=== PATIENT | female | born 1945 | race Caucasian/White ===

== ENCOUNTER 2017-01-28 09:08 | Emergency (ER) | payer BC ==
[2017-01-28 09:29] VITALS: BP 157/60
--- NOTE | 2017-01-28 10:27 | UC ---
Skin Complaint HPI - HPI Summary HPI Summary: The patient comes in today for: 1. Diabetic foot ulcers: Onset: Just a week or so beyond two months. Palliative/provocative: Air can make the sores/ulcer pain worse. Quality: Burning Region: Right foot. Severity: 6/10 Time: Constant. Associated symptoms: Fevers: None. Drainage: Clear. Previous treatment: She has been to the wound clinic locally, "last year--I' m not sure when." She was given clindamycin last time and it helped. * - History of Current Complaint Chief Complaint: UCLowerExtremity Time Seen by Provider: 01/28/17 10:20 Stated Complaint: sores on feet Hx Obtained From: Patient - Allergy/Home Medications Allergies/Adverse Reactions: Allergies Allergy/AdvReac Type Severity Reaction Status Date / Time Latex Allergy Rash Verified 01/23/16 07:43 Home Medications: Home Medications Ibuprofen TAB* [Advil TAB*] 1,000 mg PO Q4HR PRN 01/28/17 [History Confirmed 02/11] Sitagliptin (NF) [Januvia (NF)] 1 tab PO DAILY 01/28/17 [History Confirmed 01/28] Review of Systems Constitutional: Negative Skin: Rash - Left foot. Eyes: Negative ENT: Negative Respiratory: Negative Cardiovascular: Negative Gastrointestinal: Negative Genitourinary: Negative All Other Systems Reviewed And Are Negative: Yes PMH/Surg Hx/FS Hx/Imm Hx Previously Healthy: No - Skin: left foot ulcer. Endocrine History Of: Reports: Diabetes - Type 2 Denies: Thyroid Disease, Hyperthyroidism, Hypothyroidism, Dyslipidemia Cardiovascular History Of: Reports: Hypertension Denies: Cardiac Disorders, Pacemaker/ICD, Myocardial Infarction, Congestive Heart Failure, Atrial Fibrillation, Deep Vein Thrombosis, Bleeding Disorders Respiratory History Of: Denies: COPD, Asthma, Bronchitis, Pneumonia, Pulmonary Embolism GI/ History Of: Denies: Gastroesophageal Reflux, Ulcer, Gastrointestinal Bleed, Gall Bladder Disease, Kidney Stones, Diverticulitis, Renal Disease, Urosepsis Neurological History Of: Denies: TIA, CVA, Dementia, Seizures, Migraine Psychological History Of: Denies: Anxiety, Depression, Bipolar Disorder, Schizophrenia, Post Traumatic Stress Disorder Cancer History Of: Reports: Breast Cancer - LEFT 3X 04/08 & 2015 LEFT Denies: Lung Cancer, Colorectal Cancer, Prostate Cancer, Cervical Cancer Other History Of: Anticoagulant Therapy - Aspirin. Negative For: HIV, Hepatitis B, Hepatitis C - Surgical History Surgical History: Yes Surgery Procedure, Year, and Place: Left breast lumpectomy x3, MOST RECENT ;. C section X1 NATURAL X2;. L TKR 2009 [facility] [place] ;. LEFT BREAST BIOPSY WITH CLIPS ; - Family History Known Family History: Positive: Cardiac Disease, Hypertension, Diabetes - Social History Occupation: Employed Full-time Alcohol Use: None Substance Use Type: None Smoking Status (MU): Never Smoked Tobacco Have You Smoked in the Last Year: No - Immunization History Most Recent Influenza Vaccination: none Most Recent Tetanus Shot: unknown Most Recent Pneumonia Vaccination: 2014 Physical Exam Triage Information Reviewed: Yes Appearance: Well-Appearing, No Pain Distress, Well-Nourished Vital Signs: Initial Vital Signs Temp 97.5 F 01/28/17 09:23 Pulse 82 01/28/17 09:23 Resp 18 01/28/17 09:23 BP 157/60 01/28/17 09:23 Pulse Ox 97 01/28/17 09:23 Vital Signs Reviewed: Yes Eyes: Positive: Conjunctiva Clear. Negative: Discharge ENT: Positive: Hearing grossly normal. Negative: Pharyngeal erythema, Nasal congestion, Nasal drainage, TM bulging, TM dull, TM red, Tonsillar swelling, Tonsillar exudate Dental: Negative: Gross Decay/Caries @, Dental Fracture @ Neck: Positive: Supple, Nontender, No Lymphadenopathy. Negative: Nuchal Rigidity Respiratory: Positive: Lungs clear, No respiratory distress, No accessory muscle use. Negative: Crackles, Wheezing Cardiovascular: Positive: RRR, No Murmur Abdomen Description: Positive: Nontender, No Organomegaly, Soft. Negative: Distended, Guarding Musculoskeletal: Positive: Strength Intact, ROM Intact Neurological: Positive: Alert, Muscle Tone Normal Psychological: Positive: Age Appropriate Behavior, Consolable Skin: Positive: Other - She has chronic edema, and varicose veins of the left foot. There are shallow ulcers from 1 x 1.5 cm at the largest of the left lateral foot, to one more on the lateral side and 1 on the medial side of the left foot both under 1 x 1 cm. Course/Dx - Course Course Of Treatment: Patient was told of her treatment options. At this time, she only wants to be started on clindamycine like she had before and to see her primary care provider this coming week. - Diagnoses Provider Diagnoses: Diabetic left foot ulcers. Discharge - Discharge Plan Condition: Stable Disposition: HOME Patient Education Materials: Foot Care for People with Diabetes (ED), Diabetic Foot Ulcers (ED) Referrals: Odalys Adames MD [Primary Care Provider] - (Please see your primary care provider in a week to see how well you are doing. If you get worse, please be seen sooner in the ER or through us.)
== END 2017-01-28 10:50 | disposition home or self-care (01) ==
LOC: UCEAST 09:08
DX: E11.621 Type 2 diabetes mellitus with foot ulcer (principal); Z79.82 Long term (current) use of aspirin
CPT/HCPCS: 99212; G0463

== ENCOUNTER 2018-01-23 07:56 | Day surgery (SDC) | payer BC, OTHER ==
[2018-01-23] MEDS ORDERED: Naloxone* 0.4 MG/ML 1 ML VIAL IV PRN (09:15)
[2018-01-23] MEDS ORDERED: Bupivacaine 0.25% SDV* 30 ML ONE (09:26)
[2018-01-23] MEDS ORDERED: fentaNYL* 50 MCG/ML 2 ML VIAL (100 MCG VIAL) ONE (09:31)
[2018-01-23] MEDS ORDERED: Midazolam* 1 MG/ML 2 ML VIAL (2 MG) ONE (09:31)
[2018-01-23] MEDS ORDERED: ceFAZolin 1 GM in Dextrose (*) 2 GM/100 ML BAG IVPB ONE (09:40)
[2018-01-23] MEDS ORDERED: Propofol* 10 MG/ML 20 ML BTL IV PUSH ONE (09:45)
[2018-01-23 10:54] VITALS: BP 128/76
--- NOTE | 2018-01-28 04:46 | OP ---
DATE OF OPERATION: 01/23/18 - [facility] DATE OF : 49 SURGEON: Paul Nathan MD SHIPPING AND RECEIVING CLERK: JOVANNI Resendiz ANESTHESIOLOGIST: Dr. Mccall. ANESTHESIA: Local MAC. PRE-OP DIAGNOSIS: Right carpal tunnel syndrome. POST-OP DIAGNOSIS: Right carpal tunnel syndrome. OPERATIVE PROCEDURE: Right open carpal tunnel release. INDICATIONS: Liz has had progressive right carpal tunnel syndrome. We talked about risks and benefits. She wanted to proceed with the surgery. ESTIMATED BLOOD LOSS: 2 mL. COMPLICATIONS: None. FINDINGS: As expected. DESCRIPTION OF PROCEDURE: After we come back to the operating room, the area had been infiltrated with 0.25% Marcaine. The arm was prepped and draped in usual fashion. The arm was exsanguinated with the Esmarch and the tourniquet was inflated to 250 mmHg. A 2 to 3 cm incision was then made in the standard location for an open carpal tunnel release. Dissection was carried down through the skin and subcutaneous tissue. Transverse carpal ligament was released just off the radial aspect of the hook of the hamate. The release was completed distally and proximally. The fascia and subcutaneous tissue were released and retracted volarly and ulnarly with Iraida retractor. The remainder of the distal antebrachial fascia and transverse carpal ligament was released with the tenotomy scissors under direct visualization. The release was completed at that point and so I irrigated out the wound. The skin was closed with 4-0 nylon suture. The wound was dressed with Xeroform, 4 x 4s, sterile Webril, and an Cornelio wrap. She was woken up and taken to the recovery room in stable condition. [id number]/[facility] #: [id number] MTDD
== END 2018-01-23 11:02 | disposition home or self-care (01) ==
LOC: OR 07:56
PROVIDERS: ATTEND Orthopaedic Surgery Hand Surgery
DX: G56.01 Carpal tunnel syndrome, right upper limb (principal); E11.9 Type 2 diabetes mellitus without complications; Z79.84 Long term (current) use of oral hypoglycemic drugs; I10 Essential (primary) hypertension; Z85.3 Personal history of malignant neoplasm of breast; M19.90 Unspecified osteoarthritis, unspecified site; L03.116 Cellulitis of left lower limb
CPT/HCPCS: J0690; J2250; J2704; J3010

== ENCOUNTER 2018-02-13 05:52 | Day surgery (SDC) | payer BC, OTHER ==
[2018-02-13] MEDS ORDERED: Buffered Lidocaine 0.9% SYRIN* 5 ML/SYR SYRINGE ONE (05:55)
[2018-02-13] MEDS ORDERED: Buffered Lidocaine 0.9% SYRIN* 5 ML/SYR SYRINGE INTRADERM ONE (06:00)
[2018-02-13] MEDS ORDERED: Bupivacaine 0.25% SDV* 30 ML ONE (06:58)
[2018-02-13] MEDS ORDERED: fentaNYL* 50 MCG/ML 2 ML VIAL (100 MCG VIAL) ONE (07:32)
[2018-02-13] MEDS ORDERED: Midazolam* 1 MG/ML 2 ML VIAL (2 MG) ONE (07:32)
[2018-02-13] MEDS ORDERED: Propofol* 10 MG/ML 20 ML BTL IV PUSH ONE (07:34)
[2018-02-13] MEDS ORDERED: Lidocaine 2% PF * 5 ML VIAL ONE (07:34)
[2018-02-13] MEDS ORDERED: Naloxone* 0.4 MG/ML 1 ML VIAL IV PRN (08:09)
[2018-02-13 08:46] VITALS: BP 137/67
--- NOTE | 2018-02-13 23:06 | OP ---
DATE OF OPERATION: 02/13/18 - [facility] DATE OF : 49 SURGEON: Paul Nathan MD TRACTOR OPERATOR HELPER: JOVANNI Resendiz ANESTHESIOLOGIST: Shaquille Mccall DO ANESTHESIA: Local MAC. PRE-OP DIAGNOSIS: Left carpal tunnel syndrome. POST-OP DIAGNOSIS: Left carpal tunnel syndrome. OPERATIVE PROCEDURE: Left open carpal tunnel release. INDICATIONS: Liz has done well with a right carpal tunnel release. We talked about risks and benefits. She wanted to proceed with left carpal tunnel release. ESTIMATED BLOOD LOSS: 2 mL. COMPLICATIONS: None. FINDINGS: As expected. DESCRIPTION OF PROCEDURE: Liz was seen in the preoperative holding area. The correct side, site, and the procedure were identified. We came back to the operating room. The arm was prepped and draped in the usual fashion. A time- out was performed. I began by exsanguinating the arm with Esmarch and the tourniquet was inflated to 250 mmHg. A 2- to 3-cm longitudinal incision was made in a standard location for an open carpal tunnel release. Dissection was carried down through the skin and subcutaneous tissue. The transverse carpal ligament was released off the radial aspect of the hook of the hamate. The release was completely distally and I then proximally released the fascia and subcutaneous tissue and under direct visualization, I released the remainder of the transverse carpal ligament and the distal antebrachial fascia with the tenotomy scissors. I then checked the release, everything was completely released distally and proximally. There was absolutely no compression on the nerve. The wound was irrigated out. The skin was closed with 4-0 nylon suture. Wound was dressed with Xeroform, 4x4s, sterile Webril, and an Cornelio bandage. She was taken to the recovery room in stable condition. [id number]/[facility] #: [id number] MTDD
== END 2018-02-13 09:07 | disposition home or self-care (01) ==
LOC: OR 05:52
PROVIDERS: ATTEND Orthopaedic Surgery Hand Surgery
DX: G56.02 Carpal tunnel syndrome, left upper limb (principal); I10 Essential (primary) hypertension; E11.9 Type 2 diabetes mellitus without complications; Z85.3 Personal history of malignant neoplasm of breast; M19.90 Unspecified osteoarthritis, unspecified site; L03.116 Cellulitis of left lower limb; Z79.82 Long term (current) use of aspirin; Z79.899 Other long term (current) drug therapy
CPT/HCPCS: J2250; J2704; J3010

== ENCOUNTER 2018-06-23 08:09 | Emergency (ER) | payer BC ==
[2018-06-23 08:18] VITALS: BP 176/80
--- NOTE | 2018-06-23 08:54 | UC ---
Knee Pain HPI - HPI Summary HPI Summary: RIGHT KNEE PAIN WORSENING OVER THE PAST 3 WEEKS. NO DISCRETE INJURY OR TRAUMA. PATIENT REPORTS SHE HAD A TOTAL LEFT KNEE REPLACEMENT ABOUT 9 YEARS AGO AND STATES HER RIGHT KNEE FEELS LIKE IT'S GOING DOWN THE SAME ROAD. HAS AN APPOINTMENT WITH DR. LYLES ON 07/07/18. BUT WAS SENT FROM WORK TODAY BECAUSE SHE CAN BARELY WALK. - History of Current Complaint Chief Complaint: UCLowerExtremity Stated Complaint: LEG PAIN Time Seen by Provider: 06/23/18 08:23 Hx Obtained From: Patient Onset/Duration: Gradual Onset, Lasting Weeks, Still Present Severity Initially: Moderate Severity Currently: Moderate Pain Intensity: 8 Pain Scale Used: 0-10 Numeric Character: Sharp, Aching Aggravating Factor(s): Movement, Weight Bearing Alleviating Factor(s): Rest Able to Bear Weight: Yes - WITH PAIN - Allergies/Home Medications Allergies/Adverse Reactions: Allergies Allergy/AdvReac Type Severity Reaction Status Date / Time latex Allergy Rash Verified 06/23/18 08:18 Home Medications: Home Medications Calcium Carb/Mag/Vitamin D3 [Coral Calcium 1,500 mg Cap] 1 cap PO DAILY [History Confirmed 06/23/18] Cholecalciferol (Vitamin D3) [Vitamin D3] 5,000 unit PO DAILY 06/23/18 [History Confirmed 06/23/18] Sitagliptin Phosphate [Januvia] 30 mg PO DAILY 06/23/18 [History Confirmed 06/23] PMH/Surg Hx/FS Hx/Imm Hx Endocrine History: Diabetes Cardiovascular History: Hypertension Cancer History: Breast Cancer Other History Of: Anticoagulant Therapy - Aspirin. Negative For: HIV, Hepatitis B, Hepatitis C - Surgical History Surgical History: Yes Surgery Procedure, Year, and Place: 2005, 2009, [address] [facility] [place]. [address] [facility] [place]. [address] [facility] [place] ;. 12/27/2017 LEFT BREAST BIOSPSY, CLIPS, NEG. [facility] [place] - Family History Known Family History: Positive: Cardiac Disease, Hypertension, Diabetes - Social History Alcohol Use: None Substance Use Type: None Smoking Status (MU): Never Smoked Tobacco Have You Smoked in the Last Year: No - Immunization History Most Recent Influenza Vaccination: none Most Recent Tetanus Shot: unknown Most Recent Pneumonia Vaccination: 2014 Review of Systems Constitutional: Negative Skin: Negative Respiratory: Negative Cardiovascular: Negative Gastrointestinal: Negative Musculoskeletal: Arthralgia All Other Systems Reviewed And Are Negative: Yes Physical Exam Triage Information Reviewed: Yes Appearance: Well-Appearing, No Pain Distress, Well-Nourished Vital Signs: Initial Vital Signs Temp 98 F 06/23/18 08:14 Pulse 81 06/23/18 08:14 Resp 16 06/23/18 08:14 BP 176/80 06/23/18 08:14 Pulse Ox 100 06/23/18 08:14 Vital Signs Reviewed: Yes Eyes: Positive: Conjunctiva Clear ENT: Positive: Hearing grossly normal Neck: Positive: Supple Respiratory: Positive: No respiratory distress, No accessory muscle use Cardiovascular: Positive: Pulses Normal Abdomen Description: Positive: Soft Musculoskeletal: Positive: ROM Intact, No Edema, Other: - RIGHT KNEE: NO TENDERNESS OVER ANY BONY PROMINENCES. MCL AND LCL INTACT TO STRESS TESTING. NEG LACHMANS. NEG DRAWERS SIGNS. TENDER OVER MEDIAL AND LATERAL JOINT LINES AND POSITIVE MCMURRAYS. POS PATELLAR APPREHENSION TEST. NO TENDERNESS OVER PATELLAR LIGAMENT OR QUADRICEPS TENDON. FULL ROM. POSITIVE CREPITUS Neurological: Positive: Alert Psychological: Positive: Age Appropriate Behavior Skin: Negative: rashes Diagnostics - Radiology RIGHT KNEE XRAY Xray Interpretation: Positive (See Comments) - moderate to advanced tricompartmental osteoarthritis Radiology Interpretation Completed By: Radiologist Knee Pain Course/Dx - Differential Dx/Diagnosis Provider Diagnoses: MOD/ADVANCED OSTEOARTHRITIS RIGHT KNEE Discharge - Sign-Out/Discharge Documenting (check all that apply): Patient Departure - Discharge Plan Condition: Stable Disposition: HOME Prescriptions: HYDROcodone/ACETAMIN 5-325 MG* [[place] 5-325 TAB*] 1 tab PO Q6H PRN #15 tab MDD 4 PRN Reason: Pain Ibuprofen TAB* [Motrin TAB* 800 MG] 800 mg PO Q8H PRN #30 tab PRN Reason: Pain Patient Education Materials: Osteoarthritis (ED), Knee Pain (ED) Forms: *Work Release Referrals: Odalys Adames MD [Primary Care Provider] - If Needed Additional Instructions: MODERATE TO SEVERE OSTEOARTHRITIS SEEN ON X-RAY TODAY. REST, COMPRESS, ELEVATE. USE YOUR CRUTCHES NEEDED TO HELP WITH MOBILITY. KEEP YOUR ORTHOPEDIC FOLLOW-UP WITH DR. LYLES ON 07/07/18. NOTE FOR WORK PROVIDED TODAY. IBUPROFEN FOR DISCOMFORT. HYDROCODONE FOR BREAKTHROUGH. WHILE YOU'RE USING HYDROCODONE DO NOT USE TRAMADOL. - Billing Disposition and Condition Condition: STABLE Disposition: Home
--- NOTE | 2018-06-23 09:14 | RAD ---
HISTORY: worsening pain COMPARISONS: None VIEWS: 4, Frontal, lateral, axial, and oblique views of the right knee FINDINGS: BONE DENSITY: There is diffuse osteopenia. BONES: There is no displaced fracture. JOINTS: There is moderate to advanced tricompartmental osteoarthritis. There is no suprapatellar joint effusion or lipohemarthrosis. ALIGNMENT: There is no dislocation. SOFT TISSUES: Unremarkable. OTHER FINDINGS: None. IMPRESSION: OSTEOARTHRITIS. NO ACUTE OSSEOUS INJURY. IF SYMPTOMS PERSIST, RECOMMEND REPEAT IMAGING.
== END 2018-06-23 10:01 | disposition home or self-care (01) ==
LOC: UCEAST 08:09
DX: M17.11 Unilateral primary osteoarthritis, right knee (principal); I10 Essential (primary) hypertension; E11.9 Type 2 diabetes mellitus without complications; Z85.3 Personal history of malignant neoplasm of breast; Z79.82 Long term (current) use of aspirin
CPT/HCPCS: 99212; G0463

== ENCOUNTER 2018-08-17 10:40 | Inpatient (IN) | payer BC ==
--- NOTE | 2018-08-08 20:37 | HP ---
HISTORY AND PHYSICAL: DATE OF ADMISSION/SURGERY: 08/17/18 DATE OF OFFICE VISIT: 08/07/18 SURGEON: Alejandra Castanon MD * (DICTATED BY JOVANNI VILLALPANDO) PROCEDURE: Right total hip arthroplasty. CHIEF COMPLAINT: Right hip pain. HISTORY OF PRESENT ILLNESS: Ms. Leon is a 73-year-old female with complaints of right hip pain. She has failed conservative treatment and elected to proceed with a right total hip arthroplasty. PAST MEDICAL HISTORY: Breast cancer, diabetes, and hypertension. PAST SURGICAL HISTORY: Lumpectomy x3, left total knee arthroplasty, bilateral carpal tunnel release, and . CURRENT MEDICATIONS: 1. Lisinopril 30 mg daily. 2. Januvia 30 mg daily. 3. Metformin 500 mg twice a day. 4. Furosemide 20 mg every day. 5. Aspirin 81 mg daily. 6. Calcium. 7. Vitamin D3. 8. Vitamin C. 9. Potassium. 10. Hydrochlorothiazide 12.5 mg daily. 11. Tramadol 50 mg every 6 hours as needed. ALLERGIES: To LATEX and TAPES. FAMILY HISTORY: Diabetes, kidney disease, stroke, and heart disease. SOCIAL HISTORY: She is a 73-year-old female. She lives with her sister. She does not smoke, use drugs or alcohol. REVIEW OF SYSTEMS: A complete 14-point review of systems was reviewed with the patient. It was positive for diabetes. She denies a history of DVT, PE, hepatitis, HIV, or anesthesia problems. PHYSICAL EXAMINATION GENERAL: She is well developed, well nourished, in no acute distress. VITAL SIGNS: She stands 5 feet 8 inches tall, weighs 225 pounds. Her blood pressure is 144/82, and heart rate is 72. HEENT: Normocephalic, atraumatic. NECK: Supple. No palpable lymph nodes. PULMONARY: Lungs are clear to auscultation bilaterally. CARDIO: Regular rate and rhythm. Strong S1, S2. ABDOMEN: Soft, nontender, nondistended. MUSCULOSKELETAL: Right lower extremity: The skin is intact. There are no open wounds or abrasions. She walks with an antalgic-type gait favoring her right hip. She has decreased internal and external rotation of the right hip. She has a 2+ dorsalis pedis pulse, intact sensation. Her lower extremity muscle group strengths are intact at 5/5. NEUROLOGICAL: She is alert and oriented x3. ASSESSMENT AND PLAN: Ms. Leon is a 73-year-old female with end-stage osteoarthritis of the right hip. She has failed conservative treatment and elected to proceed with a right total hip arthroplasty, which is scheduled for 08/17/[address] Castanon discussed the risks and benefits of the surgery at today's visit and all of her questions were answered. She will follow up with Dr. Castanon 2 weeks after the surgery. JOVANNI VILLALPANDO [id number]/[facility] #: [id number] GUMARO
[~2018-08-17 10:40] MED LIST: Buffered Lidocaine 0.9% SYRIN* 5 ML/SYR SYRINGE INTRADERM ONE; Famotidine IV* 10 MG/ML 2 ML (20 mg) IV ONE
[2018-08-17] MEDS ORDERED: Dexamethasone IV* 4 MG/ML 1 ML (4 MG) ONE (10:58)
[2018-08-17] MEDS ORDERED: ROPIVACAINE 5 MG/ML 30 ML BTL (0.5%) ONE (10:58)
[2018-08-17] MEDS ORDERED: Lidocaine 2% PF * 5 ML VIAL ONE (10:58)
[2018-08-17] MEDS ORDERED: fentaNYL* 50 MCG/ML 2 ML VIAL (100 MCG VIAL) ONE ×4 (10:58→15:48)
[2018-08-17] MEDS ORDERED: Ondansetron INJ* 2 MG/ML VIAL ONE (10:58)
[2018-08-17] MEDS ORDERED: Ketorolac INJ* 30 MG/ML 1 ML VIAL ONE (10:58)
[2018-08-17] MEDS ORDERED: Propofol* 10 MG/ML 20 ML BTL IV PUSH ONE (10:58)
[2018-08-17] MEDS ORDERED: Midazolam* 1 MG/ML 5 ML VIAL (5 MG) ONE (10:59)
[2018-08-17] MEDS ORDERED: KETAMINE HCL* 50 MG/ML 10 ML VIAL ONE (10:59)
[2018-08-17] MEDS ORDERED: HYDROmorphone INJ1* 1 MG/ML SYRINGE ONE ×2 (11:09→16:59)
[2018-08-17] MEDS ORDERED: ceFAZolin 2 GM in NS PREMIX(*) 2 GM/100 ML BAG IVPB ONE (11:36)
[2018-08-17] MEDS ORDERED: Famotidine IV* 10 MG/ML 2 ML (20 mg) ONE (12:03)
[2018-08-17] MEDS ORDERED: Cisatracurium* 2 MG/ML MDV 5 ML ONE (12:08)
--- NOTE | 2018-08-17 15:00 | RAD ---
INDICATION: Right hip replacement surgery. COMPARISON: Comparison is made with a prior study from July 07, 2018. TECHNIQUE: A single portable AP view of the right hip was obtained in the operating room. FINDINGS: The patient is undergoing a total right hip replacement surgery. The acetabular prostheses is in place. There is a femoral prostheses template in place. IMPRESSION: INTRAOPERATIVE CONTROL FILMS.
--- NOTE | 2018-08-17 17:30 | RAD ---
HISTORY: s/p RIGHT BETINA COMPARISONS: July 07, 2018 VIEWS: 3 , Frontal view of the pelvis with frontal and crosstable lateral views of the right hip FINDINGS: BONE DENSITY: Normal. BONES: The patient is status post right hip arthroplasty. There is no hardware failure or osteolysis. JOINTS: The patient is status post right hip arthroplasty. ALIGNMENT: There is no dislocation. SOFT TISSUES: There are calcified uterine fibroids. OTHER FINDINGS: Degenerative changes noted of the lumbar spine. IMPRESSION: STATUS POST RIGHT HIP ARTHROPLASTY.
--- OUTSIDE RECORDS SUMMARY | 2018-08-17 17:47 | XMS REPORT ---
:1945 External Reference #:[id number] Author Organization [employer] Address [address] [facility] [place] [address] Phone [phone] Care Team Providers Name Role Phone Odalys Adames MD Primary Care Physician Unavailable Payers Type Date Identification Numbers Payment Provider Subscriber Health Maintenance Policy Number: [facility] Ashia Pradhantler [facility] ([facility]) [id number] Group Number: [id number] [address] [address] PayID: [id number] BRAULIO Garcia [id number] Workers Compensation Effective: 10/05/2017 Policy Number: Travelers Ashia Herrera [id number] Onset: 10/05/2017 Group Name: Sheron [phone] [address] PayID: [id number] [place] [address] Problems Date Description Provider Status Onset: 07/07/2018 Arthroplasty of knee Alejandra Castanon M.D. Active Onset: 07/07/2018 Localized, primary osteoarthritis of the Alejandra Castanon M.D. Active pelvic region and thigh Onset: 07/07/2018 Localized, primary osteoarthritis Alejandra Castanon M.D. 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 ETOH Use Denies alcohol use Smoking Patient has never smoked Exercise Type/Frequency Exercises sporadically Allergies, Adverse Reactions, Alerts Date Description Reaction Status Severity Comments 10/26/2017 Latex active 10/26/2017 Tape active Medications Medication Date Status Form Strength Qnty SIG Indications Ordering Provider Lisinopril 10/26/ Active Tablets 30mg 30tab 1 by Paul Mart s mouth Nathan, every MD day Januvia 10/26/ Active Tablets 30mg 90tab 1 by Paul Nathan, every MD day Metformin HCL 0000/ Active Tablets 500mg 1 by Unknown 0000 mouth twice a day Furosemide 00/00/ Active Tablets 20mg 1 by Unknown 0000 mouth every day Hydrochlorothiazide 00/ Active Capsules 12.5mg 1 by Unknown 0000 mouth every day Tramadol HCL / Active Tablets 50mg 1-2 Unknown 0000 tablets every 6 hours as needed Aspirin 81 Low Dose / Hx 1 by Unknown 0000 - mouth 2017 day Coral Calcium / Hx Capsules 1500mg 2 tabs Unknown 0000 - daily 2017 Vitamin D3 / Hx Capsules 5000Unit 1 by Unknown 0000 - mouth 2017 day Vitamin C / Hx 1 tab by Unknown 0000 - mouth 08/06/ a 2017 day Potassium /00/ Hx Tablets 99mg once a Unknown 0000 - day 2017 Ibuprofen // Hx Tablets 200mg as Unknown 0000 - needed 2017 Vital Signs Date Vital Result Comment 08/07/2018 Height 68 inches 5'8" Weight 224.00 lb Heart Rate 72 /min BP Systolic 144 mmHg BP Diastolic 82 mmHg BMI (Body Mass Index) 34.1 kg/m2 07/07/2018 Height 68.5 inches 5'8.50" Weight 223.00 lb Heart Rate 76 /min BP Systolic Sitting 144 mmHg BP Diastolic Sitting 70 mmHg Respiratory Rate 16 /min Pain Level 7 BMI (Body Mass Index) 33.4 kg/m2 03/21/2018 Height 68.5 inches 5'8.50" Heart Rate 81 /min BP Systolic 136 mmHg BP Diastolic 88 mmHg Respiratory Rate 16 /min Body Temperature 98.6 F Pain Level 2 02/21/2018 Height 68.5 inches 5'8.50" Weight 240.00 lb Heart Rate 85 /min Respiratory Rate 15 /min Body Temperature 97.9 F Pain Level 2 BMI (Body Mass Index) 36.0 kg/m2 01/31/2018 Height 68.5 inches 5'8.50" Weight 240.00 lb Heart Rate 77 /min BP Systolic 142 mmHg BP Diastolic 84 mmHg Respiratory Rate 15 /min Body Temperature 98.6 F Pain Level 1 BMI (Body Mass Index) 36.0 kg/m2 01/03/2018 Height 68.5 inches 5'8.50" Heart Rate 97 /min BP Systolic 148 mmHg BP Diastolic 84 mmHg Respiratory Rate 16 /min Body Temperature 98.7 F Pain Level 2 12/02/2017 Height 68.5 inches 5'8.50" Heart Rate 62 /min Respiratory Rate 20 /min Body Temperature 97.8 F Pain Level 0 10/26/2017 Height 68.5 inches 5'8.50" Weight 240.00 lb BP Systolic 150 mmHg BP Diastolic 82 mmHg Body Temperature 97.7 F Pain Level 5 BMI (Body Mass Index) 36.0 kg/m2 Results Test Date Test Result H/L Range Note Laboratory test 02/13/2018 Point of Care 134 mg/dL High 70-100 1 finding Glucose Laboratory test 01/23/2018 Point of Care 133 mg/dL High 70-100 2 finding Glucose Laboratory test 10/24/2017 Surgical Pathology SEE RESULT BELOW 3 finding Wound Culture/Sensi 04/11/2017 Wound/Misc SEE RESULT BELOW 4 Culture-Gram Stain Wound Culture/Sensi 03/03/2017 Wound/Misc SEE RESULT BELOW 5, 6 Culture-Gram Stain 1 Nuclear Physics Professor: [id number] Nuclear Physics Professor: [id number] 3 SEE RESULT BELOW Name: ASHIA HERRERA : [address]: Amina Solomon MD Acct: [id number] Unit: [id number] AGE: 72 Location: WOUND Re10/24/17 SEX: F Status: REG REF SPEC: [id number] LUKE: 10/24/17 [facility] DR: Amina Solomon MD REQ: [id number] RECD: 10/24/17 STATUS: JUAN ESTRADA DR: Ashlee Adames MD _ ORDERED: LEVEL 4 FINAL DIAGNOSIS Skin, left foot, biopsy: -- Ulcer and ulcer bed with chronic stasis change. -- No evidence of neoplasia. CLINICAL HISTORY Type 2 diabetes, hypertension, osteoarthritis PRE-OPERATIVE DIAGNOSIS Chronic non-healing ulceration left foot GROSS DESCRIPTION The specimen is received in formalin labeled, Left Foot Ulcer, and consists of a 0.4 cm scaly deluna-red circular skin punch excised to a depth of 0.2 cm which is bisected and submitted entirely in one cassette. Signed (signature on file) Macie Diamond MD [id number] END OF REPORT * ML=Testing performed at Main Lab DEPARTMENT OF PATHOLOGY, [address] [place] [address] Richard Browning M.D. Director [facility] # [id number] 4 SEE RESULT BELOW Name: ASHIA HERRERA : [address]: Ashlee Arvizu MD Acct: [id number] Unit: [id number] AGE: 71 Location: WOUND Re04/11/17 SEX: F Status: REG REF SPEC: [id number] LUKE: 04/11/[address]: Ashlee Arvizu MD REQ: [id number] RECD: 04/11/17 STATUS: TYLOR ESTRADA DR: Blanca Castro PREDATOR CONTROL TRAPPER Odalys Adames MD _ SOURCE: FOOT,LEFT SPDESC: ORDERED: Culture Stain Procedure Result Reported Site Wound/Misc Gram Stain Final 04/11/17- 1029 ML 3+ Epithelial Cells 1+ Neutrophils 3+ Gram Positive Cocci 1+ Gram Positive Bacilli Wound/Misc Culture Final 04/13/17- 0802 ML Organism 1 NORMAL NNEKA Quantity 3+ MIXED NNEKA - Significance questioned; possible contamination. Suggest carefully collected specimen for recollect. * ML - MAIN LAB ([facility]1) . END OF REPORT * ML=Testing performed at Main Lab DEPARTMENT OF PATHOLOGY, [address] [place] [address] Richard Browning M.D. Director [facility] # [id number] 5 LEFT MEDIAL FOOT ULCER 6 SEE RESULT BELOW Name: ASHIA HERRERA : [address]: Ashlee Arvizu MD Acct: [id number] Unit: [id number] AGE: 71 Location: WOUND Re03/03/17 SEX: F Status: REG REF SPEC: [id number] LUKE: 03/03/[address]: Blanca Castro NP REQ: [id number] RECD: 03/03/17 STATUS: TYLOR ESTRADA DR: Ashlee Adames MD _ SOURCE: FOOT,LEFT SPDESC: ORDERED: Culture Stain COMMENTS: LEFT MEDIAL FOOT ULCER QUERIES: Specimen Description RED SWAB Procedure Result Reported Site Wound/Misc Gram Stain Final 03/03/17- 1059 ML 1+ Epithelial Cells 3+ Neutrophils 1+ Gram Positive Bacilli Wound/Misc Culture Final 03/05/17- 08 ML Organism 1 NORMAL NNEKA Quantity 1+ * ML - MAIN LAB ([facility]) . END OF REPORT * ML=Testing performed at Main Lab DEPARTMENT OF PATHOLOGY, [address] [place] [address] Richard Browning M.D. Director [facility] # [id number] Procedures Date CPT Code Description Status 02/13/2018 Carpal Tunnel Release Completed 02/13/2018 Carpal Tunnel Release Completed 02/13/2018 Carpal Tunnel Release Completed 01/23/2018 Carpal Tunnel Release Completed 01/23/2018 Carpal Tunnel Release Completed 01/23/2018 Carpal Tunnel Release Completed 10/26/2017 Aspiration &/Or Inj Of Ganglion Cyst(S) Any Location Completed 10/26/2017 Aspiration &/Or Inj Of Ganglion Cyst(S) Any Location Completed 10/26/2017 21214 Aspiration &/Or Inj Of Ganglion Cyst(S) Any Location Completed 10/24/2017 90930 Removal Devitalization Tissue Wound Less Than Equal 20 Completed Square CM 03/28/2017 72296 Removal Devitalization Tissue Wound Less Than Equal 20 Completed Square CM 03/07/2017 10251 Removal Devitalized Tissue Wound Greater Than 20 Square Completed CM 03/07/2017 38534 Removal Devitalization Tissue Wound Less Than Equal 20 Completed Square CM 03/03/2017 02395 Removal Devitalization Tissue Wound Less Than Equal 20 [address] Square CM 10/06/2015 Mammogram Completed 09/25/2015 Mammogram Completed 11/17/2012 Mammogram Completed 11/14/2012 Mammogram Completed 03/08/2012 Mammogram Completed Encounters Type Date Location Provider CPT E/M Dx Office Visit 07/07/2018 [facility] Alejandra Castanon M.D. 69862 M25.561 9:00a [facility] M25.461 M17.11 M25.551 M16.11 Z96.652 M21.061 M25.562 M21.162 Office Visit 12/02/2017 9:45a [facility] [place] [address] G56.03 [facility] Office Visit 10/26/2017 8:00a [facility] [place] [address] M67.441 [facility] Office Visit 05/04/2017 3:30p [facility] AT Amina Solomon, [address] E11.621 [facility] L97.522 L97.822 I87.313 I10 Office Visit 04/27/2017 1:00p [place] [address] E11.621 [facility] L97.522 L97.822 I87.313 I10 Office Visit 03/07/2017 12:10p [facility] Blanca Castro DNP, [address] E11.621 [facility] RN, EXAMINING CHAIR ASSEMBLER-BC L97.522 L97.822 R60.0 M79.662 I87.2 Office Visit 03/03/2017 10:55a [facility] Blanca Castro DNP, [address] E11.621 AT [facility] RN, EXAMINING CHAIR ASSEMBLER-LJ L97.522 L97.822 R60.0 M79.662 Office Visit 06/30/2016 9:28a [facility] Keanu Astudillo 67446 L03.116 Infectious Diseases Keith Uribe Z96.652 Office Visit 06/30/2016 2:18p [facility] Alysha Boo, 01796 L03.116 [facility] Keith E11.621 R65.20 Office Visit 06/29/2016 9:16a [facility] Keanu Astudillo 10061 L03.116 Infectious Diseases Keith Uribe Z96.652 I87.2 E11.40 Office Visit 06/28/2016 2:16p [facility] Sveta Scott, 13338 L03.116 [facility] PREDATOR CONTROL TRAPPER I83.12 I83.11 A41.9 Plan of Care Future Appointment(s):08/14/2018 9:15 am - Alejandra Castanon M.D. at [facility]08/17/2018 2:30 pm - Denis Bermudez PA-C at [facility]08/17/2018 2:30 pm - JOVANNI Camarillo at [facility]08/17/2018 2:30 pm - Alejandra Castanon M.D. at [facility]08/07/2018 - Alejandra Castanon M.D.M25.551 Pain in right hipFollow up:Follow up: 6.11 Unilateral primary osteoarthritis, right hip
--- OUTSIDE RECORDS SUMMARY | 2018-08-17 17:47 | XMS REPORT ---
:1945 External Reference #:[id number] Author Organization [employer] Address [address] [place] [address] Phone [phone] Care Team Providers Name Role Phone Odalys Adames MD Primary Care Physician Unavailable Payers Type Date Identification Numbers Payment Provider Subscriber Health Maintenance Policy Number: [facility] Ashia Pradhantler [facility] ([facility]) [id number] Group Number: [id number] [address] [address] PayID: [id number] [place] [address] Workers Compensation Effective: 10/05/2017 Policy Number: [employer] Ashia Herrera [id number] Onset: 10/05/2017 Group Name: Sheron [phone] [address] PayID: [id number] [place] [address] Problems Date Description Provider Status Onset: 07/07/2018 [...] 30mg 30tab 1 by Paul Mart s marissa Nathan, every MD day Januvia 10/26/ Active Tablets 30mg 90tab 1 by Paul Nathan, every MD day Metformin HCL 00/ Active Tablets 500mg 1 by Unknown 0000 mouth twice a day Furosemide /00/ Active Tablets 20mg 1 by Unknown 0000 mouth every day Hydrochlorothiazide / Active Capsules 12.5mg 1 by Unknown 0000 [...] tab by Unknown 0000 - mouth 08/06/ once a 2017 day Potassium / Hx Tablets 99mg once a Unknown 0000 - day 2017 Ibuprofen / Hx Tablets 200mg as Unknown 0000 - needed 2017 Vital Signs Date Vital Result Comment 08/14/2018 Height 68 inches 5'8" Heart Rate 72 /min BP Systolic 122 mmHg left arm large cuff BP Diastolic 70 mmHg left arm large cuff Respiratory Rate 16 /min Body Temperature 97.6 F Pain Level 4 08/07/2018 Height 68 inches 5'8" Weight 224.00 [...] Test Date Test Result H/L Range Note Urinalysis Profile 08/07/2018 Urine Color Straw Urine Appearance Clear Urine Specific [place] 1.005 Low 1.010-1.030 Urine pH 7.0 5-9 Urine Urobilinogen Negative Negative Urine Ketones Negative Negative Urine Protein Negative Negative Urine Leukocytes 1+ Negative Urine Blood Negative Negative Urine Nitrite Negative Negative Urine Bilirubin Negative Negative Urine Glucose Negative Negative Urine White Blood Cell Trace(0-5/hpf) Absent Urine Red Blood Cell Trace(0-2/hpf) Absent Urine Bacteria Absent Absent Urine Squamous Epithelial Cell Present Absent Inr/Protime 08/07/2018 Inr 0.87 0.77-1.02 Laboratory test finding 08/07/2018 Partial Thrombo Time 30.1 seconds 26.0 -36.3 PTT Type & Screen 08/07/2018 Patient Blood Type A Positive Antibody Screen NEGATIVE Urine Culture And 08/07/2018 Urine Culture SEE RESULT 1 Sensitivities BELOW Laboratory test finding 02/13/2018 Point of Care 134 mg/dL High 70-100 2 Glucose Laboratory test finding 01/23/2018 Point of Care 133 mg/dL High 70-100 3 Glucose Laboratory test finding 10/24/2017 Surgical Pathology SEE RESULT 4 BELOW Wound Culture/Sensi 04/11/2017 Wound/Misc SEE RESULT 5 Culture-Gram Stain BELOW Wound Culture/Sensi 03/03/2017 Wound/Misc SEE RESULT 6, 7 Culture-Gram Stain BELOW 1 SEE RESULT BELOW Name: ASHIA HERRERA : [address]: Alejandra Castanon MD Acct: [id number] Unit: [id number] AGE: 73 Location: PAT Re08/07/18 SEX: F Status: REG REF SPEC: [id number] LUKE: 08/07/[address]: Alejandra Castanon MD REQ: [id number] RECD: 08/07/18 STATUS: COMP _ SOURCE: URINE SPDESC: ORDERED: Urine Culture QUERIES: Urine Source: Clean Catch Procedure Result Reported Site Urine Culture Final 08/08/18- 1246 ML No growth of clinically significant organisms * ML - Main Lab . END OF REPORT DEPARTMENT OF PATHOLOGY, [address] [place] [address] Richard Browning M.D. Director [facility] # [id number] 2 [employer] Supervisor: [id number] [employer] Supervisor: [id number] 4 SEE RESULT BELOW Name: ASHIA HERRERA : [address]: Amina Solomon MD Acct: [id number] Unit: [id number] AGE: 72 Location: WOUND Re10/24/17 SEX: F Status: REG REF SPEC: [id number] LUKE: 10/24/17 [facility] DR: Amina Solomon MD REQ: [id number] RECD: 10/24/171 STATUS: JUAN ESTRADA DR: Ashlee Adames MD [...] performed at Main Lab DEPARTMENT OF PATHOLOGY, [address] [place] [address] Richard Browning M.D. Director [facility] # [id number] 5 SEE RESULT BELOW Name: ASHIA HERRERA : [address]: Ashlee Arvizu MD Acct: [id number] Unit: [id number] AGE: 71 Location: WOUND Re04/11/17 SEX: F Status: REG REF SPEC: [id number] LUKE: 04/11/17 [facility] DR: Ashlee Arvizu MD REQ: [id number] RECD: 04/11/17 STATUS: TYLOR ESTRADA DR: Blanca Castro MOLASSES PREPARER Odalys Adames MD _ SOURCE: FOOT,LEFT SPDESC: [...] for recollect. * ML - MAIN LAB ([facility]) . END OF REPORT * ML=Testing performed at Main Lab DEPARTMENT OF PATHOLOGY, [address] [place] [address] Richard Browning M.D. Director [facility] # [id number] 6 LEFT MEDIAL FOOT ULCER 7 SEE RESULT BELOW Name: ASHIA HERRERA : [address]: Ashlee Arvizu MD Acct: [id number] Unit: [id number] AGE: 71 Location: WOUND Re03/03/17 SEX: F Status: REG REF SPEC: [id number] LUKE: 03/03/17-9[address] [facility] DR: Blanca Castro MOLASSES PREPARER REQ: [id number] RECD: 03/03/17 STATUS: TYLOR ESTRADA DR: Ashlee Adames MD _ SOURCE: FOOT,LEFT SPDESC: ORDERED: Culture Stain COMMENTS: LEFT MEDIAL FOOT ULCER QUERIES: Specimen Description RED SWAB Procedure Result Reported Site Wound/Misc Gram Stain Final 03/03/17- 1059 ML 1+ Epithelial Cells 3+ Neutrophils 1+ Gram Positive Bacilli Wound/Misc Culture Final 03/05/17- 0829 ML Organism 1 NORMAL NNEKA Quantity 1+ * ML - MAIN LAB ([facility]1) . END OF REPORT * ML=Testing performed at Main Lab DEPARTMENT OF PATHOLOGY, [address] [place] [address] Richard Browning M.D. Director [facility] # [id number] Procedures Date CPT Code Description Status 02/13/201889769 Carpal Tunnel Release Completed 02/13/201823437 Carpal Tunnel Release Completed 02/13/201868940 Carpal Tunnel Release Completed 01/23/201801374 Carpal Tunnel Release Completed 01/23/201860503 Carpal Tunnel Release Completed 01/23/201833255 Carpal Tunnel Release Completed 10/26/2017 Aspiration &/Or Inj Of Ganglion Cyst(S) Any Location Completed 10/26/2017 Aspiration &/Or Inj Of Ganglion Cyst(S) Any Location Completed 10/26/2017 Aspiration &/Or Inj Of Ganglion Cyst(S) Any Location Completed 10/24/2017 50718 Removal Devitalization Tissue Wound Less Than Equal 20 Completed [facility] 03/28/2017 51047 Removal Devitalization Tissue Wound Less Than Equal 20 Completed Square CM 03/07/2017 61490 Removal Devitalized Tissue Wound Greater Than 20 Square Completed CM 03/07/2017 02511 Removal Devitalization Tissue Wound Less Than Equal 20 Completed Square CM 03/03/2017 05314 Removal Devitalization Tissue Wound Less Than Equal 20 Completed Square CM 10/06/2015 Mammogram Completed 09/25/2015 Mammogram Completed 11/17/2012 Mammogram Completed 11/14/2012 Mammogram Completed 03/08/2012 Mammogram Completed Encounters Type Date Location Provider CPT E/M Dx Office Visit 07/07/2018 [facility] Alejandra Castanon M.D. 54869 M25.561 9:00a Of [facility]. M25.461 M17.11 M25.551 M16.11 Z96.652 M21.061 M25.562 M21.162 Office Visit 12/02/2017 9:45a [facility] [place] [address] G56.03 C.[facility] Office Visit 10/26/2017 8:00a [facility] [place] [address] M67.441 C.M[facility]A. Office Visit 05/04/2017 3:30p W[facility] Care Center AT Amina Solomon, [address] E11.621 [facility] L97.522 L97.822 I87.313 I10 Office Visit 04/27/2017 1:00p [place] [address] E11.621 [facility] L97.522 L97.822 I87.313 I10 Office Visit 03/07/2017 12:10p [facility] Blanca Castro DNP, [address] E11.621 AT [facility] RN, ENVIRONMENTAL HEALTH NURSE-BC L97.522 L97.822 R60.0 M79.662 I87.2 Office Visit 03/03/2017 10:55a [facility] Blanca Castro DNP, [address] E11.621 AT [facility] RN, ENVIRONMENTAL HEALTH NURSE-BC L97.522 L97.822 R60.0 M79.662 Office Visit 06/30/2016 9:28a [facility] Keanu Astudillo 01649 L03.116 Infectious Diseases Keith Uribe Z96.652 Office Visit 06/30/2016 2:18p [facility] Alysha Boo, 66755 L03.116 [facility] Hospitalists Keith E11.621 R65.20 Office Visit 06/29/2016 9:16a [facility] Devin Astudillo 23763 L03.116 Infectious Diseases Keith Uribe Z96.652 I87.2 E11.40 Office Visit 06/28/2016 2:16p [facility] Sveta Scott, 52177 L03.116 [facility] Hospitalists MOLASSES PREPARER I83.12 I83.11 A41.9 Plan of Care Future Appointment(s):08/28/2018 10:15 am - Alejandra Castanon M.D. at [facility].08/17/2018 2:30 pm - Denis Bermudez PA-C at [facility]08/17/2018 2:30 pm - JOVANNI Camarillo at [facility]08/17/2018 2:30 pm - Alejandra Castanon M.D. at [facility]08/14/2018 - Alejandra Castanon M.D.M25.561 Pain in right kneeFollow up:Follow up: 10-14 days tzcakmL93.11 Unilateral primary osteoarthritis, right kneeM25.461 Effusion, right knee
--- OUTSIDE RECORDS SUMMARY | 2018-08-17 17:48 | XMS REPORT ---
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 Active Onset: 07/07/2009 Essential hypertension Romulo Arellano M.D. Active Onset: 05/26/2012 Adult health examination Valerie Og M.D. Active Onset: 05/26/2012 Hyperlipidemia Valerie Og M.D. Active Onset: 05/26/2012 Edema Valerie Og M.D. Active Onset: 05/26/2012 Obesity Valerie Og M.D. Active Onset: 05/26/2012 Gynecologic examination Valerie Og M.D. Active Onset: 05/26/2012 Varicose veins of lower extremity Valerie Og M.D. 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 Active ulcer Onset: 11/27/2015 Vitamin D deficiency Odalys Adames M.D. Active Onset: 11/27/2015 Carcinoma in situ of breast Odalys Adames M.D. Active Onset: 01/25/2013 Gastroesophageal reflux disease Odalys Adames M.D. Active Family History Date Family Member(s) Problem(s) Comments General Diabetes Mellitus, II mgm, cousins, sisters. Father Kidney Disease Father due to [place] () - age 72. Mother due to [place] () - age 72 First Son Diabetes Mellitus, II [place] Second Son Good Health Third Son Good Health Number of Siblings Siblings:6 sisters, and 1 brother. DM brother- mini strokes. 1 sister - breast bx. 1 sister - gastric bypass - resolved diabetes. First Sister Twin sister. DM, HTN. 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 Employment Currently working Cigarette Use Never Smoked Cigarettes ETOH Use Has consumed alcohol in the now none. past Smoking Patient has never smoked Daily Caffeine no soda Exercise Type/Frequency Does not exercise Current Allergies, Adverse Reactions, Alerts Date Description Reaction Status Severity Comments 08/20/2010 Latex active rash Medications Medication Date Status Form Strength Qnty SIG Indications Ordering Provider Cephalexin 07/28 Active Capsules 500mg 42cap 1 by L03.313 Odalys Susanne s mouth Zacarias, three M.D. times daily . Ketoconazole 02/16 Active Cream 2% 45gm apply B35.3 Odalys Parry thin Zacarias, layer M.D. twice a day to affected area. Triamcinolone 06/07 Active Cream 0.1% 15gm apply a L40.8 Odalys Parry Acetonide thin Zacarias, layer to M.D. affected area two times a day Tramadol HCL 03/29 Active Tablets 50mg 90tab take 1 E11.621 Odalys Parry s to 2 Zacarias, tablets M.D. by mouth every 4 to 6 hours as needed for left foot pain. Coated Baby 09/21 Active 81 1 by Odalys Parry Aspirin mouth Zacarias, daily. M.D. Handicap 09/21 Active severe M25.562 Odalys Parry Sticker. left Zacarias, Permanent. knee M.D. 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 Glucometer 08/25 Active 100un Test E11.9 Odalys Parry Strips its daily Zacarias, Contour Next M.D. Lancets 08/25 Active 100un test qd E11.9 Odalys Parry its Alan Adames. Lasix 05/06 Active Tablets 20mg 90tab Take 1 Janine Ann s tablet Baker, LAP MACHINE TENDER by mouth every day Vitamin C 05/26 Active Tablets 500mg 1 po qd [facility] Glucophage 06/20 Active Tablets 500mg 180ta Take 1 Janine Baptiste bs tablet Baker, LAP MACHINE TENDER by mouth twice a day Calcium/Vit Active Unknown D/Magnesium /0000 Potassium Active Tablets 99mg 1 po qd Unknown /0000 Silvadene 02/16 Hx Cream 1% 50uni apply to L02.612 Odalys Parry ts affected Zacarias, - area two M.D. 07/28 times day as needed Januvia 03/16 Hx Tablets 25mg 90tab 1 by E11.9 Odalys Parry /2015 s mouth Zacarias, - every M.D. Duoderm 03/16 Hx Gel 1Shee apply E11.621 Odalys Parry Hydroactive /2015 t weekly Zacarias, - to foot M.D. 04/06 ulcers. Lisinopril-[place] 11/27 Hx Tablets 20-12.5mg 90tab 1 by I10 Odalys Parry chlorothiazide /2014 s mouth Zacarias, - every M.D. Amoxicillin/Clav 03/06 Hx Tablets 875-125mg 20tab 1 po bid 682.6 Shawna ulanate /2013 s with Tiffany Potassium - food Afnp-C 03/16 Glucophage 01/25 Hx Tablets 500mg 270ta 1 po tid 250.00 Odalys Parry /2012 bs Zacarias, - M.D. 03/06 Out Of Work 05/06 Hx pt is to be vincenzo Lees, - excused M.D. 05/29 from work 05/06/11 until. 05/10/11 due to acute medical conditio n Betamethasone 03/05 Hx Cream 0.05% 30gm apply Macie Dipropionate bid as vincenzo Lees, - directed M.D. 08/25 Zinc Oxide 12/03 Hx Ointment 20% 60gm apply to open vincenzo Lees, - wound M.D. 05/26 after cleaning twice daily Nishant Stockings 08/27 Hx Light 1Pair dx: Macie Over The Knee Compression venous vincenzo Lees, - stasis M.D. 03/05 edema lifetime need Zinc Oxide 08/12 Hx Ointment 40% 60gm apply to macerate vincenzo Lees, - d areas M.D. 12/03 bid Keflex 08/12 Hx Capsules 500mg 20cap 1 po bid s vincenzo Lees, - M.D. 12/03 Out Of Work 08/12 Hx pt to be out of vincenzo Lees, - work M.D. 08/20 until 11 pm on 08/15 due to acute medical problem Trigosamine 05/26 Hx 1 po bid [facility] Augmentin 05/26 Hx Tablets 875-125mg 28tab 1 po bid Nikhil Warren M.D. 08/12 take with yogurt Compression 05/26 Hx 14mm HG 1Pair wear Macie Stockings during vincenzo Lees - the day M.DSusanne 03/05 dx: venous stasis edema Precision Xtra 10/14 Hx Strips 1Mont Use To h Test F/S vincenzo Lees - bid M.DSusanne 08/25 DX: NIDDM Arthrotec 75 09/11 Hx Tablets 60tab 1 po bid Nikhil Warren M.D. 05/26 Handicapped 08/02 Hx PT has [facility] Parking Permit severe Nihkil Rivas arthriti M.DSusanne 05/26 s in knee and requires [facility] parking permit Diclofenac 07/07 Hx Tablets 75mg 60tab 1 bid Romulo T. Sodium /2008 DR lynne yee/ Adan, - food for M.D. 08/29 pain Amlodipine 02/27 Hx Tablets 5mg 90tab 1 po qd Odalys Parry Besylate /2008 Nikhil Sanchez M.D. 08/25 Silvadene 02/27 Hx Cream 1% 50gm apply to Romulo T. /2008 affected Adan, - area qd M.DSusanne 05/26 Norvasc 11/26 Hx Tablets 10mg 30tab 1 po qd Macie /2008 Nikhil Warren M.D. 02/27 Lisinopril & 07/21 Hx Tablets 20mg;12.5 mg 90tab 1 po qd Odalys Parry HCTZ /2006 Nikhil Sanchez M.D. 01/05 Lisinopril/[place] 07/21 Hx Tablets 20-12.5mg 90tab take 1 Odalys L. chlorothiazide /2006 s tablet Zacarias - by mouth MJennifer 11/27 day Physical Therapy 03/24 Hx treatmen Macie t and vincenzo Lees - evaluvirginie Parker 05/30 on For Shoulder Pain Actos 11/16 Hx 30mg 30uni 1 qd Tiffany, - Afnp-C 10/24 Precision Extra 09/23 Hx 300un use as Macie Test its directed Nikhil Rivas M.D. 12/24 Zestril 11/14 Hx Tablets 5mg 30tab 1qd Richard Farah Nikhil Pena M.D. 06/20 Dyazide 07/23 Hx 37.5 30uni 1 PO qd marcella Allen, - Afnp-C 07/21 Vitamin D-3 Hx Tablets 5000Unit 1 by Unknown /0000 mouth - every Clindamycin HCL Hx Capsules 300mg 1 by Unknown /0000 mouth - three 02/03 times day Medications Administered in Office Medication Date Status Form Strength Qnty SIG Indications Ordering Provider Brief Administered Injection Odalys Parry Emotional/Beha 017 nikhil Adames M.D. W/ Scoring Doc Per Standard Inst Immunizations CPT Code Status Date Vaccine Lot # [id number] Given 07/28/2018 Tdap Tetanus, W Pertussis [id number] Given 09/21/2016 Pneumococcal Immunization [id number] Given 08/25/2015 Pneumococcal Conjugate Vacc-13 [id number] Vital Signs Date Vital Result Comment 07/28/2018 BP Systolic 130 mmHg BP Diastolic 82 mmHg Heart Rate 84 /min Body Temperature 98.8 F Respiratory Rate 16 /min Height 69 inches 5'9" Weight 220.00 lb BMI (Body Mass Index) 32.5 kg/m2 02/16/2018 BP Systolic 138 mmHg BP Diastolic 80 mmHg Heart Rate 68 /min Body Temperature 98.3 F Respiratory Rate 18 /min Height 69 inches 5'9" Weight 222.00 lb BMI (Body Mass Index) 32.8 kg/m2 10/14/2017 BP Systolic 142 mmHg BP Diastolic 80 mmHg Heart Rate 80 /min Body Temperature 98.1 F Respiratory Rate 18 /min Height 69 inches 5'9" Weight 239.00 lb BMI (Body Mass Index) 35.3 kg/m2 06/07/2017 BP Systolic 132 mmHg BP Diastolic 78 mmHg Heart Rate 72 /min Body Temperature 97.5 F Respiratory Rate 18 /min Height 69 inches 5'9" Weight 242.00 lb BMI (Body Mass Index) 35.7 kg/m2 03/29/2017 BP Systolic 128 mmHg BP Diastolic 80 mmHg Heart Rate 76 /min Body Temperature 98.6 F Respiratory Rate 18 /min Weight 242.00 lb 03/08/2017 BP Systolic 150 mmHg BP Diastolic 80 mmHg Heart Rate 76 /min Body Temperature 98.0 F Weight 244.00 lb 02/03/2017 BP Systolic 124 mmHg BP Diastolic 70 mmHg Heart Rate 76 /min Body Temperature 98.0 F Respiratory Rate 18 /min Weight 244.00 lb 09/21/2016 BP Systolic 120 mmHg BP Diastolic 80 mmHg Heart Rate 60 /min Body Temperature 98.0 F Respiratory Rate 18 /min Weight 238.00 lb 07/15/2016 BP Systolic 126 mmHg BP Diastolic 80 mmHg Heart Rate 76 /min Body Temperature 99.2 F Respiratory Rate 20 /min Height 69.5 inches 5'9.50" Weight 232.00 lb BMI (Body Mass Index) 33.8 kg/m2 05/18/2016 BP Systolic 142 mmHg BP Diastolic 70 mmHg Heart Rate 72 /min Body Temperature 98.1 F Height 69.5 inches 5'9.50" Weight 237.00 lb BMI (Body Mass Index) 34.5 kg/m2 04/06/2016 BP Systolic 150 mmHg BP Diastolic 80 mmHg Heart Rate 76 /min Body Temperature 98.7 F Respiratory Rate 16 /min Height 69.5 inches 5'9.50" Weight 242.00 lb BMI (Body Mass Index) 35.2 kg/m2 03/16/2016 BP Systolic 110 mmHg BP Diastolic 70 mmHg Heart Rate 72 /min Body Temperature 98.0 F Respiratory Rate 18 /min Height 69.5 inches 5'9.50" Weight 243.00 lb BMI (Body Mass Index) 35.4 kg/m2 11/27/2015 BP Systolic 162 mmHg BP Diastolic 72 mmHg BP Systolic Recheck 155 mmHg BP Diastolic Recheck 80 mmHg Heart Rate 80 /min Body Temperature 97.9 F Height 69.5 inches 5'9.50" Weight 238.38 lb BMI (Body Mass Index) 34.7 kg/m2 08/25/2015 BP Systolic 164 mmHg BP Diastolic 74 mmHg Heart Rate 72 /min Body Temperature 98.0 F Respiratory Rate 16 /min Weight 240.50 lb 03/08/2014 BP Systolic 150 mmHg BP Diastolic 72 mmHg Heart Rate 88 /min Body Temperature 98.5 F Respiratory Rate 18 /min Height 69.5 inches 5'9.50" Weight 251.00 lb BMI (Body Mass Index) 36.5 kg/m2 03/06/2014 BP Systolic 160 mmHg BP Diastolic 40 mmHg Heart Rate 88 /min Body Temperature 99.3 F Respiratory Rate 16 /min Height 69.5 inches 5'9.50" Weight 251.00 lb BMI (Body Mass Index) 36.5 kg/m2 01/25/2013 BP Systolic 130 mmHg BP Diastolic 70 mmHg Heart Rate 68 /min Body Temperature 98.4 F Respiratory Rate 16 /min Height 69.5 inches 5'9.50" Weight 232.00 lb BMI (Body Mass Index) 33.8 kg/m2 10/26/2012 BP Systolic 120 mmHg BP Diastolic 70 mmHg Heart Rate 72 /min Body Temperature 98.3 F Height 69.5 inches 5'9.50" Weight 236.00 lb BMI (Body Mass Index) 34.3 kg/m2 08/18/2012 BP Systolic 150 mmHg BP Diastolic 52 mmHg Heart Rate 102 /min Body Temperature 97.4 F Height 69.5 inches 5'9.50" Weight 246.00 lb BMI (Body Mass Index) 35.8 kg/m2 05/26/2012 BP Systolic 142 mmHg BP Diastolic 80 mmHg Heart Rate 72 /min Body Temperature 98.3 F Height 69.5 inches 5'9.50" Weight 256.00 lb BMI (Body Mass Index) 37.3 kg/m2 05/29/2011 BP Systolic 144 mmHg BP Diastolic 80 mmHg Heart Rate 76 /min Body Temperature 98.5 F Respiratory Rate 16 /min Height 69.5 inches 5'9.50" Weight 234.00 lb BMI (Body Mass Index) 34.1 kg/m2 05/10/2011 BP Systolic 160 mmHg BP Diastolic 70 mmHg Heart Rate 80 /min Body Temperature 99.2 F Respiratory Rate 16 /min Height 69.5 inches 5'9.50" Weight 238.00 lb BMI (Body Mass Index) 34.6 kg/m2 05/06/2011 BP Systolic 120 mmHg BP Diastolic 70 mmHg Heart Rate 80 /min Body Temperature 99.0 F Height 69.5 inches 5'9.50" Weight 239.00 lb BMI (Body Mass Index) 34.8 kg/m2 03/05/2011 BP Systolic 128 mmHg BP Diastolic 70 mmHg Heart Rate 76 /min Height 69.5 inches 5'9.50" Weight 249.00 lb BMI (Body Mass Index) 36.2 kg/m2 12/03/2010 BP Systolic 156 mmHg BP Diastolic 60 mmHg Heart Rate 80 /min Body Temperature 98.2 F Height 69.5 inches 5'9.50" Weight 245.00 lb BMI (Body Mass Index) 35.7 kg/m2 08/27/2010 BP Systolic 136 mmHg BP Diastolic 86 mmHg Heart Rate 78 /min Body Temperature 98.6 F Height 69.5 inches 5'9.50" Weight 249.00 lb BMI (Body Mass Index) 36.2 kg/m2 08/20/2010 BP Systolic 160 mmHg BP Diastolic 84 mmHg Heart Rate 78 /min Body Temperature 97.1 F Height 69.5 inches 5'9.50" Weight 249.00 lb BMI (Body Mass Index) 36.2 kg/m2 08/12/2010 BP Systolic 150 mmHg BP Diastolic 80 mmHg Heart Rate 88 /min Body Temperature 98.4 F Height 69.5 inches 5'9.50" Weight 246.00 lb BMI (Body Mass Index) 35.8 kg/m2 05/26/2010 BP Systolic 138 mmHg BP Diastolic 78 mmHg Heart Rate 88 /min Body Temperature 99.5 F Height 69.5 inches 5'9.50" Weight 244.00 lb BMI (Body Mass Index) 35.5 kg/m2 09/30/2009 BP Systolic 140 mmHg BP Diastolic 76 mmHg Heart Rate 88 /min Height 69.5 inches 5'9.50" Weight 241.00 lb BMI (Body Mass Index) 35.1 kg/m2 08/29/2009 BP Systolic 160 mmHg BP Diastolic 78 mmHg Heart Rate 72 /min Body Temperature 98.1 F Height 69.5 inches 5'9.50" Weight 249.00 lb BMI (Body Mass Index) 36.2 kg/m2 07/07/2009 BP Systolic 152 mmHg BP Diastolic 70 mmHg Heart Rate 88 /min Body Temperature 100.2 F Height 69.5 inches 5'9.50" Weight 264.00 lb BMI (Body Mass Index) 38.4 kg/m2 03/21/2009 BP Systolic 130 mmHg BP Diastolic 80 mmHg Heart Rate 80 /min Body Temperature 98.2 F Height 69.5 inches 5'9.50" Weight 263.00 lb BMI (Body Mass Index) 38.3 kg/m2 03/07/2009 BP Systolic 160 mmHg BP Diastolic 70 mmHg Heart Rate 72 /min Height 69.5 inches 5'9.50" Weight 262.00 lb BMI (Body Mass Index) 38.1 kg/m2 02/27/2009 BP Systolic 148 mmHg BP Diastolic 78 mmHg Heart Rate 72 /min Weight 260.00 lb 11/26/2008 BP Systolic 166 mmHg BP Diastolic 80 mmHg Heart Rate 80 /min Body Temperature 98.6 F Height 69.5 inches 5'9.50" Weight 257.00 lb BMI (Body Mass Index) 37.4 kg/m2 08/27/2008 BP Systolic 154 mmHg BP Diastolic 70 mmHg Heart Rate 78 /min Height 69.5 inches 5'9.50" Weight 261.00 lb BMI (Body Mass Index) 38.0 kg/m2 10/24/2007 BP Systolic 144 mmHg BP Diastolic 94 mmHg Heart Rate 72 /min Height 69.5 inches 5'9.50" Weight 274.00 lb BMI (Body Mass Index) 39.9 kg/m2 07/21/2007 BP Systolic 142 mmHg BP Diastolic 70 mmHg Heart Rate 72 /min Height 69.5 inches 5'9.50" Weight 272.00 lb BMI (Body Mass Index) 39.6 kg/m2 05/30/2007 BP Systolic 132 mmHg BP Diastolic 80 mmHg Heart Rate 74 /min Height 69.5 inches 5'9.50" Weight 274.00 lb BMI (Body Mass Index) 39.9 kg/m2 03/24/2006 BP Systolic 130 mmHg BP Diastolic 80 mmHg Heart Rate 66 /min Height 69.5 inches 5'9.50" Weight 252.00 lb BMI (Body Mass Index) 36.7 kg/m2 12/24/2005 BP Systolic 132 mmHg BP Diastolic 74 mmHg Heart Rate 72 /min Height 69.5 inches 5'9.50" Weight 262.00 lb BMI (Body Mass Index) 38.1 kg/m2 09/21/2005 BP Systolic 122 mmHg BP Diastolic 72 mmHg Heart Rate 72 /min Body Temperature 98.7 F Height 69.5 inches 5'9.50" Weight 260.00 lb BMI (Body Mass Index) 37.8 kg/m2 06/10/2005 BP Systolic 134 mmHg BP Diastolic 70 mmHg Heart Rate 76 /min Height 69.5 inches 5'9.50" Weight 259.00 lb BMI (Body Mass Index) 37.7 kg/m2 02/22/2005 BP Systolic 132 mmHg BP Diastolic 86 mmHg Heart Rate 76 /min Height 69.5 inches 5'9.50" Weight 256.00 lb BMI (Body Mass Index) 37.3 kg/m2 11/16/2004 BP Systolic 132 mmHg BP Diastolic 70 mmHg Heart Rate 80 /min Height 69.5 inches 5'9.50" Weight 250.00 lb BMI (Body Mass Index) 36.4 kg/m2 10/30/2004 BP Systolic 130 mmHg BP Diastolic 80 mmHg Heart Rate 76 /min Height 69.5 inches 5'9.50" Weight 250.00 lb BMI (Body Mass Index) 36.4 kg/m2 10/30/2004 Height 69.5 inches 5'9.50" 09/22/2004 BP Systolic 148 mmHg BP Diastolic 98 mmHg Body Temperature 98.4 F Height 69.5 inches 5'9.50" Weight 259.00 lb BMI (Body Mass Index) 37.7 kg/m2 08/25/2004 BP Systolic 132 mmHg BP Diastolic 80 mmHg Heart Rate 68 /min Height 69.5 inches 5'9.50" Weight 259.00 lb BMI (Body Mass Index) 37.7 kg/m2 08/18/2004 BP Systolic 140 mmHg BP Diastolic 86 mmHg Heart Rate 76 /min Body Temperature 97.9 F Height 69.5 inches 5'9.50" Weight 256.00 lb BMI (Body Mass Index) 37.3 kg/m2 07/24/2003 BP Systolic 112 mmHg BP Diastolic 66 mmHg Heart Rate 76 /min Height 69.5 inches 5'9.50" Weight 250.00 lb BMI (Body Mass Index) 36.4 kg/m2 03/20/2003 BP Systolic 140 mmHg BP Diastolic 72 mmHg Heart Rate 64 /min Height 69.5 inches 5'9.50" Weight 244.00 lb BMI (Body Mass Index) 36.0 kg/m2 08/22/2002 BP Systolic 130 mmHg LG Cuff BP Diastolic 84 mmHg LG Cuff Heart Rate 84 /min Height 69.5 inches 5'9.50" Weight 250.00 lb BMI (Body Mass Index) 36.9 kg/m2 06/20/2002 BP Systolic 150 mmHg LG Cuff BP Diastolic 84 mmHg LG Cuff Heart Rate 72 /min Height 69.5 inches 5'9.50" Weight 267.00 lb BMI (Body Mass Index) 39.4 kg/m2 12/02/2000 BP Systolic 140 mmHg BP Diastolic 82 mmHg Heart Rate 80 /min Height 69.5 inches 5'9.50" Weight 253.00 lb BMI (Body Mass Index) 37.4 kg/m2 11/14/2000 BP Systolic 160 mmHg BP Diastolic 82 mmHg Heart Rate 80 /min Height 69.5 inches 5'9.50" Weight 259.00 lb BMI (Body Mass Index) 38.2 kg/m2 12/18/1999 BP Systolic 130 mmHg LA LG Cuff BP Diastolic 84 mmHg LA LG Cuff Height 69.5 inches 5'9.50" Weight 254.00 lb BMI (Body Mass Index) 37.5 kg/m2 08/13/1999 BP Systolic 140 mmHg BP Diastolic 84 mmHg Height 69.5 inches 5'9.50" Weight 255.00 lb 07/23/1999 BP Systolic 140 mmHg LG Cuff BP Diastolic 90 mmHg LG Cuff Height 69.5 inches 5'9.50" Weight 254.50 lb 06/16/1999 BP Systolic 160 mmHg BP Diastolic 84 mmHg Weight 251.00 lb Results Test Date Test Result H/L Range Note Comprehensive Metabolic Prof 07/28/2018 Sodium 140 mEq/L 134-149 Potassium 4.0 mEq/L 3.6-5.5 Chloride 102 mEq/L 94-112 Carbon Dioxide 25 mEq/L 21-32 Glucose 154 mg/dL High 70-105 BUN 22 mg/dL 6-26 Creatinine 0.9 mg/dL 0.6-1.4 BUN/Creat Ratio 24.4 CALC 8.0-36.0 Calcium 9.1 mg/dL 8.6-10.2 Total Protein 6.8 g/dL 6.4-8.3 Albumin 4.3 g/dL 3.8-5.5 Globulin 2.5 g/dL 2.0-4.8 A/G Ratio 1.7 CALC 0.6-2.3 Alk. Phosphatase 59 U/L 30-110 Alt (SGPT) 9 U/L 7-35 Ast (Sgot) 14 U/L 5-34 Total Bilirubin 0.3 mg/dL 0.2-1.3 GFR Non- >60 ml/min/1.73m^ >=60 GFR >60 ml/min/1.73m^ >=60 CBC Electronic a 07/28/2018 WBC 8.6 x10^3/UL 4.0-10.0 RBC 4.76 x10^6/UL 3.93-6.00 HGB 12.2 g/dL 12.0-17.0 HCT 38 % 35-50 MCV 79.8 fL Low 80.0-95.0 MCH 25.6 pg 25.6-32.2 MCHC 32.1 g/dL Low 32.2-36.0 RDW-CV 15.8 % High 11.6-14.4 PLT 199 x10^3/UL 163-400 MPV 10.1 fL 9.4-12.4 Oh# 6.39 x10^3/UL High 1.56-6.13 Lymph# 1.00 x10^3/UL Low 1.18-3.74 Roseau# 0.74 x10^3/UL 0.24-0.82 Eos # 0.4 x10^3/UL 0.0-0.5 Baso # 0.08 x10^3/UL 0.01-0.08 Ho% 74.0 % High 34.0-70.0 Lymph % 11.6 % Low 20.0-52.0 [place]% 8.6 % 5.0-12.0 Eos% 4.8 % 0.7-7.0 Baso% 0.9 % 0.1-1.2 Laboratory test finding 07/28/2018 Hemoglobin A1c (Fma) 7.0 % % High 4.1- 5.7 Inr (Fma) 0.9 0.9-1.1 Ua - Micro (Fma) 07/28/2018 Appearance clear Color yellow Glucose, Urine (Fma/CMC/CTX) - Bilirubin - Ketones - SP Grav 1.015 Blood - PH 5.5 Protein - Urobil 0.2 Nitrite - Leukocytes (Fma/CMC/Centrex) small Hyaline 4-6 /Lpf Granular - /Lpf WBC (Fma,Centrex) 3-6 RBC 0-1 Mucus (Fma/CBC/Centrex) - /Lpf Epith - /Lpf Bacteria few /Hpf Amorphous (Fma/CMC/Centrex) trace /Lpf Crystals, Fluid (Fma/CMC/CTX) - Z#Comments - Urine Culture And 07/28/2018 Urine Culture SEE RESULT 1 Sensitivities BELOW Laboratory test 02/16/2018 Hemoglobin A1c 6.8 % High 4.1-5.7 finding (Fma) Laboratory test 02/13/2018 Point of Care 134 mg/dL High 70-100 2 finding Glucose Laboratory test 01/23/2018 Point of Care 133 mg/dL High 70-100 3 finding Glucose Laboratory test 11/22/2017 Wound Culture/Sensi SEE RESULT 4 finding BELOW Laboratory test 10/24/2017 Surgical Pathology SEE RESULT 5 finding BELOW Laboratory test 10/14/2017 Hemoglobin A1c 7.0 % High 4.1-5.7 finding (Fma) Laboratory test 09/25/2017 Apligraf SEE RESULTS 6, 7 finding BELO <SEE NOTE> Laboratory test 08/29/2017 Wound Culture/Sensi SEE RESULT 8 finding BELOW Laboratory test 08/14/2017 Apligraf SEE RESULTS 6, 9 finding BELO <SEE NOTE> Laboratory test 07/24/2017 Apligraf SEE RESULTS 6, 10 finding BELO <SEE NOTE> Laboratory test 06/26/2017 Apligraf SEE RESULTS 6, 11 finding BELO <SEE NOTE> Laboratory test 06/13/2017 Wound Culture/Sensi SEE RESULT 12, 13 finding BELOW Laboratory test 06/07/2017 Hemoglobin A1c 7.1 % High 4.1-5.7 finding (Fma) Laboratory test 06/05/2017 Apligraf SEE RESULTS 14, 15 finding BELO <SEE NOTE> Lipid Profile 05/30/2017 Cholesterol 177 mg/dL 120-200 Triglycerides 98 mg/dL 30-200 HDL Cholesterol 55 mg/dL 30-85 LDL (Calculated) 102 CALC 0-129 VLDL Cholesterol 20 mg/dL 0-50 HDL Risk Factor 3.2 CALC 0.0-4.4 Laboratory test finding 05/30/2017 TSH 1.14 mIU/L 0.50-6.00 Vitamin D25 44 30-100 Complete Blood Count 05/30/2017 WBC 6.3 x10^3/UL 3.6-9.6 RBC 4.41 x10^6/UL 3.90-5.70 HGB 11.9 g/dL Low 12.1-17.2 16 HCT 35 % Low 36-50 17 MCV 80.0 fL Low 82.2-97.4 MCH 27.1 pg Low 27.6-33.3 MCHC 33.8 g/dL 33.0-35.5 RDW 16.0 % High 11.6-13.7 PLT 203 x10^3/UL 150-400 MPV 7.3 fL Low 7.4-10.4 Gran # 4.6 x10^3/UL 1.5-7.2 Lymph# 1.1 x10^3/UL 0.7-4.9 [place]# 0.6 x10^3/UL 0.1-0.9 Gran % 71.2 % 42.2-75.2 Lymph % 18.1 % Low 20.5-51.1 [place]% 10.7 % High 1.7-9.3 Comprehensive Metabolic Prof 05/30/2017 Sodium 139 mEq/L 134-149 Potassium 4.4 mEq/L 3.6-5.5 Chloride 97 mEq/L 94-112 Carbon Dioxide 25 mEq/L 21-32 Glucose 127 mg/dL High 70-105 18 BUN 14 mg/dL 6-26 Creatinine 0.8 mg/dL 0.6-1.4 BUN/Creat Ratio 17.5 CALC 8.0-36.0 Calcium 8.8 mg/dL 8.6-10.2 Total Protein 6.1 g/dL Low 6.4-8.3 19 Albumin 4.0 g/dL 3.8-5.5 Globulin 2.1 g/dL 2.0-4.8 A/G Ratio 1.9 CALC 0.6-2.3 Alk. Phosphatase 56 U/L 30-110 Alt (SGPT) 11 U/L 7-35 Ast (Sgot) 13 U/L 5-34 Total Bilirubin 0.3 mg/dL 0.2-1.3 GFR Non- >60 ml/min/1.73m^ >=60 GFR >60 ml/min/1.73m^ >=60 Laboratory test 05/15/2017 Apligraf SEE RESULTS BELO 14, 20 finding <SEE NOTE> Laboratory test 04/11/2017 Wound Culture/Sensi SEE RESULT BELOW 21 finding Laboratory test 03/03/2017 Wound Culture/Sensi SEE RESULT BELOW 22, 23 finding Laboratory test 03/03/2017 Wound Culture/Sensi SEE RESULT BELOW 22, 24 finding Laboratory test 02/14/2017 Erythrocyte Sed Rate 32 mm/Hr 0-40 finding Prealbumin 23 mg/dL 18-38 C Reactive Protein 4.01 mg/L < 5.00 25 Vitamin B12 599 pg/mL 180-914 26 Vitamin D Total 25(Oh) 35.5 ng/mL 30-50 Laboratory test finding 02/03/2017 Hemoglobin A1c (Fma) 6.8 % High 4.1- 5.7 Laboratory test finding 09/21/2016 Hemoglobin A1c (Fma) 7.2 % High 4.1- 5.7 Comprehensive Metabolic Prof 03/16/2016 Sodium 137 mEq/L 134-149 Potassium 4.0 mEq/L 3.6-5.5 Chloride 99 mEq/L 94-112 Carbon Dioxide 26 mEq/L 21-32 Glucose 141 mg/dL High 70-105 27 BUN 20 mg/dL 6-26 Creatinine 0.8 mg/dL 0.6-1.4 BUN/Creat Ratio 25.0 CALC 8.0-36.0 Calcium 9.3 mg/dL 8.6-10.2 Total Protein 6.6 g/dL 6.4-8.3 Albumin 4.2 g/dL 3.8-5.5 Globulin 2.4 g/dL 2.0-4.8 A/G Ratio 1.8 CALC 0.6-2.3 Alk. Phosphatase 56 U/L 30-110 Alt (SGPT) 14 U/L 7-35 Ast (Sgot) 19 U/L 5-34 Total Bilirubin 0.4 mg/dL 0.2-1.3 GFR Non- >60 ml/min/1.73m^ >=60 GFR >60 ml/min/1.73m^ >=60 Laboratory test finding 03/16/2016 Hemoglobin A1c (Fma) 7.1 % % High 4.1- 5.7 Laboratory test finding 01/23/2016 Point of Care 192 mg/dL High 74-106 28 Glucose Laboratory test finding 11/27/2015 Hemoglobin A1c 7.2 % High 4.1-5.7 (Fma/CMC,CX) Laboratory test finding 10/06/2015 Surgical Pathology SEE RESULT 29 BELOW Laboratory test finding 09/04/2015 Microalb, Random 5.4 mg/L 0.5-37 (Fma/CMC/CTX) Comprehensive Metabolic 09/04/2015 Sodium 137 mEq/L 134-149 Prof Potassium 3.8 mEq/L 3.6-5.5 Chloride 98 mEq/L 94-112 Carbon Dioxide 27 mEq/L 21-32 Glucose 145 mg/dL High 70-105 30 BUN 23 mg/dL 6-26 Creatinine 0.9 mg/dL 0.6-1.4 BUN/Creat Ratio 25.6 CALC 8.0-36.0 Calcium 8.9 mg/dL 8.6-10.2 Total Protein 6.5 g/dL 6.4-8.3 Albumin 4.0 g/dL 3.8-5.5 Globulin 2.5 g/dL 2.0-4.8 A/G Ratio 1.6 CALC 0.6-2.3 Alk. Phosphatase 50 U/L 30-110 Alt (SGPT) 12 U/L 7-35 Ast (Sgot) 14 U/L 5-34 Total Bilirubin 0.5 mg/dL 0.2-1.3 GFR Non- >60 ml/min/1.73m^ >=60 GFR >60 ml/min/1.73m^ >=60 Lipid Profile 09/04/2015 Cholesterol 164 mg/dL 120-200 Triglycerides 61 mg/dL 30-200 HDL Cholesterol 62 mg/dL 30-85 LDL (Calculated) 90 CALC 0-129 VLDL Cholesterol 12 mg/dL 0-50 HDL Risk Factor 2.6 CALC 0.0-4.4 Laboratory test finding 09/04/2015 Vitamin D25 35 30-100 31 Complete Blood Count 09/04/2015 WBC 7.7 x10^3/UL 3.6-9.6 RBC 4.06 x10^6/UL 3.90-5.70 HGB 11.8 g/dL Low 12.1-17.2 32 HCT 36 % 36-50 MCV 88.0 fL 82.2-97.4 MCH 29.1 pg 27.6-33.3 MCHC 33.1 g/dL 33.0-35.5 RDW 15.5 % High 11.6-13.7 33 PLT 187 x10^3/UL 150-400 MPV 6.9 fL Low 7.4-10.4 34 Gran # 5.9 x10^3/UL 1.5-7.2 Lymph# 1.3 x10^3/UL 0.7-4.9 [place]# 0.5 x10^3/UL 0.1-0.9 Gran % 74.7 % 42.2-75.2 Lymph % 18.0 % Low 20.5-51.1 35 [place]% 7.3 % 1.7-9.3 Laboratory test finding 09/04/2015 TSH 0.84 mIU/L 0.50-6.00 Free T4 1.50 ng/dL 0.75-1.54 Wound Culture/Sensi 03/18/2014 Wound/Misc Culture-Gram (SEE NOTE) 36 Stain Wound Culture 03/06/2014 .Gram Stain Additional FEW GRAM NEG JESSICA 37 <SEE NOTE> Wound Culture Enterobacter marc <SEE NOTE> 38 Laboratory test finding 01/25/2013 Hemoglobin A1c (Fma/CMC,CX) 7.0% % High 4.1-5.7 Microalb, Random (Fma/CMC/CTX) <5.0mg/L mg/L 0.5-37 Laboratory test finding 01/25/2013 Free T4 0.88 ng/dL 0.75-1.54 TSH 0.17 mIU/L Low 0.50-6.00 39 Thyroglobulin AB Screen 01/25/2013 Thyroglobulin Antibody <20 IU/mL <22 40 Thyroglobulin Tumor Marker 140 ng/mL 41 Laboratory test finding 01/25/2013 Thyroid Peroxidase 0.8 IU/mL Less Than 9.0 42 Antibodies Basic Metabolic Profile 10/26/2012 BUN 23 mg/dL 6-26 Calcium 9.6 mg/dL 8.6-10.2 Chloride 99 mEq/L 94-112 Creatinine 1.0 mg/dL 0.6-1.4 Carbon Dioxide 25 mEq/L 21-32 Glucose 123 mg/dL High 70-105 Sodium 137 mEq/L 134-149 Potassium 4.3 mEq/L 3.6-5.5 BUN/Creat Ratio 23.5 Calc 8.0-36.0 Laboratory test finding 10/26/2012 Creatine Kinase 57 U/L 26-140 TSH < 0.01 mIU/L Low 0.50-6.00 Laboratory test 10/26/2012 Hemoglobin A1c 7.2 % High 4.1-5.7 finding (Fma/[facility],CX) Laboratory test 05/26/2012 Urine Culture No significant g 43 finding <SEE NOTE> Ua - Micro (a) 05/26/2012 Appearance CLEAR Color YELLOW Glucose NEG Bilirubin NEG Ketones NEG SP Grav 1.015 Blood TRACE-INTACT PH 5.5 Protein NEG Urobil 0.2 Nitrite NEG Leukocytes (Fma/CMC/[facility]) MOD WBC (a,[facility]rex) 10-12 RBC 0-1 Epith OCC /Lpf Bacteria TRACE /Hpf Laboratory test 05/26/2012 Thin Prep SEE NOTE 44 finding W/HPV(Lsil/MITZY/Asc) Comprehensive 02/21/2012 Albumin 4.6 g/dL 3.8-5.5 Metabolic Prof Alk. Phos. 61 U/L 30-110 Alt (SGPT) 14 U/L 7-35 Ast (Sgot) 15 U/L 5-34 BUN 23 mg/dL 6-26 Calcium 9.0 mg/dL 8.6-10.2 Chloride 94 mEq/L 94-112 Creatinine 0.9 mg/dL 0.6-1.4 Carbon Dioxide 28 mEq/L 21-32 Glucose 134 mg/dL High 70-105 45 Sodium 136 mEq/L 134-149 Total Bilirubin 0.7 mg/dL 0.2-1.3 Total Protein 6.6 g/dL 6.3-8.1 Potassium 3.8 mEq/L 3.6-5.5 Globulin 2.1 g/dL 2.0-4.8 A/G Ratio 2.2 Calc 0.6-2.2 BUN/Creat Ratio 27.0 Calc 8.0-36.0 Lipid Profile 02/21/2012 Cholesterol 165 mg/dL 120-200 HDL 58 mg/dL 30-85 Triglycerides 74 mg/dL 30-200 HDL Risk Factor 2.8 CALC 0.0-4.0 LDL (Calculated) 92 CALC 0-129 VLDL (Calculated) 15 mg/dL 0-50 Laboratory test finding 02/21/2012 Hemoglobin A1c 7.2 % High 4.1-5.7 (a/CMC,CX) Laboratory test finding 03/05/2011 Hemoglobin A1c 7.1 % High 4.1-5.7 (Fma/[facility],CX) Laboratory test finding 12/03/2010 Hemoglobin A1c 7.4 % High 4.1-5.7 ([facility],CX) Comprehensive Metabolic 08/27/2010 Albumin 4.5 g/dL 3.8-5.5 Prof Alk. Phos. 60 U/L 30-110 Alt (SGPT) 10 U/L 7-35 Ast (Sgot) 14 U/L 5-34 BUN 11 mg/dL 6-26 Calcium 9.0 mg/dL 8.6-10.2 Chloride 98 mEq/L 94-112 Creatinine 0.7 mg/dL 0.6-1.4 Carbon Dioxide 27 mEq/L 21-32 Glucose 137 mg/dL High 70-105 Sodium 136 mEq/L 134-149 Total Bilirubin 0.6 mg/dL 0.2-1.3 Total Protein 6.5 g/dL 6.3-8.1 Potassium 3.7 mEq/L 3.6-5.5 Globulin 2.0 g/dL 2.0-4.8 A/G Ratio 2.2 Calc 0.6-2.2 BUN/Creat Ratio 14.9 Calc 8.0-36.0 Lipid Profile 08/27/2010 Cholesterol 161 mg/dL 120-200 HDL 55 mg/dL 30-85 Triglycerides 63 mg/dL 30-200 HDL Risk Factor 2.9 CALC Low 4.2-7.0 LDL (Calculated) 93 CALC 0-129 VLDL (Calculated) 13 mg/dL 0-50 Laboratory test finding 08/27/2010 TSH 0.51 mIU/L 0.50-6.00 Laboratory test finding 08/27/2010 Hemoglobin A1c 7.1 % High 4.1-5.7 ([facility],CX) CBC ([facility]) 08/27/2010 WBC 7.2 3.6-9.6 RBC 4.30 3.90-5.70 Hemoglobin ([facility]/CMC/CTX) 12.1 g/dL 12.1 - 17.2 Hematocrit (a/CMC/CTX) 35.5 % Low 36.1 - 50.3 Mean Corpuscular Vol 83 82.2-97.4 Mean Corpuscular Hemaglobin 28.2 27.6-33.3 Mean Corpuscular Hemo Concen 34.1 33.0-36.0 Platelets 192 10^3/ul 150-400 Lymph% 11.9 Low 20.5-51.1 Mixed% 4.1 Neutrophils % 84.0 RDW 13.5 11.6-13.7 Mean Platelet Volume 6.8 Low 7.4-10.4 Laboratory test finding 05/26/2010 Hemoglobin A1c 7.4 % High 4.1-5.7 ([facility],CX) Laboratory test finding 08/29/2009 Hemoglobin A1c 7.5 % High 4.1-5.7 ([facility],CX) Laboratory test finding 02/27/2009 Hemoglobin A1c 7.2% % High 4.1-5.7 ([facility],CX) Laboratory test finding 11/26/2008 Hemoglobin A1c 7.4% % High 4.1-5.7 ([facility],CX) Laboratory test finding 08/27/2008 Hemoglobin A1c 7.0 % High 4.1-5.7 ([facility],CX) Laboratory test finding 10/24/2007 Hemoglobin A1c 6.9 % High 4.1-5.7 ([facility]/CTX) Hemogram 07/04/2007 White Blood Count 5.9 CUMM 4.8-10.8 46 Hematocrit 38 % 35-47 46 Hemoglobin 12.8 g/dL 12.0-16.0 46 Mean Corpuscular HGB Cone 34 g/dL 32-36 46 Mean Corpuscular Hemoglob 30 pg 27-31 46 Mean Corpuscular Volume 87 um3 79-97 46 Platelet Count 191 CUMM 150-450 46 Red Cell Count 4.36 CUMM 4.2-5.4 46 Stool For Blood 07/04/2007 Stool For Blood NEGATIVE Negative 46 Urinalysis W/Microscopic 07/04/2007 Ua Color STRAW 46 Appearance-Urine CLEAR 46 Bacteria-Urine TRACE 46 Bilirubin-Ur NEGATIVE Negative 46 Blood-Urine TRACE Negative 46 Epith Cells-Ur FEW 46 Esterase-Urine 1+ Negative 46 Glucose-Urine NEGATIVE Negative 46 Ketones-Urine NEGATIVE Negative 46 Nitrite NEGATIVE Negative 46 PH-Urine 6.0 5-9 46 Protein-Urine NEGATIVE Negative 46 RBC-Urine 0-2 0-2 46 Anuktqfhrjja-Ep-STF NEGATIVE Negative 46 Specific [place]-Ur 1.003 Low 1.010-1.030 46 WBC-Urine 3-5 0-5 46 Op Profile W/HDL & LDL 07/04/2007 Anion Gap 8.0 mmol/L 2-11 46, 47 Albumin/Globulin Ratio 1.5 1-3 46 Albumin 3.7 GM/DL 3.2-5.2 46 Alkaline Phosphatase 48 U/L 30-110 46 Alt (SGPT) 19 U/L 14-54 46 Ast (Sgot) 21 U/L 12-42 46 BUN 13 mg/dL 6-24 46 Cholesterol/HDL Ratio 3.23 AVERAGE 1-4.44 46 Calcium 8.6 mg/dL Low 8.7-10.2 46 Cholesterol 181 mg/dL Less Than 200 46, 48 Chloride 100 mmol/L Low 101-111 46 Co2 (Carbon Dioxide) 28.0 mmol/L 22-32 46 LDL Direct 95 mg/dL Less Than 100 46, 49 Iron Total 72 g/dL 28-170 46 Globulin 2.4 GM/DL 2-4 46 Glucose 123 mg/dL High 70-105 46 Potassium 3.6 mmol/L 3.5-5.0 46 LDH 191 U/L High 95-185 46 Sodium 136 mmol/L 135-145 46 Phosphorus 4.5 mg/dL 2.4-4.7 46 Bilirubin Total 0.9 mg/dL 0.4-1.5 46 Total Protein 6.1 GM/DL Low 6.2-8.1 46 Triglyceride 68 mg/dL 40-200 46 Uric Acid 5.6 mg/dL 2.6-7.2 46 BUN/Creatinine Ratio 14.4 8-20 46 High Density Lipoprotein 56 mg/dL 40-60 46 Creatinine 0.9 mg/dL 0.5-1.4 46 Laboratory test finding 07/04/2007 TSH 0.91 MIU/ML 0.34-5.60 46 Urine Culture Sensitivi SCANT NORMAL URE <SEE NOTE> 46, 50 Laboratory test finding 05/30/2007 Hemoglobin A1c (Fma/CMC/CTX) 6.6 % High 4.1-5.7 Glucose, Serum (Fma/CMC/CTX) 144 mg/dL High 70-105 Laboratory test 06/17/2006 [facility] Labs LYTES;GLU;BUN;CREA; See Image finding Report Laboratory test 03/24/2006 Hemoglobin A1c 6.6 % High 4.1-5.7 finding (Fma/CMC/CTX) Laboratory test 12/24/2005 Hemoglobin A1c 7.3 % High 4.1-5.7 finding (F/C/CTX) Lipid Profile 12/24/2005 Cholesterol 191 mg/dL 120-200 ([facility]) Female Triglyceride 73 mg/dL 30-200 HDL-Chol 53 mg/dL 30-85 LDL, Calculated ([facility]) 123 CALC 0-129 LDL Direct ([facility]) - mg/dL 0-130 VLDL 15 0-50 HDL Risk Factor ([facility]) 3.6 CALC Low 4.2-7.0 CBC Electronic ([facility]) 12/24/2005 WBC 7.3 3.6-9.6 Lymphocytes 19.4 % Low 20.5 - 51.1 Monocytes 5.0 % 1.7-9.3 Granulocytes 75.6 % High 42.2 - 75.2 Lymphocytes 1.4 10^3/uL 0.7 - 4.9 Monocytes 0.4 10^3/uL 0.1 - 0.9 Granulocytes 5.5 10^3/uL 1.5 - 7.2 RBC 4.75 3.90-5.70 Hemoglobin ([facility]/CTX) 13.6 g/dL 12.1 - 17.2 Hematocrit ([facility]/CTX) 39.7 % 36.1 - 50.3 Mean Corpuscular Vol 83.6 82.2-97.4 Mean Corpuscular Hemaglobin 28.5 27.6-33.3 Mean Corpuscular Hemo Concen 34.1 33.0-36.0 RDW 14.4 High 11.6-13.7 Platelets 235. 10^3/ul 150-400 Mean Platelet Volume 8.6 7.4-10.4 Comp Metabolic ([facility]) 12/24/2005 Glucose, Serum 141 mg/dL High 70-105 Female ([facility]/CTX) BUN ([facility]) 15 mg/dL 6-26 Creatinine, Serum 0.9 mg/dL 0.6-1.4 BUN/Creatinin Ratio 16.6 8.0-36 Sodium 138 134-149 Potassium 3.6 3.6-5.5 Chloride 99 mEq/L 94-112 Co2 28 21-32 Calcium ([facility]) 9.4 mg/dL 8.6-10.2 Total Protein 7.0 g/dL 6.3-8.1 Albumin ([facility]) 4.2 3.8-5.5 Globulin 2.8 2.0-4.8 A/G Ratio (A/G Ratio) 1.5 0.6-2.2 Alkaline Phosphatase (F/C/CTX) 68 U/L 30-110 Alt (SGPT) Female (a) 15 7-35 Ast Sgot 11 U/L 5-34 Bilirubin, Total 0.9 mg/dL 0.2-1.3 Laboratory test finding 09/21/2005 Hemoglobin A1c (F/C/CTX) 7.0 % High 4.1 -5.7 Lipid Profile ([facility]) 06/10/2005 Cholesterol 182 mg/dL 120-200 Female Triglyceride 207 mg/dL High 30-200 HDL-Chol 52 mg/dL 30-85 LDL, Calculated ([facility]) 89 CALC 0-129 LDL, Direct - mg/dL 0-130 VLDL 41 0-50 HDL Risk Factor ([facility]) 3.5 CALC Low 4.2-7.0 Laboratory test finding 06/10/2005 Hemoglobin A1c (F/C/CTX) 7.0 % High 4.1 -5.7 Comp Metabolic ([facility]) 06/10/2005 Glucose, Serum 143 mg/dL High 70-105 Female ([facility]/CTX) BUN ([facility]) 16 mg/dL 6-26 Creatinine, Serum 0.9 mg/dL 0.6-1.4 BUN/Creatinin Ratio 17.4 8.0-36 Sodium 141 134-149 Potassium 3.7 3.6-5.5 Chloride 97 mEq/L 94-112 Co2 28 21-32 Calcium ([facility]) 10.1 mg/dL 8.6-10.2 Total Protein 6.9 g/dL 6.3-8.1 Albumin ([facility]) 4.3 3.8-5.5 Globulin 2.6 2.0-4.8 A/G Ratio (A/G Ratio) 1.7 0.6-2.2 Alkaline Phosphatase (F/C/CTX) 62 U/L 22-95 Alt (SGPT) ([facility]) 13 7-35 Ast (Sgot) ([facility]) 14 U/mL 5-34 Bilirubin, Total 0.8 mg/dL 0.2-1.3 Laboratory test finding 02/22/2005 Hemoglobin A1c (F/C/CTX) 6.8 % High 4.1 -5.7 Ua - Micro ([facility]) 11/16/2004 Appearance CLEAR Color LT YELLOW Glucose NEG Bilirubin NEG Ketones NEG SP Grav 1.010 Blood TRACE-LYSED PH 7.0 Protein NEG Urobil 0.2 Nitrite NEG Leukocytes MODERATE Hyaline - /Lpf Granular - /Lpf WBC'S 30-40 RBC'S 0-1 Mucus SM AMT /Lpf Epith FEW Bacteria TR Amorphous - /Lpf Crystals - /Lpf Comments - Laboratory test finding 11/16/2004 Pap,TP W/HPV see image Laboratory test finding 10/30/2004 Hemoglobin A1c 7.0 % High 4.1-5.7 (Fma/CMC/CTX) CBC Electronic ([facility]) 10/30/2004 WBC 8.5 3.6-9.6 Lymphocytes 25.1 % 20.5 - 51.1 Monocytes 3.7 % 1.7-9.3 Granulocytes 71.2 % 42.2 - 75.2 Lymphocytes 2.1 10^3/uL 0.7 - 4.9 Monocytes 0.3 10^3/uL 0.1 - 0.9 Granulocytes 6.1 10^3/uL 1.5 - 7.2 RBC 5.15 3.90-5.70 Hemoglobin (Fma/CMC/CTX) 15.0 g/dL 12.1 - 17.2 Hematocrit (Fma/CMC/CTX) 44.3 % 36.1 - 50.3 Mean Corpuscular Vol 85.9 82.2-97.4 Mean Corpuscular Hemaglobin 29.1 27.6-33.3 Mean Corpuscular Hemo Concen 33.9 33.0-35.5 RDW 14.2 High 11.6-13.7 Platelets 200. 10^3/ul 150-400 Mean Platelet Volume 7.8 7.4-10.4 Comp Metabolic ([facility]) 10/30/2004 Glucose, Serum 126 mg/dL High 70-118 Female (Fma/CMC/CTX) BUN (a/CMC/[facility]) 14 mg/dL 6-26 Creatinine, Serum 1.0 mg/dL 0.6-1.4 BUN/Creatinin Ratio 14.8 8.0-36 Sodium 142 134-149 Potassium 3.7 3.6-5.5 Chloride 95 mEq/L 94-112 Co2 30 21-32 Calcium (Fma/CMC/[facility]) 9.1 mg/dL 8.6-10.2 Total Protein 7.2 g/dL 6.3-8.1 Albumin (Fma/CMC/[facility]) 4.5 3.8-5.5 Globulin 2.7 2.0-4.8 A/G Ratio ([facility]rex) 1.7 0.6-2.2 Alkaline Phosphatase (F/C/CTX) 64 U/L 30-110 Alt (SGPT) (Fma/CMC/[facility]) 13 7-35 Ast (Sgot) (a/CMC/[facility]rex) 15 U/mL 5-34 Bilirubin, Total 0.7 mg/dL 0.2-1.3 Lipid Profile ([facility]) 10/30/2004 Cholesterol (a/CMC/[facility]rex) 173 mg/dL 120-200 Female Triglyceride 92 mg/dL 30-200 HDL-Chol 48 mg/dL 30-85 LDL, Calculated ([facility]) 107 CALC 0-129 LDL, Direct (a/CMC) - mg/dL 0-130 VLDL 18 0-50 HDL Risk Factor ([facility]) 3.6 CALC Low 4.2-7.0 Laboratory test finding 08/18/2004 Hemoglobin A1c (F/C/CTX) 7.4 % High 4.1 -5.7 Laboratory test finding 08/07/2004 TSH (a/CMC/[facility]) 0.82 0.34-5.60 Hemogram ([facility]) 08/07/2004 WBC 8.2 CUMM 4.8-10.8 RBC 4.84 CUMM 4.2-5.4 Hemoglobin (a/CMC/CTX) 14.2 g/dL 12.0-16.0 Hematocrit (a/CMC/CTX) 42 % 35-47 Mean Corpuscular Vol 87 UM3 79-97 Mean Corpuscular Hemaglobin 29 pg 27-31 Mean Corpuscular Hemo Concen 34 g/dL 32-36 Platelets 176 CUMM 150-450 Ua - Micro ([facility]) 08/07/2004 Color YELLOW Appearance CLEAR SP Grav 1.010 1.010-1.030 Esterase 2+ High Negative Nitrite NEG Negative Urobil NEG Negative Protein NEG Negative PH 6.0 5-9 Blood 1+ High Negative Ketones NEG Negative Bilirubin, Micro NEG Negative Glucose NEG Negative WBC'S 2-6 0-5 RBC'S - 0-2 Epith FEW Bacteria - Laboratory test finding 08/07/2004 Amorphous 1+ Stool For Blood NEGATIVE Negative Laboratory test finding 08/07/2004 Misc C&S LLE ULCER-NO GROWTH Final Op Profile W/ HDL+LDL (CMC) 08/07/2004 Sodium 136 mmol/L 135-145 Potassium 4.0 mmol/L 3.5-5.0 Chloride 98 mmol/L Low 101-111 Co2 29.0 mmol/L 22-32 Anion Gap 9.0 mmol/L 2-11 Glucose, Serum (Fma/CMC/CTX) 137 mg/dL High 70-105 BUN (Fma/CMC/[facility]) 15 mg/dL 6-24 Creatinine, Serum 1.0 BUN/Creatinin Ratio 15.0 8-20 Uric Acid (Fma/CMC/[facility]) 6.8 mg/dL 2.4-7.0 Calcium (Fma/[facility]) 9.4 mg/dL 8.7-10.2 Phosphorus 4.1 mg/dL 2.4-4.7 Total Protein 6.3 GM/DL 6.2-8.1 Albumin (Fma/[facility]) 4.1 3.6-5.4 Globulin 2.2 2-4 A/G Ratio (Fma/CMC/[facility]) 1.9 1-3 Bilirubin, Total 1.0 mg/dL 0.4-1.5 Triglyceride 81 mg/dL 40-200 Cholesterol (Fma/[facility]) 166 mg/dL <200 HDL-Chol 50 40-60 Cholesterol / HDL Ratio 3.32 AVG 1-4.44 LDL, Direct (Fma/CMC) 97 mg/dL <100 Alkaline Phosphatase (F/C/CTX) 55 U/L 30-110 Alt (SGPT) (Fma/CMC/[facility]) 21 14-54 Ast (Sgot) (Fma/CMC/[facility]) 19 12-42 LDH 172 95-185 Iron, Total (Fma/CMC/[facility]) 67 g/dL 28-170 Laboratory test finding 07/24/2003 Hemoglobin A1c (F/C/CTX) 7.2 % High 4.1 -5.7 Laboratory test finding 03/20/2003 Hemoglobin A1c (F/C/CTX) 7.1 % High 4.1 -5.7 Basic Metabolic ([facility]) 03/20/2003 Glucose, Serum 140 mg/dL High 70-118 (Fma/CMC/CTX) BUN (Fma/CMC/[facility]rex) 18 mg/dL 7-26 Creatinine (Fma/CMC/CTX) 0.8 mg/dL 0.6-1.4 BUN/Creatinin Ratio 22.7 8.0-36 Sodium 139 134-149 Potassium 3.8 3.6-5.5 Chloride 97 mEq/L 94-112 Co2 26 21-32 Calcium (Fma/[facility]) 9.7 mg/dL 8.6-10.0 Laboratory test finding 03/20/2003 TSH 1.05 uIU/ml 0.5-6.0 Laboratory test finding 08/22/2002 Glucose 136 mg/dL High 70 - 118 Hemoglobin A1c 7.5 % High 4.1-5.7 Comp Metabolic ([facility]) 06/25/2002 Albumin 4.7 3.8-5.5 Alkaline Phosphatase 62 U/L 36-117 Bilirubin, Total 0.8 mg/dL 0.2-1.3 BUN 19 7-26 Calcium 9.1 mg/dL 8.6-10.0 Creatinine 0.9 mg/dL 0.6-1.4 Glucose 142 mg/dL High 70 - 118 Ast Sgot 24 U/L 5-40 Alt (SGPT) 25 10-40 Total Protein 7.2 g/dL 6.4-8.3 Sodium 141 134-149 Potassium 4.1 3.6-5.5 Chloride 102 mEq/L 94-112 Co2 28 21-32 Globulin 2.5 2.0-4.8 Albumin / Globulin Ratio 1.9 0.6-2.2 BUN/Creatinin Ratio 21.1 8.0-36 Lipid Profile ([facility]) 06/25/2002 Cholesterol 174 mg/dL 140-200 Triglyceride 100 mg/dL 30-150 VLDL 20 0-50 LDL-Calculated 101 0-160 HDL-Chol 53 35-85 CBC With Diff ([facility]) 06/25/2002 WBC 8.3 3.6-9.6 Lymphocytes 18.5 % Low 20.5 - 51.1 Monocytes 8.3 % 1.7-9.3 Granulocytes 73.2 % 42.2 - 75.2 Lymphocytes 1.5 10^3/uL 0.7 - 4.9 Monocytes 0.7 10^3/uL 0.1 - 0.9 Granulocytes 6.1 10^3/uL 1.5 - 7.2 RBC 4.80 3.90-5.70 Hemoglobin 14.3 g/dL 12.1 - 17.2 Hematocrit 41.1 % 36.1 - 50.3 Mean Corpuscular Vol 85.5 82.2-97.4 Mean Corpuscular Hemaglobin 29.8 27.6-33.3 Mean Corpuscular Hemo Concen 34.9 High 33.0-34.8 RDW 14.9 High 11.6-13.7 Platelets 207. 10^3/ul 150-400 Mean Platelet Volume 8.0 7.4-10.4 Laboratory test finding 06/20/2002 Glucose 129 mg/dL High 70 - 118 Hemoglobin A1c 7.6 % High 4.1-5.7 Laboratory test finding 12/02/2000 Glucose 130 mg/dL High 70 - 118 Hemoglobin A1c 7.3 % High 4.1-5.7 Laboratory test finding 11/14/2000 Glucose 164 mg/dL High 70 - 118 Op Profile W/ HDL+LDL 10/07/2000 Sodium 148 mmol/L High 135-145 Potassium 3.8 3.5-5.0 Chloride 102 mmol/L 95-108 Co2 25.5 21-33 Glucose 146 mg/dL High 70-105 BUN 12 6-22 Creatinine 0.8 mg/dL 0.5-1.4 BUN/Creatinin Ratio 15.0 8-20 Uric Acid 7.0 mg/dL 2.4-7.0 Calcium 9.4 mg/dL 8.7-10.2 Phosphorus 4.3 mg/dL 2.7-4.5 Total Protein 7.1 GM/DL 6.2-8.1 Albumin 4.2 3.6-5.4 Globulin 2.9 2-4 Albumin / Globulin Ratio 1.4 1-3 Bilirubin, Total 0.6 mg/dL 0.1-1.0 Triglyceride 84 mg/dL 40-200 Cholesterol 160 mg/dL 100-200 HDL-Chol 51 35-60 Cholesterol / HDL Ratio 3.14 AVG 1-4.44 LDL, Direct 97 mg/dL <130 Alkaline Phosphatase 68 U/L 30-110 Alt (SGPT) 28 1-40 Ast (Sgot) 26 1-34 LDH 195 118-242 Iron, Total 83 g/dL 30-160 Laboratory test finding 10/07/2000 TSH 0.6 0.3-4.5 Hemogram 10/07/2000 WBC 8.8 4.8-10.8 RBC 4.83 4.2-5.4 Hemoglobin 14.2 g/dL 12.0-16.0 Hematocrit 42 % 35-47 Mean Corpuscular Vol 88 79-97 Mean Corpuscular Hemaglobin 28 27-31 Mean Corpuscular Hemo Concen 34 32-36 Platelets 222 CUMM 150-450 Ua - Micro ([facility]) 10/07/2000 Color YELLOW Appearance HAZY SP Grav 1.010 1.010-1.030 Esterase 1+ High Negative Nitrite NEGATIVE Negative Urobil NEGATIVE Negative Protein NEGATIVE Negative PH 6.0 5-9 Blood TRACE High Negative Ketones NEGATIVE Negative Bilirubin, Micro NEGATIVE Negative Glucose NEGATIVE Negative WBC'S 5-10 RBC'S - Epith FEW Bacteria TRACE Laboratory test finding 10/07/2000 Amorphous SMALL Stool For Blood NEGATIVE Negative Ua - Non Micro ([facility]) 08/14/1999 Appearance CLEAR YELLOW SP Grav 1.010 Esterase NEGATIVE Nitrite NEGATIVE pH 7.0 Protein NEGATIVE Glucose NEGATIVE Ketones NEGATIVE Urobil NEGATIVE Bilirubin NEGATIVE Blood NEGATIVE 1 SEE RESULT BELOW Name: ASHIA HERRERA : [address]: Odalys Adames MD Acct: [id number] Unit: [id number] AGE: 73 Location: [facility] Re07/28/18 SEX: F Status: REG REF SPEC: [id number] [place]KE: 07/28/18-1439 [facility] DR: Odalys Adames MD REQ: [id number] RECD: 07/28/18 STATUS: COMP _ SOURCE: URINE SPDESC: ORDERED: Urine Culture COMMENTS: 1URINE VACUTAINER Urine Source: Random Procedure Result Reported Site Urine Culture Final 07/29/18- 1245 ML Mixed nneka; possible contamination. Suggest resubmission. * ML - Main Lab . END OF REPORT DEPARTMENT OF PATHOLOGY, [address] [place] [address] Richard Browning M.D. Director [facility] # [id number] 2 [place] Tender: [id number] 3 [place] Tender: [id number] 4 SEE RESULT BELOW Name: ASHIA HERRERA : [address]: Ashlee Arvizu MD Acct: [id number] Unit: [id number] AGE: 72 Location: WOUND Re11/22/17 SEX: F Status: REG REF SPEC: [id number] LUKE: 11/22/17-1155 [facility] DR: Ashlee Arvizu MD REQ: [id number] RECD: 11/22/17-1550 STATUS: RES OTHR DR: Odalys Adames MD _ SOURCE: FOOT,LEFT SPDESC: ORDERED: Culture Stain Procedure Result Reported Site Wound/Misc Gram Stain Final 11/23/17- 0814 ML 3+ Epithelial Cells 1+ Neutrophils 3+ Gram Positive Cocci in Clusters, resembling Staph Possible 1+ Gram Negative Bacilli Wound/Misc Culture Preliminary 11/25/17- 1238 ML Organism 1 ENTEROCOCCUS FAECALIS Quantity 3+ Organism 2 PSEUDOMONAS AERUGINOSA Quantity 1+ Organism 3 PROPIONBACTERIUM SPECIES Quantity 2+ 1. ENTEROCOCCUS FAECALIS M.I.C. RX --------- ------ Ampicillin <=2 S Penicillin 2 S Ciprofloxacin 1 S Erythromycin >=8 R Gentamicin High Level R Levofloxacin 0.5 S Linezolid 1 S Nitrofurantoin <=16 S * Quinupristin/Dalfopristin R * Streptomycin High Level R Tetracycline >=16 R CONTINUED ON NEXT PAGE * ML=Testing performed at Main Lab DEPARTMENT OF PATHOLOGY, [address] [place] [address] Richard Browning M.D. Director [facility] # [id number] Patient: ASHIA HERRERA [id number] (Continued) Specimen: [id number] Collected: 11/22/17-1155 Received: 11/22/17997 (Continued) Procedure Result Reported Site Wound/Misc Culture Preliminary (continued) 11/25/17- 1238 1. ENTEROCOCCUS FAECALIS (continued) M.I.C. RX --------- ------ Tigecycline <=0.12 S Vancomycin 1 S Imipenem-Deduced S * Ampicillin/Sulbactam-Deduced S 2. PSEUDOMONAS AERUGINOSA M.I.C. RX --------- ------ Ampicillin >=32 R Cefazolin >=64 R Cefepime 4 S Ceftriaxone R Ciprofloxacin 2 I Gentamicin <=1 S Levofloxacin 4 I Meropenem <=0.25 S Nitrofurantoin 256 R Tetracycline >=16 R Pipercillin/Tazobactam 8 S Trimethoprim/Sulfamethoxazole 160 R Amoxicillin/Clavulanic Acid >=32 R * These antibiotics are not available in the [facility] Formulary Contact the Microbiology Department for any additional antibiotic reporting. Contact the Microbiology Department for any additional antibiotic reporting. * ML - MAIN LAB ([facility]) . END OF REPORT * ML=Testing performed at Main Lab DEPARTMENT OF PATHOLOGY, [address] [place] [address] Richard Browning M.D. Director [facility] # [id number] 5 SEE RESULT BELOW Name: ASHIA HERRERA : [address]: Amina Solomon MD Acct: [id number] Unit: [id number] AGE: 72 Location: WOUND Re10/24/17 SEX: F Status: REG REF SPEC: [id number] LUKE: 10/24/17 [facility] DR: Amina Solomon MD REQ: [id number] RECD: 10/24/171221 STATUS: JUAN ESTRADA DR: Ashlee Adames MD [...] performed at Main Lab DEPARTMENT OF PATHOLOGY, [address] [place] [address] Richard Browning M.D. Director [facility] # [id number] 6 F/U 7 SEE RESULTS BELOW [id number] APLIGRAF TRANSFUSED 09/26/17 0823 8 SEE RESULT BELOW Name: ASHIA HERRERA : [address]: Ashlee Arvizu MD Acct: [id number] Unit: [id number] AGE: 72 Location: WOUND Re08/29/17 SEX: F Status: REG REF SPEC: [id number] LUKE: 08/29/17-1139 [facility] DR: Ashlee Arvizu MD REQ: [id number] RECD: 08/29/17 STATUS: TYLOR ESTRADA DR: Odalys Adames MD _ SOURCE: ANKLE LEFT SPDESC: ORDERED: Culture Stain Procedure Result Reported Site Wound/Misc Gram Stain Final 08/29/17- 1328 ML 4+ Epithelial Cells 4+ Neutrophils 4+ Gram Positive Cocci 4+ Gram Negative Bacilli Wound/Misc Culture Final 08/31/17- 0855 ML Organism 1 PSEUDOMONAS AERUGINOSA Quantity 2+ Organism 2 ENTEROCOCCUS FAECALIS Quantity 3+ Organism 3 NORMAL NNEKA Quantity 3+ 1. PSEUDOMONAS AERUGINOSA M.I.C. RX --------- ------ Ampicillin >=32 R Cefazolin >=64 R Cefepime 16 I Ceftriaxone >=64 R Ciprofloxacin 2 I Gentamicin 2 S Levofloxacin >=8 R Meropenem 2 S Nitrofurantoin >=512 R Tetracycline >=16 R Pipercillin/Tazobactam 16 S CONTINUED ON NEXT PAGE * ML=Testing performed at Main Lab DEPARTMENT OF PATHOLOGY, [address] [place] [address] Richard Browning M.D. Director [facility] # [id number] Patient: ASHIA HERRERA [id number] (Continued) Specimen: [id number] Collected: 08/29/17 Received: 08/29/17 (Continued) Procedure Result Reported Site Wound/Misc Culture Final (continued) 08/31/17854 1. PSEUDOMONAS AERUGINOSA (continued) M.I.C. RX --------- ------ Trimethoprim/Sulfamethoxazole >=320 R Amoxicillin/Clavulanic Acid >=32 R 2. ENTEROCOCCUS FAECALIS M.I.C. RX --------- ------ Ampicillin <=2 S Penicillin 2 S Ciprofloxacin 1 S Erythromycin >=8 R Gentamicin High Level R Levofloxacin 1 S Linezolid 2 S Nitrofurantoin <=16 S * Quinupristin/Dalfopristin 4 R * Streptomycin High Level R Tetracycline >=16 R Tigecycline <=0.12 S Vancomycin 1 S Imipenem-Deduced S * Ampicillin/Sulbactam-Deduced S * These antibiotics are not available in the [facility] Formulary Contact the Microbiology Department for any additional antibiotic reporting. Contact the Microbiology Department for any additional antibiotic reporting. * ML - MAIN LAB ([facility]) . END OF REPORT * ML=Testing performed at Main Lab DEPARTMENT OF PATHOLOGY, [address] [place] [address] Richard Browning M.D. Director [facility] # [id number] 9 SEE RESULTS BELOW [id number] APLIGRAF TRANSFUSED 08/15/17 0827 10 SEE RESULTS BELOW [id number] APLIGRAF TRANSFUSED 07/25/17 0839 11 SEE RESULTS BELOW [id number] APLIGRAF TRANSFUSED 06/27/17 0747 12 RED SWAB-LEFT MED ANKLE 13 SEE RESULT BELOW Name: ASHIA HERRERA : [address]: Ashlee Arvizu MD Acct: [id number] Unit: [id number] AGE: 72 Location: WOUND Re06/13/17 SEX: F Status: REG REF SPEC: [id number] LUKE: 06/13/17 [facility] DR: Ashlee Arvizu MD REQ: [id number] RECD: 06/13/17 STATUS: COMP [facility] DR: Odalys Adames MD _ SOURCE: ANKLE LEFT SPDESC: ORDERED: Culture Stain COMMENTS: RED SWAB-LEFT MED ANKLE QUERIES: Specimen Description LEFT MED ANKLE Procedure Result Reported Site Wound/Misc Gram Stain Final 06/13/17- 1342 ML 3+ Epithelial Cells No Neutrophils Observed 4+ Gram Negative Bacilli 3+ Gram Positive Cocci Wound/Misc Culture Final 06/15/17- 1126 ML Organism 1 ENTEROCOCCUS FAECALIS Quantity 3+ Organism 2 PSEUDOMONAS AERUGINOSA Quantity 2+ 1. ENTEROCOCCUS FAECALIS M.I.C. RX --------- ------ Ampicillin <=2 S Penicillin 2 S Ciprofloxacin 1 S Erythromycin >=8 R Gentamicin High Level R Levofloxacin 1 S Linezolid 2 S Nitrofurantoin <=16 S * Quinupristin/Dalfopristin 8 R * Streptomycin High Level R Tetracycline >=16 R CONTINUED ON NEXT PAGE * ML=Testing performed at Main Lab DEPARTMENT OF PATHOLOGY, [address] [place] [address] Richard Browning M.D. Director [facility] # [id number] Patient: ASHIA HERRERA [id number] (Continued) Specimen: [id number] Collected: 06/13/17 Received: 06/13/17 (Continued) Procedure Result Reported Site Wound/Misc Culture Final (continued) 06/15/17- 112 1. ENTEROCOCCUS FAECALIS (continued) Katie RX --------- ------ Tigecycline <=0.12 S Vancomycin 1 S Imipenem-Deduced S * Ampicillin/Sulbactam-Deduced S 2. PSEUDOMONAS AERUGINOSA M.I.C. RX --------- ------ Ampicillin >=32 R Cefazolin >=64 R Cefepime 2 S Ceftriaxone R Ciprofloxacin <=0.25 S Gentamicin 4 S Levofloxacin 0.5 S Meropenem <=0.25 S Nitrofurantoin >=512 R Tetracycline >=16 R Pipercillin/Tazobactam <=4 S Trimethoprim/Sulfamethoxazole 80 R Amoxicillin/Clavulanic Acid >=32 R * These antibiotics are not available in the [facility] Formulary Contact the Microbiology Department for any additional antibiotic reporting. Contact the Microbiology Department for any additional antibiotic reporting. * ML - MAIN LAB ([facility]) . END OF REPORT * ML=Testing performed at Main Lab DEPARTMENT OF PATHOLOGY, [address] [place] [address] Richard Browning M.D. Director [facility] # [id number] 14 FU 15 SEE RESULTS BELOW [id number] APLIGRAF [facility] 06/06/17819 16 RESULTS VERIFIED BY REPEAT ANALYSIS 17 RESULTS VERIFIED BY REPEAT ANALYSIS 18 consistent w/ previous results 19 RESULTS VERIFIED BY REPEAT ANALYSIS 20 SEE RESULTS BELOW [id number] APLIGRAF TRANSFUSED 05/16/17812 21 SEE RESULT BELOW Name: ASHIA HERRERA : [address]: Ashlee Arvizu MD Acct: [id number] Unit: [id number] AGE: 71 Location: WOUND Re04/11/17 SEX: F Status: REG REF SPEC: [id number] LUKE: 04/11/[address]: Ashlee Arvizu MD REQ: [id number] RECD: 04/11/17 STATUS: TYLOR YOUNGBLOOD DR: Blanca Adames MD _ SOURCE: FOOT,LEFT SPDESC: ORDERED: Culture Stain Procedure Result Reported Site Wound/Misc Gram Stain Final 04/11/17- 1029 ML 3+ Epithelial Cells 1+ Neutrophils 3+ Gram Positive Cocci 1+ Gram Positive Bacilli Wound/Misc Culture Final 04/13/17- 0802 ML Organism 1 NORMAL NNEKA Quantity 3+ MIXED NNEKA - Significance questioned; possible contamination. Suggest carefully collected specimen for recollect. * ML - MAIN LAB ([facility]) . END OF REPORT * ML=Testing performed at Main Lab DEPARTMENT OF PATHOLOGY, [address] [place] [address] Richard Browning M.D. Director [facility] # [id number] 22 LEFT MEDIAL FOOT ULCER 23 SEE RESULT BELOW Name: ASHIA HERRERA : [address]: Ashlee Arvizu MD Acct: [id number] Unit: [id number] AGE: 71 Location: WOUND Re03/03/17 SEX: F Status: REG REF SPEC: [id number] LUKE: 03/03/17 [facility] DR: Ashlee Arvizu MD REQ: [id number] RECD: 03/03/17 STATUS: RES OTHR DR: Odalys Adames MD _ SOURCE: FOOT,LEFT SPDESC: ORDERED: Culture Stain COMMENTS: LEFT MEDIAL FOOT ULCER QUERIES: Specimen Description RED SWAB Procedure Result Reported Site Wound/Misc Gram Stain Final 03/03/17- 1059 ML 1+ Epithelial Cells 3+ Neutrophils 1+ Gram Positive Bacilli Wound/Misc Culture PENDING * ML - MAIN LAB ([facility]) . END OF REPORT * ML=Testing performed at Main Lab DEPARTMENT OF PATHOLOGY, [address] [place] [address] Richard Browning M.D. Director [facility] # [id number] 24 SEE RESULT BELOW Name: ASHIA HERRERA DOB: [address]: Ashlee Arvizu MD Acct: [id number] Unit: [id number] AGE: 71 Location: WOUND Re03/03/17 SEX: F Status: REG REF SPEC: [id number] LUKE: 03/03/17 [facility] DR: Blanca Castro LAP MACHINE TENDER REQ: [id number] RECD: 03/03/17 STATUS: COMP RYLIEHR DR: Ashlee Adames MD _ SOURCE: FOOT,LEFT SPDESC: ORDERED: Culture Stain COMMENTS: LEFT MEDIAL FOOT ULCER QUERIES: Specimen Description RED SWAB Procedure Result Reported Site Wound/Misc Gram Stain Final 03/03/17- 1059 ML 1+ Epithelial Cells 3+ Neutrophils 1+ Gram Positive Bacilli Wound/Misc Culture Final 03/05/17- 0829 ML Organism 1 NORMAL NNEKA Quantity 1+ * ML - MAIN LAB ([facility]) . END OF REPORT * ML=Testing performed at Main Lab DEPARTMENT OF PATHOLOGY, [address] [place] [address] Richard Browning M.D. Director [facility] # [id number] 25 Acute inflammation: >10.00 26 Normal Range 180 to 914 Indeterminate Range 145 to 180 Deficient Range <145 27 consistent w/ previous results 28 [place] Tender: [id number] VIKASH GAUTAM 29 SEE RESULT BELOW Name: ASHIA HERRERA : [address]: Odalys Adames MD Acct: [id number] Unit: [id number] AGE: 70 Location: [facility] Re10/06/15 SEX: F Status: REG REF SPEC: [id number] LUKE: 10/06/15 [facility] DR: Scott Albrecht MD REQ: [id number] RECD: 10/06/15 STATUS: JUAN ESTRADA DR: Odalys Adames MD _ ORDERED: ESTRO REC ST, PTH HANDLING CH, LEVEL IV, BAD9SL-QVT, PRAS-ADD Her2/Ho has been performed at [facility] in [place], [place]. The testing reveals: / (Original [facility] report scanned into Pathology Reports). Addendum Signed (signature on file) Richard Browning MD 1544 Addendum: The following immunohistochemical stains were performed with appropriate controls on block A. ER negative OR negative HER-2 indeterminant, 2+. Gene amplification studies for HER-2 by FISH are pending and will be reported in an addendum. CONTINUED ON NEXT PAGE * ML=Testing performed at Main Lab DEPARTMENT OF PATHOLOGY, [address] [place] [address] Richard Browning M.D. Director [facility] # [id number] RUN DATE: 10/13/15 [facility] LAB LIVE PAGE 2 Patient: ASHIA HERRERA [id number] (Continued) ADDENDUM (Continued) Addendum Signed (signature on file) Richard Browning MD 1034 Addendum: I have reviewed this case and concur. Addendum Signed (signature on file) Richard Browning MD 1233 FINAL DIAGNOSIS Breast, left, stereotactic biopsy: -- Invasive ductal adenocarcinoma of breast, with: Size: Largest focus 2 mm. Tumor extent and distribution: Involves multiple cores in small patchy foci. Estimated Flor grade: Estimated tubule formation: 3. Estimated nuclear grade: 3. Estimated mitotic count: 1. Combined Flor histologic grade: 2. (7 points). Lymphovascular invasion: Not identified. Ductal Carcinoma in situ (DCIS): Present. Size: 3 mm. Extent and distribution: Involves multiple cores in small patchy foci. Architectural pattern: Solid and comedo types. Nuclear grade: High. Necrosis: Present. ER, OR, and Her2/Ho by immunohistochemistry with appropriate controls: ER: Pending; results will be reported in an addendum. OR: Pending; results will be reported in an addendum. Her2/Ho: Pending; results will be reported in an addendum. Microcalcifications: Present in association with invasive carcinoma, DCIS , and benign breast tissue. Other findings: Stromal sclerosis and fibroadenomatoid change. Predicted pTNM histopathologic stage: at least pT1a. COMMENT: Dr. Browning reviewed this case in intradepartmental CONTINUED ON NEXT PAGE * ML=Testing performed at Main Lab DEPARTMENT OF PATHOLOGY, [address] [place] [address] Richard Browning M.D. Director [facility] # [id number] RUN DATE: 10/13/15 [facility] LAB LIVE PAGE 3 Patient: ASHIA HERRERA [id number] (Continued) SPECIMEN COMMENTS (Continued) consultation and agrees with the diagnosis. CLINICAL HISTORY History of breast cancer x2, ? Recurrence versus dystrophic calcifications. PRE-OPERATIVE DIAGNOSIS Stereotactic breast biopsy GROSS DESCRIPTION The specimen is received in formalin labeled, Left Breast Stereotactic Biopsy , and consists of a 3.0 x 2.9 x 0.4 cm aggregate of yellow irregular fibrofatty soft tissue fragments and red-brown blood clot. Entirely submitted, two cassettes. Signed (signature on file) Macie Diamond MD 09/11 0953 END OF REPORT * ML=Testing performed at Main Lab DEPARTMENT OF PATHOLOGY, [facility] [address] [place], [place] [address] Richard Browning M.D. Director [facility] # [id number] 30 consistent w/ previous results 31 FASTING 32 RESULTS VERIFIED BY REPEAT ANALYSIS 33 RESULTS VERIFIED BY REPEAT ANALYSIS 34 RESULTS VERIFIED BY REPEAT ANALYSIS 35 RESULTS VERIFIED BY REPEAT ANALYSIS 36 RUN DATE: 03/22/14 [facility] LAB LIVE PAGE 1 RUN TIME: 2288 [facility] [employer] [place], [place] [address] Specimen Inquiry Name: ASHIA HERRERA : [address]: Adilene Chawla MD Acct: [id number] Unit: [id number] AGE: 68 Location: WOUND Re03/18/14 SEX: F Status: REG RCR SPEC: [id number] LUKE: 03/18/14-0909 [facility] DR: Adilene Chawla MD REQ: [id number] RECD: 03/18/146945 STATUS: TYLOR ESTRADA DR: Odalys Adames MD _ SOURCE: LEG, RIGHT SPDESC: ORDERED: Culture Stain QUERIES: Specimen Description RIGHT LEG ULCERS Procedure Result Verified Site Wound/Misc Gram Stain Final 03/18/14- 1524 ML 1+ Epithelial Cells 1+ Gram Negative Bacilli Wound/Misc Culture Final 03/22/14- 1543 ML Organism 1 ENTEROBACTER CLOACAE COMPLEX Quantity 3+ Organism 2 PROTEUS MIRABILIS/PENNERI Quantity 2+ 1. ENTEROBACTER CLOACAE COMPLEX M.I.C. RX --------- ------ Cefazolin >=64 R Cefepime <=1 S Ceftriaxone <=1 S Ciprofloxacin <=0.25 S Gentamicin <=1 S Levofloxacin <=0.12 S Meropenem <=0.25 S Nitrofurantoin 64 I Tetracycline 2 S Pipercillin/Tazobactam <=4 S Trimethoprim/Sulfamethoxazole <=20 S Amoxicillin/Clavulanic Acid >=32 R Aztreonam <=1 S CONTINUED ON NEXT PAGE * ML=Testing performed at Main Lab DEPARTMENT OF PATHOLOGY, [employer] [place], [place] [address] Richard Browning M.D. Director [facility] Permit #[id number] RUN DATE: 03/22/14 [facility] LAB LIVE PAGE 2 RUN TIME: [address] [employer] [place], [place] [address] Specimen Inquiry Patient: SHARONASHIA [id number] (Continued) Specimen: [id number] Collected: 03/18/14-908 Received: 03/18/14-1307 (Continued) Procedure Result Verified Site Wound/Misc Culture Final (continued) 03/22/14- 4371 2. PROTEUS MIRABILIS/PENNERI M.I.C. RX --------- ------ Ampicillin <=2 S Cefazolin <=4 S Cefepime <=1 S Ceftriaxone <=1 S Ciprofloxacin <=0.25 S Gentamicin <=1 S Levofloxacin <=0.12 S Meropenem 0.5 S Nitrofurantoin 256 R Tetracycline >=16 R Pipercillin/Tazobactam <=4 S Trimethoprim/Sulfamethoxazole <=20 S Amoxicillin/Clavulanic Acid 4 S Aztreonam <=1 S Contact the Microbiology Department for any additional antibiotic reporting. END OF REPORT * ML=Testing performed at Main Lab DEPARTMENT OF PATHOLOGY, [address] [place] [address] Richard Browning M.D. Director [facility] Permit #[id number] 37 FEW GRAM NEG RODS, FEW GRAM POS COCCI 38 Enterobacter cloacae complex Predominating WOUND CULTURE organism 1 Enterobacter cloacae complex Predominating Amikacin <=2 Susceptible Amoxicillin/CA >=32 Resistant Aztreonam <=1 Susceptible Cefazolin >=64 Resistant Cefepime <=1 Susceptible Cefoxitin >=64 Resistant Ceftriaxone <=1 Susceptible Ciprofloxacin <=0.25 Susceptible Ertapenem <=0.5 Susceptible Gentamicin <=1 Susceptible Imipenem 2 Susceptible Levofloxacin <=0.12 Susceptible Piperacillin/tazobactam <=4 Susceptible Tobramycin <=1 Susceptible Trimethoprim/Sulfa 160 Resistant 39 result erick'd 40 The thyroglobulin testing method is an immunoenzymatic assay manufactured by [employer] and performed on the [employer]ne[employer]s DXI 800. The thyroglobulin antibody testing method is an electrochemiluminescence assay manufactured by [employer] and performed on the Modular or Mercy System. Values obtained from different assay methods or kits may be different and cannot be used interchangeably. The results cannot be interpreted as absolute evidence for the presence or absence of malignant disease. Specimens with thyroglobulin concentrations greater than 250,000 ng/mL may give falsely lower results. 41 -- REFERENCE VALUE -- <=33 Athyrotic individuals normally have hTg values <=2. Test Performed by: [facility] [address] [place] [address] Enrollment Services Dean: Eulalio Adams III, M.D. 42 1sst 43 No significant growth. 44 [employer], Runner. DEPARTMENT OF PATHOLOGY or Extension 6897 EDUCATION DEPARTMENT REGISTRAR CYTOLOGY REPORT PATIENT: ASHIA HERRERA : 1945 AGE: 66 Y SEX: F ACCT: [id number] PROCEDURE DATE: 05/26/2012 DATE RECEIVED: 05/29/2012 REQUESTING PHYSICIAN: VALERIE OG MD LOCATION: [facility] Case No. [id number] PATIENT DATA: [id number] SPECIMEN SUBMITTED: * * (HPVII) THIN PREP W/HPV (LSIL/ASC/MITZY) * * CERVICAL/ENDOCERVICAL RELEVANT HISTORY: Menarche: Y Menopause: Y SPECIMEN ADEQUACY SATISFACTORY FOR EVALUATION, ENDOCERVICAL TRANSFORMATION ZONE COMPONENT PRESENT GENERAL CATEGORIZATION NEGATIVE FOR INTRAEPITHELIAL LESIONS OR MALIGNANCY COMMENTS Thin Prep Pap tests are examined with an FDA approved location-guidance system. ADDITIONAL COPIES SENT TO: Screened/Rescreened Electronically Signed Sign Out Date/Time: by: by: GINA ADAME, 05/30/2012 13:59 CT(ASCP) Note: The Pap smear is a screening test designed to aid in the detection of premalignant and malignant conditions of the uterine cervix. It is not a diagnostic procedure and should not be used as the sole means of detecting cervical cancer. Both false-positive and false-negative reports do occur. 00 UA Pap Smear performed at [facility] Dir: Blair Merchant MD, [address] [facility] [address] 01 insulation extruder operator [facility] [place] Dir: Paul Howe MD, [address] [facility] [address] 02 BN Lab [facility] [place] Dir: Scott Johnston MD, [address] [facility] [address] For inquiries regarding HPV test results, the physician may contact Lab [facility]: [phone] "" 45 RESULT ERICK'D 46 SONU PASCAL WELLNESS 47 Anion gap measurement may be of limited value in the presence of any alkalosis, especially in a combined acid base disorder. . 48 Classification: Desirable . 49 Classification: Optimal Level . 50 SCANT NORMAL URETHRAL OR PERINEAL NNEKA 10^1-10,000 ORGANISMS/ML (FEW)^CCU Procedures Date CPT Code Description Status Comment 07/28/2018 72047 Electrocardiogram Complete Completed 05/30/2018 Diabetic Retinal Eye Exam Completed no retinopathy 02/16/2018 07298 Finger Or Heel Stick Completed 12/15/2017 Mammogram Completed negative. biopsy also negative. 12/13/2017 Mammogram Completed 10/14/2017 96177 Finger Or Heel Stick Completed 06/20/2017 Mammogram Completed 06/07/2017 77910 Brief Emotional/Behav Completed Assessment W/ Scoring Doc Per Standard Inst 06/07/2017 82212 Finger Or Heel Stick Completed 02/03/2017 62172 Finger Or Heel Stick Completed 11/11/2016 Mammogram Completed 09/21/2016 46656 Finger Or Heel Stick Completed 2016 Mammogram Completed 01/23/2016 Mammogram Completed 11/27/2015 65990 Finger Or Heel Stick Completed 10/08/2015 Mammogram Completed 10/06/2015 Mammogram Completed 09/25/2015 Mammogram Completed 11/14/2012 Mammogram Completed 05/26/2012 76543 Finger Or Heel Stick Completed 03/08/2012 Mammogram Completed 05/06/2011 88916 Apply Unna Boot Completed 12/03/2010 37111 Finger Or Heel Stick Completed 09/30/2009 63763 Electrocardiogram Complete Completed 02/21/2008 Mammogram Completed 07/04/2007 Mammogram Completed 01/17/2007 Mammogram Completed 01/26/2005 Bone Mineral Density Test Completed Normal Encounters Type Date Location Provider CPT E/M Dx Office Visit 02/16/2018 8:30a [facility] Odalys Adames, 23012 E11.621 Keith I10 C50.011 G56.00 L02.612 B35.3 L85.3 Office Visit 10/14/2017 1:40p [facility] Odalys Adames M.D. 25153 E11.621 G56.00 Office Visit 06/07/2017 9:00a [facility] Odalys Adames M.D. 78563 Z00.01 C50.012 I10 E11.621 E55.9 L40.8 Z13.9 Office Visit 03/29/2017 2:20p [facility] Odalys Adames M.D. 91009 E11.621 Office Visit 03/08/2017 9:15a [facility] Office Odalys Adames M.D. 93851 I10 Office Visit 02/03/2017 9:40a [facility] Odalys Adames M.D. 53077 E11.621 C50.012 I10 L89.892 Office Visit 09/21/2016 9:40a [facility] Office Odalys Adames M.D. 51724 E11.621 C50.012 M25.512 M25.562 Z23 Office Visit 07/15/2016 3:00p [facility] Office Odalys Adames M.D. 88444 L03.032 C50.011 E11.621 Office Visit 05/18/2016 3:20p [facility] Office Odalys Adames M.D. 44295 I10 E11.621 L89.892 C50.012 Office Visit 04/06/2016 11:20a [facility] Odalys Adames M.D. 89472 L89.892 E11.621 I10 C50.012 Office Visit 03/16/2016 9:40a [facility] Odalys Adames M.D. 33486 E11.9 D05.82 I10 E11.621 Office Visit 11/27/2015 9:40a [facility] Odalys Adames M.D. 15076 D05.82 E11.9 I10 E55.9 Office Visit 08/25/2015 4:20p [facility] Office Odalys Adames M.D. 45622 250.00 V76.12 782.9 268.9 401.9 V03.82 Office Visit 03/08/2014 9:15a [facility] Chaparrita Hernandez [place] [address] 459.81 250.00 Office Visit 03/06/2014 6:15p Main Office Shawna Allen, [place] 04691 459.81 682.6 250.00 707.8 Office Visit 01/25/2013 9:00a [facility] Odalys Adames M.D. 46043 250.00 401.9 790.6 530.81 Office Visit 10/26/2012 9:40a [facility] Office Odalys Adames M.D. 43405 250.00 401.9 682.6 272.4 174.0 530.81 Office Visit 08/18/2012 9:00a [facility] Office Odalys Adames M.D. 91115 682.6 716.90 Office Visit 05/26/2012 8:00a [facility] Valerie Og M.D. 33709 V70.0 250.00 782.3 278.00 V72.31 454.8 754.69 599.72 Office Visit 05/29/2011 12:10p Main Office Macie Rivas M.D. 15351 782.3 692.9 Office Visit 05/10/2011 9:00a [facility] Office Macie Rivas M.D. 23628 454.0 782.3 692.9 Office Visit 05/06/2011 3:20p [facility] Macie Rivas 58488 454.0 M.D. 782.3 692.9 Office Visit 03/05/2011 9:00a [facility] Macie Rivas 82178 250.00 M.DSusanne 782.3 692.9 401.9 454.0 Office Visit 12/03/2010 9:20a [facility] Macie Rivas 83755 250.00 M.D. 272.4 782.3 682.6 Office Visit 08/27/2010 10:20a [facility] Macie Rivas 48414 782.3 M.D. 401.9 250.00 272.4 Office Visit 08/20/2010 9:40a [facility] Macie Rivas, 12529 782.3 M.D. 707.14 401.9 Office Visit 08/12/2010 2:30p [facility] Macie Rivas, 27045 782.3 M.D. 682.6 707.14 Office Visit 05/26/2010 4:20p [facility] Macie Rivas, 74593 250.00 M.D. 401.9 707.14 682.3 Office Visit 09/30/2009 10:30a [facility] Office Macie Rivas, 50754 250.00 M.D. 401.9 719.46 V72.83 V70.0 Office Visit 08/29/2009 9:40a [facility] Macie Rivas, 90341 250.00 M.D. 401.9 719.46 707.8 Office Visit 07/07/2009 4:00p Main Office Romulo Arellano M.D. 01081 716.90 719.46 250.00 401.9 Office Visit 03/21/2009 9:00a [facility] Macie Rivas, 54942 707.8 M.D. 250.00 807.00 Office Visit 03/07/2009 3:40p [facility] Macie Rivas, 35670 707.8 M.D. Office Visit 02/27/2009 9:20a [facility] Macie Rivas, 84957 250.00 M.D. 401.9 707.8 Office Visit 11/26/2008 9:20a [facility] Macie Rivas, 32206 250.00 M.D. 401.9 Office Visit 08/27/2008 4:00p [facility] Macie Rivas, 76591 250.00 M.D. 401.9 V10.3 Office Visit 10/24/2007 9:00a [facility] Macie Rivas, 05266 401.9 M.D. 250.00 V10.3 Office Visit 07/21/2007 11:00a [facility] Macie Rivas, 13905 401.9 M.D. 250.00 278.00 Office Visit 05/30/2007 9:00a [facility] Shawna Allen [place] 19316 401.9 729.81 250.00 Office Visit 03/24/2006 9:00a [facility] Macie Rivas, 76992 250.00 M.D. Office Visit 12/24/2005 9:00a [facility] Macie Rivas, 69350 250.00 M.D. 401.9 Office Visit 09/21/2005 9:10a [facility] Macie Rivas, 96255 250.00 M.D. 401.9 530.81 Office Visit 06/10/2005 9:00a [facility] Macie Rivas, 28887 250.00 M.D. 401.9 Office Visit 02/22/2005 9:00a [facility] Macie Rivas, 00231 250.00 M.D. 401.9 Office Visit 11/16/2004 9:40a [facility] Office Macie Rivas, 49208 791.0 M.D. 250.00 250.80 401.9 707.8 Office Visit 10/30/2004 9:00a [facility] Office Macie Rivas, 81329 250.00 M.D. 401.9 V17.3 V58.69 Office Visit 09/22/2004 1:30p [facility] Office Chaparrita HernandezLakeisha-Melo 70875 891.0 250.00 Office Visit 08/25/2004 9:00a [facility] Office Chaparrita HernandezLakeisha-Melo 69268 891.0 250.00 Office Visit 08/18/2004 11:30a [facility] Office Chaparrita HernandezEmmett 91691 891.0 250.00 Office Visit 07/24/2003 9:00a [facility] Office Phil Obrien M.D. 66710 250.00 401.9 Office Visit 03/20/2003 9:20a [facility] Office Phil Obrien M.D. 38146 250.00 401.1 240.9 Office Visit 08/22/2002 9:40a [facility] Office Phil Obrien M.D. 00018 Office Visit 06/20/2002 9:00a [facility] Office Phil Obrien M.D. 09878 Office Visit 12/02/2000 3:00p [facility] Office Richard Michelle M.D. 16075 Office Visit 11/14/2000 2:00p [facility] Office Richard Michelle M.D. 83856 Plan of Care Future Appointment(s):01/12/2019 11:20 am - Odalys Adames M.D. at [facility] Yarmpj0807/28/2018 - Odalys Adames M.D.Z01.818 Encounter for other preprocedural examinationComments:EKG is normal.Breast Cancer - left breast biopsy site is oozing. see below.All labs are normal, youare cleared for surgery. 10 day prior to surgery stop the aspirin, vitamin C and all other vitamins and supplement. Start a bowel regimine of stool softener AND MIRALAX with [facility].M25.551 Pain in right hipM16.11 Unilateral primary osteoarthritis, right hipE11.621 Type 2 diabetes mellitus with foot ulcerComments:well controlled Hemoglobion A1c=7.0I10 Essential (primary) hypertensionComments:well fcztxxfxncO63.011 Malignant neoplasm of nipple and areola, right female breastComments:under the care of radiation oncology. Left breast is oozing. see below had negative biopsy in February. Has declined recommended treatment for recurrent breast cancer of surgery, radiation and chemo. Cephalexin ordered for the oozing.Z23 Encounter for immunizationComments: tdap today.L03.313 Cellulitis of chest wallNew Medication:Cephalexin 500 mgComments:biopsy site of left breast is oozing. will treat with cephalexin for 14 days. This is a recurrent problem.AllComments:~B_~U_Medication Management~b_ ~u_ Patient Understands medications she's taking? Yes No Are there Barriers to Adherence? Yes No Has the patient been asked about herbal supplements and therapies, and OTC meds? Yes No
[2018-08-17] MEDS ORDERED: Dextrose 50% Syringe 50 ML* 25 GM/50 ML SYRINGE IV PUSH PRN (18:59)
[2018-08-17] MEDS ORDERED: OXYCODONE PO PRN (19:29)
[2018-08-17] MEDS ORDERED: ACETAMINOPHEN PO PRN (19:29)
[2018-08-17] MEDS ORDERED: Morphine INJ* 2 MG/ML 1 ML SYRINGE (TWO MG - NEW SYRINGE VERSION) IV PRN (19:31)
[2018-08-17] MEDS ORDERED: [UNRECOGNIZED DRUG - OTHER] PO (20:00)
[2018-08-17] MEDS ORDERED: BISACODYL 10 MG PR (20:00)
[2018-08-17] MEDS ORDERED: [UNRECOGNIZED DRUG - OTHER] IV (20:00)
[2018-08-17] MEDS ORDERED: LACTULOSE PO (20:00)
[2018-08-17] MEDS ORDERED: DIPHENHYDRAMINE IV (20:00)
[2018-08-17] MEDS ORDERED: MAGNESIUM HYDROXIDE PO ×2 (20:00)
[2018-08-17] MEDS ORDERED: ONDANSETRON IV (20:00)
[2018-08-17] MEDS ORDERED: ACETAMINOPHEN PO (20:00)
[2018-08-17] MEDS ORDERED: DIPHENHYDRAMINE 12.5 MG/5 ML PO PRN (20:00)
[2018-08-17] MEDS ORDERED: LACTATED RINGERS IV SCH (20:00)
[2018-08-17] MEDS ORDERED: Calcium Carbonate CHEW TAB* 500 MG (TUMS) PO ONE (22:29)
[2018-08-17] MEDS ORDERED: Calcium Carbonate CHEW TAB* 500 MG (TUMS) ONE (22:31)
[2018-08-17] MEDS: DOCUSATE 100 MG PO SCH (22:35)
[2018-08-17] MEDS: metFORMIN* 500 MG TAB PO SCH (22:35)
[2018-08-17] MEDS: Insulin LISPRO* 1 UNITS UNIT SUBCUT SCH (22:36)
[2018-08-17] MEDS: ceFAZolin 1 GM in Dextrose (*) 1 GM/50 ML BAG IVPB SCH (22:39)
--- NOTE | 2018-08-17 23:45 | CONS ---
CONSULTATION REPORT: DATE OF CONSULT: 08/17/18 CONSULTING PROVIDER: Frantz Rebollar MD SERVICE REQUESTING CONSULT: Dr. Alejandra Castanon of Orthopedics. CHIEF COMPLAINT: Right total hip arthroplasty. REASON FOR CONSULT: Comorbidity management including diabetes, hypertension, and volume status. HISTORY OF PRESENT ILLNESS: Liz Leon is a 73-year-old female with past medical history of breast cancer, jvk-sexriwn-fissepsfd diabetes mellitus, hypertension, and on diuretics for chronic leg edema who presented on the day of admission for elective right total hip arthroplasty for end-stage osteoarthritis. She denies history of Congestive Heart Failure. She reports good pain control with 2/10 without the need for any medications currently. She denies any other complaints including lower abdominal pain, nausea, or vomiting. She reports her last A1c level was approximately 7% on 07/28/18 with PCP, Dr. Odalys Adames. She denies any history of heart attacks, CHF. She is slow with going up approximately 11 stairs into her home, but denies shortness of breath or orthopnea. PAST MEDICAL HISTORY: Ujp-iobhqsa-ojicbhopb diabetes mellitus; breast cancer, status post lumpectomy x3 in 2005, 2012, and 2015; hypertension; left total knee arthroplasty; bilateral carpal tunnel release; and . MEDICATIONS: Home medications include: 1. Lisinopril 30 mg daily. 2. Januvia 30 mg daily. 3. Metformin 500 mg twice a day. 4. Furosemide 20 mg daily. 5. Aspirin 81 mg daily. 6. Hydrochlorothiazide 12.5 mg daily. 7. Tramadol 50 mg every 6 hours as needed. 8. Ibuprofen 800 mg p.o. q.8 hours p.r.n. 9. Cholecalciferol 5000 units p.o. q.a.m. 10. Calcium carbonate/vitamin D3 of 600 plus vitamin D 1 tab p.o. q.a.m. 11. Ascorbic acid 1 tab p.o. q.a.m. 12. Potassium 99 mg p.o. q.a.m. ALLERGIES: LATEX, TAPES. FAMILY HISTORY: Mother with coronary artery disease, father with end-stage renal disease, both . SOCIAL HISTORY: She lives with her sister. Never smoker. Does not drink, or do other drugs. She desires to be a full code. REVIEW OF SYSTEMS: Complete 14-point review of systems negative except as per HPI. PHYSICAL EXAM: General: The patient is in no acute distress. Vital Signs: Temperature 95.8, pulse 59, respiratory rate 16, sats 100% on 2 liters, and blood pressure 119/50. HEENT: Normocephalic and atraumatic. Pupils are equal , round, and reactive to light. Extraocular motions intact. No scleral icterus. Lungs are clear to auscultation anteriorly with no wheezes, rales, or rhonchi. Cardiovascular: Regular rate and rhythm. No murmurs, rubs, or gallops. Abdomen: Soft, nontender, obese. No rebound, no guarding. Extremities: Warm and well perfused, no peripheral edema. Right hip with no evidence of hematoma. Neuro: Cranial nerves II through XII intact, moving all extremities. DIAGNOSTIC STUDIES: Imaging with hip and pelvis x-ray demonstrating status post right hip arthroplasty. EKG with normal sinus rhythm with first-degree heart block [place] 208, left axis, and poor R-wave progression. ASSESSMENT AND PLAN: Liz Leon is a 73-year-old female with a past medical history of hll-jmtqxue-zjahmbxqi diabetes mellitus, breast cancer, and hypertension presenting for total right hip arthroplasty. She is recovering well. Consulted for diabetic and other comorbidity management. I am starting the patient's metformin and Januvia, putting her on sliding scale insulin and point of care glucose testing q.achs. I am changing her diet to carbohydrate consistent from ordered unrestricted. For her hypertension, I am continuing her lisinopril 30 mg daily and I will start her Lasix, not tomorrow but the next day. She has just finished getting 1 liter of LR. Continue her hydrochlorothiazide 12.5 mg in the a.m. I am going to hold her ibuprofen and defer to orthopedic service for the desired pain control. She is currently 2/ 10. I am going to get a BMP in the morning, nothing in our system since 2005 when her creatinine was 0.63 and GFR was 93.7. She is a full code. We will continue to follow along this interesting case. [id number]/[facility] #: [id number] MTDD
[2018-08-17] MEDS: ACETAMINOPHEN PO PRN (23:52)
[2018-08-17] MEDS: OXYCODONE PO PRN (23:52)
[2018-08-18] MEDS: OXYCODONE PO PRN ×4 (04:14→20:36)
[2018-08-18] MEDS: ACETAMINOPHEN PO PRN ×4 (04:14→20:36)
[2018-08-18] MEDS: ceFAZolin 1 GM in Dextrose (*) 1 GM/50 ML BAG IVPB SCH ×2 (04:16→08:02)
[2018-08-18 08:03] LABS: Hematocrit 25 % (35-47); Hemoglobin 8.4 g/dl (12.0-16.0)
[2018-08-18] MEDS: metFORMIN* 500 MG TAB PO SCH (08:03)
[2018-08-18] MEDS: Aspirin EC TAB* 81 MG TAB.EC PO SCH (08:03)
[2018-08-18] MEDS: DOCUSATE 100 MG PO SCH ×2 (08:03→20:21)
[2018-08-18] MEDS: Cholecalciferol TAB* 1000 UNITS PO SCH (08:03)
[2018-08-18] MEDS: Ascorbic Acid TAB* 500 MG PO SCH (08:03)
[2018-08-18] MEDS: Calcium/Vitamin D TAB 250/125* TAB PO SCH (08:03)
[2018-08-18] MEDS: Insulin LISPRO* 1 UNITS UNIT SUBCUT SCH ×5 (08:07→20:36)
[2018-08-18 08:08] LABS: INR 0.98 (0.77-1.02)
[2018-08-18 08:24] LABS: EGFR Non-African American 60.2 (>60)
--- NOTE | 2018-08-18 08:49 | PN ---
Subjective Date of Service: 08/18/18 Interval History: Pt NAD this afternoon. Reports pain well controlled on current medication regimen and not currently in pain. Had episode of nausea and vomiting overnight/ environmental analyst, but is no longer nauseated as of afternoon and is tolerating PO fluids and foods. Was able to walk to door and back with assist of PT. Denies SOB, CP, palpitations. Objective Active Medications: Scheduled Ascorbic Acid (Vitamin C Tab*) 500 mg PO QAM [facility] Aspirin (Aspirin Ec Tab*) 81 mg PO QAM [facility] Calcium/Vitamin D (Oscal D Tab 250/125*) 1 tab PO QAM [facility] Cholecalciferol (Vitamin D Tab*) 5,000 units PO QAM [facility] Docusate Sodium (Colace Cap*) 100 mg PO BID [facility] Enoxaparin Sodium (Lovenox(*)) 30 mg SUBCUT Q24H [facility] Furosemide (Lasix Tab*) 20 mg PO QAM [facility] Hydrochlorothiazide (Hydrodiuril Tab*) 12.5 mg PO QAM [facility] Lactated Ringer's (Lactated Ringers 1000 Ml Bag*) 1,000 mls @ 100 mls/hr IV PER RATE [facility] Cefazolin Sodium/Dextrose (Kefzol 1 Gm In Dextrose Duplex (*)) 1 gm in 50 mls @ 200 mls/hr IVPB Q6H [facility] Insulin Human Lispro (Humalog*) 0 units SUBCUT ACHS [facility]; Protocol Lisinopril (Prinivil Tab*) 30 mg PO QAM [facility] Metformin HCl (Glucophage*) 500 mg PO BID [facility] Pharmacy Profile Note (Coumadin Daily Reminder*) 1 note FOLLOW UP 1700 [facility] Sitagliptin Phosphate (Januvia (Nf)) 50 mg PO QAM [facility]; Protocol Last Admin: 08/18/18 08:03 Dose: 50 mg Warfarin Sodium (Coumadin Tab(*)) 6 mg PO ONCE@1700 ONE Stop: 08/18/18 20:01 PRN Acetaminophen (Tylenol Tab*) 650 mg PO Q4H PRN PRN Reason: MILD PAIN or TEMP >= 101 F Bisacodyl (Dulcolax Supp*) 10 mg ME DAILY PRN PRN Reason: CONSTIPATION Dextrose (D50w Syringe 50 Ml*) 12.5 gm IV PUSH .FOR FS < 60 - SS PRN PRN Reason: FS < 60 Diphenhydramine HCl (Benadryl Liq*) 12.5 mg PO Q4H PRN PRN Reason: ITCHING Diphenhydramine HCl (Benadryl Iv*) 12.5 mg IV Q4H PRN PRN Reason: ITCHING Lactulose (Lactulose*) 30 ml PO Q6H PRN PRN Reason: CONSTIPATION Magnesium Hydroxide (Milk Of Magnesia Liq*) 30 ml PO Q6H PRN PRN Reason: CONSTIPATION Morphine Sulfate (Morphine Inj ((Syringe))*) 2 mg IV Q2H PRN PRN Reason: PAIN - SEVERE Ondansetron HCl (Zofran Inj*) 4 mg IV Q6H PRN PRN Reason: NAUSEA/VOMITING Oxycodone HCl (Roxycodone Tab*) 10 mg PO Q4H PRN PRN Reason: MODERATE PAIN Oxycodone/Acetaminophen (Percocet 5/325 Tab*) 1 tab PO Q4H PRN PRN Reason: PAIN - MILD Oxycodone/Acetaminophen (Percocet 5/325 Tab*) 2 tab PO Q4H PRN PRN Reason: PAIN - MODERATE Last Admin: 08/18/18 04:14 Dose: 2 tab Vital Signs - 8 hr 08/18/18 08/18/18 08/18/18 03:55 04:14 07:38 Temperature 98.1 F Pulse Rate 79 Respiratory 20 16 16 Rate Blood Pressure 136/51 (mmHg) O2 Sat by Pulse 100 Oximetry Oxygen Devices in Use Now: None, Nasal Cannula Eyes: No Scleral Icterus, PERRLA Ears/Nose/Mouth/Throat: NL Teeth, Lips, Gums, Mucous Membranes Moist Neck: NL Appearance and Movements; NL JVP, Trachea Midline Respiratory: Symmetrical Chest Expansion and Respiratory Effort, Clear to Auscultation Cardiovascular: NL Sounds; No Murmurs; No JVD, RRR Abdominal: NL Sounds; No Tenderness; No Distention Extremities: No Edema, No Clubbing, Cyanosis, - - Chronic venous stasis changes on bilateral lower extremeties Skin: No Rash or Ulcers, - Neurological: Alert and Oriented x 3, NL Muscle Strength and Tone Result Diagrams: 08/18/18 07:46 08/18/18 14:27 Assess/Plan/Problems-Billing Assessment: VANE is a 73 year old female with a PMH HTN, DM (non insulin dependent, on Januvia and Metformin), HTN, Breast Cancer s/p lumpectomy, leg swelling on lasix and HCTZ admitted for elective R total hip arthroplasty for end stage arthritis on 08/17. - Patient Problems (1) History of total right hip arthroplasty Current Visit: Yes Status: Acute Code(s): Z96.641 - PRESENCE OF RIGHT ARTIFICIAL HIP JOINT SNOMED Code(s): 046054244322 Comment: - POD 1. Plan per ortho. - Pain well controlled with PRN percocet 5/325 2 tab (moderate pain) with PRN tylenol and oxycodone also available - Continue bowel regimen with scheduled colace and additional agents PRN - Continue PT with posterior hip precautions (2) HTN (hypertension) Current Visit: No Status: Acute Code(s): I10 - ESSENTIAL (PRIMARY) HYPERTENSION SNOMED Code(s): 73520160 Comment: - No hypertension this admission. BP was soft this afternoon, 107/38 (MAP 52) in the setting of resuming home medications Lisinopril 30mg and HCTZ 12.5mg daily. 500mL NaCl given in setting of low MAP, bump in Cr from 0.92 to 1.1, and decreased UOP. - All BP meds on hold until tomorrow (including Lasix 20mg which was not yet restarted this admission), at which time we will reassess. (3) Type II diabetes mellitus Current Visit: No Status: Acute Comment: - Home oral agents on hold - Continue lispro sliding scale. Glucose was trending down, but has now leveled out around 200. (4) Hyponatremia Current Visit: Yes Status: Acute Code(s): E87.1 - HYPO-OSMOLALITY AND HYPONATREMIA SNOMED Code(s): 56641327 Comment: - Na 127 this AM and 126 this afternoon. Urine sodium ordered. - Likely secondary to SIADH in the setting of recent surgery. Pt does not appear volume overloaded on exam. - Will monitor closely and receck this evening and tomorrow morning in the setting of fluid administration (5) SANJANA (acute kidney injury) Current Visit: Yes Status: Acute Code(s): N17.9 - ACUTE KIDNEY FAILURE, UNSPECIFIED SNOMED Code(s): 62785916 Comment: - Cr 1.1 from 0.92 this morning in the setting of soft BP this AM (107/38) and decreased urine output after deng was removed (300mL total today) - 500mL NaCl bolus ordered (6) DVT prophylaxis Current Visit: No Status: Acute Code(s): ZKK3611 - SNOMED Code(s): 464989228 Comment: - Lovenox 30mg Q24H with coumadin bridge. INR 0.98 today (7) Full code status Current Visit: No Status: Acute Code(s): Z78.9 - OTHER SPECIFIED HEALTH STATUS SNOMED Code(s): 482311450 Status and Disposition: Possible discharge tomorrow per ortho. Has requested referral to [facility] and PT.
[2018-08-18] MEDS ORDERED: CMCS:Sitagliptin (NF) 50 MG TAB PO SCH (09:00)
[2018-08-18] MEDS ORDERED: Lisinopril TAB* 10 MG PO SCH (09:00)
[2018-08-18] MEDS ORDERED: Hydrochlorothiazide TAB* 25 MG PO SCH (09:00)
--- NOTE | 2018-08-18 09:06 | PN ---
Progress Note - Progress Note Date of Service: 08/18/18 SOAP: Subjective: POD #1 Right BETINA, doing ok. C/o nausea, no vomiting. Pain controlled. Denies CP/ SOB, f/c. Objective: Vitals: Temp Pulse Resp BP Pulse Ox 98.8 F 88 16 116/43 100 08/18/18 08:04 08/18/18 08:04 08/18/18 08:04 08/18/18 08:04 08/18/18 08:04 Gen: A&Ox3, NAD at rest Right Hip: Dressing C/D/I, thigh soft, NT. +f/e at ankle and MTPs. N/V intact Labs: Laboratory Results - last 24 hr 08/17/18 08/17/18 08/17/18 11:50 16:04 22:21 Hgb Hct INR (Anticoag Therapy) Sodium Potassium Chloride Carbon Dioxide Anion Gap BUN Creatinine Est GFR ( Amer) Est GFR (Non-Af Amer) BUN/Creatinine Ratio Glucose POC Glucose (mg/dL) 144 H 211 H 351 H Calcium 08/18/18 08/18/18 08/18/18 07:41 07:46 07:46 Hgb 8.4 L Hct 25 L INR (Anticoag Therapy) 0.98 Sodium Potassium Chloride Carbon Dioxide Anion Gap BUN Creatinine Est GFR ( Amer) Est GFR (Non-Af Amer) BUN/Creatinine Ratio Glucose POC Glucose (mg/dL) 194 H Calcium 08/18/18 07:46 Hgb Hct INR (Anticoag Therapy) Sodium 127 L Potassium 4.4 Chloride 93 L Carbon Dioxide 25 Anion Gap 9 BUN 19 Creatinine 0.92 Est GFR ( Amer) 72.8 Est GFR (Non-Af Amer) 60.2 BUN/Creatinine Ratio 20.7 H Glucose 183 H POC Glucose (mg/dL) Calcium 8.0 L Assessment: POD #1 Right BETINA Plan: PT/OT with posterior hip precautions INR 0.98, Coumadin 6mg tonight Possible d/c tomorrow
[2018-08-18] MEDS: Enoxaparin(*) 30 MG/0.3 ML SYR SUBCUT SCH (12:20)
[2018-08-18] MEDS ORDERED: NS 0.9% 500 ML* 500 ML IV SCH (16:00)
[2018-08-18] MEDS ORDERED: Insulin LISPRO* 1 UNITS UNIT SUBCUT SCH (17:50)
[2018-08-18] MEDS: [UNRECOGNIZED DRUG - OTHER] PO (18:13)
[2018-08-18] MEDS: OXYCODONE 10 MG PO (18:13)
[2018-08-18] MEDS ORDERED: Warfarin TAB(*) 6 MG PO ONE (20:00)
[2018-08-18] MEDS ORDERED: Calcium Carbonate CHEW TAB* 500 MG (TUMS) PO ONE (20:22)
[2018-08-18 21:11] LABS: EGFR Non-African American 55.9 (>60)
--- NOTE | 2018-08-18 23:48 | OP ---
OPERATIVE NOTE: DATE OF OPERATION: 08/17/18 DATE OF : 49 ATTENDING SURGEON: Alejandra Castanon MD BAGGING SALVAGER: JOVANNI Matson Mr. Bermudez did help throughout the procedure with preparation of the leg, wound retraction, manipulat ion of the hip, and wound closure. ANESTHESIOLOGIST: Dr. Multani. ANESTHESIA: General. PRE-OP DIAGNOSES: Severe end-stage degenerative osteoarthritis of the right hip joint with morbid ob esity. POST-OP DIAGNOSES: Severe end-stage degenerative osteoarthritis of the right hip joint with morbid o besity. OPERATIVE PROCEDURE: Right total hip arthroplasty plus modifier for added operative time at least 1 hour because of morbid obesity. BRIEF HISTORY/INDICATIONS: Ms. Leon is a 73-year-old female with years of increasingly severe rig ht hip pain. Radiographs showed caxr-de-atjv arthritis. She failed conservative treatment with antii nflammatories, pain medication, intra- articular injection, and physical therapy. Due to continued p ain and decreased quality of life, she elected to undergo right total hip arthroplasty. Informed con sent was obtained from the patient. She understood the risks of surgery included, but were not limit ed to, bleeding, infection, damage to nearby structures, continued pain, need for further surgery, in traoperative fracture, nerve palsy, hardware failure or loosening, dislocation, leg length discrepanc y, stroke, heart attack, blood clot, and . She wished to proceed. INTRAOPERATIVE FINDINGS: Intraoperatively, the patient had at least 10 cm of subcutaneous fat. This did make every step of the procedure more lengthy and complicated. Retraction and presentation of t he acetabulum and femur was made more difficult. At least 1 hour was added to the operative time. T he patient's hip joint had complete loss of cartilage with osteophyte formation of subchondral sclero sis. ESTIMATED BLOOD LOSS: 300 cc. COMPLICATIONS: None. SPECIMENS: Femoral head and acetabular reaming sent to Pathology. HARDWARE USED: This is uncemented [place] total hip arthroplasty hardware. For the cup, a 52E Tride nt hemispherical shell, a single 60 mm screw. For the inserts, a polyethylene Trident X3 0 degree in sert, insert is 36E. For the femur, an Accolade TMZF size 5 with a 132-degree neck. For the head, a 36 -5 ceramic V40 Biolox delta ceramic femoral. DESCRIPTION OF PROCEDURE: Ms. Leon was identified in the preanesthesia unit. Her right lower extr emity was marked as the correct operative side. Informed consent was signed and placed in the chart. The patient was taken to the operating room and placed under general anesthesia. A Vogt catheter was placed. The patient was placed in the left lateral decubitus position on the pegboard. All bony prominences were well padded. Right lower extremity was prepped and draped in the usual sterile fas hion. Preop time-out was made to correctly identify the patient's side and site. Appropriate periop erative antibiotics were given within 1 hour of incision. A standard posterior hip incision was made with a 10-blade. Electrocautery was used to dissect down to the lateral fascial layer. Lateral fascial layer was incised in line with the skin incision. Sub cutaneous fat layer was at least 10 cm. A deep Charnley retractor was placed. The piriformis and con joint tendons were elevated off the posterolateral femur and tagged with #5 Ethibond. Next, electroc autery was used to make a standard posterior capsular flap, and this was also tagged with two #5 Ethi christian. The hip was carefully dislocated. The lesser troch to center of the femoral head was measured at 50 mm. Oscillating saw was used to make the appropriate femoral neck cut. Femoral head was mir bret. The femur was carefully retracted anteriorly. After appropriate placement of retractors, the a cetabulum was visualized. Long-handled knife was used to sharply remove any labrum from the acetabul ar rim. The acetabulum was sequentially reamed up to a size 51 reamer obtaining the bleeding subchon dral bone bed. A 51 trial had good fit with appropriate anteversion and abduction angle. Final impl ant chosen was a Trident 52E and this was impacted into the acetabulum without difficulty. The cup wa s stable and had appropriate anteversion and abduction angle. A single screw was placed in the super oposterior quadrant for extra stability. Liner chosen was a Trident X3 polyethylene insert 0 degree, 36E. This was impacted into the acetabulum without difficulty. The stability of the liner was chec ked and rechecked and noted to be stable. Attention was next turned to preparation of the femur. Presentation of the femur was made difficult by the morbid obese body habitus. Canal finder was used to enter the proximal femur. Femur was sequ entially broached up to a size 5. Size 5 broach head satisfactory fit, stability, and appropriate an teversion. A 132-neck trial was chosen as well as a 36 -5 head trial. Lesser troch to the center of the femoral head measured 52 mm. The hip was reduced and taken through range of motion. The hip wa s stable in all positions. There was appropriate soft tissue tension and leg lengths. The hip was c arefully dislocated. All trials were removed. Final implant chosen was an Accolade TMZF size 5 with a 132-degree neck. This was impacted into the femoral canal without difficulty. The stem was stable with appropriate anteversion. Biolox delta ceramic V40, femoral head 36 -5 was chosen as the femora l head. This was impacted onto the femoral neck. Final lesser troch to center of the femoral head m easured 52 mm. The hip was reduced and taken through range of motion. The hip was stable in all pos itions. The hip was copiously irrigated with sterile saline. Previously tagged capsule and tendon w ere reapproximated through 2 trochanteric drill holes. The hip was copiously irrigated with sterile saline once again. Lateral fascial layer was closed using interrupted #1 Vicryls. The rest of the i ncision was closed in a layered fashion using 0 and 2- 0 Vicryl. Closure did take at least extra 25 to 30 minutes because of the patient's body habitus. The rest of the incision was closed in a layere d fashion using 0 and 2-0 Vicryls. Skin was closed running 3-0 Monocryl and Dermabond. Sterile Adapt ic, 4x4s, and paper tape were used to cover the incision. The patient's anesthesia was reversed with out difficulty. She was taken to the PACU in stable condition. Intended weightbearing will be weigh tbearing as tolerated. Intended DVT prophylaxis will be Coumadin with a Lovenox bridge. [id number]/[facility] #: [id number]
[2018-08-19] MEDS: OXYCODONE 10 MG PO (00:27)
[2018-08-19] MEDS: [UNRECOGNIZED DRUG - OTHER] PO (00:27)
[2018-08-19 02:45] LABS: EGFR Non-African American 57.3 (>60)
[2018-08-19] MEDS: ACETAMINOPHEN PO PRN ×4 (05:30→21:25)
[2018-08-19] MEDS: OXYCODONE PO PRN ×4 (05:30→21:25)
[2018-08-19 05:56] LABS: Hematocrit 22 % (35-47); Hemoglobin 7.3 g/dl (12.0-16.0)
[2018-08-19 06:03] LABS: INR 1.02 (0.77-1.02)
[2018-08-19] MEDS: Calcium Carbonate CHEW TAB* 500 MG (TUMS) PO PRN (06:14)
[2018-08-19 06:15] LABS: EGFR Non-African American 61.7 (>60)
[2018-08-19] MEDS: Ascorbic Acid TAB* 500 MG PO SCH (08:18)
[2018-08-19] MEDS: Calcium/Vitamin D TAB 250/125* TAB PO SCH (08:18)
[2018-08-19] MEDS: Aspirin EC TAB* 81 MG TAB.EC PO SCH (08:18)
[2018-08-19] MEDS: DOCUSATE 100 MG PO SCH ×2 (08:18→21:26)
[2018-08-19] MEDS: Cholecalciferol TAB* 1000 UNITS PO SCH (08:18)
[2018-08-19] MEDS: Insulin LISPRO* 1 UNITS UNIT SUBCUT SCH ×4 (08:20→21:26)
--- NOTE | 2018-08-19 08:37 | PN ---
Progress Note - Progress Note Date of Service: 08/19/18 SOAP: Subjective: [Pt reports R hip pain is managed with po meds. Denies CP, SOB, calf pain. c/ o no appetite. Physical therapy going well.] Objective: [A and O x 3, NAD. Seated in chair receiving meds. ] R hip dressing changed - surgical wound benign. No drainage or erythema. Calves soft, NT, distal gross motor and NV function intact. Has been hyponatremic - on fluid restriction per hospitalist Vital Signs: Temp Pulse Resp BP Pulse Ox 98.8 F 82 18 120/53 96 08/19/18 04:36 08/19/18 04:36 08/19/18 08:22 08/19/18 04:36 08/19/18 04:36 Laboratory Results - last 24 hr 08/18/18 08/18/18 08/18/18 11:57 14:27 17:18 Hgb Hct INR (Anticoag Therapy) Sodium 126 L Potassium 3.7 Chloride 91 L Carbon Dioxide 23 Anion Gap 12 H BUN 22 Creatinine 1.10 H Est GFR ( Amer) 59.2 Est GFR (Non-Af Amer) 49.0 BUN/Creatinine Ratio 20.0 Glucose 207 H POC Glucose (mg/dL) 193 H 210 H Serum Osmolality Calcium 8.3 L TSH Cortisol Ur Random Sodium 08/18/18 08/18/18 08/18/18 18:00 20:24 20:47 Hgb Hct INR (Anticoag Therapy) Sodium 123 L Potassium 4.0 Chloride 90 L Carbon Dioxide 22 Anion Gap 11 BUN 20 Creatinine 0.98 H Est GFR ( Amer) 67.7 Est GFR (Non-Af Amer) 55.9 BUN/Creatinine Ratio 20.4 H Glucose 178 H POC Glucose (mg/dL) 195 H Serum Osmolality Calcium 8.0 L TSH Cortisol Ur Random Sodium < 18 08/19/18 08/19/18 08/19/18 02:20 05:30 05:30 Hgb 7.3 L Hct 22 L INR (Anticoag Therapy) 1.02 Sodium 121 L Potassium 4.2 Chloride 90 L Carbon Dioxide 28 Anion Gap 3 BUN 21 Creatinine 0.96 H Est GFR ( Amer) 69.3 Est GFR (Non-Af Amer) 57.3 BUN/Creatinine Ratio 21.9 H Glucose 177 H POC Glucose (mg/dL) Serum Osmolality Calcium 8.2 L TSH Cancelled Cortisol 12.72 Ur Random Sodium 08/19/18 08/19/18 08/19/18 05:30 05:30 05:30 Hgb Hct INR (Anticoag Therapy) Sodium 122 L Potassium 4.0 Chloride 90 L Carbon Dioxide 25 Anion Gap 7 BUN 21 Creatinine 0.90 Est GFR ( Amer) 74.7 Est GFR (Non-Af Amer) 61.7 BUN/Creatinine Ratio 23.3 H Glucose 180 H POC Glucose (mg/dL) Serum Osmolality 266 L Calcium 8.2 L TSH 0.33 L Cortisol Ur Random Sodium Assessment: [s/p R BETINA POD #2 Hyponatremia - likely dilutional] Plan: []PT/OT posterior hip precautions Monitor Sodium Medicin following INR 1.02, 6 mg Coumadin tonight
[2018-08-19] MEDS ORDERED: Furosemide TAB* 20 MG PO SCH (09:00)
[2018-08-19] MEDS: Enoxaparin(*) 30 MG/0.3 ML SYR SUBCUT SCH (13:09)
--- NOTE | 2018-08-19 15:49 | PN ---
Subjective Date of Service: 08/19/18 Interval History: Patient resting comfortably in chair. Reports pain with ambulation, but well controlled with current pain medication. Still with mild nausea/ "food unappealing." Patient denies chest pain, shortness of breath, dizziness. Objective Active Medications: Acetaminophen (Tylenol Tab*) 650 mg PO Q4H PRN PRN Reason: MILD PAIN or TEMP >= 101 F Ascorbic Acid (Vitamin C Tab*) 500 mg PO [facility] Last Admin: 08/19/18 08:18 Dose: 500 mg Aspirin (Aspirin Ec Tab*) 81 mg PO [facility] Last Admin: 08/19/18 08:18 Dose: 81 mg Bisacodyl (Dulcolax Supp*) 10 mg SC DAILY PRN PRN Reason: CONSTIPATION Calcium Carbonate (Tums*) 500 mg PO Q8H PRN PRN Reason: DYSPEPSIA Last Admin: 08/19/18 06:14 Dose: 500 mg Calcium/Vitamin D (Oscal D Tab 250/125*) 1 tab PO [facility] Last Admin: 08/19/18 08:18 Dose: 1 tab Cholecalciferol (Vitamin D Tab*) 5,000 units PO [facility] Last Admin: 08/19/18 08:18 Dose: 5,000 units Dextrose (D50w Syringe 50 Ml*) 12.5 gm IV PUSH .FOR FS < 60 - SS PRN PRN Reason: FS < 60 Diphenhydramine HCl (Benadryl Liq*) 12.5 mg PO Q4H PRN PRN Reason: ITCHING Diphenhydramine HCl (Benadryl Iv*) 12.5 mg IV Q4H PRN PRN Reason: ITCHING Docusate Sodium (Colace Cap*) 100 mg PO BID [facility] Last Admin: 08/19/18 08:18 Dose: 100 mg Enoxaparin Sodium (Lovenox(*)) 30 mg SUBCUT Q24H [facility] Last Admin: 08/19/18 13:09 Dose: 30 mg Insulin Human Lispro (Humalog*) 0 units SUBCUT [facility]; Protocol Last Admin: 08/19/18 13:09 Dose: 3 units Lactulose (Lactulose*) 30 ml PO Q6H PRN PRN Reason: CONSTIPATION Magnesium Hydroxide (Milk Of Magnesia Liq*) 30 ml PO Q6H PRN PRN Reason: CONSTIPATION Last Admin: 08/19/18 08:19 Dose: 30 ml Morphine Sulfate (Morphine Inj ((Syringe))*) 2 mg IV Q2H PRN PRN Reason: PAIN - SEVERE Ondansetron HCl (Zofran Inj*) 4 mg IV Q6H PRN PRN Reason: NAUSEA/VOMITING Last Admin: 08/18/18 09:06 Dose: 4 mg Oxycodone HCl (Roxycodone Tab*) 10 mg PO Q4H PRN PRN Reason: MODERATE PAIN Last Admin: 08/19/18 00:27 Dose: 10 mg Oxycodone/Acetaminophen (Percocet 5/325 Tab*) 1 tab PO Q4H PRN PRN Reason: PAIN - MILD Oxycodone/Acetaminophen (Percocet 5/325 Tab*) 2 tab PO Q4H PRN PRN Reason: PAIN - MODERATE Last Admin: 08/19/18 10:46 Dose: 2 tab Pharmacy Profile Note (Coumadin Daily Reminder*) 1 note FOLLOW UP 1700 [facility] Last Admin: 08/18/18 18:13 Dose: 1 note Warfarin Sodium (Coumadin Tab(*)) 6 mg PO ONCE@1700 [facility]; Protocol Stop: 08/19/18 17:01 Vital Signs - 8 hr 08/19/18 08/19/18 08/19/18 08:22 08:26 08:36 Temperature 97.9 F Pulse Rate 83 Respiratory 18 18 18 Rate Blood Pressure 112/43 (mmHg) O2 Sat by Pulse 97 Oximetry 08/19/18 08/19/18 10:46 12:01 Temperature 98.4 F Pulse Rate 87 Respiratory 16 16 Rate Blood Pressure 105/44 (mmHg) O2 Sat by Pulse 96 Oximetry Oxygen Devices in Use Now: None Eyes: No Scleral Icterus, PERRLA Ears/Nose/Mouth/Throat: NL Teeth, Lips, Gums, Clear Oropharnyx, Mucous Membranes Moist Neck: NL Appearance and Movements; NL JVP, Trachea Midline Respiratory: Symmetrical Chest Expansion and Respiratory Effort, Clear to Auscultation Cardiovascular: NL Sounds; No Murmurs; No JVD, No Edema Abdominal: NL Sounds; No Tenderness; No Distention Extremities: No Edema, - - Chronic venous stasis changes to bilateral lower extremeties Skin: No Rash or Ulcers Neurological: Alert and Oriented x 3, NL Muscle Strength and Tone Lines/Tubes/Other Access: Clean, Dry and Intact Peripheral IV Result Diagrams: 08/19/18 17:20 08/19/18 16:52 Assess/Plan/Problems-Billing Assessment: VANE is a 73 year old female with a PMH HTN, DM (non insulin dependent, on Januvia and Metformin), HTN, Breast Cancer s/p lumpectomy, leg swelling on lasix and HCTZ admitted for elective R total hip arthroplasty for end stage arthritis on 08/17. - Patient Problems (1) History of total right hip arthroplasty Current Visit: Yes Status: Acute Code(s): Z96.641 - PRESENCE OF RIGHT ARTIFICIAL HIP JOINT SNOMED Code(s): 790063456265 Comment: - POD 2. Plan per ortho. 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 Pt does not appear volume overloaded on exam. - Na dropped as low as 121. Serum osmolarity 266. Instituted fluid restriction to 1200mL. Rechecked 1500 and will f/u in AM. Pt without neuro symptoms. Denies headache, lethargy. (3) HTN (hypertension) Current Visit: No Status: Acute Code(s): I10 - ESSENTIAL (PRIMARY) HYPERTENSION SNOMED Code(s): 63174792 Comment: - No hypertension this admission. - Home BP medications on hold in setting of relative hypotension (Lisinopril 30mg, HCTZ 12.5mg daily, lasix 20mg). Has been maintianing MAPs > 60. Lastest BP 105/44. On fluid restriction in the setting of post-op hyponatremia. (4) Type II diabetes mellitus Current Visit: No Status: Acute Comment: - Home oral agents on hold - Continue lispro sliding scale for BMI > 30. Glucose better than yesterday with multiple readings in the low 200s. Today closer to 180 since changing dose to appropriate BMI. (5) SANJANA (acute kidney injury) Current Visit: Yes Status: Acute Code(s): N17.9 - ACUTE KIDNEY FAILURE, UNSPECIFIED SNOMED Code(s): 00652060 Comment: - Stable around 1. Will continue to monitor. In the setting of fluid restriction for hyponatermia - In the setting of soft BP yesterday (107/38) and decreased urine output ( 400mL today) (6) DVT prophylaxis Current Visit: No Status: Acute Code(s): MYE4227 - SNOMED Code(s): 172599817 Comment: - Lovenox 30mg Q24H with coumadin bridge. INR 0.98 today (7) Full code status Current Visit: No Status: Acute Code(s): Z78.9 - OTHER SPECIFIED HEALTH STATUS SNOMED Code(s): 966938913 Status and Disposition: Possible discharge tomorrow per ortho. Has requested referral to [facility] for [facility] and PT.
[2018-08-19] MEDS ORDERED: Warfarin TAB(*) 6 MG PO SCH (17:00)
[2018-08-19 17:17] LABS: EGFR Non-African American 50.6 (>60)
[2018-08-19 17:33] LABS: Hematocrit 23 % (35-47); Hemoglobin 7.8 g/dl (12.0-16.0)
[2018-08-20] MEDS: OXYCODONE 10 MG PO (00:06)
[2018-08-20] MEDS: [UNRECOGNIZED DRUG - OTHER] PO (00:06)
[2018-08-20] MEDS: Calcium Carbonate CHEW TAB* 500 MG (TUMS) PO PRN ×3 (00:09→21:41)
[2018-08-20] MEDS: OXYCODONE PO PRN ×5 (03:39→20:53)
[2018-08-20] MEDS: ACETAMINOPHEN PO PRN ×5 (03:39→20:53)
[2018-08-20 06:16] LABS: INR 1.56 (0.77-1.02)
[2018-08-20 06:17] LABS: Hematocrit 19 % (35-47); Hemoglobin 6.4 g/dl (12.0-16.0)
[2018-08-20 06:27] LABS: EGFR Non-African American 58.7 (>60)
[2018-08-20 06:45] LABS: Hematocrit 20 % (35-47); Hemoglobin 6.6 g/dl (12.0-16.0)
[2018-08-20] MEDS: Insulin LISPRO* 1 UNITS UNIT SUBCUT SCH ×4 (08:13→20:55)
[2018-08-20] MEDS: Cholecalciferol TAB* 1000 UNITS PO SCH (08:14)
[2018-08-20] MEDS: Aspirin EC TAB* 81 MG TAB.EC PO SCH (08:14)
[2018-08-20] MEDS: DOCUSATE 100 MG PO SCH ×2 (08:14→20:58)
[2018-08-20] MEDS: Calcium/Vitamin D TAB 250/125* TAB PO SCH (08:14)
[2018-08-20] MEDS: Ascorbic Acid TAB* 500 MG PO SCH (08:15)
--- NOTE | 2018-08-20 08:31 | PN ---
Subjective Date of Service: 08/20/18 Interval History: Ms. Leon reports feeling lightheaded this AM with ambulation. She also has heartburn which is a chronic issue for her that always occurs after she eats for which she takes tums. She denies chest pain, SOB, nausea, or abdominal pain. Objective Active Medications: Acetaminophen (Tylenol Tab*) 650 mg PO Q4H PRN Ascorbic Acid (Vitamin C Tab*) 500 mg PO QAM [facility] Aspirin (Aspirin Ec Tab*) 81 mg PO QAM [facility] Bisacodyl (Dulcolax Supp*) 10 mg [place] DAILY PRN Calcium Carbonate (Tums*) 500 mg PO Q8H PRN Calcium/Vitamin D (Oscal D Tab 250/125*) 1 tab PO QAM [facility] Cholecalciferol (Vitamin D Tab*) 5,000 units PO QAM [facility] Dextrose (D50w Syringe 50 Ml*) 12.5 gm IV PUSH .FOR FS < 60 - SS PRN Diphenhydramine HCl (Benadryl Liq*) 12.5 mg PO Q4H PRN Diphenhydramine HCl (Benadryl Iv*) 12.5 mg IV Q4H PRN Docusate Sodium (Colace Cap*) 100 mg PO BID [facility] Enoxaparin Sodium (Lovenox(*)) 30 mg SUBCUT Q24H [facility] Insulin Human Lispro (Humalog*) 0 units SUBCUT [facility]; Protocol Lactulose (Lactulose*) 30 ml PO Q6H PRN Magnesium Hydroxide (Milk Of Magnesia Liq*) 30 ml PO Q6H PRN Morphine Sulfate (Morphine Inj ((Syringe))*) 2 mg IV Q2H PRN Ondansetron HCl (Zofran Inj*) 4 mg IV Q6H PRN Oxycodone HCl (Roxycodone Tab*) 10 mg PO Q4H PRN Oxycodone/Acetaminophen (Percocet 5/325 Tab*) 1 tab PO Q4H PRN Oxycodone/Acetaminophen (Percocet 5/325 Tab*) 2 tab PO Q4H PRN Pharmacy Profile Note (Coumadin Daily Reminder*) 1 note FOLLOW UP 1700 [facility] Vital Signs: Temp Pulse Resp BP Pulse Ox 98.2 F 86 20 111/40 91 08/20/18 03:41 08/20/18 03:41 08/20/18 08:14 08/20/18 03:41 08/20/18 03:41 Oxygen Devices in Use Now: None Appearance: Female lying in bed in NAD Eyes: No Scleral Icterus Ears/Nose/Mouth/Throat: Mucous Membranes Moist Neck: Trachea Midline Respiratory: Symmetrical Chest Expansion and Respiratory Effort, Clear to Auscultation Cardiovascular: NL Sounds; No Murmurs; No JVD, No Edema Abdominal: NL Sounds; No Tenderness; No Distention Extremities: No Edema Skin: No Rash or Ulcers Neurological: Alert and Oriented x 3, NL Muscle Strength and Tone Nutrition: Taking PO's Result Diagrams: 08/20/18 06:31 08/20/18 05:34 Assess/Plan/Problems-Billing Assessment: Ms. Leon is a 73 year old female with a PMH HTN, DM (non insulin dependent, on Januvia and Metformin), HTN, Breast Cancer s/p lumpectomy, leg swelling on lasix and HCTZ admitted for elective R total hip arthroplasty for end stage arthritis on 08/17, who developed hyponatremia secondary to SIADH and postoperative anemia. - Patient Problems (1) History of total right hip arthroplasty Comment: - Surgery 08/17/18. - Hgb down to 6.6 this AM, suspect significantly related to intravascular fluid overload with SIADH. However, patient is lightheaded. Patient does have a history of DM and HTN, but no documented CAD. Plan for one unit PRBC now. - Pain well controlled, continue bowel regimen. - Continue PT and OT. (2) Hyponatremia Comment: - Na trending up, asymptomatic. Excellent urine output yesterday. - Likely secondary to SIADH in the setting of recent surgery. Pt does not appear volume overloaded on exam. - Continue fluid restriction, monitor (3) SANJANA (acute kidney injury) Comment: - Improved this AM - Continue fluid restriction for SIADH, avoid nephrotoxins. (4) HTN (hypertension) Comment: - SBP 100-110. - Hold lisinopril and hctz given SIADH and relatively low BPs. (5) Type II diabetes mellitus Comment: - BGs 160-200s. - Continue lispro SSI coverage for meals. Home oral agents on hold. (6) DVT prophylaxis Comment: - Lovenox 30mg Q24H with coumadin bridge. INR 0.98 today (7) Full code status Comment: Status and Disposition: Disposition per ortho.
--- NOTE | 2018-08-20 10:13 | PN ---
Progress Note - Progress Note Date of Service: 08/20/18 SOAP: Subjective: [Pain managed. c/o mild nausea associated with sausage she recently at. Denies dizziness, CP/SOB] Objective: [A and O x 3, NAD. Resting in bed R hip dressing C/D/I. thigh soft, calves soft, NT Distal gross motor, nv function intact Vital Signs: Temp Pulse Resp BP Pulse Ox 98.2 F 86 20 111/40 91 08/20/18 03:41 08/20/18 03:41 08/20/18 08:14 08/20/18 03:41 08/20/18 03:41 Laboratory Results - last 24 hr 08/19/18 08/19/18 08/19/18 11:51 16:50 16:52 Hgb Hct INR (Anticoag Therapy) Sodium 121 L Potassium 4.3 Chloride 89 L Carbon Dioxide 26 Anion Gap 6 BUN 26 H Creatinine 1.07 H Est GFR ( Amer) 61.2 Est GFR (Non-Af Amer) 50.6 BUN/Creatinine Ratio 24.3 H Glucose 217 H POC Glucose (mg/dL) 188 H 233 H Calcium 8.4 L Blood Type Antibody Screen Crossmatch 08/19/18 08/19/18 08/20/18 17:20 21:15 05:34 Hgb 7.8 L 6.4 L* Hct 23 L 19 L INR (Anticoag Therapy) Sodium Potassium Chloride Carbon Dioxide Anion Gap BUN Creatinine Est GFR ( Amer) Est GFR (Non-Af Amer) BUN/Creatinine Ratio Glucose POC Glucose (mg/dL) 200 H Calcium Blood Type Antibody Screen Crossmatch 08/20/18 08/20/18 08/20/18 05:34 05:34 06:31 Hgb 6.6 L Hct 20 L INR (Anticoag Therapy) 1.56 H Sodium 123 L Potassium 4.6 Chloride 92 L Carbon Dioxide 27 Anion Gap 4 BUN 26 H Creatinine 0.94 Est GFR ( Amer) 71.0 Est GFR (Non-Af Amer) 58.7 BUN/Creatinine Ratio 27.7 H Glucose 162 H POC Glucose (mg/dL) Calcium 8.7 Blood Type Antibody Screen Crossmatch 08/20/18 08/20/18 06:31 07:30 Hgb Hct INR (Anticoag Therapy) Sodium Potassium Chloride Carbon Dioxide Anion Gap BUN Creatinine Est GFR ( Amer) Est GFR (Non-Af Amer) BUN/Creatinine Ratio Glucose POC Glucose (mg/dL) 173 H Calcium Blood Type A Positive Antibody Screen Negative Crossmatch See Detail ] Assessment: [s/p R BETINA POD# 3 Hyponatremia - trending upward Low h/h] Plan: [PT/OT - posterior hip precautions I unit PRBC per medicine Monitor sodium - on fluid restriction INR 1.56 - 6 mg coumadin today. Possible D/C tomorrow]
[2018-08-20] MEDS: Enoxaparin(*) 30 MG/0.3 ML SYR SUBCUT SCH (12:04)
[2018-08-20] MEDS ORDERED: Warfarin TAB(*) 6 MG PO ONE (17:00)
[2018-08-21] MEDS: ACETAMINOPHEN PO PRN ×3 (02:17→14:23)
[2018-08-21] MEDS: OXYCODONE PO PRN ×3 (02:17→14:23)
[2018-08-21 05:42] LABS: Hematocrit 21 % (35-47); Hemoglobin 7.2 g/dl (12.0-16.0); Mean Platelet Volume 7.7 um3 (7.4-10.4); Platelet Count 125 10^3/ul (150-450)
[2018-08-21 05:45] LABS: INR 1.87 (0.77-1.02)
[2018-08-21 05:57] LABS: EGFR Non-African American 69.7 (>60)
[2018-08-21] MEDS: Aspirin EC TAB* 81 MG TAB.EC PO SCH (08:22)
[2018-08-21] MEDS: Calcium/Vitamin D TAB 250/125* TAB PO SCH (08:22)
[2018-08-21] MEDS: Ascorbic Acid TAB* 500 MG PO SCH (08:22)
[2018-08-21] MEDS: DOCUSATE 100 MG PO SCH (08:22)
[2018-08-21] MEDS: Cholecalciferol TAB* 1000 UNITS PO SCH (08:23)
[2018-08-21] MEDS: Insulin LISPRO* 1 UNITS UNIT SUBCUT SCH ×2 (08:24→12:21)
--- NOTE | 2018-08-21 08:43 | PN ---
Subjective Date of Service: 08/21/18 Interval History: Ms. Leon denies complaint this morning. She reports that she was up ambulating in her room without lightheadedness or dizziness. She denies chest pain, SOB, nausea, or abdominal pain. Objective Active Medications: Acetaminophen (Tylenol Tab*) 650 mg PO Q4H PRN Ascorbic Acid (Vitamin C Tab*) 500 mg PO QAM [facility] Aspirin (Aspirin Ec Tab*) 81 mg PO QAM [facility] Bisacodyl (Dulcolax Supp*) 10 mg IN DAILY PRN Calcium Carbonate (Tums*) 500 mg PO Q6H PRN Calcium/Vitamin D (Oscal D Tab 250/125*) 1 tab PO QAM [facility] Cholecalciferol (Vitamin D Tab*) 5,000 units PO QAM [facility] Dextrose (D50w Syringe 50 Ml*) 12.5 gm IV PUSH .FOR FS < 60 - SS PRN Diphenhydramine HCl (Benadryl Liq*) 12.5 mg PO Q4H PRN Diphenhydramine HCl (Benadryl Iv*) 12.5 mg IV Q4H PRN Docusate Sodium (Colace Cap*) 100 mg PO BID [facility] Enoxaparin Sodium (Lovenox(*)) 30 mg SUBCUT Q24H [facility] Insulin Human Lispro (Humalog*) 0 units SUBCUT [facility]CHS [facility]; Protocol Lactulose (Lactulose*) 30 ml PO Q6H PRN Magnesium Hydroxide (Milk Of Magnesia Liq*) 30 ml PO Q6H PRN Morphine Sulfate (Morphine Inj ((Syringe))*) 2 mg IV Q2H PRN Ondansetron HCl (Zofran Inj*) 4 mg IV Q6H PRN Oxycodone HCl (Roxycodone Tab*) 10 mg PO Q4H PRN Oxycodone/Acetaminophen (Percocet 5/325 Tab*) 1 tab PO Q4H PRN Oxycodone/Acetaminophen (Percocet 5/325 Tab*) 2 tab PO Q4H PRN Pharmacy Profile Note (Coumadin Daily Reminder*) 1 note FOLLOW UP 1700 [facility] Vital Signs: Temp Pulse Resp BP Pulse Ox 98.6 F 79 16 132/53 99 08/21/18 07:24 08/21/18 07:24 08/21/18 07:24 08/21/18 07:24 08/21/18 07:24 Oxygen Devices in Use Now: None Appearance: Female lying in bed in NAD Eyes: No Scleral Icterus Ears/Nose/Mouth/Throat: Mucous Membranes Moist Neck: Trachea Midline Respiratory: Symmetrical Chest Expansion and Respiratory Effort, Clear to Auscultation Cardiovascular: NL Sounds; No Murmurs; No JVD, No Edema Abdominal: NL Sounds; No Tenderness; No Distention Extremities: No Edema Skin: No Rash or Ulcers Neurological: Alert and Oriented x 3, NL Muscle Strength and Tone Nutrition: Taking PO's Result Diagrams: 08/21/18 05:15 08/21/18 05:15 Assess/Plan/Problems-Billing Assessment: Ms. Leon is a 73 year old female with a PMH HTN, DM (non insulin dependent, on Januvia and Metformin), HTN, Breast Cancer s/p lumpectomy, leg swelling on lasix and HCTZ admitted for elective R total hip arthroplasty for end stage arthritis on 08/17, who developed hyponatremia secondary to SIADH and postoperative anemia. - Patient Problems (1) History of total right hip arthroplasty Comment: - Surgery 08/17/18. - Hgb up to 7.2 after one unit PRBC, suspect significantly related to intravascular fluid overload with SIADH. Patient asymptomatic. - Pain well controlled, continue bowel regimen. - Continue PT and OT. (2) Hyponatremia Comment: - Resolving appropriately. - SIADH in the setting of recent surgery. - Continue fluid restriction, monitor (3) SANJANA (acute kidney injury) Comment: - Resolved - Continue fluid restriction for SIADH, avoid nephrotoxins. (4) HTN (hypertension) Comment: - SBP 110-130s. - Hold lisinopril and hctz given SIADH and relatively low BPs. - Could resume lisinopril tomorrow, resume hctz after follow up with PCP and recheck BMP. (5) Type II diabetes mellitus Comment: - BGs 100-140s. - Resume home meds at discharge (6) DVT prophylaxis Comment: - Lovenox 30mg Q24H with coumadin bridge. INR 0.98 today (7) Full code status Comment: Status and Disposition: Disposition per ortho. Anticipate discharge to home today.
[2018-08-21] MEDS: Calcium Carbonate CHEW TAB* 500 MG (TUMS) PO PRN ×2 (08:55→14:23)
[2018-08-21] MEDS: Enoxaparin(*) 30 MG/0.3 ML SYR SUBCUT SCH (12:21)
[2018-08-21 13:30] VITALS: BP 150/56
--- NOTE | 2018-08-21 14:29 | PN ---
Progress Note - Progress Note Date of Service: 08/21/18 SOAP: Subjective: []Patient seen and examined at bedside. She feels well and desires DC home today. Denies chest pain, shortness of breath, dizziness, nausea. Objective: []General: NAD RLE: dressing changed, incision CDI without surrounding erythema. DF/PF intact. Dp2+. Sensation intact distally Calves supple and nontender without erythema, edema or palpable cords Assessment: [] s/p R BETINA Hyponatremia - trending upward acute bloodloss anemia improved Plan: [PT/OT - posterior hip precautions Monitor sodium - continue fluid restriction continue lovenox, coumadin Possible D/C today Vital Signs Temp 98.6 F 08/21/18 11:48 Pulse 80 08/21/18 11:48 Resp 16 08/21/18 14:23 BP 150/56 08/21/18 11:48 Pulse Ox 96 08/21/18 11:48 Intake & Output 08/21/18 08/22/18 08/22/18 18:59 06:59 18:59 Intake Total 120 Output Total 500 Balance -380 Intake: Oral 120 Output: Urine 500 Laboratory Last Values Hgb 7.2 g/dl (12.0-16.0) L 08/21/18 05:15 Hct 21 % (35-47) L 08/21/18 05:15 Plt Count 125 10^3/ul (150-450) L 08/21/18 05:15 MPV 7.7 um3 (7.4-10.4) 08/21/18 05:15 INR (Anticoag Therapy) 1.87 (0.77-1.02) H 08/21/18 05:15 Sodium 128 mmol/L (135-145) L 08/21/18 05:15 Potassium 4.5 mmol/L (3.5-5.0) 08/21/18 05:15 Chloride 97 mmol/L (101-111) L 08/21/18 05:15 Carbon Dioxide 28 mmol/L (22-32) 08/21/18 05:15 Anion Gap 3 mmol/L (2-11) 08/21/18 05:15 BUN 19 mg/dL (6-24) 08/21/18 05:15 Creatinine 0.81 mg/dL (0.51-0.95) 08/21/18 05:15 Est GFR ( Amer) 84.3 (>60) 08/21/18 05:15 Est GFR (Non-Af Amer) 69.7 (>60) 08/21/18 05:15 BUN/Creatinine Ratio 23.5 (8-20) H 08/21/18 05:15 Glucose 141 mg/dL (70-100) H 08/21/18 05:15 POC Glucose (mg/dL) 181 mg/dL (70-100) H 08/21/18 11:58 Serum Osmolality 266 mOsm/kg (275-295) L 08/19/18 05:30 Calcium 8.7 mg/dL (8.6-10.3) 08/21/18 05:15 TSH 0.33 mcIU/mL (0.34-5.60) L 08/19/18 05:30 Cortisol 12.72 mcg/dL 08/19/18 02:20 Ur Random Creatinine 121.60 mg/dL 08/19/18 08:30 Ur Random Sodium < 18 mmol/L 08/19/18 08:30 Blood Type A Positive 08/20/18 06:31 Antibody Screen Negative 08/20/18 06:31 Crossmatch See Detail 08/20/18 06:31
--- NOTE | 2018-08-23 05:52 | DS ---
DISCHARGE SUMMARY: DATE OF ADMISSION: 08/17/18 DATE OF DISCHARGE: 08/21/18 ATTENDING PROVIDER: Alejandra Castanon MD * (DICTATED BY JOVANNI YOU) PRE-OP DIAGNOSIS: Severe end-stage degenerative osteoarthritis of the right hip joint with morbid obesity. OPERATIVE PROCEDURE: Right total hip arthroplasty plus modifier for added operative time at least 1 hour because of morbid obesity. HISTORY: Ms. Leon is a 73-year-old female with years of increasingly severe right hip pain. She failed conservative management and elected to undergo a right total hip arthroplasty. The patient was admitted to [facility] on 08/17/18. She underwent a right total hip arthroplasty without complication. She was also seen by our hospitalist service during her stay. She did have acute blood loss anemia during her stay for which she received 1 unit of packed red blood cells as well as hyponatremia for which she is on a fluid restriction. On 08/20/18, her hemoglobin was 6.4, hematocrit 19. By the day of discharge on 08/21/18, hemoglobin was 7.2 and hematocrit was 21. The patient was asymptomatic. On 08/19/18, sodium was 121; by day of discharge on 08/21/18, it is 128. On 08/21/18, the patient is well appearing, in no acute distress. Dressing was changed. Incision was clean, dry, and intact. Dorsiflexion and plantarflexion intact. Sensation intact distally. DP pulse 2+ . She was deemed to be medically and orthopedically stable for discharge to home. DISCHARGE MEDICATIONS: 1. Vitamin C 1 tab p.o. q.a.m. 2. Metformin 500 mg p.o. b.i.d. 3. Lisinopril 30 mg p.o. q.a.m. It was discontinued until restarted by her primary care. 4. Furosemide 20 mg q.a.m. 5. Aspirin 81 mg p.o. q.a.m. 6. Hydrochlorothiazide 12.5 mg p.o. q.a.m. 7. Potassium 99 mg p.o. q.a.m. 8. Discontinued tramadol. 9. Vitamin D3 5000 units p.o. q.a.m. 10. Sitagliptin 50 mg p.o. q.a.m. 11. Ibuprofen was discontinued at home. 12. Calcium with D3 600 of calcium daily. New meds: 1. Acetaminophen 650 mg p.o. q.4 hours p.r.n., max daily dose of 4000 mg from all sources. 2. Docusate 100 mg p.o. b.i.d. 3. Percocet 5/325 one to two tabs every 4 to 6 hours as needed for pain, max daily dose of 10. 4. Warfarin 2 mg tabs, 1 to 3 tabs daily, dose depends on INR. The patient is taking her lisinopril normally, it is 30 mg daily and then she will hold her hydrochlorothiazide until her follow up with Dr. Adames. DISCHARGE INSTRUCTIONS: Weightbearing as tolerated. Hip precautions. Dosing of Coumadin is going to be 4 mg daily between 08/21/18 and 08/23/18, recheck for further dosing instructions. Pain control, Percocet 5/325 one to two tabs every 4 to 6 hours as needed for pain, max of 10 tabs per day. Follow up with Dr. Castanon in 10 to 14 days. Hold your hydrochlorothiazide until your follow up with Dr. Adames. Resume lisinopril on 08/22/18. JOVANNI YOU [id number]/CPS #: [id number] MTDD
== END 2018-08-21 16:40 | disposition home health service (06) | DRG 301 ==
LOC: AA 10:40 → SSU 17:45
PROVIDERS: ADMIT Orthopaedic Surgery Adult Reconstructive Orthopaedic Surgery; ATTEND Orthopaedic Surgery Adult Reconstructive Orthopaedic Surgery
PROC: 30233N1 Transfusion of Nonautologous Red Blood Cells into Peripheral Vein, Percutaneous Approach (ICD-10-PCS; principal; 2018-08-20)
PROC: 0SR904A Replacement of Right Hip Joint with Ceramic on Polyethylene Synthetic Substitute, Uncemented, Open Approach (ICD-10-PCS; 2018-08-20)
DX: M16.11 Unilateral primary osteoarthritis, right hip (principal); N17.9 Acute kidney failure, unspecified; D62 Acute posthemorrhagic anemia; E22.2 Syndrome of inappropriate secretion of antidiuretic hormone; I10 Essential (primary) hypertension; K21.9 Gastro-esophageal reflux disease without esophagitis; E78.5 Hyperlipidemia, unspecified; I83.90 Asymptomatic varicose veins of unspecified lower extremity; E55.9 Vitamin D deficiency, unspecified; E11.36 Type 2 diabetes mellitus with diabetic cataract; Z96.652 Presence of left artificial knee joint; C50.011 Malignant neoplasm of nipple and areola, right female breast; I95.9 Hypotension, unspecified; R11.0 Nausea; R12 Heartburn; E11.40 Type 2 diabetes mellitus with diabetic neuropathy, unspecified; J44.9 Chronic obstructive pulmonary disease, unspecified; E66.01 Morbid (severe) obesity due to excess calories; M25.751 Osteophyte, right hip; Q66.6 Other congenital valgus deformities of feet; Z92.3 Personal history of irradiation; Z80.3 Family history of malignant neoplasm of breast; Z91.040 Latex allergy status; Z91.048 Other nonmedicinal substance allergy status; Z83.3 Family history of diabetes mellitus; Z82.3 Family history of stroke; Z82.49 Family history of ischemic heart disease and other diseases of the circulatory system; Z84.1 Family history of disorders of kidney and ureter; Z68.34 Body mass index [BMI] 34.0-34.9, adult
CPT/HCPCS: 36415; 80048; 82533; 82570; 83930; 84300; 84443; 85014; 85018; 85049; 85610; 86850; 86900; 86901; 86922; A9270-GY; C1713; C1776; G8978-GP-CJ; G8978-GP-CK; G8979-GP-CI; G8987-GO-CJ; G8988-GO-CI; J0690; J1100; J1170; J1650; J1885; J2250; J2405; J2704; J2795; J3010; P9040

== ENCOUNTER 2018-10-29 14:11 | Inpatient (IN) | payer BC ==
--- OUTSIDE RECORDS SUMMARY | 2018-10-29 15:55 | XMS REPORT | Continuity of Care Document ---
:1945 External Reference #:[id number] Author Name Darleen aGmbino Care Team Providers Name Role Phone Odalys Adames MD Primary Care Physician Unavailable Payers Type Date Identification Numbers Payment Provider Subscriber Policy Number: [id number] [facility] Ppo Ashia Herrera Group Number: [id number] [address] [address] PayID: [id number] BRAULIO Garcia [id number] Effective: 2017 Policy Number: [id number] [employer] Ashia Herrera Onset: 2017 Group Name: [id number] [address] PayID: [id number] [place] [address] Advance Directives Description No Information Available Problems Date Description Provider Status Onset: 09/25/2018 Prosthetic arthroplasty of the hip Alejandra Castanon M.D. Active Onset: 07/07/2018 Arthroplasty of knee Alejandra Castanon M.D. Active Onset: 07/07/2018 Localized, primary osteoarthritis of the Alejandra Castanon M.D. Active pelvic region and thigh Onset: 07/07/2018 Localized, primary osteoarthritis Alejandra Castanon M.D. 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 as needed pain Lisinopril 10/26 Active Tablets 30mg 30tab 1 by mouth s every day MD Jac Januvia 10/26 Active Tablets 30mg 90tab 1 by mouth s every day MD Jac Metformin HCL Active Tablets 500mg 1 by mouth Unknown /0000 twice a day Furosemide Active Tablets 20mg 1 by mouth Unknown /0000 every day Hydrochlorothiazid Active Capsules 12.5mg 1 by mouth Unknown e /0000 every day Ibuprofen Active Tablets 200mg 4 tabs by Unknown /0000 mouth as needed Oxycodone HCL Active Unknown /0000 Colace 08/21 Hx Capsules 100mg 90cap 1 tab every Alejandra s 12 hours as Lg, - needed for M.D. 09/24 constipatio n Warfarin Sodium 08/21 Hx Tablets 2mg 90tab 1-3 tabs ( s 2-6 mg) Lg, - daily, M.D. 09/24 determined by inr dose Oxycodone-Acetamin 08/21 Hx Tablets 5-325mg 70tab 1-2 by s mouth every Lg, - 4-6 hours M.D. 09/24 as needed for post-op pain. max 10 per day Aspirin 81 Low Hx 1 by mouth Unknown Dose /0000 every day - 08/06 Coral Calcium Hx Capsules 1500mg 2 tabs Unknown /0000 daily - 08/05 Vitamin D3 Hx Capsules 5000Unit 1 by mouth Unknown /0000 every day - 08/06 Vitamin C Hx 1 tab by Unknown /0000 mouth once - a day 08/06 Potassium 00 Hx Tablets 99mg once a day Unknown /0000 - 08/06 Tramadol HCL Hx Tablets 50mg 1-2 tablets Unknown /0000 every 6 - hours as 09/24 Ibuprofen Hx Tablets 200mg as needed Unknown /0000 - 08/06 Immunizations Description No Information Available Vital Signs Date Vital Result Comment 10/18/2018 10:05am Height 68 inches 5'8" Heart Rate 115 /min BP Systolic 142 mmHg BP Diastolic 74 mmHg Body Temperature 99.5 F Pain Level 0 09/25/2018 10:28am Height 68 inches 5'8" Weight 220.00 lb Heart Rate 76 /min BP Systolic Sitting 180 mmHg Rue lg cuff BP Diastolic Sitting 100 mmHg Rue lg cuff Pain Level 0 BMI (Body Mass Index) 33.4 kg/m2 08/28/2018 10:34am Height 68 inches 5'8" Weight 220.00 lb BP Systolic 146 mmHg BP Diastolic 76 mmHg Body Temperature 98.2 F Pain Level 4 BMI (Body Mass Index) 33.4 kg/m2 08/14/2018 8:59am Height 68 inches 5'8" Heart Rate 72 /min BP Systolic 122 mmHg left arm large cuff BP Diastolic 70 mmHg left arm large cuff Respiratory Rate 16 /min Body Temperature 97.6 F Pain Level 4 08/07/2018 9:07am Height 68 inches 5'8" Weight 224.00 lb Heart Rate 72 /min BP Systolic 144 mmHg BP Diastolic 82 mmHg BMI (Body Mass Index) 34.1 kg/m2 07/07/2018 9:13am Height 68.5 inches 5'8.50" Weight 223.00 lb Heart Rate 76 /min BP Systolic Sitting 144 mmHg BP Diastolic Sitting 70 mmHg Respiratory Rate 16 /min Pain Level 7 BMI (Body Mass Index) 33.4 kg/m2 03/21/2018 1:07pm Height 68.5 inches 5'8.50" Heart Rate 81 /min BP Systolic 136 mmHg BP Diastolic 88 mmHg Respiratory Rate 16 /min Body Temperature 98.6 F Pain Level 2 02/21/2018 1:28pm Height 68.5 inches 5'8.50" Weight 240.00 lb Heart Rate 85 /min Respiratory Rate 15 /min Body Temperature 97.9 F Pain Level 2 BMI (Body Mass Index) 36.0 kg/m2 01/31/2018 1:06pm Height 68.5 inches 5'8.50" Weight 240.00 lb Heart Rate 77 /min BP Systolic 142 mmHg BP Diastolic 84 mmHg Respiratory Rate 15 /min Body Temperature 98.6 F Pain Level 1 BMI (Body Mass Index) 36.0 kg/m2 01/03/2018 1:13pm Height 68.5 inches 5'8.50" Heart Rate 97 /min BP Systolic 148 mmHg BP Diastolic 84 mmHg Respiratory Rate 16 /min Body Temperature 98.7 F Pain Level 2 12/02/2017 10:02am Height 68.5 inches 5'8.50" Heart Rate 62 /min Respiratory Rate 20 /min Body Temperature 97.8 F Pain Level 0 10/26/2017 8:31am Height 68.5 inches 5'8.50" Weight 240.00 lb BP Systolic 150 mmHg BP Diastolic 82 mmHg Body Temperature 97.7 F Pain Level 5 BMI (Body Mass Index) 36.0 kg/m2 Results Test Date Facility Test Result H/L Range Note Urinalysis Profile 08/07/2018 [facility] Urine Color Straw [address] [place] [address] [phone] Urine Appearance Clear Urine Specific [place] 1.005 Low 1.010-1.030 Urine pH 7.0 N 5-9 Urine Urobilinogen Negative Negative Urine Ketones Negative Negative Urine Protein Negative Negative Urine Leukocytes 1+ Abnormal Negative Urine Blood Negative Negative Urine Nitrite Negative Negative Urine Bilirubin Negative Negative Urine Glucose Negative Negative Urine White Blood Cell Trace(0-5/hpf) Absent Urine Red Blood Cell Trace(0-2/hpf) Absent Urine Bacteria Absent Absent Urine Squamous Epithelial Cell Present Abnormal Absent Inr/Protime 08/07/2018 [facility] Inr 0.87 N 0.77-1.[address] [place], [place] [id number] [phone] Laboratory test 08/07/2018 [facility] Partial 30.1 seconds N 26.0-36.[address] [place] [address] PTT [phone] Type & Screen 08/07/2018 [facility] Patient A Positive [address] Blood Type [place], [place] [id number] [phone] Antibody Screen NEGATIVE Urine Culture And 08/07/2018 [facility] Urine Culture SEE RESULT [address] [place], [place] [id number] [phone] Laboratory test 02/13/2018 [facility] Point of Care 134 mg/dL High 70-1 [address] Glucose 00 [place] [address] [phone] Laboratory test 01/23/2018 [facility] Point of Care 133 mg/dL High 70-1 [address] Glucose 00 [place] [address] [phone] Laboratory test 10/24/2017 [facility] Surgical SEE RESULT [address] [place] [address] [phone] Wound 04/11/2017 [facility] Wound/Misc SEE RESULT 5 Culture/Sensi [address] Culture[place] [address] Stain [phone] Wound 03/03/2017 [facility] Wound/Misc SEE RESULT 6, 7 Culture/Sensi [address] [place] [address] Stain [phone] 1 SEE RESULT BELOW Name: ASHIA HERRERA : [address]: Alejandra Castanon MD Acct: [id number] Unit: [id number] AGE: 73 Location: [facility] Re08/07/18 SEX: F Status: REG REF SPEC: [id number] LUKE: 08/07/18-[address]: Alejandra Castanon MD REQ: [id number] RECD: 08/07/18 STATUS: COMP _ SOURCE: URINE SPDESC: ORDERED: Urine Culture QUERIES: Urine Source: Clean Catch Procedure Result Reported Site Urine Culture Final 08/08/18- 1246 ML No growth of clinically significant organisms * ML - Main Lab . END OF REPORT DEPARTMENT OF PATHOLOGY, [address] [place] [address] Richard Browning M.D. Director [facility] # [id number] 2 Boxing Inspector: [id number] Boxing Inspector: [id number] 4 SEE RESULT BELOW Name: ASHIA HERRERA : [address]: Amina Solomon MD Acct: [id number] Unit: [id number] AGE: 72 Location: WOUND Re10/24/17 SEX: F Status: REG REF SPEC: [id number] LUKE: 10/24/17 [facility] DR: Amina Solomon MD REQ: [id number] RECD: 10/24/17 STATUS: JUAN ESTRADA DR: Ashlee [...] performed at Main Lab DEPARTMENT OF PATHOLOGY, [address] [place] [address] Richard Browning M.D. Director [facility] # [id number] 5 SEE RESULT BELOW Name: ASHIA HERRERA : [address]: Ashlee Arvizu MD Acct: [id number] Unit: [id number] AGE: 71 Location: WOUND Re04/11/17 SEX: F Status: REG REF SPEC: [id number] LUKE: 04/11/[address]: Ashlee Arvizu MD REQ: [id number] RECD: 04/11/17 STATUS: TYLOR ESTRADA DR: Blanca Adames MD _ SOURCE: FOOT,LEFT [...] for recollect. * ML - MAIN LAB ([facility]) . END OF REPORT * ML=Testing performed at Main Lab DEPARTMENT OF PATHOLOGY, [address] [place] [address] Richard Browning M.D. Director [facility] # [id number] 6 LEFT MEDIAL FOOT ULCER 7 SEE RESULT BELOW Name: ASHIA HERRERA : [address]: Ashlee Arvizu MD Acct: [id number] Unit: [id number] AGE: 71 Location: WOUND Re03/03/17 SEX: F Status: REG REF SPEC: [id number] LUKE: 03/03/17 [facility] DR: Blanca Castro NP REQ: [id number] RECD: 03/03/17 STATUS: TYLOR ESTRADA DR: Ashlee Adames MD _ SOURCE: FOOT,LEFT SPDESC: ORDERED: Culture Stain COMMENTS: LEFT MEDIAL FOOT ULCER QUERIES: Specimen Description RED SWAB Procedure Result Reported Site Wound/Misc Gram Stain Final 03/03/17- 1059 ML 1+ Epithelial Cells 3+ Neutrophils 1+ Gram Positive Bacilli Wound/Misc Culture Final 03/05/17- 08 ML Organism 1 NORMAL NNEKA Quantity 1+ * ML - MAIN LAB ([facility]) . END OF REPORT * ML=Testing performed at Main Lab DEPARTMENT OF PATHOLOGY, [address] [place] [address] Richard Browning M.D. Director [facility] # [id number] Procedures Date Code Description Status 08/17/2018 91921 THR Total Hip Replacement Completed 08/17/2018 89047 THR Total Hip Replacement Completed 02/13/2018 07064 Carpal Tunnel Release Completed 02/13/2018 58583 Carpal Tunnel Release Completed 02/13/2018 31490 Carpal Tunnel Release Completed 01/23/2018 86458 Carpal Tunnel Release Completed 01/23/2018 73592 Carpal Tunnel Release Completed 01/23/201802567 Carpal Tunnel Release Completed 10/26/2017 Aspiration &/Or Inj Of Ganglion Cyst(S) Any Location Completed 10/26/2017 Aspiration &/Or Inj Of Ganglion Cyst(S) Any Location Completed 10/26/2017 Aspiration &/Or Inj Of Ganglion Cyst(S) Any Location Completed 10/24/2017 77247 Removal Devitalization Tissue Wound Less Than Equal 20 [address] Square CM 03/28/2017 69085 Removal Devitalization Tissue Wound Less Than Equal [address] CM 03/07/2017 47843 Removal Devitalized Tissue Wound Greater Than 20 Square Completed CM 03/07/2017 15386 Removal Devitalization Tissue Wound Less Than Equal [address] CM 03/03/2017 43829 Removal Devitalization Tissue Wound Less Than Equal [address] CM 10/06/2015 55978100 Mammogram Completed 09/25/2015 81328072 Mammogram Completed 11/17/2012 45496610 Mammogram Completed 11/14/2012 75816322 Mammogram Completed 03/08/2012 69162927 Mammogram Completed Encounters Type Date Location Provider Dx Diagnosis Office Visit 08/21/2018 Maxine Daly N.Deborah Z47.1 Aftercare 11:30a Assoc,pc following joint Hospitalists replacement surgery Z96.641 Presence of right artificial hip joint E87.1 Hypo-osmolality and hyponatremia N17.9 Acute kidney failure, unspecified I10 Essential (primary) hypertension E11.9 Type 2 diabetes mellitus without complications Office Visit 08/20/2018 11:30a Maxine Daly Z47.1 Aftercare Assoc,pc N.P. following joint Hospitalists replacement surgery Z96.641 Presence of right artificial hip joint E87.1 Hypo-osmolality and hyponatremia N17.9 Acute kidney failure, unspecified I10 Essential (primary) hypertension E11.9 Type 2 diabetes mellitus without complications Office Visit 08/19/2018 Maxine Rojas Z47.1 Aftercare 11:29a Assoc,davidson Mathis NP following joint Hospitalists replacement surgery Z96.641 Presence of right artificial hip joint E87.1 Hypo-osmolality and hyponatremia I10 Essential (primary) hypertension E11.9 Type 2 diabetes mellitus without complications N17.9 Acute kidney failure, unspecified Office Visit 08/18/2018 [facility] Crystal Z96.641 Presence of 11:23a Assoc,davidson Mathis NP right artificial Hospitalists hip joint Z47.1 Aftercare following joint replacement surgery I10 Essential (primary) hypertension E11.9 Type 2 diabetes mellitus without complications E87.1 Hypo-osmolality and hyponatremia N17.9 Acute kidney failure, unspecified Office Visit 08/17/2018 11:07a [facility] Frantz Rebollar, E11.9 Type 2 diabetes Assoc,davidson MD mellitus without Hospitalists complications Z85.3 Personal history of malignant neoplasm of breast I10 Essential (primary) hypertension Z96.641 Presence of right artificial hip joint Office Visit 08/14/2018 9:15a [facility] Alejandra Castanon, M25.561 Pain in right Of C.M.A. M.D. knee M17.11 Unilateral primary osteoarthritis, right knee M25.461 Effusion, right knee S21.002A Unspecified open wound of left breast, initial encounter Office Visit 07/07/2018 9:00a [facility] Alejandra Castanon, M25.561 Pain in right Of C.M.A. M.D. 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 bilateral upper limbs Office Visit 10/26/2017 8:00a [facility]opedic Paul M67.441 Ganglion, right Services Of MD Jac hand C.M.A. 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 L97.822 Non-prs chronic ulcer oth prt l low leg w fat layer exposed I87.313 Chronic venous hypertension w ulcer of bilateral low extrm I10 Essential (primary) hypertension Office Visit 03/07/2017 12:10p Wound Care Blanca Castro E11.621 Type 2 diabetes Center [place] [facility] [place]IDI RN, TAMPER OPERATOR-BC mellitus with foot ulcer L97.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 L97.822 Non-prs chronic ulcer oth prt l low leg w fat layer exposed R60.0 Localized edema M79.662 Pain in left lower leg I87.2 Venous insufficiency (chronic) (peripheral) Office Visit 03/03/2017 10:55a Wound Care Blanca Castro E11.621 Type 2 diabetes Center [place] [facility]IDI RN, TAMPER OPERATOR-BC mellitus with foot ulcer L97.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 left lower limb Diseases Z96.652 Presence of left artificial knee joint Office Visit 06/30/2016 [facility] Alysha Boo L03.116 Cellulitis of 2:18p davidson De Guzman M.D. 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 at [facility]10/18/2018 - Alejandra Catsanon M.D.M25.551 Pain in right hipFollow up:Follow up: 4 npbmfW12.641 Presence of right artificial hip zzyanF87.1 Aftercare following joint replacement surgery
--- NOTE | 2018-10-29 16:55 | ED ---
Back Pain - HPI Summary HPI Summary: Pt is a 73 year old F presenting to the ED with a chief complaint of back pain due to a new physical therapy machine she used. She was going for hip pain, it was helping, and then right before thanksgiving hurt her back at her appointment. Patient states the pain does not radiate but she was nauseous a couple days ago. Patient denies pain with urination, recent bowel movements, or vomiting. - History of Current Complaint Chief Complaint: EDBackInjuryPain Stated Complaint: LOW BACK PAIN Time Seen by Provider: 10/29/18 16:34 Hx Obtained From: Patient Onset/Duration: Sudden Onset, Lasting Days, Still Present Onset/Duration: Started Days Ago, Still Present Timing: Constant Severity Initially: Moderate Severity Currently: Moderate Pain Intensity: 0 Pain Scale Used: 0-10 Numeric Character: Sharp Aggravating Symptom(s): Movement, Lifting, Bending, Walking Alleviating Symptom(s): Rest Associated Signs And Symptoms: Positive: Pain with Weight Bearing - Allergies/Home Medications Allergies/Adverse Reactions: Allergies Allergy/AdvReac Type Severity Reaction Status Date / Time latex Allergy Severe Rash Verified 10/29/18 22:19 adhesive Allergy Intermediate Rash Verified 10/29/18 22:19 Home Medications: Home Medications Ibuprofen TAB* [Advil TAB*] 200 mg PO Q6H PRN 10/30/18 [History Confirmed ] PMH/Surg Hx/FS Hx/Imm Hx Previously Healthy: No Endocrine/Hematology History: Reports: Hx Anticoagulant Therapy - Aspirin., Hx Diabetes Denies: Hx Thyroid Disease Cardiovascular History: Reports: Hx Hypertension - DAILY MEDS, Hx Peripheral Vascular Disease Denies: Hx Congestive Heart Failure, Hx Deep Vein Thrombosis, Hx Myocardial Infarction, Hx Pacemaker/ICD Respiratory History: Denies: Hx Asthma, Hx Chronic Obstructive Pulmonary Disease (COPD), Hx Lung Cancer, Hx Pneumonia, Hx Pulmonary Embolism GI History: Reports: Hx Gastroesophageal Reflux Disease - NO MEDS Denies: Hx Gall Bladder Disease, Hx Gastrointestinal Bleed, Hx Ulcer, Hx Urosepsis History: Denies: Hx Kidney Stones, Hx Renal Disease Musculoskeletal History: Reports: Hx Arthritis - KNEES, HANDS Sensory History: Reports: Hx Cataracts - BILAT, Hx Contacts or Glasses - READING Denies: Hx Hearing Aid Opthamlomology History: Reports: Hx Cataracts - BILAT, Hx Contacts or Glasses - READING Neurological History: Denies: Hx Dementia, Hx Migraine, Hx Seizures, Hx Transient Ischemic Attacks (TIA) Psychiatric History: Denies: Hx Anxiety, Hx Depression, Hx Panic Disorder - LAYING ON BELLY IS UNCOMFORTABLE BUT WILL TRY BEST, Hx Schizophrenia, Hx Bipolar Disorder - Cancer History Cancer Type, Location and Year: breast ca x 3 left breast Hx Chemotherapy: No Hx Radiation Therapy: Yes - BREAST, 1ST TIME 2006 LEFT - Surgical History Surgery Procedure, Year, and Place: 2005, 2009, 2015 Left breast lumpectomy [facility] [place]. 1983 C section X1 [facility] [place]. 2008 L TKR [facility] [place] ;. 12/27/2017 LEFT BREAST BIOSPSY, CLIPS, NEG. [facility] Hx Anesthesia Reactions: No Infectious Disease History: No Infectious Disease History: Denies: Hx Hepatitis, Hx Human Immunodeficiency Virus (HIV), Hx of Known/ Suspected MRSA, History Other Infectious Disease, Traveled Outside the [place] in Last 30 Days - Family History Known Family History: Positive: Cardiac Disease, Hypertension, Diabetes - Social History Alcohol Use: None Hx Substance Use: No Substance Use Type: Reports: None Hx Tobacco Use: No Smoking Status (MU): Never Smoked Tobacco Have You Smoked in the Last Year: No Review of Systems Negative: Fever Positive: Nausea. Negative: Vomiting Negative: dysuria Positive: Myalgia - lower back Positive: Weakness All Other Systems Reviewed And Are Negative: Yes Physical Exam - Summary Physical Exam Summary: VITAL SIGNS: Reviewed. GENERAL: Patient is a well-developed and nourished female who is lying comfortable in the stretcher. Patient is not in any acute respiratory distress. HEAD AND FACE: No signs of trauma. No ecchymosis, hematomas or skull depressions. No sinus tenderness. EYES: PERRLA, EOMI x 2, No injected conjunctiva, no nystagmus. EARS: Hearing grossly intact. Ear canals and tympanic membranes are within normal limits. MOUTH: Oropharynx within normal limits. NECK: Supple, trachea is midline, no adenopathy, no JVD, no carotid bruit, no c- spine tenderness, neck with full ROM. CHEST: Symmetric, no tenderness at palpation LUNGS: Clear to auscultation bilaterally. No wheezing or crackles. CVS: Regular rate and rhythm, S1 and S2 present, no murmurs or gallops appreciated. ABDOMEN: Soft, non-tender. No signs of distention. No rebound no guarding, and no masses palpated. Bowel sounds are normal. EXTREMITIES: FROM in all major joints, no edema, no cyanosis or clubbing. NEURO: Alert and oriented x 3. No acute neurological deficits. Speech is normal and follows commands. SKIN: Dry and warm Triage Information Reviewed: Yes Vital Signs On Initial Exam: Initial Vitals Temp Pulse Resp BP Pulse Ox 98.2 F 87 12 131/56 97 10/29/18 14:19 10/29/18 14:19 10/29/18 14:19 10/29/18 14:19 10/29/18 14:19 Vital Signs Reviewed: Yes Diagnostics - Vital Signs Vital Signs Temp Pulse Resp BP Pulse Ox 10/29/18 16:34 97.6 F 88 20 108/53 96 10/29/18 14:19 98.2 F 87 12 131/56 97 - Laboratory Result Diagrams: 10/30/18 07:03 10/30/18 07:03 Lab Statement: Any lab studies that have been ordered have been reviewed, and results considered in the medical decision making process. - Radiology L-spine xray Radiology Interpretation Completed By: ED Physician Summary of Radiographic Findings: No acute fractures or dislocations. Pending official radiology report. Re-Evaluation - Re-Evaluation 1 Re-Evaluation Time: 18:37 Change: Improved Comment: The lumbar spine x-ray came back, the pt has no acute fractures or dislocations. The pt states her pain has improved, but is still at a 6/10. A CT scan of her lumbar spine will be ordered and she will be signed out to Dr. Julian. Back Pain Course/Dx - Course Assessment/Plan: Pt is a 73 year old F presenting to the ED with a chief complaint of back pain due to a new physical therapy machine she used. She was going for hip pain, it was helping, and then right before thanksgiving hurt her back at her appointment. Patient states the pain does not radiate but she was nauseous a couple days ago. Patient denies pain with urination, recent bowel movements, or vomiting. X-ray of the lumbar spine is negative for acute fracture dislocation. In the ED course the patient was given Toradol, Norflex, Decadron and a Percocet. The patient reports and that the pain has slightly improved but still the pain is 6 out of 10. The patient does not have any urinary or fecal dysfunction. Patient declined a rectal exam but declines any saddle anesthesia. However because of the pain and difficulty in ambulation I decided to order a CT of the lumbar spine. At this point the patient is awaiting for the CT. I also ordered an IV access and blood work. At this time we need to r/o herniated disk, malignancy, discitis, transverse myelitis, epidural abscess or hematoma. After CT patient may need an MRI of the Lumbar spine but needs to be approved by radiology. The patient will be signed out to Dr. Julian to follow up with the CT report and further assessment and plan for this patient. Patient is hemodynamically stable. - Diagnoses Provider Diagnoses: Epidural abscess, Cauda equina syndrome Discharge - Sign-Out/Discharge Documenting (check all that apply): Sign-Out Patient Signing out patient TO: Donte Julian - Discharge Plan Condition: Fair Disposition: ADMITTED TO [facility] - Billing Disposition and Condition Condition: FAIR Disposition: Admitted to [facility] - Attestation Statements Document Initiated by Jelly: Yes Documenting Scribe: Annmarie Pino Provider For Whom Jelly is Documenting (Include Credential): Jose Chow MD. Scribe Attestation: Annmarie Che, herminiaed for Jsoe Chow MD. on 10/30/18 at 0755. Scribe Documentation Reviewed: Yes Provider Attestation: The documentation as recorded by the mjibAnnmarie mayer accurately reflects the service I personally performed and the decisions made by , Jose Chow MD. Status of Scribe Document: Viewed
[2018-10-29] MEDS ORDERED: Orphenadrine Citrate IV* 30 MG/ML 2 ML VIAL IM ONE (16:57)
[2018-10-29] MEDS ORDERED: Dexamethasone IV* 4 MG/ML 1 ML (4 MG) IM ONE (16:57)
[2018-10-29] MEDS ORDERED: Ketorolac INJ* 60 MG/2 ML VIAL IM ONE (16:57)
[2018-10-29] MEDS ORDERED: oxyCODONE/Acetamin 5/325 MG* TAB PO ONE (17:24)
[2018-10-29 19:07] LABS: Hematocrit 27 % (35-47); Hemoglobin 8.7 g/dl (12.0-16.0); Mean Corpuscular HGB Conc 32 g/dl (31-36); Mean Corpuscular Hemoglobin 24 pg (27-31); Mean Platelet Volume 7.3 fL (7.4-10.4); Platelet Count 216 10^3/ul (150-450); Red Blood Count 3.68 10^6/ul (4.00-5.40); Red Cell Distribution Width 19 % (10.5-15)
[2018-10-29 19:21] LABS: EGFR Non-African American 30.2 (>60)
--- NOTE | 2018-10-29 19:56 | ED ---
Progress - Progress Note Progress Note: This patient was signed out from Dr. Chow c/o back pain awaiting for the read of the CT of the lumbar spine. CT L spine reveals, per radiology, 1. Multilevel advanced spondylotic changes of the lumbar spine including moderate to severe canal narrowing at L4-L5, as above. Consider further evaluation with MR lumbar spine. 2. Partially visualized cholelithiasis. 3. Small hiatal hernia. She states the pain began the day before thanksgiving while she was on a physical therapy table and it has altered her ability to move since. Her pain is feeling better after medication given. She reports slight radiating to her legs and denies urinary sx and fever. Although she has been having intermittent chills and tremors with the pain. Hx DM and HTN. She ambulates with a cane at baseline and had a hip replacement in July of this year but with the back pain her ability to ambulate has decreased. I informed the patient she will most likely be admitted at 2032, she understands and agreed to stay. Re-Evaluation - Re-Evaluation 1 Re-Evaluation Time: 00:25 Change: Improved Comment: The patient is no c/o lower back pain that radiates into her right leg. The pain is limiting her ROM but she is neurovascularly intact. Course/Dx - Course Course Of Treatment: This patient was signed out from Dr. Geraldo champion/[place] back pain awaiting for the read of the CT of the lumbar spine. CT L spine reveals, per radiology, 1. Multilevel advanced spondylotic changes of the lumbar spine including. moderate to severe canal narrowing at L4-L5, as above. Consider further. evaluation with MR lumbar spine. 2. Partially visualized cholelithiasis. 3. Small hiatal hernia. She states the pain began the day before thanksgiving while she was on a physical therapy table and it has altered her ability to move since. Her pain is feeling better after medication given. She reports slight radiating to her legs and denies urinary sx and fever. Although she has been having intermittent chills and tremors with the pain. Hx DM and HTN. She ambulates with a cane at baseline and had a hip replacement in July of this year but with the back pain her ability to ambulate has decreased. I informed the patient she will most likely be admitted at 2032, she understands and agreed to stay. Pt was not given contrast due to her poor kidney function. CXR reveals, no acute disease. Pending official report. MRI T spine reveals, 1. No acute findings in the thoracic spine. 2. Other chronic findings, as above. ED physician has reviewed this radiology report. MRI L spine reveals, 1. Severe compression of the cauda equina from L3 to L4-L5 secondary to. circumferential epidural T1 and T2 hyperintensity with associated STIR. hyperintensity. It is difficult to fully evaluate this area without use of IV. contrast, however given the additional presence of fluid within the L3-L4 disc. space, findings could represent epidural abscess with associated L3-L4. discitis, though the noncontrast T1 hyperintensity would be unusual for. epidural abscess and therefore also raises the possibility that this could. represent epidural lipomatosis. No STIR hyperintensity within the vertebral. body marrow to suggest osteomyelitis. Recommend neurosurgical consultation and. followup with post contrast MR lumbar spine sequences for complete evaluation. 2. Severe multilevel spondylotic changes of the lumbar spine, as above. ED physician has reviewed this radiology report. I discussed the case with Dr. Hoyos, radiology and he has agreed to the patient receiving an MRI. 0011 I discussed patient care with Dr. Freeman. He suggested admitting the patient and keeping her NPO as she will have surgery tomorrow. 0030 I discussed patient care with Dr. Gasca and she has accepted the patient for admission. - Diagnoses Provider Diagnoses: Epidural abscess, Cauda equina syndrome - Provider Notifications Discussed Care Of Patient With: Víctor Hoyos Time Discussed With Above Provider: 20:35 Instructed by Provider To: Other - Critical Care Time Critical Care Time: 30-74 min - 45 min Discharge - Sign-Out/Discharge Documenting (check all that apply): Patient Departure - admitted , Receiving Sign-Out Receiving patient FROM: Jose Chow - Discharge Plan Condition: Fair Disposition: ADMITTED TO [facility] Referrals: Odalys Adames MD [Primary Care Provider] - - Attestation Statements Document Initiated by Scribe: Yes Documenting Scribe: Luiz Almendarez Provider For Whom Scribe is Documenting (Include Credential): Donte Julian MD Scribe Attestation: Luiz Che , scribed for Donte Julian MD on 10/30/18 at 0040. Status of Scribe Document: Ready
[2018-10-29] MEDS ORDERED: NS 0.9% 1000 ML* 2,000 ML IV ONE (20:32)
[2018-10-29 20:40] LABS: ABS Basophils 0.1 10^3/ul (0-0.2); ABS Eosinophils 0 10^3/ul (0-0.6); ABS Lymphocytes 0.2 10^3/ul (1.0-4.8); ABS Monocytes 0.7 10^3/ul (0-0.8); ABS Neutrophils 12.9 10^3/ul (1.5-7.7); ABS Nucleated RBC 0 10^3/ul; Eosinophil % 0.2 %; Lymphocyte % 1.5 %; Mean Corpuscular Volume 74 fL (80-97); Nucleated Red Blood Cells % 0
[2018-10-29] MEDS ORDERED: Vancomycin(*) 1,000 MG in NS 0.9% 250 ML* 250 ML IVPB ONE (20:58)
[2018-10-29] MEDS ORDERED: Piperacillin/Tazobac ADVAN(*) 3.375 GM in NS 0.9% 100 ML* 100 ML IVPB ONE (20:58)
[2018-10-30] MEDS ORDERED: Ondansetron INJ* 2 MG/ML VIAL IV ONE (00:21)
[2018-10-30] MEDS ORDERED: Morphine INJ* 2 MG/ML 1 ML SYRINGE (TWO MG - NEW SYRINGE VERSION) IV ONE (00:21)
[2018-10-30 00:26] LABS: Urine Appearance Cloudy; Urine Blood 1+ (Negative); Urine Color Yellow; Urine Ketones Negative (Negative); Urine Protein Negative (Negative); Urine Red Blood Cell Absent (Absent); Urine Specific Gravity 1.014 (1.010-1.030); Urine Urobilinogen Negative (Negative); Urine White Blood Cell 2+(11-20/hpf) (Absent)
[2018-10-30] MEDS ORDERED: Morphine VIAL* 4 MG/ML VIAL (1 ml vial) ONE (00:28)
[2018-10-30] MEDS ORDERED: Dexamethasone IV* 4 MG/ML 1 ML (4 MG) IV SLOW PU ONE (00:34)
[2018-10-30] MEDS ORDERED: NS 0.9% 1000 ML* 1,000 ML IV SCH (00:45)
[2018-10-30] MEDS ORDERED: Dextrose 50% Syringe 50 ML* 25 GM/50 ML SYRINGE IV PUSH PRN (00:54)
[2018-10-30] MEDS ORDERED: Morphine VIAL* 4 MG/ML VIAL (1 ml vial) IV ONE (01:00)
[2018-10-30] MEDS ORDERED: Cefepime 2 GM in Dextrose(*) 2 GM/50 ML BAG IV SCH ×2 (01:30→03:00)
--- NOTE | 2018-10-30 04:26 | HP ---
CC: Dr. Adames * HISTORY AND PHYSICAL: DATE OF ADMISSION: 10/30/18 PRIMARY CARE PROVIDER: Dr. Adames. CHIEF COMPLAINT: Low back pain. HISTORY OF PRESENT ILLNESS: Ms. Leon is a 73-year-old female who states that she had a right total hip replacement with Dr. Castanon in late July. She states she has been doing quite well with physical therapy up until the day before . She states that she went to her physical therapy appointment and was using the leg press machine when she began to feel low back discomfort. She saw Dr. Castanon that day and ultimately went home. The following day, she states that she had an incredibly difficult time moving around. She has been having a difficult time walking since the day prior to . She denies any numbness or tingling of her feet or limbs. She does feel that she may have some slight weakness to her lower extremities, but states that is baseline. She denies any incontinence of urine or stool. She also states that she has had chills that have been off and on over the last couple of weeks. She denies any fever. She has noted that she has had cold sores around her lips over the last one week. She presented to the emergency room today due to persistent low back pain and inability to ambulate very easily. PAST MEDICAL HISTORY/PAST SURGICAL HISTORY: 1. Type 2 diabetes. 2. History of breast cancer, status post lumpectomy x3 and radiation therapy. 3. Hypertension. 4. Left total knee replacement. 5. Bilateral carpal tunnel release. 6. . 7. Right total hip replacement. MEDICATIONS: 1. Ibuprofen 200 mg p.o. q.6 hours p.r.n. pain. 2. Potassium 99 mg p.o. daily. 3. Hydrochlorothiazide 12.5 mg p.o. daily. 4. Vitamin D3 5000 units p.o. daily. 5. Aspirin 81 mg p.o. daily. 6. Ascorbic acid 1 tab p.o. daily. 7. Metformin 500 mg p.o. b.i.d. 8. Januvia 50 mg p.o. daily. 9. Lasix 20 mg p.o. daily. 10. Lisinopril 30 mg p.o. daily. ALLERGIES: LATEX and TAPE. FAMILY HISTORY: Mom of coronary artery disease. Dad of renal failure. SOCIAL HISTORY: The patient is a lifelong nonsmoker. She does not drink alcohol. 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 She is not . She has 3 children. She indicates that her sister, Jovany Castro, would be her healthcare proxy. REVIEW OF SYSTEMS: A complete 11-system review of systems is obtained. Pertinent positives and negatives are as per HPI and in addition the patient does complain of poor appetite over the last few weeks and being constipated. Otherwise, the review of systems is negative. PHYSICAL EXAMINATION GENERAL: The patient is a well-developed elderly female seen lying in the stretcher, in no acute distress. VITAL SIGNS: Blood pressure 138/64, pulse 83, respirations 15, temp 100.3, O2 sat 93% on room air. HEENT: Pupils are equal and round. Extraocular muscles are intact. Oropharynx is clear. Oral mucosa is somewhat dry. The patient wears dentures. There is no submandibular, cervical, or supraclavicular adenopathy. Thyroid is not enlarged. No thyroid nodules are noted. PULMONARY: Lungs are clear to auscultation anteriorly and at the lateral bases. CARDIAC: Normal S1, S2. Regular rate and rhythm. I did not appreciate any murmurs. There is no lower extremity edema. ABDOMEN: Bowel sounds are present. Abdomen is soft and nondistended. She is mildly tender to palpation in the right upper quadrant. MUSCULOSKELETAL: There is full range of motion of the upper extremities. Lower extremity range of motion is limited due to low back pain. SKIN: Warm and dry. There are no rashes. She does have healing cold sores on her lips. NEURO: Cranial nerves II through XII are grossly intact. Sensation is intact to light touch throughout. Strength is 5/5 and symmetric in the upper extremities. Distal lower extremity strength is normal. PSYCH: The patient is alert. She is oriented x3. She is a poor historian; however, affect appears appropriate. DIAGNOSTIC STUDIES AND LABORATORY DATA: WBC 14.0, hemoglobin 8.7, hematocrit 27, platelets 216. PTT 27.8. Sodium 129, potassium 3.7, chloride 93, CO2 of 25 , BUN 64, creatinine 1.67, glucose 163, calcium 9.6. Bilirubin 0.4, AST 14, ALT 9, alk phos 78. CRP 319.50. Albumin 2.9. Urinalysis reveals cloudy urine with specific gravity of 1.014, 1+ blood, 2+ leukocyte esterase, 2+ wbc's, absent bacteria, present cellular and hyaline casts. umbar spine CT: Multilevel advanced spondylitic changes to the lumbar spine including [id number]-st-parmvy canal narrowing at L4-5, partially visualized cholelithiasis, small hiatal hernia. Lumbar spine MRI: Severe compression of the cauda equina from L3 to L4-5 secondary to circumferential epidural T1 and T2 hyperintensity with associated STIR hyperintensity. It is difficult to fully evaluate the area without use of IV contrast, however, given the additional presence of fluid within the L3-4 disc space findings could represent epidural abscess with associated L3-4 discitis though the noncontrast T1 hyperintensity would be unusual for epidural abscess and therefore also raises the possibility that this could represent epidural lipomatosis. There is no STIR hyperintensity within the vertebral body marrow to suggest osteomyelitis. Thoracic spine MRI: No acute findings in the thoracic spine. Chest x-ray to my interpretation appears clear. ASSESSMENT AND PLAN: Ms. Leon is a 73-year-old female with a history of type 2 diabetes, hypertension and a history of breast cancer who presents to the emergency room with complaints of 2 weeks of severe low back pain with possibly associated chills who was found to have a possible epidural abscess on MRI. 1. Possible L3 to L5 epidural abscess. This does seem like a strong possibility given the fact that this patient has an elevated white blood cell count of 14,000, CRP of over 300, and signs of being ill for a period of time with hyponatremia and elevated creatinine. The patient has received vancomycin and Zosyn in the emergency room. I will continue vancomycin, but change the Zosyn to cefepime moving forward. Neurosurgery has been consulted through the ER and the plan is to see the patient tomorrow morning and likely take her to the operating room. The patient just had a right total hip replacement with Dr. Castanon at the end of July. She had no complications with anesthesia during that operation. Prior to the back pain beginning, she states that she was able to walk up and down a flight of stairs without any chest pain. The proposed operation is urgent and at this point I feel the patient is medically optimized for the OR. She will be receiving normal saline and I will follow up her hyponatremia and her renal function. 2. Hyponatremia. This is likely secondary to poor oral intake. The patient states her appetite has been very poor over the last couple of weeks. She will be receiving normal saline at 100 mL per hour. I am holding her hydrochlorothiazide and her Lasix. 3. Acute kidney injury. The patient's creatinine is about twice her baseline. This also likely is prerenal in nature; however, she does have cellular casts on her urinalysis, which could be indicative of there being a component of acute tubular necrosis. The patient was also on Lasix, hydrochlorothiazide, and lisinopril, all which could be nephrotoxic. All of these will be held. We will reevaluate her BMP later this morning. 4. Type 2 diabetes. I am going to hold the patient's metformin due to her acute kidney injury and her Januvia as this was nonformulary. She will be placed on fingersticks q.6 hours and will have a lispro sliding scale. We may need to initiate long-acting insulin if her sugars elevate and her renal function does not improve to resume these medications. 5. Anemia. The patient has been chronically anemic dating back to 2016. Postop, from her right hip, the patient had a hemoglobin of 8.4. She got as low as 6.4 during that hospitalization. Her hemoglobin now is only 8.7. I will add iron studies to the labs obtained in the emergency room. It is possible that she may have anemia of chronic inflammation related to ongoing infection in the epidural space. We will follow her hemoglobin closely. 6. DVT prophylaxis. According to the Adult Thrombosis Prophylaxis Risk Factor Assessment Guide, the patient has a total risk factor score of 4, making her high risk. She will be on SCDs alone for right now as the plan is to go to the OR later this morning. When okay by Neurosurgery, subcutaneous heparin should be initiated. 7. Code status is full. TIME SPENT: Sixty five minutes was spent admitting this patient. [id number]/CPS #: [id number] [id number]
[2018-10-30] MEDS: Vancomycin(*) 1,000 MG in NS 0.9% 250 ML* 250 ML IVPB SCH ×2 (05:40→18:08)
[2018-10-30] MEDS: Insulin LISPRO* 1 UNITS UNIT SUBCUT SCH ×4 (05:40→23:32)
[2018-10-30 07:37] LABS: Hematocrit 23 % (35-47); Hemoglobin 7.3 g/dl (12.0-16.0); Mean Corpuscular HGB Conc 32 g/dl (31-36); Mean Corpuscular Hemoglobin 24 pg (27-31); Mean Corpuscular Volume 74 fL (80-97); Mean Platelet Volume 7.6 fL (7.4-10.4); Platelet Count 203 10^3/ul (150-450); Red Cell Distribution Width 19 % (10.5-15); White Blood Count 14.2 10^3/ul (3.5-10.8)
[2018-10-30 07:46] LABS: EGFR Non-African American 36.5 (>60)
[2018-10-30] MEDS ORDERED: Vancomycin per Pharmacy* NOTE FOLLOW UP PRN (08:49)
[2018-10-30] MEDS ORDERED: Aspirin EC TAB* 81 MG TAB.EC PO SCH (09:00)
--- NOTE | 2018-10-30 09:15 | CONS ---
CONSULTATION REPORT: DATE OF CONSULT: 10/30/18 HISTORY OF PRESENT ILLNESS: The patient is a very pleasant 73-year-old female with history of diabetes and hypertension who is status post right hip replacement in July 2018, who presented to the emergency room because of complaints of back pain. Requested to see the patient by the emergency room physician because of MRI findings consistent with L3-4 diskitis and possible epidural abscess. The patient reports that the hip pain started during physical therapy, approximately around Thanksgiving, the pain has progressively gotten worse to the point that she has difficulty ambulating. She had been able to not use the cane until then, but started to use it again. She reports that her pain is mostly in her back with very minimal radiation to the lower extremities. The patient denies any weakness, numbness, or tingling of her extremities, although she reports she has difficulty ambulating. She reports that she has to use a cane. She denies any urinary or GI incontinence. She denies any loss of perianal sensation. The patient is currently on disability after her hip replacement. She was working in [employer]. She is single and has 3 sons, 2 of them are in [facility] and 1 is in [place]. PAST MEDICAL HISTORY: The patient reports a history of diabetes and hypertension. She was on 81 mg of aspirin. GERD, arthritis, and cataracts bilateral. PAST SURGICAL HISTORY: Hip replacement, left breast lumpectomy, and biopsy C- section. ALLERGIES: The patient is allergic to LATEX and ADHESIVE. FAMILY HISTORY: Cardiac disease, hypertension, and diabetes. SOCIAL HISTORY: Tobacco negative. Alcohol negative. Recreational drug use negative. PHYSICAL EXAM: The patient is not in acute distress. She is awake, alert, and oriented x3. Pupils are equal and reactive. Cranial nerves II through XII are grossly intact. Motor 4-5/5 in the upper extremities, 4- in the lower extremities, possibly antalgic with hip flexion limited in the range of motion because of pain. The patient has difficulty elevating both legs off the bed because of significant pain. Sensation is grossly intact to light touch. Deep tendon reflexes +1 bilaterally. No clonus. No Babinski. Thomas's negative. Straight leg test limited because of the patient's pain. Tinel's negative in the median ulnar or peroneal nerve distribution. DIAGNOSTIC STUDIES/LAB DATA: The patient had an x-ray of her lumbar spine revealing degenerative disk disease with left convexity scoliotic curve with apex at the L3-4 approximately with significant degenerative disk disease with mild lateral listhesis at L4-5 with disk height loss at L4-5 with possible autofusion and disk vacuum phenomenon at L5-S1. The patient had a CT scan of the lumbar spine revealing degenerative disk disease with similar findings with significant stenosis. The patient had an MRI of her lumbar spine without contrast revealing degenerative disk disease with L3-4 possible diskitis and possible epidural abscess at L3-4 with significant canal stenosis and possible epidural lipomatosis with significant compression of the cauda equina multilevel neuroforaminal stenosis. ASSESSMENT: The patient is a very pleasant 73-year-old female with history of diabetes and hypertension who is status post right hip replacement who now presents with significant back pain and MRI finding consistent with L3-4 diskitis and possible epidural abscess with significant degenerative disk disease and scoliosis. PLAN: The patient at this point has also increased inflammatory markers with white count of 14,000 and CRP of 319. Based on her clinical presentation as well as MRI findings, the patient most likely has axial back pain and possible instability from L3-4 diskitis and a possible epidural abscess as described in MRI report. Based on these findings, the patient was offered the option of surgical intervention in the form of multilevel instrumentation and fusion with decompression. We discussed operative and nonoperative options including treatment with lumbar brace and antibiotics versus surgical stabilization and decompression with instrumentation, which seems to be the best option in her condition in my opinion. We discussed risks and benefits of surgical intervention, with the risks including bleeding, infection, risk of injury to adjacent structures, coma, paralysis, , need for additional procedure, anesthesia risk, stroke, blindness, cancer, instability, hardware failure, adjacent level disease, pseudoarthrosis, spinal fluid leak, persistence of infection, infection of the hardware, need for revision, and further surgical interventions, anesthesia risks, hardware failure. The patient at this point would not like to proceed with surgical intervention, understanding the possible implications of her decision with possible outcomes including paralysis , loss of bladder and bowel control and . She reports that one of her relatives had a very bad experience with back surgery and she would not like to proceed at least as of now. The possible outcomes were discussed in extent with the patient as well as the risks of nonoperative and operative treatment in the presence of the patient's nurse. The patient would not like to consider surgical intervention and would like to discuss with her family in the morning. At this point, we recommend ID consult. The patient is already on antibiotics. We recommend a LSO brace. The patient also has possible urinary tract infection and on my review of the MRI, there might be some renal cyst. Would be happy to discuss with the patient and also family again if they would like to consider surgical intervention. Thank you for allowing us to participate in the care of this patient. Please do not hesitate to contact our office in case you have any further questions or concerns regarding the care of this patient. [id number]/[facility] #: [id number] GUMAOR
[2018-10-30] MEDS: Morphine VIAL* 4 MG/ML VIAL (1 ml vial) IV PRN ×3 (12:12→23:12)
--- NOTE | 2018-10-30 12:34 | CONS ---
CONSULTATION REPORT: DATE OF CONSULT: 10/30/18 REQUESTING PHYSICIAN: Dr. Gasca. CONSULTING SERVICE: Infectious Disease. REASON FOR CONSULT: Epidural abscess. IMPRESSION: 1. Two weeks of progressive severe low back pain with chills and anorexia. MRI shows severe compression with cauda equina L3-L5 with epidural T1-T2 hyperintensity, collection of fluid in the L3-L4 disk space, no abnormal marrow signal in the vertebral bodies, however. She does have gram-positive cocci in the blood, Staphylococcus aureus negative, likely Staphylococcus epidermidis. 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 Our plan is for urgent decompression today. 2. Status post right hip arthroplasty, July 2018, with some pain in the hip and slight erythema along the healed incision. She does have pain with range of motion of the right hip which she notices more in the low back than in the hip. 3. History of left knee arthroplasty which is asymptomatic. 4. Morbid obesity. 5. Type 2 diabetes. RECOMMENDATIONS: Continue her vancomycin goal trough 15-20. Stop the cefepime , as I mentioned she is going for urgent decompression of the epidural collection today. After that procedure, we will pursue further evaluation of the right hip to ensure it is not involved in this infection. HISTORY OF PRESENT ILLNESS: This is a 73-year-old diabetic woman with a history of right hip arthroplasty on 08/17/18, which she recovered from. She has been feeling well. Then about 2 weeks ago, was at physical therapy, developed some mild low back pain, progressed to become more severe and she developed chills without fever as far as she knew along with anorexia and has lost a few pounds. Because of worsening pain, she came to the hospital yesterday evening. She had a CT that showed some cord compression that was confirmed on MRI with findings as noted above. She was seen by Dr. Freeman this morning who plans on decompression today. White count was 14 last night, it is 14 today. She has had a low-grade fever here. CRP was 320 yesterday; creatinine was 1.6 yesterday, is 1.4 today. Her iron level was less than 15, ferritin is 164. Blood cultures 2 of 2 bottles with gram-positive cocci, Staph aureus negative. She was up with a walker today. She states she uses the walker because of pain, not because of trouble using her legs and that the pain is worse in the low back and in her feet where she has bunions and that the pain is not worse with weightbearing in the right hip or left knee. PAST MEDICAL HISTORY: 1. Type 2 diabetes. 2. Morbid obesity. 3. Osteoarthritis. 4. Status post left knee arthroplasty. 5. Status post right hip arthroplasty. 6. Breast cancer status post lumpectomy and radiation. 7. Hypertension. 8. Status post bilateral carpal tunnel release. 9. Status post . MEDICATIONS: 1. Aspirin. 2. Cefepime. 3. Insulin. 4. Ketorolac once in the ER. 5. Morphine as needed. 6. Vancomycin 1 g every 12 hours. ALLERGIES: LATEX and TAPE. FAMILY HISTORY: Father from renal failure. Mother with coronary artery disease. SOCIAL HISTORY: She lives in [place] with her twin sister. She has no travel or sick contacts. REVIEW OF SYSTEMS: A 14-point review was all negative except as noted above in the history of present illness. PHYSICAL EXAM: Vital Signs: Temperature of 37, heart rate 70, respiratory rate 16, blood pressure 130/53, oxygen saturation 98% on room air. In general, she is awake and not in distress. Neurologic: She is oriented x3. Follows all commands. Strength is limited in the legs due to pain and size but strength is intact with the quads, tibialis anterior and gastrocnemius bilaterally. Sensation is intact to light touch in the knees and in feet. There is no lower extremity clonus bilaterally. Neck is supple without mass. Lymph nodes: There is no cervical, supraclavicular, inguinal, axillary or epitrochlear lymphadenopathy. Heart is regular rate and rhythm without murmurs, rubs or gallops. Lungs are clear to auscultation bilaterally. Abdomen: Soft, nontender, nondistended. There are bowel sounds present. Skin: There is no rash or splinter hemorrhage. Musculoskeletal: There is low back and spine tenderness to palpation. There is no hip or knee tenderness to palpation or knee effusion. There is no right hip pain with log roll. There is low back pain with flexion and extension of the right hip, which she does not feel involves the hip. The right hip incision is healed. There is slight erythema with diffuse edema, no tenderness. DIAGNOSTIC STUDIES/LAB DATA: White blood cell count 14.2, hemoglobin 7, MCV 74 , platelets 203,000. Creatinine 1.4. Please see impressions and recommendations outlined above. Thanks for asking me to see Ms. Leon in consultation. [id number]/[facility] #: [id number] MTDD
--- NOTE | 2018-10-30 15:19 | PN ---
Subjective Date of Service: 10/30/18 Interval History: Nurse spoke with patient this morning reiterating risks/benefits of surgery versus medical management. Patient agrees to proceed with surgery. Patient attempted to walk to the bathroom this morning and reports her legs felt as if they were stiff and not working right. Patient placed on bed rest with commode privileges and Neurosurgeon updated. I addition anesthesia consulted this morning and would like PRBC on stand by for surgery tomorrow as patient is noted to be anemia, but asymptomatic. Patient reports pain in lower back is "6" out of 10. Denies radiation, numbness/ tingling, loss of bowel or bladder control, or weakness. Patient also denies cp, sob, palpitations, n/v/d, urinary symptoms. Objective Active Medications: Dextrose (D50w Syringe 50 Ml*) 12.5 gm IV PUSH .FOR FS < 60 - SS PRN PRN Reason: FS < 60 Famotidine (Pepcid Iv*) 20 mg IV ONCE ONE Stop: 10/31/18 08:01 Sodium Chloride (Ns 0.9% 1000 Ml*) 1,000 mls @ 100 mls/hr IV PER [facility]ATE [facility] Last Admin: 10/30/18 02:54 Dose: 100 mls/hr Vancomycin HCl 1,000 mg/ (Sodium Chloride) 250 mls @ 166.667 mls/hr IVPB Q12H [facility]; Protocol Last Admin: 10/30/18 05:40 Dose: 166.667 mls/hr Insulin Human Lispro (Humalog*) 0 units SUBCUT Q6HR [facility]; Protocol Last Admin: 10/30/18 12:18 Dose: Not Given Morphine Sulfate (Morphine Vial*) 4 mg IV Q4H PRN PRN Reason: PAIN - MILD Last Admin: 10/30/18 12:12 Dose: 4 mg Pharmacy Consult (Vancomycin Per Pharmacy*) 1 note FOLLOW UP . PRN PRN Reason: PER PROTOCOL Pharmacy Profile Note (Vancomycin Trough Check) 1 note FOLLOW UP 0600 ONE Stop: 10/31/18 06:01 Vital Signs - 8 hr 10/30/18 10/30/18 10/30/18 07:42 08:00 11:11 Temperature 98.4 F Pulse Rate 77 77 Respiratory 16 16 16 Rate Blood Pressure 140/48 143/52 (mmHg) O2 Sat by Pulse 97 99 Oximetry 10/30/18 12:12 Temperature Pulse Rate Respiratory 18 Rate Blood Pressure (mmHg) O2 Sat by Pulse Oximetry Oxygen Devices in Use Now: None Appearance: Well appearing, NAD Eyes: No Scleral Icterus, PERRLA Ears/Nose/Mouth/Throat: Clear Oropharnyx, Mucous Membranes Moist Neck: NL Appearance and Movements; NL JVP Respiratory: Symmetrical Chest Expansion and Respiratory Effort, Clear to Auscultation Cardiovascular: NL Sounds; No Murmurs; No JVD, RRR, No Edema Abdominal: NL Sounds; No Tenderness; No Distention Lymphatic: No Cervical Adenopathy Extremities: No Edema Skin: No Rash or Ulcers Neurological: Alert and Oriented x 3, NL Sensation, NL Muscle Strength and Tone Result Diagrams: 10/30/18 16:51 10/30/18 07:03 Additional Lab and Data: Laboratory Results - last 24 hr 10/29/18 10/29/18 10/29/18 18:52 18:52 18:52 WBC 14.0 H RBC 3.68 L Hgb 8.7 L Hct 27 L MCV 74 L MCH 24 L MCHC 32 RDW 19 H Plt Count 216 MPV 7.3 L Neut % (Auto) 92.5 Lymph % (Auto) 1.5 Ralls % (Auto) 5.3 Eos % (Auto) 0.2 Baso % (Auto) 0.5 Absolute Neuts (auto) 12.9 H Absolute Lymphs (auto) 0.2 L Absolute Monos (auto) 0.7 Absolute Eos (auto) 0 Absolute Basos (auto) 0.1 Absolute Nucleated RBC 0 Nucleated RBC % 0 Hypochromasia 1+ Anisocytosis 2+ Microcytosis 1+ Elliptocytes 1+ APTT Sodium 129 L Potassium 3.7 Chloride 93 L Carbon Dioxide 25 Anion Gap 11 BUN 54 H Creatinine 1.67 H Est GFR ( Amer) 36.6 Est GFR (Non-Af Amer) 30.2 BUN/Creatinine Ratio 32.3 H Glucose 163 H POC Glucose (mg/dL) Hemoglobin A1c 7.5 H Calcium 9.6 Iron < 15 L TIBC 312 % Saturation 5 L Unsat Iron Binding < 297 Transferrin 223 Ferritin 164.3 Total Bilirubin 0.40 AST 14 ALT 9 Alkaline Phosphatase 78 C-Reactive Protein 319.50 H Total Protein 6.3 L Albumin 2.9 L Globulin 3.4 Albumin/Globulin Ratio 0.9 L Urine Color Urine Appearance Urine pH Ur Specific [place] Urine Protein Urine Ketones Urine Blood Urine Nitrate Urine Bilirubin Urine Urobilinogen Ur Leukocyte Esterase Urine WBC (Auto) Urine RBC (Auto) Ur Squamous Epith Cells Urine Bacteria Cellular Casts Hyaline Casts Urine Glucose Urine Ascorbic Acid Blood Type Antibody Screen Crossmatch 10/29/18 10/30/18 10/30/18 20:45 00:15 02:22 WBC RBC Hgb Hct MCV MCH MCHC RDW Plt Count MPV Neut % (Auto) Lymph % (Auto) Ralls % (Auto) Eos % (Auto) Baso % (Auto) Absolute Neuts (auto) Absolute Lymphs (auto) Absolute Monos (auto) Absolute Eos (auto) Absolute Basos (auto) Absolute Nucleated RBC Nucleated RBC % Hypochromasia Anisocytosis Microcytosis Elliptocytes APTT 27.8 Sodium Potassium Chloride Carbon Dioxide Anion Gap BUN Creatinine Est GFR ( Amer) Est GFR (Non-Af Amer) BUN/Creatinine Ratio Glucose POC Glucose (mg/dL) 238 H Hemoglobin A1c Calcium Iron TIBC % Saturation Unsat Iron Binding Transferrin Ferritin Total Bilirubin AST ALT Alkaline Phosphatase C-Reactive Protein Total Protein Albumin Globulin Albumin/Globulin Ratio Urine Color Yellow Urine Appearance Cloudy Urine pH 5.0 Ur Specific [place] 1.014 Urine Protein Negative Urine Ketones Negative Urine Blood 1+ A Urine Nitrate Negative Urine Bilirubin Negative Urine Urobilinogen Negative Ur Leukocyte Esterase 2+ A Urine WBC (Auto) 2+(11-20/hpf) A Urine RBC (Auto) Absent Ur Squamous Epith Cells Present A Urine Bacteria Absent Cellular Casts Present A Hyaline Casts Present A Urine Glucose Negative Urine Ascorbic Acid * A Blood Type Antibody Screen Crossmatch 10/30/18 10/30/18 10/30/18 05:33 07:03 07:03 WBC 14.2 H RBC 3.10 L Hgb 7.3 L Hct 23 L MCV 74 L MCH 24 L MCHC 32 RDW 19 H Plt Count 203 MPV 7.6 Neut % (Auto) Lymph % (Auto) Ralls % (Auto) Eos % (Auto) Baso % (Auto) Absolute Neuts (auto) Absolute Lymphs (auto) Absolute Monos (auto) Absolute Eos (auto) Absolute Basos (auto) Absolute Nucleated RBC Nucleated RBC % Hypochromasia Anisocytosis Microcytosis Elliptocytes APTT Sodium 130 L Potassium 3.8 Chloride 99 L Carbon Dioxide 24 Anion Gap 7 BUN 53 H Creatinine 1.42 H Est GFR ( Amer) 44.1 Est GFR (Non-Af Amer) 36.5 BUN/Creatinine Ratio 37.3 H Glucose 189 H POC Glucose (mg/dL) 202 H Hemoglobin A1c Calcium 8.7 Iron TIBC % Saturation Unsat Iron Binding Transferrin Ferritin Total Bilirubin AST ALT Alkaline Phosphatase C-Reactive Protein Total Protein Albumin Globulin Albumin/Globulin Ratio Urine Color Urine Appearance Urine pH Ur Specific [place] Urine Protein Urine Ketones Urine Blood Urine Nitrate Urine Bilirubin Urine Urobilinogen Ur Leukocyte Esterase Urine WBC (Auto) Urine RBC (Auto) Ur Squamous Epith Cells Urine Bacteria Cellular Casts Hyaline Casts Urine Glucose Urine Ascorbic Acid Blood Type Antibody Screen Crossmatch 10/30/18 10/30/18 10/30/18 07:03 12:16 16:51 WBC RBC Hgb 8.7 L Hct 30 L MCV MCH MCHC RDW Plt Count MPV Neut % (Auto) Lymph % (Auto) Ralls % (Auto) Eos % (Auto) Baso % (Auto) Absolute Neuts (auto) Absolute Lymphs (auto) Absolute Monos (auto) Absolute Eos (auto) Absolute Basos (auto) Absolute Nucleated RBC Nucleated RBC % Hypochromasia Anisocytosis Microcytosis Elliptocytes APTT Sodium Potassium Chloride Carbon Dioxide Anion Gap BUN Creatinine Est GFR ( Amer) Est GFR (Non-Af Amer) BUN/Creatinine Ratio Glucose POC Glucose (mg/dL) 148 H Hemoglobin A1c Calcium Iron TIBC % Saturation Unsat Iron Binding Transferrin Ferritin Total Bilirubin AST ALT Alkaline Phosphatase C-Reactive Protein Total Protein Albumin Globulin Albumin/Globulin Ratio Urine Color Urine Appearance Urine pH Ur Specific [place] Urine Protein Urine Ketones Urine Blood Urine Nitrate Urine Bilirubin Urine Urobilinogen Ur Leukocyte Esterase Urine WBC (Auto) Urine RBC (Auto) Ur Squamous Epith Cells Urine Bacteria Cellular Casts Hyaline Casts Urine Glucose Urine Ascorbic Acid Blood Type A Positive Antibody Screen Negative Crossmatch See Detail 10/30/18 18:00 WBC RBC Hgb Hct MCV MCH MCHC RDW Plt Count MPV Neut % (Auto) Lymph % (Auto) Ralls % (Auto) Eos % (Auto) Baso % (Auto) Absolute Neuts (auto) Absolute Lymphs (auto) Absolute Monos (auto) Absolute Eos (auto) Absolute Basos (auto) Absolute Nucleated RBC Nucleated RBC % Hypochromasia Anisocytosis Microcytosis Elliptocytes APTT Sodium Potassium Chloride Carbon Dioxide Anion Gap BUN Creatinine Est GFR ( Amer) Est GFR (Non-Af Amer) BUN/Creatinine Ratio Glucose POC Glucose (mg/dL) 169 H Hemoglobin A1c Calcium Iron TIBC % Saturation Unsat Iron Binding Transferrin Ferritin Total Bilirubin AST ALT Alkaline Phosphatase C-Reactive Protein Total Protein Albumin Globulin Albumin/Globulin Ratio Urine Color Urine Appearance Urine pH Ur Specific [place] Urine Protein Urine Ketones Urine Blood Urine Nitrate Urine Bilirubin Urine Urobilinogen Ur Leukocyte Esterase Urine WBC (Auto) Urine RBC (Auto) Ur Squamous Epith Cells Urine Bacteria Cellular Casts Hyaline Casts Urine Glucose Urine Ascorbic Acid Blood Type Antibody Screen Crossmatch Microbiology and Other Data: Microbiology 10/29/18 21:35 Blood Venous Aerobic Blood Culture - Preliminary 10/29/18 21:35 Blood Venous Blood MRSA/MSSA (PCR) - Final Mrsa Negative S.aureus Negative 10/29/18 20:45 Blood Venous Aerobic Blood Culture - Preliminary 10/29/18 20:45 Blood Venous Anaerobic Blood Culture - Preliminary 10/29/18 20:45 Blood Venous Blood MRSA/MSSA (PCR) - Final Mrsa Negative S.aureus Negative Diagnostic Imaging: . EKG Data: EKG similar to that of June 2016. No acute changes. Assess/Plan/Problems-Billing Assessment: 73 yr old female s/p right total hip replacement in jul 2018, DM2, breast ca, htn, total left knee replacement who presented to the ed with low back discomfort since 10/21 and was found to have possible L3 to L5 epidural abscess - Patient Problems (1) Epidural abscess Comment: - WBC 14.1 - Afebrile - Continue vanco per ID. - Surgery tomorrow at [address] Junior (2) SANJANA (acute kidney injury) Comment: - Creatine 1.67 on admission and 1.42 today. Baseline approx 0.9 - Receiving IV fluids and nephrotoxic medications held. - Repeat tomorrow (3) HTN (hypertension) Comment: - Normotensive - Cont to hold lisinopril, lasix, and hctz due to elevated creatinine, hyponatremia, and upcoming surgery (4) Hyponatremia Comment: - Na 130 today up from 129 on admission - Cont NS - Cont to hold lasix and hctz (5) Type II diabetes mellitus Comment: - Hold metformin and Januvia - Cont sliding scale - If creatinine dose not improve patient may need lantus instead of home medications (6) Spine instability Comment: - Per neurosurg possibly instability due to L3-4 diskitis - Bedrest with commode - Surg tomorrow (7) Full code status Comment: - Full Code (8) DVT prophylaxis Comment: - SCDs only - Hold Heparin per Neurosurg. - May order DVT proph 1 to 2 days after surgery per neurosurg Status and Disposition: Inpatient. Surg tomorrow. Attending: Alysha Boo
[2018-10-30 17:50] LABS: Hematocrit 30 % (35-47); Hemoglobin 8.7 g/dl (12.0-16.0)
[2018-10-30] MEDS: Calcium Carbonate CHEW TAB* 500 MG (TUMS) PO PRN ×2 (18:38→23:13)
--- NOTE | 2018-10-30 19:03 | PN ---
Progress Note - Progress Note Date of Service: 10/30/18 SOAP: Subjective: [] No events ON. Pain is better controlled. Voids. Tolerates po well. Attempted to walk to bathroom earlier, but felt her legs were weak and numb. On bed rest now. Objective: []VSS AAOx3 EDUARDO, CN II-XII grossly intact. Motor 4-5/5 all extremities, difficulty elevating LEs above bed, HF 4/5 on resistance. Sensory grossly intact to light touch Assessment: [] 73 yof L3-4 discitis, epidural abscess Plan: []Monitor VS, Neuorchecks, OR in am NPO after midnight T and S for 4 units of RBC Anesthesia clearance in am No family available at this time. Patient would like to not call her sister as she is not available at this time. Appreciate IM, ID care. Tabitha Freeman MD
[2018-10-30] MEDS: Acetaminophen TAB* 325 MG PO PRN (23:31)
[2018-10-31] MEDS: Insulin LISPRO* 1 UNITS UNIT SUBCUT SCH ×4 (05:16→22:12)
[2018-10-31] MEDS ORDERED: Naloxone* 0.4 MG/ML 1 ML VIAL IV PRN (05:52)
[2018-10-31] MEDS ORDERED: PROCHLORPERAZINE INJ 5 MG/ML 2 ML VIAL IV PRN (05:52)
[2018-10-31] MEDS ORDERED: DiMENhydriNATE IV* 50 MG/ML VIAL IV PUSH PRN (05:52)
[2018-10-31] MEDS ORDERED: Vancomycin Trough Check NOTE FOLLOW UP ONE (06:00)
[2018-10-31] MEDS: Morphine VIAL* 4 MG/ML VIAL (1 ml vial) IV PRN ×4 (06:22→19:21)
[2018-10-31 06:36] LABS: INR 1.2 (0.77-1.02)
[2018-10-31 06:43] LABS: EGFR Non-African American 60.2 (>60)
[2018-10-31 06:49] LABS: ABS Basophils 0 10^3/ul (0-0.2); ABS Eosinophils 0 10^3/ul (0-0.6); ABS Lymphocytes 0.3 10^3/ul (1.0-4.8); ABS Monocytes 0.4 10^3/ul (0-0.8); ABS Neutrophils 6.1 10^3/ul (1.5-7.7); ABS Nucleated RBC 0 10^3/ul; Eosinophil % 0.2 %; Hematocrit 51 % (35-47); Hemoglobin 15.8 g/dl (12.0-16.0); Lymphocyte % 4.8 %; Mean Corpuscular HGB Conc 31 g/dl (31-36); Mean Corpuscular Hemoglobin 24 pg (27-31); Mean Corpuscular Volume 75 fL (80-97); Mean Platelet Volume 8.3 fL (7.4-10.4); Nucleated Red Blood Cells % 0.1; Platelet Count 107 10^3/ul (150-450); Red Blood Count 6.75 10^6/ul (4.00-5.40); Red Cell Distribution Width 20 % (10.5-15); White Blood Count 6.9 10^3/ul (3.5-10.8)
[2018-10-31] MEDS: Vancomycin(*) 1,000 MG in NS 0.9% 250 ML* 250 ML IVPB SCH (07:15)
[2018-10-31] MEDS ORDERED: Famotidine IV* 10 MG/ML 2 ML (20 mg) IV ONE (08:00)
[2018-10-31 09:35] LABS: Hematocrit 26 % (35-47); Hemoglobin 8.4 g/dl (12.0-16.0); Mean Corpuscular HGB Conc 32 g/dl (31-36); Mean Corpuscular Hemoglobin 24 pg (27-31); Mean Corpuscular Volume 74 fL (80-97); Platelet Count 238 10^3/ul (150-450); Red Blood Count 3.55 10^6/ul (4.00-5.40); Red Cell Distribution Width 19 % (10.5-15); White Blood Count 12.2 10^3/ul (3.5-10.8)
[2018-10-31] MEDS ORDERED: Midazolam* 1 MG/ML 5 ML VIAL (5 MG) ONE (11:10)
[2018-10-31] MEDS ORDERED: fentaNYL* 50 MCG/ML 5 ML VIAL (250 MCG VIAL) ONE (11:10)
[2018-10-31] MEDS ORDERED: KETAMINE HCL* 50 MG/ML 10 ML VIAL ONE (11:10)
[2018-10-31] MEDS ORDERED: Atracurium* 10 MG/ML 10 ML VIAL ONE ×2 (11:10→13:50)
[2018-10-31 11:12] LABS: INR 1.19 (0.77-1.02)
[2018-10-31 11:26] LABS: EGFR Non-African American 72.8 (>60)
[2018-10-31 11:34] LABS: Vancomycin Trough 25.3 mcg/mL
[2018-10-31 11:35] LABS: ABS Basophils 0 10^3/ul (0-0.2); ABS Eosinophils 0 10^3/ul (0-0.6); ABS Lymphocytes 0.6 10^3/ul (1.0-4.8); ABS Neutrophils 10.6 10^3/ul (1.5-7.7); ABS Nucleated RBC 0 10^3/ul; Eosinophil % 0.2 %; Lymphocyte % 4.7 %; Nucleated Red Blood Cells % 0
[2018-10-31] MEDS ORDERED: ceFAZolin 2 GM PREMIX in ORs 2 GM/50 ML BAG IVPB ONE (11:55)
[2018-10-31] MEDS ORDERED: Thrombin 5,000 UNITS* 1 APPLIC KIT - topical use - TOPICAL ONE (11:59)
[2018-10-31] MEDS ORDERED: Bacitracin IV* 50,000 UNITS INJ ONE (11:59)
[2018-10-31] MEDS ORDERED: Lidocaine 1% MPF wEPI 200,000* 30 ML SDV ONE (11:59)
--- NOTE | 2018-10-31 12:23 | PN ---
Progress Note - Progress Note Date of Service: 10/31/18 SOAP: Subjective: []No events ON. Voids. NPO. Feels LEs are numb. Cannot ambulate to go to bathroom. Pain even when turning in bed. Objective: []VSS AAOx3 EDUARDO, CN II-XII grossly intact. Motor 4-/5 all extremities, except KE, HF bilateral 3-4/5. Unable to elevate LEs above bed, poor effort/ pain with movement of LEs. Sensory grossly intact to light touch. Assessment: []73 yof L3-4 discitis, epidural abscess Plan: []Monitor VS, Neuorchecks, OR today Discussed in extend with patient regarding treatment options, surgical approaches and risks and benefits of each approach. Patient was offered the option of surgical intervention for stabilization of spine with instrumentation and possible decompression. All conversation was done in terms that were easily understood by the patient. After explaining in extend the risks and benefits, expectations, limitations and possible complications of the procedure to the patient with complications including but not limited to bleeding, infection, risk of injury to adjacent structures, coma, paralysis, , need for additional procedures, stroke, blindness, cancer, instability, hardware failure , misplacement, injury to large vessels, abdominal organs, adjacent level disease, pseudoarthrosis, proximal junctional kyphosis, spinal fluid leak, need for additional procedures, anesthesia risks, patient understood and was agreeable to proceed with surgical intervention and informed consent was obtained. She understood that she may required prolonged hospitalization, ICU stay, tracheostomy, gastrostomy and reoperations for infection or hematoma evacuation or other reasons. Patient understood that her condition may not improve and in fact may get worse after surgery and that may need additional procedures in the future. She also understood that the operative plan may be modified according to intraoperative findings and conditions and may be abandoned or done in more than one stages. Multiple attempts were made to contact patient's sister Jovany Castro by phone and message was left in the voice mail. Tabitha Freeman MD
--- NOTE | 2018-10-31 13:29 | PN ---
Subjective Date of Service: 10/31/18 Interval History: Resting in bed on assessment. Reports low back pain with movement. Pain does not radiate. Denies weakness or loss of bowel or bladder. Reports feet are stiff and have decrease sensation which has not changed since admission. Denies cp, palpitations, sob, n/v/d, headache, visual changes. Objective Active Medications: Acetaminophen (Tylenol Tab*) 650 mg PO Q4H PRN PRN Reason: FEVER Last Admin: 10/30/18 23:31 Dose: 650 mg Calcium Carbonate (Tums*) 500 mg PO TID PRN PRN Reason: HEARTBURN Stop: 10/31/18 18:06 Last Admin: 10/30/18 23:13 Dose: 500 mg Dextrose (D50w Syringe 50 Ml*) 12.5 gm IV PUSH .FOR FS < 60 - SS PRN PRN Reason: FS < 60 Dimenhydrinate (Dramamine Iv*) 12.5 mg IV PUSH ONCE PRN PRN Reason: NAUSEA/VOMITING Fentanyl Citrate (Fentanyl*) 25 mcg IV Q5M PRN PRN Reason: PAIN - MODERATE Sodium Chloride (Ns 0.9% 1000 Ml*) 1,000 mls @ 100 mls/hr IV PER RATE ZANE Last Admin: 10/30/18 02:54 Dose: 100 mls/hr Vancomycin HCl 1,250 mg/ (Sodium Chloride) 250 mls @ 166.667 mls/hr IVPB Q12H [facility] Insulin Human Lispro (Humalog*) 0 units SUBCUT Q6HR [facility]; Protocol Last Admin: 10/31/18 05:16 Dose: Not Given Morphine Sulfate (Morphine Vial*) 4 mg IV Q4H PRN PRN Reason: PAIN - MILD Last Admin: 10/31/18 10:52 Dose: 4 mg Morphine Sulfate (Morphine Vial*) 2 mg IV Q5M PRN PRN Reason: PAIN Naloxone HCl (Narcan*) 0.08 mg IV Q2M PRN PRN Reason: severe induced resp depression Pharmacy Consult (Vancomycin Per Pharmacy*) 1 note FOLLOW UP . PRN PRN Reason: PER PROTOCOL Pharmacy Profile Note (Vancomycin Trough Check) 1 note FOLLOW UP 0600 ONE Stop: 11/02/18 06:01 Prochlorperazine Edisylate (Compazine Inj*) 2.5 mg IV ONCE PRN PRN Reason: NAUSEA/VOMITING Vital Signs - 8 hr 10/31/18 10/31/18 10/31/18 06:22 07:22 07:53 Temperature 97.2 F Pulse Rate 69 Respiratory 22 17 16 Rate Blood Pressure 145/53 (mmHg) O2 Sat by Pulse 99 Oximetry 10/31/18 10/31/18 08:00 10:52 Temperature Pulse Rate Respiratory 16 17 Rate Blood Pressure (mmHg) O2 Sat by Pulse 99 Oximetry Oxygen Devices in Use Now: None Appearance: Well appearing, NAD Eyes: No Scleral Icterus, PERRLA Ears/Nose/Mouth/Throat: Clear Oropharnyx, Mucous Membranes Moist Neck: NL Appearance and Movements; NL JVP Respiratory: Symmetrical Chest Expansion and Respiratory Effort, Clear to Auscultation Cardiovascular: NL Sounds; No Murmurs; No JVD, RRR, No Edema Abdominal: NL Sounds; No Tenderness; No Distention Lymphatic: No Cervical Adenopathy Extremities: No Edema Skin: No Rash or Ulcers, - - Incision to right hip benign. Incision to left breast benign. Neurological: Alert and Oriented x 3, NL Sensation, NL Muscle Strength and Tone Nutrition: - - NPO for surgery Result Diagrams: 10/31/18 09:00 10/31/18 10:45 Additional Lab and Data: Laboratory Results - last 24 hr 10/30/18 10/30/18 10/30/18 07:03 16:51 18:00 WBC RBC Hgb 8.7 L Hct 30 L MCV MCH MCHC RDW Plt Count MPV Neut % (Auto) Lymph % (Auto) Beauregard % (Auto) Eos % (Auto) Baso % (Auto) Absolute Neuts (auto) Absolute Lymphs (auto) Absolute Monos (auto) Absolute Eos (auto) Absolute Basos (auto) Absolute Nucleated RBC Nucleated RBC % INR (Anticoag Therapy) Sodium Potassium Chloride Carbon Dioxide Anion Gap BUN Creatinine Est GFR ( Amer) Est GFR (Non-Af Amer) BUN/Creatinine Ratio Glucose POC Glucose (mg/dL) 169 H Calcium Vancomycin Trough Blood Type A Positive Antibody Screen Negative Crossmatch See Detail 10/30/18 10/31/18 10/31/18 23:25 05:09 06:10 WBC RBC Hgb Hct MCV MCH MCHC RDW Plt Count MPV Neut % (Auto) Lymph % (Auto) Beauregard % (Auto) Eos % (Auto) Baso % (Auto) Absolute Neuts (auto) Absolute Lymphs (auto) Absolute Monos (auto) Absolute Eos (auto) Absolute Basos (auto) Absolute Nucleated RBC Nucleated RBC % INR (Anticoag Therapy) Sodium Potassium Chloride Carbon Dioxide Anion Gap BUN Creatinine Est GFR ( Amer) Est GFR (Non-Af Amer) BUN/Creatinine Ratio Glucose POC Glucose (mg/dL) 171 H 144 H Calcium Vancomycin Trough 9.8 Blood Type Antibody Screen Crossmatch 10/31/18 10/31/18 10/31/18 06:10 06:10 06:10 WBC 6.9 RBC 6.75 H Hgb 15.8 Hct 51 H MCV 75 L MCH 24 L MCHC 31 RDW 20 H Plt Count 107 L MPV 8.3 Neut % (Auto) 89.6 Lymph % (Auto) 4.8 Beauregard % (Auto) 5.2 Eos % (Auto) 0.2 Baso % (Auto) 0.2 Absolute Neuts (auto) 6.1 Absolute Lymphs (auto) 0.3 L Absolute Monos (auto) 0.4 Absolute Eos (auto) 0 Absolute Basos (auto) 0 Absolute Nucleated RBC 0 Nucleated RBC % 0.1 INR (Anticoag Therapy) 1.20 H Sodium 132 L Potassium 3.6 Chloride 99 L Carbon Dioxide 25 Anion Gap 8 BUN 34 H Creatinine 0.92 Est GFR ( Amer) 72.8 Est GFR (Non-Af Amer) 60.2 BUN/Creatinine Ratio 37.0 H Glucose 135 H POC Glucose (mg/dL) Calcium 8.9 Vancomycin Trough Blood Type Antibody Screen Crossmatch 10/31/18 10/31/18 10/31/18 09:00 10:45 10:45 WBC 12.2 H RBC 3.55 L Hgb 8.4 L Hct 26 L MCV 74 L MCH 24 L MCHC 32 RDW 19 H Plt Count 238 MPV 7.0 L Neut % (Auto) 86.9 Lymph % (Auto) 4.7 Beauregard % (Auto) 8.0 Eos % (Auto) 0.2 Baso % (Auto) 0.2 Absolute Neuts (auto) 10.6 H Absolute Lymphs (auto) 0.6 L Absolute Monos (auto) 1.0 H Absolute Eos (auto) 0 Absolute Basos (auto) 0 Absolute Nucleated RBC 0 Nucleated RBC % 0 INR (Anticoag Therapy) 1.19 H Sodium 134 L Potassium 3.8 Chloride 100 L Carbon Dioxide 24 Anion Gap 10 BUN 30 H Creatinine 0.78 Est GFR ( Amer) 88.1 Est GFR (Non-Af Amer) 72.8 BUN/Creatinine Ratio 38.5 H Glucose 131 H POC Glucose (mg/dL) Calcium 8.9 Vancomycin Trough 25.3 Blood Type Antibody Screen Crossmatch Microbiology and Other Data: Microbiology 10/30/18 00:15 Urine Urine Culture - Final Strep Group B 10/29/18 20:45 Blood Venous Aerobic Blood Culture - Preliminary Strep Agalactiae - (Group B) 10/29/18 20:45 Blood Venous Anaerobic Blood Culture - Preliminary Strep Agalactiae - (Group B) 10/29/18 20:45 Blood Venous Blood MRSA/MSSA (PCR) - Final Mrsa Negative S.aureus Negative 10/29/18 21:35 Blood Venous Aerobic Blood Culture - Preliminary Strep Agalactiae - (Group B) 10/29/18 21:35 Blood Venous Anaerobic Blood Culture - Preliminary Strep Agalactiae - (Group B) 10/29/18 21:35 Blood Venous Blood MRSA/MSSA (PCR) - Final Mrsa Negative S.aureus Negative Diagnostic Imaging: . EKG Data: EKG similar to that of June 2016. No acute changes. Assess/Plan/Problems-Billing Assessment: 73 yr old female s/p right total hip replacement in jul 2018, DM2, breast ca, htn, total left knee replacement who presented to the ed with low back discomfort since 10/21 and was found to have possible L3 to L5 epidural abscess - Patient Problems (1) Epidural abscess Comment: - WBC documented at 6.2 this morning, but lab error. Redraw reveals 12.2. - Afebrile - Blood cultures and urine grew Strep Agalactiae (Group B) - Continue vanco - ID consulting - Surgery today with Dr Junior (2) SANJANA (acute kidney injury) Comment: - Creatine 0.92 today - Receiving IV fluids and nephrotoxic medications held. - Repeat tomorrow (3) HTN (hypertension) Comment: - Normotensive - Cont to hold lisinopril, lasix, and hctz due to elevated creatinine, hyponatremia, and upcoming surgery (4) Hyponatremia Comment: - Na 134 today up from 129 on admission - Cont NS - Cont to hold lasix and hctz (5) Type II diabetes mellitus Comment: - Hold metformin and Januvia - Cont sliding scale - If creatinine dose not improve patient may need lantus instead of home medications (6) Spine instability Comment: - Per neurosurg possibly instability due to L3-4 diskitis - Bedrest with commode - Surg today (7) Full code status Comment: - Full Code (8) DVT prophylaxis Comment: - SCDs only - Hold Heparin per Neurosurg. - May order DVT proph 1 to 2 days after surgery per neurosurg (9) Constipation Comment: - Reports last BM 4 days ago. - BSx4 and reports passing flatus. - Bowel regime to be initiated after surgery Status and Disposition: Inpatient. Surg today.
[2018-10-31] MEDS ORDERED: fentaNYL* 50 MCG/ML 2 ML VIAL (100 MCG VIAL) ONE ×2 (14:16→17:55)
[2018-10-31] MEDS ORDERED: Morphine VIAL* 10 MG/ML 1 ML VIAL ONE (15:42)
[2018-10-31] MEDS ORDERED: Ondansetron INJ* 2 MG/ML VIAL ONE (16:44)
[2018-10-31] MEDS ORDERED: PROCHLORPERAZINE INJ 5 MG/ML 2 ML VIAL ONE (16:44)
[2018-10-31] MEDS ORDERED: Glycopyrrolate IV* 0.2 MG/ML 1 ML VIAL ONE ×2 (16:44→16:52)
[2018-10-31] MEDS ORDERED: Neostigmine Methylsulfate* 1 MG/ML 10 ML VIAL (1 mg/ml) ONE (16:44)
[2018-10-31] MEDS ORDERED: Propofol* 10 MG/ML 20 ML BTL ONE (16:44)
[2018-10-31] MEDS ORDERED: Labetalol IV* 5 MG/ML 20 ML VIAL ONE (17:12)
[2018-10-31] MEDS ORDERED: ceFAZolin 1 GM VIAL(*) ONE (17:27)
[2018-10-31] MEDS ORDERED: Vancomycin(*) 1,250 MG in NS 0.9% 250 ML* 250 ML IVPB SCH (18:00)
[2018-10-31] MEDS: fentaNYL* 50 MCG/ML 2 ML VIAL (100 MCG VIAL) IV PRN ×4 (18:02→20:12)
[2018-10-31] MEDS ORDERED: Morphine VIAL* 4 MG/ML VIAL (1 ml vial) ONE (18:59)
[2018-10-31] MEDS: HYDROcodone/ACETAMIN 5-325 MG* 1 TAB PO PRN (22:32)
[2018-11-01] MEDS: HYDROcodone/ACETAMIN 5-325 MG* 1 TAB PO PRN ×4 (02:48→23:13)
[2018-11-01] MEDS: Insulin LISPRO* 1 UNITS UNIT SUBCUT SCH ×3 (03:58→17:54)
[2018-11-01] MEDS: Acetaminophen TAB* 325 MG PO PRN (06:30)
[2018-11-01] MEDS: Morphine VIAL* 4 MG/ML VIAL (1 ml vial) IV PRN ×3 (06:42→21:27)
[2018-11-01 06:45] LABS: ABS Basophils 0 10^3/ul (0-0.2); ABS Eosinophils 0 10^3/ul (0-0.6); ABS Lymphocytes 0.8 10^3/ul (1.0-4.8); ABS Monocytes 0.8 10^3/ul (0-0.8); ABS Neutrophils 9.4 10^3/ul (1.5-7.7); ABS Nucleated RBC 0 10^3/ul; Eosinophil % 0.4 %; Hematocrit 23 % (35-47); Hemoglobin 7.3 g/dl (12.0-16.0); Lymphocyte % 7.1 %; Mean Corpuscular HGB Conc 32 g/dl (31-36); Mean Corpuscular Hemoglobin 24 pg (27-31); Mean Corpuscular Volume 75 fL (80-97); Nucleated Red Blood Cells % 0; Platelet Count 238 10^3/ul (150-450); Red Blood Count 3.08 10^6/ul (4.00-5.40); Red Cell Distribution Width 19 % (10.5-15)
[2018-11-01 07:31] LABS: EGFR Non-African American 86.8 (>60)
--- NOTE | 2018-11-01 08:11 | PN ---
Progress Note - Progress Note Date of Service: 11/01/18 SOAP: Subjective: [S/p L3-4 decompression and fusion with instrumentation, POD #1. Complains of lower extremity weakness, low back pain. ] Objective: [ Vital Signs: Temp Pulse Resp BP Pulse Ox 98.2 F 72 18 131/49 98 11/01/18 07:22 11/01/18 07:22 11/01/18 07:59 11/01/18 07:22 11/01/18 07:22 General: Alert and NAD. Neuro: Bilateral lower extremity weakness persistent, unchanged since preop. Sensation intact. Wound drain output 10/31/18 11/01/18 11/01/18 22:40 02:00 05:48 Output, CHAPITO #1 10 5 1 ] Assessment: [Stable post-op.] Plan: [1. PT evaluation today 2. Standing lumbar XR today 3. Continue pain management ]
[2018-11-01] MEDS: Magnesium Hydroxide LIQ* 30 ML UDC PO SCH ×2 (09:48→21:27)
[2018-11-01] MEDS ORDERED: Permethrin 1% LOTION* 59 ML BTL TOPICAL ONE (09:54)
--- NOTE | 2018-11-01 10:12 | OP ---
DATE OF OPERATION: 10/31/18 - ROOM #335 DATE OF : 49 SURGEON: Estephania Freeman MD [employer] TEACHER: JOVANNI Jamison. The case was done with the assistance of surgical PA because of the complexity of the case, Debi Chaudhary. ANESTHESIA: General. PRE-OP DIAGNOSES: L3-4 diskitis, instability; epidural abscess. POST-OP DIAGNOSES: L3-4 diskitis, instability; epidural abscess. OPERATIVE PROCEDURE: The patient underwent a minimally invasive L3-4 arthrodesis with L3 and L4 bilateral pedicle screw placement, DBX putty. L3 and L4 compressive laminectomies and evacuation of epidural abscess with intraoperative navigation. ESTIMATED BLOOD LOSS: 30 cc. COMPLICATIONS: None. SUMMARY: The patient is a very pleasant 73-year-old female who presented with 2 weeks of back pain, chills and fevers with recent history of hip replacement. The patient had MRI findings consistent with L3-4 diskitis and epidural abscess. The patient had significant weakness in both lower extremities, was not able to lift her lower extremities and was not able to ambulate. She was offered the option of surgical intervention for lumbar decompression and stabilization with evacuation of epidural abscess. The patient initially refused, but later she was agreeable to proceed with surgery, and after explaining the expectation; limitations; possible complications of the procedure to the patient with complications including not limited to bleeding; infection; risk of injury to adjacent structures; paralysis; ; need for additional procedure; anesthesia risk; stroke; blindness; cancer; instability; hardware failure; adjacent level disease; pseudoarthrosis; proximal junctional kyphosis; spinal fluid leak; anesthesia risk; persistent or recurrence of infection and need for additional procedures. The patient was agreeable to proceed with surgery. Informed consent was obtained. She also understood that her condition might not improve, in fact may get worse after the surgery, and in fact she may need to have additional procedures in the future. She also understood that the operative plan may be modified according to the intraoperative findings and conditions and the case may be abandoned or staged and that she may need to have a prolonged ICU stay, multiple operations, tracheostomy, gastrostomy or other medical problems. DESCRIPTION OF PROCEDURE: The patient was brought to the operating room, was placed on general anesthetic by the anesthesia team. She was carefully positioned prone on Yury table and all bony prominences were meticulously padded. Her skin was prepped and draped in the standard fashion. After appropriate surgical pause and patient identification, a small incision over the right iliac crest was made. After infiltrating the skin with local anesthetic, the incision was carried down to the subcutaneous tissue and the pin for the navigation star was secured in place. Intraoperative O-arm imaging was obtained and the patient was transferred to the navigation platform under stereotactic navigation. The trajectories of the pedicle screws were marked in the skin and 2 small skin incisions were marked on the skin. The skin incision sites were infiltrated with local anesthetic and a #10 surgical blade was used to incise the skin. The incision was carried down to the dorsal fascia with the use of Bovie cautery, and under stereotactic navigation, the pedicles of L3 and L4 were cannulated and a 6.5 x 15 mm [employer] ATS screws were placed. Then, the patient was brought to perform decompressive laminectomy from the left side, and over a series of navigator dilators, the METRx 22 mm tubular retractor was introduced and was placed over the left lamina of L3. A small amount of musculature was gently elevated with the use of Bovie cautery, and under microscopic magnification, a high-speed drill and Kerrison punch were used to fashion a laminectomy of L3 extending in both sides of the midline under the right lamina of L3. The ligamentum flavum was gently elevated and significant epidural lipomatosis and inflamed scar tissue were encountered. This was carefully dissected free and after gently retracting the thecal sac over the midline, epidural abscess was identified and cultures were obtained. The epidural abscess was meticulously evacuated, and after copious amount of irrigation, attention was brought to perform a laminectomy of L4. Vertebral retractor was gently dilated and the procedure was repeated. At the end, the thecal sac was found to be free of any passive phenomenon and epidural abscess was evacuated at both levels. After copious irrigation and confirmation of meticulous hemostasis and after meticulous inspection, a Lg drain was introduced into the epidural space to establish the wound incision, and after gentle removal of the METRx retractor and confirmation of meticulous hemostasis, the dorsal fascia opening was closed with the use of 0 interrupted Vicryl sutures. After copious irrigation and confirmation of meticulous hemostasis, two 35 mm cobalt chrome rods were introduced through the same stab wound incisions and secured with screw head caps. A second intraoperative O-arm imaging was obtained, which confirmed excellent placement of all hardware. Then, the screw head caps were secured in place, the inserters and the extension of screws were gently removed as well as the navigation star. After copious irrigation and meticulous hemostasis and meticulous inspection, the dorsal fascia was closed with 0 interrupted Vicryl suture while the subcutaneous tissues were approximated with 0 interrupted Vicryl sutures and interrupted 2-0 Vicryl sutures. The skin was then approximated with #1 Prolene suture. At the end of the procedure, all counts were reported to be correct. The patient remained hemodynamically stable throughout the case. The patient was then turned supine, was extubated and was transferred to Recovery in excellent condition, moving all extremities well. I was present and scrubbed for the entirety of the case. The case was done with the assistance of a surgical PA because of the complexity of the case. [id number]/CPS #: [id number] GUMARO
--- NOTE | 2018-11-01 11:22 | PN ---
Subjective Date of Service: 11/01/18 Interval History: On assessment patient was transfering from wheelchair to recliner with nurse and hospital aide. Patient observed having difficulty as she was in pain "all over" and "stiff" which she attributes to bedrest for 4 days. Patient successfully transfered to recliner. Patient reports "pain all over" especially in low back, bilateral knees, bilateral wrists, and right hip. Patient attributed joint pain to known arthritis and carpal tunnel exacerbated by being on bedrest. Also reports she has not had a BM in 4 to 5 days Reports tingling in toes which she reports is baseline for her Denies cp, sob, palpitations, nausea, vomiting, diarrhea, dizziness, weakness, numbness, or other associated symptoms. Objective Active Medications: Acetaminophen (Tylenol Tab*) 650 mg PO Q4H PRN PRN Reason: FEVER Last Admin: 11/01/18 06:30 Dose: 650 mg Hydrocodone Bitart/Acetaminophen (Echo 5-325 Tab*) 2 tab PO Q4H PRN PRN Reason: marked pain Last Admin: 11/01/18 07:59 Dose: 2 tab Calcium Carbonate (Tums*) 500 mg PO TID PRN PRN Reason: INDIGESTION Dextrose (D50w Syringe 50 Ml*) 12.5 gm IV PUSH .FOR FS < 60 - SS PRN PRN Reason: FS < 60 Ceftriaxone Sodium 2 gm/ (Sodium Chloride) 100 mls @ 200 mls/hr IVPB Q24H [facility] Lactated Ringer's (Lactated Ringers 1000 Ml Bag*) 1,000 mls @ 75 mls/hr IV .per rate [facility] Last Admin: 10/31/18 22:24 Dose: 75 mls/hr Insulin Human Lispro (Humalog*) 0 units SUBCUT AC [facility]; Protocol Magnesium Hydroxide (Milk Of Magnesia Liq*) 30 ml PO BID [facility] Last Admin: 11/01/18 09:48 Dose: 30 ml Morphine Sulfate (Morphine Vial*) 4 mg IV Q4H PRN PRN Reason: PAIN - MILD Last Admin: 11/01/18 06:42 Dose: 4 mg Ondansetron HCl (Zofran Inj*) 4 mg IV Q6H PRN PRN Reason: NAUSEA/VOMITING Vital Signs - 8 hr 11/01/18 11/01/18 11/01/18 06:42 07:22 07:39 Temperature 98.2 F Pulse Rate 72 Respiratory 16 16 18 Rate Blood Pressure 131/49 (mmHg) O2 Sat by Pulse 98 Oximetry 11/01/18 11/01/18 11/01/18 07:59 08:00 10:29 Temperature Pulse Rate Respiratory 18 18 18 Rate Blood Pressure (mmHg) O2 Sat by Pulse Oximetry Oxygen Devices in Use Now: Nasal Cannula Appearance: Cooperative, NAD Eyes: PERRLA Ears/Nose/Mouth/Throat: Clear Oropharnyx, Mucous Membranes Moist Neck: NL Appearance and Movements; NL JVP Respiratory: Symmetrical Chest Expansion and Respiratory Effort, Clear to Auscultation Cardiovascular: NL Sounds; No Murmurs; No JVD, RRR, No Edema Abdominal: NL Sounds; No Tenderness; No Distention Lymphatic: No Cervical Adenopathy Extremities: No Edema Skin: No Rash or Ulcers, - - Lice noted in scalp Neurological: Alert and Oriented x 3 Nutrition: Taking PO's Result Diagrams: 11/01/18 06:00 11/01/18 06:00 Additional Lab and Data: Laboratory Results - last 24 hr 10/30/18 10/31/18 10/31/18 07:03 09:00 10:45 WBC RBC Hgb Hct MCV MCH MCHC RDW Plt Count MPV Neut % (Auto) 86.9 Lymph % (Auto) 4.7 Hardy % (Auto) 8.0 Eos % (Auto) 0.2 Baso % (Auto) 0.2 Absolute Neuts (auto) 10.6 H Absolute Lymphs (auto) 0.6 L Absolute Monos (auto) 1.0 H Absolute Eos (auto) 0 Absolute Basos (auto) 0 Absolute Nucleated RBC 0 Nucleated RBC % 0 Sodium 134 L Potassium 3.8 Chloride 100 L Carbon Dioxide 24 Anion Gap 10 BUN 30 H Creatinine 0.78 Est GFR ( Amer) 88.1 Est GFR (Non-Af Amer) 72.8 BUN/Creatinine Ratio 38.5 H Glucose 131 H POC Glucose (mg/dL) Calcium 8.9 Vancomycin Trough 25.3 Blood Type A Positive Antibody Screen Negative Crossmatch See Detail 10/31/18 11/01/18 11/01/18 21:25 03:51 06:00 WBC 11.0 H RBC 3.08 L Hgb 7.3 L Hct 23 L MCV 75 L MCH 24 L MCHC 32 RDW 19 H Plt Count 238 MPV 7.0 L Neut % (Auto) 84.9 Lymph % (Auto) 7.1 Hardy % (Auto) 7.3 Eos % (Auto) 0.4 Baso % (Auto) 0.3 Absolute Neuts (auto) 9.4 H Absolute Lymphs (auto) 0.8 L Absolute Monos (auto) 0.8 Absolute Eos (auto) 0 Absolute Basos (auto) 0 Absolute Nucleated RBC 0 Nucleated RBC % 0 Sodium Potassium Chloride Carbon Dioxide Anion Gap BUN Creatinine Est GFR ( Amer) Est GFR (Non-Af Amer) BUN/Creatinine Ratio Glucose POC Glucose (mg/dL) 160 H 137 H Calcium Vancomycin Trough Blood Type Antibody Screen Crossmatch 11/01/18 06:00 WBC RBC Hgb Hct MCV MCH MCHC RDW Plt Count MPV Neut % (Auto) Lymph % (Auto) Hardy % (Auto) Eos % (Auto) Baso % (Auto) Absolute Neuts (auto) Absolute Lymphs (auto) Absolute Monos (auto) Absolute Eos (auto) Absolute Basos (auto) Absolute Nucleated RBC Nucleated RBC % Sodium 132 L Potassium 4.1 Chloride 100 L Carbon Dioxide 23 Anion Gap 9 BUN 21 Creatinine 0.67 Est GFR ( Amer) 105.0 Est GFR (Non-Af Amer) 86.8 BUN/Creatinine Ratio 31.3 H Glucose 111 H POC Glucose (mg/dL) Calcium 8.5 L Vancomycin Trough Blood Type Antibody Screen Crossmatch Microbiology and Other Data: Microbiology 10/31/18 15:15 Wound Anaerobic Culture - Preliminary 10/31/18 15:15 Wound Skin and Soft Tissue MRSA/MSSA (PCR - Final Mrsa Negative S.aureus Negative 10/31/18 15:15 Wound Gram Stain - Final 10/31/18 15:15 Wound Acid Fast Bacilli Smear - Final 10/29/18 21:35 Blood Venous Aerobic Blood Culture - Final Strep Agalactiae - (Group B) 10/29/18 21:35 Blood Venous Anaerobic Blood Culture - Final Strep Agalactiae - (Group B) 10/29/18 21:35 Blood Venous Blood MRSA/MSSA (PCR) - Final Mrsa Negative S.aureus Negative 10/29/18 20:45 Blood Venous Aerobic Blood Culture - Final Strep Agalactiae - (Group B) 10/29/18 20:45 Blood Venous Anaerobic Blood Culture - Final Strep Agalactiae - (Group B) 10/29/18 20:45 Blood Venous Blood MRSA/MSSA (PCR) - Final Mrsa Negative S.aureus Negative 10/30/18 00:15 Urine Urine Culture - Final Strep Group B Diagnostic Imaging: . EKG Data: EKG similar to that of June 2016. No acute changes. Assess/Plan/Problems-Billing Assessment: 73 yr old female s/p right total hip replacement in jul 2018, DM2, breast ca, htn, total left knee replacement who presented to the ed with low back discomfort since 10/21 and was found to have possible L3 to L5 epidural abscess. S/P L3-L4 decompression with instrumentation. - Patient Problems (1) Epidural abscess Comment: - WBC 11 - Afebrile - Blood cultures and urine grew Strep Agalactiae (Group B) - ID consulted and Vanco d/c'd and patient started on Ceftriaxone 2 gm daily. - Wound culture pending from surgery yesterday - Echo ordered for evaluate for source - Consider ANGIE - Left knee aspirated today. Awaiting cultures. (2) Status post lumbar spine operation Comment: - S/P L3-L4 decompression with instrumentation. POD#1 - Will be evaluated by PT today. - PMRU to consult for possible admission (3) SANJANA (acute kidney injury) Comment: - Creatine 0.67 today - Receiving IV fluids and nephrotoxic medications were held. - Now that creatinine is normalizing will consider restarting lisinopril if BP remains above normal. (4) HTN (hypertension) Comment: - Normotensive - Cont to hold lasix and hctz due to previously elevated creatinine, hyponatremia, and recent surgery - Consider restarting lisinopril (5) Hyponatremia Comment: - Resolved (6) Type II diabetes mellitus Comment: - Hold metformin and Januvia - Cont sliding scale (7) Anemia Comment: - Suspected anemia of chronic disease, erythropoietin ordered for further evaluation (8) Lice Comment: - Lice and eggs noted - Premethrin ordered. - May need repeat tx if not resolved (9) Constipation Comment: - Reports last BM 4 days ago. - BSx4 and reports passing flatus. - Bowel regime to be initiated (10) Full code status Comment: - Full Code (11) DVT prophylaxis Comment: - SCDs only - Hold Heparin per Neurosurg. - Contacted neuro regarding when to start dvt proph Status and Disposition: Inpatient. Surg today. Attending: Diya Goyal
[2018-11-01] MEDS: Calcium Carbonate CHEW TAB* 500 MG (TUMS) PO PRN ×2 (11:56→19:12)
[2018-11-01] MEDS: cefTRIAXone(*) 2 GM in NS 0.9% 100 ML* 100 ML IVPB SCH (11:56)
--- NOTE | 2018-11-01 13:13 | PN ---
Progress Note - Progress Note Date of Service: 11/01/18 SOAP: Subjective: CC: epidural abscess HPI: 73 year old woman with L spine VILMA s/p decompression which she tolerated well. She has a left knee replacement which is painful today and worse with weight bearing. No fever, rash, or diarrhea. Objective: Vital Signs Temp 36.9 C 11/01/18 10:15 Pulse 65 11/01/18 10:15 Resp 18 11/01/18 10:29 BP 134/43 11/01/18 10:15 Pulse Ox 99 11/01/18 10:15 Intake & Output 10/31/18 11/01/18 11/01/18 18:59 06:59 18:59 Intake Total 1700 820 Output Total 1300 556 0 Balance 400 264 0 Intake: IV Fluids 1700 300 LR 1700 300 Oral 0 520 Output: CHAPITO #1 16 Vogt 1300 540 0 Gen:awake, no distress HEENT: no thrush Heart:RRR no murmur Lungs:CTA BL Abd:+BS NTND soft Skin: no rash MSK: Left knee mild warmth, tenderness, edema Laboratory Results - last 24 hr 10/30/18 10/31/18 11/01/18 07:03 21:25 03:51 WBC RBC Hgb Hct MCV MCH MCHC RDW Plt Count MPV Neut % (Auto) Lymph % (Auto) Sierra % (Auto) Eos % (Auto) Baso % (Auto) Absolute Neuts (auto) Absolute Lymphs (auto) Absolute Monos (auto) Absolute Eos (auto) Absolute Basos (auto) Absolute Nucleated RBC Nucleated RBC % Sodium Potassium Chloride Carbon Dioxide Anion Gap BUN Creatinine Est GFR ( Amer) Est GFR (Non-Af Amer) BUN/Creatinine Ratio Glucose POC Glucose (mg/dL) 160 H 137 H Calcium Blood Type A Positive Antibody Screen Negative Crossmatch See Detail 11/01/18 11/01/18 11/01/18 06:00 06:00 11:41 WBC 11.0 H RBC 3.08 L Hgb 7.3 L Hct 23 L MCV 75 L MCH 24 L MCHC 32 RDW 19 H Plt Count 238 MPV 7.0 L Neut % (Auto) 84.9 Lymph % (Auto) 7.1 Sierra % (Auto) 7.3 Eos % (Auto) 0.4 Baso % (Auto) 0.3 Absolute Neuts (auto) 9.4 H Absolute Lymphs (auto) 0.8 L Absolute Monos (auto) 0.8 Absolute Eos (auto) 0 Absolute Basos (auto) 0 Absolute Nucleated RBC 0 Nucleated RBC % 0 Sodium 132 L Potassium 4.1 Chloride 100 L Carbon Dioxide 23 Anion Gap 9 BUN 21 Creatinine 0.67 Est GFR ( Amer) 105.0 Est GFR (Non-Af Amer) 86.8 BUN/Creatinine Ratio 31.3 H Glucose 111 H POC Glucose (mg/dL) 201 H Calcium 8.5 L Blood Type Antibody Screen Crossmatch Microbiology 10/31/18 15:15 Anaerobic Culture - Preliminary Wound Skin and Soft Tissue MRSA/MSSA (PCR - Final Mrsa Negative S.aureus Negative Gram Stain - Final Acid Fast Bacilli Smear - Final 10/29/18 21:35 Aerobic Blood Culture - Final Blood Venous Strep Agalactiae - (Group B) Anaerobic Blood Culture - Final Strep Agalactiae - (Group B) Blood MRSA/MSSA (PCR) - Final Mrsa Negative S.aureus Negative 10/29/18 20:45 Aerobic Blood Culture - Final Blood Venous Strep Agalactiae - (Group B) Anaerobic Blood Culture - Final Strep Agalactiae - (Group B) Blood MRSA/MSSA (PCR) - Final Mrsa Negative S.aureus Negative 10/30/18 00:15 Urine Culture - Final Urine Strep Group B Assessment: 1. Grp B Strep L spine epidural abscess, bacteremia. TTE pending. Left knee replacement, mildly inflamed 2. obesity 3. T2DM 4. L knee and R hip arthroplasty Plan: 1. continue ceftriaxone 2 gm iv daily, trans thoracic echo; will ask ortho to see for aspiration of left knee 35 minutes floor time >50% face to face with patient/sister discussing antibiotic plans
--- NOTE | 2018-11-01 20:06 | CONSULT ---
Consult Consult: Orthopedic Surgery Consultation Date: 11/01/18 Requesting Service: Medicine/Infectious Diseases Chief Complaint: Back pain and left knee pain. History: 73F admitted from ER with an epidural abscess now s/p spinal decompression and fusion on 10/31/18. Since that surgery she reports the development of increasing left knee pain. No injury to the knee. She reports that the knee had been doing fine prior to this. She had a left total knee [place] [address] Concepcion. She also had a recent right total hip replacement by Dr. Castanon, which she reports is not causing any pain at this time. The pain is located at theleft knee and is constant, moderate, sharp. Pain worse with ROM and lessened when rested. Review of Systems: Negative for recent visual changes, difficulty swallowing, chest pain, shortness of breath, abdominal pain, hematuria, easy bruising, diffuse weakness or lack of coordination, and diffuse rash. Positive for fevers, back pain. PMH: Type 2 diabetes, breast cancer, hypertension PSH: left total knee replacement, right total hip replacement, , bilateral carpal tunnel releases, lumpectomy Medications:, ibuprofen, potassium, hydrochlorothiazide, vitamin D, baby aspirin , ascorbic acid, metformin, januvia, Lasix, lisinopril Allergies: latex and adhesive SH: currently not working after her hip replacement. Nonsmoker. No alcohol use. FH: coronary artery disease, renal failure Physical Examination: Constitutional: Temp Pulse Resp BP Pulse Ox 98.3 F 77 20 158/62 99 11/01/18 17:24 11/01/18 17:24 11/01/18 18:21 11/01/18 17:24 11/01/18 17:24 General appearance is healthy and non-septic in no acute distress. Cardiovascular: Pulse examination demonstrates positive pedal pulses with brisk capillary refill. There are no varicosities. Abdomen: Soft and nontender Lymphatic: No lymphadenopathy appreciated. Skin: Bilateral upper and lower extremity examination demonstrates no ulcerative lesions. Psychiatric / Neurological: Appropriate affect. Alert and oriented to person, place and time. There is no significant abnormality in coordination appreciated. Normoreflexive deep tendon reflex of the affected extremity. Musculoskeletal: Bilateral upper extremities and contralateral lower extremity show full range of motion with no evidence of instability and no tenderness with palpation and 5 /5 strength. There is no gross deformity. Notably, she has no pain with right hip range of motion. The skin is intact about the left knee. There is a knee effusion. No erythema. She has pain with passive range of motion of the knee from 0-70. She is tender about the knee. 5/5 motor strength distally with intact sensation to light touch There is no global swelling, edema, or varicosities. Palpable DP pulse. Flexes and extends ankle and toes. Imaging: X-rays were obtained and show a left TKA prosthesis, no fractures Labs: WBC 11.0 CRP over 300 on admission 10/29/18 HCT 23 Platelets 238 Cr 0.67 INR 1.19 Left knee aspiration has 37,000 white blood cells. Gram stain without organisms. 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 Even though this prosthesis has been in place for almost a decade, I do think this is likely an acute hematogenous infection, given the acute onset of symptoms and her report that the knee was doing fine prior to this admission. Given this, my recommendation would be surgical intervention with an irrigation and debridement and liner exchange. I explained this to her and she verbalized understanding. We did discuss nonoperative treatment, but I feel this would be inadequate to address the infection. We discussed the risks/benefits and pros/cons of both options. - NPO at midnight for likely OR tomorrow -. Please type and crossmatch for 2 units PRBC's - Abx per ID Nghia Garcia MD
--- NOTE | 2018-11-01 20:13 | ECHO ---
Patient: ASHIA HERRERA [facility] Rec#: [id number] : 1945 Date: 11/01/2018 Age: 73y Height: 172.72 cm / 68.0 in Weight: 11.79 kg / 26.0 lbs Sex: F BSA: 0.86 Room#: 335 Admit Date#: 10/30/2018 Type: Inpatient Referring: Luanne Aguillon Reading: Ashli Mendez MD Guest Services Associate: Debi Covarrubias RDCS CC: JACINTO UP Transthoracic Echocardiogram Indication: Bacteremia BP: 144/50 HR: 70 Rhythm: NSR with PACs Findings History: +blood cultures Strep Agalactiae,DM,breast cancer,HTN,morbid pbesity. Technical Comments: The study is technically difficult. Done with patient OOB in a chair. Completed at 1416. The study is technically limited due to patient body habitus. The study was technically limited due to the patient's inability to lay in the left lateral decubitus position. Left Ventricle: The left ventricular chamber size is normal. Posterior wall hypertrophy is observed. Global left ventricular wall motion and contractility are within normal limits. The estimated ejection fraction is 55-60%. Abnormal left ventricular diastolic function is observed. Left Atrium: The left atrial chamber size is normal. Right Ventricle: The right ventricle is not well visualized. The right ventricular global systolic function is normal. Right Atrium: The right atrium is not well visualized. Aortic Valve: The aortic valve is trileaflet. There is no evidence of aortic regurgitation. There is no evidence of aortic stenosis. Mitral Valve: The mitral valve leaflets are mildly thickened. There is no evidence of mitral regurgitation. There is no evidence of mitral stenosis. Tricuspid Valve: The tricuspid valve leaflets are normal. There is trace tricuspid regurgitation. Unable to estimate the right ventricular systolic pressure. There is no tricuspid stenosis. Pulmonic Valve: The pulmonic valve appears normal. There is no evidence of pulmonic regurgitation. There is no pulmonic stenosis. Pericardium: A pericardial fat pad is visualized. Aorta: There is no dilatation of the ascending aorta. There is no dilatation of the aortic arch. There is no dilation of the aortic root. Pulmonary Artery: The main pulmonary artery appears normal. Venous: The inferior vena cava appears normal in size. There is a greater than 50% respiratory change in the inferior vena cava dimension. Conclusions The study is technically difficult. The left ventricular chamber size is normal. Global left ventricular wall motion and contractility are within normal limits. The estimated ejection fraction is 55-60%. The right ventricular global systolic function is normal. No evidence of vegetations, all valve function normally. No prior echo to compare. Measurements Name Value Normal Range RVIDd (AP) 2D 2.2 cm (0.9 - 2.6) IVSd (2D) 1 cm (0.6 - 1) LVPWd (2D) 1.1 cm (0.6 - 1) LVIDd (2D) 3.9 cm (3.6 - 5.4) LVIDs (2D) 2.4 cm - LV FS (2D) 37 % (25 - 45) Aortic Annulus 2 cm (1.4 - 2.6) Ao root diameter (2D) 3.3 cm (2.1 - 3.5) Ascending Ao 3.2 cm (2.1 - 3.4) Aortic arch 2.4 cm (1.8 - 3.4) Descending Ao 0.6 cm - LA dimension (AP) 2D 3.3 cm (2.3 - 3.8) Name Value Normal Range MV E-wave Vmax 0.5 m/sec - MV deceleration time 210 msec - MV A-wave Vmax 0.9 m/sec - MV E:A ratio 0.55 ratio - LV septal e' Vmax 0.07 m/sec - LV E:e' septal ratio 7.14 ratio - Name Value Normal Range AV Vmax 1.6 m/sec - AV VTI 32.5 cm - AV peak gradient 10.25 mmHg - AV mean gradient 4.92 mmHg - LVOT Vmax 1.4 m/sec - LVOT VTI 26.5 cm - LVOT peak gradient 7.85 mmHg - LVOT mean gradient 3.6 mmHg - Name Value Normal Range IVC diameter 2.1 cm - Name Value Normal Range PV Vmax 1.5 m/sec - PV peak gradient 8.83 mmHg -
--- NOTE | 2018-11-01 20:39 | CONS ---
CONSULTATION REPORT: DATE OF CONSULT: 11/01/18 ATTENDING PROVIDER: Nghia Garcia MD CHIEF COMPLAINT: Left knee pain. HISTORY OF PRESENT ILLNESS: Ms. Leon is a 73-year-old female who complains today of left knee pain. She is currently hospitalized for L3-4 diskitis and epidural abscess. She had an operative procedure on 10/30/[address] Freeman including a minimally invasive L3-4 arthrodesis with L3-4 bilateral pedicle screw placement, DBX putty L3 for compressive laminectomy and evacuation of epidural abscess with intraoperative navigation. Orthopedics was consulted by the infectious disease service due to new pain and inability to bear weight on her left knee. The patient states that her left knee is chronically achy, but has not been painful until she was hospitalized. Today she woke up and was unable to even walk due to left knee pain. She has a history of left total knee replacement by Dr. Concepcion 9 years ago. She has a history of right total hip replacement by Dr. Castanon, 08/17/18. Her right hip is not currently painful. During this hospital stay, blood cultures have been positive for group B strep and her wound culture from the epidural space infection was also positive for group B strep. She is being treated with ceftriaxone and vancomycin. Prior to patient's hip surgery, she was a community ambulator. Ever since, she has been using a walker or cane for ambulation. PAST MEDICAL HISTORY: Positive for type 2 diabetes; history of breast cancer, status post lumpectomy x2 and radiation therapy; hypertension; left total knee replacement [place] [address] Concepcion; bilateral carpal tunnel release; ; right total hip replacement. MEDICATIONS: At home include: 1. Ibuprofen 200 mg p.o. q.6 hours p.r.n. 2. Potassium 99 mg p.o. daily. 3. Hydrochlorothiazide 12.5 mg p.o. daily. 4. Vitamin D3 5000 units p.o. daily. 5. Aspirin 81 mg p.o. daily. 6. Ascorbic acid 1 tab p.o. daily. 7. Metformin 500 mg p.o. daily. 8. Januvia 50 p.o. daily. 9. Lasix 20 mg p.o. daily. 10. Lisinopril 30 mg p.o. daily. ALLERGIES: LATEX and TAPE. FAMILY HISTORY: Mom of coronary artery disease, dad of renal failure. SOCIAL HISTORY: The patient is a nonsmoker. She does not drink alcohol. REVIEW OF SYSTEMS: General: No fever, chills. HEENT: No change in vision, headache, head tremor. Cardio: No irregular beats or chest pain. Respiratory : No shortness of breath or cough. Abdomen: No abdominal pain, vomiting. No diarrhea. : No pain with urination. Musculoskeletal: Left knee is painful. Right knee is chronically sore. The patient has known arthritis for which she states she needs a knee replacement. It does not feel any different than normal. Right hip is nonpainful. She has no other pain in her joints. Neuro: Sensation is intact to all extremities. No numbness or paraesthesias. Hematology: No history of blood clot. Skin: No reported rash or lesions. PHYSICAL EXAM: The patient is well-appearing, no acute distress, sitting comfortably in a chair. HEENT: Normo-cephalic, atraumatic. Extraocular movements intact. Cardiac: S1, S2. Regular rate and rhythm. Respiratory: Clear to auscultation bilaterally. Abdomen: Bowel sounds normoactive. Nontender on palpation. No guarding, rigidity. Upper extremities: Skin envelope is intact. No obvious deformity, nontender to palpation. Active flexion and extension of digits without significant pain. Shoulder is nonpainful active forward flexion, abduction. Right lower extremity: Skin envelope intact. No obvious deformity. Nontender to palpation. Nonpainful flexion, extension of digits, ankle, knee and hip. Hip is with a well healing surgical incision without erythema, discharge or tenderness surrounding. Left lower extremity: The skin envelope is intact. There is no obvious kary deformity. The knee is warm and globally tender, it is nonerythematous. She does have effusion of the knee. She has nonpainful 0 to 90 degree range of motion at the knee. Beyond that degree of flexion, she is quite painful. Vascular: DP pulses are 2+ bilaterally. Neuro: Sensation is intact distally throughout extremities. PROCEDURE: Time-out was performed with nursing staff present. Risk and benefits of the procedure were discussed. The patient understands and signed consent for aspiration of her left knee. Aspiration of her left knee was performed in sterile fashion. 13 cc of cloudy yellow fluid was withdrawn and sent to the lab for cell count, culture, Gram stain. She tolerated the procedure well. ASSESSMENT: Left knee pain, probable infection of prosthetic left knee. PLAN: Left knee Synovial fluid sent to the lab for analysis. Dr. Garcia made aware of exam and aspirate findings. She was made NPO for likely washout tomorrow. Her right hip exam was not concerning today. Medicine made aware of concern for septic joint. JOVANNI YOU [id number]/[facility] #: [id number] MTDAnabell
[2018-11-02] MEDS: Ondansetron INJ* 2 MG/ML VIAL IV PRN (02:50)
[2018-11-02] MEDS: Morphine VIAL* 4 MG/ML VIAL (1 ml vial) IV PRN ×4 (02:58→18:09)
[2018-11-02] MEDS ORDERED: Vancomycin Trough Check NOTE FOLLOW UP ONE (06:00)
[2018-11-02 06:10] LABS: ABS Basophils 0.1 10^3/ul (0-0.2); ABS Eosinophils 0.1 10^3/ul (0-0.6); ABS Lymphocytes 0.7 10^3/ul (1.0-4.8); ABS Monocytes 0.8 10^3/ul (0-0.8); ABS Neutrophils 10.4 10^3/ul (1.5-7.7); ABS Nucleated RBC 0 10^3/ul; Eosinophil % 0.7 %; Hematocrit 25 % (35-47); Hemoglobin 7.8 g/dl (12.0-16.0); Mean Corpuscular HGB Conc 31 g/dl (31-36); Mean Corpuscular Hemoglobin 23 pg (27-31); Mean Corpuscular Volume 75 fL (80-97); Mean Platelet Volume 6.8 fL (7.4-10.4); Nucleated Red Blood Cells % 0.1; Platelet Count 262 10^3/ul (150-450); Red Blood Count 3.33 10^6/ul (4.00-5.40); Red Cell Distribution Width 19 % (10.5-15); White Blood Count 12.1 10^3/ul (3.5-10.8)
[2018-11-02 06:15] LABS: INR 1.24 (0.77-1.02)
[2018-11-02 06:26] LABS: EGFR Non-African American 106.7 (>60)
[2018-11-02] MEDS: Insulin LISPRO* 1 UNITS UNIT SUBCUT SCH ×2 (07:33→11:46)
[2018-11-02] MEDS: Magnesium Hydroxide LIQ* 30 ML UDC PO SCH (09:16)
[2018-11-02] MEDS: cefTRIAXone(*) 2 GM in NS 0.9% 100 ML* 100 ML IVPB SCH (11:39)
[2018-11-02] MEDS ORDERED: ceFAZolin 2 GM PREMIX in ORs 2 GM/50 ML BAG IVPB ONE (13:45)
[2018-11-02] MEDS ORDERED: HYDROmorphone INJ* 0.5 MG/0.5 ML SYRINGE ONE (13:45)
[2018-11-02] MEDS ORDERED: Morphine PCA ADULT* 5 MG/ML 30 ML ONE (14:07)
[2018-11-02] MEDS ORDERED: Morphine VIAL* 4 MG/ML VIAL (1 ml vial) ONE (18:07)
[2018-11-02] MEDS ORDERED: Vancomycin(*) 1,000 MG VIAL ONE ×3 (18:14→20:09)
[2018-11-02] MEDS ORDERED: Midazolam* 1 MG/ML 2 ML VIAL (2 MG) ONE (18:55)
[2018-11-02] MEDS ORDERED: fentaNYL* 50 MCG/ML 2 ML VIAL (100 MCG VIAL) ONE ×4 (18:55→22:05)
[2018-11-02] MEDS ORDERED: Bacitracin IV* 50,000 UNITS INJ ONE (19:34)
[2018-11-02] MEDS ORDERED: Ondansetron INJ* 2 MG/ML VIAL ONE ×2 (19:36→21:16)
[2018-11-02] MEDS ORDERED: Succinylcholine* 20 MG/ML 10 ML VIAL ONE (19:36)
[2018-11-02] MEDS ORDERED: Lidocaine 2% PF * 5 ML VIAL ONE (19:36)
[2018-11-02] MEDS ORDERED: Propofol* 10 MG/ML 20 ML BTL ONE (19:36)
[2018-11-02] MEDS ORDERED: Dexamethasone IV* 4 MG/ML 1 ML (4 MG) ONE (19:36)
--- NOTE | 2018-11-02 21:27 | PN ---
Hospitalist Progress Note Date of Service: 11/02/18 Informed by PACU staff that the patient will be in the OR until after 2200. assessment exam not completed as the patient was in surgery.
[2018-11-02] MEDS ORDERED: Bupivacaine 0.5% PF 10 ML VIAL INJ ONE (21:45)
--- NOTE | 2018-11-02 22:07 | CONS ---
ORTHOPEDIC CONSULTATION NOTE: DATE OF CONSULT: 11/02/18 HISTORY OF PRESENT ILLNESS: Ms. Leon is a 73-year-old female, who I know from July 2018, recent right total hip arthroplasty. She recently presented to the emergency room on 10/30/19 with back pain and epidural abscess. She had sepsis, growing Strep agalactiae. She was taken on 11/01/18 for spinal decompression and fusion with Dr. Freeman for the epidural abscess. The patient has complained of 48 hours of increasing left knee pain. She had total knee arthroplasty in [address] Concepcion. The patient complained of 8/10 severe left knee pain. This knee was aspirated by JOVANNI Herring, on our orthopedic team. Although the joint fluid has not grown anything yet, there was murky yellow fluid and cell count was nearly 40,000. Aspiration is indicative of infection, and the decision was made to take her to the operating room for I and D of infected total knee arthroplasty. I was interested in taking further care of my patient and Dr. Beaver graciously agreed. Dr. Concepcion was notified and was in agreement with [facility] handling her care. I discussed the risks and benefits of operative and nonoperative treatment with the patient. After reviewing the x-rays, I feel the tibial component is quite loose and malpositioned. We will plan an open I and D. She understands I will either do a polyethylene exchange or more likely an explant of all hardware and an antibiotic cement spacer. She understands the risks of surgery include but are not limited to bleeding, infection, damage to nearby structures, continued pain, need for further surgery, intraoperative fracture, nerve palsy, hardware failure or loosening, knee stiffness, loss of motion, stroke, heart attack, blood clot, and . She wishes to proceed. [id number]/[facility] #: [id number] [facility] CENTERAnabell
[2018-11-02] MEDS: fentaNYL* 50 MCG/ML 2 ML VIAL (100 MCG VIAL) IV PRN ×4 (22:10→22:35)
[2018-11-02] MEDS ORDERED: Naloxone* 0.4 MG/ML 1 ML VIAL IV PRN (22:17)
[2018-11-02] MEDS ORDERED: Metoclopramide IV* 5 MG/ML 2 ML VIAL IV PRN (22:17)
[2018-11-02] MEDS ORDERED: PROCHLORPERAZINE INJ 5 MG/ML 2 ML VIAL IV PRN (22:17)
[2018-11-02] MEDS ORDERED: HYDROmorphone INJ1* 1 MG/ML SYRINGE ONE (22:34)
[2018-11-02] MEDS: HYDROmorphone INJ1* 1 MG/ML SYRINGE IV PRN ×5 (22:43→23:22)
[2018-11-02] MEDS: HYDROcodone/ACETAMIN 5-325 MG* 1 TAB PO PRN (22:50)
[2018-11-02] MEDS ORDERED: HYDROcodone/ACETAMIN 5-325 MG* 1 TAB ONE (22:50)
[2018-11-02 22:57] LABS: Hematocrit 31 % (35-47); Hemoglobin 9.3 g/dl (12.0-16.0)
[2018-11-03] MEDS: Morphine VIAL* 4 MG/ML VIAL (1 ml vial) IV PRN ×5 (00:24→23:48)
[2018-11-03] MEDS: Insulin LISPRO* 1 UNITS UNIT SUBCUT SCH ×5 (00:45→21:21)
[2018-11-03] MEDS: Calcium Carbonate CHEW TAB* 500 MG (TUMS) PO PRN (01:19)
[2018-11-03] MEDS: Magnesium Hydroxide LIQ* 30 ML UDC PO SCH ×3 (01:23→21:21)
[2018-11-03] MEDS: HYDROcodone/ACETAMIN 5-325 MG* 1 TAB PO PRN ×5 (03:32→21:24)
--- NOTE | 2018-11-03 03:59 | PN ---
Progress Note - Progress Note Date of Service: 11/03/18 SOAP: Subjective: []Patient was seen earlier in preop prior to the OR for Left knee I&D. Patient reports some back pain. Able to sit up. Objective: []VSS Wound s,c,d Drain output noted AAOx3 EDUARDO, CN II-XII grossly intact. Motor 4-5/5 all extremities, except KE, HF bilateral 4-/5. Unable to elevate LEs above bed, poor effort/ pain with movement of LEs. Sensory grossly intact to light touch. Assessment: []73 yof POD#2 L3-4 MIS decompression, evacuation of ED abscess and stabilization Plan: []Monitor VS, Neuorchecks, OR for Left knee I&D Monitor drain output, DC drain likely in am PT/OT Rehab eval On Abx per ID. Appreciate IM/ID/Orthopedics care. Tabitha Freeman MD
[2018-11-03] MEDS ORDERED: Senna TAB PO PRN (08:54)
[2018-11-03] MEDS ORDERED: Polyethylene Glycol 3350* 17 GM PACKET PO PRN (08:54)
--- NOTE | 2018-11-03 09:06 | OP ---
DATE OF OPERATION: 11/02/18 - ROOM #[id number] DATE OF : 49 SURGEON: Alejandra Castanon MD INTERMODAL DISPATCHER: JOVANNI Pizano ANESTHESIOLOGIST: Dr. Zavala. ANESTHESIA: General. 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 OPERATIVE PROCEDURE: Left open incision and drainage of infected total knee arthroplasty with explant of hardware and antibiotic cement spacer placement. ESTIMATED BLOOD LOSS: 300 cc. SPECIMEN: Multiple cultures and some joint fluid, which were all purulent appearing and thick yellow, were sent for cultures and sensitivities to Microbiology. Orthopedic hardware was also sent to Pathology, this included the patella, tibia, and femoral component. COMPLICATIONS: None. TOURNIQUET TIME: 77 minutes. BRIEF HISTORY/INDICATION: Ms. Leon is a 73-year-old female who was admitted to [facility] Emergency Room on 10/30/18. She was found to have an epidural abscess and sepsis. She then developed 48 hours of intense left knee pain. Radiographs showed periprosthetic loosening and malalignment. Aspiration of the knee joint yielded over 35,000 white blood cells indicative of infection. I recently replaced the patient's right hip in July. This is a left total knee arthroplasty from [address] Concepcion was contacted and agreed Orthopedics from [facility] could proceed with I and D and explant. The patient was given different options. She wished to proceed with open I and D with explant and antibiotic cement spacer placement. Informed consent was obtained from the patient. She understood the risks of the surgery included, but were not limited to bleeding, infection, damage to nearby structures, continued pain, need for further surgery, intraoperative fracture, nerve palsy, cement failure or loosening, knee stiffness, loss of motion, stroke, heart attack, blood clot, and . She wished to proceed. INTRAOPERATIVE FINDINGS: Intraoperatively, the patient had copious amounts of purulent thick fluid. Her tibial component was visibly subsided and loose. This had subsided into a varus position and was grossly and visibly loose. Femoral component was not visibly loose. The patient was noted to have extreme laxity and incompetence of the MCL. We had minimal bone loss with explant of the hardware. The patient did have significant osteolysis around the entire medial femoral condyle and the intercondylar region of the distal femur. She had chronic medial tibial plateau bone loss from the subsidence and loosening. DESCRIPTION OF PROCEDURE: Ms. Leon was identified in the preanesthesia unit. Her left lower extremity was marked as the correct operative side. Informed consent was signed and placed in the chart. The patient was taken to the operating room and placed under general anesthesia. Vogt catheter had already been placed. Tourniquet was placed on the left thigh. Left lower extremity was prepped and draped in the usual sterile fashion. Preop time-out was made to correctly identify the patient, side and site. The patient was on around the clock antibiotics, so no additional antibiotics were necessary. Tourniquet was inflated and total tourniquet time for this procedure was 77 minutes. The patient's prior midline incision was incised, medial parapatellar arthrotomy was made. Immediately, we encountered at least 50 cc of purulent thick yellow joint fluid. This was collected with culture swabs and aspirated and collected with syringe. These cultures were sent to Microbiology for cultures and sensitivities. At this point, the knee was copiously irrigated with 3 L of sterile saline. Complete synovectomy was performed of any infected tissue using electrocautery. The knee was flexed up. The polyethylene was carefully removed. There was visible motion of the tibial plate. Tibial plate had subsided into a varus position with significant medial tibial plateau bone loss. Three additional liters of sterile saline with bacitracin was used to irrigate the joint. A small oscillating saw and flexible osteotomes were used to break the interface between the implant and the cement of the femoral component. A tamp was then used to carefully remove the femur. There was osteolysis of the medial femoral condyle and intercondylar notch. Very minimal bone was lost on the implant with this explant. Next, the patella was everted. Fibrous tissue was removed from around the patella. Small oscillating saw was used to carefully remove the patella. Any excess cement was removed. The tibia was subluxed anteriorly. The Autos[employer]ite tibial plate back slap was used to carefully remove the loose tibial tray. A large oscillating saw was used to make a cleanup cut of any remaining cement. Back scraper was used to remove any fibrous tissue from the tibial canal. At this point, the knee was copiously irrigated with another 3 L of sterile saline. The bone was dried. Four packages of Simplex cement with tobramycin were opened and prepared with 4 g of vancomycin powder. The cement was used to form an antibiotic cement spacer for the knee joint. Once the cement had fully cured, the knee was once again copiously irrigated. The extensor mechanism was closed using interrupted #1 Vicryl. The rest of the incision was closed in a layered fashion using 0 and 2-0 Vicryl. Skin was closed with running 3-0 nylon. The patient's anesthesia was reversed without difficulty. She was taken to the PACU in stable condition. Intended DVT prophylaxis will be per the hospitalist team. The patient is currently on IV antibiotics and has grown group B strep agalactiae from multiple sites including her blood and epidural abscess. Dr. Neff is handling her antibiotics and infectious disease decisions. This patient may well require additional washout of the knee in the future. We will of course follow her other joints including the right total hip carefully. [id number]/[facility] #: [id number] MTDD
[2018-11-03] MEDS ORDERED: Insulin LISPRO* 1 UNITS UNIT SUBCUT ONE (09:20)
[2018-11-03] MEDS: Docusate CAP* 100 MG PO SCH ×2 (10:32→21:21)
[2018-11-03] MEDS: cefTRIAXone(*) 2 GM in NS 0.9% 100 ML* 100 ML IVPB SCH (12:26)
--- NOTE | 2018-11-03 14:14 | PN ---
Progress Note - Progress Note Date of Service: 11/03/18 SOAP: Subjective: []Patient seen at bedside, alert and oriented. C/o left knee pain but overall tolerable. Objective: [] Vital Signs Temp 98.5 F 11/03/18 08:01 Pulse 79 11/03/18 08:01 Resp 20 11/03/18 12:23 BP 155/73 11/03/18 08:01 Pulse Ox 100 11/03/18 08:01 Intake & Output 11/02/18 11/03/18 11/03/18 18:59 06:59 18:59 Intake Total 450 2300 Output Total 650 625 Balance -200 1675 Intake: IV Fluids 450 2000 LR 2000 NS (0.9%) 450 Oral 300 Output: CHAPITO #1 0 Vogt 650 525 Estimated Blood Loss 100 Laboratory Results - last 24 hr 11/02/18 11/02/18 11/02/18 05:58 22:10 22:43 Hgb 9.3 L Hct 31 L POC Glucose (mg/dL) 153 H Blood Type A Positive Antibody Screen Negative Crossmatch See Detail 11/03/18 11/03/18 07:40 12:35 Hgb Hct POC Glucose (mg/dL) 157 H 164 H Blood Type Antibody Screen Crossmatch Microbiology 11/02/18 21:00 Gram Stain - Final Body Fluid Body Fluid Culture - Preliminary No Growth Day 1 Skin and Soft Tissue MRSA/MSSA (PCR - Final Mrsa Negative S.aureus Negative 11/02/18 21:00 Anaerobic Culture - Preliminary Wound - Knee Left No Growth Day 1 11/02/18 21:00 Skin and Soft Tissue MRSA/MSSA (PCR - Final Knee Left Mrsa Negative S.aureus Negative Gram Stain - Final Wound Culture - Preliminary No Growth Day 1 11/01/18 14:00 Gram Stain - Final Joint Fluid(Synovial) - Knee Left Body Fluid Culture - Preliminary No Growth Day 2 Skin and Soft Tissue MRSA/MSSA (PCR - Final Mrsa Negative S.aureus Negative 10/31/18 15:15 Anaerobic Culture - Preliminary Wound Skin and Soft Tissue MRSA/MSSA (PCR - Final Mrsa Negative S.aureus Negative Gram Stain - Final Wound Culture - Preliminary Strep Agalactiae - (Group B) Acid Fast Bacilli Smear - Final 11/02/18 21:00 Acid Fast Bacilli Smear - Final Body Fluid - Knee Left 10/29/18 21:35 Aerobic Blood Culture - Final Blood Venous Strep Agalactiae - (Group B) Anaerobic Blood Culture - Final Strep Agalactiae - (Group B) Blood MRSA/MSSA (PCR) - Final Mrsa Negative S.aureus Negative 10/29/18 20:45 Aerobic Blood Culture - Final Blood Venous Strep Agalactiae - (Group B) Anaerobic Blood Culture - Final Strep Agalactiae - (Group B) Blood MRSA/MSSA (PCR) - Final Mrsa Negative S.aureus Negative 10/30/18 00:15 Urine Culture - Final Urine Strep Group B Left knee dressings are dry and intact, POKI donned +Df left ankle sensation intact distally Assessment: []s/p explant infected LTK arthroplasty, placement of antibiotic cement spacer POD #1 Decompression epidural abscess by neurosurgery Plan: []NWB left lower extremity, post op knee immobilizer LLE at all times except for skin care/ bathing ceftriaxone 2 g q 24 hrs PMRU vs SNF rehab
[2018-11-03 14:50] LABS: Hematocrit 22 % (35-47); Hemoglobin 6.8 g/dl (12.0-16.0); Mean Corpuscular HGB Conc 32 g/dl (31-36); Mean Corpuscular Hemoglobin 24 pg (27-31); Mean Corpuscular Volume 75 fL (80-97); Platelet Count 314 10^3/ul (150-450); Red Blood Count 2.88 10^6/ul (4.00-5.40); Red Cell Distribution Width 19 % (10.5-15)
--- NOTE | 2018-11-03 15:03 | PN ---
Subjective Date of Service: 11/03/18 Interval History: Pt is feeling ok this AM. She does have intermittent moderate to severe pain in her L knee. She finally had a very large BM this AM. No CP, SOB, abdominal pain. Of note I went to see pt yesterday around 3pm and she had already been taken to OR per nursing. Rechecked at 6pm and she was still not back. Signed out to Marlo Kelly ICE SKATER who attempted to see pt however she still had not returned from OR. Pt not seen by hospitalist on 11/02/18. Objective Active Medications: Acetaminophen (Tylenol Tab*) 650 mg PO Q4H PRN PRN Reason: FEVER Last Admin: 11/01/18 06:30 Dose: 650 mg Hydrocodone Bitart/Acetaminophen (Kinsley 5-325 Tab*) 2 tab PO Q4H PRN PRN Reason: marked pain Last Admin: 11/03/18 12:23 Dose: 2 tab Calcium Carbonate (Tums*) 500 mg PO TID PRN PRN Reason: INDIGESTION Last Admin: 11/03/18 01:19 Dose: 500 mg Dextrose (D50w Syringe 50 Ml*) 12.5 gm IV PUSH .FOR FS < 60 - SS PRN PRN Reason: FS < 60 Docusate Sodium (Colace Cap*) 100 mg PO BID [facility] Last Admin: 11/03/18 10:32 Dose: Not Given Ceftriaxone Sodium 2 gm/ (Sodium Chloride) 100 mls @ 200 mls/hr IVPB Q24H [facility] Last Admin: 11/03/18 12:26 Dose: 200 mls/hr Insulin Human Lispro (Humalog*) 0 units SUBCUT [facility]; Protocol Last Admin: 11/03/18 13:04 Dose: 3 units Lactulose (Lactulose*) 30 ml PO DAILY PRN PRN Reason: CONSTIPATION Last Admin: 11/03/18 09:59 Dose: 30 ml Magnesium Hydroxide (Milk Of Magnesia Liq*) 30 ml PO BID [facility] Last Admin: 11/03/18 08:43 Dose: 30 ml Morphine Sulfate (Morphine Vial*) 4 mg IV Q4H PRN PRN Reason: PAIN - MILD Last Admin: 11/03/18 12:23 Dose: 4 mg Ondansetron HCl (Zofran Inj*) 4 mg IV Q6H PRN PRN Reason: NAUSEA/VOMITING Last Admin: 11/02/18 02:50 Dose: 4 mg Permethrin (Nix 1% Lotion*) 1 applic TOPICAL ONCE ONE Stop: 11/08/18 01:12 Polyethylene Glycol/Electrolytes (Miralax*) 17 gm PO DAILY PRN PRN Reason: CONSTIPATION Last Admin: 11/03/18 09:59 Dose: 17 gm Senna (Senokot Tab*) 1 tab PO BEDTIME PRN PRN Reason: CONSTIPATION Vital Signs - 8 hr 11/03/18 11/03/18 11/03/18 08:01 08:43 12:17 Temperature 98.5 F Pulse Rate 79 Respiratory 18 18 19 Rate Blood Pressure 155/73 (mmHg) O2 Sat by Pulse 100 Oximetry 11/03/18 11/03/18 11/03/18 12:23 13:25 14:41 Temperature Pulse Rate Respiratory 19 18 16 Rate Blood Pressure (mmHg) O2 Sat by Pulse Oximetry Oxygen Devices in Use Now: None Appearance: Elderly obese female sitting up in bed, NAD Eyes: No Scleral Icterus Ears/Nose/Mouth/Throat: Mucous Membranes Moist Respiratory: Symmetrical Chest Expansion and Respiratory Effort, Clear to Auscultation - anteriorly Cardiovascular: NL Sounds; No Murmurs; No JVD, RRR, No Edema Abdominal: NL Sounds; No Tenderness; No Distention Extremities: No Clubbing, Cyanosis, - - L knee in ENRICO wrap, cryounit and knee immobilizer Neurological: Alert and Oriented x 3 Result Diagrams: 11/03/18 14:35 11/02/18 05:58 Additional Lab and Data: Laboratory Results - last 24 hr 10/30/18 10/31/18 10/31/18 07:03 09:00 10:45 WBC RBC Hgb Hct MCV MCH MCHC RDW Plt Count MPV Neut % (Auto) 86.9 Lymph % (Auto) 4.7 Tompkins % (Auto) 8.0 Eos % (Auto) 0.2 Baso % (Auto) 0.2 Absolute Neuts (auto) 10.6 H Absolute Lymphs (auto) 0.6 L Absolute Monos (auto) 1.0 H Absolute Eos (auto) 0 Absolute Basos (auto) 0 Absolute Nucleated RBC 0 Nucleated RBC % 0 Sodium 134 L Potassium 3.8 Chloride 100 L Carbon Dioxide 24 Anion Gap 10 BUN 30 H Creatinine 0.78 Est GFR ( Amer) 88.1 Est GFR (Non-Af Amer) 72.8 BUN/Creatinine Ratio 38.5 H Glucose 131 H POC Glucose (mg/dL) Calcium 8.9 Vancomycin Trough 25.3 Blood Type A Positive Antibody Screen Negative Crossmatch See Detail 10/31/18 11/01/18 11/01/18 21:25 03:51 06:00 WBC 11.0 H RBC 3.08 L Hgb 7.3 L Hct 23 L MCV 75 L MCH 24 L MCHC 32 RDW 19 H Plt Count 238 MPV 7.0 L Neut % (Auto) 84.9 Lymph % (Auto) 7.1 Tompkins % (Auto) 7.3 Eos % (Auto) 0.4 Baso % (Auto) 0.3 Absolute Neuts (auto) 9.4 H Absolute Lymphs (auto) 0.8 L Absolute Monos (auto) 0.8 Absolute Eos (auto) 0 Absolute Basos (auto) 0 Absolute Nucleated RBC 0 Nucleated RBC % 0 Sodium Potassium Chloride Carbon Dioxide Anion Gap BUN Creatinine Est GFR ( Amer) Est GFR (Non-Af Amer) BUN/Creatinine Ratio Glucose POC Glucose (mg/dL) 160 H 137 H Calcium Vancomycin Trough Blood Type Antibody Screen Crossmatch 11/01/18 06:00 WBC RBC Hgb Hct MCV MCH MCHC RDW Plt Count MPV Neut % (Auto) Lymph % (Auto) Tompkins % (Auto) Eos % (Auto) Baso % (Auto) Absolute Neuts (auto) Absolute Lymphs (auto) Absolute Monos (auto) Absolute Eos (auto) Absolute Basos (auto) Absolute Nucleated RBC Nucleated RBC % Sodium 132 L Potassium 4.1 Chloride 100 L Carbon Dioxide 23 Anion Gap 9 BUN 21 Creatinine 0.67 Est GFR ( Amer) 105.0 Est GFR (Non-Af Amer) 86.8 BUN/Creatinine Ratio 31.3 H Glucose 111 H POC Glucose (mg/dL) Calcium 8.5 L Vancomycin Trough Blood Type Antibody Screen Crossmatch Microbiology and Other Data: Microbiology 10/31/18 15:15 Wound Anaerobic Culture - Preliminary 10/31/18 15:15 Wound Skin and Soft Tissue MRSA/MSSA (PCR - Final Mrsa Negative S.aureus Negative 10/31/18 15:15 Wound Gram Stain - Final 10/31/18 15:15 Wound Acid Fast Bacilli Smear - Final 10/29/18 21:35 Blood Venous Aerobic Blood Culture - Final Strep Agalactiae - (Group B) 10/29/18 21:35 Blood Venous Anaerobic Blood Culture - Final Strep Agalactiae - (Group B) 10/29/18 21:35 Blood Venous Blood MRSA/MSSA (PCR) - Final Mrsa Negative S.aureus Negative 10/29/18 20:45 Blood Venous Aerobic Blood Culture - Final Strep Agalactiae - (Group B) 10/29/18 20:45 Blood Venous Anaerobic Blood Culture - Final Strep Agalactiae - (Group B) 10/29/18 20:45 Blood Venous Blood MRSA/MSSA (PCR) - Final Mrsa Negative S.aureus Negative 10/30/18 00:15 Urine Urine Culture - Final Strep Group B Diagnostic Imaging: . EKG Data: EKG similar to that of June 2016. No acute changes. 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 Subsequently identified to have L prosthetic knee infection. - Patient Problems (1) Infection of prosthetic left knee joint Current Visit: Yes Status: Acute Code(s): T84.54XA - INFECT/INFLM REACTION DUE TO INTERNAL LEFT KNEE PROSTH, INIT SNOMED Code(s): 996215774 Comment: Pt is POD#1 from explant of infected hardware and antibiotic cement spacer placement. The patient's pain is relatively well controlled but at times spikes. She is NWB on the L LE. ? PMRU vs STR at discharge. (2) Anemia Current Visit: Yes Status: Acute Code(s): D64.9 - ANEMIA, UNSPECIFIED SNOMED Code(s): 177306197 Comment: Likely anemia of chronic disease in addition to small amount of acute blood loss. Will transfuse 1 unit PRBC now. Follow up CBC tomorrow. (3) Epidural abscess Current Visit: Yes Status: Acute Code(s): G06.2 - EXTRADURAL AND SUBDURAL ABSCESS, UNSPECIFIED SNOMED Code(s): 69905053 Comment: POD#3 from L3 and L4 decompressive laminectomies with evacuation of epidural abscess. She has no significant back pain at this time. Will continue ceftriaxone 2g IV daily. She will need 8 weeks of IV abx per Dr. Neff. BC have grown Group B strep. Repeat blood cultures from today pending. (4) SANJANA (acute kidney injury) Current Visit: Yes Status: Acute Code(s): N17.9 - ACUTE KIDNEY FAILURE, UNSPECIFIED SNOMED Code(s): 98181042 Comment: Pt with Cr 2x her baseline on admission to hospital. Now resolved. (5) Type II diabetes mellitus Current Visit: Yes Status: Acute Comment: Blood sugars are generally under control. Will resume metformin and januvia and continue lispro sliding scale. (6) HTN (hypertension) Current Visit: Yes Status: Acute Code(s): I10 - ESSENTIAL (PRIMARY) HYPERTENSION SNOMED Code(s): 74335526 Comment: BP is moderately elevated. Resume HCTZ and lisinopril. (7) Constipation Current Visit: Yes Status: Acute Code(s): K59.00 - CONSTIPATION, UNSPECIFIED SNOMED Code(s): 01228356 Comment: Resolved. (8) Lice Current Visit: Yes Status: Acute Code(s): B85.2 - PEDICULOSIS, UNSPECIFIED SNOMED Code(s): 730041059 Comment: S/P treatment. Repeat treatment on 11/08/18. (9) DVT prophylaxis Current Visit: Yes Status: Acute Code(s): NJT6504 - SNOMED Code(s): 860566980 Comment: Will need to discuss with neurosurgery and ortho as to when to start SQ heparin for DVT prophylaxis. (10) Full code status Current Visit: Yes Status: Acute Code(s): Z78.9 - OTHER SPECIFIED HEALTH STATUS SNOMED Code(s): 342892132 Status and Disposition: .
[2018-11-03 15:10] LABS: EGFR Non-African American 88.3 (>60)
[2018-11-03] MEDS: Lisinopril TAB* 10 MG PO SCH (16:25)
[2018-11-03] MEDS: metFORMIN* 500 MG TAB PO SCH (21:20)
--- NOTE | 2018-11-03 22:11 | PN ---
Progress Note - Progress Note Date of Service: 11/03/18 SOAP: Subjective: []No events ON. Patient tolerated procedure for Left knee I&D well yesterday. Patient reports back pain is improved. Objective: []VSS Wound s,c,d Drain output noted Drain was removed. Catheter appeared to be intact. Patient tolerated procedure well. AAOx3 EDUARDO, CN II-XII grossly intact. Motor 4-5/5 all extremities, except Rt KE, HF bilateral 4-/5. Lt LE immobilized at knee. Lt foot PF/DF, EHL 4-5/5. Able to elevate RtLE above bed , poor effort/ pain with movement of LEs. Sensory grossly intact to light touch. Assessment: []73 yof POD#3 L3-4 MIS decompression, evacuation of ED abscess and stabilization Plan: []Monitor VS, [place]onson, PT/OT Rehab eval On Abx per ID. Appreciate IM/ID/Orthopedics care. Tabitha Freeman MD []
[2018-11-04] MEDS: HYDROcodone/ACETAMIN 5-325 MG* 1 TAB PO PRN ×5 (03:20→20:24)
[2018-11-04 05:23] LABS: Hematocrit 23 % (35-47); Hemoglobin 7.1 g/dl (12.0-16.0); Mean Corpuscular HGB Conc 31 g/dl (31-36); Mean Corpuscular Hemoglobin 24 pg (27-31); Mean Corpuscular Volume 77 fL (80-97); Mean Platelet Volume 7.2 fL (7.4-10.4); Platelet Count 280 10^3/ul (150-450); Red Blood Count 2.96 10^6/ul (4.00-5.40); Red Cell Distribution Width 19 % (10.5-15); White Blood Count 16.3 10^3/ul (3.5-10.8)
[2018-11-04 05:45] LABS: EGFR Non-African American 111.3 (>60)
[2018-11-04] MEDS: Lisinopril TAB* 10 MG PO SCH (09:25)
[2018-11-04] MEDS: metFORMIN* 500 MG TAB PO SCH ×2 (09:25→20:25)
[2018-11-04] MEDS: Hydrochlorothiazide TAB* 25 MG PO SCH (09:25)
[2018-11-04] MEDS: Insulin LISPRO* 1 UNITS UNIT SUBCUT SCH ×4 (09:31→20:50)
[2018-11-04] MEDS: Docusate CAP* 100 MG PO SCH ×2 (09:33→20:27)
[2018-11-04] MEDS: Magnesium Hydroxide LIQ* 30 ML UDC PO SCH ×2 (09:33→20:28)
[2018-11-04] MEDS: CMCS:Sitagliptin (NF) 50 MG TAB PO SCH (09:38)
--- NOTE | 2018-11-04 11:36 | PN ---
Progress Note - Progress Note Date of Service: 11/04/18 SOAP: Subjective: Pt. reports significant pain L knee with movement. Objective: Vital Signs: Temp Pulse Resp BP Pulse Ox 98.0 F 79 18 151/51 99 11/04/18 07:26 11/04/18 07:26 11/04/18 11:23 11/04/18 07:26 11/04/18 07:26 Laboratory Results - last 24 hr 11/02/18 11/03/18 11/03/18 05:58 12:35 14:35 WBC RBC Hgb Hct MCV MCH MCHC RDW Plt Count MPV Sodium 131 L Potassium 4.3 Chloride 99 L Carbon Dioxide 28 Anion Gap 4 BUN 13 Creatinine 0.66 Est GFR ( Amer) 106.8 Est GFR (Non-Af Amer) 88.3 BUN/Creatinine Ratio 19.7 Glucose 245 H POC Glucose (mg/dL) 164 H Calcium 7.9 L Blood Type A Positive Antibody Screen Negative Crossmatch See Detail 11/03/18 11/03/18 11/03/18 14:35 16:25 21:08 WBC 15.0 H RBC 2.88 L Hgb 6.8 L Hct 22 L MCV 75 L MCH 24 L MCHC 32 RDW 19 H Plt Count 314 MPV 7.0 L Sodium Potassium Chloride Carbon Dioxide Anion Gap BUN Creatinine Est GFR ( Amer) Est GFR (Non-Af Amer) BUN/Creatinine Ratio Glucose POC Glucose (mg/dL) 289 H 190 H Calcium Blood Type Antibody Screen Crossmatch 11/04/18 11/04/18 05:10 05:10 WBC 16.3 H RBC 2.96 L Hgb 7.1 L Hct 23 L MCV 77 L MCH 24 L MCHC 31 RDW 19 H Plt Count 280 MPV 7.2 L Sodium 131 L Potassium 4.2 Chloride 101 Carbon Dioxide 26 Anion Gap 4 BUN 10 Creatinine 0.54 Est GFR ( Amer) 134.7 Est GFR (Non-Af Amer) 111.3 BUN/Creatinine Ratio 18.5 Glucose 157 H POC Glucose (mg/dL) Calcium 7.8 L Blood Type Antibody Screen Crossmatch Assessment: 73 yo F pod 2 s/p I and D LTKA infection with explant and antibiotic cement spacer placement. Plan: nwb lle knee immobilizer on LLE at all times. abx IV per ID plan IV abx x 6 weeks, then possible revision ltka
[2018-11-04] MEDS: cefTRIAXone(*) 2 GM in NS 0.9% 100 ML* 100 ML IVPB SCH (13:44)
--- NOTE | 2018-11-04 16:26 | PN ---
Subjective Date of Service: 11/04/18 Interval History: Pt continues to have significant pain in her L knee and back. She states she is due for pain medication. She had a BM today. She denies any SOB. Objective Active Medications: Acetaminophen (Tylenol Tab*) 650 mg PO Q4H PRN PRN Reason: FEVER Last Admin: 11/01/18 06:30 Dose: 650 mg Hydrocodone Bitart/Acetaminophen ([place] 5-325 Tab*) 2 tab PO Q4H PRN PRN Reason: marked pain Last Admin: 11/04/18 15:56 Dose: 2 tab Calcium Carbonate (Tums*) 500 mg PO TID PRN PRN Reason: INDIGESTION Last Admin: 11/03/18 01:19 Dose: 500 mg Dextrose (D50w Syringe 50 Ml*) 12.5 gm IV PUSH .FOR FS < 60 - SS PRN PRN Reason: FS < 60 Docusate Sodium (Colace Cap*) 100 mg PO BID [facility] Last Admin: 11/04/18 09:33 Dose: Not Given Hydrochlorothiazide (Hydrodiuril Tab*) 12.5 mg PO QAM [facility] Last Admin: 11/04/18 09:25 Dose: 12.5 mg Ceftriaxone Sodium 2 gm/ (Sodium Chloride) 100 mls @ 200 mls/hr IVPB Q24H [facility] Last Admin: 11/04/18 13:44 Dose: 200 mls/hr Insulin Human Lispro (Humalog*) 0 units SUBCUT [facility]; Protocol Last Admin: 11/04/18 13:47 Dose: 3 units Lactulose (Lactulose*) 30 ml PO DAILY PRN PRN Reason: CONSTIPATION Last Admin: 11/03/18 09:59 Dose: 30 ml Lisinopril (Prinivil Tab*) 30 mg PO DAILY [facility] Last Admin: 11/04/18 09:25 Dose: 30 mg Magnesium Hydroxide (Milk Of Magnesia Liq*) 30 ml PO BID [facility] Last Admin: 11/04/18 09:33 Dose: Not Given Metformin HCl (Glucophage*) 500 mg PO BID [facility] Last Admin: 11/04/18 09:25 Dose: 500 mg Morphine Sulfate (Morphine Vial*) 4 mg IV Q4H PRN PRN Reason: PAIN - MILD Last Admin: 11/03/18 23:48 Dose: 4 mg Ondansetron HCl (Zofran Inj*) 4 mg IV Q6H PRN PRN Reason: NAUSEA/VOMITING Last Admin: 11/02/18 02:50 Dose: 4 mg Permethrin (Nix 1% Lotion*) 1 applic TOPICAL ONCE ONE Stop: 11/08/18 01:12 Polyethylene Glycol/Electrolytes (Miralax*) 17 gm PO DAILY PRN PRN Reason: CONSTIPATION Last Admin: 11/03/18 09:59 Dose: 17 gm Senna (Senokot Tab*) 1 tab PO BEDTIME PRN PRN Reason: CONSTIPATION Sitagliptin Phosphate (Januvia (Nf)) [facility] [place] Protocol Last Admin: 11/04/18 09:38 Dose: Not Given Vital Signs - 8 hr 11/04/18 11/04/18 11/04/18 09:15 09:38 11:23 Temperature Pulse Rate Respiratory 18 16 18 Rate Blood Pressure (mmHg) O2 Sat by Pulse 99 Oximetry 11/04/18 11/04/18 11/04/18 11:37 13:48 15:56 Temperature 97.4 F Pulse Rate 83 Respiratory 16 18 16 Rate Blood Pressure 150/53 (mmHg) O2 Sat by Pulse 100 Oximetry Oxygen Devices in Use Now: None Appearance: Elderly female sitting up in bed, NAD Eyes: No Scleral Icterus Ears/Nose/Mouth/Throat: Mucous Membranes Moist Respiratory: Symmetrical Chest Expansion and Respiratory Effort, Clear to Auscultation Cardiovascular: NL Sounds; No Murmurs; No JVD, RRR, - - 1+ edema of the L LE Abdominal: NL Sounds; No Tenderness; No Distention Extremities: No Clubbing, Cyanosis, - - L knee immobilized, cryounit in place Skin: No Rash or Ulcers Neurological: Alert and Oriented x 3 Result Diagrams: 11/04/18 05:10 11/04/18 05:10 Additional Lab and Data: Laboratory Results - last 24 hr 10/30/18 10/31/18 10/31/18 07:03 09:00 10:45 WBC RBC Hgb Hct MCV MCH MCHC RDW Plt Count MPV Neut % (Auto) 86.9 Lymph % (Auto) 4.7 [place] % (Auto) 8.0 Eos % (Auto) 0.2 Baso % (Auto) 0.2 Absolute Neuts (auto) 10.6 H Absolute Lymphs (auto) 0.6 L Absolute Monos (auto) 1.0 H Absolute Eos (auto) 0 Absolute Basos (auto) 0 Absolute Nucleated RBC 0 Nucleated RBC % 0 Sodium 134 L Potassium 3.8 Chloride 100 L Carbon Dioxide 24 Anion Gap 10 BUN 30 H Creatinine 0.78 Est GFR ( Amer) 88.1 Est GFR (Non-Af Amer) 72.8 BUN/Creatinine Ratio 38.5 H Glucose 131 H POC Glucose (mg/dL) Calcium 8.9 Vancomycin Trough 25.3 Blood Type A Positive Antibody Screen Negative Crossmatch See Detail 10/31/18 11/01/18 11/01/18 21:25 03:51 06:00 WBC 11.0 H RBC 3.08 L Hgb 7.3 L Hct 23 L MCV 75 L MCH 24 L MCHC 32 RDW 19 H Plt Count 238 MPV 7.0 L Neut % (Auto) 84.9 Lymph % (Auto) 7.1 [place] % (Auto) 7.3 Eos % (Auto) 0.4 Baso % (Auto) 0.3 Absolute Neuts (auto) 9.4 H Absolute Lymphs (auto) 0.8 L Absolute Monos (auto) 0.8 Absolute Eos (auto) 0 Absolute Basos (auto) 0 Absolute Nucleated RBC 0 Nucleated RBC % 0 Sodium Potassium Chloride Carbon Dioxide Anion Gap BUN Creatinine Est GFR ( Amer) Est GFR (Non-Af Amer) BUN/Creatinine Ratio Glucose POC Glucose (mg/dL) 160 H 137 H Calcium Vancomycin Trough Blood Type Antibody Screen Crossmatch 11/01/18 06:00 WBC RBC Hgb Hct MCV MCH MCHC RDW Plt Count MPV Neut % (Auto) Lymph % (Auto) [place] % (Auto) Eos % (Auto) Baso % (Auto) Absolute Neuts (auto) Absolute Lymphs (auto) Absolute Monos (auto) Absolute Eos (auto) Absolute Basos (auto) Absolute Nucleated RBC Nucleated RBC % Sodium 132 L Potassium 4.1 Chloride 100 L Carbon Dioxide 23 Anion Gap 9 BUN 21 Creatinine 0.67 Est GFR ( Amer) 105.0 Est GFR (Non-Af Amer) 86.8 BUN/Creatinine Ratio 31.3 H Glucose 111 H POC Glucose (mg/dL) Calcium 8.5 L Vancomycin Trough Blood Type Antibody Screen Crossmatch Microbiology and Other Data: Microbiology 10/31/18 15:15 Wound Anaerobic Culture - Preliminary 10/31/18 15:15 Wound Skin and Soft Tissue MRSA/MSSA (PCR - Final Mrsa Negative S.aureus Negative 10/31/18 15:15 Wound Gram Stain - Final 10/31/18 15:15 Wound Acid Fast Bacilli Smear - Final 10/29/18 21:35 Blood Venous Aerobic Blood Culture - Final Strep Agalactiae - (Group B) 10/29/18 21:35 Blood Venous Anaerobic Blood Culture - Final Strep Agalactiae - (Group B) 10/29/18 21:35 Blood Venous Blood MRSA/MSSA (PCR) - Final Mrsa Negative S.aureus Negative 10/29/18 20:45 Blood Venous Aerobic Blood Culture - Final Strep Agalactiae - (Group B) 10/29/18 20:45 Blood Venous Anaerobic Blood Culture - Final Strep Agalactiae - (Group B) 10/29/18 20:45 Blood Venous Blood MRSA/MSSA (PCR) - Final Mrsa Negative S.aureus Negative 10/30/18 00:15 Urine Urine Culture - Final Strep Group B Diagnostic Imaging: . EKG Data: EKG similar to that of June 2016. No acute changes. 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 Subsequently identified to have L prosthetic knee infection. - Patient Problems (1) Infection of prosthetic left knee joint Current Visit: Yes Status: Acute Code(s): T84.54XA - INFECT/INFLM REACTION DUE TO INTERNAL LEFT KNEE PROSTH, INIT SNOMED Code(s): 719347240 Comment: Pt is POD#2 from explant of infected hardware and antibiotic cement spacer placement. The patient's pain is relatively well controlled but at times spikes. She is NWB on the L LE. ? PMRU vs STR at discharge. Will ultimately need revision L TKR but at least [address] (2) Anemia Current Visit: Yes Status: Acute Code(s): D64.9 - ANEMIA, UNSPECIFIED SNOMED Code(s): 225702563 Comment: Likely anemia of chronic disease in addition to small amount of acute blood. H/H improved slightly, will repeat CBC tomorrow. (3) Epidural abscess Current Visit: Yes Status: Acute Code(s): G06.2 - EXTRADURAL AND SUBDURAL ABSCESS, UNSPECIFIED SNOMED Code(s): 99615958 Comment: POD#4 from L3 and L4 decompressive laminectomies with evacuation of epidural abscess. Will continue ceftriaxone 2g IV daily. She will need 8 weeks of IV abx per Dr. Neff. BC have grown Group B strep. Repeat blood cultures from today pending. WBC count climbing, for now monitor and await further ID recommendations. (4) SANJANA (acute kidney injury) Current Visit: Yes Status: Acute Code(s): N17.9 - ACUTE KIDNEY FAILURE, UNSPECIFIED SNOMED Code(s): 61035188 Comment: Pt with Cr 2x her baseline on admission to hospital. Now resolved. (5) Type II diabetes mellitus Current Visit: Yes Status: Acute Comment: Blood sugars are generally under fair control. Continue metformin, januvia and continue lispro sliding scale. (6) HTN (hypertension) Current Visit: Yes Status: Acute Code(s): I10 - ESSENTIAL (PRIMARY) HYPERTENSION SNOMED Code(s): 50297435 Comment: BP is mildly elevated. Continue HCTZ and lisinopril. (7) Constipation Current Visit: Yes Status: Acute Code(s): K59.00 - CONSTIPATION, UNSPECIFIED SNOMED Code(s): 03252799 Comment: Resolved. (8) Lice Current Visit: Yes Status: Acute Code(s): B85.2 - PEDICULOSIS, UNSPECIFIED SNOMED Code(s): 598453465 Comment: S/P treatment. Repeat treatment on 11/08/18. (9) DVT prophylaxis Current Visit: Yes Status: Acute Code(s): CDB5750 - SNOMED Code(s): 694450719 Comment: Start SQ heparin BID (10) Full code status Current Visit: Yes Status: Acute Code(s): Z78.9 - OTHER SPECIFIED HEALTH STATUS SNOMED Code(s): 366461393 Status and Disposition: .
--- NOTE | 2018-11-04 16:51 | PN ---
Progress Note - Progress Note Date of Service: 11/04/18 SOAP: Subjective: [] No events ON. Patient reports back pain is improving. Objective: []VSS AAOx3 EDUARDO, CN II-XII grossly intact. Motor 4-5/5 all extremities, except Rt KE, HF bilateral 4-/5. Lt LE immobilized at knee. Lt foot PF/DF, EHL 4-5/5. Able to elevate RtLE above bed , poor effort/ pain with movement of LEs. Sensory grossly intact to light touch. Assessment: []73 yof POD#4 L3-4 MIS decompression, evacuation of ED abscess and stabilization Plan: []]Monitor VS, Hoorcedric, PT/OT Rehab eval On Abx per ID. Appreciate IM/ID/Orthopedics care. Tabitha Freeman MD
[2018-11-04] MEDS: Heparin VIAL(*) 5000 UNITS/ML VIAL (FIVE THOUSAND) SUBCUT SCH (20:26)
[2018-11-04] MEDS: Morphine VIAL* 4 MG/ML VIAL (1 ml vial) IV PRN (20:51)
[2018-11-05] MEDS: HYDROcodone/ACETAMIN 5-325 MG* 1 TAB PO PRN ×5 (01:42→20:52)
[2018-11-05 06:28] LABS: ABS Basophils 0.1 10^3/ul (0-0.2); ABS Eosinophils 0.3 10^3/ul (0-0.6); ABS Lymphocytes 0.9 10^3/ul (1.0-4.8); ABS Monocytes 0.7 10^3/ul (0-0.8); ABS Neutrophils 10.2 10^3/ul (1.5-7.7); ABS Nucleated RBC 0 10^3/ul; Eosinophil % 2.4 %; Hematocrit 23 % (35-47); Hemoglobin 7.2 g/dl (12.0-16.0); Lymphocyte % 7.2 %; Mean Corpuscular HGB Conc 31 g/dl (31-36); Mean Corpuscular Hemoglobin 24 pg (27-31); Mean Corpuscular Volume 77 fL (80-97); Mean Platelet Volume 7.3 fL (7.4-10.4); Nucleated Red Blood Cells % 0; Platelet Count 306 10^3/ul (150-450); Red Blood Count 2.99 10^6/ul (4.00-5.40); Red Cell Distribution Width 20 % (10.5-15); White Blood Count 12.2 10^3/ul (3.5-10.8)
[2018-11-05] MEDS: Lisinopril TAB* 10 MG PO SCH (09:43)
[2018-11-05] MEDS: metFORMIN* 500 MG TAB PO SCH ×2 (09:43→20:52)
[2018-11-05] MEDS: Magnesium Hydroxide LIQ* 30 ML UDC PO SCH ×2 (09:43→21:02)
[2018-11-05] MEDS: Docusate CAP* 100 MG PO SCH ×2 (09:43→21:02)
[2018-11-05] MEDS: CMCS:Sitagliptin (NF) 50 MG TAB PO SCH (09:43)
[2018-11-05] MEDS: Calcium Carbonate CHEW TAB* 500 MG (TUMS) PO PRN (09:44)
[2018-11-05] MEDS: Hydrochlorothiazide TAB* 25 MG PO SCH (09:44)
[2018-11-05] MEDS: Heparin VIAL(*) 5000 UNITS/ML VIAL (FIVE THOUSAND) SUBCUT SCH ×2 (09:45→20:54)
[2018-11-05] MEDS: Insulin LISPRO* 1 UNITS UNIT SUBCUT SCH ×4 (09:47→22:28)
[2018-11-05] MEDS: cefTRIAXone(*) 2 GM in NS 0.9% 100 ML* 100 ML IVPB SCH (12:03)
[2018-11-05] MEDS: Morphine VIAL* 4 MG/ML VIAL (1 ml vial) IV PRN (12:04)
--- NOTE | 2018-11-05 12:42 | PN ---
Progress Note - Progress Note Date of Service: 11/05/18 SOAP: Subjective: []No events ON. Back pain is improving. Objective: []]VSS AAOx3 EDUARDO, CN II-XII grossly intact. Motor 4-5/5 all extremities, except Rt KE, HF bilateral 4-/5. Lt LE immobilized at knee. Lt foot PF/DF, EHL 4-5/5. Able to elevate RtLE above bed , poor effort/ pain with movement of LEs. Sensory grossly intact to light touch. Assessment: []73 yof POD#5 L3-4 MIS decompression, evacuation of ED abscess and stabilization Plan: [] Monitor VS, Neuorchecésars, PT/OT Rehab eval On Abx per ID. Appreciate IM/ID/Orthopedics care. Tabitah Freeman MD
--- NOTE | 2018-11-05 12:46 | PN ---
Progress Note - Progress Note Date of Service: 11/05/18 SOAP: Subjective: Pt c/o left leg pain with movement. Otherwise doing well. Denies CP, SOB, F/C. Vital Signs: Temp Pulse Resp BP Pulse Ox 98.8 F 83 16 152/50 98 11/05/18 07:47 11/05/18 07:47 11/05/18 12:04 11/05/18 07:47 11/05/18 07:47 Laboratory Last Values WBC 12.2 10^3/ul (3.5-10.8) H 11/05/18 06:00 RBC 2.99 10^6/ul (4.00-5.40) L 11/05/18 06:00 Hgb 7.2 g/dl (12.0-16.0) L 11/05/18 06:00 Hct 23 % (35-47) L 11/05/18 06:00 MCV 77 fL (80-97) L 11/05/18 06:00 MCH 24 pg (27-31) L 11/05/18 06:00 MCHC 31 g/dl (31-36) 11/05/18 06:00 RDW 20 % (10.5-15) H 11/05/18 06:00 Plt Count 306 10^3/ul (150-450) 11/05/18 06:00 MPV 7.3 fL (7.4-10.4) L 11/05/18 06:00 Neut % (Auto) 83.8 % 11/05/18 06:00 Lymph % (Auto) 7.2 % 11/05/18 06:00 [place] % (Auto) 6.0 % 11/05/18 06:00 Eos % (Auto) 2.4 % 11/05/18 06:00 Baso % (Auto) 0.6 % 11/05/18 06:00 Absolute Neuts (auto) 10.2 10^3/ul (1.5-7.7) H 11/05/18 06:00 Absolute Lymphs (auto) 0.9 10^3/ul (1.0-4.8) L 11/05/18 06:00 Absolute Monos (auto) 0.7 10^3/ul (0-0.8) 11/05/18 06:00 Absolute Eos (auto) 0.3 10^3/ul (0-0.6) 11/05/18 06:00 Absolute Basos (auto) 0.1 10^3/ul (0-0.2) 11/05/18 06:00 Absolute Nucleated RBC 0 10^3/ul 11/05/18 06:00 Nucleated RBC % 0 11/05/18 06:00 Hypochromasia 1+ 10/29/18 18:52 Anisocytosis 2+ 10/29/18 18:52 Microcytosis 1+ 10/29/18 18:52 Elliptocytes 1+ 10/29/18 18:52 INR (Anticoag Therapy) 1.24 (0.77-1.02) H 11/02/18 05:58 APTT 27.8 seconds (26.0-36.3) 10/29/18 20:45 Sodium 131 mmol/L (135-145) L 11/04/18 05:10 Potassium 4.2 mmol/L (3.5-5.0) 11/04/18 05:10 Chloride 101 mmol/L (101-111) 11/04/18 05:10 Carbon Dioxide 26 mmol/L (22-32) 11/04/18 05:10 Anion Gap 4 mmol/L (2-11) 11/04/18 05:10 BUN 10 mg/dL (6-24) 11/04/18 05:10 Creatinine 0.54 mg/dL (0.51-0.95) 11/04/18 05:10 Est GFR ( Amer) 134.7 (>60) 11/04/18 05:10 Est GFR (Non-Af Amer) 111.3 (>60) 11/04/18 05:10 BUN/Creatinine Ratio 18.5 (8-20) 11/04/18 05:10 Glucose 157 mg/dL (70-100) H 11/04/18 05:10 POC Glucose (mg/dL) 172 mg/dL (70-100) H 11/05/18 12:06 Hemoglobin A1c 7.5 % (4.0-5.6) H 10/29/18 18:52 Calcium 7.8 mg/dL (8.6-10.3) L 11/04/18 05:10 Iron < 15 ug/dL (50-212) L 10/29/18 18:52 TIBC 312 mcg/dL (250-450) 10/29/18 18:52 % Saturation 5 % (15-55) L 10/29/18 18:52 Unsat Iron Binding < 297 ug/dL 10/29/18 18:52 Transferrin 223 mg/dL (203-362) 10/29/18 18:52 Erythropoietin 46.5 mIU/mL (2.6 - 18.5) H 11/01/18 05:56 Ferritin 164.3 ng/mL (11-307) 10/29/18 18:52 Total Bilirubin 0.40 mg/dL (0.2-1.0) 10/29/18 18:52 AST 14 U/L (13-39) 10/29/18 18:52 ALT 9 U/L (7-52) 10/29/18 18:52 Alkaline Phosphatase 78 U/L (34-104) 10/29/18 18:52 C-Reactive Protein 319.50 mg/L (<8.01) H 10/29/18 18:52 Total Protein 6.3 g/dL (6.4-8.9) L 10/29/18 18:52 Albumin 2.9 g/dL (3.2-5.2) L 10/29/18 18:52 Globulin 3.4 g/dL (2-4) 10/29/18 18:52 Albumin/Globulin Ratio 0.9 (1-3) L 10/29/18 18:52 Urine Color Yellow 10/30/18 00:15 Urine Appearance Cloudy 10/30/18 00:15 Urine pH 5.0 (5-9) 10/30/18 00:15 Ur Specific [place] 1.014 (1.010-1.030) 10/30/18 00:15 Urine Protein Negative (Negative) 10/30/18 00:15 Urine Ketones Negative (Negative) 10/30/18 00:15 Urine Blood 1+ (Negative) A 10/30/18 00:15 Urine Nitrate Negative (Negative) 10/30/18 00:15 Urine Bilirubin Negative (Negative) 10/30/18 00:15 Urine Urobilinogen Negative (Negative) 10/30/18 00:15 Ur Leukocyte Esterase 2+ (Negative) A 10/30/18 00:15 Urine WBC (Auto) 2+(11-20/hpf) (Absent) A 10/30/18 00:15 Urine RBC (Auto) Absent (Absent) 10/30/18 00:15 Ur Squamous Epith Cells Present (Absent) A 10/30/18 00:15 Urine Bacteria Absent (Absent) 10/30/18 00:15 Cellular Casts Present (Absent) A 10/30/18 00:15 Hyaline Casts Present (Absent) A 10/30/18 00:15 Urine Glucose Negative (Negative) 10/30/18 00:15 Urine Ascorbic Acid * (Negative) A 10/30/18 00:15 Fluid Source Synovial fluid 11/01/18 14:00 Fluid Volume 12 mL 11/01/18 14:00 Fluid Color Reta 11/01/18 14:00 Fluid Appearance Cloudy 11/01/18 14:00 Fluid WBC 29543 /mcL (0-906484) 11/01/18 14:00 Fluid RBC 74928 /mcL 11/01/18 14:00 Fluid Tot Cell Count 100 11/01/18 14:00 Fluid Neutrophils 92 % 11/01/18 14:00 Fluid Lymphocytes 2 % 11/01/18 14:00 Fluid Monocytes 6 % 11/01/18 14:00 Fluid Cell Count Rvw By 11/01/18 14:00 Vancomycin Trough 25.3 mcg/mL 10/31/18 10:45 Blood Type A Positive 11/02/18 05:58 Antibody Screen Negative 11/02/18 05:58 Crossmatch See Detail 11/02/18 05:58 Objective: A&Ox3, NAD. Knee immobilizer intact. NVI Assessment: 73 yo female s/p I&D left TKA with explant and antibiotic cement spacer placement POD #3 Plan: NWB LLE Knee immobilizer on at all times LLE IV Abx per ID IV Abx for 6 week then possible revision TKA
--- NOTE | 2018-11-05 16:28 | PN ---
Subjective Date of Service: 11/05/18 Interval History: Patient seen in bed. awake. complains of increase feet pain (chronic) and increase diarrhea 3-4 times a day. No other concerns. Taking po. no fever or chills Past Medical History: Unchanged from Admission Objective Active Medications: Acetaminophen (Tylenol Tab*) 650 mg PO Q4H PRN PRN Reason: FEVER Last Admin: 11/01/18 06:30 Dose: 650 mg Hydrocodone Bitart/Acetaminophen ([place] 5-325 Tab*) 2 tab PO Q4H PRN PRN Reason: marked pain Last Admin: 11/05/18 09:51 Dose: 2 tab Calcium Carbonate (Tums*) 500 mg PO TID PRN PRN Reason: INDIGESTION Last Admin: 11/05/18 09:44 Dose: 500 mg Dextrose (D50w Syringe 50 Ml*) 12.5 gm IV PUSH .FOR FS < 60 - SS PRN PRN Reason: FS < 60 Docusate Sodium (Colace Cap*) 100 mg PO BID [facility] Last Admin: 11/05/18 09:43 Dose: Not Given Heparin Sodium (Porcine) (Heparin Vial(*)) 5,000 units SUBCUT Q12HR [facility] Last Admin: 11/05/18 09:45 Dose: 5,000 units Hydrochlorothiazide (Hydrodiuril Tab*) 12.5 mg PO QAM [facility] Last Admin: 11/05/18 09:44 Dose: 12.5 mg Ceftriaxone Sodium 2 gm/ (Sodium Chloride) 100 mls @ 200 mls/hr IVPB Q24H [facility] Last Admin: 11/05/18 12:03 Dose: 200 mls/hr Insulin Human Lispro (Humalog*) 0 units SUBCUT [facility]; Protocol Last Admin: 11/05/18 13:12 Dose: 3 units Lactulose (Lactulose*) 30 ml PO DAILY PRN PRN Reason: CONSTIPATION Last Admin: 11/03/18 09:59 Dose: 30 ml Lisinopril (Prinivil Tab*) 30 mg PO DAILY [facility] Last Admin: 11/05/18 09:43 Dose: 30 mg Magnesium Hydroxide (Milk Of Magnesia Liq*) 30 ml PO BID [facility] Last Admin: 11/05/18 09:43 Dose: Not Given Metformin HCl (Glucophage*) 500 mg PO BID [facility] Last Admin: 11/05/18 09:43 Dose: 500 mg Morphine Sulfate (Morphine Vial*) 4 mg IV Q4H PRN PRN Reason: PAIN - MILD Last Admin: 11/05/18 12:04 Dose: 4 mg Ondansetron HCl (Zofran Inj*) 4 mg IV Q6H PRN PRN Reason: NAUSEA/VOMITING Last Admin: 11/02/18 02:50 Dose: 4 mg Permethrin (Nix 1% Lotion*) 1 applic TOPICAL ONCE ONE Stop: 11/08/18 01:12 Polyethylene Glycol/Electrolytes (Miralax*) 17 gm PO DAILY PRN PRN Reason: CONSTIPATION Last Admin: 11/03/18 09:59 Dose: 17 gm Senna (Senokot Tab*) 1 tab PO BEDTIME PRN PRN Reason: CONSTIPATION Sitagliptin Phosphate (Januvia (Nf)) [facility] [place] Protocol Last Admin: 11/05/18 09:43 Dose: 50 mg Vital Signs - 8 hr 11/05/18 11/05/18 11/05/18 09:45 09:51 12:04 Temperature Pulse Rate Respiratory 16 16 16 Rate Blood Pressure (mmHg) O2 Sat by Pulse 98 Oximetry 11/05/18 11/05/18 11/05/18 12:07 15:24 15:44 Temperature 98.8 F 97.9 F Pulse Rate 86 91 Respiratory 16 16 Rate Blood Pressure 152/53 137/46 (mmHg) O2 Sat by Pulse 98 100 100 Oximetry Oxygen Devices in Use Now: None Appearance: Awake, alert. pale Obese Eyes: No Scleral Icterus, - - EOMI Ears/Nose/Mouth/Throat: NL Teeth, Lips, Gums Neck: NL Appearance and Movements; NL JVP, Trachea Midline Respiratory: Symmetrical Chest Expansion and Respiratory Effort, Clear to Auscultation Cardiovascular: NL Sounds; No Murmurs; No JVD, RRR, No Edema Abdominal: NL Sounds; No Tenderness; No Distention Extremities: No Edema, - - Left Knee immoblizer Neurological: Alert and Oriented x 3 Result Diagrams: 11/05/18 06:00 11/04/18 05:10 Additional Lab and Data: Laboratory Results - last 24 hr 10/30/18 10/31/18 10/31/18 07:03 09:00 10:45 WBC RBC Hgb Hct MCV MCH MCHC RDW Plt Count MPV Neut % (Auto) 86.9 Lymph % (Auto) 4.7 [place] % (Auto) 8.0 Eos % (Auto) 0.2 Baso % (Auto) 0.2 Absolute Neuts (auto) 10.6 H Absolute Lymphs (auto) 0.6 L Absolute Monos (auto) 1.0 H Absolute Eos (auto) 0 Absolute Basos (auto) 0 Absolute Nucleated RBC 0 Nucleated RBC % 0 Sodium 134 L Potassium 3.8 Chloride 100 L Carbon Dioxide 24 Anion Gap 10 BUN 30 H Creatinine 0.78 Est GFR ( Amer) 88.1 Est GFR (Non-Af Amer) 72.8 BUN/Creatinine Ratio 38.5 H Glucose 131 H POC Glucose (mg/dL) Calcium 8.9 Vancomycin Trough 25.3 Blood Type A Positive Antibody Screen Negative Crossmatch See Detail 10/31/18 11/01/18 11/01/18 21:25 03:51 06:00 WBC 11.0 H RBC 3.08 L Hgb 7.3 L Hct 23 L MCV 75 L MCH 24 L MCHC 32 RDW 19 H Plt Count 238 MPV 7.0 L Neut % (Auto) 84.9 Lymph % (Auto) 7.1 [place] % (Auto) 7.3 Eos % (Auto) 0.4 Baso % (Auto) 0.3 Absolute Neuts (auto) 9.4 H Absolute Lymphs (auto) 0.8 L Absolute Monos (auto) 0.8 Absolute Eos (auto) 0 Absolute Basos (auto) 0 Absolute Nucleated RBC 0 Nucleated RBC % 0 Sodium Potassium Chloride Carbon Dioxide Anion Gap BUN Creatinine Est GFR ( Amer) Est GFR (Non-Af Amer) BUN/Creatinine Ratio Glucose POC Glucose (mg/dL) 160 H 137 H Calcium Vancomycin Trough Blood Type Antibody Screen Crossmatch 11/01/18 06:00 WBC RBC Hgb Hct MCV MCH MCHC RDW Plt Count MPV Neut % (Auto) Lymph % (Auto) [place] % (Auto) Eos % (Auto) Baso % (Auto) Absolute Neuts (auto) Absolute Lymphs (auto) Absolute Monos (auto) Absolute Eos (auto) Absolute Basos (auto) Absolute Nucleated RBC Nucleated RBC % Sodium 132 L Potassium 4.1 Chloride 100 L Carbon Dioxide 23 Anion Gap 9 BUN 21 Creatinine 0.67 Est GFR ( Amer) 105.0 Est GFR (Non-Af Amer) 86.8 BUN/Creatinine Ratio 31.3 H Glucose 111 H POC Glucose (mg/dL) Calcium 8.5 L Vancomycin Trough Blood Type Antibody Screen Crossmatch Microbiology and Other Data: Microbiology 10/31/18 15:15 Wound Anaerobic Culture - Preliminary 10/31/18 15:15 Wound Skin and Soft Tissue MRSA/MSSA (PCR - Final Mrsa Negative S.aureus Negative 10/31/18 15:15 Wound Gram Stain - Final 10/31/18 15:15 Wound Acid Fast Bacilli Smear - Final 10/29/18 21:35 Blood Venous Aerobic Blood Culture - Final Strep Agalactiae - (Group B) 10/29/18 21:35 Blood Venous Anaerobic Blood Culture - Final Strep Agalactiae - (Group B) 10/29/18 21:35 Blood Venous Blood MRSA/MSSA (PCR) - Final Mrsa Negative S.aureus Negative 10/29/18 20:45 Blood Venous Aerobic Blood Culture - Final Strep Agalactiae - (Group B) 10/29/18 20:45 Blood Venous Anaerobic Blood Culture - Final Strep Agalactiae - (Group B) 10/29/18 20:45 Blood Venous Blood MRSA/MSSA (PCR) - Final Mrsa Negative S.aureus Negative 10/30/18 00:15 Urine Urine Culture - Final Strep Group B Diagnostic Imaging: . EKG Data: EKG similar to that of June 2016. No acute changes. 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 Subsequently identified to have L prosthetic knee infection. - Patient Problems (1) Infection of prosthetic left knee joint Current Visit: Yes Status: Acute Code(s): T84.54XA - INFECT/INFLM REACTION DUE TO INTERNAL LEFT KNEE PROSTH, INIT SNOMED Code(s): 097932133 Comment: Pt is POD#3 from explant of infected hardware and antibiotic cement spacer placement. She is NWB on the LLE. ? PMRU vs STR at discharge. Will ultimately need revision L TKR but at least [address] Will continue ceftriaxone 2g IV daily day #5 ( in addtion of 2 days of Vanco). She will need 8 weeks of IV abx per Dr. Neff. BC have grown Group B strep. Repeat blood cultures from negative. CRP 12/218 319! Will repeat and trend weekly. No ESR will order first one for tomorrow and repeat Weekly as well for trending (2) Anemia Current Visit: Yes Status: Acute Code(s): D64.9 - ANEMIA, UNSPECIFIED SNOMED Code(s): 762015351 Comment: Likely anemia of chronic disease in addition to small amount of acute blood. H/H stable. Will add iron supplementation. will add omeprazole for GI prophylaxsis (3) Epidural abscess Current Visit: Yes Status: Acute Code(s): G06.2 - EXTRADURAL AND SUBDURAL ABSCESS, UNSPECIFIED SNOMED Code(s): 60596243 Comment: POD#5 from L3 and L4 decompressive laminectomies with evacuation of epidural abscess. Will continue ceftriaxone 2g IV daily day #5 ( in addtion of 2 days of Vanco). She will need 8 weeks of IV abx per Dr. Neff. BC have grown Group B strep. Repeat blood cultures from negative. CRP 12/218 319! Will repeat and trend weekly. No ESR will order first one for tomorrow and repeat Weekly as well for trending (4) HTN (hypertension) Current Visit: Yes Status: Acute Code(s): I10 - ESSENTIAL (PRIMARY) HYPERTENSION SNOMED Code(s): 41115143 Comment: Continue HCTZ 12.5 mg daily and lisinopril 30 mg daily. (5) Lice Current Visit: Yes Status: Acute Code(s): B85.2 - PEDICULOSIS, UNSPECIFIED SNOMED Code(s): 072731842 Comment: S/P permetrin treatment. Repeat treatment on 11/08/18. (6) Type II diabetes mellitus Current Visit: Yes Status: Acute Comment: - Blood sugars are generally under fair control. - Continue metformin, januvia and continue lispro sliding scale. (7) DVT prophylaxis Current Visit: Yes Status: Acute Code(s): [id number] - SNOMED Code(s): 025502563 Comment: Start SQ heparin BID Status and Disposition: .
[2018-11-05] MEDS: Ferrous Sulfate TAB* 325 MG PO SCH (20:52)
[2018-11-06] MEDS: HYDROcodone/ACETAMIN 5-325 MG* 1 TAB PO PRN ×5 (01:00→20:03)
[2018-11-06] MEDS: Omeprazole CAP* 20 MG PO SCH (05:45)
[2018-11-06 06:45] LABS: ABS Basophils 0.1 10^3/ul (0-0.2); ABS Eosinophils 0.2 10^3/ul (0-0.6); ABS Lymphocytes 0.7 10^3/ul (1.0-4.8); ABS Monocytes 0.7 10^3/ul (0-0.8); ABS Neutrophils 8.6 10^3/ul (1.5-7.7); ABS Nucleated RBC 0 10^3/ul; Eosinophil % 2.4 %; Hematocrit 22 % (35-47); Hemoglobin 7.2 g/dl (12.0-16.0); Lymphocyte % 6.4 %; Mean Corpuscular HGB Conc 32 g/dl (31-36); Mean Corpuscular Hemoglobin 25 pg (27-31); Mean Corpuscular Volume 77 fL (80-97); Nucleated Red Blood Cells % 0.1; Platelet Count 324 10^3/ul (150-450); Red Cell Distribution Width 20 % (10.5-15); White Blood Count 10.3 10^3/ul (3.5-10.8)
[2018-11-06 07:04] LABS: EGFR Non-African American 121.6 (>60)
[2018-11-06] MEDS: Insulin LISPRO* 1 UNITS UNIT SUBCUT SCH ×4 (07:07→21:45)
[2018-11-06] MEDS: CMCS:Sitagliptin (NF) 50 MG TAB PO SCH (08:13)
[2018-11-06] MEDS: Lisinopril TAB* 10 MG PO SCH (08:13)
[2018-11-06] MEDS: Hydrochlorothiazide TAB* 25 MG PO SCH (08:13)
[2018-11-06] MEDS: Ferrous Sulfate TAB* 325 MG PO SCH ×2 (08:13→20:03)
[2018-11-06] MEDS: Magnesium Oxide TAB* 400 MG PO SCH (08:13)
[2018-11-06] MEDS: metFORMIN* 500 MG TAB PO SCH ×2 (08:13→20:03)
[2018-11-06] MEDS: Docusate CAP* 100 MG PO SCH ×2 (08:14→20:05)
[2018-11-06] MEDS: Heparin VIAL(*) 5000 UNITS/ML VIAL (FIVE THOUSAND) SUBCUT SCH ×2 (08:14→20:04)
[2018-11-06] MEDS: Magnesium Hydroxide LIQ* 30 ML UDC PO SCH ×2 (08:16→20:05)
--- NOTE | 2018-11-06 08:42 | PN ---
Progress Note - Progress Note Date of Service: 11/06/18 SOAP: Subjective: CC: epidural abscess HPI: 73 year old woman with L spine VILMA s/p decompression which she tolerated well. Left knee infected, explant and I&D. Some knee and back pain but improving. Decr appetite, no abd pain or nausea. Had 2-3 loose stools per day though none since last night. Objective: Vital Signs Temp 37.1 C 11/06/18 08:19 Pulse 77 11/06/18 08:19 Resp 18 11/06/18 08:19 BP 143/53 11/06/18 08:19 Pulse Ox 97 11/06/18 08:19 Intake & Output 11/05/18 11/06/18 11/06/18 18:59 06:59 18:59 Intake Total 120 2080 Output Total 525 2350 Balance -405 -270 Intake: Oral 120 0 Output: Vogt 525 2350 Other: Estimated Stool Amount Medium Gen:awake, no distress HEENT: no thrush Heart:RRR no murmur Lungs:CTA BL Abd:+BS NTND soft Skin: no rash MSK: Left knee wrapped, no other joint tenderness Laboratory Results - last 24 hr 11/05/18 11/05/18 11/05/18 08:34 12:06 16:30 WBC RBC Hgb Hct MCV MCH MCHC RDW Plt Count MPV Neut % (Auto) Lymph % (Auto) [place] % (Auto) Eos % (Auto) Baso % (Auto) Absolute Neuts (auto) Absolute Lymphs (auto) Absolute Monos (auto) Absolute Eos (auto) Absolute Basos (auto) Absolute Nucleated RBC Nucleated RBC % Sodium Potassium Chloride Carbon Dioxide Anion Gap BUN Creatinine Est GFR ( Amer) Est GFR (Non-Af Amer) BUN/Creatinine Ratio Glucose POC Glucose (mg/dL) 148 H 172 H 182 H Calcium Phosphorus Magnesium C-Reactive Protein 11/06/18 11/06/18 06:17 06:17 WBC 10.3 RBC 2.90 L Hgb 7.2 L Hct 22 L MCV 77 L MCH 25 L MCHC 32 RDW 20 H Plt Count 324 MPV 7.0 L Neut % (Auto) 83.8 Lymph % (Auto) 6.4 [place] % (Auto) 6.8 Eos % (Auto) 2.4 Baso % (Auto) 0.6 Absolute Neuts (auto) 8.6 H Absolute Lymphs (auto) 0.7 L Absolute Monos (auto) 0.7 Absolute Eos (auto) 0.2 Absolute Basos (auto) 0.1 Absolute Nucleated RBC 0 Nucleated RBC % 0.1 Sodium 132 L Potassium 4.3 Chloride 100 L Carbon Dioxide 25 Anion Gap 7 BUN 7 Creatinine 0.50 L Est GFR ( Amer) 147.2 Est GFR (Non-Af Amer) 121.6 BUN/Creatinine Ratio 14.0 Glucose 129 H POC Glucose (mg/dL) Calcium 8.2 L Phosphorus 4.2 Magnesium 1.7 L C-Reactive Protein 99.56 H Assessment: 1. Grp B Strep L spine epidural abscess, bacteremia, trans thoracic echo negative 2. 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 obesity 3. T2DM 4. L knee and R hip arthroplasty 5. diarrhea, resolved Plan: 1. continue ceftriaxone 2 gm iv daily, day 8/56 w weekly cbc, cmp, crp 2. DC cdif testing and precautions
--- NOTE | 2018-11-06 11:47 | PN ---
Progress Note - Progress Note Date of Service: 11/06/18 SOAP: Subjective: POD #4 Left knee I&D with explant and antibiotic spacer placement. Pt states that she is doing ok. Pain is controlled, reports some paresthesias in LLE but no numbness. Denies CP/SOB, f/c, calf pain. Objective: Vitals: Temp Pulse Resp BP Pulse Ox 98.7 F 77 16 143/53 97 12/09/14 08:19 11/06/18 08:19 11/06/18 09:48 11/06/18 08:19 11/06/18 08:19 Gen: A&Ox3, NAD at rest sitting in bed LLE: Dressing C/D/I, thigh and calf soft/NT. +f/e at ankle and MTPs. N/V intact Assessment: POD #4 Left knee I&D with explant and antibiotic spacer placement Plan: Cont NWB LLE with immobilizer on PMRU vs SNF on d/c Cont IV abx per ID
[2018-11-06] MEDS: cefTRIAXone(*) 2 GM in NS 0.9% 100 ML* 100 ML IVPB SCH (11:59)
--- NOTE | 2018-11-06 16:59 | PN ---
Subjective Date of Service: 11/06/18 Interval History: patient seen diarrhea resolved. no active bleed. she reluctantly agreed for the iron supplementation Past Medical History: Unchanged from Admission Objective Active Medications: Acetaminophen (Tylenol Tab*) 650 mg PO Q4H PRN PRN Reason: FEVER Last Admin: 11/01/18 06:30 Dose: 650 mg Hydrocodone Bitart/Acetaminophen ([place] 5-325 Tab*) 2 tab PO Q4H PRN PRN Reason: marked pain Last Admin: 11/06/18 15:07 Dose: 2 tab Calcium Carbonate (Tums*) 500 mg PO TID PRN PRN Reason: INDIGESTION Last Admin: 11/05/18 09:44 Dose: 500 mg Dextrose (D50w Syringe 50 Ml*) 12.5 gm IV PUSH .FOR FS < 60 - SS PRN PRN Reason: FS < 60 Docusate Sodium (Colace Cap*) 100 mg PO BID [facility] Last Admin: 11/06/18 08:14 Dose: Not Given Ferrous Sulfate (Ferrous Sulfate Tab*) 325 mg PO BID [facility] Last Admin: 11/06/18 08:13 Dose: 325 mg Heparin Sodium (Porcine) (Heparin Vial(*)) 5,000 units SUBCUT Q12HR [facility] Last Admin: 11/06/18 08:14 Dose: 5,000 units Heparin Sodium (Porcine) (Heparin Flush(*)) 5 ml IV FLUSH QSHIFT [facility] Last Admin: 11/06/18 08:14 Dose: 5 ml Hydrochlorothiazide (Hydrodiuril Tab*) 12.5 mg PO QAM [facility] Last Admin: 11/06/18 08:13 Dose: 12.5 mg Ceftriaxone Sodium 2 gm/ (Sodium Chloride) 100 mls @ 200 mls/hr IVPB Q24H [facility] Last Admin: 11/06/18 11:59 Dose: 200 mls/hr Insulin Human Lispro (Humalog*) 0 units SUBCUT ACHS [facility]; Protocol Last Admin: 11/06/18 12:44 Dose: 3 units Lactulose (Lactulose*) 30 ml PO DAILY PRN PRN Reason: CONSTIPATION Last Admin: 11/03/18 09:59 Dose: 30 ml Lisinopril (Prinivil Tab*) 30 mg PO DAILY [facility] Last Admin: 11/06/18 08:13 Dose: 30 mg Magnesium Hydroxide (Milk Of Magnesia Liq*) 30 ml PO BID [facility] Last Admin: 11/06/18 08:16 Dose: Not Given Magnesium Oxide (Magox 400 Tab*) 800 mg PO DAILY [facility] Last Admin: 11/06/18 08:13 Dose: 800 mg Metformin HCl (Glucophage*) 500 mg PO BID [facility] Last Admin: 11/06/18 08:13 Dose: 500 mg Omeprazole (Prilosec Cap*) 20 mg PO DAILY@0600 [facility] Last Admin: 11/06/18 05:45 Dose: 20 mg Ondansetron HCl (Zofran Inj*) 4 mg IV Q6H PRN PRN Reason: NAUSEA/VOMITING Last Admin: 11/02/18 02:50 Dose: 4 mg Permethrin (Nix 1% Lotion*) 1 applic TOPICAL ONCE ONE Stop: 11/08/18 01:12 Polyethylene Glycol/Electrolytes (Miralax*) 17 gm PO DAILY PRN PRN Reason: CONSTIPATION Last Admin: 11/03/18 09:59 Dose: 17 gm Senna (Senokot Tab*) 1 tab PO BEDTIME PRN PRN Reason: CONSTIPATION Sitagliptin Phosphate (Januvia (Nf)) 50 mg PO QAM [facility]; Protocol Last Admin: 11/06/18 08:13 Dose: 50 mg Vital Signs - 8 hr 11/06/18 11/06/18 11/06/18 09:48 11:47 11:58 Temperature 98.5 F Pulse Rate 82 Respiratory 16 18 16 Rate Blood Pressure 131/56 (mmHg) O2 Sat by Pulse 97 Oximetry 11/06/18 11/06/18 15:07 16:36 Temperature 99.3 F Pulse Rate 85 Respiratory 18 18 Rate Blood Pressure 146/48 (mmHg) O2 Sat by Pulse 100 Oximetry Oxygen Devices in Use Now: None Appearance: awake, obese,. no distress Eyes: No Scleral Icterus, - Ears/Nose/Mouth/Throat: NL Teeth, Lips, Gums, Mucous Membranes Moist Neck: NL Appearance and Movements; NL JVP, Trachea Midline Respiratory: Symmetrical Chest Expansion and Respiratory Effort, Clear to Auscultation Cardiovascular: NL Sounds; No Murmurs; No JVD Abdominal: NL Sounds; No Tenderness; No Distention Extremities: - - left knee immoblizer Neurological: Alert and Oriented x 3 Result Diagrams: 11/06/18 06:17 11/06/18 06:17 Additional Lab and Data: Laboratory Results - last 24 hr 10/30/18 10/31/18 10/31/18 07:03 09:00 10:45 WBC RBC Hgb Hct MCV MCH MCHC RDW Plt Count MPV Neut % (Auto) 86.9 Lymph % (Auto) 4.7 [place] % (Auto) 8.0 Eos % (Auto) 0.2 Baso % (Auto) 0.2 Absolute Neuts (auto) 10.6 H Absolute Lymphs (auto) 0.6 L Absolute Monos (auto) 1.0 H Absolute Eos (auto) 0 Absolute Basos (auto) 0 Absolute Nucleated RBC 0 Nucleated RBC % 0 Sodium 134 L Potassium 3.8 Chloride 100 L Carbon Dioxide 24 Anion Gap 10 BUN 30 H Creatinine 0.78 Est GFR ( Amer) 88.1 Est GFR (Non-Af Amer) 72.8 BUN/Creatinine Ratio 38.5 H Glucose 131 H POC Glucose (mg/dL) Calcium 8.9 Vancomycin Trough 25.3 Blood Type A Positive Antibody Screen Negative Crossmatch See Detail 10/31/18 11/01/18 11/01/18 21:25 03:51 06:00 WBC 11.0 H RBC 3.08 L Hgb 7.3 L Hct 23 L MCV 75 L MCH 24 L MCHC 32 RDW 19 H Plt Count 238 MPV 7.0 L Neut % (Auto) 84.9 Lymph % (Auto) 7.1 [place] % (Auto) 7.3 Eos % (Auto) 0.4 Baso % (Auto) 0.3 Absolute Neuts (auto) 9.4 H Absolute Lymphs (auto) 0.8 L Absolute Monos (auto) 0.8 Absolute Eos (auto) 0 Absolute Basos (auto) 0 Absolute Nucleated RBC 0 Nucleated RBC % 0 Sodium Potassium Chloride Carbon Dioxide Anion Gap BUN Creatinine Est GFR ( Amer) Est GFR (Non-Af Amer) BUN/Creatinine Ratio Glucose POC Glucose (mg/dL) 160 H 137 H Calcium Vancomycin Trough Blood Type Antibody Screen Crossmatch 11/01/18 06:00 WBC RBC Hgb Hct MCV MCH MCHC RDW Plt Count MPV Neut % (Auto) Lymph % (Auto) [place] % (Auto) Eos % (Auto) Baso % (Auto) Absolute Neuts (auto) Absolute Lymphs (auto) Absolute Monos (auto) Absolute Eos (auto) Absolute Basos (auto) Absolute Nucleated RBC Nucleated RBC % Sodium 132 L Potassium 4.1 Chloride 100 L Carbon Dioxide 23 Anion Gap 9 BUN 21 Creatinine 0.67 Est GFR ( Amer) 105.0 Est GFR (Non-Af Amer) 86.8 BUN/Creatinine Ratio 31.3 H Glucose 111 H POC Glucose (mg/dL) Calcium 8.5 L Vancomycin Trough Blood Type Antibody Screen Crossmatch Microbiology and Other Data: Microbiology 10/31/18 15:15 Wound Anaerobic Culture - Preliminary 10/31/18 15:15 Wound Skin and Soft Tissue MRSA/MSSA (PCR - Final Mrsa Negative S.aureus Negative 10/31/18 15:15 Wound Gram Stain - Final 10/31/18 15:15 Wound Acid Fast Bacilli Smear - Final 10/29/18 21:35 Blood Venous Aerobic Blood Culture - Final Strep Agalactiae - (Group B) 10/29/18 21:35 Blood Venous Anaerobic Blood Culture - Final Strep Agalactiae - (Group B) 10/29/18 21:35 Blood Venous Blood MRSA/MSSA (PCR) - Final Mrsa Negative S.aureus Negative 10/29/18 20:45 Blood Venous Aerobic Blood Culture - Final Strep Agalactiae - (Group B) 10/29/18 20:45 Blood Venous Anaerobic Blood Culture - Final Strep Agalactiae - (Group B) 10/29/18 20:45 Blood Venous Blood MRSA/MSSA (PCR) - Final Mrsa Negative S.aureus Negative 10/30/18 00:15 Urine Urine Culture - Final Strep Group B Diagnostic Imaging: . EKG Data: EKG similar to that of June 2016. No acute changes. 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 Subsequently identified to have L prosthetic knee infection. - Patient Problems (1) Infection of prosthetic left knee joint Current Visit: Yes Status: Acute Code(s): T84.54XA - INFECT/INFLM REACTION DUE TO INTERNAL LEFT KNEE PROSTH, INIT SNOMED Code(s): 993716995 Comment: Pt is POD#4 from explant of infected hardware and antibiotic cement spacer placement. continue NWB of LLE with immobilizer. PMRU vs STR at discharge. Will ultimately need revision L TKR but at least [address] Will continue ceftriaxone 2g IV daily day #6 ( in addtion of 2 days of Vanco). She will need 8 weeks of IV abx per Dr. Neff. BC have grown Group B strep. Repeat blood cultures from negative. CRP 10/29/18 319! downb to 99 11/06/18 and ESR 99 11/06/18. Will repeat and trend weekly. (2) Anemia Current Visit: Yes Status: Acute Code(s): D64.9 - ANEMIA, UNSPECIFIED SNOMED Code(s): 476653660 Comment: Likely anemia of chronic disease in addition to small amount of acute blood. H/H stable. Will add iron supplementation. will add omeprazole for GI prophylaxsis Will decrease lab draw to Q 3days. (3) Epidural abscess Current Visit: Yes Status: Acute Code(s): G06.2 - EXTRADURAL AND SUBDURAL ABSCESS, UNSPECIFIED SNOMED Code(s): 67628772 Comment: POD#6 from L3 and L4 decompressive laminectomies with evacuation of epidural abscess. Will continue ceftriaxone 2g IV daily day #6 ( in addtion of 2 days of Vanco). She will need 8 weeks of IV abx per Dr. Neff. BC have grown Group B strep. Repeat blood cultures from negative. CRP 10/29/18 319! downb to 99 11/06/18 and ESR 99 11/06/18. Will repeat and trend weekly. (4) HTN (hypertension) Current Visit: Yes Status: Acute Code(s): I10 - ESSENTIAL (PRIMARY) HYPERTENSION SNOMED Code(s): 54658480 Comment: Continue HCTZ 12.5 mg daily and lisinopril 30 mg daily. (5) Lice Current Visit: Yes Status: Acute Code(s): B85.2 - PEDICULOSIS, UNSPECIFIED SNOMED Code(s): 006568547 Comment: S/P permetrin treatment. Repeat treatment on 11/08/18. (6) Type II diabetes mellitus Current Visit: Yes Status: Acute Comment: - Blood sugars are generally under fair control. - Continue metformin, januvia and continue lispro sliding scale. (7) DVT prophylaxis Current Visit: Yes Status: Acute Code(s): GFB6720 - SNOMED Code(s): 249693908 Comment: Start SQ heparin BID Status and Disposition: .
[2018-11-06] MEDS: Calcium Carbonate CHEW TAB* 500 MG (TUMS) PO PRN (18:19)
[2018-11-06] MEDS: Ondansetron INJ* 2 MG/ML VIAL IV PRN (20:13)
[2018-11-07] MEDS: HYDROcodone/ACETAMIN 5-325 MG* 1 TAB PO PRN ×6 (00:18→21:41)
[2018-11-07] MEDS: Omeprazole CAP* 20 MG PO SCH (05:57)
[2018-11-07] MEDS: Docusate CAP* 100 MG PO SCH ×2 (08:29→21:31)
[2018-11-07] MEDS: Magnesium Hydroxide LIQ* 30 ML UDC PO SCH ×2 (08:29→21:31)
[2018-11-07] MEDS: Hydrochlorothiazide TAB* 25 MG PO SCH (08:45)
[2018-11-07] MEDS: Magnesium Oxide TAB* 400 MG PO SCH (08:45)
[2018-11-07] MEDS: Ferrous Sulfate TAB* 325 MG PO SCH ×2 (08:45→21:27)
[2018-11-07] MEDS: Lisinopril TAB* 10 MG PO SCH (08:45)
[2018-11-07] MEDS: metFORMIN* 500 MG TAB PO SCH ×2 (08:45→21:27)
[2018-11-07] MEDS: CMCS:Sitagliptin (NF) 50 MG TAB PO SCH (08:45)
[2018-11-07] MEDS: Heparin VIAL(*) 5000 UNITS/ML VIAL (FIVE THOUSAND) SUBCUT SCH ×2 (08:46→21:25)
[2018-11-07] MEDS: Insulin LISPRO* 1 UNITS UNIT SUBCUT SCH ×4 (09:02→21:43)
--- NOTE | 2018-11-07 11:40 | PN ---
Progress Note - Progress Note Date of Service: 11/07/18 SOAP: Subjective: []Patient was seen and examined at bedside. She feels well without complaints of knee pain, fever, chills, CP, SOB, dizziness or nausea. Objective: []Gen: NAD at rest sitting in bed LLE: Dressing C/D/I, thigh and calf soft/NT. +f/e at ankle and MTPs. N/V intact. Dressing changed with 2 assistants to support entire leg in straight position, incision CDI without erythema or discharge Assessment: POD #5 Left knee I&D with explant and antibiotic spacer placement Plan: Cont NWB LLE with immobilizer on PMRU vs SNF on d/c, awaiting placement Cont IV abx per ID, ceftriaxone acute bloodloss anemia: transfuse per medicine as deemed appropriate Vital Signs Temp 97.9 F 11/07/18 07:26 Pulse 76 11/07/18 07:26 Resp 16 11/07/18 08:50 BP 151/52 11/07/18 07:26 Pulse Ox 97 11/07/18 08:50 Intake & Output 11/06/18 11/07/18 11/07/18 18:59 06:59 18:59 Intake Total 330 560 360 Output Total 550 1950 Balance -220 -1390 360 Intake: Oral 330 560 360 Output: Urine 550 Vogt 1950 Other: Estimated Void Small # Bowel Movements 1 Estimated Stool Amount Medium Laboratory Last Values WBC 10.3 10^3/ul (3.5-10.8) 11/06/18 06:17 RBC 2.90 10^6/ul (4.00-5.40) L 11/06/18 06:17 Hgb 7.2 g/dl (12.0-16.0) L 11/06/18 06:17 Hct 22 % (35-47) L 11/06/18 06:17 MCV 77 fL (80-97) L 11/06/18 06:17 MCH 25 pg (27-31) L 11/06/18 06:17 MCHC 32 g/dl (31-36) 11/06/18 06:17 RDW 20 % (10.5-15) H 11/06/18 06:17 Plt Count 324 10^3/ul (150-450) 11/06/18 06:17 MPV 7.0 fL (7.4-10.4) L 11/06/18 06:17 Neut % (Auto) 83.8 % 11/06/18 06:17 Lymph % (Auto) 6.4 % 11/06/18 06:17 [place] % (Auto) 6.8 % 11/06/18 06:17 Eos % (Auto) 2.4 % 11/06/18 06:17 Baso % (Auto) 0.6 % 11/06/18 06:17 Absolute Neuts (auto) 8.6 10^3/ul (1.5-7.7) H 11/06/18 06:17 Absolute Lymphs (auto) 0.7 10^3/ul (1.0-4.8) L 11/06/18 06:17 Absolute Monos (auto) 0.7 10^3/ul (0-0.8) 11/06/18 06:17 Absolute Eos (auto) 0.2 10^3/ul (0-0.6) 11/06/18 06:17 Absolute Basos (auto) 0.1 10^3/ul (0-0.2) 11/06/18 06:17 Absolute Nucleated RBC 0 10^3/ul 11/06/18 06:17 Nucleated RBC % 0.1 11/06/18 06:17 Hypochromasia 1+ 10/29/18 18:52 Anisocytosis 2+ 10/29/18 18:52 Microcytosis 1+ 10/29/18 18:52 Elliptocytes 1+ 10/29/18 18:52 ESR 99 mm/Hr (0-40) H 11/06/18 06:17 INR (Anticoag Therapy) 1.24 (0.77-1.02) H 11/02/18 05:58 APTT 27.8 seconds (26.0-36.3) 10/29/18 20:45 Sodium 132 mmol/L (135-145) L 11/06/18 06:17 Potassium 4.3 mmol/L (3.5-5.0) 11/06/18 06:17 Chloride 100 mmol/L (101-111) L 11/06/18 06:17 Carbon Dioxide 25 mmol/L (22-32) 11/06/18 06:17 Anion Gap 7 mmol/L (2-11) 11/06/18 06:17 BUN 7 mg/dL (6-24) 11/06/18 06:17 Creatinine 0.50 mg/dL (0.51-0.95) L 11/06/18 06:17 Est GFR ( Amer) 147.2 (>60) 11/06/18 06:17 Est GFR (Non-Af Amer) 121.6 (>60) 11/06/18 06:17 BUN/Creatinine Ratio 14.0 (8-20) 11/06/18 06:17 Glucose 129 mg/dL (70-100) H 11/06/18 06:17 POC Glucose (mg/dL) 155 mg/dL (70-100) H 11/07/18 08:23 Hemoglobin A1c 7.5 % (4.0-5.6) H 10/29/18 18:52 Calcium 8.2 mg/dL (8.6-10.3) L 11/06/18 06:17 Phosphorus 4.2 mg/dL (2.5-5.0) 11/06/18 06:17 Magnesium 1.7 mg/dL (1.9-2.7) L 11/06/18 06:17 Iron < 15 ug/dL (50-212) L 10/29/18 18:52 TIBC 312 mcg/dL (250-450) 10/29/18 18:52 % Saturation 5 % (15-55) L 10/29/18 18:52 Unsat Iron Binding < 297 ug/dL 10/29/18 18:52 Transferrin 223 mg/dL (203-362) 10/29/18 18:52 Erythropoietin 46.5 mIU/mL (2.6 - 18.5) H 18 05:56 Ferritin 164.3 ng/mL (11-307) 10/29/18 18:52 Total Bilirubin 0.40 mg/dL (0.2-1.0) 10/29/18 18:52 AST 14 U/L (13-39) 10/29/18 18:52 ALT 9 U/L (7-52) 10/29/18 18:52 Alkaline Phosphatase 78 U/L (34-104) 10/29/18 18:52 C-Reactive Protein 99.56 mg/L (<8.01) H 11/06/18 06:17 Total Protein 6.3 g/dL (6.4-8.9) L 10/29/18 18:52 Albumin 2.9 g/dL (3.2-5.2) L 10/29/18 18:52 Globulin 3.4 g/dL (2-4) 10/29/18 18:52 Albumin/Globulin Ratio 0.9 (1-3) L 10/29/18 18:52 Urine Color Yellow 10/30/18 00:15 Urine Appearance Cloudy 10/30/18 00:15 Urine pH 5.0 (5-9) 10/30/18 00:15 Ur Specific [place] 1.014 (1.010-1.030) 10/30/18 00:15 Urine Protein Negative (Negative) 10/30/18 00:15 Urine Ketones Negative (Negative) 10/30/18 00:15 Urine Blood 1+ (Negative) A 10/30/18 00:15 Urine Nitrate Negative (Negative) 10/30/18 00:15 Urine Bilirubin Negative (Negative) 10/30/18 00:15 Urine Urobilinogen Negative (Negative) 10/30/18 00:15 Ur Leukocyte Esterase 2+ (Negative) A 10/30/18 00:15 Urine WBC (Auto) 2+(11-20/hpf) (Absent) A 10/30/18 00:15 Urine RBC (Auto) Absent (Absent) 10/30/18 00:15 Ur Squamous Epith Cells Present (Absent) A 10/30/18 00:15 Urine Bacteria Absent (Absent) 10/30/18 00:15 Cellular Casts Present (Absent) A 10/30/18 00:15 Hyaline Casts Present (Absent) A 10/30/18 00:15 Urine Glucose Negative (Negative) 10/30/18 00:15 Urine Ascorbic Acid * (Negative) A 10/30/18 00:15 Fluid Source Synovial fluid 11/01/18 14:00 Fluid Volume 12 mL 11/01/18 14:00 Fluid Color Reta 11/01/18 14:00 Fluid Appearance Cloudy 11/01/18 14:00 Fluid WBC 78884 /mcL (0-699190) 11/01/18 14:00 Fluid RBC 89823 /mcL 11/01/18 14:00 Fluid Tot Cell Count 100 11/01/18 14:00 Fluid Neutrophils 92 % 11/01/18 14:00 Fluid Lymphocytes 2 % 11/01/18 14:00 Fluid Monocytes 6 % 11/01/18 14:00 Fluid Cell Count Rvw By 11/01/18 14:00 Vancomycin Trough 25.3 mcg/mL 10/31/18 10:45 Blood Type A Positive 11/02/18 05:58 Antibody Screen Negative 11/02/18 05:58 Crossmatch See Detail 11/02/18 05:58
[2018-11-07] MEDS: cefTRIAXone(*) 2 GM in NS 0.9% 100 ML* 100 ML IVPB SCH (12:42)
[2018-11-07] MEDS: Calcium Carbonate CHEW TAB* 500 MG (TUMS) PO PRN (17:01)
--- NOTE | 2018-11-07 17:58 | PN ---
Subjective Date of Service: 11/07/18 Interval History: Patient seen today. doing better. still have diarrhea loose stool on and off. yesterday she had formed stool Hence, I am less suspicious for C-diff. Will D /C mid line and will order for picc line in am Past Medical History: Unchanged from Admission Objective Active Medications: Acetaminophen (Tylenol Tab*) 650 mg PO Q4H PRN PRN Reason: FEVER Last Admin: 11/01/18 06:30 Dose: 650 mg Hydrocodone Bitart/Acetaminophen ([place] 5-325 Tab*) 2 tab PO Q4H PRN PRN Reason: marked pain Last Admin: 11/07/18 17:01 Dose: 2 tab Calcium Carbonate (Tums*) 500 mg PO TID PRN PRN Reason: INDIGESTION Last Admin: 11/07/18 17:01 Dose: 500 mg Dextrose (D50w Syringe 50 Ml*) 12.5 gm IV PUSH .FOR FS < 60 - SS PRN PRN Reason: FS < 60 Docusate Sodium (Colace Cap*) 100 mg PO BID [facility] Last Admin: 11/07/18 08:29 Dose: Not Given Ferrous Sulfate (Ferrous Sulfate Tab*) 325 mg PO BID [facility] Last Admin: 11/07/18 08:45 Dose: 325 mg Heparin Sodium (Porcine) (Heparin Vial(*)) 5,000 units SUBCUT Q12HR [facility] Last Admin: 11/07/18 08:46 Dose: 5,000 units Heparin Sodium (Porcine) (Heparin Flush Port ([place])) 5 ml IV FLUSH QSHIFT [facility] Last Admin: 11/07/18 14:01 Dose: 1 ml Hydrochlorothiazide (Hydrodiuril Tab*) 12.5 mg PO QAM [facility] Last Admin: 11/07/18 08:45 Dose: 12.5 mg Ceftriaxone Sodium 2 gm/ (Sodium Chloride) 100 mls @ 200 mls/hr IVPB Q24H [facility] Last Admin: 11/07/18 12:42 Dose: 200 mls/hr Insulin Human Lispro (Humalog*) 0 units SUBCUT [facility]; Protocol Last Admin: 11/07/18 16:33 Dose: 3 units Lactulose (Lactulose*) 30 ml PO DAILY PRN PRN Reason: CONSTIPATION Last Admin: 11/03/18 09:59 Dose: 30 ml Lisinopril (Prinivil Tab*) 30 mg PO DAILY [facility] Last Admin: 11/07/18 08:45 Dose: 30 mg Magnesium Hydroxide (Milk Of Magnesia Liq*) 30 ml PO BID [facility] Last Admin: 11/07/18 08:29 Dose: Not Given Magnesium Oxide (Magox 400 Tab*) 800 mg PO DAILY [facility] Last Admin: 11/07/18 08:45 Dose: 800 mg Metformin HCl (Glucophage*) 500 mg PO BID [facility] Last Admin: 11/07/18 08:45 Dose: 500 mg Omeprazole (Prilosec Cap*) 20 mg PO DAILY@0600 [facility] Last Admin: 11/07/18 05:57 Dose: 20 mg Ondansetron HCl (Zofran Inj*) 4 mg IV Q6H PRN PRN Reason: NAUSEA/VOMITING Last Admin: 11/06/18 20:13 Dose: 4 mg Permethrin (Nix 1% Lotion*) 1 applic TOPICAL ONCE ONE Stop: 11/08/18 01:12 Polyethylene Glycol/Electrolytes (Miralax*) 17 gm PO DAILY PRN PRN Reason: CONSTIPATION Last Admin: 11/03/18 09:59 Dose: 17 gm Senna (Senokot Tab*) 1 tab PO BEDTIME PRN PRN Reason: CONSTIPATION Sitagliptin Phosphate (Januvia (Nf)) 50 mg PO [facility]; Protocol Last Admin: 11/07/18 08:45 Dose: 50 mg Vital Signs - 8 hr 11/07/18 11/07/18 11/07/18 11:35 12:50 12:55 Temperature 98.6 F Pulse Rate 79 Respiratory 16 16 16 Rate Blood Pressure 154/49 (mmHg) O2 Sat by Pulse 98 Oximetry 11/07/18 11/07/18 11/07/18 15:26 15:37 17:01 Temperature 98.3 F Pulse Rate 79 Respiratory 20 18 19 Rate Blood Pressure 132/41 (mmHg) O2 Sat by Pulse 100 Oximetry Oxygen Devices in Use Now: None Appearance: awake, alert no disttress Eyes: No Scleral Icterus, - - EOMI Ears/Nose/Mouth/Throat: NL Teeth, Lips, Gums, Clear Oropharnyx Neck: NL Appearance and Movements; NL JVP, Trachea Midline Respiratory: Symmetrical Chest Expansion and Respiratory Effort, Clear to Auscultation Cardiovascular: NL Sounds; No Murmurs; No JVD, RRR, - - Left knee in immobilizer Abdominal: NL Sounds; No Tenderness; No Distention Skin: No Rash or Ulcers Neurological: Alert and Oriented x 3 Result Diagrams: 11/06/18 06:17 11/06/18 06:17 Additional Lab and Data: Laboratory Results - last 24 hr 10/30/18 10/31/18 10/31/18 07:03 09:00 10:45 WBC RBC Hgb Hct MCV MCH MCHC RDW Plt Count MPV Neut % (Auto) 86.9 Lymph % (Auto) 4.7 [place] % (Auto) 8.0 Eos % (Auto) 0.2 Baso % (Auto) 0.2 Absolute Neuts (auto) 10.6 H Absolute Lymphs (auto) 0.6 L Absolute Monos (auto) 1.0 H Absolute Eos (auto) 0 Absolute Basos (auto) 0 Absolute Nucleated RBC 0 Nucleated RBC % 0 Sodium 134 L Potassium 3.8 Chloride 100 L Carbon Dioxide 24 Anion Gap 10 BUN 30 H Creatinine 0.78 Est GFR ( Amer) 88.1 Est GFR (Non-Af Amer) 72.8 BUN/Creatinine Ratio 38.5 H Glucose 131 H POC Glucose (mg/dL) Calcium 8.9 Vancomycin Trough 25.3 Blood Type A Positive Antibody Screen Negative Crossmatch See Detail 10/31/18 11/01/18 11/01/18 21:25 03:51 06:00 WBC 11.0 H RBC 3.08 L Hgb 7.3 L Hct 23 L MCV 75 L MCH 24 L MCHC 32 RDW 19 H Plt Count 238 MPV 7.0 L Neut % (Auto) 84.9 Lymph % (Auto) 7.1 [place] % (Auto) 7.3 Eos % (Auto) 0.4 Baso % (Auto) 0.3 Absolute Neuts (auto) 9.4 H Absolute Lymphs (auto) 0.8 L Absolute Monos (auto) 0.8 Absolute Eos (auto) 0 Absolute Basos (auto) 0 Absolute Nucleated RBC 0 Nucleated RBC % 0 Sodium Potassium Chloride Carbon Dioxide Anion Gap BUN Creatinine Est GFR ( Amer) Est GFR (Non-Af Amer) BUN/Creatinine Ratio Glucose POC Glucose (mg/dL) 160 H 137 H Calcium Vancomycin Trough Blood Type Antibody Screen Crossmatch 11/01/18 06:00 WBC RBC Hgb Hct MCV MCH MCHC RDW Plt Count MPV Neut % (Auto) Lymph % (Auto) [place] % (Auto) Eos % (Auto) Baso % (Auto) Absolute Neuts (auto) Absolute Lymphs (auto) Absolute Monos (auto) Absolute Eos (auto) Absolute Basos (auto) Absolute Nucleated RBC Nucleated RBC % Sodium 132 L Potassium 4.1 Chloride 100 L Carbon Dioxide 23 Anion Gap 9 BUN 21 Creatinine 0.67 Est GFR ( Amer) 105.0 Est GFR (Non-Af Amer) 86.8 BUN/Creatinine Ratio 31.3 H Glucose 111 H POC Glucose (mg/dL) Calcium 8.5 L Vancomycin Trough Blood Type Antibody Screen Crossmatch Microbiology and Other Data: Microbiology 10/31/18 15:15 Wound Anaerobic Culture - Preliminary 10/31/18 15:15 Wound Skin and Soft Tissue MRSA/MSSA (PCR - Final Mrsa Negative S.aureus Negative 10/31/18 15:15 Wound Gram Stain - Final 10/31/18 15:15 Wound Acid Fast Bacilli Smear - Final 10/29/18 21:35 Blood Venous Aerobic Blood Culture - Final Strep Agalactiae - (Group B) 10/29/18 21:35 Blood Venous Anaerobic Blood Culture - Final Strep Agalactiae - (Group B) 10/29/18 21:35 Blood Venous Blood MRSA/MSSA (PCR) - Final Mrsa Negative S.aureus Negative 10/29/18 20:45 Blood Venous Aerobic Blood Culture - Final Strep Agalactiae - (Group B) 10/29/18 20:45 Blood Venous Anaerobic Blood Culture - Final Strep Agalactiae - (Group B) 10/29/18 20:45 Blood Venous Blood MRSA/MSSA (PCR) - Final Mrsa Negative S.aureus Negative 10/30/18 00:15 Urine Urine Culture - Final Strep Group B Diagnostic Imaging: . EKG Data: EKG similar to that of June 2016. No acute changes. 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 Subsequently identified to have L prosthetic knee infection. - Patient Problems (1) Infection of prosthetic left knee joint Current Visit: Yes Status: Acute Code(s): T84.54XA - INFECT/INFLM REACTION DUE TO INTERNAL LEFT KNEE PROSTH, INIT SNOMED Code(s): 384560873 Comment: Pt is POD#5 from explant of infected hardware and antibiotic cement spacer placement. continue NWB of LLE with immobilizer. PMRU vs STR at discharge. Will ultimately need revision L TKR but at least [address] Will continue ceftriaxone 2g IV daily day #7 ( in addtion of 2 days of Vanco). She will need 8 weeks of IV abx per Dr. Neff. BC have grown Group B strep. Repeat blood cultures from negative. CRP 10/29/18 319! downb to 99 11/06/18 and ESR 99 11/06/18. Will repeat and trend weekly. (2) Anemia Current Visit: Yes Status: Acute Code(s): D64.9 - ANEMIA, UNSPECIFIED SNOMED Code(s): 916979251 Comment: Likely anemia of chronic disease in addition to small amount of acute blood. H/H stable. Will add iron supplementation. added omeprazole for GI prophylaxsis Will decrease lab draw to Q 3days. (3) Epidural abscess Current Visit: Yes Status: Acute Code(s): G06.2 - EXTRADURAL AND SUBDURAL ABSCESS, UNSPECIFIED SNOMED Code(s): 85155433 Comment: POD#7 from L3 and L4 decompressive laminectomies with evacuation of epidural abscess. Will continue ceftriaxone 2g IV daily day #7 ( in addtion of 2 days of Vanco). She will need 8 weeks of IV abx per Dr. Neff. BC have grown Group B strep. Repeat blood cultures from negative. CRP 10/29/18 319! downb to 99 11/06/18 and ESR 99 11/06/18. Will repeat and trend weekly. (4) HTN (hypertension) Current Visit: Yes Status: Acute Code(s): I10 - ESSENTIAL (PRIMARY) HYPERTENSION SNOMED Code(s): 00287324 Comment: Continue HCTZ 12.5 mg daily and lisinopril 30 mg daily. (5) Lice Current Visit: Yes Status: Acute Code(s): B85.2 - PEDICULOSIS, UNSPECIFIED SNOMED Code(s): 884799549 Comment: S/P permetrin treatment. Repeat treatment on 11/08/18. (6) Type II diabetes mellitus Current Visit: Yes Status: Acute Comment: - Blood sugars are generally under fair control. - Continue metformin, januvia and continue lispro sliding scale. (7) DVT prophylaxis Current Visit: Yes Status: Acute Code(s): IHB9001 - SNOMED Code(s): 405050576 Comment: Start SQ heparin BID Status and Disposition: .
[2018-11-07] MEDS ORDERED: HYDROcodone/ACETAMIN 5-325 MG* 1 TAB PO PRN (19:17)
[2018-11-08] MEDS ORDERED: Permethrin 1% LOTION* 59 ML BTL TOPICAL ONE (01:11)
[2018-11-08] MEDS: HYDROcodone/ACETAMIN 5-325 MG* 1 TAB PO PRN ×6 (01:42→21:50)
[2018-11-08] MEDS: Omeprazole CAP* 20 MG PO SCH (05:43)
--- NOTE | 2018-11-08 07:55 | PN ---
Progress Note - Progress Note Date of Service: 11/07/18 SOAP: Delayed Entry Subjective: []Patient was seen late last night. No events. Doing very well. Back pain continues to improve. Feels better. LLE immobilized, RLE strength improved, can lift RLU out of bed easily. Objective: []VSS Wouns s,c,d AAOx3 EDUARDO, CN II-XII grossly intact. Motor 4-5/5 all extremities, except Rt KE, HF bilateral 4-/5. Lt LE immobilized at knee. Lt foot PF/DF, EHL 4-5/5. Able to elevate RtLE above bed with less difficulty, poor effort/ pain with movement of LEs. Sensory grossly intact to light touch. Assessment: []73 yof POD#6 L3-4 MIS decompression, evacuation of ED abscess and stabilization Plan: [] Monitor VS, [place], PT/OT Rehab eval On Abx per ID. Appreciate IM/ID/Orthopedics care. Tabitha Freeman MD
--- NOTE | 2018-11-08 08:34 | PN ---
Progress Note - Progress Note Date of Service: 11/08/18 SOAP: Subjective: CC: epidural abscess HPI: 73 year old woman with L spine VILMA s/p decompression which she tolerated well. Left knee infected, explant and I&D. Pain better today. One loose stool yesterday, no abd pain or nausea. Appetite is good. Objective: Vital Signs Temp 36.8 C 11/08/18 07:22 Pulse 76 11/08/18 07:22 Resp 18 11/08/18 07:46 BP 149/57 11/08/18 07:22 Pulse Ox 96 11/08/18 07:46 Intake & Output 11/07/18 11/08/18 11/08/18 18:59 06:59 18:59 Intake Total 360 850 Output Total 775 2125 Balance -415 -8061 Intake: Oral 360 850 Output: Vogt 775 2125 Other: # Bowel Movements 1 Estimated Stool Amount Large Small Gen:awake, no distress HEENT: no thrush Heart:RRR no murmur Lungs:CTA BL Abd:+BS NTND soft Skin: no rash MSK: Left knee wrapped, no other joint tenderness Laboratory Results - last 24 hr 11/07/18 11/07/18 11/07/18 08:23 12:02 16:26 POC Glucose (mg/dL) 155 H 158 H 168 H 11/07/18 11/08/18 21:24 07:39 POC Glucose (mg/dL) 198 H 151 H Assessment: 1. Grp B Strep L spine epidural abscess, bacteremia, trans thoracic echo negative 2. 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 obesity 3. T2DM 4. L knee and R hip arthroplasty 5. diarrhea, due to ceftriaxone, not cdif Plan: 1. continue ceftriaxone 2 gm iv daily, day w weekly cbc, cmp, crp
[2018-11-08] MEDS: Heparin VIAL(*) 5000 UNITS/ML VIAL (FIVE THOUSAND) SUBCUT SCH ×2 (09:29→21:21)
[2018-11-08] MEDS: Insulin LISPRO* 1 UNITS UNIT SUBCUT SCH ×4 (09:30→21:22)
[2018-11-08] MEDS: Lisinopril TAB* 10 MG PO SCH (09:30)
[2018-11-08] MEDS: CMCS:Sitagliptin (NF) 50 MG TAB PO SCH (09:30)
[2018-11-08] MEDS: Magnesium Oxide TAB* 400 MG PO SCH (09:30)
[2018-11-08] MEDS: Hydrochlorothiazide TAB* 25 MG PO SCH (09:30)
[2018-11-08] MEDS: Ferrous Sulfate TAB* 325 MG PO SCH ×2 (09:30→21:19)
[2018-11-08] MEDS: metFORMIN* 500 MG TAB PO SCH ×2 (09:31→21:20)
[2018-11-08] MEDS: Docusate CAP* 100 MG PO SCH ×2 (09:31→21:20)
[2018-11-08] MEDS: Magnesium Hydroxide LIQ* 30 ML UDC PO SCH ×2 (09:31→21:20)
[2018-11-08] MEDS: cefTRIAXone(*) 2 GM in NS 0.9% 100 ML* 100 ML IVPB SCH (13:25)
[2018-11-08] MEDS: diPHENhydraMINE PO* 25 MG PO PRN ×2 (14:11→21:19)
--- NOTE | 2018-11-08 14:23 | PN ---
Progress Note - Progress Note Date of Service: 11/08/18 SOAP: Subjective: []Patient seen and examined at bedside. She feels well with knee pain only with movement. Immobilizer has remained in place. Denies CP, SOB, dizziness, nausea. She has incontinence of stool, immobilizer has been soiled, she has a new clean immobilzer at her bedside. Objective: [] Gen: NAD at rest sitting in bed LLE: Immobilizer in place, stool remnants on outside of immobilizer only none near incision. New immobilizer placed. Dressing C/D/I, thigh and calf soft/NT. + f/e at ankle and MTPs. N/V intact. Dressing changed with 2 assistants to support entire leg in straight position, incision CDI without erythema or discharge Assessment: POD #6 Left knee I&D with explant and antibiotic spacer placement Plan: Cont NWB LLE with immobilizer on PMRU vs SNF on d/c, awaiting placement. Possibly to [facility] tomorrow Cont abx per ID anemia: transfuse per medicine as deemed appropriate Vital Signs Temp 98.3 F 11/08/18 11:18 Pulse 78 11/08/18 11:18 Resp 18 11/08/18 14:11 BP 146/57 11/08/18 11:18 Pulse Ox 97 11/08/18 11:18 Intake & Output 11/07/18 11/08/18 11/08/18 18:59 06:59 18:59 Intake Total 360 850 850 Output Total 775 2125 925 Balance -415 -7817 -88 Intake: IV Fluids 20 NS (0.9%) 20 Medicated IV 110 ceftriaxone 110 Oral 360 850 720 Output: Vogt 775 2125 925 Other: # Bowel Movements 1 Estimated Stool Amount Large Small Laboratory Last Values WBC 10.3 10^3/ul (3.5-10.8) 11/06/18 06:17 RBC 2.90 10^6/ul (4.00-5.40) L 11/06/18 06:17 Hgb 7.2 g/dl (12.0-16.0) L 11/06/18 06:17 Hct 22 % (35-47) L 11/06/18 06:17 MCV 77 fL (80-97) L 11/06/18 06:17 MCH 25 pg (27-31) L 11/06/18 06:17 MCHC 32 g/dl (31-36) 11/06/18 06:17 RDW 20 % (10.5-15) H 11/06/18 06:17 Plt Count 324 10^3/ul (150-450) 11/06/18 06:17 MPV 7.0 fL (7.4-10.4) L 11/06/18 06:17 Neut % (Auto) 83.8 % 11/06/18 06:17 Lymph % (Auto) 6.4 % 11/06/18 06:17 [place] % (Auto) 6.8 % 11/06/18 06:17 Eos % (Auto) 2.4 % 11/06/18 06:17 Baso % (Auto) 0.6 % 11/06/18 06:17 Absolute Neuts (auto) 8.6 10^3/ul (1.5-7.7) H 11/06/18 06:17 Absolute Lymphs (auto) 0.7 10^3/ul (1.0-4.8) L 11/06/18 06:17 Absolute Monos (auto) 0.7 10^3/ul (0-0.8) 11/06/18 06:17 Absolute Eos (auto) 0.2 10^3/ul (0-0.6) 11/06/18 06:17 Absolute Basos (auto) 0.1 10^3/ul (0-0.2) 11/06/18 06:17 Absolute Nucleated RBC 0 10^3/ul 11/06/18 06:17 Nucleated RBC % 0.1 11/06/18 06:17 Hypochromasia 1+ 10/29/18 18:52 Anisocytosis 2+ 10/29/18 18:52 Microcytosis 1+ 10/29/18 18:52 Elliptocytes 1+ 10/29/18 18:52 ESR 99 mm/Hr (0-40) H 11/06/18 06:17 INR (Anticoag Therapy) 1.24 (0.77-1.02) H 11/02/18 05:58 APTT 27.8 seconds (26.0-36.3) 10/29/18 20:45 Sodium 132 mmol/L (135-145) L 11/06/18 06:17 Potassium 4.3 mmol/L (3.5-5.0) 11/06/18 06:17 Chloride 100 mmol/L (101-111) L 11/06/18 06:17 Carbon Dioxide 25 mmol/L (22-32) 11/06/18 06:17 Anion Gap 7 mmol/L (2-11) 11/06/18 06:17 BUN 7 mg/dL (6-24) 11/06/18 06:17 Creatinine 0.50 mg/dL (0.51-0.95) L 11/06/18 06:17 Est GFR ( Amer) 147.2 (>60) 11/06/18 06:17 Est GFR (Non-Af Amer) 121.6 (>60) 11/06/18 06:17 BUN/Creatinine Ratio 14.0 (8-20) 11/06/18 06:17 Glucose 129 mg/dL (70-100) H 11/06/18 06:17 POC Glucose (mg/dL) 172 mg/dL (70-100) H 11/08/18 11:32 Hemoglobin A1c 7.5 % (4.0-5.6) H 10/29/18 18:52 Calcium 8.2 mg/dL (8.6-10.3) L 11/06/18 06:17 Phosphorus 4.2 mg/dL (2.5-5.0) 11/06/18 06:17 Magnesium 1.7 mg/dL (1.9-2.7) L 11/06/18 06:17 Iron < 15 ug/dL (50-212) L 10/29/18 18:52 TIBC 312 mcg/dL (250-450) 10/29/18 18:52 % Saturation 5 % (15-55) L 10/29/18 18:52 Unsat Iron Binding < 297 ug/dL 10/29/18 18:52 Transferrin 223 mg/dL (203-362) 10/29/18 18:52 Erythropoietin 46.5 mIU/mL (2.6 - 18.5) H 11/01/18 05:56 Ferritin 164.3 ng/mL (11-307) 10/29/18 18:52 Total Bilirubin 0.40 mg/dL (0.2-1.0) 10/29/18 18:52 AST 14 U/L (13-39) 10/29/18 18:52 ALT 9 U/L (7-52) 10/29/18 18:52 Alkaline Phosphatase 78 U/L (34-104) 10/29/18 18:52 C-Reactive Protein 99.56 mg/L (<8.01) H 11/06/18 06:17 Total Protein 6.3 g/dL (6.4-8.9) L 10/29/18 18:52 Albumin 2.9 g/dL (3.2-5.2) L 10/29/18 18:52 Globulin 3.4 g/dL (2-4) 10/29/18 18:52 Albumin/Globulin Ratio 0.9 (1-3) L 10/29/18 18:52 Urine Color Yellow 10/30/18 00:15 Urine Appearance Cloudy 10/30/18 00:15 Urine pH 5.0 (5-9) 10/30/18 00:15 Ur Specific [place] 1.014 (1.010-1.030) 10/30/18 00:15 Urine Protein Negative (Negative) 10/30/18 00:15 Urine Ketones Negative (Negative) 10/30/18 00:15 Urine Blood 1+ (Negative) A 10/30/18 00:15 Urine Nitrate Negative (Negative) 10/30/18 00:15 Urine Bilirubin Negative (Negative) 10/30/18 00:15 Urine Urobilinogen Negative (Negative) 10/30/18 00:15 Ur Leukocyte Esterase 2+ (Negative) A 10/30/18 00:15 Urine WBC (Auto) 2+(11-20/hpf) (Absent) A 10/30/18 00:15 Urine RBC (Auto) Absent (Absent) 10/30/18 00:15 Ur Squamous Epith Cells Present (Absent) A 10/30/18 00:15 Urine Bacteria Absent (Absent) 10/30/18 00:15 Cellular Casts Present (Absent) A 10/30/18 00:15 Hyaline Casts Present (Absent) A 10/30/18 00:15 Urine Glucose Negative (Negative) 10/30/18 00:15 Urine Ascorbic Acid * (Negative) A 10/30/18 00:15 Fluid Source Synovial fluid 11/01/18 14:00 Fluid Volume 12 mL 11/01/18 14:00 Fluid Color Reta 11/01/18 14:00 Fluid Appearance Cloudy 11/01/18 14:00 Fluid WBC 07478 /mcL (0-904805) 11/01/18 14:00 Fluid RBC 22316 /mcL 11/01/18 14:00 Fluid Tot Cell Count 100 11/01/18 14:00 Fluid Neutrophils 92 % 11/01/18 14:00 Fluid Lymphocytes 2 % 11/01/18 14:00 Fluid Monocytes 6 % 11/01/18 14:00 Fluid Cell Count Rvw By 11/01/18 14:00 Vancomycin Trough 25.3 mcg/mL 10/31/18 10:45 Blood Type A Positive 11/02/18 05:58 Antibody Screen Negative 11/02/18 05:58 Crossmatch See Detail 11/02/18 05:58
--- NOTE | 2018-11-08 18:34 | PN ---
Subjective Date of Service: 11/08/18 Interval History: HOSPITALIST PROGRESS NOTE Patient seen and examined at bedside. Care reviewed and d/w Natan Polanco RN. She c/o itching, but has no new rash. Other than that, offers no other new complaints. Family History: Unchanged from Admission Social History: Unchanged from Admission Past Medical History: Unchanged from Admission Objective Active Medications: Acetaminophen (Tylenol Tab*) 650 mg PO Q4H PRN PRN Reason: FEVER Last Admin: 11/01/18 06:30 Dose: 650 mg Hydrocodone Bitart/Acetaminophen ([place] 5-325 Tab*) 2 tab PO Q4H PRN PRN Reason: PAIN Last Admin: 11/08/18 18:02 Dose: 2 tab Calcium Carbonate (Tums*) 500 mg PO TID PRN PRN Reason: INDIGESTION Last Admin: 11/07/18 17:01 Dose: 500 mg Dextrose (D50w Syringe 50 Ml*) 12.5 gm IV PUSH .FOR FS < 60 - SS PRN PRN Reason: FS < 60 Diphenhydramine HCl (Benadryl Po*) 25 mg PO Q6H PRN PRN Reason: ITCHING Last Admin: 11/08/18 14:11 Dose: 25 mg Docusate Sodium (Colace Cap*) 100 mg PO BID [facility] Last Admin: 11/08/18 09:31 Dose: Not Given Ferrous Sulfate (Ferrous Sulfate Tab*) 325 mg PO BID [facility] Last Admin: 11/08/18 09:30 Dose: 325 mg Heparin Sodium (Porcine) (Heparin Vial(*)) 5,000 units SUBCUT Q12HR [facility] Last Admin: 11/08/18 09:29 Dose: 5,000 units Heparin Sodium (Porcine) (Heparin Flush Picc/Ml/Cvc(*)) 1 - 3 ml FLUSH 0600, 1800 [facility]; Protocol Last Admin: 11/08/18 17:52 Dose: 1 ml Hydrochlorothiazide (Hydrodiuril Tab*) 12.5 mg PO QAM [facility] Last Admin: 11/08/18 09:30 Dose: 12.5 mg Ceftriaxone Sodium 2 gm/ (Sodium Chloride) 100 mls @ 200 mls/hr IVPB Q24H [facility] Last Admin: 11/08/18 13:25 Dose: 200 mls/hr Insulin Human Lispro (Humalog*) 0 units SUBCUT ACHS [facility]; Protocol Last Admin: 11/08/18 17:47 Dose: 2 units Lactulose (Lactulose*) 30 ml PO DAILY PRN PRN Reason: CONSTIPATION Last Admin: 11/03/18 09:59 Dose: 30 ml Lisinopril (Prinivil Tab*) 30 mg PO DAILY [facility] Last Admin: 11/08/18 09:30 Dose: 30 mg Magnesium Hydroxide (Milk Of Magnesia Liq*) 30 ml PO BID [facility] Last Admin: 11/08/18 09:31 Dose: Not Given Magnesium Oxide (Magox 400 Tab*) 800 mg PO DAILY [facility] Last Admin: 11/08/18 09:30 Dose: 800 mg Metformin HCl (Glucophage*) 500 mg PO BID [facility] Last Admin: 11/08/18 09:31 Dose: 500 mg Omeprazole (Prilosec Cap*) 20 mg PO DAILY@0600 [facility] Last Admin: 11/08/18 05:43 Dose: 20 mg Ondansetron HCl (Zofran Inj*) 4 mg IV Q6H PRN PRN Reason: NAUSEA/VOMITING Last Admin: 11/06/18 20:13 Dose: 4 mg Polyethylene Glycol/Electrolytes (Miralax*) 17 gm PO DAILY PRN PRN Reason: CONSTIPATION Last Admin: 11/03/18 09:59 Dose: 17 gm Senna (Senokot Tab*) 1 tab PO BEDTIME PRN PRN Reason: CONSTIPATION Sitagliptin Phosphate (Januvia (Nf)) 50 mg PO QAM [facility]; Protocol Last Admin: 11/08/18 09:30 Dose: 50 mg Vital Signs - 8 hr 11/08/18 11/08/18 11/08/18 11:18 13:22 14:06 Temperature 98.3 F Pulse Rate 78 Respiratory 16 18 18 Rate Blood Pressure 146/57 (mmHg) O2 Sat by Pulse 97 Oximetry 11/08/18 11/08/18 11/08/18 14:11 16:00 16:47 Temperature Pulse Rate Respiratory 18 16 Rate Blood Pressure (mmHg) O2 Sat by Pulse 96 Oximetry 11/08/18 11/08/18 17:00 18:02 Temperature Pulse Rate 88 Respiratory 18 18 Rate Blood Pressure 158/71 (mmHg) O2 Sat by Pulse 96 Oximetry Oxygen Devices in Use Now: None Appearance: Elderly lady lying in bed in [facility]. Eyes: No Scleral Icterus Ears/Nose/Mouth/Throat: Mucous Membranes Moist Neck: Trachea Midline Respiratory: Symmetrical Chest Expansion and Respiratory Effort, Clear to Auscultation Cardiovascular: RRR - Normal S1 and S2 Neurological: Alert and Oriented x 3 Result Diagrams: 11/06/18 06:17 11/06/18 06:17 Assess/Plan/Problems-Billing Assessment: Ms Leon is a 73 yr old female s/p right total hip replacement in Jul 2018, DM2, breast ca, htn, total left knee replacement in 2008 who presented to the ER with low back discomfort since 10/21 and was found to have L3 to L5 epidural abscess, left prosthetic knee infection with Group B strep septicemia. - Patient Problems (1) Epidural abscess Comment: - s/p L3 and L4 decompressive laminectomies with evacuation of epidural abscess 10/31 secondary to groub B strep septicemia. - Echo was negative. - Continue Ceftriaxone #. (2) Infection of prosthetic left knee joint Comment: - S/p explant of infected hardware and antibiotic cement spacer placement on 11/02/18. - Continue NWB LLE with immobilizer. (3) Anemia Comment: - Likely anemia of chronic disease in addition to small amount of acute blood loss. (4) HTN (hypertension) Comment: - Controlled - continue HCTZ and lisinopril. (5) Type II diabetes mellitus Comment: - A1c was 7.5. - Continue metformin, januvia and lispro sliding scale. (6) Lice Comment: - S/P permetrin treatment x 2. (7) DVT prophylaxis Comment: - SQ heparin. (8) Full code status Status and Disposition: Inpatient. Possible d/c to [facility] in AM if medically stable.
--- NOTE | 2018-11-08 21:00 | PN ---
Progress Note - Progress Note Date of Service: 11/08/18 SOAP: Subjective: []No events ON. Doing very well. Back pain significantly improved. Feels better. LLE immobilized, RLE strength improved, can lift RLE out of bed easily. Objective: []VSS Wounds s,c,d AAOx3 EDUARDO, CN II-XII grossly intact. Motor 4-5/5 all extremities, except Rt KE, HF bilateral 4-5/5. Lt LE immobilized at knee. Lt foot PF/DF, EHL 5/5. Able to elevate RtLE above bed easily. Sensory grossly intact to light touch. Assessment: []73 yof POD#7 L3-4 MIS decompression, evacuation of ED abscess and stabilization Plan: []Monitor VS, [place], PT/OT Rehab transfer tomorrow. On Abx per ID. PICC line in place. Follow up in office in 2-3 weeks. Keep incisions dry. May shower and dry incisions with towel. No baths. No lifting, No bending, No driving. Appreciate IM/ID/Orthopedics care. Tabitha Freeman MD
[2018-11-09] MEDS: diPHENhydraMINE PO* 25 MG PO PRN ×4 (03:03→22:46)
[2018-11-09] MEDS: HYDROcodone/ACETAMIN 5-325 MG* 1 TAB PO PRN ×5 (03:04→20:20)
[2018-11-09] MEDS: Omeprazole CAP* 20 MG PO SCH (06:04)
[2018-11-09] MEDS: Heparin VIAL(*) 5000 UNITS/ML VIAL (FIVE THOUSAND) SUBCUT SCH ×3 (06:05→21:20)
[2018-11-09] MEDS: Calcium Carbonate CHEW TAB* 500 MG (TUMS) PO PRN ×2 (06:19→16:03)
[2018-11-09 06:41] LABS: ABS Basophils 0.1 10^3/ul (0-0.2); ABS Eosinophils 0.3 10^3/ul (0-0.6); ABS Lymphocytes 0.8 10^3/ul (1.0-4.8); ABS Monocytes 0.8 10^3/ul (0-0.8); ABS Neutrophils 7.4 10^3/ul (1.5-7.7); ABS Nucleated RBC 0 10^3/ul; Eosinophil % 3.4 %; Hematocrit 22 % (35-47); Hemoglobin 7.3 g/dl (12.0-16.0); Lymphocyte % 8.2 %; Mean Corpuscular HGB Conc 33 g/dl (31-36); Mean Corpuscular Hemoglobin 25 pg (27-31); Mean Corpuscular Volume 77 fL (80-97); Mean Platelet Volume 6.9 fL (7.4-10.4); Nucleated Red Blood Cells % 0; Platelet Count 363 10^3/ul (150-450); Red Blood Count 2.89 10^6/ul (4.00-5.40); Red Cell Distribution Width 21 % (10.5-15); White Blood Count 9.4 10^3/ul (3.5-10.8)
--- NOTE | 2018-11-09 08:27 | PN ---
Progress Note - Progress Note Date of Service: 11/09/18 SOAP: Subjective: POD #5 Left knee I&D with explant and antibiotic spacer placement. Doing ok, pain controlled. Denies CP/SOB, calf pain, paresthesias or numbness. Objective: Vitals: Temp Pulse Resp BP Pulse Ox 98.3 F 72 18 185/67 99 //18 07:21 18 07:21 11/09/18 07:54 11/09/18 07:21 11/09/18 07:54 Gen: A&Ox3, NAD at rest laying in bed LLE: Dressing C/D/I, +f/e at ankle and MTPs, N/V intact Assessment: POD #5 Left knee I&D with explant and antibiotic spacer placement Plan: D/C to [facility] today Cont NWB LLE with immobilizer on at all times, no ROM at knee F/u with Dr. Castanon 10-14 days
[2018-11-09] MEDS: metFORMIN* 500 MG TAB PO SCH ×2 (09:16→21:19)
[2018-11-09] MEDS: Lisinopril TAB* 10 MG PO SCH (09:16)
[2018-11-09] MEDS: Hydrochlorothiazide TAB* 25 MG PO SCH (09:16)
[2018-11-09] MEDS: Magnesium Oxide TAB* 400 MG PO SCH (09:16)
[2018-11-09] MEDS: Ferrous Sulfate TAB* 325 MG PO SCH ×2 (09:16→21:19)
[2018-11-09] MEDS: CMCS:Sitagliptin (NF) 50 MG TAB PO SCH (09:24)
[2018-11-09] MEDS: Insulin LISPRO* 1 UNITS UNIT SUBCUT SCH ×4 (09:25→21:21)
[2018-11-09] MEDS: Docusate CAP* 100 MG PO SCH ×2 (09:25→21:20)
[2018-11-09] MEDS: Magnesium Hydroxide LIQ* 30 ML UDC PO SCH ×2 (09:25→21:20)
[2018-11-09] MEDS: cefTRIAXone(*) 2 GM in NS 0.9% 100 ML* 100 ML IVPB SCH (11:43)
[2018-11-09] MEDS ORDERED: Morphine VIAL* 4 MG/ML VIAL (1 ml vial) IV PRN (11:55)
[2018-11-09] MEDS ORDERED: amLODIPine TAB* 5 MG PO SCH (12:00)
[2018-11-09] MEDS: hydrALAZINE IV* 20 MG/ML VIAL IV SLOW PU PRN (12:20)
[2018-11-09] MEDS: Morphine TAB Extended Release (*) 15 MG TAB.ER PO SCH (14:17)
--- NOTE | 2018-11-09 17:32 | PN ---
Subjective Date of Service: 11/09/18 Interval History: HOSPITALIST PROGRESS NOTE Patient seen and examined at bedside. Care reviewed and d/w Natan Polanco RN. She felt poorly today. Describes severe knee and back pain during bed bath, followed by malaise and chills. BP was also elevated during the day. Family History: Unchanged from Admission Social History: Unchanged from Admission Past Medical History: Unchanged from Admission Objective Active Medications: Acetaminophen (Tylenol Tab*) 650 mg PO Q4H PRN PRN Reason: FEVER Last Admin: 11/01/18 06:30 Dose: 650 mg Hydrocodone Bitart/Acetaminophen ([place] 5-325 Tab*) 2 tab PO Q4H PRN PRN Reason: PAIN Last Admin: 11/09/18 16:03 Dose: 2 tab Amlodipine Besylate (Norvasc Tab*) 5 mg PO DAILY [facility] Last Admin: 11/09/18 12:19 Dose: 5 mg Calcium Carbonate (Tums*) 500 mg PO TID PRN PRN Reason: INDIGESTION Last Admin: 11/09/18 16:03 Dose: 500 mg Dextrose (D50w Syringe 50 Ml*) 12.5 gm IV PUSH .FOR FS < 60 - SS PRN PRN Reason: FS < 60 Diphenhydramine HCl (Benadryl Po*) 25 mg PO Q6H PRN PRN Reason: ITCHING Last Admin: 11/09/18 16:03 Dose: 25 mg Docusate Sodium (Colace Cap*) 100 mg PO BID [facility] Last Admin: 11/09/18 09:25 Dose: Not Given Ferrous Sulfate (Ferrous Sulfate Tab*) 325 mg PO BID [facility] Last Admin: 11/09/18 09:16 Dose: 325 mg Heparin Sodium (Porcine) (Heparin Flush Picc/Ml/Cvc(*)) 1 - 3 ml FLUSH 0600, 1800 [facility]; Protocol Last Admin: 11/09/18 12:31 Dose: 1 ml Heparin Sodium (Porcine) (Heparin Vial(*)) 5,000 units SUBCUT Q8H [facility] Last Admin: 11/09/18 14:18 Dose: 5,000 units Hydralazine HCl (Apresoline Iv*) 5 mg IV SLOW PU Q6H PRN PRN Reason: SBP>170 Last Admin: 11/09/18 12:20 Dose: 5 mg Hydrochlorothiazide (Hydrodiuril Tab*) 12.5 mg PO QAM [facility] Last Admin: 11/09/18 09:16 Dose: 12.5 mg Ceftriaxone Sodium 2 gm/ (Sodium Chloride) 100 mls @ 200 mls/hr IVPB Q24H [facility] Last Admin: 11/09/18 11:43 Dose: 200 mls/hr Insulin Human Lispro (Humalog*) 0 units SUBCUT [facility]; Protocol Last Admin: 11/09/18 12:20 Dose: 3 units Lactulose (Lactulose*) 30 ml PO DAILY PRN PRN Reason: CONSTIPATION Last Admin: 11/03/18 09:59 Dose: 30 ml Lisinopril (Prinivil Tab*) 30 mg PO DAILY [facility] Last Admin: 11/09/18 09:16 Dose: 30 mg Magnesium Hydroxide (Milk Of Magnesia Liq*) 30 ml PO BID [facility] Last Admin: 11/09/18 09:25 Dose: Not Given Magnesium Oxide (Magox 400 Tab*) 800 mg PO DAILY [facility] Last Admin: 11/09/18 09:16 Dose: 800 mg Metformin HCl (Glucophage*) 500 mg PO BID [facility] Last Admin: 11/09/18 09:16 Dose: 500 mg Morphine Sulfate (Morphine Vial*) 1 mg IV Q1H PRN PRN Reason: SEVERE PAIN Last Admin: 11/09/18 12:19 Dose: 1 mg Morphine Sulfate (Ms Contin(*)) 15 mg PO Q12H [facility] Last Admin: 11/09/18 14:17 Dose: 15 mg Omeprazole (Prilosec Cap*) 20 mg PO DAILY@0600 [facility] Last Admin: 11/09/18 06:04 Dose: 20 mg Ondansetron HCl (Zofran Inj*) 4 mg IV Q6H PRN PRN Reason: NAUSEA/VOMITING Last Admin: 11/06/18 20:13 Dose: 4 mg Polyethylene Glycol/Electrolytes (Miralax*) 17 gm PO DAILY PRN PRN Reason: CONSTIPATION Last Admin: 11/03/18 09:59 Dose: 17 gm Senna (Senokot Tab*) 1 tab PO BEDTIME PRN PRN Reason: CONSTIPATION Sitagliptin Phosphate (Januvia (Nf)) 50 mg PO QAM [facility]; Protocol Last Admin: 11/09/18 09:24 Dose: 50 mg Vital Signs - 8 hr 11/09/18 11/09/18 11/09/18 11:12 11:39 12:09 Temperature 99.2 F Pulse Rate 78 Respiratory 16 18 18 Rate Blood Pressure 189/64 (mmHg) O2 Sat by Pulse 100 Oximetry 11/09/18 11/09/18 11/09/18 12:19 13:32 14:17 Temperature Pulse Rate 89 Respiratory 18 18 Rate Blood Pressure 158/53 (mmHg) O2 Sat by Pulse Oximetry 11/09/18 11/09/18 11/09/18 14:19 14:20 16:00 Temperature Pulse Rate Respiratory 18 18 Rate Blood Pressure (mmHg) O2 Sat by Pulse 100 Oximetry 11/09/18 11/09/18 11/09/18 16:03 16:07 16:34 Temperature 98.0 F Pulse Rate 95 Respiratory 18 18 18 Rate Blood Pressure 143/58 (mmHg) O2 Sat by Pulse 100 Oximetry Oxygen Devices in Use Now: None Appearance: Elderly lady lying in bed in NAD. Eyes: No Scleral Icterus Ears/Nose/Mouth/Throat: Mucous Membranes Moist Neck: Trachea Midline Respiratory: Symmetrical Chest Expansion and Respiratory Effort, Clear to Auscultation Cardiovascular: RRR - Normal S1 and S2 Abdominal: NL Sounds; No Tenderness; No Distention Neurological: Alert and Oriented x 3 Result Diagrams: 11/09/18 06:10 11/09/18 06:10 Assess/Plan/Problems-Billing Assessment: Ms Leon is a 73 yr old female s/p right total hip replacement in Jul 2018, DM2, breast ca, htn, total left knee replacement in 2008 who presented to the ER with low back discomfort since 10/21 and was found to have L3 to L5 epidural abscess, left prosthetic knee infection with Group B strep septicemia. - Patient Problems (1) Epidural abscess Comment: - s/p L3 and L4 decompressive laminectomies with evacuation of epidural abscess 10/31 secondary to groub B strep septicemia. - Echo was negative. - Continue Ceftriaxone #. (2) Infection of prosthetic left knee joint Comment: - S/p explant of infected hardware and antibiotic cement spacer placement on 11/02/18. - Continue NWB LLE with immobilizer. - Will add MS Contin for better pain control. (3) Anemia Comment: - Likely anemia of chronic disease in addition to small amount of acute blood loss. (4) HTN (hypertension) Comment: - Uncontrolled today, likely secondary to uncontrolled pain - continue HCTZ and lisinopril, add amlodipine and optimized pain management. (5) Type II diabetes mellitus Comment: - A1c was 7.5. - Continue metformin, januvia and lispro sliding scale. (6) Lice Comment: - S/P permetrin treatment x 2. (7) DVT prophylaxis Comment: - SQ heparin. (8) Full code status Status and Disposition: Inpatient. Possible d/c to [facility] in AM if medically stable.
[2018-11-10] MEDS: Morphine TAB Extended Release (*) 15 MG TAB.ER PO SCH ×2 (03:40→13:54)
[2018-11-10] MEDS: Omeprazole CAP* 20 MG PO SCH (05:00)
[2018-11-10] MEDS: Heparin VIAL(*) 5000 UNITS/ML VIAL (FIVE THOUSAND) SUBCUT SCH (05:01)
[2018-11-10] MEDS: hydrALAZINE IV* 20 MG/ML VIAL IV SLOW PU PRN (05:02)
[2018-11-10] MEDS: Calcium Carbonate CHEW TAB* 500 MG (TUMS) PO PRN (05:08)
--- NOTE | 2018-11-10 07:21 | PN ---
Progress Note - Progress Note Date of Service: 11/10/18 SOAP: Subjective: Pt. is alert, reports severe pain with any movement of L knee. Objective: Vital Signs: Temp Pulse Resp BP Pulse Ox 98.5 F 84 16 173/59 99 11/10/18 04:48 11/10/18 04:48 11/10/18 06:21 11/10/18 04:48 11/10/18 04:48 Laboratory Results - last 24 hr 11/08/18 11/09/18 11/09/18 21:07 07:47 11:43 POC Glucose (mg/dL) 154 H 143 H 173 H 11/09/18 11/09/18 16:30 21:07 POC Glucose (mg/dL) 154 H 161 H LLE - dressing and brace intact. distally nvi. Assessment: 73 yo F pod 7 s/p I and D infected LTKA with explant of hardware and antibiotic cement spacer. Plan: nwb lle knee immobilizer to lle at all times PT'S LEFT LEG IS MORBIDLY OBESE AND NOW UNSTABLE - WILL REQUIRE AT LEAST 2 PEOPLE FOR DRESSING CHANGE AND TRANSFERS. PLEASE RELAY TO SNF ON DISCHARGE ortho to follow, cont IV abx
[2018-11-10] MEDS: CMCS:Sitagliptin (NF) 50 MG TAB PO SCH (08:43)
[2018-11-10] MEDS: Hydrochlorothiazide TAB* 25 MG PO SCH (08:44)
[2018-11-10] MEDS: Lisinopril TAB* 10 MG PO SCH (08:45)
[2018-11-10] MEDS: diPHENhydraMINE PO* 25 MG PO PRN (08:46)
[2018-11-10] MEDS: Docusate CAP* 100 MG PO SCH (08:46)
[2018-11-10] MEDS: metFORMIN* 500 MG TAB PO SCH (08:46)
[2018-11-10] MEDS: Ferrous Sulfate TAB* 325 MG PO SCH (08:47)
[2018-11-10] MEDS: Magnesium Oxide TAB* 400 MG PO SCH (08:47)
[2018-11-10] MEDS: Magnesium Hydroxide LIQ* 30 ML UDC PO SCH (08:48)
[2018-11-10] MEDS ORDERED: amLODIPine TAB* 5 MG PO SCH (09:00)
[2018-11-10] MEDS: Insulin LISPRO* 1 UNITS UNIT SUBCUT SCH ×2 (09:55→13:53)
[2018-11-10] MEDS: HYDROcodone/ACETAMIN 5-325 MG* 1 TAB PO PRN (09:56)
[2018-11-10 12:18] VITALS: BP 128/55
[2018-11-10] MEDS: cefTRIAXone(*) 2 GM in NS 0.9% 100 ML* 100 ML IVPB SCH (12:21)
--- NOTE | 2018-11-10 12:52 | DS ---
CC: Dr. Odalys Adames; Dr. Freeman; Dr. Neff; Dr. Castanon; [facility] DISCHARGE SUMMARY: DATE OF ADMISSION: 10/30/18 DATE OF DISCHARGE: 11/10/18 PRIMARY CARE PROVIDER: Dr. Odalys Adames NEUROSURGEON: Dr. Freeman INFECTIOUS DISEASE SPECIALIST: Dr. Neff ORTHOPEDIST: Dr. Castanon. DISCHARGE DIAGNOSES: 1. Group B Streptococcus septicemia with epidural abscess and prosthetic left knee infection. 2. Hypertension. 3. Anemia of chronic disease and acute blood loss. 4. Lice infestation. 5. Leukocytosis. 6. Acute kidney injury secondary to dehydration. SECONDARY DIAGNOSES: 1. Type 2 diabetes. 2. History of breast cancer, status post lumpectomy and radiation. 3. Status post left total knee replacement. 4. Bilateral carpal tunnel release. 5. Status post . 6. Status post right total hip replacement. 7. Obesity with a BMI of 34.4. MEDICATIONS AT THE TIME OF TRANSFER: 1. Acetaminophen 650 mg p.o. q.4 hours p.r.n. pain or fever. 2. Vitamin C 500 mg p.o. daily. 3. Calcium carbonate 500 mg p.o. t.i.d. as needed for indigestion. 4. Ceftriaxone 2 g IV q.24 hours for 45 days to complete 56 days of treatment. 5. Cholecalciferol 5000 units p.o. in the morning. 6. Benadryl 25 mg p.o. q.6 hours p.r.n. itching. 7. Colace 100 mg p.o. b.i.d. 8. Ferrous sulfate 325 mg p.o. b.i.d. 9. Heparin flush 1 to 3 mL flush 6 a.m., 6 a.m. 10. Hydrochlorothiazide 12.5 mg p.o. q.a.m. 11. [place] 5/325 mg 2 tablets p.o. q.4 hours p.r.n. pain. 12. Lispro sliding scale as follows: Fingersticks 131 to 150 - 3 units. 151 to 200 - 3 units. 201 to 250 - 6 units. 251 to 300 - 9 units. 301 to 350 - 12 units. 351 to 400 - 15 units. Greater th an 400 - call MD. 13. Lactulose 30 mL p.o. daily p.r.n. constipation. 14. Lisinopril 30 mg p.o. daily. 15. Milk of magnesia 30 mL p.o. b.i.d. 16. Magnesium oxide 800 mg p.o. daily. 17. Metformin 500 mg p.o. b.i.d. 18. Omeprazole 20 mg p.o. daily at 6 a.m. 19. Sitagliptin 50 mg p.o. q.a.m. 20. Amlodipine 10 mg p.o. daily. HOSPITAL COURSE: Ms. Leon is a 73-year-old lady with a past medical history as stated above who p resented to the emergency room on 10/30/18 with complaints of back pain that had started around Thank sgiving and associated with difficulty walking. For more details about her presentation, I refer to her history and physician. The patient underwent an MRI of the lumbar spine that showed severe compre ssion of the cauda equina from L3 to L4-L5 secondary to circumferential epidural T1 and T2 hyperinten sity with associated STIR hyperintensity. These findings could represent an epidural abscess. She w as admitted to the hospital and there were laboratory test included leukocytosis of 14,000, CRP of ov er 300 all pointing to infection. The patient was started on IV antibiotics and seen in consultation by Infectious Disease (Dr. Daniel montes). His recommendation was at that point for vancomycin and neurosurgery was also consulted and the patient was taken to the OR on 10/31/[address] Freeman and she underwent minimally invasive L3-L4 arthrodesis with L3 and L4 bilateral pedicle screw placement, compressive laminectomies, and evacuati on of epidural abscess. The patient's blood cultures grew group B Streptococcus and a transthoracic echocardiogram showed eje ction fraction of 55% to 60% with no evidence of vegetations, all valves are functioning normally. T he patient had progressive improvement of her leukocytosis, but she then started to complain of left prosthetic knee pain. Orthopedic service was involved and on 11/02/18, the patient was taken to the OR for an infected left total knee with periprosthetic loosening. She underwent a left open incision and drainage of infected total knee arthroplasty with explant of hardware and antibiotic cement space r placement by Dr. Castanon. After surgeries, the patient continued to improve slowly. She had resolution of her leukocytosis, he r CRP is trending down from 319 on admission to 83 prior to discharge. Also, of note is the fact the patient was found to have lice infestation and this was treated with 2 permethrin treatments and this appears to be resolved at this time. From a neurosurgical point of view, the patient is doing well and the recommendations are to continue rehab and follow up with Dr. Freeman in 2 to 3 weeks. Her incision should be kept dry. She may shower and dry incisions with a towel, but she should not bathe. No lifting, no bending, and no driv ing was recommended by Neurosurgery. Regarding her orthopedic care, the recommendations are her left is to remain fully extended in the im mobilizer at all times. When the leg is moved, the entire leg has to be moved, the entire leg has to be held rather than holding from the ankle alone. The patient should not flex her knee and the left knee is now unstable. She will require at least 2 people for dressing changes and transfer as she is nonweightbearing to that extremity and she will have the knee immobilizer at all times. Daily dry s terile dressing change with gauze and tape and she will need to follow up with Dr. Castanon in 10 to 14 days. The day prior to discharge, the patient was having issues with pain control after getting clean in be d and this probably caused spike on her blood pressure. Amlodipine has been added to her regimen with good response. The patient is medically stable for discharge to [facility] at this time to continue her rehabilitatio n process. She will need weekly CBC, CMP, and CRP while on antibiotics. She did have some antibiotic -related diarrhea, but no C. diff. She also complains of itching on her back, but she does not have a rash and itching appears to be responding to Benadryl. PHYSICAL EXAMINATION: Vital Signs: Temperature 98.5, heart rate is 83, respiratory rate is 18, oxyg en saturation 97% on room air, blood pressure is 132/59. General: The patient is a pleasant, obese lady, lying in bed, in no acute distress. CVS: Normal S1, S2. Regular rate and rhythm. Chest: Br eath sounds bilaterally. No added sounds. Abdomen is obese, soft. Bowel sounds present. Extremitie s: The patient has a knee immobilizer on the left. Neuro: She is alert and oriented x3, able to mo ve all 4 extremities. DIET: Heart-healthy diet. ACTIVITIES: As tolerated. Nonweightbearing to lower extremity as described above. DISPOSITION: To [facility]. STATUS IN THE HOSPITAL: Inpatient. Please keep in mind this is a summarized version of this patient's prolonged and complex hospital sta y. If you need more information, please feel free to call me at [phone] or please obtain the [facility] medical records. TIME SPENT: Approximately 45 minutes was spent to complete this discharge. [id number]/CPS #: [id number]
== END 2018-11-10 14:14 | DRG 710 ==
LOC: ED 14:11 → MED 10-30 00:42 → SSU 10-31 20:37
PROVIDERS: ADMIT Hospitalist; ATTEND Internal Medicine
PROC: 0SG00K1 Fusion of Lumbar Vertebral Joint with Nonautologous Tissue Substitute, Posterior Approach, Posterior Column, Open Approach (ICD-10-PCS; 2018-10-31)
PROC: 8E0WXBZ Computer Assisted Procedure of Trunk Region (ICD-10-PCS; 2018-10-31)
PROC: 0SB20ZZ Excision of Lumbar Vertebral Disc, Open Approach (ICD-10-PCS; 2018-10-31)
PROC: 009U0ZZ Drainage of Spinal Canal, Open Approach (ICD-10-PCS; 2018-10-31)
PROC: 0SPD0JZ Removal of Synthetic Substitute from Left Knee Joint, Open Approach (ICD-10-PCS; 2018-10-31)
PROC: 0SHC08Z Insertion of Spacer into Right Knee Joint, Open Approach (ICD-10-PCS; 2018-10-31)
PROC: 0S9D3ZX Drainage of Left Knee Joint, Percutaneous Approach, Diagnostic (ICD-10-PCS; principal; 2018-11-01)
PROC: 30233N1 Transfusion of Nonautologous Red Blood Cells into Peripheral Vein, Percutaneous Approach (ICD-10-PCS; 2018-11-03)
PROC: 02HV33Z Insertion of Infusion Device into Superior Vena Cava, Percutaneous Approach (ICD-10-PCS; 2018-11-08)
DX: A40.1 Sepsis due to streptococcus, group B (principal); G06.2 Extradural and subdural abscess, unspecified; T84.54XA Infection and inflammatory reaction due to internal left knee prosthesis, initial encounter; E87.1 Hypo-osmolality and hyponatremia; N17.9 Acute kidney failure, unspecified; D62 Acute posthemorrhagic anemia; T84.033A Mechanical loosening of internal left knee prosthetic joint, initial encounter; K44.9 Diaphragmatic hernia without obstruction or gangrene; K80.20 Calculus of gallbladder without cholecystitis without obstruction; M47.816 Spondylosis without myelopathy or radiculopathy, lumbar region; I10 Essential (primary) hypertension; I73.9 Peripheral vascular disease, unspecified; K21.9 Gastro-esophageal reflux disease without esophagitis; M19.042 Primary osteoarthritis, left hand; M19.041 Primary osteoarthritis, right hand; E11.36 Type 2 diabetes mellitus with diabetic cataract; M17.11 Unilateral primary osteoarthritis, right knee; Z96.652 Presence of left artificial knee joint; Z96.641 Presence of right artificial hip joint; Z92.3 Personal history of irradiation; Z85.3 Personal history of malignant neoplasm of breast; Z82.49 Family history of ischemic heart disease and other diseases of the circulatory system; Z83.3 Family history of diabetes mellitus; Z80.51 Family history of malignant neoplasm of kidney; Z91.040 Latex allergy status; Z91.048 Other nonmedicinal substance allergy status; M46.46 Discitis, unspecified, lumbar region; K59.00 Constipation, unspecified; B85.2 Pediculosis, unspecified; B95.1 Streptococcus, group B, as the cause of diseases classified elsewhere; E66.9 Obesity, unspecified; Y79.1 Therapeutic (nonsurgical) and rehabilitative orthopedic devices associated with adverse incidents; Y92.9 Unspecified place or not applicable; R19.7 Diarrhea, unspecified; T36.1X5A Adverse effect of cephalosporins and other beta-lactam antibiotics, initial encounter; L29.9 Pruritus, unspecified; D63.8 Anemia in other chronic diseases classified elsewhere; E86.0 Dehydration; Z68.34 Body mass index [BMI] 34.0-34.9, adult; Z79.01 Long term (current) use of anticoagulants; Z79.4 Long term (current) use of insulin; E11.40 Type 2 diabetes mellitus with diabetic neuropathy, unspecified; E78.5 Hyperlipidemia, unspecified; E55.9 Vitamin D deficiency, unspecified
CPT/HCPCS: 36415; 71045; 72100; 72110; 72131; 72146; 72148; 72170; 76001; 80048; 80053; 80202; 81003; 81015; 82668; 82728; 83036; 83540; 83550; 83630; 83735; 84100; 85014; 85018; 85025; 85027; 85610; 85652; 85730; 86140; 86850; 86900; 86901; 86922; 87040; 87045; 87046; 87070; 87073; 87077; 87086; 87102; 87116; 87150; 87184; 87186; 87205; 87206; 87640; 87641; 87899; 88300; 89051; 93005; 93306; 96372; 99285; A9270-GY; C1713; C1751; C9359; G8978-GP-CM; G8978-GP-CN; G8979-GP-CI; G8979-GP-CJ; G8979-GP-CK; G8980-GP-CM; J0330; J0360; J0690; J0692; J0696; J0780; J1100; J1170; J1642; J1644; J1885; J2001; J2250; J2270; J2360; J2405; J2543; J2704; J2710; J3010; J3370; P9040

== ENCOUNTER 2018-11-27 18:09 | Emergency (ER) | payer BC ==
--- OUTSIDE RECORDS SUMMARY | 2018-11-27 18:37 | XMS REPORT | Continuity of Care Document ---
:1945 External Reference #:[id number] Author Name Mckenna Coronado Care Team Providers Name Role Phone Odalys Adames MD Primary Care Physician Unavailable Payers Type Date Identification Numbers Payment Provider Subscriber Policy Number: [id number] [facility] Ashia Herrera Group Number: [id number] [address] [address] PayID: [id number] BRAULIO Garcia [id number] Effective: 2017 Policy Number: [id number] [employer] Ashia Herrera Onset: 2017 Group Name: [id number] [phone] [address] PayID: [id number] [place] [address] Advance Directives Description No Information Available Problems Date Description Provider Status Onset: 07/07/2018 Localized, primary osteoarthritis Alejandra Castanon M.D. Active Onset: 07/07/2018 Localized, primary osteoarthritis of the Alejandra Castanon M.D. Active pelvic region and thigh Onset: 07/07/2018 Arthroplasty of knee Alejandra Castanon M.D. Active Onset: 09/25/2018 Prosthetic arthroplasty of the hip Alejandra Castanon M.D. 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[employer] ETOH Use Denies alcohol use Tobacco Use Start: Unknown Patient has never smoked Smoking Status Reviewed: 11/17/18 Patient has never smoked Exercise Type/Frequency Exercises [...] Capsules 12.5mg 1 by mouth Unknown e / every day Ibuprofen Active Tablets 200mg 4 tabs by Unknown /0000 mouth as needed Oxycodone HCL Active Unknown /0000 Ceftriaxone Sodium Active Solution 2gm 2 grams Unknown /0000 Rec daily iv at [facility] (started 08/07/18) Amlodipine Active Tablets 10mg 1 by mouth Unknown Besylate every day Omeprazole Active Capsules 20mg 1 by mouth Unknown /0000 DR every day Colace 08/21 Hx Capsules 100mg 90cap 1 tab every Alejandra s 12 hours as Lg, - needed for M.D. 09/24 constipatio n Warfarin Sodium 08/21 Hx Tablets 2mg 90tab 1-3 tabs ( s 2-6 mg) Lg, - daily, M.D. 09/24 determined by inr dose Oxycodone-Acetamin 08/21 Hx Tablets 5-325mg 70tab 1-2 by Alejandra s mouth every Lg, - 4-6 hours M.D. 09/24 as needed for post-op pain. max 10 per day Aspirin 81 Low 00 Hx 1 by mouth Unknown Dose /0000 [...] every 6 - hours as 09/24 Ibuprofen 00 Hx Tablets 200mg as needed Unknown /0000 - 08/06 Immunizations Description No Information Available Vital Signs Date Vital Result Comment 11/17/2018 2:46pm Height 68 inches 5'8" Heart Rate 100 /min Respiratory Rate 20 /min Body Temperature 99.1 F Pain Level 0 10/18/2018 10:05am Height 68 inches 5'8" Heart [...] Date Facility Test Result H/L Range Note CBC Auto Diff 11/13/2018 [facility] White Blood 7.0 10^3/uL N 3.5-10.[address] [place] [address] [phone] Red Blood Count 3.41 10^6/uL Low 4.00-5.40 Hemoglobin 8.4 g/dL Low 12.0-16.0 Hematocrit 27 % Low 35-47 Mean Corpuscular Volume 78 fL Low 80-97 Mean Corpuscular Hemoglobin 25 pg Low 27-31 Mean Corpuscular HGB Conc 32 g/dL N 31-36 Red Cell Distribution Width 21 % High 10.5-15 Platelet Count 295 10^3/uL N 150-450 Mean Platelet Volume 7.3 fL Low 7.4-10.4 Abs Neutrophils 5.3 10^3/uL N 1.5-7.7 Abs Lymphocytes 0.5 10^3/uL Low 1.0-4.8 Abs Monocytes 0.8 10^3/uL N 0-0.8 Abs Eosinophils 0.3 10^3/uL N 0-0.6 Abs Basophils 0 10^3/uL N 0-0.2 Abs Nucleated RBC 0 10^3/uL Granulocyte % 75.8 % Lymphocyte % 7.5 % Monocyte % 11.2 % Eosinophil % 4.8 % Basophil % 0.7 % Nucleated Red Blood Cells % 0.1 Comp Metabolic Panel 11/13/2018 [facility] Sodium 131 mmol/L Low 135-145 [address] [place] [address] [phone] Potassium 4.8 mmol/L N 3.5-5.0 Chloride 94 mmol/L Low 101-111 Co2 Carbon Dioxide 28 mmol/L N 22-32 Anion Gap 9 mmol/L N 2-11 Glucose 147 mg/dL High 70-100 Blood Urea Nitrogen 8 mg/dL N 6-24 Creatinine 0.61 mg/dL N 0.51-0.95 BUN/Creatinine Ratio 13.1 N 8-20 Calcium 8.6 mg/dL N 8.6-10.3 Total Protein 5.9 g/dL Low 6.4-8.9 Albumin 2.8 g/dL Low 3.2-5.2 Globulin 3.1 g/dL N 2-4 Albumin/Globulin Ratio 0.9 Low 1-3 Total Bilirubin 0.30 mg/dL N 0.2-1.0 Alkaline Phosphatase 80 U/L N 34-104 Alt 8 U/L N 7-52 Ast 12 U/L Low 13-39 Egfr Non- 96.7 >60 Egfr 117.0 >60 2 Laboratory test 11/13/2018 [facility] C Reactive 58.17 mg/L High <8.[address] [place] [address] [phone] Urinalysis 08/07/2018 [facility] Urine Color Straw Profile [address] [place] [address] [phone] Urine Appearance Clear Urine Specific Herscher 1.005 Low 1.010-1.030 Urine pH 7.0 N [...] Epithelial Cell Present Abnormal Absent Inr/Protime 08/07/2018 [facility] Inr 0.87 N 0.77-1.[address] [place] [address] [phone] Laboratory test 08/07/2018 [facility] Partial 30.1 seconds N 26.0-36.[address] [place] [address] PTT [phone] Type & Screen 08/07/2018 [facility] Patient A Positive [address] [place] [address] [phone] Antibody Screen NEGATIVE Urine Culture And 08/07/2018 [facility] Urine Culture SEE RESULT [address] [place] [address] [phone] Laboratory test 02/13/2018 [facility] Point of Care 134 mg/dL High 70-1 [address] Glucose 00 [place] [address] [phone] Laboratory test 01/23/2018 [facility] Point of Care 133 mg/dL High 70-1 [address] Glucose 00 [place] [address] [phone] Laboratory test 10/24/2017 [facility] Surgical SEE RESULT [address] [place] [address] [phone] Wound 04/11/2017 [facility] Wound/Misc SEE RESULT 8 Culture/Sensi [address] [place] [address] Stain [phone] Wound 03/03/2017 [facility] Wound/Misc SEE RESULT 9, 10 Culture/Sensi [address] [address] Stain [phone] 1 [facility] - Floor: 1, #: [id number] 2 Because ethnic data is not always readily available, this report includes an eGFR for both -Americans and non- Americans. The National Kidney Disease Education Program (NKDEP) does not endorse the use of the MDRD equation for patients that are not between the ages of 18 and 70, are , have extremes of body size, muscle mass, or nutritional status, or are non- or non-. According to the National Kidney Foundation, irrespective of diagnosis, the stage of the disease is based on the level of kidney function: Stage Description GFR(mL/min/1.73 m(2)) 1 Kidney damage with normal or decreased GFR 90 2 Kidney damage with mild decrease in GFR 60-89 3 Moderate decrease in GFR 30-59 4 Severe decrease in GFR 15-29 5 Kidney failure <15 (or dialysis) 3 [facility] - Floor: 1, #: [id number] 4 SEE RESULT BELOW Name: ASHIA HERRERA : [address]: Alejandra Castanon MD Acct: [id number] Unit: [id number] AGE: 73 Location: [facility] Re08/07/18 SEX: F Status: REG REF SPEC: [id number] [place]: 08/07/18-1150 [facility] DR: Alejandra Castanon MD REQ: [id number] RECD: 08/07/18 STATUS: COMP _ SOURCE: URINE SPDESC: ORDERED: Urine Culture QUERIES: Urine Source: Clean Catch Procedure Result Reported Site Urine Culture Final 08/08/18- 1246 ML No growth of clinically significant organisms * ML - Main Lab . END OF REPORT DEPARTMENT OF PATHOLOGY, [address] [place] [address] Richard Browning M.D. Director [facility] # [id number] 5 Marketing Engineer: [id number] Marketing Engineer: [id number] 7 SEE RESULT BELOW Name: ASHIA HERRERA : [address]: Amina Solomon MD Acct: [id number] Unit: [id number] AGE: 72 Location: WOUND Re10/24/17 SEX: F Status: REG REF SPEC: [id number] [place]: 10/24/17 [facility] DR: Amina Solomon MD REQ: [id number] RECD: 10/24/17 STATUS: JUAN ESTRADA DR: Ashlee [...] performed at Main Lab DEPARTMENT OF PATHOLOGY, [address] [place] [address] Richard Browning M.D. Director [facility] # [id number] 8 SEE RESULT BELOW Name: ASHIA HERRERA : [address]: Ashlee Arvizu MD Acct: [id number] Unit: [id number] AGE: 71 Location: WOUND Re04/11/17 SEX: F Status: REG REF SPEC: [id number] [place]KE: 04/11/17 [facility] DR: Ashlee Arvizu MD REQ: [id number] RECD: 04/11/17 STATUS: TYLOR ESTRADA DR: Blanca [...] for recollect. * ML - MAIN LAB ([facility]) . END OF REPORT * ML=Testing performed at Main Lab DEPARTMENT OF PATHOLOGY, [address] [place] [address] Richard Browning M.D. Director [facility] # [id number] 9 LEFT MEDIAL FOOT ULCER 10 SEE RESULT BELOW Name: ASHIA HERRERA : [address]: Ashlee Arvizu MD Acct: [id number] Unit: [id number] AGE: 71 Location: WOUND Re03/03/17 SEX: F Status: REG REF SPEC: [id number] [place]: 03/03/17 [facility] DR: Blanca Castro NP REQ: [id number] RECD: 03/03/17 STATUS: COMP OTHR DR: Ashlee Adames MD _ SOURCE: FOOT,LEFT SPDESC: ORDERED: Culture Stain COMMENTS: LEFT MEDIAL FOOT ULCER QUERIES: Specimen Description RED SWAB Procedure Result Reported Site Wound/Misc Gram Stain Final 03/03/17- 1059 ML 1+ Epithelial Cells 3+ Neutrophils 1+ Gram Positive Bacilli Wound/Misc Culture Final 03/05/17- 08 ML Organism 1 NORMAL NNEKA Quantity 1+ * ML - MAIN LAB ([facility]) . END OF REPORT * ML=Testing performed at Main Lab DEPARTMENT OF PATHOLOGY, [address] [place] [address] Richard Browning M.D. Director [facility] # [id number] Procedures Date Code Description Status 11/02/2018 35705 Removal Of Prosthesis, Incl TKR Prosthesis,W Or W/O Completed Insert Spacer 11/02/2018 54136 Removal Of Prosthesis, Incl TKR Prosthesis,W Or W/O Completed Insert Spacer 11/02/2018 34772 Removal Of Prosthesis, Incl TKR Prosthesis,W Or W/O Completed Insert Spacer 11/02/2018 11478 Removal Of Prosthesis, Incl TKR Prosthesis,W Or W/O Completed Insert Spacer 11/02/2018 77930 Removal Of Prosthesis, Incl TKR Prosthesis,W Or W/O Completed Insert Spacer 11/01/2018 30132 ECHO Transthorasic Realtime 2D W Doppler & Color Flow Completed Hosp 08/17/2018 99823 THR Total Hip Replacement Completed 08/17/2018 94656 THR Total Hip Replacement Completed 02/13/2018 79090 Carpal Tunnel Release Completed 02/13/2018 71931 Carpal Tunnel Release Completed 02/13/2018 88592 Carpal Tunnel Release Completed 01/23/2018 54291 Carpal Tunnel Release Completed 01/23/2018 71752 Carpal Tunnel Release Completed 01/23/2018 82004 Carpal Tunnel Release Completed 10/26/201790702 Aspiration &/Or Inj Of Ganglion Cyst(S) Any Location Completed 10/26/2017 Aspiration &/Or Inj Of Ganglion Cyst(S) Any Location Completed 10/26/2017 Aspiration &/Or Inj Of Ganglion Cyst(S) Any Location Completed 10/24/2017 43551 Removal Devitalization Tissue Wound Less Than Equal 20 Completed Square CM 03/28/2017 12806 Removal Devitalization Tissue Wound Less Than Equal [address] CM 03/07/2017 09872 Removal Devitalized Tissue Wound Greater Than 20 Square Completed CM 03/07/2017 89302 Removal Devitalization Tissue Wound Less Than Equal [address] CM 03/03/2017 21392 Removal Devitalization Tissue Wound Less Than Equal [address] CM 10/06/2015 [id number] Mammogram Completed 09/25/2015 22109824 Mammogram Completed 11/17/2012 11950217 Mammogram Completed 11/14/2012 29217527 Mammogram Completed 03/08/2012 13736546 Mammogram Completed Encounters Type Date Location Provider Dx Diagnosis Office Visit 11/09/2018 [facility] Goyal, 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 subdural abscess, Hospitalists unspecified T84.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, subs D64.9 Anemia, unspecified I10 Essential (primary) hypertension E11.9 Type 2 diabetes mellitus without complications B85.2 Pediculosis, unspecified Office 11/07/2018 [facility] T84.54xD Infect/inflm Visit 1:07p Assdavidson davies M.D. 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, unspecified N17.9 Acute kidney failure, unspecified E11.9 Type 2 diabetes mellitus without complications I10 Essential (primary) hypertension K59.00 Constipation, unspecified B85.2 Pediculosis, unspecified Office Visit 11/01/2018 1:05p [facility] G06.2 Extradural and Assoc,pc Shortle, COOK ROOM SUPERVISOR subdural abscess, Hospitalists unspecified M43.26 Fusion of spine, lumbar region N17.9 Acute kidney failure, unspecified I10 Essential (primary) hypertension E11.9 Type 2 diabetes mellitus without complications B85.2 Pediculosis, unspecified K59.00 Constipation, unspecified Office Visit 11/01/2018 12:31p [facility] Devin Astudillo G06.1 Intraspinal Infectious Keith Uribe abscess and Diseases granuloma M25.562 Pain in left knee Z96.652 Presence of left artificial knee joint R78.81 Bacteremia B95.1 Streptococcus, group B, causing diseases classd elswhr Office Visit 11/01/2018 [facility] N[facility] Garcia, T84.54xA Infect/inflm 3:20p Services Of reaction due to C.M.A. internal left knee prosth, init Office Visit 10/31/2018 [facility] G06.2 Extradural and 1:04p Assoc,pc Shortle, COOK ROOM SUPERVISOR subdural abscess, Hospitalists unspecified N17.9 Acute kidney failure, unspecified I10 Essential (primary) hypertension E87.1 Hypo-osmolality and hyponatremia E11.9 Type 2 diabetes mellitus without complications M53.2x6 Spinal instabilities, lumbar region K59.00 Constipation, unspecified Office Visit 10/30/2018 1:04p [facility] G06.2 Extradural and Assoc,davidson Gasca D.O. subdural abscess, Hospitalists unspecified E87.1 Hypo-osmolality and hyponatremia N17.9 Acute kidney failure, unspecified E11.9 Type 2 diabetes mellitus without complications D64.9 Anemia, unspecified Office Visit 10/30/2018 12:13p [facility] Devin Astudillo G06.1 Intraspinal Infectious Keith Uribe abscess and Diseases granuloma G95.29 Other cord compression R78.81 Bacteremia Z96.641 Presence of right artificial hip joint E11.9 Type 2 diabetes mellitus without complications Office Visit 08/21/2018 11:30a [facility] Yolanda Daly, Z47.1 Aftercare Assoc,pc N.P. following joint Hospitalists replacement surgery Z96.641 Presence of right artificial hip joint E87.1 Hypo-osmolality and hyponatremia N17.9 Acute kidney failure, unspecified I10 Essential (primary) hypertension E11.9 Type 2 diabetes mellitus without complications Office Visit 08/20/2018 11:30a [facility] Yolanda Daly, Z47.1 Aftercare Assoc,pc N.P. following joint Hospitalists replacement surgery Z96.641 Presence of right artificial hip joint E87.1 Hypo-osmolality and hyponatremia N17.9 Acute kidney failure, unspecified I10 Essential (primary) hypertension E11.9 Type 2 diabetes mellitus without complications Office Visit 08/19/2018 [facility] Crystal Z47.1 Aftercare 11:29a Assoc,davidson Mathis NP following joint Hospitalists replacement surgery Z96.641 Presence of right artificial hip joint E87.1 Hypo-osmolality and hyponatremia I10 Essential (primary) hypertension E11.9 Type 2 diabetes mellitus without complications N17.9 Acute kidney failure, unspecified Office Visit 08/18/2018 [facility] Crystal Z96.641 Presence of 11:23a Assoc,davidson Mathis NP right artificial Hospitalists hip joint Z47.1 Aftercare following joint replacement surgery I10 Essential (primary) hypertension E11.9 Type 2 diabetes mellitus without complications E87.1 Hypo-osmolality and hyponatremia N17.9 Acute kidney failure, unspecified Office Visit 08/17/2018 11:07a [facility] Frantz Rebollar, E11.9 Type 2 diabetes Assoc,davidson ABDUL mellitus without Hospitalists complications Z85.3 Personal history of malignant neoplasm of breast I10 Essential (primary) hypertension Z96.641 Presence of right artificial hip joint Office Visit 08/14/2018 9:15a [facility] Alejandrakarlos Castanon, M25.561 Pain in right Of [facility].A. 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 L97.822 Non-prs chronic ulcer oth prt l low leg w fat layer exposed I87.313 Chronic venous hypertension w ulcer of bilateral low extrm I10 Essential (primary) hypertension Office Visit 03/07/2017 12:10p Wound Care Blanca Castro, E11.621 Type 2 diabetes Center AT [facility] HEIDI RN, TRUCK RENTAL CLERK-BC mellitus with foot ulcer L97.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 L97.822 Non-prs chronic ulcer oth prt l low leg w fat layer exposed R60.0 Localized edema M79.662 Pain in left lower leg I87.2 Venous insufficiency (chronic) (peripheral) Office Visit 03/03/2017 10:55a Wound Care Blanca Castro, E11.621 Type 2 diabetes Center AT [facility] HEIDI RN, TRUCK RENTAL CLERK-BC mellitus with foot ulcer L97.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 left lower limb Hospitalists E11.621 Type 2 diabetes mellitus with foot ulcer R65.20 Severe sepsis without septic shock Office Visit 06/29/2016 9:16a [facility] Devin Astudillo L03.116 Cellulitis of For Halle Uribe M.D. 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 at [facility]/05/2018 10:10 am - Devin Uribe M.D. at [facility] For Infectious Ymmwsqyq76/24/2018 10:00 am - Denis Bermudze PA-C at [facility].A12/20/2018 11:00 am - Estephania Freeman MD at [facility]11/17/2018 - Nghia Garcia MDT84.54xA Infection and inflammatory reaction due to internal left kneFollow up:Follow up: 2 weeks with RghqlA58.551 Pain in right hip
--- NOTE | 2018-11-27 18:47 | ED ---
Skin Complaint - HPI Summary HPI Summary: Pt. is a 73 y.o female who presents to the ER for surgical wound evaluation. Pt. is currently residing at [facility]. Pt. had an epidural abscess about one month ago and had surgery by Dr. Hughes. Pt. also recently with infected left prosthetic knee which was removed. Pt. also notes right hip replacement over the last few months. Pt. has had numerous post-operative infections. Pt. currently has picc line and is receiving rocephin. Nurse at [facility] today was concerned that back incision was infected. Pt. denies increased pain, fever, chills, N/V. Hx of DM. Symptoms are mild-moderate in severity. No current modifying factors. - History of Current Complaint Chief Complaint: EDLacSutureRecheck Time Seen by Provider: 11/27/18 18:23 Stated Complaint: SORES Hx Obtained From: Patient Pain Intensity: 3 - Additional Pertinent History Primary Care Physician: RODOLFO - Allergy/Home Medications Allergies/Adverse Reactions: Allergies Allergy/AdvReac Type Severity Reaction Status Date / Time latex Allergy Severe Rash Verified 10/29/18 22:19 adhesive Allergy Intermediate Rash Verified 10/29/18 22:19 Home Medications: Home Medications Acetaminophen TAB* [Tylenol TAB*] 650 mg PO Q6H PRN 11/27/18 [History Confirmed 11/27/18] Docusate CAP* [Colace Cap*] 100 mg PO BEDTIME 11/27/18 [History Confirmed ] Ferrous Sulfate TAB* 325 mg PO DAILY 11/27/18 [History Confirmed 11/27/18] Hydrocodone/Acetamin 10/325(NF 1 tab PO TID 11/27/18 [History Confirmed 11/27/18 ] Nystatin 1 each TOPICAL BID 11/27/18 [History Confirmed 11/27/18] Omeprazole CAP* [Prilosec CAP* 20 MG] 20 mg PO DAILY@0700 11/27/18 [History Confirmed 11/27/18] PMH/Surg Hx/FS Hx/Imm Hx Previously Healthy: Yes Endocrine/Hematology History: Reports: Hx Anticoagulant Therapy - Aspirin., Hx Diabetes Denies: Hx Thyroid Disease Cardiovascular History: Reports: Hx Hypertension, Hx Peripheral Vascular Disease Denies: Hx Congestive Heart Failure, Hx Deep Vein Thrombosis, Hx Myocardial Infarction, Hx Pacemaker/ICD Respiratory History: Reports: Hx Chronic Obstructive Pulmonary Disease (COPD) Denies: Hx Asthma, Hx Lung Cancer, Hx Pneumonia, Hx Pulmonary Embolism GI History: Reports: Hx Gastroesophageal Reflux Disease - NO MEDS Denies: Hx Gall Bladder Disease, Hx Gastrointestinal Bleed, Hx Ulcer, Hx Urosepsis History: Denies: Hx Kidney Stones, Hx Renal Disease Musculoskeletal History: Reports: Hx Arthritis - KNEES, HANDS Sensory History: Reports: Hx Cataracts - BILAT, Hx Contacts or Glasses - READING Denies: Hx Hearing Aid Opthamlomology History: Reports: Hx Cataracts - BILAT, Hx Contacts or Glasses - READING Neurological History: Denies: Hx Dementia, Hx Migraine, Hx Seizures, Hx Transient Ischemic Attacks (TIA) Psychiatric History: Denies: Hx Anxiety, Hx Depression, Hx Panic Disorder - LAYING ON BELLY IS UNCOMFORTABLE BUT WILL TRY BEST, Hx Schizophrenia, Hx Bipolar Disorder - Cancer History Cancer Type, Location and Year: breast ca x 3 left breast Hx Chemotherapy: No Hx Radiation Therapy: Yes - BREAST, 1ST TIME 2006 LEFT - Surgical History Surgery Procedure, Year, and Place: 2005, 2009, 2015 Left breast lumpectomy [facility] [place]. 1983 C section X1 [facility]. 2008 L TKR [facility] ;. 12/27/2017 LEFT BREAST BIOSPSY, CLIPS, NEG. [facility] Hx Anesthesia Reactions: No Infectious Disease History: No Infectious Disease History: Denies: Hx Hepatitis, Hx Human Immunodeficiency Virus (HIV), Hx of Known/ Suspected MRSA, History Other Infectious Disease, Traveled Outside the [place] in Last 30 Days - Family History Known Family History: Positive: Cardiac Disease, Hypertension, Diabetes - Social History Occupation: Retired Lives: [facility] Alcohol Use: None Hx Substance Use: No Substance Use Type: Reports: None Hx Tobacco Use: No Smoking Status (MU): Never Smoked Tobacco Have You Smoked in the Last Year: No Review of Systems Constitutional: Negative Negative: Fever, Chills Gastrointestinal: Negative Musculoskeletal: Negative Positive: Other - incision wounds All Other Systems Reviewed And Are Negative: Yes Physical Exam Triage Information Reviewed: Yes Vital Signs On Initial Exam: Initial Vitals Temp Pulse Resp BP Pulse Ox 99.2 F 84 16 131/58 96 11/27/18 18:19 11/27/18 18:19 11/27/18 18:19 11/27/18 18:19 11/27/18 18:19 Vital Signs Reviewed: Yes Appearance: Positive: Well-Appearing - Pt. sitting up in bed in NAD. Skin: Positive: Warm, Dry, Other - Two incisions noted to the low lumbar region. Noted to left wound edges are mildly red. Small amount of clearish/ yellowish drainage. Minimal pain. Healing incision to right buttocks, granuloma noted. No abscess. Head/Face: Positive: Normal Head/Face Inspection Eyes: Positive: Normal, EOMI Neck: Positive: Supple Neurological: Positive: Normal, CN Intact II-III Psychiatric: Positive: Affect/Mood Appropriate Diagnostics - Vital Signs Vital Signs Temp Pulse Resp BP Pulse Ox 11/27/18 18:19 99.2 F 84 16 131/58 96 - Laboratory Result Diagrams: 11/27/18 19:40 11/27/18 19:40 Lab Statement: Any lab studies that have been ordered have been reviewed, and results considered in the medical decision making process. Course/Dx - Course Course Of Treatment: Pt. presenting for evaluation of chronic surgical wounds. long term was concerned about lumbar incision. Pt. is afebrile and well appearing. Pt. has no complaints of increased pain, fever, chills, N/V. She has some mild redness to left lumbar incision. CBC shows normal WBC. Chronic hyponatremia. CRP minimally elevated. I spoke with Dr. Junior who would like CT tonight to evaluate for deeper infection. He is concerned pt. may need admitted for further evaluation and MRI tomorrow. He wound also like consult with ID. I attempted to consult Dr. Neff but he is not avaliable tonight. CT scan is negative for acute findings, per radiology. I spoke with Dr. Boo, hospitalist, who examined pt. She spoke personally with Dr. Junior and plan will be to [facility] with addition of bactrim to rocephin. Dr. Boo recommends D/C HCTZ as she feels this is causing her chronic hyponatremia. Pt. needs to see neurosx Tuesday and ortho and ID within one week. To return to ER if sxs change or worsen. - Differential Diagnoses - Skin Complaint Differential Diagnoses: Abscess, Cellulitis, Contact Dermatitis - Diagnoses Provider Diagnoses: Skin wound from surgical incision Discharge - Sign-Out/Discharge Documenting (check all that apply): Patient Departure - Discharge Plan Condition: Good Disposition: HOME Prescriptions: Sulfamethox/Trimethoprim DS* [Bactrim DS 800/160 TAB*] 1 tab PO BID #20 tab Patient Education Materials: Chronic Wounds (ED) Referrals: Alejandra Castanon MD [Medical Doctor] - Tawanda ABDUL,Devin Astudillo [Medical Doctor] - Odalys Adames MD [Primary Care Provider] - Estephania Freeman MD [Medical Doctor] - Additional Instructions: Schedule an appointment with Dr. Junior on Tuesday You must see Dr. Castanon and Dr. Neff within one week for wound checks Continue rocephin as prescribed Take bactrim as directed Stop taking hydrochlorothiazide as it is most likely causing chronic low sodium Return to ER for fever, increased pain, increased redness or if concerned - Billing Disposition and Condition Condition: GOOD Disposition: Home
[2018-11-27 20:01] LABS: ABS Basophils 0.1 10^3/ul (0-0.2); ABS Eosinophils 0.2 10^3/ul (0-0.6); ABS Lymphocytes 0.8 10^3/ul (1.0-4.8); ABS Monocytes 0.7 10^3/ul (0-0.8); ABS Neutrophils 7.2 10^3/ul (1.5-7.7); ABS Nucleated RBC 0 10^3/ul; Eosinophil % 2.2 %; Hematocrit 27 % (35-47); Hemoglobin 8.7 g/dl (12.0-16.0); Lymphocyte % 8.4 %; Mean Corpuscular HGB Conc 33 g/dl (31-36); Mean Corpuscular Hemoglobin 25 pg (27-31); Mean Corpuscular Volume 76 fL (80-97); Mean Platelet Volume 7.1 fL (7.4-10.4); Nucleated Red Blood Cells % 0; Platelet Count 229 10^3/ul (150-450); Red Blood Count 3.52 10^6/ul (4.00-5.40); Red Cell Distribution Width 21 % (10.5-15)
[2018-11-27 20:17] LABS: Albumin 3.1 g/dL (3.2-5.2); BUN/Creatinine Ratio 23.9 (8-20); C Reactive Protein 28.08 mg/L (<8.01); EGFR Non-African American 81.2 (>60); Total Bilirubin 0.2 mg/dL (0.2-1.0); Total Protein 6.1 g/dL (6.4-8.9)
[2018-11-27] MEDS ORDERED: NS 0.9% 1000 ML* 1,000 ML IV ONE (20:23)
[2018-11-27] MEDS ORDERED: Iodixanol* (CONTRAST) 320 MG/ML 100 ML SDV IV ONE (21:06)
[2018-11-27] MEDS ORDERED: HYDROcodone/ACETAMIN 5-325 MG* 1 TAB PO ONE (22:04)
[2018-11-27] MEDS ORDERED: diPHENhydraMINE PO* 25 MG PO ONE (22:04)
[2018-11-27] MEDS ORDERED: Sulfamethox/Trimethoprim DS 800/160* TAB PO ONE (23:17)
[2018-11-28 00:40] VITALS: BP 119/56
--- NOTE | 2018-11-28 03:01 | CONS ---
CC: Dr. Freeman; Dr. Castanon; Dr. Neff; Nolberto Gaitan; Dr. Wright; Dr. Adames * CONSULTATION REPORT: DATE OF CONSULT: 11/27/18 - EMERGENCY DEPT REQUESTING PHYSICIAN: Dr. Wright and JOVANNI Mendes from the emergency department. REASON FOR CONSULT: Possibility of admission for questionable wound infection. CHIEF COMPLAINT: "I was sent here by nurses, they were concerned about my wounds." HISTORY OF PRESENT ILLNESS: Liz Leon is a 73-year-old female with complicated past medical history for the past month. The patient was hospitalized over the first 2 weeks of October 2018 for epidural abscess and group B streptococcus septicemia and prosthetic left knee infection. She also is status post right total hip replacement recently. The patient was discharged on 11/10/18 on intravenous ceftriaxone to complete 56 days of treatment and she continues to be on this medication right now. The patient is under the care of Dr. Neff, Dr. Freeman, and Dr. Castanon. She is also at [facility] for rehabilitation. She is nonweightbearing on the left leg that is to be in immobilizer when the patient is being moved. The patient presented to the hospital today after the nurses who did the dressing changes said they were concerned about it. The patient stated that the right hip scar has a small lesion and it had been weeping serous fluid for the past 3 weeks. The patient and her son does not recall if she had been seen by Dr. Castanon for followup of that. The patient denies any fevers. She has chronic postoperative pain that had not been worse than her baseline. She also had been complaining of constipation, although she did have a bowel movement today in the morning. The patient's C-reactive protein is 28 which is the lowest it has been since this patient's admission for epidural admission. Just 5 days ago, it was noted to be in the 50s. The patient had been afebrile. The ED provider requested a consultation in regards to possibility of admission. PAST MEDICAL HISTORY: 1. Group B strep septicemia with infected left knee prosthesis, status post prosthesis of the left knee removal and antibiotic spacer by Dr. Castanon during the patient's stay at the beginning of October 2018. 2. The patient has history of epidural abscess due to group B streptococcus septicemia status post minimal invasive L3-L4 arthrodesis with L3 and L4 bilateral pedicle screw placement, compressive laminectomies and evacuation of epidural abscess performed by Dr. Freeman on 10/31/18. 3. The patient is nonweightbearing on the left leg. 4. Hypertension. 5. History of anemia of chronic disease due to acute blood loss at the beginning of October 2018. 6. History of diabetes type 2. 7. History of breast cancer, status post lumpectomy and radiation. 8. Status post left total knee replacement as mentioned above with another surgery and antibiotic spacer placement as mentioned above. 9. History of bilateral carpal tunnel release. 10. History of . 11. Right total hip replacement. 12. Obesity. CURRENT MEDICATIONS: Include: 1. Omeprazole 20 mg daily. 2. Metformin 500 mg b.i.d. 3. Januvia 50 mg in a.m. 4. Magnesium oxide 800 mg daily. 5. Amlodipine 10 mg daily. 6. Lisinopril 30 mg daily. 7. Hydrochlorothiazide 12.5 mg q.a.m. 8. Vitamin D3 5000 units daily. 9. Ascorbic acid 1 tablet daily. 10. Ceftriaxone 2 g every 24 hours. 11. Insulin lispro sliding scale. 12. Milk of magnesia on a p.r.n. basis. 13. Lactulose on a p.r.n. basis. 14. Acetaminophen on a p.r.n. basis. 15. Benadryl 25 mg every 6 hours p.r.n. 16. Hydrocodone with acetaminophen 10/325 mg 1 tablet 3 times a day p.r.n. 17. Ferrous sulfate 325 mg daily. 18. Colace 100 mg at bedtime. ALLERGIES: LATEX and ADHESIVE. FAMILY HISTORY: Mom of heart disease. Father of renal failure. SOCIAL HISTORY: The patient denies any tobacco, alcohol or drug use. She is currently a resident of [facility] for rehab. She is single and she indicated her sister Jovany Castro will be her surrogate. REVIEW OF SYSTEMS: Please see history of present illness. All the remaining 12 systems were reviewed with the patient and were otherwise negative. PHYSICAL EXAMINATION: Blood pressure of 126/81, heart rate of 85 and regular, respiratory rate 16, oxygen saturation 98% on room air, temperature of 99.2. General: The patient is a pleasant 73-year-old female who is no acute distress. Alert, awake, and oriented x3. HEENT: Head: Atraumatic, normocephalic. Eyes: Pupils are equal, reactive to light and accommodation. Oropharynx is clear. Mucosa moist. Neck: Supple. No JVD. No bruits bilaterally. Cardiovascular: Regular rate and rhythm. No murmur. Respiratory : Clear to auscultation bilaterally. Abdomen: Soft, nontender. Bowel sounds present in all 4 quadrants. Extremities: There is no edema. Pulses are +2 bilaterally. No clubbing or cyanosis. On neuro evaluation, speech clear. Cranial nerves II through XII grossly intact. Motor strength is 5/5 bilaterally. The motor strength of the left leg was not examined due to the patient being nonweightbearing and the patient being very cautious with flexing the left leg and hip. The patient had no problems with plantar flexion and dorsiflexion of bilateral feet on evaluation and Babinski's were negative. Sensation grossly intact. On evaluation of the skin, the patient has 2 approximately 4 to 5 cm incisions along the lumbar spine of both sides. Those incisions are sutured and they do not appear to be healing. The wound edges are grossly approximated, but there is an area of approximately 0.5 cm of wound dehiscence in both of them. There is granulation tissue and slough noted on the bottom of the wounds. There is no evidence of infection. There is mild appearing chronic erythema on the edges of the skin surrounding the incision that is approximately 0.5 cm in diameter. There was no cellulitis noted. No drainage and no fluctuations on palpation. On the patient's right hip, there is scar with a formation of keloid-like tissue of approximately 5 cm in length and 2 cm in width and at one edge of the scar there is small mass-like pedunculated structure that is approximately 1.5 cm in diameter. It is in small mushroom-like shape and it is likely a granuloma. The structure is attached to the keloid. It does not appear to be infected. There is no erythema noted in the area. There is some scant serous drainage around the granuloma noted. On evaluation of the left knee incision, the midline incision of the left knee is sutured with no evidence of wound dehiscence and no cellulitis. DIAGNOSTIC STUDIES/LABORATORY DATA: White blood cell count of 9.3, hemoglobin of 8.7, hematocrit of 27, MCV of 76, and platelets of 229. Sodium was 124, potassium is 5.0, chloride 91, carbon dioxide 26, BUN 17, creatinine 0.71. Liver function tests were unremarkable. C-reactive protein was 28.08. CT of the C-spine obtained today, impression: "Postoperative changes without CT findings of an abscess. MRI would be a more sensitive examination if there is strong clinical concern." ASSESSMENT AND PLAN: 1. In regards to the patient's postoperative wound from her laminectomy and epidural abscess evacuation. I discussed the case with Dr. Freeman. The wounds do not appear to be healing well, but there is no evidence of an infection, which is proven by that the patient's C-reactive protein is the lowest it has ever been since her acute infection in the beginning of October 2018. At this point, Dr. Freeman recommended a course of Bactrim for 10 days to possibly help the healing process. The patient is to be continued on IV ceftriaxone as ordered by Dr. Neff. It is recommended for the patient to be evaluated by the Neurosurgery in the office as outpatient within the next week and specific instructions in regards to that were given to [facility]. At this point, there was no evidence of an acute wound infection that would necessitate for the patient to stay and be hospitalized. The patient can continue for outpatient followup. 2. In regards to the patient's right hip keloid and granuloma. Once again, it does not appear to be an acute issue. The patient stated that she has had this problem for at least the past 3 weeks. The patient is asked to follow up with Dr. Castanon within next week. 3. In regards to the patient's history of streptococcus septicemia, blood cultures were obtained during her current ER visits. Once again, she is nontoxic appearing, has not had any fevers and there is no evidence of an acute infection. She is to continue her ceftriaxone as previously prescribed by Dr. Neff and she is to follow up with Dr. Neff within the next week. TIME SPENT: Approximately 62 minutes were spent on patient's consult, more than half that time was spent [id number] with the patient during the interview and physical exam. Thank you very much for allowing me to see your patient in consultation. The case was discussed with Nolberto Gaitan, the PA as well as Dr. Freeman and the patient. [id number]/[facility] #: [id number] [facility]
== END 2018-11-28 00:41 | disposition home or self-care (01) ==
LOC: ED 18:09
DX: T81.31XA Disruption of external operation (surgical) wound, not elsewhere classified, initial encounter (principal); E11.9 Type 2 diabetes mellitus without complications; Z79.4 Long term (current) use of insulin; Z79.84 Long term (current) use of oral hypoglycemic drugs; I10 Essential (primary) hypertension; Z79.82 Long term (current) use of aspirin; Z96.652 Presence of left artificial knee joint; Z96.641 Presence of right artificial hip joint; Z85.3 Personal history of malignant neoplasm of breast; Z91.040 Latex allergy status; Z91.048 Other nonmedicinal substance allergy status
CPT/HCPCS: 36415; 72132; 80053; 85025; 86140; 87040; 96360; 99284; A9270-GY; Q9967

== ENCOUNTER 2018-12-13 15:04 | Inpatient (IN) | payer BC, MEDICARE ==
--- NOTE | 2018-12-13 15:12 | ED ---
Complex/Multi-Sys Presentation - HPI Summary HPI Summary: A 73 y/o F brought in by ambulance and referred by benny Bower, presents to ED with c/o chronic back pain. Patient has been living at [facility] and is currently being treated for an infection in back and knee for the past 6 months. She had an MRI this AM because there is a small wound on her R hip, and want to r/o infection. Pt had hip surgery in Jul 2018. Associated sx: chills, diaphoresis. Denies fever, hip pain. - History Of Current Complaint Hx Obtained From: Patient, EMS Onset/Duration: Still Present Associated Signs And Symptoms: Positive: Back Pain, Diaphoresis, Other - pos: chills; neg: hip pain. Negative: Fever - Allergies/Home Medications Allergies/Adverse Reactions: Allergies Allergy/AdvReac Type Severity Reaction Status Date / Time latex Allergy Severe Rash Verified 12/13/18 15:18 adhesive Allergy Intermediate Rash Verified 12/13/18 15:18 Home Medications: Home Medications Ascorbic Acid TAB* [Vitamin C TAB*] 500 mg PO DAILY 12/13/18 [History Confirmed 12/13/18] Calcium Carbonate CHEW TAB* [Tums*] 500 mg PO TID PRN 12/13/18 [History Confirmed 12/13/18] Heparin Sodium,Porcine/Pf [Heparin 100 Unit/10 ml (10/ml)] 10 unit IV DAILY [History Confirmed 12/13/18] Hydrocodone/Acetamin 10/325(NF [[place] 10/325 (NF)] 1 tab PO BEDTIME PRN [History Confirmed 12/13/18] Hydrocodone/Acetamin 10/325(NF [[place] 10/325 (NF)] 1 tab PO TID 12/13/18 [ History Confirmed 12/13/18] Lisinopril TAB* [Prinivil TAB*] 20 mg PO DAILY 12/13/18 [History Confirmed 12/13] Magnesium Hydroxide LIQ* [Milk of Magnesia LIQ*] 30 ml PO BID PRN 12/13/18 [ History Confirmed 12/13/18] Nystatin TOP POWDER* 1 applic TOPICAL BID PRN 12/13/18 [History Confirmed ] Sitagliptin (NF) [Januvia (NF)] 50 mg PO DAILY 12/13/18 [History Confirmed 12/13] amLODIPine TAB* [Norvasc 5 mg TAB*] 10 mg PO DAILY 12/13/18 [History Confirmed 12/13/18] diPHENhydraMINE PO* [Benadryl PO 25 MG TAB*] 25 mg PO Q6H PRN 12/13/18 [History Confirmed 12/13/18] metFORMIN* [Glucophage 500 MG TAB *] 500 mg PO 0900,1800 12/13/18 [History Confirmed 12/13/18] PMH/Surg Hx/FS Hx/Imm Hx Previously Healthy: No Endocrine/Hematology History: Reports: Hx Anticoagulant Therapy - Aspirin., Hx Diabetes Denies: Hx Thyroid Disease Cardiovascular History: Reports: Hx Hypertension, Hx Peripheral Vascular Disease Denies: Hx Congestive Heart Failure, Hx Deep Vein Thrombosis, Hx Myocardial Infarction, Hx Pacemaker/ICD Respiratory History: Reports: Hx Chronic Obstructive Pulmonary Disease (COPD) Denies: Hx Asthma, Hx Lung Cancer, Hx Pneumonia, Hx Pulmonary Embolism GI History: Reports: Hx Gastroesophageal Reflux Disease - NO MEDS Denies: Hx Gall Bladder Disease, Hx Gastrointestinal Bleed, Hx Ulcer, Hx Urosepsis History: Denies: Hx Kidney Stones, Hx Renal Disease Musculoskeletal History: Reports: Hx Arthritis - KNEES, HANDS Sensory History: Reports: Hx Cataracts - BILAT, Hx Contacts or Glasses - READING Denies: Hx Hearing Aid Opthamlomology History: Reports: Hx Cataracts - BILAT, Hx Contacts or Glasses - READING Neurological History: Denies: Hx Dementia, Hx Migraine, Hx Seizures, Hx Transient Ischemic Attacks (TIA) Psychiatric History: Denies: Hx Anxiety, Hx Depression, Hx Panic Disorder - LAYING ON BELLY IS UNCOMFORTABLE BUT WILL TRY BEST, Hx Schizophrenia, Hx Bipolar Disorder - Cancer History Cancer Type, Location and Year: breast ca x 3 left breast Hx Chemotherapy: No Hx Radiation Therapy: Yes - BREAST, 1ST TIME 2006 LEFT - Surgical History Surgery Procedure, Year, and Place: 2005, 2009, 2015 LEFT BREAST [place] [facility] [place]. 1984 C section X1 [facility] [place]. 2008 L TOTAL KNEE REPLACEMENT [facility] [place] ;. 12/27/2017 LEFT BREAST BIOSPSY, CLIPS, NEG. [facility]. BACK SURGERY Oct. RIGHT HIP REPLACEMENT AUG 17 2018 Hx Anesthesia Reactions: No Infectious Disease History: Denies: Hx Hepatitis, Hx Human Immunodeficiency Virus (HIV), Hx of Known/ Suspected MRSA, History Other Infectious Disease - Family History Known Family History: Positive: Cardiac Disease, Hypertension, Diabetes - Social History Occupation: Employed Full-time Lives: With Family Alcohol Use: None Hx Substance Use: No Substance Use Type: Reports: None Hx Tobacco Use: No Smoking Status (MU): Never Smoked Tobacco Have You Smoked in the Last Year: No Review of Systems Positive: Chills, Skin Diaphoresis. Negative: Fever Musculoskeletal: Other - pos: back pain; neg: hip pain Skin: Other - small wound to R hip All Other Systems Reviewed And Are Negative: Yes Physical Exam - Summary Physical Exam Summary: VITAL SIGNS: Reviewed. GENERAL: Patient is a well-developed and nourished FEMALE who is lying comfortable in the stretcher. Patient is not in any acute respiratory distress. HEAD AND FACE: No signs of trauma. No ecchymosis, hematomas or skull depressions. No sinus tenderness. EYES: PERRLA, EOMI x 2, No injected conjunctiva, no nystagmus. EARS: Hearing grossly intact. Ear canals and tympanic membranes are within normal limits. MOUTH: Oropharynx within normal limits. NECK: Supple, trachea is midline, no adenopathy, no JVD, no carotid bruit, no c- spine tenderness, neck with full ROM. CHEST: Symmetric, no tenderness at palpation LUNGS: Clear to auscultation bilaterally. No wheezing or crackles. CVS: Regular rate and rhythm, S1 and S2 present, no murmurs or gallops appreciated. ABDOMEN: Soft, non-tender. No signs of distention. No rebound, no guarding, and no masses palpated. Bowel sounds are normal. EXTREMITIES: FROM in all major joints, no edema, no cyanosis or clubbing. Good pulses. NEURO: Alert and oriented x 3. No acute neurological deficits. Speech is normal and follows commands. SKIN: Dry and warm. Healing surgical scar to L knee. The R hip has a small, dried wound with mild brown discharge, no erythema. Triage Information Reviewed: Yes Vital Signs Reviewed: Yes Diagnostics - Laboratory Result Diagrams: 12/14/18 05:50 12/14/18 05:50 Lab Statement: Any lab studies that have been ordered have been reviewed, and results considered in the medical decision making process. - Radiology CXR Radiology Interpretation Completed By: Radiologist Summary of Radiographic Findings: IMPRESSION: No evidence for active cardiopulmonary disease. ED provider has reviewed this report. - EKG 1539 Cardiac Rate: NL - 83 bpm EKG Rhythm: Sinus Rhythm ST Segment: Normal - no ST elevation Complex Multi-Symp Course/Dx Assessment/Plan: A 73 y/o F brought in by ambulance and referred by benny Bower, presents to ED with c/o chronic back pain. Patient has been living at [facility] and is currently being treated for an infection in back and knee for the past 6 months. She had an MRI this AM because there is a small wound on her R hip, and want to r/o infection. Pt had hip surgery in Jul 2018. Associated sx : chills, diaphoresis. Denies fever, hip pain. MRI impression: Fluid collection at the interface of the subcutaneous tenderness tissue plane and muscular larger at the lateral aspect of the right hip with suggestion of sinus tract. Bone marrow edema flank in the postsurgical L3-L 4 disc space concerning for presence of osteomyelitis discitis. Blood test results shows a slight anemia, sodium 126, potassium 5.2, chloride 94, creatinine 1.17, glucose 137, and CRP of 28.6. In the ED course, the patient was placed on IV fluids and I gave the patient vancomycin. I discussed the case with Dr. Castanon who will consult for the patient and also recommends for the patient to be admitted to the hospital services. I discussed the case with Dr. Houston from the hospital services who accepted the patient for admission. Patient is hemodynamically stable, alert oriented 3. - Diagnoses Provider Diagnoses: Osteomyelitis, Bacterial infection of the hip - Physician Notifications Discussed Care Of Patient With: Alejandra zapata Time Discussed With Above Provider: 15:12 Instructed by Provider To: Other - Recommends pre-surgery blood work and admission to hospitalist Discharge - Sign-Out/Discharge Documenting (check all that apply): Patient Departure - ADM - Discharge Plan Condition: Stable Disposition: ADMITTED TO [facility] - Billing Disposition and Condition Condition: STABLE Disposition: Admitted to [facility] - Attestation Statements Document Initiated by Scribe: Yes Documenting Scribe: Jennifer Bain Provider For Whom Scribe is Documenting (Include Credential): Dr. Jose Chow MD Scribe Attestation: I, Jennifer Bain, scribed for Dr. Jose Chow MD on 12/14/18 at 0758. Scribe Documentation Reviewed: Yes Provider Attestation: The documentation as recorded by the scribe, Jennifer Bain accurately reflects the service I personally performed and the decisions made by me, Dr. Jose Chow MD Status of Scribe Document: Viewed Consult Consult: 1705: Consult with Dr. Huoston, hospitalist Will admit patient.
[2018-12-13] MEDS ORDERED: Vancomycin(*) 1,000 MG in NS 0.9% 250 ML* 250 ML IVPB ONE (15:16)
--- OUTSIDE RECORDS SUMMARY | 2018-12-13 15:26 | XMS REPORT | Continuity of Care Document ---
:1945 External Reference #:[id number] Author Name Vanessa Bragg Care Team Providers Name Role Phone Odalys Adames MD Primary Care Physician Unavailable Payers Type Date Identification Numbers Payment Provider Subscriber Policy Number: [id number] [employer] Ashia Herrera PayID: [id number] [address] [address] BRAULIO Nava [address] Expires: 2018 Policy Number: [id number] [facility] Ashia Herrera Group Number: [id number] [address] PayID: [id number] BRAULIO Garcia [address] Effective: 2017 Policy Number: [id number] [employer] Ashia Herrera Onset: 2017 Group Name: Sheron [phone] [address] PayID: [id number] [place] [address] Advance Directives Description No Information Available Problems [...] 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 [...] Oxycodone HCL Active Unknown /0000 Ceftriaxone Sodium Hx Solution 2gm 2 grams Unknown /0000 [facility] Amlodipine Active Tablets 10mg 1 by mouth Unknown Besylate /0000 every day Omeprazole Active Capsules 20mg 1 by mouth Unknown /0000 DR every day Colace 08/21 Hx Capsules 100mg 90cap 1 tab every s 12 hours as Lg, - needed for M.D. 09/24 constipati n Warfarin Sodium 08/21 Hx Tablets 2mg [...] mouth once - a day 08/06 Potassium Hx Tablets 99mg once a day Unknown /0000 - 08/06 Tramadol HCL 00 Hx Tablets 50mg 1-2 tablets Unknown /0000 every 6 - hours as 09/24 Ibuprofen Hx Tablets 200mg as needed Unknown / - 08/06 Immunizations Description No Information Available Vital Signs Date Vital Result Comment 12/05/2018 9:59am Height 68 inches 5'8" Weight 206.00 lb per pt Heart Rate 84 /min BP Systolic Sitting 102 mmHg BP Diastolic Sitting 54 mmHg Respiratory Rate 14 /min Body Temperature 98.0 F BMI (Body Mass Index) 31.3 kg/m2 12/01/2018 11:49am Height 68 inches 5'8" Weight 220.00 lb BP Systolic Sitting 120 mmHg BP Diastolic Sitting 70 mmHg Body Temperature 98.4 F Pain Level 8 BMI (Body Mass Index) 33.4 kg/m2 11/17/2018 2:46pm Height 68 inches 5'8" Heart [...] Date Facility Test Result H/L Range Note Basic Metabolic 12/06/2018 [facility] [place] Sodium 128 mmol/L Low 135-145 [address] [place] [address] [phone] Chloride 97 mmol/L Low 101-111 Co2 Carbon Dioxide 24 mmol/L N 22-32 Glucose 116 mg/dL High 70-100 Blood Urea Nitrogen 15 mg/dL N 6-24 Creatinine 0.91 mg/dL N 0.51-0.95 BUN/Creatinine Ratio 16.5 N 8-20 Calcium 9.1 mg/dL N 8.6-10.3 Egfr Non- 60.9 >60 Egfr 73.7 >60 2 Potassium 5.5 mmol/L High 3.5-5.0 Anion Gap 7 mmol/L N 2-11 Laboratory test 12/06/2018 [facility] [place] Osmolality 280 mOsm/kg N 275-295 [address] [place] [address] [phone] CBC Auto Diff 11/13/2018 [facility] [place] White Blood 7.0 10^3/uL N 3.5-10.[address] [place] [address] [phone] Red Blood Count 3.41 10^6/uL Low 4.00-5.40 [...] Cells % 0.1 Comp Metabolic Panel 11/13/2018 [facility] [place] Sodium 131 mmol/L Low 135-[address] [place] [address] [phone] Potassium 4.8 mmol/L N 3.5-5.0 Chloride 94 [...] Egfr Non- 96.7 >60 Egfr 117.0 >60 5 Laboratory test 11/13/2018 [facility] [place] C Reactive 58.17 mg/L High <8.01 [address] [place] [address] [phone] Urine Culture And 08/07/2018 [facility] [place] Urine SEE RESULT [address] [place] [address] [phone] Type & Screen 08/07/2018 [facility] [place] Patient A Positive [address] [place] [address] [phone] Antibody Screen NEGATIVE Laboratory test 08/07/2018 [facility] [place] Partial 30.1 seconds N 26.0-36.[address] [place] [address] PTT [phone] Inr/Protime 08/07/2018 [facility] [place] Inr 0.87 N 0.77-1.[address] [place] [address] [phone] Urinalysis 08/07/2018 [facility] [place] Urine Color Straw Profile [address] [place] [address] [phone] Urine Appearance Clear Urine Specific [place] 1.005 Low 1.010-1.030 Urine pH 7.0 N [...] Urine Squamous Epithelial Cell Present Abnormal Absent Laboratory test 02/13/2018 [facility] [place] Point of Care 134 mg/dL High 70-100 [address] [place] [address] [phone] Laboratory test 01/23/2018 [facility] [place] Point of Care 133 mg/dL High 70-100 [address] [place] [address] [phone] Laboratory test 10/24/2017 [facility] [place] Surgical SEE RESULT [address] [place] [address] [phone] Wound 04/11/2017 [facility] [place] Wound/Misc SEE RESULT 11 Culture/Sensi [address] [place] [address] Stain [phone] Wound 03/03/2017 [facility] [place] Wound/Misc SEE RESULT 12, 13 Culture/Sensi [address] [place] [address] Stain [phone] 1 [facility] - Floor: 1, Rm #: [id number] 2 Because ethnic data is not always [...] 5 Kidney failure <15 (or dialysis) 3 [facility] - Floor: 1, Rm #: [id number] 4 [facility] - Floor: 1, Rm #: [id number] 5 Because ethnic data is not always readily [...] 15-29 5 Kidney failure <15 (or dialysis) 6 [facility] - Floor: 1, #: [id number] 7 SEE RESULT BELOW Name: ASHIA HERRERA : [address]: Alejandra Castanon MD Acct: [id number] Unit: [id number] AGE: 73 Location: [facility] Re08/07/18 SEX: F Status: REG REF SPEC: [id number] LUKE: 08/07/18-[address]: Alejandra Castanon MD REQ: [id number] RECD: 08/07/18 STATUS: COMP _ SOURCE: URINE SPDESC: ORDERED: Urine Culture QUERIES: Urine Source: Clean Catch Procedure Result Reported Site Urine Culture Final 08/08/18- 1246 ML No growth of clinically significant organisms * ML - Main Lab . END OF REPORT DEPARTMENT OF PATHOLOGY, [address] [place] [address] Richard Browning M.D. Director [facility] # [id number] Cloak Room Attendant: [id number] Cloak Room Attendant: [id number] SEE RESULT BELOW Name: ASHIA HERRERA : [address]: Amina Solomon MD Acct: [id number] Unit: [id number] AGE: 72 Location: WOUND Re10/24/17 SEX: F Status: REG REF SPEC: [id number] LUKE: 10/24/[address] [facility] [address]: Amina Solomon MD REQ: [id number] RECD: 10/24/17 STATUS: JUAN ESTRADA DR: Ashlee [...] performed at Main Lab DEPARTMENT OF PATHOLOGY, [address] [place] [address] Richard Browning M.D. Director [facility] # [id number] 11 SEE RESULT BELOW Name: ASHIA HERRERA : [address]: Ashlee Arvizu MD Acct: [id number] Unit: [id number] AGE: 71 Location: WOUND Re04/11/17 SEX: F Status: REG REF SPEC: [id number] LUKE: 04/11/[address] [facility] [address]: Ashlee Arvizu MD REQ: [id number] RECD: 04/11/17 STATUS: TYLOR ESTRADA DR: Blanca [...] performed at Main Lab DEPARTMENT OF PATHOLOGY, [address] [place] [address] Richard Browning M.D. Director [facility] # [id number] 12 LEFT MEDIAL FOOT ULCER 13 SEE RESULT BELOW Name: ASHIA HERRERA : [address]: Ashlee Arvizu MD Acct: [id number] Unit: [id number] AGE: 71 Location: WOUND Re03/03/17 SEX: F Status: REG REF SPEC: [id number] LUKE: 03/03/[address] [facility] [address]: Blanca Castro RURAL SOCIOLOGIST REQ: [id number] RECD: 03/03/17 STATUS: TYLOR ESTRADA DR: Ashlee Adames MD _ SOURCE: FOOT,LEFT SPDESC: ORDERED: Culture Stain COMMENTS: LEFT MEDIAL FOOT ULCER QUERIES: Specimen Description RED SWAB Procedure Result Reported Site Wound/Misc Gram Stain Final 03/03/17- 1059 ML 1+ Epithelial Cells 3+ Neutrophils 1+ Gram Positive Bacilli Wound/Misc Culture Final 03/05/17- 08 ML Organism 1 NORMAL NNEKA Quantity 1+ * ML - MAIN LAB ([facility]) . END OF REPORT * ML=Testing performed at Main Lab DEPARTMENT OF PATHOLOGY, [address] [place] [address] Richard Browning M.D. Director [facility] # [id number] Procedures Date Code Description Status 11/02/2018 50265 Removal Of Prosthesis, Incl TKR Prosthesis,W Or W/O Completed Insert Spacer 11/02/2018 22575 Removal Of Prosthesis, Incl TKR Prosthesis,W Or W/O Completed Insert Spacer 11/02/2018 70022 Removal Of Prosthesis, Incl TKR Prosthesis,W Or W/O Completed Insert Spacer 11/02/2018 65392 Removal Of Prosthesis, Incl TKR Prosthesis,W Or W/O Completed Insert Spacer 11/02/2018 86980 Removal Of Prosthesis, Incl TKR Prosthesis,W Or W/O Completed Insert Spacer 11/01/2018 62518 ECHO Transthorasic Realtime 2D W Doppler & Color Flow Completed Hosp 10/31/2018 99916 Non-Segmental Instrumentation Posterior 1 Interspace Completed 10/31/2018 63534 Non-Segmental Instrumentation Posterior 1 Interspace Completed 10/31/2018 34195 Non-Segmental Instrumentation Posterior 1 Interspace Completed 10/31/2018 52493 Non-Segmental Instrumentation Posterior 1 Interspace Completed 10/31/2018 42780 Stereotactic Computer-Assisted, Spinal Completed 10/31/2018 25504 Stereotactic Computer-Assisted, Spinal Completed 10/31/2018 70379 Laminectomy;For Intraspinal Lesion/Lumbar Completed 10/31/2018 20388 Laminectomy;For Intraspinal Lesion/Lumbar Completed 10/31/2018 57696 Laminectomy;For Intraspinal Lesion/Lumbar Completed 10/31/2018 67111 Laminectomy;For Intraspinal Lesion/Lumbar Completed 10/31/2018 96284 Use Of Operating Microscope Completed 10/31/2018 67541 Use Of Operating Microscope Completed 08/17/2018 95840 THR Total Hip Replacement Completed 08/17/2018 25976 THR Total Hip Replacement Completed 02/13/2018 46659 Carpal Tunnel Release Completed 02/13/2018 13321 Carpal Tunnel Release Completed 02/13/2018 53638 Carpal Tunnel Release Completed 01/23/2018 43508 Carpal Tunnel Release Completed 01/23/2018 28021 Carpal Tunnel Release Completed 01/23/2018 75994 Carpal Tunnel Release Completed 10/26/201781961 Aspiration &/Or Inj Of Ganglion Cyst(S) Any Location Completed 10/26/2017 Aspiration &/Or Inj Of Ganglion Cyst(S) Any Location Completed 10/26/2017 Aspiration &/Or Inj Of Ganglion Cyst(S) Any Location Completed 10/24/2017 73900 Removal Devitalization Tissue Wound Less Than Equal 20 [address] Square CM 03/28/2017 72601 Removal Devitalization Tissue Wound Less Than Equal [address] CM 03/07/2017 22317 Removal Devitalized Tissue Wound Greater Than 20 Square Completed CM 03/07/2017 65558 Removal Devitalization Tissue Wound Less Than Equal [address] CM 03/03/2017 78593 Removal Devitalization Tissue Wound Less Than Equal [address] CM 10/06/2015 09649025 Mammogram Completed 09/25/2015 79647017 Mammogram Completed 11/17/2012 05974747 Mammogram Completed 11/14/2012 64671236 Mammogram Completed 03/08/2012 97440705 Mammogram Completed Encounters Type Date Location Provider Dx Diagnosis Office Visit 11/10/2018 [facility] Diya Goyal, A40.1 Sepsis due to 1:07p Assdavidson davies M.D. 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 subdural abscess, Hospitalists unspecified T84.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, subs D64.9 Anemia, unspecified I10 Essential (primary) hypertension E11.9 Type 2 diabetes mellitus without complications B85.2 Pediculosis, unspecified Office Visit 11/08/2018 1:34p [facility] Aleksander Astudillo G06.1 Intraspinal Infectious Keith Uribe abscess and Diseases granuloma T84.54xA Infect/inflm reaction due to internal left knee prosth, init E11.9 Type 2 diabetes mellitus without complications R19.7 Diarrhea, unspecified Office Visit 11/08/2018 [facility] Extradural and Assoc,Sofi BermeoD. subdural abscess, Hospitalists unspecified T84.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, subs D64.9 Anemia, unspecified I10 Essential (primary) hypertension E11.9 Type 2 diabetes mellitus without complications B85.2 Pediculosis, unspecified Office 11/07/2018 [facility] T84.54xD Infect/inflm Visit 1:07p davidson De Guzman M.D. 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, unspecified N17.9 Acute kidney failure, unspecified E11.9 Type 2 diabetes mellitus without complications I10 Essential (primary) hypertension K59.00 Constipation, unspecified B85.2 Pediculosis, unspecified Office Visit 11/01/2018 [facility] T84.54xA Infect/inflm 10:09a Services Of JOVANNI Santos reaction due to internal left knee prosth, init Office Visit 11/01/2018 [facility] G06.2 Extradural and 1:05p Assoc,pc Henna, RURAL SOCIOLOGIST subdural abscess, Hospitalists unspecified M43.26 Fusion of spine, lumbar region N17.9 Acute kidney failure, unspecified I10 Essential (primary) hypertension E11.9 Type 2 diabetes mellitus without complications B85.2 Pediculosis, unspecified K59.00 Constipation, unspecified Office Visit 11/01/2018 12:31p [facility] Keanu Astudillo G06.1 Intraspinal Infectious Keith Uribe abscess and Diseases granuloma M25.562 Pain in left knee Z96.652 Presence of left artificial knee joint R78.81 Bacteremia B95.1 Streptococcus, group B, causing diseases classd elswhr Office Visit 11/01/2018 Orthopedic Nghia Garcia, T84.54xA Infect/inflm 3:20p Services Of reaction due to C.M.A. internal left knee prosth, init Office Visit 10/31/2018 [facility] G06.2 Extradural and 1:04p Assoc,pc Shortle, RURAL SOCIOLOGIST subdural abscess, Hospitalists unspecified N17.9 Acute kidney failure, unspecified I10 Essential (primary) hypertension E87.1 Hypo-osmolality and hyponatremia E11.9 Type 2 diabetes mellitus without complications M53.2x6 Spinal instabilities, lumbar region K59.00 Constipation, unspecified Office Visit 10/30/2018 [facility] G06.1 Intraspinal 7:00a Services Of Allen Freeman MD abscess and granuloma M53.2x6 Spinal instabilities, lumbar region Office Visit 10/30/2018 12:13p [facility] Devin Astudillo G06.1 Intraspinal Infectious Keith Uribe abscess and Diseases granuloma G95.29 Other cord compression R78.81 Bacteremia Z96.641 Presence of right artificial hip joint E11.9 Type 2 diabetes mellitus without complications Office [facility]/30[facility]2018 [facility] and Assoc,pc Palomo Gasca. subdural abscess, Hospitalists unspecified E87.1 Hypo-osmolality and hyponatremia N17.9 Acute kidney failure, unspecified E11.9 Type 2 diabetes mellitus without complications D64.9 Anemia, unspecified Office Visit 08/21/2018 11:30a [facility] Yolandalibra Daly, Z47.1 Aftercare Assoc,pc N.P. following joint Hospitalists replacement surgery Z96.641 Presence of right artificial hip joint E87.1 Hypo-osmolality and hyponatremia N17.9 Acute kidney failure, unspecified I10 Essential (primary) hypertension E11.9 Type 2 diabetes mellitus without complications Office Visit 08/20/2018 11:30a [facility] Yolanda Addy, Z47.1 Aftercare Assoc,pc N.P. following joint Hospitalists replacement surgery Z96.641 Presence of right artificial hip joint E87.1 Hypo-osmolality and hyponatremia N17.9 Acute kidney failure, unspecified I10 Essential (primary) hypertension E11.9 Type 2 diabetes mellitus without complications Office Visit 08/19/2018 [facility] Crystal Z47.1 Aftercare 11:29a Assoc,davidson Mathis NP following joint Hospitalists replacement surgery Z96.641 Presence of right artificial hip joint E87.1 Hypo-osmolality and hyponatremia I10 Essential (primary) hypertension E11.9 Type 2 diabetes mellitus without complications N17.9 Acute kidney failure, unspecified Office Visit 08/18/2018 [facility] Crystal Z96.641 Presence of 11:23a Assoc,pc MARILOU Mathis right artificial Hospitalists hip joint Z47.1 Aftercare following joint replacement surgery I10 Essential (primary) hypertension E11.9 Type 2 diabetes mellitus without complications E87.1 Hypo-osmolality and hyponatremia N17.9 Acute kidney failure, unspecified Office Visit 08/17/2018 11:07a [facility] Frantz Rebollar, E11.9 Type 2 diabetes davidson De Guzman MD mellitus without Hospitalists complications Z85.3 Personal [...] Amina Diaz E11.621 Type 2 diabetes AT [facility] [place] Juanito mellitus with foot ulcer L97.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 L97.822 Non-prs chronic ulcer oth prt l low leg w fat layer exposed I87.313 Chronic venous hypertension w ulcer of bilateral low extrm I10 Essential (primary) hypertension Office Visit 04/27/2017 1:00p Wound Care Amina Diaz E11.621 Type 2 diabetes Center AT [facility] MD Juanito mellitus with foot ulcer L97.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 L97.822 Non-prs chronic ulcer oth prt l low leg w fat layer exposed I87.313 Chronic venous hypertension w ulcer of bilateral low extrm I10 Essential (primary) hypertension Office Visit 03/07/2017 12:10p Wound Care Blanca Castro, E11.621 Type 2 diabetes Center AT [facility] HEIDI RN, MARINE EXTENSION AGENT-BC mellitus with foot ulcer L97.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 L97.822 Non-prs chronic ulcer oth prt l low leg w fat layer exposed R60.0 Localized edema M79.662 Pain in left lower leg I87.2 Venous insufficiency (chronic) (peripheral) Office Visit 03/03/2017 10:55a Wound Care Blanca Castro, E11.621 Type 2 diabetes Center AT [facility] JOHN GORDON, MARINE EXTENSION AGENT-BC mellitus with foot ulcer L97.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 left lower limb Diseases Z96.652 Presence of left artificial knee joint Office Visit 06/30/2016 [facility] Alysha Boo, L03.116 Cellulitis of 2:18p davidson De Guzman M.D. left lower limb Hospitalists E11.621 Type 2 diabetes mellitus with foot ulcer R65.20 Severe sepsis without septic shock Office Visit 06/29/2016 9:16a [facility] Devin Astudillo L03.116 Cellulitis of For Halle Uribe M.D. 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
--- OUTSIDE RECORDS SUMMARY | 2018-12-13 15:26 | XMS REPORT | Continuity of Care Document ---
:1945 External Reference #:[id number] Author Name Floridalma Jorgensen Care Team Providers Name Role Phone Odalys Adames MD Primary Care Physician Unavailable Payers Type Date Identification Numbers Payment Provider Subscriber Policy Number: [id number] [employer] Ashia Herrera PayID: [id number] [address] [address] BRAULIO Nava [address] Expires: 2018 Policy Number: [id number] [facility] Ashia Herrera Group Number: [id number] [address] PayID: [id number] BRAULIO Garcia [address] Effective: 2017 Policy Number: [id number] [employer] Ashia Herrera Onset: 2017 Group Name: Sheron [phone] [address] PayID: [id number] [place] [address] Advance Directives Description No Information Available Problems [...] 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 @ [employer] ETOH Use Denies alcohol use Tobacco Use [...] Unknown /0000 Rec daily iv at - [facility] x 12/25 56 Amlodipine Active Tablets 10mg [...] Available Vital Signs Date Vital Result Comment 12/13/2018 10:35am Height 68 inches 5'8" Weight 206.00 lb BP Systolic Sitting 130 mmHg BP Diastolic Sitting 80 mmHg Pain Level 8 BMI (Body Mass Index) 31.3 kg/m2 12/05/2018 9:59am Height 68 inches 5'8" Weight [...] Result H/L Range Note Basic Metabolic 12/06/2018 [facility] Sodium 128 mmol/L Low 135-[address] [place] [address] [phone] Chloride 97 mmol/L Low 101-111 Co2 Carbon Dioxide 24 mmol/L N 22-32 Glucose 116 mg/dL High 70-100 Blood Urea Nitrogen 15 mg/dL N 6-24 Creatinine 0.91 mg/dL N 0.51-0.95 BUN/Creatinine Ratio 16.5 N 8-20 Calcium 9.1 mg/dL N 8.6-10.3 Egfr Non- 60.9 >60 Egfr 73.7 >60 2 Potassium 5.5 mmol/L High 3.5-5.0 Anion Gap 7 mmol/L N 2-11 Laboratory test 12/06/2018 [facility] Osmolality 280 mOsm/kg N 275-295 [address] [place] [address] [phone] CBC Auto Diff 11/13/2018 [facility] White Blood 7.0 10^3/uL N 3.5-10.[address] [place] [address] [phone] Red Blood Count 3.41 10^6/uL Low 4.00-5.40 [...] Cells % 0.1 Comp Metabolic Panel 11/13/2018 [facility] Sodium 131 mmol/L Low 135-[address] [place] [address] [phone] Potassium 4.8 mmol/L N 3.5-5.0 Chloride 94 [...] Egfr 117.0 >60 5 Laboratory test 11/13/2018 [facility] C Reactive 58.17 mg/L High <8.[address] [place] [address] [phone] Urinalysis 08/07/2018 [facility] Urine Color Straw [place] [address] [place] [address] [phone] Urine Appearance Clear Urine Specific Doswell 1.005 Low 1.010-1.030 Urine pH 7.0 N [...] Epithelial Cell Present Abnormal Absent Inr/Protime 08/07/2018 [facility] Inr 0.87 N 0.77-1.[address] [place] [address] [phone] Laboratory test 08/07/2018 [facility] Partial 30.1 seconds N 26.0-36.[address] [place] [address] PTT [phone] Type & Screen 08/07/2018 [facility] Patient A Positive [address] [place] [address] [phone] Antibody Screen NEGATIVE Urine Culture And 08/07/2018 [facility] Urine Culture SEE RESULT [address] [place] [address] [phone] Laboratory test 02/13/2018 [facility] Point of Care 134 mg/dL High 70-1 [address] Glucose 00 [place], [place] [id number] [phone] Laboratory test 01/23/2018 [facility] Point of Care 133 mg/dL High 70-1 [address] Glucose 00 [place] [address] [phone] Laboratory test 10/24/2017 [facility] Surgical SEE RESULT [address] [place] [address] [phone] Wound 04/11/2017 [facility] Wound/Misc SEE RESULT 11 Culture/Sensi [address] [place] [address] Stain [phone] Wound 03/03/2017 [facility] Wound/Misc SEE RESULT 12, 13 Culture/Sensi [address] [address] Stain [phone] 1 [facility] - Floor: 1, Rm #: [id number] 2 Because ethnic data is not always [...] 5 Kidney failure <15 (or dialysis) 3 [facility] - Floor: 1, Rm #: [id number] 4 [facility] - Floor: 1, Rm #: [id number] 5 Because ethnic data is not always [...] 5 Kidney failure <15 (or dialysis) 6 [facility] - Floor: 1, Rm #: [id number] 7 SEE RESULT BELOW Name: ASHIA HERRERA : [address]: Alejandra Castanon MD Acct: [id number] Unit: [id number] AGE: 73 Location: [facility] Re08/07/18 SEX: F Status: REG REF SPEC: [id number] LUKE: 08/07/18-[address] [facility] [address]: Alejandra Castanon MD REQ: [id number] RECD: 08/07/18 STATUS: COMP _ SOURCE: URINE SPDESC: ORDERED: Urine Culture QUERIES: Urine Source: Clean Catch Procedure Result Reported Site Urine Culture Final 08/08/18- 1246 ML No growth of clinically significant organisms * ML - Main Lab . END OF REPORT DEPARTMENT OF PATHOLOGY, [address] [place] [address] Richard Browning M.D. Director [facility] # [id number] Mental Health Social Worker: [id number] Mental Health Social Worker: [id number] 10 SEE RESULT BELOW Name: ASHIA HERRERA : [address]: Amina Solomon MD Acct: [id number] Unit: [id number] AGE: 72 Location: WOUND Re10/24/17 SEX: F Status: REG REF SPEC: [id number] [place]KE: 10/24/[address] [facility] [address]: Amina Solomon MD REQ: [id number] RECD: 10/24/17 STATUS: JUAN ESTRADA DR: Ashlee [...] performed at Main Lab DEPARTMENT OF PATHOLOGY, [address] [place] [id number] Richard Browning M.D. Director [facility] # [id number] 11 SEE RESULT BELOW Name: ASHIA HERRERA : [address]: Ashlee Arvizu MD Acct: [id number] Unit: [id number] AGE: 71 Location: WOUND Re04/11/17 SEX: F Status: REG REF SPEC: [id number] [place]KE: 04/11/[address] [facility] [address]: Ashlee Arvizu MD REQ: [id number] RECD: 04/11/17 STATUS: TYLOR ESTRADA DR: Blanca [...] for recollect. * ML - MAIN LAB ([facility]) . END OF REPORT * ML=Testing performed at Main Lab DEPARTMENT OF PATHOLOGY, [address] [place] [address] Richard Browning M.D. Director [facility] # [id number] 12 LEFT MEDIAL FOOT ULCER 13 SEE RESULT BELOW Name: ASHIA HERRERA : [address]: Ashlee Arvizu MD Acct: [id number] Unit: [id number] AGE: 71 Location: WOUND Re03/03/17 SEX: F Status: REG REF SPEC: [id number] [place]: 03/03/[address] [facility] [address]: Blanca Castro NP REQ: [id number] RECD: 03/03/17 STATUS: TYLOR ESTRADA DR: Ashlee Adames MD _ SOURCE: FOOT,LEFT SPDESC: ORDERED: Culture Stain COMMENTS: LEFT MEDIAL FOOT ULCER QUERIES: Specimen Description RED SWAB Procedure Result Reported Site Wound/Misc Gram Stain Final 03/03/17- 1059 ML 1+ Epithelial Cells 3+ Neutrophils 1+ Gram Positive Bacilli Wound/Misc Culture Final 03/05/17- 828 ML Organism 1 NORMAL NNEKA Quantity 1+ * ML - MAIN LAB ([facility]) . END OF REPORT * ML=Testing performed at Main Lab DEPARTMENT OF PATHOLOGY, [address] [place] [address] Richard Browning M.D. Director [facility] # [id number] Procedures Date Code Description Status 11/02/2018 66913 Removal Of Prosthesis, Incl TKR Prosthesis,W Or W/O Completed Insert Spacer 11/02/2018 57758 Removal Of Prosthesis, Incl TKR Prosthesis,W Or W/O Completed Insert Spacer 11/02/2018 55884 Removal Of Prosthesis, Incl TKR Prosthesis,W Or W/O Completed Insert Spacer 11/02/2018 09147 Removal Of Prosthesis, Incl TKR Prosthesis,W Or W/O Completed Insert Spacer 11/02/2018 82514 Removal Of Prosthesis, Incl TKR Prosthesis,W Or W/O Completed Insert Spacer 11/01/2018 25558 ECHO Transthorasic Realtime 2D W Doppler & Color Flow Completed [facility] 10/31/2018 10916 Non-Segmental Instrumentation Posterior 1 Interspace Completed 10/31/2018 27454 Non-Segmental Instrumentation Posterior 1 Interspace Completed 10/31/2018 61179 Non-Segmental Instrumentation Posterior 1 Interspace Completed 10/31/2018 36073 Non-Segmental Instrumentation Posterior 1 Interspace Completed 10/31/2018 98819 Stereotactic Computer-Assisted, Spinal Completed 10/31/2018 44581 Stereotactic Computer-Assisted, Spinal Completed 10/31/2018 59384 Laminectomy;For Intraspinal Lesion/Lumbar Completed 10/31/2018 90226 Laminectomy;For Intraspinal Lesion/Lumbar Completed 10/31/2018 33932 Laminectomy;For Intraspinal Lesion/Lumbar Completed 10/31/2018 53997 Laminectomy;For Intraspinal Lesion/Lumbar Completed 10/31/2018 76644 Use Of Operating Microscope Completed 10/31/2018 13661 Use Of Operating Microscope Completed 08/17/2018 65084 THR Total Hip Replacement Completed 08/17/2018 30092 THR Total Hip Replacement Completed 02/13/2018 14044 Carpal Tunnel Release Completed 02/13/2018 92172 Carpal Tunnel Release Completed 02/13/2018 86117 Carpal Tunnel Release Completed 01/23/2018 43331 Carpal Tunnel Release Completed 01/23/2018 46776 Carpal Tunnel Release Completed 01/23/2018 43692 Carpal Tunnel Release Completed 10/26/201703889 Aspiration &/Or Inj Of Ganglion Cyst(S) Any Location Completed 10/26/2017 Aspiration &/Or Inj Of Ganglion Cyst(S) Any Location Completed 10/26/2017 Aspiration &/Or Inj Of Ganglion Cyst(S) Any Location Completed 10/24/2017 97423 Removal Devitalization Tissue Wound Less Than Equal 20 [address] Square CM 03/28/2017 49969 Removal Devitalization Tissue Wound Less Than Equal [address] CM 03/07/2017 28767 Removal Devitalized Tissue Wound Greater Than 20 Square Completed CM 03/07/2017 29624 Removal Devitalization Tissue Wound Less Than Equal [address] Square CM 03/03/2017 66983 Removal Devitalization Tissue Wound Less Than Equal [address] Square CM 10/06/2015 87855322 Mammogram Completed 09/25/2015 72195012 Mammogram Completed 11/17/2012 75313500 Mammogram Completed 11/14/2012 96733036 Mammogram Completed 03/08/2012 85798242 Mammogram Completed Encounters Type Date Location Provider Dx Diagnosis Office Visit 12/05/2018 [facility] Devin Astudillo T84.54xD Infect/inflm 10:10a Infectious Keith Uribe reaction due to Diseases internal left knee prosth, subs G06.1 Intraspinal abscess and granuloma B95.1 Streptococcus, group B, causing diseases classd elswhr Z79.2 prison (current) use of antibiotics Office Visit 12/01/2018 2:00p Orthopedic Alejandra A40.1 Sepsis due to Services Of Keith Castanon streptococcus, group [facility] B T84.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, subs S71.001A Unspecified open wound, right hip, initial encounter Z96.641 Presence of right artificial hip joint Z47.1 Aftercare following joint replacement surgery Office Visit 11/17/2018 [facility]opedic Nghia Garcia T84.54xA Infect/inflm 2:30p Services Of reaction due to [facility]. internal left knee prosth, init M25.551 Pain in right hip Office Visit 11/10/2018 [facility] A40.1 Sepsis due to 1:07p Assoc,davidson Goyal M.D. 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 subdural abscess, Hospitalists unspecified T84.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, subs D64.9 Anemia, unspecified I10 Essential (primary) hypertension E11.9 Type 2 diabetes mellitus without complications B85.2 Pediculosis, unspecified [facility]inal Infectious Keith Uribe abscess and Diseases granuloma T84.54xA Infect/inflm reaction due to internal left knee prosth, init E11.9 Type 2 diabetes mellitus without complications R19.7 Diarrhea, unspecified Office Visit 11/08/2018 1:07p [facility] G06.2 Extradural and Assoc,davidson Goyal M.D. subdural abscess, Hospitalists unspecified T84.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, subs D64.9 Anemia, unspecified I10 Essential (primary) hypertension E11.9 Type 2 diabetes mellitus without complications B85.2 Pediculosis, unspecified Office 11/07/2018 [facility] T84.54xD Infect/inflm Visit 1:07p davidson De Guzman M.D. 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 internal left knee prosth, init Office Visit 11/01/2018 [facility] Devin Astudillo G06.1 Intraspinal 12:31p For Infectious Keith Uribe abscess and Diseases granuloma M25.562 Pain in left knee Z96.652 Presence of left artificial knee joint R78.81 Bacteremia B95.1 Streptococcus, group B, causing diseases classd elswhr Office Visit 11/01/2018 1:05p [facility] G06.2 Extradural and Assoc,pc Shortle, BASTER HAND subdural abscess, Hospitalists unspecified M43.26 Fusion of spine, lumbar region N17.9 Acute kidney failure, unspecified I10 Essential (primary) hypertension E11.9 Type 2 diabetes mellitus without complications B85.2 Pediculosis, unspecified K59.00 Constipation, unspecified Office Visit 11/01/2018 Orthopedic Luly T84.54xA Infect/inflm 10:09a Services Of JOVANNI Santos reaction due to internal left knee prosth, init Office Visit 10/31/2018 [facility] G06.2 Extradural and 1:04p Assoc,pc Shortle, BASTER HAND subdural abscess, Hospitalists unspecified N17.9 Acute kidney failure, unspecified I10 Essential (primary) hypertension E87.1 Hypo-osmolality and hyponatremia E11.9 Type 2 diabetes mellitus without complications M53.2x6 Spinal instabilities, lumbar region K59.00 Constipation, unspecified Office Visit 10/30/2018 1:04p [facility] G06.2 Extradural and Assoc,pc Campos D.O. subdural abscess, Hospitalists unspecified E87.1 Hypo-osmolality and hyponatremia N17.9 Acute kidney failure, unspecified E11.9 Type 2 diabetes mellitus without complications D64.9 Anemia, unspecified Office Visit 10/30/2018 12:13p [facility] Devin Astudillo G06.1 Intraspinal Infectious Keith Uribe abscess and Diseases granuloma G95.29 Other cord compression R78.81 Bacteremia Z96.641 Presence of right artificial hip joint E11.9 Type 2 diabetes mellitus without complications Office Visit 10/30/2018 [facility] Vassilios G06.1 Intraspinal 7:00a Services Of Allen Freeman MD abscess and granuloma M53.2x6 Spinal instabilities, lumbar region [facility]2018 [facility] Z[facility].1 Aftercare Assoc,pc N.P. following joint Hospitalists replacement surgery Z96.641 Presence of right artificial hip joint E87.1 Hypo-osmolality and hyponatremia N17.9 Acute kidney failure, unspecified I10 Essential (primary) hypertension E11.9 Type 2 diabetes mellitus without complications Office Visit 08/20/2018 11:30a [facility] Daly, Z47.1 Aftercare Assoc,pc N.P. following joint Hospitalists replacement surgery Z96.641 Presence of right artificial hip joint E87.1 Hypo-osmolality and hyponatremia N17.9 Acute kidney failure, unspecified I10 Essential (primary) hypertension E11.9 Type 2 diabetes mellitus without complications Office Visit 08/19/2018 [facility] Crystal Z47.1 Aftercare 11:29a Assoc,davidson Mathis NP following joint Hospitalists replacement surgery Z96.641 Presence of right artificial hip joint E87.1 Hypo-osmolality and hyponatremia I10 Essential (primary) hypertension E11.9 Type 2 diabetes mellitus without complications N17.9 Acute kidney failure, unspecified Office Visit 08/18/2018 [facility] Crystal Z96.641 Presence of 11:23a Assoc,davidson Mathis NP right artificial Hospitalists hip joint Z47.1 Aftercare following joint replacement surgery I10 Essential (primary) hypertension E11.9 Type 2 diabetes mellitus without complications E87.1 Hypo-osmolality and hyponatremia N17.9 Acute kidney failure, unspecified Office Visit 08/17/2018 11:07a [facility] Frantz Rebollar, E11.9 Type 2 [...] Amina Diaz E11.621 Type 2 diabetes AT [facility] MD Juanito mellitus with foot ulcer L97.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 L97.822 Non-prs chronic ulcer oth prt l low leg w fat layer exposed I87.313 Chronic venous hypertension w ulcer of bilateral low extrm I10 Essential (primary) hypertension Office Visit 04/27/2017 1:00p Wound Care Amina Diaz E11.621 Type 2 diabetes Center AT [facility] MD Juanito mellitus with foot ulcer L97.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 L97.822 Non-prs chronic ulcer oth prt l low leg w fat layer exposed I87.313 Chronic venous hypertension w ulcer of bilateral low extrm I10 Essential (primary) hypertension Office Visit 03/07/2017 12:10p Wound Care Blanca Castro E11.621 Type 2 diabetes Center AT [facility] JOHN GORDON, AMBER-LJ mellitus with foot ulcer L97.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 L97.822 Non-prs chronic ulcer oth prt l low leg w fat layer exposed R60.0 Localized edema M79.662 Pain in left lower leg I87.2 Venous insufficiency (chronic) (peripheral) Office Visit 03/03/2017 10:55a Wound Care Blanca Castro E11.621 Type 2 diabetes Center AT [facility] JOHN GORDON, AMBER-LJ mellitus with foot ulcer L97.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 L97.822 Non-prs chronic ulcer oth prt l low leg w fat layer exposed R60.0 Localized edema M79.662 Pain in left lower leg Office Visit 06/30/2016 9:28a [facility] Devin Astudillo L03.116 Cellulitis of For Infectious Keith Uribe left lower limb Diseases Z96.652 Presence of left artificial knee joint Office Visit 06/30/2016 [facility] Alysha Boo, L03.116 Cellulitis of 2:18p Assoc,davidson Parker left lower limb Hospitalists E11.621 Type 2 diabetes mellitus with foot ulcer R65.20 Severe sepsis without septic shock Office Visit 06/29/2016 9:16a [facility] Devin Astudillo L03.116 Cellulitis of For Infectious Keith Uribe left lower limb Diseases Z96.652 Presence of left artificial knee joint I87.2 Venous insufficiency (chronic) (peripheral) E11.40 Type 2 diabetes mellitus with diabetic neuropathy, unsp Office Visit 06/28/2016 [facility] L03.116 Cellulitis of 2:16p Assoc,pc Sonia, BASTER HAND left lower limb Hospitalists 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 at [facility]/22/2018 1:45 pm - Alejandra Castanon M.D. at [facility]12/27/2018 10:50 am - Devin Uribe M.D. at [facility] For [facility]ious Smydixdv64/16/2019 - Estephania Freeman MDG06.1 Intraspinal abscess and granulomaNew Xrays:SP Lumbarsacral 4+ VWS, Ordered: Follow up:RV in 2 weeks for wound check.
--- OUTSIDE RECORDS SUMMARY | 2018-12-13 15:27 | XMS REPORT | Continuity of Care Document ---
:1945 External Reference #:[id number] Author Name HarshalNolberto richardson Care Team Providers Name Role Phone Odalys Adames MD Primary Care Physician Unavailable Payers Type Date Identification Numbers Payment Provider Subscriber Policy Number: [id number] [employer] Ashia Herrera PayID: [id number] [address] [address] Expires: 2018 Policy Number: [id number] [facility] Ppo Ashia Herrera Group Number: [id number] [address] PayID: [id number] [address] Effective: 2017 Policy Number: [id number] [employer] Ashia Herrera Onset: 2017 Group Name: Sheron [phone] [address] PayID: [id number] [place] [address] Advance Directives Description No Information Available Problems [...] 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 09/24 as needed /2017 for post-op pain. max 10 per day Aspirin 81 Low 00 Hx 1 by mouth Unknown Dose /0000 every day - 08/06 Coral Calcium Hx Capsules 1500mg 2 tabs Unknown /0000 daily - 08/05 Vitamin D3 Hx Capsules 5000Unit 1 by mouth Unknown /0000 every day - 08/06 Vitamin C 00 Hx 1 tab by Unknown /0000 mouth once - a day 08/06 Potassium Hx Tablets 99mg once a day Unknown /0000 - 08/06 Tramadol HCL 00 Hx Tablets 50mg 1-2 tablets Unknown /0000 every 6 - hours as 09/24 Ibuprofen 00 Hx Tablets 200mg as needed Unknown / - 08/06 Immunizations Description No Information Available Vital Signs Date Vital Result Comment 12/01/2018 11:49am Height 68 inches 5'8" Weight [...] H/L Range Note CBC Auto Diff 11/13/2018 [facility] White Blood 7.0 10^3/uL N 3.5-10.[address] [place] [address] [phone] Red Blood Count 3.41 10^6/uL Low 4.00-5.40 [...] Cells % 0.1 Comp Metabolic Panel 11/13/2018 [facility] Sodium 131 mmol/L Low 135-145 [address] [place] [address] [phone] Potassium 4.8 mmol/L N 3.5-5.0 Chloride 94 [...] Egfr 117.0 >60 2 Laboratory test 11/13/2018 [facility] C Reactive 58.17 mg/L High <8.[address] [place] [address] [phone] Urinalysis 08/07/2018 [facility] Urine Color Straw Profile [address] [place] [address] [phone] Urine Appearance Clear Urine Specific Libby 1.005 Low 1.010-1.030 Urine pH 7.0 N [...] Epithelial Cell Present Abnormal Absent Inr/Protime 08/07/2018 [facility] Inr 0.87 N 0.77-1.[address] [place] [address] [phone] Laboratory test 08/07/2018 [facility] Partial 30.1 seconds N 26.0-36.[address] [address] PTT [phone] Type & Screen 08/07/2018 [facility] Patient A Positive [address] [place] [address] [phone] Antibody Screen NEGATIVE Urine Culture And 08/07/2018 [facility] Urine Culture SEE RESULT [address] [place] [address] [phone] Laboratory test 02/13/2018 [facility] Point of Care 134 mg/dL High 70-1 [address] Glucose 00 [place] [address] [phone] Laboratory test 01/23/2018 [facility] Point of Care 133 mg/dL High 70-1 [address] Glucose 00 [place] [address] [phone] Laboratory test 10/24/2017 [facility] Surgical SEE RESULT [address] [place] [address] [phone] Wound 04/11/2017 [facility] Wound/Misc SEE RESULT 8 Culture/Sensi [address] [place] [address] Stain [phone] Wound 03/03/2017 [facility] Wound/Misc SEE RESULT 9, 10 Culture/Sensi [address] [place] [address] Stain [phone] 1 [facility] - Floor: 1, #: [id number] 2 Because ethnic data is not always [...] Kidney failure <15 (or dialysis) 3 [facility] - Floor: 1, Rm #: [id number] 4 SEE RESULT BELOW Name: ASHIA HERRERA : [address]: Alejandra Castanon MD Acct: [id number] Unit: [id number] AGE: 73 Location: [facility] Re08/07/18 SEX: F Status: REG REF SPEC: [id number] LUKE: 08/07/18-[address]: Alejandra Castanon MD REQ: [id number] RECD: 08/07/18 STATUS: COMP _ SOURCE: URINE SPDESC: ORDERED: Urine Culture QUERIES: Urine Source: Clean Catch Procedure Result Reported Site Urine Culture Final 08/08/18- 1246 ML No growth of clinically significant organisms * ML - Main Lab . END OF REPORT DEPARTMENT OF PATHOLOGY, [address] [place] [address] Richard Browning M.D. Director [facility] # [id number] 5 Video Journalist: [id number] Video Journalist: [id number] 7 SEE RESULT BELOW Name: ASHIA HERRERA : [address]: Amina Solomon MD Acct: [id number] Unit: [id number] AGE: 72 Location: WOUND Re10/24/17 SEX: F Status: REG REF SPEC: [id number] LUKE: 10/24/[address] [facility] DR: Amina Solomon MD REQ: [id number] RECD: 10/24/17 STATUS: JUAN ESTRADA DR: Ashlee [...] performed at Main Lab DEPARTMENT OF PATHOLOGY, [address] [place] [address] Richard Browning M.D. Director [facility] # [id number] 8 SEE RESULT BELOW Name: ASHIA HERRERA : [address]: Ashlee Arvizu MD Acct: [id number] Unit: [id number] AGE: 71 Location: WOUND Re04/11/17 SEX: F Status: REG REF SPEC: [id number] LUKE: 04/11/[address] [facility] DR: Ashlee Arvizu MD REQ: [id number] RECD: 04/11/17 STATUS: TYLOR ESTRADA DR: Blanca Castro PLANNING TECHNICIAN Odalys Adames MD _ SOURCE: FOOT,LEFT SPDESC: [...] for recollect. * ML - MAIN LAB ([facility]) . END OF REPORT * ML=Testing performed at Main Lab DEPARTMENT OF PATHOLOGY, [address] [place] [address] Richard Browning M.D. Director [facility] # [id number] 9 LEFT MEDIAL FOOT ULCER 10 SEE RESULT BELOW Name: ASHIA HERRERA : [address]: Ashlee Arvizu MD Acct: [id number] Unit: [id number] AGE: 71 Location: WOUND Re03/03/17 SEX: F Status: REG REF SPEC: [id number] LUKE: 03/03/[address] [facility] DR: Blanca Castro NP REQ: [id number] RECD: 03/03/17 STATUS: TYLOR ESTRADA DR: Ashlee Adames MD _ SOURCE: FOOT,LEFT SPDESC: ORDERED: Culture Stain COMMENTS: LEFT MEDIAL FOOT ULCER QUERIES: Specimen Description RED SWAB Procedure Result Reported Site Wound/Misc Gram Stain Final 03/03/17- 1059 ML 1+ Epithelial Cells 3+ Neutrophils 1+ Gram Positive Bacilli Wound/Misc Culture Final 03/05/17- 0829 ML Organism 1 NORMAL NNEKA Quantity 1+ * ML - MAIN LAB ([facility]) . END OF REPORT * ML=Testing performed at Main Lab DEPARTMENT OF PATHOLOGY, [address] [place] [address] Richard Browning M.D. Director [facility] # [id number] Procedures Date Code Description Status 11/02/2018 27355 Removal Of Prosthesis, Incl TKR Prosthesis,W Or W/O Completed Insert Spacer 11/02/2018 19828 Removal Of Prosthesis, Incl TKR Prosthesis,W Or W/O Completed Insert Spacer 11/02/2018 98655 Removal Of Prosthesis, Incl TKR Prosthesis,W Or W/O Completed Insert Spacer 11/02/2018 50735 Removal Of Prosthesis, Incl TKR Prosthesis,W Or W/O Completed Insert Spacer 11/02/2018 17673 Removal Of Prosthesis, Incl TKR Prosthesis,W Or W/O Completed Insert Spacer 11/01/2018 46387 ECHO Transthorasic Realtime 2D W Doppler & Color Flow Completed Hosp 10/31/2018 26671 Non-Segmental Instrumentation Posterior 1 Interspace Completed 10/31/2018 98849 Non-Segmental Instrumentation Posterior 1 Interspace Completed 10/31/2018 35026 Non-Segmental Instrumentation Posterior 1 Interspace Completed 10/31/2018 71097 Non-Segmental Instrumentation Posterior 1 Interspace Completed 10/31/2018 74740 Stereotactic Computer-Assisted, Spinal Completed 10/31/2018 87021 Stereotactic Computer-Assisted, Spinal Completed 10/31/2018 74096 Laminectomy;For Intraspinal Lesion/Lumbar Completed 10/31/2018 19724 Laminectomy;For Intraspinal Lesion/Lumbar Completed 10/31/2018 01742 Laminectomy;For Intraspinal Lesion/Lumbar Completed 10/31/2018 20942 Laminectomy;For Intraspinal Lesion/Lumbar Completed 10/31/2018 28873 Use Of Operating Microscope Completed 10/31/2018 77594 Use Of Operating Microscope Completed 08/17/2018 23755 THR Total Hip Replacement Completed 08/17/2018 38774 THR Total Hip Replacement Completed 02/13/2018 83181 Carpal Tunnel Release Completed 02/13/2018 40009 Carpal Tunnel Release Completed 02/13/2018 72727 Carpal Tunnel Release Completed 01/23/2018 24092 Carpal Tunnel Release Completed 01/23/2018 29531 Carpal Tunnel Release Completed 01/23/2018 06792 Carpal Tunnel Release Completed 10/26/2017 Aspiration &/Or Inj Of Ganglion Cyst(S) Any Location Completed 10/26/2017 Aspiration &/Or Inj Of Ganglion Cyst(S) Any Location Completed 10/26/2017 Aspiration &/Or Inj Of Ganglion Cyst(S) Any Location Completed 10/24/2017 28910 Removal Devitalization Tissue Wound Less Than Equal 20 [address]pleted Square CM 03/28/2017 87300 Removal Devitalization Tissue Wound Less Than Equal [address] CM 03/07/2017 75393 Removal Devitalized Tissue Wound Greater Than 20 Square Completed CM 03/07/2017 08464 Removal Devitalization Tissue Wound Less Than Equal [address] Square CM 03/03/2017 56255 Removal Devitalization Tissue Wound Less Than Equal 20 [address] Square CM 10/06/2015 [id number] Mammogram Completed 09/25/2015 99732422 Mammogram Completed 11/17/2012 95373161 Mammogram Completed 11/14/2012 18931554 Mammogram Completed 03/08/2012 53898771 Mammogram Completed Encounters Type Date Location Provider Dx Diagnosis Office Visit 11/10/2018 [facility] Diya Goyal, A40.1 Sepsis due to 1:07p Assoc,davidson Parker streptococcus, Hospitalists group B 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 subdural abscess, Hospitalists unspecified T84.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, subs D64.9 Anemia, unspecified I10 Essential (primary) hypertension E11.9 Type 2 diabetes mellitus without complications B85.2 Pediculosis, unspecified Office Visit 11/08/2018 1:34p [place] Aleksander Astudillo G06.1 Intraspinal Infectious Keith Uribe abscess and Diseases granuloma T84.54xA Infect/inflm reaction due to internal left knee prosth, init E11.9 Type 2 diabetes mellitus without complications R19.7 Diarrhea, unspecified Office Visit 11/08/2018 1:07p [facility] G06.2 Extradural and Assoc,pc Jyotsna, M.D. subdural abscess, Hospitalists unspecified T84.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, subs D64.9 Anemia, unspecified I10 Essential (primary) hypertension E11.9 Type 2 diabetes mellitus without complications B85.2 Pediculosis, unspecified Office 11/07/2018 [facility] T84.54xD Infect/inflm Visit 1:07p davidson De Guzman M.D. 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, unspecified N17.9 Acute kidney failure, unspecified I10 Essential (primary) hypertension K59.00 Constipation, unspecified B85.2 Pediculosis, unspecified Office Visit 11/03/2018 [facility] T84.54xA Infect/inflm 1:05p Assoc,pc Fantasma Gasca reaction due to Hospitalists internal left knee [...] left knee prosth, init Office Visit 11/01/2018 [facility] G06.2 Extradural and 1:05p Assoc,pc Shortle, PLANNING TECHNICIAN subdural abscess, Hospitalists unspecified M43.26 Fusion of spine, lumbar region N17.9 Acute kidney failure, unspecified I10 Essential (primary) hypertension E11.9 Type 2 diabetes mellitus without complications B85.2 Pediculosis, unspecified K59.00 Constipation, unspecified Office Visit 11/01/2018 12:31p [facility] Keanu Astudillo G06.1 Intraspinal Infectious Keith Uribe abscess and Diseases granuloma M25.562 Pain in left knee Z96.652 Presence of left artificial knee joint R78.81 Bacteremia B95.1 Streptococcus, group B, causing diseases classd elswhr Office Visit 11/01/2018 [facility] Nghia Garcia, T84.54xA Infect/inflm 3:20p Services Of reaction due to Porsha internal left knee prosth, init Office Visit 10/31/2018 [facility] G06.2 Extradural and 1:04p Assoc,pc Shortle, PLANNING TECHNICIAN subdural abscess, Hospitalists unspecified N17.9 Acute kidney failure, unspecified I10 Essential (primary) hypertension E87.1 Hypo-osmolality and hyponatremia E11.9 Type 2 diabetes mellitus without complications M53.2x6 Spinal instabilities, lumbar region K59.00 Constipation, unspecified Office Visit 10/30/2018 [facility] G06.1 Intraspinal 7:00a Services Of Allen Freeman MD abscess and granuloma M53.2x6 Spinal instabilities, lumbar region Office Visit 10/30/2018 12:13p [facility] Devin Astudillo G06.1 Intraspinal Infectious Keith Uribe abscess and Diseases granuloma G95.29 Other cord compression R78.81 Bacteremia Z96.641 Presence of right artificial hip joint E11.9 Type 2 diabetes mellitus without complications Office [facility] Extradural and Assoc,davidson Gasca D.O. subdural abscess, Hospitalists unspecified E87.1 Hypo-osmolality and hyponatremia N17.9 Acute kidney failure, unspecified E11.9 Type 2 diabetes mellitus without complications D64.9 Anemia, unspecified Office Visit 08/21/2018 11:30a [facility] Yolanda Addy, Z47.1 Aftercare Assoc,pc N.P. following joint Hospitalists replacement surgery Z96.641 Presence of right artificial hip joint E87.1 Hypo-osmolality and hyponatremia N17.9 Acute kidney failure, unspecified I10 Essential (primary) hypertension E11.9 Type 2 diabetes mellitus without complications Office Visit 08/20/2018 11:30a [facility] Yolanda Daly, Z47.1 Aftercare Assoc,pc N.P. following joint Hospitalists replacement surgery Z96.641 Presence of right artificial hip joint E87.1 Hypo-osmolality and hyponatremia N17.9 Acute kidney failure, unspecified I10 Essential (primary) hypertension E11.9 Type 2 diabetes mellitus without complications Office Visit 08/19/2018 [facility] Crystal Z47.1 Aftercare 11:29a Assoc,davidson Mathis NP following joint Hospitalists replacement surgery Z96.641 Presence of right artificial hip joint E87.1 Hypo-osmolality and hyponatremia I10 Essential (primary) hypertension E11.9 Type 2 diabetes mellitus without complications N17.9 Acute kidney failure, unspecified Office Visit 08/18/2018 [facility] Z96.641 Presence of 11:23a Assoc,davidson Mathis NP right artificial Hospitalists hip joint Z47.1 Aftercare following joint replacement surgery I10 Essential (primary) hypertension E11.9 Type 2 diabetes mellitus without complications E87.1 Hypo-osmolality and hyponatremia N17.9 Acute kidney failure, unspecified Office Visit 08/17/2018 11:07a [facility] Frantz Rebollar, E11.9 Type 2 diabetes davidson [...] Amina Diaz E11.621 Type 2 diabetes AT [facility] MD Juanito mellitus with foot ulcer L97.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 L97.822 Non-prs chronic ulcer oth prt l low leg w fat layer exposed I87.313 Chronic venous hypertension w ulcer of bilateral low extrm I10 Essential (primary) hypertension Office Visit 04/27/2017 1:00p Wound Care Amina Diaz E11.621 Type 2 diabetes Center AT [facility] MD Juanito mellitus with foot ulcer L97.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 L97.822 Non-prs chronic ulcer oth prt l low leg w fat layer exposed I87.313 Chronic venous hypertension w ulcer of bilateral low extrm I10 Essential (primary) hypertension Office Visit 03/07/2017 12:10p Wound Care Blanca Castro, E11.621 Type 2 diabetes Center AT [facility] HEIDI RN, ALARM TECHNICIAN-BC mellitus with foot ulcer L97.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 L97.822 Non-prs chronic ulcer oth prt l low leg w fat layer exposed R60.0 Localized edema M79.662 Pain in left lower leg I87.2 Venous insufficiency (chronic) (peripheral) Office Visit 03/03/2017 10:55a Wound Care Blanca Castro, E11.621 Type 2 diabetes Center AT [facility] JOHN GORDON, ALARM TECHNICIAN-BC mellitus with foot ulcer L97.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 L97.822 Non-prs chronic ulcer oth prt l low leg w fat layer exposed R60.0 Localized edema M79.662 Pain in left lower leg Office Visit 06/30/2016 9:28a [facility] Devin Astudillo L03.116 Cellulitis of For Halle Uribe M.D. left lower limb Diseases Z96.652 Presence of left artificial knee joint Office Visit 06/30/2016 [facility] Alysha Boo, L03.116 Cellulitis of 2:18p davidson De Guzman M.D. left lower limb Hospitalists E11.621 Type 2 diabetes mellitus with foot ulcer R65.20 Severe sepsis without septic shock Office Visit 06/29/2016 9:16a [facility] Devin Astudillo L03.116 Cellulitis of For Halle Uribe M.D. 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 at [facility]04/04/2019 - Alejandra Castanon M.D.A40.1 Sepsis due to streptococcus, group BT84.54xA Infection and inflammatory reaction due to internal left kneS71.001D Unspecified open wound, right hip, subsequent encounterNew Xrays:MRI Hip Right W/O, Ordered: 12/01/18Follow up: Follow up: after testing is completed - r hip mriZ96.641 Presence of right artificial hip foptvX18.1 Aftercare following joint replacement surgery
--- OUTSIDE RECORDS SUMMARY | 2018-12-13 15:27 | XMS REPORT | Continuity of Care Document ---
:1945 External Reference #:[id number] Author Name Areli Orozco Care Team Providers Name Role Phone Odalys Adames MD Primary Care Physician Unavailable Payers Type Date Identification Numbers Payment Provider Subscriber Policy Number: [id number] [employer] Ashia Herrera PayID: [id number] [address] [address] BRAULIO Nava [address] Expires: 2018 Policy Number: [id number] [facility] Ashia Herrera Group Number: [id number] [address] PayID: [id number] BRAULIO Garcia [address] Effective: 2017 Policy Number: [id number] [employer] Ashia Herrera Onset: 2017 Group Name: Sheron [phone] [address] PayID: [id number] [address] Advance Directives Description No Information Available Problems [...] 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8 mmol/L N 3.5-5.0 Chloride 94 [...] Egfr 117.0 >60 2 Laboratory test 11/13/2018 [facility] C Reactive 58.17 mg/L High <8.01 [address] Protein [place], [place] [address] [phone] Urinalysis 08/07/2018 [facility] Urine Color Straw Profile [address] [place] [address] [phone] Urine Appearance Clear Urine Specific [place] 1.005 Low 1.010-1.030 Urine pH 7.0 N [...] Epithelial Cell Present Abnormal Absent Inr/Protime 08/07/2018 [facility] Inr 0.87 N 0.77-1.[address] [place] [address] [phone] Laboratory test 08/07/2018 [facility] Partial 30.1 seconds N 26.0-36.[address] [place] [address] PTT [phone] Type & Screen 08/07/2018 [facility] Patient A Positive [address] [place] [address] [phone] Antibody Screen NEGATIVE Urine Culture And 08/07/2018 [facility] Urine Culture SEE RESULT [address] [place] [address] [phone] Laboratory test 02/13/2018 [facility] Point of Care 134 mg/dL High 70-1 [address] Glucose 00 [place], [place] [address] [phone] Laboratory test 01/23/2018 [facility] Point of Care 133 mg/dL High 70-1 [address] Glucose 00 [place] [address] [phone] Laboratory test 10/24/2017 [facility] Surgical SEE RESULT [address] Pathology BELOW [place], [place] [address] [phone] Wound 04/11/2017 [facility] Wound/Misc SEE RESULT 8 Culture/Sensi [address] [place] [address] Stain [phone] Wound 03/03/2017 [facility] Wound/Misc SEE RESULT 9, 10 Culture/Sensi [address] [place] [address] Stain [phone] 1 [facility] - Floor: 1, Rm #: [id number] 2 Because ethnic data is not always [...] 5 Kidney failure <15 (or dialysis) 3 [facility] - Floor: 1, Rm #: [id number] 4 SEE RESULT BELOW Name: ASHIA HERRERA : [address]: Alejandra Castanon MD Acct: [id number] Unit: [id number] AGE: 73 Location: [facility] Re08/07/18 SEX: F Status: REG REF SPEC: [id number] LUKE: 08/07/18-1150 [facility] DR: Alejandra Castanon MD REQ: [id number] RECD: 08/07/18 STATUS: COMP _ SOURCE: URINE SPDESC: ORDERED: Urine Culture QUERIES: Urine Source: Clean Catch Procedure Result Reported Site Urine Culture Final 08/08/18- 1246 ML No growth of clinically significant organisms * ML - Main Lab . END OF REPORT DEPARTMENT OF PATHOLOGY, [address] [place] [address] Richard Browning M.D. Director JAYDEN # [id number] 5 Chain Maker: [id number] 6 Chain Maker: [id number] 7 SEE RESULT BELOW Name: ASHIA HERRERA : [address]: Amina Solomon MD Acct: [id number] Unit: [id number] AGE: 72 Location: WOUND Re10/24/17 SEX: F Status: REG REF SPEC: [id number] LUKE: 10/24/17 [facility] DR: Amina Solomon MD REQ: [id number] RECD: 10/24/17 STATUS: JUAN ESTRADA DR: Ashlee [...] performed at Main Lab DEPARTMENT OF PATHOLOGY, [address] [place] [address] Richard Browning M.D. Director JAYDEN # [id number] 8 SEE RESULT BELOW Name: ASHIA HERRERA : [address]: Ashlee Arvizu MD Acct: [id number] Unit: [id number] AGE: 71 Location: WOUND Re04/11/17 SEX: F Status: REG REF SPEC: [id number] LUKE: 04/11/17 [facility] DR: Ashlee Arvizu MD REQ: [id number] RECD: 04/11/17 STATUS: TYLOR ESTRADA DR: Blanca Castro AR[employer] TRIMMER Odalys Adames MD _ SOURCE: FOOT,LEFT SPDESC: [...] performed at Main Lab DEPARTMENT OF PATHOLOGY, [address] [place] [address] Richard Browning M.D. Director [facility] # [id number] 9 LEFT MEDIAL FOOT ULCER 10 SEE RESULT BELOW Name: ASHIA HERRERA : [address]: Ashlee Arvizu MD Acct: [id number] Unit: [id number] AGE: 71 Location: WOUND Re03/03/17 SEX: F Status: REG REF SPEC: [id number] LUKE: 03/03/17 [facility] DR: Blanca Castro NP REQ: [id number] RECD: 03/03/17 STATUS: TYLOR ESRTADA DR: Ashlee Adames MD _ SOURCE: FOOT,LEFT [...] performed at Main Lab DEPARTMENT OF PATHOLOGY, [address] [place] [address] Richard Browning M.D. Director [facility] # [id number] Procedures Date Code Description Status 11/02/2018 43617 Removal Of Prosthesis, Incl TKR Prosthesis,W Or W/O Completed Insert Spacer 11/02/2018 66182 Removal Of Prosthesis, Incl TKR Prosthesis,W Or W/O Completed Insert Spacer 11/02/2018 76834 Removal Of Prosthesis, Incl TKR Prosthesis,W Or W/O Completed Insert Spacer 11/02/2018 49387 Removal Of Prosthesis, Incl TKR Prosthesis,W Or W/O Completed Insert Spacer 11/02/2018 55882 Removal Of Prosthesis, Incl TKR Prosthesis,W Or W/O Completed Insert Spacer 11/01/2018 59126 ECHO Transthorasic Realtime 2D W Doppler & Color Flow Completed [facility] 10/31/2018 85759 Non-Segmental Instrumentation Posterior 1 Interspace Completed 10/31/2018 60532 Non-Segmental Instrumentation Posterior 1 Interspace Completed 10/31/2018 01293 Non-Segmental Instrumentation Posterior 1 Interspace Completed 10/31/2018 57070 Non-Segmental Instrumentation Posterior 1 Interspace Completed 10/31/2018 54577 Stereotactic Computer-Assisted, Spinal Completed 10/31/2018 06809 Stereotactic Computer-Assisted, Spinal Completed 10/31/2018 56131 Laminectomy;For Intraspinal Lesion/Lumbar Completed 10/31/2018 78568 Laminectomy;For Intraspinal Lesion/Lumbar Completed 10/31/2018 86007 Laminectomy;For Intraspinal Lesion/Lumbar Completed 10/31/2018 30784 Laminectomy;For Intraspinal Lesion/Lumbar Completed 10/31/2018 86638 Use Of Operating Microscope Completed 10/31/2018 40317 Use Of Operating Microscope Completed 08/17/2018 21846 THR Total Hip Replacement Completed 08/17/201822313 THR Total Hip Replacement Completed 02/13/2018 99266 Carpal Tunnel Release Completed 02/13/2018 28829 Carpal Tunnel Release Completed 02/13/2018 41120 Carpal Tunnel Release Completed 01/23/2018 12078 Carpal Tunnel Release Completed 01/23/2018 67336 Carpal Tunnel Release Completed 01/23/2018 28165 Carpal Tunnel Release Completed 10/26/201762734 Aspiration &/Or Inj Of Ganglion Cyst(S) Any Location Completed 10/26/2017 Aspiration &/Or Inj Of Ganglion Cyst(S) Any Location Completed 10/26/2017 Aspiration &/Or Inj Of Ganglion Cyst(S) Any Location Completed 10/24/2017 82981 Removal Devitalization Tissue Wound Less Than Equal 20 [address] [facility] 03/28/2017 11042 Removal Devitalization Tissue Wound Less Than Equal [address] [facility] CM 03/07/2017 20531 Removal Devitalized Tissue Wound Greater Than 20 Square Completed CM 03/07/2017 77707 Removal Devitalization Tissue Wound Less Than Equal [address] CM 03/03/2017 69126 Removal Devitalization Tissue Wound Less Than Equal [address] CM 10/06/2015 55819528 Mammogram Completed 09/25/2015 73652999 Mammogram Completed 11/17/2012 53600037 Mammogram Completed 11/14/2012 67584637 Mammogram Completed 03/08/2012 26882272 Mammogram Completed Encounters Type Date Location Provider Dx Diagnosis [facility]1 Sepsis due to 1:07p Assocdavidson M.D. 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 subdural abscess, Hospitalists unspecified T84.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, subs D64.9 Anemia, unspecified I10 Essential (primary) hypertension E11.9 Type 2 diabetes mellitus without complications B85.2 Pediculosis, unspecified Office Visit 11/08/2018 1:34p [facility] Aleksander Astudillo G06.1 Intraspinal Infectious Keith Uribe abscess and Diseases granuloma T84.54xA Infect/inflm reaction due to internal left knee prosth, init E11.9 Type 2 diabetes mellitus without complications R19.7 Diarrhea, unspecified Office Visit 11/08/2018 1:07p [facility] Diya G06.2 Extradural and davidson De Guzman M.D. subdural abscess, Hospitalists unspecified T84.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, subs D64.9 Anemia, unspecified I10 Essential (primary) hypertension E11.9 Type 2 diabetes mellitus without complications B85.2 Pediculosis, unspecified Office 11/07/2018 [facility] T84.54xD Infect/inflm Visit 1:07p davidson De Guzman M.D. 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 reaction [...] left knee prosth, init Office Visit 11/01/2018 [facility] G06.2 Extradural and 1:05p Assoc,davidson Aguillon, AR[employer] TRIMMER subdural abscess, Hospitalists unspecified M43.26 Fusion of spine, lumbar region N17.9 Acute kidney failure, unspecified I10 Essential (primary) hypertension E11.9 Type 2 diabetes mellitus without complications B85.2 Pediculosis, unspecified K59.00 Constipation, unspecified Office Visit 11/01/2018 12:31p [facility] Keanu Astudillo G06.1 Intraspinal Infectious Keith Uribe abscess and Diseases granuloma M25.562 Pain in left knee Z96.652 Presence of left artificial knee joint R78.81 Bacteremia B95.1 Streptococcus, group B, causing diseases classd elswhr Office Visit 11/01/2018 Orth[facility] Nghia Garcia T84.54xA Infect/inflm 3:20p Services Of reaction due to Porsha internal left knee prosth, init Office Visit 10/31/2018 [facility] G06.2 Extradural and 1:04p Assoc,davidson Aguillon NP subdural abscess, Hospitalists unspecified N17.9 Acute kidney failure, unspecified I10 Essential (primary) hypertension E87.1 Hypo-osmolality and hyponatremia E11.9 Type 2 diabetes mellitus without complications M53.2x6 Spinal instabilities, lumbar region K59.00 Constipation, unspecified Office Visit 10/30/2018 [facility] G06.1 Intraspinal 7:00a Services Of Allen Freeman MD abscess and granuloma M53.2x6 Spinal instabilities, lumbar region Office Visit 10/30/2018 12:13p [facility] Devin Astudillo G06.1 Intraspinal Infectious Alan Uribe. abscess and Diseases granuloma G95.29 Other cord compression R78.81 Bacteremia Z96.641 Presence of right artificial hip joint E11.9 Type 2 diabetes mellitus without complications Office Visit 10/30/2018 1:04p [facility] Isa G06.2 Extradural and Assoc,pc Fantasma Gasca subdural abscess, Hospitalists unspecified E87.1 Hypo-osmolality and hyponatremia N17.9 Acute kidney failure, unspecified E11.9 Type 2 diabetes mellitus without complications D64.9 Anemia, unspecified Office Visit 08/21/2018 11:30a [facility] Yolanda Addy, Z47.1 Aftercare Assoc,pc N.P. following joint Hospitalists replacement surgery Z96.641 Presence of right artificial hip joint E87.1 Hypo-osmolality and hyponatremia N17.9 Acute kidney failure, unspecified I10 Essential (primary) hypertension E11.9 Type 2 diabetes mellitus without complications Office Visit 08/20/2018 11:30a [facility] Yolanda Addy, Z47.1 Aftercare Assoc,pc N.P. following joint Hospitalists replacement surgery Z96.641 Presence of right artificial hip joint E87.1 Hypo-osmolality and hyponatremia N17.9 Acute kidney failure, unspecified I10 Essential (primary) hypertension E11.9 Type 2 diabetes mellitus without complications Office Visit 08/19/2018 [facility] Crystal Z47.1 Aftercare 11:29a Assoc,pc MARLIOU Mathis following joint Hospitalists replacement surgery Z96.641 Presence of right artificial hip joint E87.1 Hypo-osmolality and hyponatremia I10 Essential (primary) hypertension E11.9 Type 2 diabetes mellitus without complications N17.9 Acute kidney failure, unspecified Office Visit 08/18/2018 [facility] Crystal Z96.641 Presence of 11:23a Assoc,pc MARILOU Mathis right artificial Hospitalists hip joint Z47.1 Aftercare following joint replacement surgery I10 Essential (primary) hypertension E11.9 Type 2 diabetes mellitus without complications E87.1 Hypo-osmolality and hyponatremia N17.9 Acute kidney failure, unspecified Office Visit 08/17/2018 11:07a [facility] Frantz Rebollar, E11.9 Type 2 [...] Office Visit 05/04[facility]2017 3:30[facility] 2 [facility] Juanito mellitus with foot ulcer L97.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 L97.822 Non-prs chronic ulcer oth prt l low leg w fat layer exposed I87.313 Chronic venous hypertension w ulcer of bilateral low extrm I10 Essential (primary) hypertension Office Visit 04/27/2017 1:00p Wound Care Amina Diaz E11.621 Type 2 diabetes Center [facility] Juanito mellitus with foot ulcer L97.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 L97.822 Non-prs chronic ulcer oth prt l low leg w fat layer exposed I87.313 Chronic venous hypertension w ulcer of bilateral low extrm I10 Essential (primary) hypertension Office Visit 03/07/2017 12:10p Wound Care Blanca Castro E11.621 Type 2 diabetes Center AT [facility] JOHN GORDON, AMBER-LJ mellitus with foot ulcer L97.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 L97.822 Non-prs chronic ulcer oth prt l low leg w fat layer exposed R60.0 Localized edema M79.662 Pain in left lower leg I87.2 Venous insufficiency (chronic) (peripheral) Office Visit 03/03/2017 10:55a Wound Care Blanca Castro E11.621 Type 2 diabetes Center [facility] [place]ORDON, AMBER-LJ mellitus with foot ulcer L97.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 L97.822 Non-prs chronic ulcer oth prt l low leg w fat layer exposed R60.0 Localized edema M79.662 Pain in left lower leg Office Visit 06/30/2016 9:28a [facility] Devin Astudillo L03.116 Cellulitis of For Halle Uribe M.D. left lower limb Diseases Z96.652 Presence of left artificial knee joint Office Visit 06/30/2016 [facility] Alysha Boo L03.116 Cellulitis of 2:18p davidson De Guzman M.D. left lower limb Hospitalists E11.621 Type 2 diabetes mellitus with foot ulcer R65.20 Severe sepsis without septic shock Office Visit 06/29/2016 9:16a [facility] Devin Astudillo L03.116 Cellulitis of For Halle Uribe M.D. 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 at [facility]/16/2019 10:30 am - Estephania Freeman MD at [facility]12/01/2018 - Alejandra Castanon M.D.A40.1 Sepsis due to streptococcus, group BT84.54xA Infection and inflammatory reaction due to internal left kneS71.001D Unspecified open wound, right hip, subsequent encounterNew Xrays:MRI Hip Right W/O, Ordered: 12/01/18Follow up:Follow up: after testing is completed - r hip mriZ96.641 Presence of right artificial hip leamwQ31.1 Aftercare following joint replacement surgery
[2018-12-13 15:55] LABS: ABS Basophils 0 10^3/ul (0-0.2); ABS Eosinophils 0.2 10^3/ul (0-0.6); ABS Lymphocytes 0.5 10^3/ul (1.0-4.8); ABS Monocytes 0.9 10^3/ul (0-0.8); ABS Neutrophils 5.8 10^3/ul (1.5-7.7); ABS Nucleated RBC 0 10^3/ul; Eosinophil % 2.4 %; Hematocrit 27 % (35-47); Hemoglobin 8.6 g/dl (12.0-16.0); Lymphocyte % 6.5 %; Mean Corpuscular HGB Conc 32 g/dl (31-36); Mean Corpuscular Hemoglobin 25 pg (27-31); Mean Corpuscular Volume 77 fL (80-97); Mean Platelet Volume 7.4 fL (7.4-10.4); Nucleated Red Blood Cells % 0; Platelet Count 191 10^3/ul (150-450); Red Blood Count 3.49 10^6/ul (4.00-5.40); Red Cell Distribution Width 22 % (10.5-15); White Blood Count 7.4 10^3/ul (3.5-10.8)
[2018-12-13 16:09] LABS: Activated Partial Thrombo Time 30.8 seconds (26.0-36.3); INR 0.99 (0.77-1.02)
[2018-12-13 16:20] LABS: Albumin 3.5 g/dL (3.2-5.2); Albumin/Globulin Ratio 1.4 (1-3); BUN/Creatinine Ratio 13.7 (8-20); C Reactive Protein 28.68 mg/L (<8.01); EGFR Non-African American 45.6 (>60); Globulin 2.5 g/dL (2-4); Potassium 5.2 mmol/L (3.5-5.0); Total Bilirubin 0.2 mg/dL (0.2-1.0)
[2018-12-13 16:40] LABS: Erythrocyte Sed Rate 43 mm/Hr (0-40)
[2018-12-13] MEDS ORDERED: NS 0.9% 1000 ML* 1,000 ML IV ONE (17:08)
[2018-12-13] MEDS ORDERED: Ondansetron INJ* 2 MG/ML VIAL IV PRN (18:03)
[2018-12-13] MEDS ORDERED: Acetaminophen TAB* 325 MG PO PRN ×2 (18:03→18:11)
[2018-12-13] MEDS ORDERED: Magnesium Hydroxide LIQ* 30 ML UDC PO PRN (18:11)
[2018-12-13] MEDS ORDERED: Hydrocodone/Acetamin 10/325 1 TAB PO PRN (18:11)
[2018-12-13] MEDS ORDERED: Calcium Carbonate CHEW TAB* 500 MG (TUMS) PO PRN (18:11)
[2018-12-13] MEDS ORDERED: Dextrose 50% Syringe 50 ML* 25 GM/50 ML SYRINGE IV PUSH PRN (18:14)
[2018-12-13] MEDS ORDERED: Lactated Ringers 1000 ML Bag* 1,000 ML IV SCH (19:00)
[2018-12-13] MEDS ORDERED: Acetaminophen TAB* 325 MG ONE (19:02)
[2018-12-13] MEDS ORDERED: diPHENhydraMINE PO* 25 MG ONE (19:02)
[2018-12-13] MEDS: diPHENhydraMINE PO* 25 MG PO PRN (19:04)
[2018-12-13] MEDS ORDERED: Enoxaparin(*) 100 MG/ML SYR SUBCUT ONE (21:00)
[2018-12-13] MEDS ORDERED: Docusate CAP* 100 MG PO SCH (21:00)
[2018-12-13] MEDS: NS 0.9% 1000 ML* 1,000 ML IV SCH (21:04)
[2018-12-13] MEDS: Hydrocodone/Acetamin 10/325 1 TAB PO SCH (21:06)
[2018-12-13] MEDS: Cefepime 1 GM in Dextrose(*) 1 GM/50 ML BAG IV SCH (21:11)
[2018-12-13] MEDS: Insulin LISPRO* 1 UNITS UNIT SUBCUT SCH (21:16)
[2018-12-13] MEDS ORDERED: Vancomycin per Pharmacy* NOTE FOLLOW UP PRN (21:37)
[2018-12-13] MEDS: Vancomycin(*) 1,250 MG in NS 0.9% 250 ML* 250 ML IVPB SCH ×2 (21:46→21:47)
[2018-12-13] MEDS ORDERED: Heparin VIAL(*) 5000 UNITS/ML VIAL (FIVE THOUSAND) SUBCUT SCH (22:00)
--- NOTE | 2018-12-13 22:45 | HP ---
CC: Dr. Odalys Adames; Dr. Alejandra Castanon; Dr. Devin Neff; Dr. Estephania Freeman * ADMISSION HISTORY AND PHYSICAL: DATE OF ADMISSION: 12/13/18 PRIMARY CARE PROVIDER: Dr. Odalys Adames. MY ATTENDING WHILE IN THE HOSPITAL: Dr. Juan Cervantes.* (DICTATED BY JOVANNI PAIZ) OUTPATIENT ORTHOPEDIST: Dr. Alejandra Castanon. OUTPATIENT INFECTIOUS DISEASE DOCTOR: Dr. Devin Neff. OUTPATIENT NEUROSURGEON: Dr. Estephania Freeman. CHIEF COMPLAINT: Abnormal MRI results. HISTORY OF PRESENT ILLNESS: Ms. Leon is a 73-year-old female with a recent past medical history that is very complex having been recently hospitalized at this institution from 10/30/18 to 11/10/18. 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 The patient has been nonweightbearing since that time and has been on ceftriaxone [address] Devin Neff of Infectious Disease. The patient also has spinal epidural abscess, which was drained by Dr. Estephania Freeman of Neurosurgery with a laminectomy. The patient has been on ceftriaxone for this as well. The patient had a complex hospital course and was discharged to [facility] on 11/10/18. The patient came back to the emergency department on 11/27/18 with concern for drainage from her lumbar spine incision. The patient at that time was covered with 10 days of Bactrim and the drainage from her spinal incision. It has resolved. The patient was feeling in her normal state of health. The patient has been having issues with pain control in her left lower extremity with some swelling, which has been getting worse over the last several days. The patient has been having intermittent numbness and tingling, which she attributes to an Cornelio wrap that was left on too tight. The patient has also been having some loose stools for the last 3 or 4 days with 2 bowel movements a day, but no abdominal pain associated with her diarrhea. The patient has been having nausea, but only after administration of her pain medication. The patient has been having shooting pains from her back into her legs particularly with movements between the bed and her chair using the Marjan lift. The patient denies any saddle anesthesia, loss of bowel or bladder control. The patient has been doing her best to maintain nonweightbearing status on her left leg while doing PT and has been able to hop several times in a row while in PT, but has been making generally minimal progress. The patient has lost over 16 pounds since she has been in the [facility], which she attributes to nausea and early satiety, which she associates with her pain medication. The patient denies fevers, chills, dizziness, chest pain, shortness of breath. The patient had drainage from her right hip at a recent followup with Dr. Castanon and was referred for an MRI, which was completed this morning, which showed a sinus tract connecting the skin to her prosthetic joint, which was done in July. The patient, at that point, was referred to the emergency department for admission and possible washout of her hip in the morning. The patient in the emergency department had slightly decreased sodium approximately at her baseline and elevated potassium at 5.2 and CRP, which had been trending up from her most recent low values to 28.68, but no white blood cell count and anemia at her baseline. We were asked by Orthopedics to evaluate the patient for admission to hospital. 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 PAST SURGICAL HISTORY: Lumpectomy x3 and radiotherapy, left total knee arthroplasty, bilateral carpal tunnel release, right total hip arthroplasty, C- section, spinal epidural abscess evacuation, and laminectomy. MEDICATIONS: At [facility], per their most recent records: 1. Ceftriaxone 2 g IV daily. 2. Heparin lock for PICC line 10 mL daily. 3. Ascorbic acid 500 mg p.o. daily. 4. Calcium D 5000 units p.o. daily. 5. Magnesium oxide 800 mg p.o. daily. 6. Metformin 500 mg p.o. b.i.d. 7. Januvia 50 mg p.o. daily. 8. Amlodipine 10 mg p.o. daily. 9. Omeprazole 20 mg p.o. daily. 10. Colace 100 mg p.o. daily. 11. Ferrous sulfate 325 mg p.o. daily. 12. Hydrocodone/acetaminophen 10/325 one tab every 8 hours as needed for pain. 13. Lisinopril 20 mg p.o. daily. 14. Sodium chloride tab 1 g p.o. daily. 15. Benadryl 25 mg p.o. q.6 hours as needed for itching. ALLERGIES: LATEX, ADHESIVES. FAMILY HISTORY: The patient's mother of CAD. The patient's father of renal failure. The patient has 5 siblings with diabetes mellitus and a brother with stroke and pseudobulbar affect. SOCIAL HISTORY: The patient has never smoked, never drank. Denies illicit drug use. The patient used to work at [employer], is currently on disability. The patient is and has 3 children. The patient's surrogate decision maker is her sister, Rashmi Castro. REVIEW OF SYSTEMS: A 14-point review of systems was reviewed with the patient, is negative except as above in the HPI. PHYSICAL EXAMINATION GENERAL: The patient is a 73-year-old female, who appears stated age, sitting comfortably in bed, in no acute distress. VITAL SIGNS: Temperature 98.5, pulse rate 78, respiratory rate 18, oxygen saturation 94% on room air, blood pressure 93/48. HEENT: Head is normocephalic, atraumatic. Sclerae anicteric. No conjunctival injection. Nasal mucosa moist. Oral mucosa moist. No pharyngeal erythema, discharge, or exudate. NECK: Supple. No lymphadenopathy. No carotid bruit auscultated. No JVD. RESPIRATORY: Clear to auscultation bilaterally. No wheezes, rales, or rhonchi. Good air exchange bilaterally. CARDIAC: Regular rate and rhythm. No clicks, murmurs, gallops, or rubs. Pulses 2+ in the bilateral dorsalis pedis, posterior tibial, and radial areas. 2+ pitting edema in the left lower extremity with calf tenderness underneath the patient's immobilizing dressing without skin breakdown. ABDOMEN: Soft, nontender, and nondistended. Bowel sounds present. Normoactive in all 4 quadrants. No hepatosplenomegaly. No abdominal bruits auscultated. No hepatojugular reflux. GENITOURINARY: No suprapubic or CVA tenderness. NEURO: Cranial nerves II through XII intact. No focal deficits. Alert and oriented x3. PSYCHIATRIC: Pleasant and cooperative. SKIN: Lower extremity incisions intact with sutures in place. No discharge. Minimal erythema. Right hip incision almost fully healed. No signs of discharge at this time. Right knee covered with a bulky dressing, not visualized. DIAGNOSTIC STUDIES/LAB DATA: White blood cell count 7.4, hemoglobin 8.6, platelet count 191. INR 0.99, aPTT 30.8. Sodium 126, potassium 5.2, chloride 94, carbon dioxide 25, anion gap 7, BUN 16, creatinine 1.17, glucose 137, lactic acid 1.7, calcium 9.0. Bilirubin 0.2, AST 8, ALT 5, alkaline phosphatase 60. Creatine kinase 14. Troponin I 0.01. CRP 28.68. BNP 56. Total protein 6.0, albumin 3.5, globulin 2.5. Electrocardiogram shows normal sinus rhythm, left axis deviation, no ST-segment abnormalities, no hypertrophy or enlargement, rate of 83, QTc of 398. Chest x-ray read as no acute cardiopulmonary disease. ASSESSMENT AND PLAN: Impression: Ms. Leon is a 73-year-old female with a past medical history significant for a recent group B strep prosthetic joint infection and spinal epidural abscess with respective explantation and drainage as well as diabetes mellitus and hypertension, who was sent in from her orthopedist's office to the emergency department for concern regarding a sinus tract in her right hip and drainage from her wound. The patient will be admitted to the hospital for possible I and D and wash out as well as IV antibiotics. 1. Possible right-sided hip infection. The patient has a sinus tract on her MRI, which was concerning to her orthopedist, Dr. Castanon, for infection. The patient will be started on vancomycin and cefepime. The patient had a wound culture, which showed no organisms on the Gram stain. The patient will be started on vancomycin and cefepime. The patient has been on ceftriaxone 2 g daily. We will await wound culture. Further cultures will be obtained hopefully tomorrow with surgical incision and drainage of the patient's wound. The patient currently is hyperkalemic slightly and her most recent blood pressure was 93/48. The patient's blood pressure was initially normal when she arrived to the emergency department. The patient is being bolused with fluid and will have ongoing hydration with normal saline at 100 mL an hour and a repeat BMP will be performed in the morning. The patient's creatinine is at her baseline. The patient is not treated with insulin outpatient. As such, the patient's RCRI is 0 with 0.4% risk of major cardiac event. The patient had an echocardiogram on 10/31/18, which showed abnormal diastolic dysfunction, no vegetations, and no valvular abnormalities. The patient has shown no acute signs of congestive heart failure in the past. The patient has recently undergone 2 surgeries without incident. After repeat BMP and with resolution of hypotension, the patient will be medically optimized for surgery. 2. Group B strep prosthetic infection of the left lower extremity. The patient 's left lower extremity prosthesis has already been explanted and has been treated with several weeks of ceftriaxone 2 g daily. This infection does not show any signs of recurrence, though repeat evaluation with an MRI may be beneficial if there is concern for ongoing infection. This decision will be deferred to Orthopedics. The patient will be nonweightbearing on this extremity and have physical therapy and occupational therapy postoperatively. 3. History of spinal epidural abscess. The patient was seen by her neurosurgeon today and he had no concerns per the patient. The patient was treated with 10 days of Bactrim for drainage from her epidural abscess and has no current drainage. The patient has no need for neurosurgical consultation during hospitalization unless her clinical status changes. 4. Diabetes mellitus, type 2. The patient is controlled on metformin and Januvia outpatient. The patient's most recent hemoglobin A1c a little over 1 month ago was 7.5. This will not be repeated. The patient will be on insulin sliding scale while in the hospital with adjustment based on insulin needs to include scheduled insulin with meals and possible basal insulin dosing. 5. Anemia. The patient was diagnosed with iron deficiency anemia with a low iron level, low percent saturation, though high ferritin level when she was last admitted. This likely represents combination of anemia of chronic disease and iron deficiency anemia. Continue the patient on her ferrous sulfate, though she is unlikely to be absorbing very much of it. The patient is not a candidate for IV iron. The patient will be transfused as needed. 6. Hypertension. The patient is currently hypotensive. We will hold the patient's amlodipine and lisinopril. 7. Hyponatremia. The patient's hyponatremia is chronic and is decreased slightly from her most recent laboratory value. The patient will be hydrated with normal saline, which will help to increase her sodium if she is solute depleted. The patient will have repeat sodium level drawn in the morning and urine studies based on the patient's response to normal saline will be ordered. 8. Hyperkalemia. The patient has elevated potassium, likely related to recent treatment with Bactrim. The patient's potassium has been decreasing from a high of 5.6 on 12/04/18. The patient will be volume expanded. There is no other indication for other potassium-lowering therapies. At this time, the patient has no EKG changes consistent with hyperkalemia. 9. DVT prophylaxis. The patient will have 1 shot of heparin now and will have none after midnight. The patient will have SCDs. The patient will have a lower extremity Doppler of her left leg due to the swelling and recent immobilization to rule out deep venous thrombosis. 10. FEN. The patient will have a heart-healthy diet without caffeine, be n.p.o. after midnight, and have fluids at 100 mL an hour. The patient received 1000 mL bolus while in the emergency department. 11. Code status. The patient would like to be a full code. TIME SPENT: Approximately 90 minutes was spent on this admission of this patient, 30 of which was spent [id number] with the patient obtaining history and physical and discussing treatment plan. This plan has been discussed with my attending, Dr. Juan Cervantes, and he is in agreement. JOVANNI PAIZ [id number]/[facility] #: [id number] MTDD
[2018-12-14] MEDS ORDERED: Vancomycin(*) 1,250 MG in NS 0.9% 250 ML* 250 ML IVPB SCH ×2
[2018-12-14 04:49] LABS: Urine Appearance Clear; Urine Bilirubin Negative (Negative); Urine Blood Negative (Negative); Urine Color Yellow; Urine Glucose Negative (Negative); Urine Ketones Negative (Negative); Urine Nitrite Negative (Negative); Urine Protein Negative (Negative); Urine Specific Gravity 1.013 (1.010-1.030); Urine Urobilinogen Negative (Negative)
[2018-12-14 06:18] LABS: ABS Basophils 0 10^3/ul (0-0.2); ABS Eosinophils 0.3 10^3/ul (0-0.6); ABS Lymphocytes 0.8 10^3/ul (1.0-4.8); ABS Monocytes 0.6 10^3/ul (0-0.8); ABS Neutrophils 3.4 10^3/ul (1.5-7.7); ABS Nucleated RBC 0 10^3/ul; Eosinophil % 6.3 %; Hematocrit 24 % (35-47); Hemoglobin 7.9 g/dl (12.0-16.0); Lymphocyte % 15.6 %; Mean Corpuscular HGB Conc 33 g/dl (31-36); Mean Corpuscular Hemoglobin 25 pg (27-31); Mean Corpuscular Volume 77 fL (80-97); Mean Platelet Volume 7.2 fL (7.4-10.4); Nucleated Red Blood Cells % 0.1; Platelet Count 171 10^3/ul (150-450); Red Blood Count 3.14 10^6/ul (4.00-5.40); Red Cell Distribution Width 22 % (10.5-15); White Blood Count 5.2 10^3/ul (3.5-10.8)
[2018-12-14 06:29] LABS: BUN/Creatinine Ratio 18.5 (8-20); Calcium 8.5 mg/dL (8.6-10.3); EGFR Non-African American 69.7 (>60); Magnesium 1.8 mg/dL (1.9-2.7); Potassium 4.9 mmol/L (3.5-5.0)
[2018-12-14] MEDS: Cefepime 1 GM in Dextrose(*) 1 GM/50 ML BAG IV SCH ×2 (08:58→19:42)
[2018-12-14] MEDS: NS 0.9% 1000 ML* 1,000 ML IV SCH (09:06)
[2018-12-14] MEDS ORDERED: Morphine VIAL* 4 MG/ML VIAL (1 ml vial) IV PRN (09:26)
[2018-12-14] MEDS: Pantoprazole TAB * 40 MG TAB PO SCH (10:16)
[2018-12-14] MEDS: Insulin LISPRO* 1 UNITS UNIT SUBCUT SCH ×5 (10:17→21:57)
[2018-12-14] MEDS: Ascorbic Acid TAB* 500 MG PO SCH (10:18)
[2018-12-14] MEDS: Ferrous Sulfate TAB* 325 MG PO SCH (10:18)
[2018-12-14] MEDS: Cholecalciferol TAB* 1000 UNITS PO SCH (10:18)
[2018-12-14] MEDS: Hydrocodone/Acetamin 10/325 1 TAB PO SCH ×3 (10:19→21:57)
[2018-12-14] MEDS: Lactobacillus Acidophilus* 1 TAB PO SCH (10:19)
[2018-12-14] MEDS: Magnesium Oxide TAB* 400 MG PO SCH (10:29)
[2018-12-14] MEDS ORDERED: Magnesium Sulfate 2 GM IV* 2 GM/50 ML BAG IVPB ONE (12:04)
--- NOTE | 2018-12-14 12:19 | CONS ---
CONSULTATION REPORT: DATE OF CONSULT: 12/14/18 REQUESTING PHYSICIAN: Dr. Castanon. CONSULTING SERVICE: Infectious Disease. REASON FOR CONSULT: Right hip infection. IMPRESSION: 1. Right hip arthroplasty with the head opened up and drained intermittently, small subcutaneous collection on MRI and possible sinus tract. 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 I suspect the right hip is streptococcal in nature as well. 2. Obesity. 3. Type 2 diabetes mellitus. 4. Vertebral osteodiskitis on her hip MRI, which is sequelae of her recent epidural abscess and for which she is being treated with antibiotics. MRI will remain abnormal for a month. RECOMMENDATION: We will stop her vancomycin and continue cefepime. Await results of the hip exploration. Assuming no new organisms are isolated, we will change her back to ceftriaxone for a long course of IV antibiotics. HISTORY OF PRESENT ILLNESS: This is a 73-year-old woman with a recent admission for group B strep sepsis due to prosthetic left knee infection and lumbar spine epidural abscess and vertebral osteodiskitis. She had decompression of the lumbar spine, drainage of epidural abscess, as well as explantation of the left knee and has been on ceftriaxone ever since. Apparently, recently had opening up of the right hip incision and intermittently draining fluid, which has since healed back over, though an MRI done last week showed small pocket in the subcutaneous tissues as well as a sinus tract down to the joint. She has some left knee pain today, the right hip is intermittently painful. She has been in rehab at [facility]. She has been receiving IV antibiotics through a PICC line, which has been of no difficulty to her. She is afebrile here. She has a white count of 7. Her CRP is 28, was about 320 at her initial presentation early October. No other new joint pains and her back pain is slowly improving. She can move her legs okay except for that left leg which is hampered by the lack of a knee. PAST MEDICAL HISTORY: 1. Type 2 diabetes mellitus. 2. Breast cancer, status post lumpectomy x3 and radiation. 3. Hypertension. 4. Streptococcal epidural abscess of the lumbar spine, status post decompression. 5. Streptococcal prosthetic left knee infection, status post explantation. 6. Status post bilateral carpal tunnel release. 7. Status post right hip arthroplasty. 8. Status post . MEDICATIONS: 1. Tylenol. 2. Vitamin C. 3. Calcium carbonate. 4. Cholecalciferol. 5. Ferrous sulfate. 6. Vicodin as needed. 7. Lactobacillus. 8. Magnesium. 9. Cefepime 1 g IV twice daily. 10. Vancomycin. 11. Zofran. 12. Nystatin. 13. Pantoprazole. ALLERGIES: LATEX, ADHESIVES. FAMILY HISTORY: Mother with coronary artery disease. Father with renal disease. SOCIAL HISTORY: She lives with her sister in [place], though recently has been at [facility]. She is a nonsmoker. REVIEW OF SYSTEMS: All negative to 14-point review except as noted above in the history of present illness. PHYSICAL EXAM: Vital Signs: Temperature 37, heart rate 70, respiratory rate 16 , blood pressure 122/48, oxygen saturation 98% on room air. In general, she is awake, not in distress. Neurologic: She is oriented x3, follows all commands. HEENT: There is no conjunctival hemorrhage. Oropharynx without lesions. Neck : Supple, without mass. Heart: Regular rate and rhythm, without murmurs, rubs , or gallops. Lungs: Clear to auscultation bilaterally. Abdomen: Soft, nontender, nondistended. Bowel sounds present. Skin: There is no rash or splinter hemorrhage. Musculoskeletal: There is no spine tenderness to palpation. There is no lumbar spine dehiscence. The left knee incision is intact. There is trace edema and tenderness, without warmth or erythema. Right hip incision is intact. I did not put it through range of motion. DIAGNOSTIC STUDIES/LAB DATA: White blood cell count 5, hemoglobin 8, platelets 171, creatinine is 0.8. Please see impressions and recommendations as outlined above. Thank you for asking me to see Ms. Leon in consultation. [id number]/[facility] #: [id number] MTDD
[2018-12-14] MEDS ORDERED: Heparin VIAL(*) 5000 UNITS/ML VIAL (FIVE THOUSAND) IV SCH (12:30)
[2018-12-14] MEDS: Nystatin TOP POWDER* 15 GM BTL TOPICAL PRN (13:08)
--- NOTE | 2018-12-14 15:42 | PN ---
Progress Note - Progress Note Date of Service: 12/14/18 SOAP: Subjective: []Pt seen and examined at bedside. She feels well without right hip pain. Denies CP, SOB, dizziness or nausea. Objective: []General: Well appearing, NAD RLE: Right hip incision CDI without drainage, no open areas, no erythema. F/E hip is nonpainful. LLE knee incision well healed, immobilizer in place Assessment: []R hip concern for infection due to sinus tract L knee sp explant Plan: []12/15 morning needs radiology guided aspiration of right hip no need to stop heparin for this Potential need for washout of right hip pending findings of aspiration Discussed anticoag with medicine: will need heparin drip stopped 4 hours prior to washout. Due to DVT is would be recommended to restart heparin drip right after surgery if possible without boluses. Vital Signs Temp 98.1 F 12/14/18 15:42 Pulse 83 12/14/18 15:42 Resp 18 12/14/18 15:42 BP 121/49 12/14/18 15:42 Pulse Ox 97 12/14/18 15:42 Intake & Output 12/13/18 12/14/18 12/14/18 18:59 06:59 18:59 Intake Total 250 1175 1861 Output Total 600 Balance 155 287 0629 Weight 204 lb 214 lb 8 oz Intake: IV Fluids 250 1000 1811 ABX - CEFEPIME 1310 NS (0.9%) 501 IVPB 55 50 ABX - CEFEPIME 55 NS (0.9%) 50 Oral 120 Output: Urine 600 Other: Estimated Void Medium Medium # Bowel Movements 1 1 Estimated Stool Amount Medium Large # Voids 1 Laboratory Last Values WBC 5.2 10^3/ul (3.5-10.8) 12/14/18 05:50 RBC 3.14 10^6/ul (4.00-5.40) L 12/14/18 05:50 Hgb 7.9 g/dl (12.0-16.0) L 12/14/18 05:50 Hct 24 % (35-47) L 12/14/18 05:50 MCV 77 fL (80-97) L 12/14/18 05:50 MCH 25 pg (27-31) L 12/14/18 05:50 MCHC 33 g/dl (31-36) 12/14/18 05:50 RDW 22 % (10.5-15) H 12/14/18 05:50 Plt Count 171 10^3/ul (150-450) 12/14/18 05:50 MPV 7.2 fL (7.4-10.4) L 12/14/18 05:50 Neut % (Auto) 65.2 % 12/14/18 05:50 Lymph % (Auto) 15.6 % 12/14/18 05:50 Calhoun % (Auto) 12.0 % 12/14/18 05:50 Eos % (Auto) 6.3 % 12/14/18 05:50 Baso % (Auto) 0.9 % 12/14/18 05:50 Absolute Neuts (auto) 3.4 10^3/ul (1.5-7.7) 12/14/18 05:50 Absolute Lymphs (auto) 0.8 10^3/ul (1.0-4.8) L 12/14/18 05:50 Absolute Monos (auto) 0.6 10^3/ul (0-0.8) 12/14/18 05:50 Absolute Eos (auto) 0.3 10^3/ul (0-0.6) 12/14/18 05:50 Absolute Basos (auto) 0 10^3/ul (0-0.2) 12/14/18 05:50 Absolute Nucleated RBC 0 10^3/ul 12/14/18 05:50 Nucleated RBC % 0.1 12/14/18 05:50 ESR 43 mm/Hr (0-40) H 12/13/18 15:26 INR (Anticoag Therapy) 0.99 (0.77-1.02) 12/13/18 15:26 APTT 33.5 seconds (26.0-36.3) 12/14/18 13:21 Sodium 130 mmol/L (135-145) L 12/14/18 05:50 Potassium 4.9 mmol/L (3.5-5.0) 12/14/18 05:50 Chloride 100 mmol/L (101-111) L 12/14/18 05:50 Carbon Dioxide 24 mmol/L (22-32) 12/14/18 05:50 Anion Gap 6 mmol/L (2-11) 12/14/18 05:50 BUN 15 mg/dL (6-24) 12/14/18 05:50 Creatinine 0.81 mg/dL (0.51-0.95) 12/14/18 05:50 Est GFR ( Amer) 84.3 (>60) 12/14/18 05:50 Est GFR (Non-Af Amer) 69.7 (>60) 12/14/18 05:50 BUN/Creatinine Ratio 18.5 (8-20) 12/14/18 05:50 Glucose 114 mg/dL (70-100) H 12/14/18 05:50 POC Glucose (mg/dL) 140 mg/dL (70-100) H 12/14/18 11:56 Lactic Acid 0.9 mmol/L (0.5-2.0) 12/13/18 19:26 Calcium 8.5 mg/dL (8.6-10.3) L 12/14/18 05:50 Magnesium 1.8 mg/dL (1.9-2.7) L 12/14/18 05:50 Total Bilirubin 0.20 mg/dL (0.2-1.0) 12/13/18 15:26 AST 8 U/L (13-39) L 12/13/18 15:26 ALT 5 U/L (7-52) L 12/13/18 15:26 Alkaline Phosphatase 60 U/L (34-104) 12/13/18 15:26 Total Creatine Kinase 14 U/L (10-223) 12/13/18 15:26 Troponin I 0.01 ng/mL (<0.04) 12/13/18 15:26 C-Reactive Protein 28.68 mg/L (<8.01) H 12/13/18 15:26 B-Natriuretic Peptide 56 pg/mL (<=100) 12/13/18 15:26 Total Protein 6.0 g/dL (6.4-8.9) L 12/13/18 15:26 Albumin 3.5 g/dL (3.2-5.2) 12/13/18 15:26 Globulin 2.5 g/dL (2-4) 12/13/18 15:26 Albumin/Globulin Ratio 1.4 (1-3) 12/13/18 15:26 Urine Color Yellow 12/14/18 03:40 Urine Appearance Clear 12/14/18 03:40 Urine pH 6.0 (5-9) 12/14/18 03:40 Ur Specific Lavelle 1.013 (1.010-1.030) 12/14/18 03:40 Urine Protein Negative (Negative) 12/14/18 03:40 Urine Ketones Negative (Negative) 12/14/18 03:40 Urine Blood Negative (Negative) 12/14/18 03:40 Urine Nitrate Negative (Negative) 12/14/18 03:40 Urine Bilirubin Negative (Negative) 12/14/18 03:40 Urine Urobilinogen Negative (Negative) 12/14/18 03:40 Ur Leukocyte Esterase Negative (Negative) 12/14/18 03:40 Urine Glucose Negative (Negative) 12/14/18 03:40 Urine Ascorbic Acid * (Negative) A 12/14/18 03:40 Blood Type A Positive 12/14/18 05:50 Antibody Screen Negative 12/14/18 05:50 Crossmatch See Detail 12/14/18 05:50
[2018-12-14] MEDS: Heparin DRIP 25,000 UNITS(*) 25,000 UNITS/500 ML BAG IV SCH (16:20)
[2018-12-14] MEDS: diPHENhydraMINE PO* 25 MG PO PRN (17:29)
--- NOTE | 2018-12-14 18:50 | PN ---
Subjective Date of Service: 12/14/18 Interval History: patient reports no right hip pain, denies chest pain or shortness of breath. denies abd pain n/v/d. knee immobilizer intact to right knee, right knee is warm to the touch, healing scabbed incision noted. right hip no drainage or open incision Family History: Unchanged from Admission Social History: Unchanged from Admission Past Medical History: Unchanged from Admission Objective Active Medications: Acetaminophen (Tylenol Tab*) 650 mg PO Q6H PRN PRN Reason: PAIN Hydrocodone Bitart/Acetaminophen ([place] 10/325 (Nf)) 1 tab PO BEDTIME PRN PRN Reason: PAIN Hydrocodone Bitart/Acetaminophen ([place] 10/325 (Nf)) 1 tab PO TID [facility] Last Admin: 12/14/18 14:08 Dose: 1 tab Ascorbic Acid (Vitamin C Tab*) 500 mg PO DAILY [facility] Last Admin: 12/14/18 10:18 Dose: Not Given Calcium Carbonate (Tums*) 500 mg PO TID PRN PRN Reason: DYSPEPSIA Cholecalciferol (Vitamin D Tab*) 5,000 units PO QAM [facility] Last Admin: 12/14/18 10:18 Dose: Not Given Dextrose (D50w Syringe 50 Ml*) 12.5 gm IV PUSH .FOR FS < 60 - SS PRN PRN Reason: FS < 60 Diphenhydramine HCl (Benadryl Po*) 25 mg PO Q6H PRN PRN Reason: PRURITIS Last Admin: 12/14/18 17:29 Dose: 25 mg Ferrous Sulfate (Ferrous Sulfate Tab*) 325 mg PO DAILY [facility] Last Admin: 12/14/18 10:18 Dose: Not Given Heparin Sodium (Porcine) (Heparin Flush Picc/Ml/Cvc(*)) 1 - 3 ml IV FLUSH BID [facility]; Protocol Last Admin: 12/14/18 10:19 Dose: Not Given Heparin Sodium (Porcine) (Heparin Vial(*)) 0 units IV .PER PROTOCOL [facility] Cefepime HCl (Maxipime 1 Gm In Dextrose Duplex (*)) 1 gm in 50 mls @ 100 mls/ hr IV Q12H [facility] Last Admin: 12/14/18 08:58 Dose: 100 mls/hr Sodium Chloride (Ns 0.9% 1000 Ml*) 1,000 mls @ 100 mls/hr IV PER RATE [facility] Last Admin: 12/14/18 09:06 Dose: 100 mls/hr Heparin Sodium/Dextrose (Heparin Drip 25,000 Units(*)) 25,000 units in 500 mls @ 0 mls/hr IV PER RATE [facility]; Protocol Last Admin: 12/14/18 16:20 Dose: 28 mls/hr Insulin Human Lispro (Humalog*) 0 units SUBCUT ACHS [facility]; Protocol Last Admin: 12/14/18 17:28 Dose: 3 units Lactobacillus Rhamnosus (Lactobacillus Acidophilus*) 1 tab PO DAILY [facility] Last Admin: 12/14/18 10:19 Dose: Not Given Lactulose (Lactulose*) 30 ml PO DAILY PRN PRN Reason: CONSTIPATION Magnesium Hydroxide (Milk Of Magnesia Liq*) 30 ml PO BID PRN PRN Reason: CONSTIPATION Magnesium Oxide (Magox 400 Tab*) 800 mg PO DAILY [facility] Last Admin: 12/14/18 10:29 Dose: Not Given Morphine Sulfate (Morphine Vial*) 1 mg IV Q2H PRN PRN Reason: PAIN - SEVERE Last Admin: 12/14/18 10:42 Dose: 1 mg Nystatin (Nystatin Top Powder*) 1 applic TOPICAL BID PRN PRN Reason: ITCHING Last Admin: 12/14/18 13:08 Dose: 1 unit Ondansetron HCl (Zofran Inj*) 4 mg IV Q6H PRN PRN Reason: NAUSEA Pantoprazole Sodium (Protonix Tab (Nf)) 40 mg PO DAILY@0700 [facility] Last Admin: 12/14/18 10:16 Dose: Not Given Vital Signs - 8 hr 12/14/18 12/14/18 12/14/18 11:27 11:30 14:08 Temperature 97.9 F Pulse Rate 77 Respiratory 16 16 16 Rate Blood Pressure 120/46 (mmHg) O2 Sat by Pulse 99 Oximetry 12/14/18 12/14/18 12/14/18 15:42 16:21 17:29 Temperature 98.1 F 98.2 F Pulse Rate 83 79 Respiratory 18 16 18 Rate Blood Pressure 121/49 116/50 (mmHg) O2 Sat by Pulse 97 96 Oximetry Oxygen Devices in Use Now: None Appearance: no acute distress , alert and oriented x 3 Eyes: No Scleral Icterus Ears/Nose/Mouth/Throat: Clear Oropharnyx, Mucous Membranes Moist Neck: NL Appearance and Movements; NL JVP, Trachea Midline Respiratory: Symmetrical Chest Expansion and Respiratory Effort, Clear to Auscultation Cardiovascular: NL Sounds; No Murmurs; No JVD, No Edema Abdominal: NL Sounds; No Tenderness; No Distention Extremities: No Clubbing, Cyanosis, - - mild swelling noted to right knee, pedal pulses +2 bilat , healed surgical incision to right hip, no drainage Skin: No Rash or Ulcers Neurological: Alert and Oriented x 3 Nutrition: Taking PO's Result Diagrams: 12/15/18 06:00 12/15/18 12:45 Microbiology and Other Data: Microbiology 12/13/18 15:41 Aerobic Blood Culture - Preliminary Blood Venous No Growth Day 1 Anaerobic Blood Culture - Preliminary No Growth Day 1 12/13/18 15:34 Aerobic Blood Culture - Preliminary Blood Venous No Growth Day 1 Anaerobic Blood Culture - Preliminary No Growth Day 1 12/13/18 15:26 Gram Stain - Final Hip Right Wound Culture - Preliminary No Growth Day 1 Assess/Plan/Problems-Billing Assessment: - Patient Problems (1) Right hip pain Current Visit: Yes Status: Acute Code(s): M25.551 - PAIN IN RIGHT HIP SNOMED Code(s): 63885195 Comment: Ortho following Right hip with no open areas, no open area - concern for joint infection - patient will have right hip joint fluid aspirated tomorrow with ID - may need possible wash out if fluid is infected - ortho following - will continue cefepime as per ID recommendations (2) Anemia Current Visit: No Status: Acute Code(s): D64.9 - ANEMIA, UNSPECIFIED SNOMED Code(s): 123306884 Comment: - Likely anemia of chronic disease - will transfuse 2 unit of PRBC's- given the patient may need right hip wash out for joint infection and the need for anticoagulation for DVT in left leg. (3) Epidural abscess Current Visit: No Status: Acute Code(s): G06.2 - EXTRADURAL AND SUBDURAL ABSCESS, UNSPECIFIED SNOMED Code(s): 46818349 Comment: - s/p L3 and L4 decompressive laminectomies with evacuation of epidural abscess 10/31 secondary to groub B strep septicemia. 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 - Continue NWB LLE with immobilizer. - continue pain medicaitons - continue on cefepime as per ID (6) Type II diabetes mellitus Current Visit: No Status: Acute Comment: - Continue lispro sliding scale. (7) DVT (deep venous thrombosis) Current Visit: Yes Status: Acute Code(s): I82.409 - ACUTE EMBOLISM AND THOMBOS UNSP DEEP VN UNSP LOWER EXTREMITY SNOMED Code(s): 495302498 Comment: POSITIVE for thrombus in the left common femoral, greater saphenous , and profunda femoris veins which were incompletely compressible. - Placed on heparin drip today as patient may need to go to surgery for right hip wash out on tuesday - can convert to eliquis if patient does not need surgery (8) DVT prophylaxis Current Visit: No Status: Acute Code(s): NPQ0302 - SNOMED Code(s): 055453447 Comment: heparin drip (9) Full code status Current Visit: No Status: Acute Code(s): Z78.9 - OTHER SPECIFIED HEALTH STATUS SNOMED Code(s): 169923693
--- NOTE | 2018-12-14 21:34 | CONS ---
ORTHOPEDIC CONSULTATION REPORT: DATE OF CONSULT: 12/14/18 CHIEF COMPLAINT: Right hip fluid collection on MRI. HISTORY OF PRESENT ILLNESS: Ms. Leon is a 73-year-old female with complex medical history. She was recently hospitalized from 10/30/18 to 11/10/18. She was found to have an epidural abscess drained with Dr. Freeman. She had laminectomy and hardware placed. She was then found to have infected left total knee arthroplasty and I did explant of the left total knee arthroplasty with antibiotic cement spacer. She was found to have group B strep infection of both. I performed August 2018 right total hip arthroplasty on this patient. Throughout her hospitalization, she had no indication of infection in the right hip. Her incision was well healed and she had no pain. The patient followed up in my clinic for the left knee on 12/01/18. At that time, she noted that she had some drainage from her right hip. I was seriously concerned and there was a small area of the incision draining serosanguineous fluid. I ordered an MRI of the right hip to be done urgently. The MRI was authorized and performed on 12/13/18. This showed subcutaneous fluid collection. No significant effusion of the hip and significant edema around the implant in the spine and disk there. The patient was told to go to the emergency room for further evaluation and possible hip or spine washout. In the emergency room, the patient was noted to have significant left lower extremity swelling. A Doppler of the left leg showed significant DVT involving a large portion of the femoral vein. She was then admitted to the hospitalist group and is placed on heparin drip. The patient denies right hip pain at this time. Her main complaint is some 4/ 10 back pain. The patient's left knee gives her 6/10 pain. She has had no drainage from bad incision. The left knee has been in a knee immobilizer. Any movement of the knee causes her pain. PAST MEDICAL HISTORY: Morbid obesity, group B strep prosthetic joint infection of the left knee, group B strep epidural abscess, diabetes, breast cancer, hypertension. PAST SURGICAL HISTORY: Lumpectomy, left total knee arthroplasty, right total hip arthroplasty, bilateral carpal tunnel release, C-sections, spinal epidural abscess evacuation with laminectomy and fusion. HOME MEDICATIONS: [place] medications, please see full list. ALLERGIES: LATEX and ADHESIVES. FAMILY HISTORY: Maternal: Cardiac disease. Paternal: Renal failure. SOCIAL HISTORY: The patient is currently at [facility]. She has no tobacco, alcohol or recreational drugs. She is on disability. She is and has 3 children. Her surrogate decision-maker is her sister Rashmi Castro. REVIEW OF SYSTEMS: Fourteen systems reviewed with the patient, positive for lower back pain. She denies right hip pain. She reports significant left knee pain and instability. She reports some diarrhea, fatigue, and anorexia. PHYSICAL EXAM: Vitals: Temperature 98.2, heart rate 77, blood pressure 122/ 48. General: Patient is an overweight female, in no apparent distress. Alert and oriented x3, pleasant mood and appropriate affect. Gait is not assessed. HEENT: Atraumatic, normocephalic. Pupils equal and reactive to light. Chest: Unlabored breathing. Right Lower Extremity: The patient's right hip incision is intact. There is a small penpoint diameter scab. There is no drainage. There is no erythema. I can flex the hip to 90 degrees with minimal pain. No palpable fluid collections. Distally neurovascularly intact. Left Lower Extremity: The patient's skin is intact. The midline knee incision is well healed. No erythema or warmth. 2+ pitting edema in the lower extremity with tenderness of the calf and thigh. She is distally neurovascularly intact. DIAGNOSTIC STUDIES: Doppler of the left lower extremity shows extensive DVT. Recent right hip MRI shows sinus tract, with no significant effusion of the hip. Recent left knee films showed the cement spacer is intact and in the proper position. LABORATORY VALUES: Today, white blood cells 5.2, recent ESR 43, hematocrit 24. Sodium 130, potassium 4.9, chloride 100, BUN and creatinine 15 and 0.81, calcium 8.5. Magnesium 1.8. Urine negative for infection. ASSESSMENT AND PLAN: Ms. Leon is a 73-year-old female with complex recent history of multiple infections. The patient's left lower extremity has a cement spacer at the knee. Her total knee arthroplasty was infected with strep in October and this was explanted. There is no sign of infection of the left knee today. Unfortunately, she has significant DVT and is being anticoagulated right now. The patient's spine is handled by Dr. Freeman who did see the patient and reports he will not be adding any surgical intervention at this time. The patient's right hip wound has healed. The patient and I discussed operative and nonoperative treatment options. She has high risk of PE and because of the extensive DVT and multiple medical comorbidities. I am concerned about her wound healing at this point. Ability to heal a new hip wound concerns me as well as the fact that she has been sitting in urine and feces by her own report. We discussed that if she does have a hip infection, it should certainly be opened and washed. She has been on antibiotics for approximately 4 weeks at this point. Further confusing this picture is the fact the patient's right hip does not have significant pain and the wound is now healed. I discussed this case with Dr. Neff of Infectious Disease and the hospitalist service. The patient is high risk for surgery and I have several concerns about wound healing. We will ask Interventional Radiology to aspirate the hip joint. If aspiration does yield fluid resembling purulence, then I will take her to the operating room for open I and D of the joint after hospitalists feel she is fully anticoagulated. If aspiration of the hip joint does not yield significant fluid, I will hold for now and follow her wound. She will continue on the IV antibiotics per Dr. Neff. [id number]/[facility] #: [id number] [facility]ATR[facility] CENTERAnabell
[2018-12-15] MEDS: diPHENhydraMINE PO* 25 MG PO PRN ×3 (00:07→17:57)
[2018-12-15] MEDS: NS 0.9% 1000 ML* 1,000 ML IV SCH (05:17)
[2018-12-15] MEDS: Pantoprazole TAB * 40 MG TAB PO SCH (06:07)
[2018-12-15 06:10] LABS: ABS Basophils 0 10^3/ul (0-0.2); ABS Eosinophils 0.4 10^3/ul (0-0.6); ABS Lymphocytes 0.7 10^3/ul (1.0-4.8); ABS Monocytes 0.5 10^3/ul (0-0.8); ABS Nucleated RBC 0 10^3/ul; Eosinophil % 8.1 %; Hematocrit 29 % (35-47); Hemoglobin 9.4 g/dl (12.0-16.0); Mean Corpuscular HGB Conc 33 g/dl (31-36); Mean Corpuscular Hemoglobin 26 pg (27-31); Mean Corpuscular Volume 78 fL (80-97); Mean Platelet Volume 7.1 fL (7.4-10.4); Nucleated Red Blood Cells % 0; Platelet Count 156 10^3/ul (150-450); Red Blood Count 3.69 10^6/ul (4.00-5.40); Red Cell Distribution Width 20 % (10.5-15); White Blood Count 4.6 10^3/ul (3.5-10.8)
[2018-12-15 06:34] LABS: BUN/Creatinine Ratio 19.3 (8-20); Calcium 8.4 mg/dL (8.6-10.3); EGFR Non-African American 104.6 (>60); Potassium 4.6 mmol/L (3.5-5.0)
--- NOTE | 2018-12-15 07:11 | PN ---
Progress Note - Progress Note Date of Service: 12/15/18 SOAP: Subjective: Pt. denies R hip pain, reports back pain and L knee pain. Objective: Vital Signs: Temp Pulse Resp BP Pulse Ox 97.7 F 74 18 131/58 99 12/15/18 03:51 12/15/18 03:51 12/15/18 06:07 12/15/18 03:51 12/15/18 03:51 Laboratory Results - last 24 hr 12/14/18 12/14/18 12/14/18 03:50 05:50 07:47 WBC RBC Hgb Hct MCV MCH MCHC RDW Plt Count MPV Neut % (Auto) Lymph % (Auto) [place] % (Auto) Eos % (Auto) Baso % (Auto) Absolute Neuts (auto) Absolute Lymphs (auto) Absolute Monos (auto) Absolute Eos (auto) Absolute Basos (auto) Absolute Nucleated RBC Nucleated RBC % APTT Sodium Potassium Chloride Carbon Dioxide Anion Gap BUN Creatinine Est GFR ( Amer) Est GFR (Non-Af Amer) BUN/Creatinine Ratio Glucose POC Glucose (mg/dL) 133 H Calcium Urine Color Yellow Urine Appearance Clear Urine pH 6.0 Ur Specific [place] 1.013 Urine Protein Negative Urine Ketones Negative Urine Blood Negative Urine Nitrate Negative Urine Bilirubin Negative Urine Urobilinogen Negative Ur Leukocyte Esterase Negative Urine Glucose Negative Urine Ascorbic Acid * A Blood Type A Positive Antibody Screen Negative Crossmatch See Detail 12/14/18 12/14/18 12/14/18 11:56 13:21 17:23 WBC RBC Hgb Hct MCV MCH MCHC RDW Plt Count MPV Neut % (Auto) Lymph % (Auto) [place] % (Auto) Eos % (Auto) Baso % (Auto) Absolute Neuts (auto) Absolute Lymphs (auto) Absolute Monos (auto) Absolute Eos (auto) Absolute Basos (auto) Absolute Nucleated RBC Nucleated RBC % APTT 33.5 Sodium Potassium Chloride Carbon Dioxide Anion Gap BUN Creatinine Est GFR ( Amer) Est GFR (Non-Af Amer) BUN/Creatinine Ratio Glucose POC Glucose (mg/dL) 140 H 159 H Calcium Urine Color Urine Appearance Urine pH Ur Specific [place] Urine Protein Urine Ketones Urine Blood Urine Nitrate Urine Bilirubin Urine Urobilinogen Ur Leukocyte Esterase Urine Glucose Urine Ascorbic Acid Blood Type Antibody Screen Crossmatch 12/14/18 12/14/18 12/14/18 20:49 22:40 23:45 WBC RBC Hgb Hct MCV MCH MCHC RDW Plt Count MPV Neut % (Auto) Lymph % (Auto) [place] % (Auto) Eos % (Auto) Baso % (Auto) Absolute Neuts (auto) Absolute Lymphs (auto) Absolute Monos (auto) Absolute Eos (auto) Absolute Basos (auto) Absolute Nucleated RBC Nucleated RBC % APTT 69.1 H 67.4 H Sodium Potassium Chloride Carbon Dioxide Anion Gap BUN Creatinine Est GFR ( Amer) Est GFR (Non-Af Amer) BUN/Creatinine Ratio Glucose POC Glucose (mg/dL) 171 H Calcium Urine Color Urine Appearance Urine pH Ur Specific [place] Urine Protein Urine Ketones Urine Blood Urine Nitrate Urine Bilirubin Urine Urobilinogen Ur Leukocyte Esterase Urine Glucose Urine Ascorbic Acid Blood Type Antibody Screen Crossmatch 12/15/18 12/15/18 12/15/18 06:00 06:00 06:00 WBC 4.6 RBC 3.69 L Hgb 9.4 L Hct 29 L MCV 78 L MCH 26 L MCHC 33 RDW 20 H Plt Count 156 MPV 7.1 L Neut % (Auto) 64.7 Lymph % (Auto) 15.0 [place] % (Auto) 11.6 Eos % (Auto) 8.1 Baso % (Auto) 0.6 Absolute Neuts (auto) 3.0 Absolute Lymphs (auto) 0.7 L Absolute Monos (auto) 0.5 Absolute Eos (auto) 0.4 Absolute Basos (auto) 0 Absolute Nucleated RBC 0 Nucleated RBC % 0 APTT 86.4 H Sodium 132 L Potassium 4.6 Chloride 102 Carbon Dioxide 25 Anion Gap 5 BUN 11 Creatinine 0.57 Est GFR ( Amer) 126.5 Est GFR (Non-Af Amer) 104.6 BUN/Creatinine Ratio 19.3 Glucose 120 H POC Glucose (mg/dL) Calcium 8.4 L Urine Color Urine Appearance Urine pH Ur Specific [place] Urine Protein Urine Ketones Urine Blood Urine Nitrate Urine Bilirubin Urine Urobilinogen Ur Leukocyte Esterase Urine Glucose Urine Ascorbic Acid Blood Type Antibody Screen Crossmatch RLE - incision with pinpoint scab, wound is closed and no drainage. no erythema and no warmth. hip flexion to 90 degrees with min pain, distally nvi. LLE - skin intact, inc healing well, mod edema, ttp thigh and knee. distally nvi. Assessment: 73 yo F with fluid collection R hip s/p RTHA - evaluating for infection vs subcutaneous seroma. She is s/p epidural abscess I and D, s/p LTKA infection with explant and antibiotic space. Plan: Aspiration of R hip planned for today to guide operative vs nonop treatment for recent R hip drainage. Patient is high risk due to significant DVT LLE and poor wound healing. If aspiration indicates infection will plan 12/16/18 I and D right hip. Ortho to follow.
[2018-12-15] MEDS: Insulin LISPRO* 1 UNITS UNIT SUBCUT SCH ×4 (07:58→21:43)
[2018-12-15] MEDS: Cefepime 1 GM in Dextrose(*) 1 GM/50 ML BAG IV SCH ×2 (08:07→20:53)
--- NOTE | 2018-12-15 09:47 | PN ---
Progress Note - Progress Note Date of Service: 12/15/18 SOAP: Subjective: CC: prosthetic joint infection HPI: 73 year old woman with L spine VILMA and prosthetic left knee infection on abx with recent drainage from right hip which is resolved, fluid collection by MRI, no joint effusion. No hip pain . Objective: Vital Signs Temp 36.8 C 12/15/18 07:50 Pulse 69 12/15/18 07:50 Resp 16 12/15/18 07:50 BP 129/52 12/15/18 07:50 Pulse Ox 98 12/15/18 07:50 Intake & Output 12/14/18 12/15/18 12/15/18 18:59 06:59 18:59 Intake Total 2101 1201 Output Total 1050 Balance 2101 151 Intake: IV Fluids 1811 786 ABX - CEFEPIME 1310 Blood product 331 NS (0.9%) 501 455 IVPB 50 365 ABX - CEFEPIME 55 Blood product 310 NS (0.9%) 50 Oral 240 50 Output: Urine 1050 Other: Estimated Void Small Date of Last Bowel 12/14/2018 Movement # Bowel Movements 1 1 Estimated Stool Amount Large Medium Gen:awake, no distress HEENT: no thrush Heart:RRR no murmur Lungs:CTA BL Abd: +BS NT ND soft Skin: no rash MSK: R hip non tender no wound Laboratory Results - last 24 hr 12/14/18 12/14/18 12/14/18 03:50 05:50 11:56 WBC RBC Hgb Hct MCV MCH MCHC RDW Plt Count MPV Neut % (Auto) Lymph % (Auto) [place] % (Auto) Eos % (Auto) Baso % (Auto) Absolute Neuts (auto) Absolute Lymphs (auto) Absolute Monos (auto) Absolute Eos (auto) Absolute Basos (auto) Absolute Nucleated RBC Nucleated RBC % APTT Sodium Potassium Chloride Carbon Dioxide Anion Gap BUN Creatinine Est GFR ( Amer) Est GFR (Non-Af Amer) BUN/Creatinine Ratio Glucose POC Glucose (mg/dL) 140 H Calcium Urine Color Yellow Urine Appearance Clear Urine pH 6.0 Ur Specific [place] 1.013 Urine Protein Negative Urine Ketones Negative Urine Blood Negative Urine Nitrate Negative Urine Bilirubin Negative Urine Urobilinogen Negative Ur Leukocyte Esterase Negative Urine Glucose Negative Urine Ascorbic Acid * A Blood Type A Positive Antibody Screen Negative Crossmatch See Detail 12/14/18 12/14/18 12/14/18 13:21 17:23 20:49 WBC RBC Hgb Hct MCV MCH MCHC RDW Plt Count MPV Neut % (Auto) Lymph % (Auto) [place] % (Auto) Eos % (Auto) Baso % (Auto) Absolute Neuts (auto) Absolute Lymphs (auto) Absolute Monos (auto) Absolute Eos (auto) Absolute Basos (auto) Absolute Nucleated RBC Nucleated RBC % APTT 33.5 Sodium Potassium Chloride Carbon Dioxide Anion Gap BUN Creatinine Est GFR ( Amer) Est GFR (Non-Af Amer) BUN/Creatinine Ratio Glucose POC Glucose (mg/dL) 159 H 171 H Calcium Urine Color Urine Appearance Urine pH Ur Specific [place] Urine Protein Urine Ketones Urine Blood Urine Nitrate Urine Bilirubin Urine Urobilinogen Ur Leukocyte Esterase Urine Glucose Urine Ascorbic Acid Blood Type Antibody Screen Crossmatch 12/14/18 12/14/18 12/15/18 22:40 23:45 06:00 WBC RBC Hgb Hct MCV MCH MCHC RDW Plt Count MPV Neut % (Auto) Lymph % (Auto) [place] % (Auto) Eos % (Auto) Baso % (Auto) Absolute Neuts (auto) Absolute Lymphs (auto) Absolute Monos (auto) Absolute Eos (auto) Absolute Basos (auto) Absolute Nucleated RBC Nucleated RBC % APTT 69.1 H 67.4 H 86.4 H Sodium Potassium Chloride Carbon Dioxide Anion Gap BUN Creatinine Est GFR ( Amer) Est GFR (Non-Af Amer) BUN/Creatinine Ratio Glucose POC Glucose (mg/dL) Calcium Urine Color Urine Appearance Urine pH Ur Specific [place] Urine Protein Urine Ketones Urine Blood Urine Nitrate Urine Bilirubin Urine Urobilinogen Ur Leukocyte Esterase Urine Glucose Urine Ascorbic Acid Blood Type Antibody Screen Crossmatch 12/15/18 12/15/18 06:00 06:00 WBC 4.6 RBC 3.69 L Hgb 9.4 L Hct 29 L MCV 78 L MCH 26 L MCHC 33 RDW 20 H Plt Count 156 MPV 7.1 L Neut % (Auto) 64.7 Lymph % (Auto) 15.0 [place] % (Auto) 11.6 Eos % (Auto) 8.1 Baso % (Auto) 0.6 Absolute Neuts (auto) 3.0 Absolute Lymphs (auto) 0.7 L Absolute Monos (auto) 0.5 Absolute Eos (auto) 0.4 Absolute Basos (auto) 0 Absolute Nucleated RBC 0 Nucleated RBC % 0 APTT Sodium 132 L Potassium 4.6 Chloride 102 Carbon Dioxide 25 Anion Gap 5 BUN 11 Creatinine 0.57 Est GFR ( Amer) 126.5 Est GFR (Non-Af Amer) 104.6 BUN/Creatinine Ratio 19.3 Glucose 120 H POC Glucose (mg/dL) Calcium 8.4 L Urine Color Urine Appearance Urine pH Ur Specific [place] Urine Protein Urine Ketones Urine Blood Urine Nitrate Urine Bilirubin Urine Urobilinogen Ur Leukocyte Esterase Urine Glucose Urine Ascorbic Acid Blood Type Antibody Screen Crossmatch Assessment: 1. Grp B Strep L prosthetic knee infection 2. Grp B strep epidural vertebral osteodiskitis 3. s/p R BETINA and SQ collection 4. obesity 5. DVT on anticoagulation Plan: 1. continue ceftriaxone 2. Right hip aspiration for cell counts and cultures Discussed with Dr Castanon
[2018-12-15] MEDS: Lactobacillus Acidophilus* 1 TAB PO SCH (10:04)
[2018-12-15] MEDS: Magnesium Oxide TAB* 400 MG PO SCH (10:04)
[2018-12-15] MEDS: Cholecalciferol TAB* 1000 UNITS PO SCH (10:05)
[2018-12-15] MEDS: Ferrous Sulfate TAB* 325 MG PO SCH (10:05)
[2018-12-15] MEDS: Ascorbic Acid TAB* 500 MG PO SCH (10:05)
[2018-12-15] MEDS: Hydrocodone/Acetamin 10/325 1 TAB PO SCH ×3 (10:06→21:45)
[2018-12-15] MEDS: Heparin DRIP 25,000 UNITS(*) 25,000 UNITS/500 ML BAG IV SCH (10:56)
[2018-12-15] MEDS ORDERED: Vancomycin Trough Check NOTE FOLLOW UP ONE (11:30)
[2018-12-15 13:33] LABS: EGFR Non-African American 89.9 (>60)
--- NOTE | 2018-12-15 20:50 | PN ---
Subjective Date of Service: 12/15/18 Interval History: Patient denies chest pain or shortness of breath. Denies right hip pain or drainage. denies abd pain n/v/d. denies fever or chills Family History: Unchanged from Admission Social History: Unchanged from Admission Past Medical History: Unchanged from Admission Objective Active Medications: Acetaminophen (Tylenol Tab*) 650 mg PO Q6H PRN PRN Reason: PAIN Last Admin: 12/15/18 06:22 Dose: 650 mg Hydrocodone Bitart/Acetaminophen ([place] 10/325 (Nf)) 1 tab PO BEDTIME PRN PRN Reason: PAIN Hydrocodone Bitart/Acetaminophen ([place] 10/325 (Nf)) 1 tab PO TID [facility] Last Admin: 12/15/18 14:38 Dose: 1 tab Ascorbic Acid (Vitamin C Tab*) 500 mg PO DAILY [facility] Last Admin: 12/15/18 10:05 Dose: 500 mg Calcium Carbonate (Tums*) 500 mg PO TID PRN PRN Reason: DYSPEPSIA Cholecalciferol (Vitamin D Tab*) 5,000 units PO QAM [facility] Last Admin: 12/15/18 10:05 Dose: 5,000 units Dextrose (D50w Syringe 50 Ml*) 12.5 gm IV PUSH .FOR FS < 60 - SS PRN PRN Reason: FS < 60 Diphenhydramine HCl (Benadryl Po*) 25 mg PO Q6H PRN PRN Reason: PRURITIS Last Admin: 12/15/18 17:57 Dose: 25 mg Ferrous Sulfate (Ferrous Sulfate Tab*) 325 mg PO DAILY [facility] Last Admin: 12/15/18 10:05 Dose: 325 mg Heparin Sodium (Porcine) (Heparin Flush Picc/Ml/Cvc(*)) 1 - 3 ml IV FLUSH BID [facility]; Protocol Last Admin: 12/15/18 18:49 Dose: 1 ml Heparin Sodium (Porcine) (Heparin Vial(*)) 0 units IV .PER PROTOCOL [facility] Cefepime HCl (Maxipime 1 Gm In Dextrose Duplex (*)) 1 gm in 50 mls @ 100 mls/ hr IV Q12H [facility] Last Admin: 12/15/18 08:07 Dose: 100 mls/hr Heparin Sodium/Dextrose (Heparin Drip 25,000 Units(*)) 25,000 units in 500 mls @ 0 mls/hr IV PER RATE [facility]; Protocol Last Admin: 12/15/18 10:56 Dose: 25 mls/hr Insulin Human Lispro (Humalog*) 0 units SUBCUT ACHS [facility]; Protocol Last Admin: 12/15/18 18:18 Dose: 3 units Lactobacillus Rhamnosus (Lactobacillus Acidophilus*) 1 tab PO DAILY [facility] Last Admin: 12/15/18 10:04 Dose: 1 tab Lactulose (Lactulose*) 30 ml PO DAILY PRN PRN Reason: CONSTIPATION Magnesium Hydroxide (Milk Of Magnesia Liq*) 30 ml PO BID PRN PRN Reason: CONSTIPATION Magnesium Oxide (Magox 400 Tab*) 800 mg PO DAILY [facility] Last Admin: 12/15/18 10:04 Dose: 800 mg Morphine Sulfate (Morphine Vial*) 1 mg IV Q2H PRN PRN Reason: PAIN - SEVERE Last Admin: 12/14/18 10:42 Dose: 1 mg Nystatin (Nystatin Top Powder*) 1 applic TOPICAL BID PRN PRN Reason: ITCHING Last Admin: 12/14/18 13:08 Dose: 1 unit Ondansetron HCl (Zofran Inj*) 4 mg IV Q6H PRN PRN Reason: NAUSEA Pantoprazole Sodium (Protonix Tab (Nf)) 40 mg PO DAILY@0700 [facility] Last Admin: 12/15/18 06:07 Dose: 40 mg Vital Signs - 8 hr 12/15/18 12/15/18 12/15/18 14:38 15:58 16:20 Temperature 98.7 F Pulse Rate 71 72 Respiratory 18 18 18 Rate Blood Pressure 131/68 133/75 (mmHg) O2 Sat by Pulse 98 98 Oximetry 12/15/18 12/15/18 12/15/18 16:40 17:57 19:53 Temperature 97.6 F Pulse Rate 72 Respiratory 16 18 18 Rate Blood Pressure 123/50 (mmHg) O2 Sat by Pulse 98 Oximetry Oxygen Devices in Use Now: None Appearance: alert , resting in bed , no acute distress Eyes: No Scleral Icterus Ears/Nose/Mouth/Throat: Clear Oropharnyx, Mucous Membranes Moist Neck: NL Appearance and Movements; NL JVP Respiratory: Symmetrical Chest Expansion and Respiratory Effort, Clear to Auscultation Cardiovascular: NL Sounds; No Murmurs; No JVD, No Edema Abdominal: NL Sounds; No Tenderness; No Distention Extremities: No Clubbing, Cyanosis, - - left kne with healing surgical incision , slightly swollen, no drainage, right hip with healed surgical scar, no open areas , no drainage, bandaid at puncture site for hip aspiration no drainage.pedal pulses +2 Skin: No Rash or Ulcers Neurological: Alert and Oriented x 3 Nutrition: Taking PO's Result Diagrams: 12/15/18 06:00 12/15/18 12:45 Microbiology and Other Data: Microbiology 12/13/18 15:41 Aerobic Blood Culture - Preliminary Blood Venous No Growth Day 1 Anaerobic Blood Culture - Preliminary No Growth Day 1 12/13/18 15:34 Aerobic Blood Culture - Preliminary Blood Venous No Growth Day 1 Anaerobic Blood Culture - Preliminary No Growth Day 1 12/13/18 15:26 Gram Stain - Final Hip Right Wound Culture - Preliminary No Growth Day 1 Assess/Plan/Problems-Billing Assessment: Ms. 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 - Patient Problems (1) Right hip pain Current Visit: Yes Status: Acute Code(s): M25.551 - PAIN IN RIGHT HIP SNOMED Code(s): 48140017 Comment: Ortho following Right hip with no open areas, no open area - concern for joint infection - right hip joint fluid aspirated today - culture pending - may need possible wash out if fluid is infected- per ortho - right hip wound - no growth , normal eamon - ortho following - will continue cefepime until hip culture is back - if no new bacteria - will change to ceftriaxone as per ID recommendation (2) Anemia Current Visit: No Status: Acute Code(s): D64.9 - ANEMIA, UNSPECIFIED SNOMED Code(s): 137880328 Comment: - Likely anemia of chronic disease - transfused 2 unit of PRBC's- given the patient may need right hip wash out for joint infection and the need for anticoagulation for DVT in left leg - repeat CBC in the AM (3) Epidural abscess Current Visit: No Status: Acute Code(s): G06.2 - EXTRADURAL AND SUBDURAL ABSCESS, UNSPECIFIED SNOMED Code(s): 07228531 Comment: - s/p L3 and L4 decompressive laminectomies with evacuation of epidural abscess 10/31 secondary to groub B strep septicemia. - currently on cefepime - dressing change BID- keep dressing to back clean and dry (4) HTN (hypertension) Current Visit: No Status: Acute Code(s): I10 - ESSENTIAL (PRIMARY) HYPERTENSION SNOMED Code(s): 20742258 Comment: - stable - will continue to hold lisinopril and norvasc (5) Infection of prosthetic left knee joint Current Visit: No Status: Acute Code(s): T84.54XA - INFECT/INFLM REACTION DUE TO INTERNAL LEFT KNEE PROSTH, INIT SNOMED Code(s): 510728816 Comment: - S/p explant of infected hardware and antibiotic cement spacer placement on 11/02/18. - Continue NWB LLE with immobilizer. - continue pain medicaitons - continue on cefepime waiting for culture - blood cultures - no growth x 2 days - (6) Type II diabetes mellitus Current Visit: No Status: Acute Comment: - Continue lispro sliding scale. (7) DVT (deep venous thrombosis) Current Visit: Yes Status: Acute Code(s): I82.409 - ACUTE EMBOLISM AND THOMBOS UNSP DEEP VN UNSP LOWER EXTREMITY SNOMED Code(s): 598189370 Comment: POSITIVE for thrombus in the left common femoral, greater saphenous , and profunda femoris veins which were incompletely compressible. - Placed on heparin drip today as patient may need to go to surgery for right hip wash out on tuesday - can convert to eliquis if patient does not need surgery (8) DVT prophylaxis Current Visit: No Status: Acute Code(s): FRB9936 - SNOMED Code(s): 283776403 Comment: heparin drip (9) Full code status Current Visit: No Status: Acute Code(s): Z78.9 - OTHER SPECIFIED HEALTH STATUS SNOMED Code(s): 608481540 Status and Disposition: discharge when medically stable
[2018-12-16] MEDS: diPHENhydraMINE PO* 25 MG PO PRN ×4 (01:30→20:33)
[2018-12-16] MEDS: Pantoprazole TAB * 40 MG TAB PO SCH (06:05)
[2018-12-16 06:22] LABS: ABS Basophils 0.1 10^3/ul (0-0.2); ABS Eosinophils 0.4 10^3/ul (0-0.6); ABS Monocytes 0.5 10^3/ul (0-0.8); ABS Neutrophils 3.4 10^3/ul (1.5-7.7); ABS Nucleated RBC 0 10^3/ul; Eosinophil % 7.6 %; Hematocrit 29 % (35-47); Hemoglobin 9.3 g/dl (12.0-16.0); Lymphocyte % 18.1 %; Mean Corpuscular HGB Conc 32 g/dl (31-36); Mean Corpuscular Hemoglobin 25 pg (27-31); Mean Corpuscular Volume 79 fL (80-97); Nucleated Red Blood Cells % 0; Platelet Count 172 10^3/ul (150-450); Red Cell Distribution Width 20 % (10.5-15); White Blood Count 5.3 10^3/ul (3.5-10.8)
[2018-12-16 06:31] LABS: BUN/Creatinine Ratio 16.4 (8-20); Calcium 8.7 mg/dL (8.6-10.3); EGFR Non-African American 96.7 (>60); Potassium 4.6 mmol/L (3.5-5.0)
[2018-12-16] MEDS: Insulin LISPRO* 1 UNITS UNIT SUBCUT SCH ×4 (07:24→23:26)
[2018-12-16] MEDS: Hydrocodone/Acetamin 10/325 1 TAB PO SCH ×3 (07:52→21:00)
[2018-12-16] MEDS: Magnesium Oxide TAB* 400 MG PO SCH (07:52)
[2018-12-16] MEDS: Cholecalciferol TAB* 1000 UNITS PO SCH (07:52)
[2018-12-16] MEDS: Lactobacillus Acidophilus* 1 TAB PO SCH (07:52)
[2018-12-16] MEDS: Ferrous Sulfate TAB* 325 MG PO SCH (07:52)
[2018-12-16] MEDS: Cefepime 1 GM in Dextrose(*) 1 GM/50 ML BAG IV SCH ×2 (07:53→21:05)
[2018-12-16] MEDS: Ascorbic Acid TAB* 500 MG PO SCH (07:53)
--- NOTE | 2018-12-16 09:08 | PN ---
Progress Note - Progress Note Date of Service: 12/16/18 SOAP: Subjective: Pt. is alert, nad. Denies right hip pain. Objective: RLE - inc healed, no drainage, no warmth, no erythema. distally nvi. Vital Signs: Temp Pulse Resp BP Pulse Ox 98.0 F 64 16 115/49 97 12/16/18 03:55 12/16/18 03:55 12/16/18 07:52 12/16/18 03:55 12/16/18 03:55 Laboratory Results - last 24 hr 12/14/18 12/15/18 12/15/18 05:50 12:45 12:45 WBC RBC Hgb Hct MCV MCH MCHC RDW Plt Count MPV Neut % (Auto) Lymph % (Auto) [place] % (Auto) Eos % (Auto) Baso % (Auto) Absolute Neuts (auto) Absolute Lymphs (auto) Absolute Monos (auto) Absolute Eos (auto) Absolute Basos (auto) Absolute Nucleated RBC Nucleated RBC % APTT 66.8 H Sodium Potassium Chloride Carbon Dioxide Anion Gap BUN 10 Creatinine 0.65 Est GFR ( Amer) 108.7 Est GFR (Non-Af Amer) 89.9 BUN/Creatinine Ratio Glucose POC Glucose (mg/dL) Calcium Blood Type A Positive Antibody Screen Negative Crossmatch See Detail 12/15/18 12/15/18 12/15/18 12:55 18:05 18:45 WBC RBC Hgb Hct MCV MCH MCHC RDW Plt Count MPV Neut % (Auto) Lymph % (Auto) [place] % (Auto) Eos % (Auto) Baso % (Auto) Absolute Neuts (auto) Absolute Lymphs (auto) Absolute Monos (auto) Absolute Eos (auto) Absolute Basos (auto) Absolute Nucleated RBC Nucleated RBC % APTT 65.4 H Sodium Potassium Chloride Carbon Dioxide Anion Gap BUN Creatinine Est GFR ( Amer) Est GFR (Non-Af Amer) BUN/Creatinine Ratio Glucose POC Glucose (mg/dL) 159 H 193 H Calcium Blood Type Antibody Screen Crossmatch 12/16/18 12/16/18 06:00 06:00 WBC 5.3 RBC 3.70 L Hgb 9.3 L Hct 29 L MCV 79 L MCH 25 L MCHC 32 RDW 20 H Plt Count 172 MPV 7.0 L Neut % (Auto) 63.9 Lymph % (Auto) 18.1 [place] % (Auto) 9.3 Eos % (Auto) 7.6 Baso % (Auto) 1.1 Absolute Neuts (auto) 3.4 Absolute Lymphs (auto) 1.0 Absolute Monos (auto) 0.5 Absolute Eos (auto) 0.4 Absolute Basos (auto) 0.1 Absolute Nucleated RBC 0 Nucleated RBC % 0 APTT Sodium 134 L Potassium 4.6 Chloride 103 Carbon Dioxide 25 Anion Gap 6 BUN 10 Creatinine 0.61 Est GFR ( Amer) 117.0 Est GFR (Non-Af Amer) 96.7 BUN/Creatinine Ratio 16.4 Glucose 112 H POC Glucose (mg/dL) Calcium 8.7 Blood Type Antibody Screen Crossmatch Assessment: 73 yo pt. with multiple infections. Admitted for LLE DVT and to exclude R hip infection. Plan: IR aspirated subcutaneous fluid left hip, reported no fluid in hip joint. Plan to cancel any surgery on R hip for now, will follow incision. Cont. IV abx wbat rle, nwb lle
--- NOTE | 2018-12-16 17:47 | PN ---
Subjective Date of Service: 12/16/18 Interval History: Patient seen this morning. She is in good spirit. taking po. no complains. Available records noted. currently prelim report from the joint aspirate is negative. Will keep her on heparin till am and if culture remains negative and if surgery is not to be performed will transition her heparin to oral Eliquis/ Pradaxa Family History: Unchanged from Admission Social History: Unchanged from Admission Past Medical History: Unchanged from Admission Objective Active Medications: Acetaminophen (Tylenol Tab*) 650 mg PO Q6H PRN PRN Reason: PAIN Last Admin: 12/15/18 06:22 Dose: 650 mg Hydrocodone Bitart/Acetaminophen ([place] 10/325 (Nf)) 1 tab PO BEDTIME PRN PRN Reason: PAIN Last Admin: 12/16/18 01:33 Dose: 1 tab Hydrocodone Bitart/Acetaminophen ([place] 10/325 (Nf)) 1 tab PO TID [facility] Last Admin: 12/16/18 13:51 Dose: 1 tab Ascorbic Acid (Vitamin C Tab*) 500 mg PO DAILY [facility] Last Admin: 12/16/18 07:53 Dose: 500 mg Calcium Carbonate (Tums*) 500 mg PO TID PRN PRN Reason: DYSPEPSIA Cholecalciferol (Vitamin D Tab*) 5,000 units PO QAM [facility] Last Admin: 12/16/18 07:52 Dose: 5,000 units Dextrose (D50w Syringe 50 Ml*) 12.5 gm IV PUSH .FOR FS < 60 - SS PRN PRN Reason: FS < 60 Diphenhydramine HCl (Benadryl Po*) 25 mg PO Q6H PRN PRN Reason: PRURITIS Last Admin: 12/16/18 13:52 Dose: 25 mg Ferrous Sulfate (Ferrous Sulfate Tab*) 325 mg PO DAILY [facility] Last Admin: 12/16/18 07:52 Dose: 325 mg Heparin Sodium (Porcine) (Heparin Flush Picc/Ml/Cvc(*)) 1 - 3 ml IV FLUSH BID [facility]; Protocol Last Admin: 12/16/18 07:40 Dose: Not Given Heparin Sodium (Porcine) (Heparin Vial(*)) 0 units IV .PER PROTOCOL [facility] Cefepime HCl (Maxipime 1 Gm In Dextrose Duplex (*)) 1 gm in 50 mls @ 100 mls/ hr IV Q12H [facility] Last Admin: 12/16/18 07:53 Dose: 100 mls/hr Heparin Sodium/Dextrose (Heparin Drip 25,000 Units(*)) 25,000 units in 500 mls @ 0 mls/hr IV PER RATE [facility]; Protocol Last Admin: 12/15/18 10:56 Dose: 25 mls/hr Insulin Human Lispro (Humalog*) 0 units SUBCUT ACHS [facility]; Protocol Last Admin: 12/16/18 13:52 Dose: 3 units Lactobacillus Rhamnosus (Lactobacillus Acidophilus*) 1 tab PO DAILY [facility] Last Admin: 12/16/18 07:52 Dose: 1 tab Lactulose (Lactulose*) 30 ml PO DAILY PRN PRN Reason: CONSTIPATION Magnesium Hydroxide (Milk Of Magnesia Liq*) 30 ml PO BID PRN PRN Reason: CONSTIPATION Magnesium Oxide (Magox 400 Tab*) 800 mg PO DAILY [facility] Last Admin: 12/16/18 07:52 Dose: 800 mg Morphine Sulfate (Morphine Vial*) 1 mg IV Q2H PRN PRN Reason: PAIN - SEVERE Last Admin: 12/14/18 10:42 Dose: 1 mg Nystatin (Nystatin Top Powder*) 1 applic TOPICAL BID PRN PRN Reason: ITCHING Last Admin: 12/14/18 13:08 Dose: 1 unit Ondansetron HCl (Zofran Inj*) 4 mg IV Q6H PRN PRN Reason: NAUSEA Pantoprazole Sodium (Protonix Tab (Nf)) 40 mg PO DAILY@0700 [facility] Last Admin: 12/16/18 06:05 Dose: 40 mg Vital Signs - 8 hr 12/16/18 12/16/18 12/16/18 10:00 11:30 12:00 Temperature 97.4 F Pulse Rate 68 Respiratory 16 18 16 Rate Blood Pressure 117/49 (mmHg) O2 Sat by Pulse 96 Oximetry 12/16/18 12/16/18 12/16/18 13:51 13:52 15:28 Temperature 98.3 F Pulse Rate 67 Respiratory 16 16 18 Rate Blood Pressure 122/55 (mmHg) O2 Sat by Pulse 99 Oximetry 12/16/18 16:07 Temperature Pulse Rate Respiratory 16 Rate Blood Pressure (mmHg) O2 Sat by Pulse Oximetry Oxygen Devices in Use Now: None Appearance: Awake, alert. no distress. Obese Eyes: No Scleral Icterus, - Ears/Nose/Mouth/Throat: NL Teeth, Lips, Gums, Clear Oropharnyx Neck: NL Appearance and Movements; NL JVP, Trachea Midline Respiratory: Symmetrical Chest Expansion and Respiratory Effort, Clear to Auscultation Cardiovascular: NL Sounds; No Murmurs; No JVD Abdominal: NL Sounds; No Tenderness; No Distention Skin: No Rash or Ulcers Neurological: Alert and Oriented x 3 Result Diagrams: 12/16/18 06:00 12/16/18 06:00 Microbiology and Other Data: Microbiology 12/13/18 15:41 Aerobic Blood Culture - Preliminary Blood Venous No Growth Day 1 Anaerobic Blood Culture - Preliminary No Growth Day 1 12/13/18 15:34 Aerobic Blood Culture - Preliminary Blood Venous No Growth Day 1 Anaerobic Blood Culture - Preliminary No Growth Day 1 12/13/18 15:26 Gram Stain - Final Hip Right Wound Culture - Preliminary No Growth Day 1 Assess/Plan/Problems-Billing Assessment: Ms. 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 - Patient Problems (1) DVT (deep venous thrombosis) Current Visit: Yes Status: Acute Code(s): I82.409 - ACUTE EMBOLISM AND THOMBOS UNSP DEEP VN UNSP LOWER EXTREMITY SNOMED Code(s): 225148976 Comment: - POSITIVE for thrombus in the left common femoral, greater saphenous, and profunda femoris veins which were incompletely compressible. - Placed on heparin drip day # 2 as patient may need to go to surgery for right hip wash out - can convert to eliquis if patient does not need surgery which will decide on pending final report of the wound cultures (2) Right hip pain Current Visit: Yes Status: Acute Code(s): M25.551 - PAIN IN RIGHT HIP SNOMED Code(s): 32483946 Comment: - Ortho following - Right hip with no open areas, no open area, there was concern for joint infection. s/p right hip joint fluid aspirated 12/14/18 - prelim culture so far negative. If remains negative than patient may not require wash out. and in that case we can transition from heparin drip to Pradaxa or eliquis - will continue cefepime until hip culture is back - if no new bacteria - will change to ceftriaxone as per ID recommendation (3) Anemia Current Visit: No Status: Acute Code(s): D64.9 - ANEMIA, UNSPECIFIED SNOMED Code(s): 782682486 Comment: - Likely anemia of chronic disease - transfused 2 unit of PRBC's- given the patient may need right hip wash out for joint infection and the need for anticoagulation for DVT in left leg - repeat CBC daily (4) HTN (hypertension) Current Visit: No Status: Acute Code(s): I10 - ESSENTIAL (PRIMARY) HYPERTENSION SNOMED Code(s): 94535924 Comment: - stable - will continue to hold lisinopril but will resume norvasc in am (5) History of total right hip arthroplasty Current Visit: No Status: Acute Code(s): Z96.641 - PRESENCE OF RIGHT ARTIFICIAL HIP JOINT SNOMED Code(s): 040025095930 Comment: - Surgery 08/17/18. - Hgb up to 7.2 after one unit PRBC, suspect significantly related to intravascular fluid overload with SIADH. Patient asymptomatic. - Pain well controlled, continue bowel regimen. - Continue PT and OT. (6) Infection of prosthetic left knee joint Current Visit: No Status: Acute Code(s): T84.54XA - INFECT/INFLM REACTION DUE TO INTERNAL LEFT KNEE PROSTH, INIT SNOMED Code(s): 552752318 Comment: - S/p explant of infected left knee hardware and antibiotic cement spacer placement on 11/02/18. - Continue NWB LLE with immobilizer. - continue pain medicaitons - continue on cefepime waiting for culture - blood cultures - no growth x 2 days - (7) Type II diabetes mellitus Current Visit: No Status: Acute Comment: - Continue lispro sliding scale. (8) DVT prophylaxis Current Visit: No Status: Acute Code(s): LMQ6839 - SNOMED Code(s): 716291806 Comment: heparin drip Status and Disposition: discharge when medically stable
[2018-12-16] MEDS: Nystatin TOP POWDER* 15 GM BTL TOPICAL PRN (21:08)
[2018-12-17] MEDS: diPHENhydraMINE PO* 25 MG PO PRN ×2 (03:56→18:34)
[2018-12-17] MEDS: Heparin DRIP 25,000 UNITS(*) 25,000 UNITS/500 ML BAG IV SCH (06:37)
[2018-12-17] MEDS: Pantoprazole TAB * 40 MG TAB PO SCH (06:51)
[2018-12-17] MEDS: Insulin LISPRO* 1 UNITS UNIT SUBCUT SCH ×4 (08:14→21:02)
[2018-12-17] MEDS: Cefepime 1 GM in Dextrose(*) 1 GM/50 ML BAG IV SCH ×2 (08:24→20:33)
[2018-12-17 08:35] LABS: ABS Basophils 0.1 10^3/ul (0-0.2); ABS Eosinophils 0.3 10^3/ul (0-0.6); ABS Lymphocytes 0.8 10^3/ul (1.0-4.8); ABS Monocytes 0.5 10^3/ul (0-0.8); ABS Neutrophils 3.8 10^3/ul (1.5-7.7); ABS Nucleated RBC 0 10^3/ul; Eosinophil % 5.9 %; Hematocrit 30 % (35-47); Hemoglobin 9.4 g/dl (12.0-16.0); Lymphocyte % 13.9 %; Mean Corpuscular HGB Conc 32 g/dl (31-36); Mean Corpuscular Hemoglobin 25 pg (27-31); Mean Corpuscular Volume 79 fL (80-97); Mean Platelet Volume 6.7 fL (7.4-10.4); Nucleated Red Blood Cells % 0; Platelet Count 177 10^3/ul (150-450); Red Blood Count 3.75 10^6/ul (4.00-5.40); Red Cell Distribution Width 21 % (10.5-15); White Blood Count 5.5 10^3/ul (3.5-10.8)
[2018-12-17 08:56] LABS: Calcium 8.8 mg/dL (8.6-10.3); EGFR Non-African American 98.5 (>60); Magnesium 1.6 mg/dL (1.9-2.7); Phosphorus 4.7 mg/dL (2.5-5.0); Potassium 4.5 mmol/L (3.5-5.0)
--- NOTE | 2018-12-17 09:21 | PN ---
Progress Note - Progress Note Date of Service: 12/17/18 SOAP: Subjective: [Pt denies pain R hip. Pain in L knee fluctuates. Has been sitting on edge of bed - not OOB to this point. Denies CP, SOB, Nausea.] Objective: [A and O x 3 , NAD R hip wound with bandaid - no drainage at wound, mild drainage on bandaid. No erythema. distally nvi L knee in immobilizer, inc healing well. distally nvi Vital Signs: Temp Pulse Resp BP Pulse Ox 97.5 F 69 18 126/57 99 12/17/18 07:50 12/17/18 07:50 12/17/18 08:00 12/17/18 07:50 12/17/18 07:50 Laboratory Results - last 24 hr 12/14/18 12/15/18 12/16/18 05:50 21:36 12:10 WBC RBC Hgb Hct MCV MCH MCHC RDW Plt Count MPV Neut % (Auto) Lymph % (Auto) [place] % (Auto) Eos % (Auto) Baso % (Auto) Absolute Neuts (auto) Absolute Lymphs (auto) Absolute Monos (auto) Absolute Eos (auto) Absolute Basos (auto) Absolute Nucleated RBC Nucleated RBC % APTT Sodium Potassium Chloride Carbon Dioxide Anion Gap BUN Creatinine Est GFR ( Amer) Est GFR (Non-Af Amer) BUN/Creatinine Ratio Glucose POC Glucose (mg/dL) 150 H 198 H Calcium Phosphorus Magnesium Crossmatch See Detail 12/16/18 12/16/18 12/16/18 16:51 18:00 23:01 WBC RBC Hgb Hct MCV MCH MCHC RDW Plt Count MPV Neut % (Auto) Lymph % (Auto) [place] % (Auto) Eos % (Auto) Baso % (Auto) Absolute Neuts (auto) Absolute Lymphs (auto) Absolute Monos (auto) Absolute Eos (auto) Absolute Basos (auto) Absolute Nucleated RBC Nucleated RBC % APTT 86.0 H Sodium Potassium Chloride Carbon Dioxide Anion Gap BUN Creatinine Est GFR ( Amer) Est GFR (Non-Af Amer) BUN/Creatinine Ratio Glucose POC Glucose (mg/dL) 134 H 195 H Calcium Phosphorus Magnesium Crossmatch 12/17/18 12/17/18 12/17/18 02:30 07:28 08:25 WBC RBC Hgb Hct MCV MCH MCHC RDW Plt Count MPV Neut % (Auto) Lymph % (Auto) [place] % (Auto) Eos % (Auto) Baso % (Auto) Absolute Neuts (auto) Absolute Lymphs (auto) Absolute Monos (auto) Absolute Eos (auto) Absolute Basos (auto) Absolute Nucleated RBC Nucleated RBC % APTT 62.6 H Sodium 132 L Potassium 4.5 Chloride 100 L Carbon Dioxide 25 Anion Gap 7 BUN 9 Creatinine 0.60 Est GFR ( Amer) 119.2 Est GFR (Non-Af Amer) 98.5 BUN/Creatinine Ratio 15.0 Glucose 128 H POC Glucose (mg/dL) 134 H Calcium 8.8 Phosphorus 4.7 Magnesium 1.6 L Crossmatch 12/17/18 12/17/18 08:25 08:25 WBC 5.5 RBC 3.75 L Hgb 9.4 L Hct 30 L MCV 79 L MCH 25 L MCHC 32 RDW 21 H Plt Count 177 MPV 6.7 L Neut % (Auto) 69.7 Lymph % (Auto) 13.9 [place] % (Auto) 9.6 Eos % (Auto) 5.9 Baso % (Auto) 0.9 Absolute Neuts (auto) 3.8 Absolute Lymphs (auto) 0.8 L Absolute Monos (auto) 0.5 Absolute Eos (auto) 0.3 Absolute Basos (auto) 0.1 Absolute Nucleated RBC 0 Nucleated RBC % 0 APTT 57.7 H Sodium Potassium Chloride Carbon Dioxide Anion Gap BUN Creatinine Est GFR ( Amer) Est GFR (Non-Af Amer) BUN/Creatinine Ratio Glucose POC Glucose (mg/dL) Calcium Phosphorus Magnesium Crossmatch ] Assessment: [73 yo female s/p epidural abscess I and D, s/p L TKA infection with explant and antibiotic spacer, unlikely R hip infection at this time] Plan: [Follow R hip incision Pain management No surgery planned at this time Con't. abx PT/OT - WBAT R LE, NWB LLE]
[2018-12-17] MEDS: Ascorbic Acid TAB* 500 MG PO SCH (09:55)
[2018-12-17] MEDS: amLODIPine TAB* 5 MG PO SCH (09:55)
[2018-12-17] MEDS: Hydrocodone/Acetamin 10/325 1 TAB PO SCH ×3 (09:55→21:02)
[2018-12-17] MEDS: Lactobacillus Acidophilus* 1 TAB PO SCH (09:55)
[2018-12-17] MEDS: Ferrous Sulfate TAB* 325 MG PO SCH (09:55)
[2018-12-17] MEDS: Apixaban* 5 MG TAB PO SCH ×2 (09:55→21:01)
[2018-12-17] MEDS: Cholecalciferol TAB* 1000 UNITS PO SCH (09:56)
[2018-12-17] MEDS: Magnesium Oxide TAB* 400 MG PO SCH (09:56)
[2018-12-17] MEDS: Nystatin TOP POWDER* 15 GM BTL TOPICAL PRN (12:34)
--- NOTE | 2018-12-17 14:05 | PN ---
Subjective Date of Service: 12/17/18 Interval History: Patient seen this morning. not in any acute distress. Orthopedic note appreciated. Not planing for any surgery at this time as the culture from her wound did not shows any infections or organism. She was cleared by ortho to be discharged. She is on heparin. I will discontinue and will transition to Eliquis for her new left lower extremety DVT diagnosed on this admission. Her H/H stable after her 2 units transfusion despite her Heparin drip. The plan is to return to her Sub Acute rehab ([facility]) in am on eliquis to complete full dose DVT treatment and than transition to eliquis DVT prophylactic dose. CBC ordered for am in H/H stable she may return to complete her original course of antibiotics Social History: Unchanged from Admission Past Medical History: Unchanged from Admission Objective Active Medications: Acetaminophen (Tylenol Tab*) 650 mg PO Q6H PRN PRN Reason: PAIN Last Admin: 12/15/18 06:22 Dose: 650 mg Hydrocodone Bitart/Acetaminophen ([place] 10/325 (Nf)) 1 tab PO BEDTIME PRN PRN Reason: PAIN Last Admin: 12/16/18 01:33 Dose: 1 tab Hydrocodone Bitart/Acetaminophen ([place] 10/325 (Nf)) 1 tab PO TID [facility] Last Admin: 12/17/18 13:49 Dose: 1 tab Amlodipine Besylate (Norvasc Tab*) 10 mg PO DAILY [facility] Last Admin: 12/17/18 09:55 Dose: 10 mg Apixaban (Eliquis*) 5 mg PO BID [facility] Last Admin: 12/17/18 09:55 Dose: 5 mg Ascorbic Acid (Vitamin C Tab*) 500 mg PO DAILY [facility] Last Admin: 12/17/18 09:55 Dose: 500 mg Calcium Carbonate (Tums*) 500 mg PO TID PRN PRN Reason: DYSPEPSIA Cholecalciferol (Vitamin D Tab*) 5,000 units PO QAM [facility] Last Admin: 12/17/18 09:56 Dose: 5,000 units Dextrose (D50w Syringe 50 Ml*) 12.5 gm IV PUSH .FOR FS < 60 - SS PRN PRN Reason: FS < 60 Diphenhydramine HCl (Benadryl Po*) 25 mg PO Q6H PRN PRN Reason: PRURITIS Last Admin: 12/17/18 03:56 Dose: 25 mg Ferrous Sulfate (Ferrous Sulfate Tab*) 325 mg PO DAILY [facility] Last Admin: 12/17/18 09:55 Dose: 325 mg Heparin Sodium (Porcine) (Heparin Flush Picc/Ml/Cvc(*)) 1 - 3 ml IV FLUSH BID [facility]; Protocol Last Admin: 12/17/18 09:14 Dose: 1 ml Cefepime HCl (Maxipime 1 Gm In Dextrose Duplex (*)) 1 gm in 50 mls @ 100 mls/ hr IV Q12H [facility] Last Admin: 12/17/18 08:24 Dose: 100 mls/hr Magnesium Sulfate/Dextrose (Magnesium Sulfate 1 Gm Iv*) 1 gm in 100 mls @ 200 mls/hr IV ONCE ONE Stop: 12/17/18 14:59 Insulin Human Lispro (Humalog*) 0 units SUBCUT ACHS [facility]; Protocol Last Admin: 12/17/18 12:33 Dose: 3 units Lactobacillus Rhamnosus (Lactobacillus Acidophilus*) 1 tab PO DAILY [facility] Last Admin: 12/17/18 09:55 Dose: 1 tab Lactulose (Lactulose*) 30 ml PO DAILY PRN PRN Reason: CONSTIPATION Magnesium Hydroxide (Milk Of Magnesia Liq*) 30 ml PO BID PRN PRN Reason: CONSTIPATION Magnesium Oxide (Magox 400 Tab*) 800 mg PO DAILY [facility] Last Admin: 12/17/18 09:56 Dose: 800 mg Morphine Sulfate (Morphine Vial*) 1 mg IV Q2H PRN PRN Reason: PAIN - SEVERE Last Admin: 12/14/18 10:42 Dose: 1 mg Nystatin (Nystatin Top Powder*) 1 applic TOPICAL BID PRN PRN Reason: ITCHING Last Admin: 12/17/18 12:34 Dose: 1 applic Ondansetron HCl (Zofran Inj*) 4 mg IV Q6H PRN PRN Reason: NAUSEA Pantoprazole Sodium (Protonix Tab (Nf)) 40 mg PO DAILY@0700 [facility] Last Admin: 12/17/18 06:51 Dose: 40 mg Vital Signs - 8 hr 12/17/18 12/17/18 12/17/18 07:00 07:50 08:00 Temperature 97.5 F Pulse Rate 69 Respiratory 16 16 18 Rate Blood Pressure 126/57 (mmHg) O2 Sat by Pulse 99 Oximetry 12/17/18 12/17/1812/17/19 09:55 11:19 11:55 Temperature 98.0 F Pulse Rate 88 Respiratory 18 16 16 Rate Blood Pressure 121/70 (mmHg) O2 Sat by Pulse 98 Oximetry 12/17/18 13:49 Temperature Pulse Rate Respiratory 18 Rate Blood Pressure (mmHg) O2 Sat by Pulse Oximetry Oxygen Devices in Use Now: None Appearance: Awake, Alert. no distress Eyes: No Scleral Icterus, PERRLA, - - EOMI Ears/Nose/Mouth/Throat: NL Teeth, Lips, Gums Neck: NL Appearance and Movements; NL JVP, Trachea Midline Respiratory: Symmetrical Chest Expansion and Respiratory Effort, Clear to Auscultation Cardiovascular: NL Sounds; No Murmurs; No JVD, RRR Abdominal: NL Sounds; No Tenderness; No Distention Extremities: - - Left lower leg in knee immobilizer; rigth hip no open wound Result Diagrams: 12/17/18 08:25 12/17/18 08:25 Microbiology and Other Data: Microbiology 12/13/18 15:41 Aerobic Blood Culture - Preliminary Blood Venous No Growth Day 1 Anaerobic Blood Culture - Preliminary No Growth Day 1 12/13/18 15:34 Aerobic Blood Culture - Preliminary Blood Venous No Growth Day 1 Anaerobic Blood Culture - Preliminary No Growth Day 1 12/13/18 15:26 Gram Stain - Final Hip Right Wound Culture - Preliminary No Growth Day 1 Assess/Plan/Problems-Billing Assessment: Ms. 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 - Patient Problems (1) DVT (deep venous thrombosis) Current Visit: Yes Status: Acute Code(s): I82.409 - ACUTE EMBOLISM AND THOMBOS UNSP DEEP VN UNSP LOWER EXTREMITY SNOMED Code(s): 876384730 Comment: - POSITIVE for thrombus in the left common femoral, greater saphenous, and profunda femoris veins which were incompletely compressible. - Placed on heparin drip day # 3 as patient was suppose to surgery for right hip wash out. However, fluid aspirate from her right hip did not show any growth. Hence surgery canceled. She will be placed on Eliquis and to be discharged in am if her H/H stable (2) Right hip pain Current Visit: Yes Status: Acute Code(s): M25.551 - PAIN IN RIGHT HIP SNOMED Code(s): 42385839 Comment: - Ortho following - Right hip with no open areas, there was concern for joint infection. s/p right hip joint fluid aspirated 12/14/18 - culture so far negative. Surgery cancelled. - I will continue cefepime until hip culture is back - if no new bacteria - will change to ceftriaxone to complete her 45 days course as of her last discharge summary from 11/10/18. This means she will only have anywhere between 8-10 days left from today. will need to revew with ID regarding final Abx recommendation. (3) Anemia Current Visit: No Status: Acute Code(s): D64.9 - ANEMIA, UNSPECIFIED SNOMED Code(s): 960103549 Comment: - Likely anemia of chronic disease. However, on admission her Hct was 24 hrs and hgb was 7.9! Given the fact she was placed on heparin, she was given 2 units in anticipation she was going for surgery and starting heparin drip. Her H/H remained stable after the transfusion and surgery was cancelled - Today 12/17/18 her H/H 9.4/30! no need for transfusion today. I will recheck in am and if remain stable she can be discharged (4) HTN (hypertension) Current Visit: No Status: Acute Code(s): I10 - ESSENTIAL (PRIMARY) HYPERTENSION SNOMED Code(s): 78183239 Comment: - stable - will continue to hold lisinopril I resumed norvasc (5) History of total right hip arthroplasty Current Visit: No Status: Acute Code(s): Z96.641 - PRESENCE OF RIGHT ARTIFICIAL HIP JOINT SNOMED Code(s): 654956953959 (6) Infection of prosthetic left knee joint Current Visit: No Status: Acute Code(s): T84.54XA - INFECT/INFLM REACTION DUE TO INTERNAL LEFT KNEE PROSTH, INIT SNOMED Code(s): 901693497 Comment: - S/p explant of infected left knee hardware and antibiotic cement spacer placement on 11/02/18. - Continue NWB LLE with immobilizer. - continue pain medicaitons (7) Type II diabetes mellitus Current Visit: No Status: Acute Comment: - Continue lispro sliding scale. (8) DVT prophylaxis Current Visit: No Status: Acute Code(s): MJH2569 - SNOMED Code(s): 654277003 Comment: - now on Eliquis Status and Disposition: discharge when medically stable
[2018-12-17] MEDS ORDERED: Magnesium Sulfate 1 GM IV* 1 GM/100 ML BAG IV ONE (14:30)
[2018-12-18] MEDS: Nystatin TOP POWDER* 15 GM BTL TOPICAL PRN (00:03)
[2018-12-18] MEDS: diPHENhydraMINE PO* 25 MG PO PRN ×2 (00:57→08:25)
[2018-12-18 05:31] LABS: ABS Basophils 0 10^3/ul (0-0.2); ABS Eosinophils 0.4 10^3/ul (0-0.6); ABS Lymphocytes 0.8 10^3/ul (1.0-4.8); ABS Monocytes 0.6 10^3/ul (0-0.8); ABS Neutrophils 3.6 10^3/ul (1.5-7.7); ABS Nucleated RBC 0 10^3/ul; Eosinophil % 6.6 %; Hematocrit 29 % (35-47); Hemoglobin 9.4 g/dl (12.0-16.0); Mean Corpuscular HGB Conc 33 g/dl (31-36); Mean Corpuscular Hemoglobin 26 pg (27-31); Mean Corpuscular Volume 79 fL (80-97); Mean Platelet Volume 6.6 fL (7.4-10.4); Nucleated Red Blood Cells % 0; Platelet Count 190 10^3/ul (150-450); Red Blood Count 3.65 10^6/ul (4.00-5.40); Red Cell Distribution Width 21 % (10.5-15); White Blood Count 5.4 10^3/ul (3.5-10.8)
[2018-12-18 05:53] LABS: BUN/Creatinine Ratio 15.9 (8-20); EGFR Non-African American 93.2 (>60); Magnesium 1.8 mg/dL (1.9-2.7); Phosphorus 4.2 mg/dL (2.5-5.0); Potassium 4.3 mmol/L (3.5-5.0)
[2018-12-18] MEDS: Cefepime 1 GM in Dextrose(*) 1 GM/50 ML BAG IV SCH (08:24)
[2018-12-18] MEDS: Cholecalciferol TAB* 1000 UNITS PO SCH (08:24)
[2018-12-18] MEDS: Lactobacillus Acidophilus* 1 TAB PO SCH (08:25)
[2018-12-18] MEDS: Apixaban* 5 MG TAB PO SCH (08:25)
[2018-12-18] MEDS: Ferrous Sulfate TAB* 325 MG PO SCH (08:25)
[2018-12-18] MEDS: amLODIPine TAB* 5 MG PO SCH (08:25)
[2018-12-18] MEDS: Ascorbic Acid TAB* 500 MG PO SCH (08:25)
[2018-12-18] MEDS: Magnesium Oxide TAB* 400 MG PO SCH (08:25)
[2018-12-18] MEDS: Insulin LISPRO* 1 UNITS UNIT SUBCUT SCH ×2 (08:26→13:57)
[2018-12-18] MEDS: Pantoprazole TAB * 40 MG TAB PO SCH (08:40)
[2018-12-18] MEDS: Hydrocodone/Acetamin 10/325 1 TAB PO SCH ×2 (09:33→14:59)
[2018-12-18 12:05] VITALS: BP 122/55
--- NOTE | 2018-12-18 12:47 | PN ---
Progress Note - Progress Note Date of Service: 12/18/18 SOAP: Subjective: []Patient seen and examined at bedside today. Denies right hip pain. Denies CP, OSB, dizziness, nausea. Objective: []General: Well appearing, NAD RLE: Right hip incision is well healed without drainage or erythema, nontender to palpation, flexion and extension of the hip is entirely nonpainful LLE: Left knee incision well healed, no erythema or drainage, nontender to palpation, imobilizer in place Assessment: []73 yo female s/p epidural abscess I and D, s/p L TKA infection with explant and antibiotic spacer, unlikely R hip infection at this time] Plan: [Follow R hip incision. No surgery planned at this time Con't. abx PT/OT - WBAT R LE, NWB LLE Vital Signs Temp 98.4 F 12/18/18 11:12 Pulse 78 12/18/18 11:12 Resp 16 12/18/18 12:14 BP 122/55 12/18/18 11:12 Pulse Ox 97 12/18/18 11:12 Intake & Output 12/17/18 12/18/18 12/18/18 18:59 06:59 18:59 Intake Total 1726 555 210 Output Total 1100 1250 1300 Balance 626 -695 -1090 Intake: IV Fluids 266 55 ABX - CEFEPIME 55 55 NS (0.9%) 40 hep 66 mag 105 Oral 1460 500 210 Output: Urine 1100 1250 1300 Other: Estimated Void Large # Bowel Movements 1 Estimated Stool Amount Medium # Voids 1 Laboratory Last Values WBC 5.4 10^3/ul (3.5-10.8) 12/18/18 05:04 RBC 3.65 10^6/ul (4.00-5.40) L 12/18/18 05:04 Hgb 9.4 g/dl (12.0-16.0) L 12/18/18 05:04 Hct 29 % (35-47) L 12/18/18 05:04 MCV 79 fL (80-97) L 12/18/18 05:04 MCH 26 pg (27-31) L 12/18/18 05:04 MCHC 33 g/dl (31-36) 12/18/18 05:04 RDW 21 % (10.5-15) H 12/18/18 05:04 Plt Count 190 10^3/ul (150-450) 12/18/18 05:04 MPV 6.6 fL (7.4-10.4) L 12/18/18 05:04 Neut % (Auto) 67.0 % 12/18/18 05:04 Lymph % (Auto) 15.0 % 12/18/18 05:04 [place] % (Auto) 10.6 % 12/18/18 05:04 Eos % (Auto) 6.6 % 12/18/18 05:04 Baso % (Auto) 0.8 % 12/18/18 05:04 Absolute Neuts (auto) 3.6 10^3/ul (1.5-7.7) 12/18/18 05:04 Absolute Lymphs (auto) 0.8 10^3/ul (1.0-4.8) L 12/18/18 05:04 Absolute Monos (auto) 0.6 10^3/ul (0-0.8) 12/18/18 05:04 Absolute Eos (auto) 0.4 10^3/ul (0-0.6) 12/18/18 05:04 Absolute Basos (auto) 0 10^3/ul (0-0.2) 12/18/18 05:04 Absolute Nucleated RBC 0 10^3/ul 12/18/18 05:04 Nucleated RBC % 0 12/18/18 05:04 ESR 43 mm/Hr (0-40) H 12/13/18 15:26 INR (Anticoag Therapy) 0.99 (0.77-1.02) 12/13/18 15:26 APTT 57.7 seconds (26.0-36.3) H 12/17/18 08:25 Sodium 133 mmol/L (135-145) L 12/18/18 05:04 Potassium 4.3 mmol/L (3.5-5.0) 12/18/18 05:04 Chloride 101 mmol/L (101-111) 12/18/18 05:04 Carbon Dioxide 27 mmol/L (22-32) 12/18/18 05:04 Anion Gap 5 mmol/L (2-11) 12/18/18 05:04 BUN 10 mg/dL (6-24) 12/18/18 05:04 Creatinine 0.63 mg/dL (0.51-0.95) 12/18/18 05:04 Est GFR ( Amer) 112.7 (>60) 12/18/18 05:04 Est GFR (Non-Af Amer) 93.2 (>60) 12/18/18 05:04 BUN/Creatinine Ratio 15.9 (8-20) 12/18/18 05:04 Glucose 122 mg/dL (70-100) H 12/18/18 05:04 POC Glucose (mg/dL) 157 mg/dL (70-100) H 12/18/18 12:11 Lactic Acid 0.9 mmol/L (0.5-2.0) 12/13/18 19:26 Calcium 9.0 mg/dL (8.6-10.3) 12/18/18 05:04 Phosphorus 4.2 mg/dL (2.5-5.0) 12/18/18 05:04 Magnesium 1.8 mg/dL (1.9-2.7) L 12/18/18 05:04 Total Bilirubin 0.20 mg/dL (0.2-1.0) 12/13/18 15:26 AST 8 U/L (13-39) L 12/13/18 15:26 ALT 5 U/L (7-52) L 12/13/18 15:26 Alkaline Phosphatase 60 U/L (34-104) 12/13/18 15:26 Total Creatine Kinase 14 U/L (10-223) 12/13/18 15:26 Troponin I 0.01 ng/mL (<0.04) 12/13/18 15:26 C-Reactive Protein 28.68 mg/L (<8.01) H 12/13/18 15:26 B-Natriuretic Peptide 56 pg/mL (<=100) 12/13/18 15:26 Total Protein 6.0 g/dL (6.4-8.9) L 12/13/18 15:26 Albumin 3.5 g/dL (3.2-5.2) 12/13/18 15:26 Globulin 2.5 g/dL (2-4) 12/13/18 15:26 Albumin/Globulin Ratio 1.4 (1-3) 12/13/18 15:26 Urine Color Yellow 12/14/18 03:50 Urine Appearance Clear 12/14/18 03:50 Urine pH 6.0 (5-9) 12/14/18 03:50 Ur Specific [place] 1.013 (1.010-1.030) 12/14/18 03:50 Urine Protein Negative (Negative) 12/14/18 03:50 Urine Ketones Negative (Negative) 12/14/18 03:50 Urine Blood Negative (Negative) 12/14/18 03:50 Urine Nitrate Negative (Negative) 12/14/18 03:50 Urine Bilirubin Negative (Negative) 12/14/18 03:50 Urine Urobilinogen Negative (Negative) 12/14/18 03:50 Ur Leukocyte Esterase Negative (Negative) 12/14/18 03:50 Urine Glucose Negative (Negative) 12/14/18 03:50 Urine Ascorbic Acid * (Negative) A 12/14/18 03:50 Blood Type A Positive 12/14/18 05:50 Antibody Screen Negative 12/14/18 05:50 Crossmatch See Detail 12/14/18 05:50
--- NOTE | 2018-12-18 13:10 | DCNOTE ---
Discharge Progress Note Primary Diagnosis: RT hip effusion, pain, proven non-infectious Secondary Diagnoses: LT knee explant of infected prosthesis in past, due to Group B strep infection Spinal epidural abscess, group B strep, s/p aspiration/drainage LT leg femoral vein DVT anemia type 2 diabetes Procedures: aspiration RT hip; no growth Consultants: Robbi Castanon - orthopedics Complications: none Pertinent Lab/Radiology testing: Laboratory Tests 12/13/18 12/13/18 12/18/18 15:26 15:26 05:04 Hgb 8.6 L Hct 27 L ESR 43 H Sodium 133 L POC Glucose (mg/dL) Magnesium 1.8 L B-Natriuretic Peptide 56 12/18/18 12/18/18 05:04 12:11 Hgb 9.4 L Hct 29 L ESR Sodium POC Glucose (mg/dL) 157 H Magnesium B-Natriuretic Peptide 12/13: US shows LT common fem DVT 12/15: US guided aspiration RT hip EKG: normal sinus, 1st degree AV block 12/13/18 15:26 Hip Right Gram Stain - Final 12/13/18 15:26 Hip Right Wound Culture - Final Normal Summer Tests pending upon discharge: 12/15/18 16:15 Body Fluid - Abscess Gram Stain - Final 12/15/18 16:15 Body Fluid - Abscess Body Fluid Culture - Preliminary No Growth Day 3 12/13/18 15:41 Blood Venous Aerobic Blood Culture - Preliminary 12/13/18 15:41 Blood Venous Anaerobic Blood Culture - Preliminary No Growth Day 4 No Growth Day 4 12/13/18 15:34 Blood Venous Aerobic Blood Culture - Preliminary 12/13/18 15:34 Blood Venous Anaerobic Blood Culture - Preliminary No Growth Day 4 No Growth Day 4 Physical Exam: Selected Entries 12/18/18 11:12 Temperature 36.9 C Pulse Rate 78 Respiratory 16 Rate Blood Pressure 122/55 (mmHg) O2 Sat by Pulse 97 Oximetry Alert, no distress Lung: clear Heart; RRR RT hip non-tender, no erythema, tiny ulcer distal aspect of healed scar LT knee in brace, edematous, wound C/D/I Disposition: [facility] for short-term rehab
--- NOTE | 2018-12-18 16:12 | TRS ---
CC: Dr. Odalys Adames; Dr. Castanon; Dr. Freeman; Dr. Neff; [facility]. TRANSFER SUMMARY: DATE OF ADMISSION: 12/13/18 DATE OF DISCHARGE: 12/18/18 PRIMARY DIAGNOSIS: Right hip fluid collection and fistula complicating a right total hip prosthesis with deep infection ruled out. SECONDARY DIAGNOSES: 1. Left knee prosthetic joint infection with explantation of prosthesis in the past. 2. Left leg femoral vein deep vein thrombosis. 3. Anemia of chronic disease and from iron deficiency anemia. 4. Type 2 diabetes. MEDICATIONS ON DISCHARGE: 1. Acetaminophen 650 q.6 hours p.r.n. pain. 2. Amlodipine 10 mg p.o. daily. 3. Vitamin C 500 mg p.o. daily. 4. Tums 500 mg p.o. t.i.d. p.r.n. 5. Vitamin D3 5000 units p.o. q.a.m. 6. Diphenhydramine 25 mg p.o. q.6 hours p.r.n. itching. 7. Colace 100 mg p.o. q.p.m. 8. Ferrous sulfate 325 mg p.o. daily. 9. Hydrocodone/APAP 10/325 one tablet p.o. t.i.d. p.r.n. pain, as well as 1 tablet p.o. q.h.s. standing. 10. Lisinopril 20 mg p.o. daily. 11. Magnesium hydroxide 30 mL p.o. b.i.d. p.r.n. dyspepsia. 12. Metformin 500 mg p.o. q.a.m. 13. Nystatin topical powder as needed. 14. Omeprazole 20 mg p.o. daily. 15. Januvia 50 mg p.o. daily. 16. Apixaban 5 mg p.o. b.i.d. 17. Heparin flush for peripheral line daily per protocol. 18. Humalog sliding scale subcutaneously. 19. Lactulose 30 mg p.o. daily p.r.n. constipation. 20. Magnesium oxide 400 mg p.o. b.i.d. 21. Probiotic 1 tab p.o. daily. 22. Ceftriaxone 2 g IV daily to compete a 45-day course. The patient needs 9 more days of this medication to complete this. HOSPITAL COURSE: The patient was admitted on 12/13/18 after an MRI as an outpatient that day showed bone marrow edema and a fluid collection in the right hip adjacent to the implanted prosthesis. The patient has had group-B strep bacteremia, group-B strep left knee prosthetic infection and group-B strep osteodiskitis of the spine that required removal of left knee and spinal abscess drainage by Dr. Freeman in the past. There was concern that the right hip also had a bacterial infection of course. The patient's right hip incision showed a possible sinus tract and on external exam, there is a tiny wound at the distal tip of the otherwise clean, dry, intact incision. This was cultured superficially, which grew only normal eamon. There was an ultrasound guided aspiration of the fluid collection deeper in her right hip, which showed no growth. Blood cultures were also no growth. The patient was seen in consultation by Dr. Neff, who switched her to cefepime while she was here in the hospital and advised completing a long course of ceftriaxone as an outpatient if the culture proved negative in the right hip, which in fact they did. The patient will be seeing Dr. Neff for outpatient consultation a week after discharge. The patient was also seen by Dr. Castanon of Orthopedics, who co-managed this investigation and was planning to do a hip open procedure and washout if necessary, but that did not end up being required. The patient also has anemia with a baseline hemoglobin around 8.6 to 9.4 during this hospital stay. Previous studies have showed low iron saturation, minimally elevated erythropoietin level and she is on oral iron. She did not have a significant hematocrit drop during the hospital stay. During hospital stay, the patient did have an ultrasound of her swollen left leg that showed a new superficial femoral DVT. The patient was initiated on IV heparin, had therapeutic PTTs between 12/15/18 and 12/17/18. She was transitioned to oral apixaban 5 mg p.o. b.i.d. without any significant bleeding complications. The patient also has type 2 diabetes and fingersticks have been between 135 and 196 in the last 48 hours. [facility] agents with as needed sliding-scale Humalog. On discharge, her physical examination noted her to be afebrile, her blood pressure was 122/55, pulse rate 78. She is alert in no distress. Her left knee is in a brace, edematous and there is an old surgical wound that is clean, dry, and intact. The right hip is nontender, nonerythematous. There is a tiny ulcer at the distal aspect of the healed scar on the right. DISPOSITION: To [facility] where she is to have short- term rehab. ACTIVITIES: She would be nonweightbearing left leg, but learn to ambulate with her right leg and a walker. DIET: Consistent carbohydrate diet. TIME SPENT: More than 45 minutes was spent coordinating the patient's discharge. [id number]/[facility] #: [id number] MTDD
== END 2018-12-18 18:01 | DRG 351 ==
LOC: ED 15:04 → SSU 18:03
PROVIDERS: ADMIT Internal Medicine; ATTEND Internal Medicine
PROC: 30233N1 Transfusion of Nonautologous Red Blood Cells into Peripheral Vein, Percutaneous Approach (ICD-10-PCS; 2018-12-14)
PROC: 0S993ZX Drainage of Right Hip Joint, Percutaneous Approach, Diagnostic (ICD-10-PCS; principal; 2018-12-15)
DX: M25.451 Effusion, right hip (principal); G06.2 Extradural and subdural abscess, unspecified; I82.412 Acute embolism and thrombosis of left femoral vein; M86.651 Other chronic osteomyelitis, right thigh; T84.54XA Infection and inflammatory reaction due to internal left knee prosthesis, initial encounter; E87.1 Hypo-osmolality and hyponatremia; I95.9 Hypotension, unspecified; E11.69 Type 2 diabetes mellitus with other specified complication; E87.5 Hyperkalemia; I10 Essential (primary) hypertension; M46.40 Discitis, unspecified, site unspecified; E66.01 Morbid (severe) obesity due to excess calories; D50.9 Iron deficiency anemia, unspecified; M25.551 Pain in right hip; Z96.643 Presence of artificial hip joint, bilateral; Z68.32 Body mass index [BMI] 32.0-32.9, adult; Z85.3 Personal history of malignant neoplasm of breast; Z79.01 Long term (current) use of anticoagulants; Z79.84 Long term (current) use of oral hypoglycemic drugs; Z79.899 Other long term (current) drug therapy; Z91.040 Latex allergy status; Z91.048 Other nonmedicinal substance allergy status; Z82.49 Family history of ischemic heart disease and other diseases of the circulatory system; Z83.3 Family history of diabetes mellitus; Z82.3 Family history of stroke; Z84.1 Family history of disorders of kidney and ureter
CPT/HCPCS: 36415; 71046; 76942; 80048; 80053; 81003; 82550; 82565; 83605; 83735; 83880; 84100; 84484; 84520; 85025; 85610; 85652; 85730; 86140; 86850; 86900; 86901; 86922; 87040; 87070; 87205; 93005; 99284; A9270-GY; J0692; J1650; J2270; J3370; J3475; P9040

== ENCOUNTER 2019-04-10 11:23 | Inpatient (IN) | payer BC ==
--- NOTE | 2019-04-02 18:55 | HP ---
HISTORY AND PHYSICAL: DATE OF ADMISSION/SURGERY: 04/10/19 DATE OF OFFICE VISIT: 03/30/19 SURGEON: Alejandra Castanon MD.* (DICTATED BY JOVANNI VILLALPANDO) PROCEDURE: Revision left total knee arthroplasty with removal of cement spacer. CHIEF COMPLAINT: Left knee pain. HISTORY OF PRESENT ILLNESS: Ms. Leon is a 73-year-old female, who had an infection of her left total knee arthroplasty. The implants were removed and antibiotic spacer was placed. She completed her IV antibiotics and has been cleared by Infectious Diseases to proceed with a revision of left total knee arthroplasty with removal of cement spacer. PAST MEDICAL HISTORY: Breast cancer, hypertension, diabetes, history of a DVT, and history of an epidural abscess. PAST SURGICAL HISTORY: Lumpectomy, , left total knee arthroplasty, I and D of left total knee arthroplasty with hardware removal and antibiotic spacer, right total hip arthroplasty, and I and D of lumbar epidural abscess. CURRENT MEDICATIONS: 1. Metformin 500 mg twice a day. 2. Lisinopril 30 mg daily. 3. Amlodipine 10 mg a day. 4. Omeprazole 20 mg a day. 5. [place] 10/325 every 4 hours as needed. 6. Ascorbic acid 500 mg daily. 7. Eliquis 5 mg twice a day. 8. Magnesium. 9. Iron 325 mg a day. 10. Cholecalciferol 5000 units. 11. Calcium. ALLERGIES: To LATEX and TAPE. FAMILY HISTORY: Coronary artery disease, chronic kidney disease, and stroke. SOCIAL HISTORY: She is a 73-year-old female. She lives at [facility], [place]. She does not use drugs or smoke. REVIEW OF SYSTEMS: A complete 14-point review of systems was reviewed with the patient. It was positive for GERD, diabetes, and history of a DVT. She denies history of hepatitis, HIV, or anesthesia problems. PHYSICAL EXAMINATION GENERAL: She is well developed, well nourished, in no acute distress. VITAL SIGNS: She stands 5 feet 8 inches tall, weighs 211 pounds. Her blood pressure is 120/80, her heart rate is 80. HEENT: Normocephalic, atraumatic. NECK: Supple. No palpable lymph nodes. PULMONARY: The lungs are clear to auscultation bilaterally. CARDIO: Regular rate and rhythm. Strong S1, S2. ABDOMEN: Soft, nontender, nondistended. NEUROLOGICAL: She is alert and oriented x3. MUSCULOSKELETAL: Left lower extremity: The skin is intact. There are no open wounds or abrasions. There is a healed midline incision. There is no range of motion of the left knee. There is a moderate effusion. She is able to dorsiflex. She has a 2+ dorsalis pedis pulse and intact sensation. ASSESSMENT AND PLAN: Ms. Leon is a 73-year-old female, who underwent an I and D of the left total knee with removal of hardware and antibiotic spacer placement secondary to an infection. She has completed her IV antibiotics and has been cleared by Infectious Diseases to undergo revision of a left total knee arthroplasty with removal of cement spacer. The surgery is scheduled for with Dr. Castanon. Dr. Castanon discussed the risks and benefits of the surgery at today's visit and all of her questions were answered. She was instructed to discontinue her Eliquis on 04/06/19 and no TXA will be used on this patient secondary to history of a deep venous thrombosis. She will follow up with Dr. Castanon two weeks after the surgery. JOVANNI VILLALPANDO [id number]/[facility] #: [id number] GUMAR[place]
[~2019-04-10 11:23] MED LIST changes: -Buffered Lidocaine 0.9% SYRIN* 5 ML/SYR SYRINGE INTRADERM ONE; +Buffered Lidocaine 1% SYRIN* 1 ML/SYRINGE INTRADERM ONE; -Famotidine IV* 10 MG/ML 2 ML (20 mg) IV ONE; +Lactated Ringers 1000 ML Bag* 1,000 ML IV SCH; +ROPIVACAINE 5 MG/ML 30 ML BTL (0.5%) ONE
--- OUTSIDE RECORDS SUMMARY | 2019-04-10 11:43 | XMS REPORT | Continuity of Care Document ---
:1945 External Reference #:[id number] Author Name JOVANNI Camarillo Address [address], [place] [address] Care Team Providers Name Role Phone Odalys Adames MD Primary Care Physician Unavailable Payers Date Identification Numbers Payment Provider Subscriber Policy Number: [id number] [employer] Ashia Herrera PayID: [id number] [address] [address] Expires: 2018 Policy Number: [id number] [facility] Ppo Ashia Herrera Group Number: [id number] [address] PayID: [id number] [address] [address] Effective: 2017 Policy Number: [id number] Travel[employer] Ashia Herrera Onset: 2017 Group Name: [phone] [address] PayID: [id number] [place] [address] Advance Directives Description No Information Available Problems Active Problems Provider Date Localized, primary osteoarthritis Alejandra Castanon M.D. Onset: 07/07/2018 Localized, primary osteoarthritis of the pelvic Alejandra Castanon M.D. Onset: 08/2018 region and thigh Arthroplasty of knee Alejandra Castanon M.D. Onset: 07/07/2018 Prosthetic arthroplasty of the hip Alejandra Castanon M.D. Onset: 09/25/2018 Osteomyelitis Alejandra Castanon M.D. 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 4-6 hours as needed pain Lisinopril 1 by mouth 30tabs Paul Nathan, 10/26/2017 30mg Tablets every day MD eZng 1 by mouth 90tabs Paul Nathan, 10/26/2017 30mg Tablets every day Ferrous Sulfate 1 by mouth Unknown 325mg Tablets every day Cholecalciferol 5000 units Unknown Powder Calcium Unknown Magnesium Unknown Eliquis 1 by mouth Unknown 5mg Tablets twice a day Ascorbic Acid 1 by mouth Unknown 500mg Tablets every day Hydrocodone-Acetaminophen 1 tab by Unknown 10-325mg mouth every 4 Tablets hours as needed Ferrousul 1 tab by Unknown 325(65Fe) mg Tablets mouth once a day Omeprazole 1 by mouth Unknown 20mg Capsules DR every day Amlodipine Besylate 1 by mouth Unknown 10mg Tablets every day Oxycodone HCL Unknown Ibuprofen 4 tabs by Unknown 200mg Tablets mouth as needed Hydrochlorothiazide 1 by mouth Unknown 12.5mg Capsules every day Furosemide 1 by mouth Unknown 20mg Tablets every day Metformin HCL 1 by mouth Unknown 500mg Tablets twice a day History Medications Amoxicillin 1 by mouth three 90caps Devin DSusanne 12/27/2018 - 500mg times a day (orders Rony M.D. 02/25/2019 [facility]apsules [facility]) Oxycodone-Acetaminop 1-2 by mouth every 70tabs Alejandra Castanon, 08/21/2018 - hen 4-6 hours as needed MJennifer 09/24/2018 5-325mg Tablets for post-op pain. max 10 per day Warfarin Sodium 1-3 tabs ( 2-6 mg) 90tabs Alejandra Castanon, 08/21/2018 - 2mg daily, determined by Keith 09/24/2018 Tablets inr dose Colace 1 tab every 12 hours 90caps Alejandra Castanon, 08/21/2018 - 100mg Capsules as needed for M.DSusanne 09/24/2018 constipation Aspirin 81 Low Dose 1 by mouth every day Unknown - 08/06/2018 Coral Calcium 2 tabs daily Unknown - 1500mg 08/05/2018 Capsules Vitamin D3 1 by mouth every day Unknown - 5000Unit 08/06/2018 Capsules Vitamin C 1 tab by mouth once a Unknown - day 08/06/2018 Potassium once a day Unknown - 99mg 08/06/2018 Tablets Tramadol HCL 1-2 tablets every 6 Unknown - 50mg hours as needed 09/24/2018 Tablets Ibuprofen as needed Unknown - 200mg 08/06/2018 Tablets Ceftriaxone Sodium 2 grams daily iv at Unknown - [place] x 56 days 12/27/2018 2gm Solution Rec Immunizations Description No Information Available Vital Signs Date Vital Result Comment 03/30/2019 11:23am Height 68 inches 5'8" Weight 211.00 lb Heart Rate 80 /min BP Systolic 120 mmHg BP Diastolic 80 mmHg Body Temperature 97.9 F Pain Level 5 BMI (Body Mass Index) 32.1 kg/m2 03/12/2019 11:58am Height 68 inches 5'8" Heart Rate 74 /min BP Systolic 126 mmHg BP Diastolic 72 mmHg Respiratory Rate 18 /min Body Temperature 99.6 F Pain Level 3 03/02/2019 10:27am Height 68 inches 5'8" Weight 214.00 lb per pt Heart Rate 74 /min BP Systolic Sitting 124 mmHg BP Diastolic Sitting 60 mmHg Respiratory Rate 14 /min Body Temperature 98.3 F BMI (Body Mass Index) 32.5 kg/m2 01/30/2019 10:11am Height 68 inches 5'8" Weight 240.00 lb per pt Heart Rate 92 /min BP Systolic Sitting 110 mmHg BP Diastolic Sitting 62 mmHg Respiratory Rate 14 /min Body Temperature 98.5 F BMI (Body Mass Index) 36.5 kg/m2 01/16/2019 10:30am Height 68 inches 5'8" Weight 230.00 lb BP Systolic Sitting 122 mmHg BP Diastolic Sitting 80 mmHg Pain Level 3 BMI (Body Mass Index) 35.0 kg/m2 12/27/2018 10:52am Height 68 inches 5'8" Heart Rate 84 /min BP Systolic Sitting 110 mmHg BP Diastolic Sitting 60 mmHg Respiratory Rate 14 /min Body Temperature 98.8 F 12/27/2018 8:45am Height 68 inches 5'8" Weight 206.00 lb BP Systolic Sitting 130 mmHg BP Diastolic Sitting 80 mmHg Body Temperature 97.0 F Pain Level 6 BMI (Body Mass Index) 31.3 kg/m2 12/13/2018 10:35am Height 68 inches 5'8" Weight [...] Result H/L Range Note CBC Auto Diff 04/04[facility] White Blood 8.5 10^3/uL N 3.5-10.[address] [place] [address] [phone] Red Blood Count 4.55 10^6/uL N 3.70-4.87 Hemoglobin 12.0 g/dL N 12.0-16.0 Hematocrit 37 % N 35-47 Mean Corpuscular Volume 82 fL N 80-97 Mean Corpuscular Hemoglobin 26 pg Low 27-31 Mean Corpuscular HGB Conc 32 g/dL N 31-36 Red Cell Distribution Width 17 % High 10.5-15 Platelet Count 213 10^3/uL N 150-450 Mean Platelet Volume 7.7 fL N 7.4-10.4 Abs Neutrophils 6.3 10^3/uL N 1.5-7.7 Abs Lymphocytes 1.1 10^3/uL N 1.0-4.8 Abs Monocytes 0.7 10^3/uL N 0-0.8 Abs Eosinophils 0.4 10^3/uL N 0-0.6 Abs Basophils 0.1 10^3/uL N 0-0.2 Abs Nucleated RBC 0.0 10^3/uL Granulocyte % 74.0 % Lymphocyte % 12.4 % Monocyte % 8.3 % Eosinophil % 4.7 % Basophil % 0.6 % Nucleated Red Blood Cells % 0.0 Urinalysis Profile 04/04/2019 [facility] Urine Color Yellow [address] [place] [address] [phone] Urine Appearance Cloudy Urine Specific Garrison 1.017 N 1.010-1.030 Urine pH 6.0 N 5-9 Urine Urobilinogen Negative Negative Urine Ketones Negative Negative Urine Protein Negative Negative Urine Leukocytes 3+ Abnormal Negative Urine Blood Negative Negative * * Abnormal Negative 1 Urine Nitrite Negative Negative Urine Bilirubin Negative Negative Urine Glucose Negative Negative Urine White Blood Cell 3+(>20/hpf) Abnormal Absent Urine Red Blood Cell 2+(6-10/hpf) Abnormal Absent Urine Bacteria Absent Absent Urine Squamous Epithelial Cell Present Abnormal Absent Inr/Protime 04/04/2019 [facility] Inr 1.10 High 0.82-1.[address] [place] [address] [phone] Laboratory test 04/04/2019 [facility] Partial 36.9 High 26.0- 36.[address] [place] [address] Time PTT [phone] Comp Metabolic 04/04/2019 [facility] Sodium 136 mmol/L N 135- [address] [place] [address] [phone] Potassium 4.9 mmol/L N 3.5-5.0 Chloride 100 mmol/L Low 101-111 Co2 Carbon Dioxide 28 mmol/L N 22-32 Anion Gap 8 mmol/L N 2-11 Glucose 130 mg/dL High 70-100 Blood Urea Nitrogen 18 mg/dL N 6-24 Creatinine 0.69 mg/dL N 0.51-0.95 BUN/Creatinine Ratio 26.1 High 8-20 Calcium 9.7 mg/dL N 8.6-10.3 Total Protein 7.0 g/dL N 6.4-8.9 Albumin 4.4 g/dL N 3.2-5.2 Globulin 2.6 g/dL N 2-4 Albumin/Globulin Ratio 1.7 N 1-3 Total Bilirubin 0.30 mg/dL N 0.2-1.0 Alkaline Phosphatase 72 U/L N 34-104 Alt 13 U/L N 7-52 Ast 12 U/L Low 13-39 Egfr Non- 83.9 >60 Egfr 101.5 >60 3 Type & Screen 04/04/2019 [facility] Patient Blood Type A Positive [address] [place] [address] [phone] Antibody Screen NEGATIVE Laboratory test 01/08/2019 [facility] C Reactive 10.33 High < 8.01 4, 5 finding [facility] Protein mg/[place] [address] [phone] CBC Auto Diff 01/08/2019 [facility] White Blood 8.1 N 3.5- 10.8 DRIVE Count 10^3/[place] [address] [phone] Red Blood Count 4.40 10^6/uL N 4.00-5.40 Hemoglobin 11.3 g/dL Low 12.0-16.0 Hematocrit 35 % N 35-47 Mean Corpuscular Volume 80 fL N 80-97 Mean Corpuscular Hemoglobin 26 pg Low 27-31 Mean Corpuscular HGB Conc 32 g/dL N 31-36 Red Cell Distribution Width 20 % High 10.5-15 Platelet Count 251 10^3/uL N 150-450 Mean Platelet Volume 7.7 fL N 7.4-10.4 Abs Neutrophils 6.0 10^3/uL N 1.5-7.7 Abs Lymphocytes 0.9 10^3/uL Low 1.0-4.8 Abs Monocytes 0.7 10^3/uL N 0-0.8 Abs Eosinophils 0.4 10^3/uL N 0-0.6 Abs Basophils 0.1 10^3/uL N 0-0.2 Abs Nucleated RBC 0 10^3/uL Granulocyte % 74.3 % Lymphocyte % 10.9 % Monocyte % 8.8 % Eosinophil % 5.1 % Basophil % 0.9 % Nucleated Red Blood Cells % 0.1 Comp Metabolic Panel 01/08/2019 [facility] Sodium 134 mmol/L Low 135-[address] [place] [address] [phone] Potassium 4.6 mmol/L N 3.5-5.0 Chloride 99 mmol/L Low 101-111 Co2 Carbon Dioxide 25 mmol/L N 22-32 Anion Gap 10 mmol/L N 2-11 Glucose 139 mg/dL High 70-100 Blood Urea Nitrogen 13 mg/dL N 6-24 Creatinine 0.58 mg/dL N 0.51-0.95 BUN/Creatinine Ratio 22.4 High 8-20 Calcium 9.6 mg/dL N 8.6-10.3 Total Protein 6.1 g/dL Low 6.4-8.9 Albumin 3.5 g/dL N 3.2-5.2 Globulin 2.6 g/dL N 2-4 Albumin/Globulin Ratio 1.3 N 1-3 Total Bilirubin 0.30 mg/dL N 0.2-1.0 Alkaline Phosphatase 62 U/L N 34-104 Alt 6 U/L Low 7-52 Ast 9 U/L Low 13-39 Egfr Non- 102.5 >60 Egfr 124.0 >60 6 CBC Auto Diff 01/01/2019 [facility] White Blood 7.3 10^3/uL N 3.5-10.[address] [place] [address] [phone] Red Blood Count 4.58 10^6/uL N 4.00-5.40 Hemoglobin 11.7 g/dL Low 12.0-16.0 Hematocrit 37 % N 35-47 Mean Corpuscular Volume 80 fL N 80-97 Mean Corpuscular Hemoglobin 26 pg Low 27-31 Mean Corpuscular HGB Conc 32 g/dL N 31-36 Red Cell Distribution Width 20 % High 10.5-15 Platelet Count 293 10^3/uL N 150-450 Mean Platelet Volume 7.8 fL N 7.4-10.4 Abs Neutrophils 5.2 10^3/uL N 1.5-7.7 Abs Lymphocytes 1.0 10^3/uL N 1.0-4.8 Abs Monocytes 0.6 10^3/uL N 0-0.8 Abs Eosinophils 0.4 10^3/uL N 0-0.6 Abs Basophils 0.1 10^3/uL N 0-0.2 Abs Nucleated RBC 0 10^3/uL Granulocyte % 72.0 % Lymphocyte % 13.9 % Monocyte % 8.1 % Eosinophil % 5.1 % Basophil % 0.9 % Nucleated Red Blood Cells % 0 Comp Metabolic Panel 01/01/2019 [facility] Sodium 133 mmol/L Low 135-[address] [place] [address] [phone] Potassium 4.4 mmol/L N 3.5-5.0 Chloride 96 mmol/L Low 101-111 Co2 Carbon Dioxide 29 mmol/L N 22-32 Anion Gap 8 mmol/L N 2-11 Glucose 116 mg/dL High 70-100 Blood Urea Nitrogen 12 mg/dL N 6-24 Creatinine 0.61 mg/dL N 0.51-0.95 BUN/Creatinine Ratio 19.7 N 8-20 Calcium 9.4 mg/dL N 8.6-10.3 Total Protein 6.5 g/dL N 6.4-8.9 Albumin 3.8 g/dL N 3.2-5.2 Globulin 2.7 g/dL N 2-4 Albumin/Globulin Ratio 1.4 N 1-3 Total Bilirubin 0.30 mg/dL N 0.2-1.0 Alkaline Phosphatase 60 U/L N 34-104 Alt 5 U/L Low 7-52 Ast 9 U/L Low 13-39 Egfr Non- 96.7 >60 Egfr 117.0 >60 8 Laboratory test 01/01/2019 [facility] C Reactive 9.51 mg/L High <8.01 [address] [place] [address] [phone] Basic Metabolic 12/06/2018 [facility] Sodium 128 Low 135-[address] mmol/[place] [address] [phone] Chloride 97 mmol/L Low 101-111 Co2 Carbon Dioxide 24 mmol/L N 22-32 Glucose 116 mg/dL High 70-100 Blood Urea Nitrogen 15 mg/dL N 6-24 Creatinine 0.91 mg/dL N 0.51-0.95 BUN/Creatinine Ratio 16.5 N 8-20 Calcium 9.1 mg/dL N 8.6-10.3 Egfr Non- 60.9 >60 Egfr 73.7 >60 11 Potassium 5.5 mmol/L High 3.5-5.0 Anion Gap 7 mmol/L N 2-11 Laboratory test 12/06/2018 [facility] Osmolality 280 mOsm/kg N 275-295 [address] [place] [address] [phone] CBC Auto Diff 11/13/2018 [facility] White Blood 7.0 10^3/uL N 3.5-10.[address] [place] [address] [phone] Red Blood Count 3.41 10^6/uL Low 4.00-5.40 [...] Cells % 0.1 Comp Metabolic Panel 11/13/2018 [facility] Sodium 131 mmol/L Low 135-[address] [place] [address] [phone] Potassium 4.8 mmol/L N 3.5-5.0 Chloride 94 [...] Egfr Non- 96.7 >60 Egfr 117.0 >60 14 Laboratory test 11/13/2018 [facility] C Reactive 58.17 mg/L High <8.01 [address] [place] [address] [phone] Urine Culture And 08/07/2018 [facility] Urine SEE RESULT [address] [address] [phone] Type & Screen 08/07/2018 [facility] Patient A Positive [address] [place] [address] [phone] Antibody Screen NEGATIVE Laboratory test 08/07/2018 [facility] Partial 30.1 seconds N 26.0-36.[address] [place] [address] PTT [phone] Inr/Protime 08/07/2018 [facility] Inr 0.87 N 0.77-1.[address] [place] [address] [phone] Urinalysis 08/07/2018 [facility] Urine Color Straw Profile [address] [place] [address] [phone] Urine Appearance Clear Urine Specific Garrison 1.005 Low 1.010-1.030 Urine pH 7.0 N [...] Cell Present Abnormal Absent Laboratory test 02/13/2018 [facility] Point of Care 134 mg/dL High 70-100 [address] [place] [place] [address] [phone] Laboratory test 01/23/2018 [facility] Point of Care 133 mg/dL High 70-100 [address] [place] [place] [address] [phone] Laboratory test 10/24/2017 [facility] Surgical SEE RESULT [address] [place] [address] [phone] Wound 04/11/2017 [facility] Wound/Misc SEE RESULT 20 Culture/Sensi [address] [place] [address] Stain [phone] Wound 03/03/2017 [facility] Wound/Misc SEE RESULT 21, 22 Culture/Sensi [address] [place] [address] Stain [phone] 1 *Ascorbic acid is present which may interfere with detection of blood. 2 Standard intensity warfarin therapeutic range: 2.0-3.0 High intensity warfarin therapeutic range: 2.5-3.5 3 Because ethnic data is not always readily [...] 15-29 5 Kidney failure <15 (or dialysis) 4 [facility] - Floor: 1, Rm #: [id number] 5 [facility] - Floor: 1, Rm #: [id number] 6 Because ethnic data is not always readily [...] 15-29 5 Kidney failure <15 (or dialysis) 7 [id number] 8 Because ethnic data is not always readily [...] 15-29 5 Kidney failure <15 (or dialysis) 9 [id number] 10 [facility] - Floor: 1, Rm #: [id number] 11 Because ethnic data is not always readily [...] 15-29 5 Kidney failure <15 (or dialysis) 12 [facility] - Floor: 1, Rm #: [id number] 13 [facility] - Floor: 1, Rm #: [id number] 14 Because ethnic data is not always readily [...] 15-29 5 Kidney failure <15 (or dialysis) 15 [facility] Floor: 1, Rm #: [id number] 16 SEE RESULT BELOW Name: ASHIA HERRERA : [address]: Alejandra Castanon MD Acct: [id number] Unit: [id number] AGE: 73 Location: PAT Re08/07/18 SEX: F Status: REG REF SPEC: [id number] LUKE: 08/07/[address]: Alejandra Castanon MD REQ: [id number] RECD: 08/07/18 STATUS: COMP _ SOURCE: URINE SPDESC: ORDERED: Urine Culture QUERIES: Urine Source: Clean Catch Procedure Result Reported Site Urine Culture Final 08/08/18- 1246 ML No growth of clinically significant organisms * ML - Main Lab . END OF REPORT DEPARTMENT OF PATHOLOGY, [address] [place] [address] Richard Browning M.D. Director [facility] # [id number] 17 Supervisor Mending: [id number] 18 Supervisor Mending: [id number] 19 SEE RESULT BELOW Name: ASHIA HERRERA : [address]: Amina Solomon MD Acct: [id number] Unit: [id number] AGE: 72 Location: WOUND Re10/24/17 SEX: F Status: REG REF SPEC: [id number] LUKE: 10/24/[address] [facility] [address]: Amina Solomon MD REQ: [id number] RECD: 10/24/17-1221 STATUS: JUAN ESTRADA DR: Ashlee Adames MD [...] Signed (signature on file) Macie Diamond MD 155 END OF REPORT * ML=Testing performed at Main Lab DEPARTMENT OF PATHOLOGY, [address] [place] [address] Richard Browning M.D. Director [facility] # [id number] 20 SEE RESULT BELOW Name: ASHIA HERRERA : [address]: Ashlee Arvizu MD Acct: [id number] Unit: [id number] AGE: 71 Location: WOUND Re04/11/17 SEX: F Status: REG REF SPEC: [id number] LUKE: 04/11/[address] [facility] [address]: Ashlee Arvizu MD REQ: [id number] RECD: 04/11/17 STATUS: TYLOR YOUNGBLOOD DR: Blanca Castro GAS JOCKEY Odalys Adames MD _ SOURCE: FOOT,LEFT SPDESC: [...] for recollect. * ML - MAIN LAB ([facility]) . END OF REPORT * ML=Testing performed at Main Lab DEPARTMENT OF PATHOLOGY, [address] [place] [address] Richard Browning M.D. Director [facility] # [id number] 21 LEFT MEDIAL FOOT ULCER 22 SEE RESULT BELOW Name: ASHIA HERRERA : [address]: Ashlee Arvizu MD Acct: [id number] Unit: [id number] AGE: 71 Location: WOUND Re03/03/17 SEX: F Status: REG REF SPEC: [id number] LUKE: 03/03/[address] [facility] [address]: Blanca Castro NP REQ: [id number] RECD: 03/03/17 STATUS: TYLOR ESTRADA DR: Ashlee Adames MD _ SOURCE: FOOT,LEFT SPDESC: ORDERED: Culture Stain COMMENTS: LEFT MEDIAL FOOT ULCER QUERIES: Specimen Description RED SWAB Procedure Result Reported Site Wound/Misc Gram Stain Final 03/03/17- 1059 ML 1+ Epithelial Cells 3+ Neutrophils 1+ Gram Positive Bacilli Wound/Misc Culture Final 03/05/17- 0829 ML Organism 1 NORMAL NNEKA Quantity 1+ * ML - MAIN LAB ([facility]) . END OF REPORT * ML=Testing performed at Main Lab DEPARTMENT OF PATHOLOGY, [address] [place] [address] Richard Browning M.D. Director [facility] # [id number] Procedures Date Code Description Status 02/22/2019 98662 Removal Devitalization Tissue Wound Less Than Equal 20 Completed Square CM 02/15/2019 51668 Removal Devitalization Tissue Wound Less Than Equal 20 Completed Square CM 02/08/2019 63116 Removal Devitalization Tissue Wound Less Than Equal 20 Completed Square CM 01/25/2019 29372 Removal Devitalization Tissue Wound Less Than Equal 20 Completed Square CM 11/02/2018 23434 Removal Of Prosthesis, Incl TKR Prosthesis,W Or W/O Completed Insert Spacer 11/02/2018 38623 Removal Of Prosthesis, Incl TKR Prosthesis,W Or W/O Completed Insert Spacer 11/02/2018 54165 Removal Of Prosthesis, Incl TKR Prosthesis,W Or W/O Completed Insert Spacer 11/02/2018 59600 Removal Of Prosthesis, Incl TKR Prosthesis,W Or W/O Completed Insert Spacer 11/02/2018 88787 Removal Of Prosthesis, Incl TKR Prosthesis,W Or W/O Completed Insert Spacer 11/01/2018 24801 ECHO Transthorasic Realtime 2D W Doppler & Color Flow Completed [facility] 10/31/2018 01307 Non-Segmental Instrumentation Posterior 1 Interspace Completed 10/31/2018 88123 Non-Segmental Instrumentation Posterior 1 Interspace Completed 10/31/2018 82785 Non-Segmental Instrumentation Posterior 1 Interspace Completed 10/31/2018 84659 Non-Segmental Instrumentation Posterior 1 Interspace Completed 10/31/2018 22946 Stereotactic Computer-Assisted, Spinal Completed 10/31/2018 48728 Stereotactic Computer-Assisted, Spinal Completed 10/31/2018 52694 Laminectomy;For Intraspinal Lesion/Lumbar Completed 10/31/2018 84675 Laminectomy;For Intraspinal Lesion/Lumbar Completed 10/31/2018 32226 Laminectomy;For Intraspinal Lesion/Lumbar Completed 10/31/2018 31878 Laminectomy;For Intraspinal Lesion/Lumbar Completed 10/31/2018 58356 Use Of Operating Microscope Completed 10/31/2018 88354 Use Of Operating Microscope Completed 08/17/2018 36263 THR Total Hip Replacement Completed 08/17/2018 95905 THR Total Hip Replacement Completed 02/13/2018 48111 Carpal Tunnel Release Completed 02/13/2018 85052 Carpal Tunnel Release Completed 02/13/2018 62772 Carpal Tunnel Release Completed 01/23/2018 38198 Carpal Tunnel Release Completed 01/23/2018 77862 Carpal Tunnel Release Completed 01/23/2018 07552 Carpal Tunnel Release Completed 10/26/201741966 Aspiration &/Or Inj Of Ganglion Cyst(S) Any Location Completed 10/26/201746802 Aspiration &/Or Inj Of Ganglion Cyst(S) Any Location Completed 10/26/201743858 Aspiration &/Or Inj Of Ganglion Cyst(S) Any Location Completed 10/24/2017 55331 Removal Devitalization Tissue Wound Less Than Equal 20 Completed Square CM 03/28/2017 15189 Removal Devitalization Tissue Wound Less Than Equal 20 Completed Square CM 03/07/2017 98794 Removal Devitalized Tissue Wound Greater Than 20 Square Completed CM 03/07/2017 70246 Removal Devitalization Tissue Wound Less Than Equal 20 Completed Square CM 03/03/2017 92096 Removal Devitalization Tissue Wound Less Than Equal 20 Completed Square CM 10/06/2015 08024197 Mammogram Completed 09/25/2015 61990095 Mammogram Completed 11/17/2012 09680983 Mammogram Completed 11/14/2012 48422936 Mammogram Completed 03/08/2012 92080884 Mammogram Completed Encounters Type Date Location Provider Dx Diagnosis Office Visit 03/12/2019 Orthopedic Alejandra Castanon, T84.54xD Infect/inflm 11:15a Services Of P[facility]ha Parker reaction due to internal left knee prosth, subs M46.26 Osteomyelitis of vertebra, lumbar region B95.1 Streptococcus, group B, causing diseases classd elswhr M25.562 Pain in left knee M25.462 Effusion, left knee Office Visit 03/02/2019 [facility] Abi Harding M46.26 Osteomyelitis of 11:00a For Infectious Keren, GAS JOCKEY vertebra, lumbar Diseases region G06.1 Intraspinal abscess and granuloma E11.622 Type 2 diabetes mellitus with other skin ulcer T84.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, subs Office Visit 03/01/2019 1:00p Wound Care Manuel Berry E11.9 Type 2 diabetes Center AT [facility] Keith Schaffer mellitus without complications M46.26 Osteomyelitis of vertebra, lumbar region G06.1 Intraspinal abscess and granuloma I10 Essential (primary) hypertension Office Visit 02/16/2019 Neurosurgery Vassilios Z48.89 Encounter for 10:30a Services Of Allen Freeman MD other specified surgical aftercare 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 and [facility] Hospitalists unsp deep vn unsp lower extremity M25.551 Pain in right hip D64.9 Anemia, unspecified I10 Essential (primary) hypertension Z96.641 Presence of right artificial hip joint T84.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, subs E11.69 Type 2 diabetes mellitus with other specified complication Office Visit 12/16/2018 [facility] I82.409 Acute embolism 10:02a Assdavidson davies M.D. and [facility] Hospitalists unsp deep vn unsp lower extremity M25.551 Pain in right hip D64.9 Anemia, unspecified I10 Essential (primary) hypertension Z96.641 Presence of right artificial hip joint T84.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, subs E11.69 Type 2 diabetes mellitus with other specified complication Office Visit 12/15/2018 10:02a [facility] Susan M25.551 Pain in Assocdavidson, MARILOU right hip Hospitalists D64.9 Anemia, unspecified G06.2 Extradural and subdural abscess, unspecified I10 Essential (primary) hypertension T84.54xA Infect/inflm reaction due to internal left knee prosth, init E11.69 Type 2 diabetes mellitus with other specified complication I82.409 Acute embolism and thombos unsp deep vn unsp lower extremity Office Visit 12/15/2018 [facility] Devin Astudillo T84.54xA Infect/inflm 10:41a For Infectious Keith Uribe reaction due to Diseases internal left knee prosth, init M46.26 Osteomyelitis of vertebra, lumbar region M46.46 Discitis, unspecified, lumbar region G06.1 Intraspinal abscess and granuloma Office Visit 12/14/2018 10:18a Orthopedic Alejandra T84.54xD Infect/inflm Services Of Keith Castanon reaction due to C.M.A. internal left knee prosth, subs I82.402 Acute embolism and thombos unsp deep veins of l low extrem M25.452 Effusion, left hip Office Visit 12/14/2018 10:19a Orthopedic Luly Guidry, Services Of C.M.A. PA Office Visit 12/14/2018 10:33a 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, unspecified I10 Essential (primary) hypertension T84.54xA Infect/inflm reaction due to internal left knee prosth, init E11.69 Type 2 diabetes mellitus with other specified complication I82.409 Acute embolism and thombos unsp deep vn unsp lower extremity Office Visit 12/13/2018 [facility] Scott B95.1 Streptococcus, group 10:01a Assoc,pc JOVANNI Maldonado B, causing diseases Hospitalists classd elswhr T84.54xA Infect/inflm reaction due to internal left knee prosth, init E11.69 Type 2 diabetes mellitus with other specified complication D64.9 Anemia, unspecified I10 Essential (primary) hypertension E87.1 Hypo-osmolality and hyponatremia E87.5 Hyperkalemia Office Visit 12/01/2018 2:00p Orthopedic Alejandra A40.1 Sepsis due to Services Of Keith Castanon streptococcus, group C.M.A. B T84.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, subs S71.001A Unspecified open wound, right hip, initial encounter Z96.641 Presence of right artificial hip joint Z47.1 Aftercare following joint replacement surgery [facility] complications 10:23a Assocdavidson M.D. of procedures, Hospitalists NEC, init G06.1 Intraspinal abscess and granuloma Office Visit 11/17/2018 Orthopedic Nghia Garcia, T84.54xA Infect/inflm 2:30p Services Of MD reaction due to C.M.A. internal left knee prosth, init M25.551 Pain in right hip Office Visit 11/10/2018 [facility] Diya A40.1 Sepsis due to 1:07p Assoc,davidson Goyal [...] kidney failure, unspecified Office Visit 11/09/2018 1:07p [facility] G06.2 Extradural and Assocdavidson M.D. subdural abscess, Hospitalists unspecified T84.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, subs D64.9 Anemia, unspecified I10 Essential (primary) hypertension E11.9 Type 2 diabetes mellitus without complications B85.2 Pediculosis, unspecified Office Visit 11/08/2018 1:34p [place] Aleksander Astudillo G06.1 Intraspinal Infectious Keith Uribe abscess and Diseases granuloma T84.54xA Infect/inflm reaction due to internal left knee prosth, init E11.9 Type 2 diabetes mellitus without complications R19.7 Diarrhea, unspecified Office Visit 11/08/2018 1:07p [facility] Diya G06.2 Extradural and davidson De Guzman M.D. subdural abscess, Hospitalists unspecified T84.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, subs D64.9 Anemia, unspecified I10 Essential (primary) hypertension E11.9 Type 2 diabetes mellitus without complications B85.2 Pediculosis, unspecified Office 11/07/2018 [facility] T84.54xD Infect/inflm Visit 1:07p davidson De Guzman M.D. 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, unspecified N17.9 Acute kidney failure, unspecified E11.9 Type 2 diabetes mellitus without complications I10 Essential (primary) hypertension K59.00 Constipation, unspecified B85.2 Pediculosis, unspecified Office Visit 11/02/2018 [facility] 1:05p Assoc,pc Leticia, GAS JOCKEY Hospitalists Office Visit 11/01/2018 [facility] G06.2 Extradural and 1:05p Assoc,pc Henna, GAS JOCKEY subdural abscess, Hospitalists unspecified M43.26 Fusion of spine, lumbar region N17.9 Acute kidney failure, unspecified I10 Essential (primary) hypertension E11.9 Type 2 diabetes mellitus without complications B85.2 Pediculosis, unspecified K59.00 Constipation, unspecified Office Visit 11/01/2018 [facility] Luly T84.54xA Infect/inflm 10:09a Services Of JOVANNI Guidry reaction due to C.M.A. internal left knee prosth, init Office Visit 11/01/2018 [facility] Devin Astudillo G06.1 Intraspinal 12:31p For Infectious [place], abscess and Diseases M.D. granuloma M25.562 Pain in left knee Z96.652 Presence of left artificial knee joint R78.81 Bacteremia B95.1 Streptococcus, group B, causing diseases classd elswhr Office Visit 11/01/2018 Orthopedic Nghia Garcia T84.54xA Infect/inflm 3:20p Services Of reaction due to C.M.A. internal left knee prosth, init Office Visit 10/31/2018 [facility] Luanne G06.2 Extradural and 1:04p Assoc,davidson Aguillon NP subdural abscess, Hospitalists unspecified N17.9 Acute kidney failure, unspecified I10 Essential (primary) hypertension E87.1 Hypo-osmolality and hyponatremia E11.9 Type 2 diabetes mellitus without complications M53.2x6 Spinal instabilities, lumbar region K59.00 Constipation, unspecified Office Visit 10/30/2018 1:04p [facility] Isa G06.2 Extradural and Assoc,davidosn Gasca D.O. subdural abscess, Hospitalists unspecified E87.1 Hypo-osmolality and hyponatremia N17.9 Acute kidney failure, unspecified E11.9 Type 2 diabetes mellitus without complications D64.9 Anemia, unspecified Office Visit 10/30/2018 12:13p [facility] Devin Astudillo G06.1 Intraspinal Infectious Keith Uribe abscess and Diseases granuloma G95.29 Other cord compression R78.81 Bacteremia Z96.641 Presence of right artificial hip joint E11.9 Type 2 diabetes mellitus without complications Office Visit 10/30/2018 [facility] Vassilios G06.1 Intraspinal 7:00a Services Of Allen Freeman MD abscess and granuloma M53.2x6 Spinal instabilities, lumbar region Office Visit 08/21/2018 11:30a [facility] Yolanda Daly, Z47.1 Aftercare Assoc,pc N.P. following joint Hospitalists replacement surgery Z96.641 Presence of right artificial hip joint E87.1 Hypo-osmolality and hyponatremia N17.9 Acute kidney failure, unspecified I10 Essential (primary) hypertension E11.9 Type 2 diabetes mellitus without complications Office Visit 08/20/2018 11:30a [facility] Yolanda Daly Z47.1 Aftercare Assoc,pc N.P. following joint Hospitalists replacement surgery Z96.641 Presence of right artificial hip joint E87.1 Hypo-osmolality and hyponatremia N17.9 Acute kidney failure, unspecified I10 Essential (primary) hypertension E11.9 Type 2 diabetes mellitus without complications Office Visit 08/19/2018 [facility] Crystal Z47.1 Aftercare 11:29a Assoc,davidson Mathis NP following joint Hospitalists replacement surgery Z96.641 Presence of right artificial hip joint E87.1 Hypo-osmolality and hyponatremia I10 Essential (primary) hypertension E11.9 Type 2 diabetes mellitus without complications N17.9 Acute kidney failure, unspecified Office Visit 08/18/2018 [facility] Crystal Z96.641 Presence of 11:23a Assoc,davidson Mathis NP right artificial Hospitalists hip joint Z47.1 Aftercare following joint replacement surgery I10 Essential (primary) hypertension E11.9 Type 2 diabetes mellitus without complications E87.1 Hypo-osmolality and hyponatremia N17.9 Acute kidney failure, unspecified Office Visit 08/17/2018 11:07a [facility] Frantz Rebollar, E11.9 Type 2 [...] Office Visit 05/04/2017 3:30p W[facility] Care [facility] E11.621 Type 2 diabetes AT [facility] MD Juanito mellitus with foot ulcer L97.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 L97.822 Non-prs chronic ulcer oth prt l low leg w fat layer exposed I87.313 Chronic venous hypertension w ulcer of bilateral low extrm I10 Essential (primary) hypertension Office Visit 04/27/2017 1:00p Wound Care Amina Diaz E11.621 Type 2 diabetes Center AT [facility] MD Juanito mellitus with foot ulcer L97.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 L97.822 Non-prs chronic ulcer oth prt l low leg w fat layer exposed I87.313 Chronic venous hypertension w ulcer of bilateral low extrm I10 Essential (primary) hypertension Office Visit 03/07/2017 12:10p Wound Care Blanca Castro E11.621 Type 2 diabetes Center AT [facility] JOHN GORDON, CHIEF NURSE EXECUTIVE-BC mellitus with foot ulcer L97.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 L97.822 Non-prs chronic ulcer oth prt l low leg w fat layer exposed R60.0 Localized edema M79.662 Pain in left lower leg I87.2 Venous insufficiency (chronic) (peripheral) Office Visit 03/03/2017 10:55a Wound Care Blanca Castro E11.621 Type 2 diabetes Center AT [facility] JOHN GORDON, CHIEF NURSE EXECUTIVE-BC mellitus with foot ulcer L97.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 L97.822 Non-prs chronic ulcer oth prt l low leg w fat layer exposed R60.0 Localized edema M79.662 Pain in left lower leg Office Visit 06/30/2016 9:28a [facility] Devin Astudillo L03.116 Cellulitis of For Halle Uribe M.D. left lower limb Diseases Z96.652 Presence of left artificial knee joint Office Visit 06/30/2016 [facility] Alysha Boo L03.116 Cellulitis of 2:18p davidson De Guzman M.D. left lower limb Hospitalists E11.621 Type 2 diabetes mellitus with foot ulcer R65.20 Severe sepsis without septic shock Office Visit 06/29/2016 9:16a [facility] Devin Astudillo L03.116 Cellulitis of For Infectious Keith Uribe left lower limb Diseases Z96.652 Presence of left artificial knee joint I87.2 Venous insufficiency (chronic) (peripheral) E11.40 Type 2 diabetes mellitus with diabetic neuropathy, unsp Office Visit 06/28/2016 [facility] L03.116 Cellulitis of 2:16p Assoc,davidson Scott, GAS JOCKEY left lower limb Hospitalists I83.12 Varicose veins of left lower extremity with inflammation I83.11 Varicose veins of right lower extremity with inflammation A41.9 Sepsis, unspecified organism Plan of Treatment Future Appointment(s):04/20/2019 2:45 pm - Alejandra Castanon M.D. at [facility]04/10/2019 1:45 pm - [facility] [facility] 1:45 pm - Denis Bermudez PA-C at [facility].04/10/2019 1:45 pm - Alejandra Castanon M.D. at [facility].04/19/2019 10:00 am - Abi Veliz NP at [place] [facility]2019 - Devin Uribe M.D.E11.622 Type 2 diabetes mellitus with other skin plpxpK41.26 Osteomyelitis of vertebra, lumbar regionComments:amoxicillin month 1 of 2 then will stop antibiotics; will check with Dr Castanon re timing of left wawmtxpogtgR71.1 Intraspinal abscess and granulomaFollow up:1 month
--- OUTSIDE RECORDS SUMMARY | 2019-04-10 11:44 | XMS REPORT | Continuity of Care Document ---
:1945 External Reference #:[id number] Author Name Darleen Gambino Care Team Providers Name Role Phone Odalys Adames MD Primary Care Physician Unavailable Payers Date Identification Numbers Payment Provider Subscriber Policy Number: [id number] [employer] Ashia Herrera PayID: [id number] [address] [address] Expires: 2018 Policy Number: [id number] [facility] Ashia Herrera Group Number: [id number] [address] PayID: [id number] [address] [address] Effective: 2017 Policy Number: [id number] [employer] Ashia Herrera Onset: 2017 Group Name: Sheron [phone] [address] PayID: [id number] [place] [address] Advance Directives Description No Information Available Problems [...] Nathan, 10/26/2017 30mg Tablets every day MD Zeng 1 by mouth 90tabs Paul Nathan, 10/26/2017 [...] 12/27/2018 - 500mg times a day (orders Keith Uribe 02/25/2019 Capsules written on [employer] consult form) Oxycodone-Acetaminop 1-2 by mouth every 70tabs Alejandra Castanon, 08/21/2018 - hen 4-6 hours as needed M.D. 09/24/2018 5-325mg Tablets for post-op pain. max 10 per day Warfarin Sodium 1-3 tabs ( 2-6 mg) 90tabs Alejandra Castanon, 08/21/2018 - 2mg daily, determined by M.D. 09/24/2018 Tablets inr dose Colace 1 tab every 12 hours 90caps Alejandra Castanon, 08/21/2018 - 100mg Capsules as needed for M.D. 09/24/2018 constipation Aspirin 81 Low Dose 1 [...] Date Facility Test Result H/L Range Note Comp Metabolic Panel 01/08/2019 [facility] Sodium 134 mmol/L Low 135-[address] [place] [address] [phone] Potassium 4.6 mmol/L N 3.5-5.0 Chloride 99 [...] Egfr Non- 102.5 >60 Egfr 124.0 >60 2 Laboratory test 01/08/2019 [facility] C Reactive 10.33 mg/L High <8.01 [address] [place] [address] [phone] CBC Auto Diff 01/08/2019 [facility] White Blood 8.1 N 3.5- 10.[address] Count 10^3/[place] [address] [phone] Red Blood Count 4.40 10^6/uL N 4.00-5.40 [...] % Nucleated Red Blood Cells % 0.1 CBC Auto Diff 01/01/2019 [facility] White Blood 7.3 10^3/uL N 3.5-10.[address] [place] [address] [phone] Red Blood Count 4.58 10^6/uL N 4.00-5.40 [...] Cells % 0 Comp Metabolic Panel 01/01/2019 [facility] Sodium 133 mmol/L Low 135-[address] [place] [address] [phone] Potassium 4.4 mmol/L N 3.5-5.0 Chloride 96 [...] >60 Egfr 117.0 >60 5 Laboratory test 01/01/2019 [facility] C Reactive 9.51 mg/L High <8.01 [address] [place] [address] [phone] Basic Metabolic 12/06/2018 [facility] Sodium 128 Low 135-145 [address] mmol/[place] [address] [phone] Chloride 97 mmol/L Low 101-111 Co2 Carbon Dioxide 24 mmol/L N 22-32 Glucose 116 mg/dL High 70-100 Blood Urea Nitrogen 15 mg/dL N 6-24 Creatinine 0.91 mg/dL N 0.51-0.95 BUN/Creatinine Ratio 16.5 N 8-20 Calcium 9.1 mg/dL N 8.6-10.3 Egfr Non- 60.9 >60 Egfr 73.7 >60 8 Potassium 5.5 mmol/L High 3.5-5.0 Anion Gap 7 mmol/L N 2-11 Laboratory test 12/06/2018 [facility] Osmolality 280 mOsm/kg N 275-295 [address] [place] [address] [phone] CBC Auto Diff 11/13/2018 [facility] White Blood 7.0 10^3/uL N 3.5-10.[address] [place] [address] [phone] Red Blood Count 3.41 10^6/uL Low 4.00-5.40 [...] Cells % 0.1 Comp Metabolic Panel 11/13/2018 [facility] Sodium 131 mmol/L Low 135-[address] [place] [address] [phone] Potassium 4.8 mmol/L N 3.5-5.0 Chloride 94 [...] Egfr Non- 96.7 >60 Egfr 117.0 >60 11 Laboratory test 11/13/2018 [facility] C Reactive 58.17 mg/L High <8.01 [address] Protein [place], [place] [address] [phone] Urine Culture And 08/07/2018 [facility] Urine SEE RESULT [address] Culture BELOW [place], [place] [address] [phone] Type & Screen 08/07/2018 [facility] Patient A Positive [address] [place] [address] [phone] Antibody Screen NEGATIVE Laboratory test 08/07/2018 [facility] Partial 30.1 seconds N 26.0-36.[address] [address] PTT [phone] Inr/Protime 08/07/2018 [facility] Inr 0.87 N 0.77-1.[address] [place] [address] [phone] Urinalysis 08/07/2018 [facility] Urine Color Straw Profile [address] [place] [address] [phone] Urine Appearance Clear Urine Specific Ute 1.005 Low 1.010-1.030 Urine pH 7.0 N [...] Cell Present Abnormal Absent Laboratory test 02/13/2018 [facility] Point of Care 134 mg/dL High 70-100 [address] Glucose [place], [place] [address] [phone] Laboratory test 01/23/2018 [facility] Point of Care 133 mg/dL High 70-100 [address] Glucose [place], [place] [address] [phone] Laboratory test 10/24/2017 [facility] Surgical SEE RESULT [address] [place] [address] [phone] Wound 04/11/2017 [facility] Wound/Misc SEE RESULT 17 Culture/Sensi [address] [place] [address] Stain [phone] Wound 03/03/2017 [facility] Wound/Misc SEE RESULT 18, 19 Culture/Sensi [address] [place] [address] Stain [phone] 1 [facility] - Floor: 1, Rm #: [id number] 2 Because ethnic data is not always [...] 5 Kidney failure <15 (or dialysis) 3 [facility] - Floor: 1, Rm #: 146A [id number] 5 Because ethnic data is not always [...] 5 Kidney failure <15 (or dialysis) 6 [id number] 7 [facility] - Floor: 1, Rm #: 146A [id number] 8 Because ethnic data is not always [...] 5 Kidney failure <15 (or dialysis) 9 [facility] - Floor: 1, Rm #: 146A [id number] 10 [facility] - Floor: 1, Rm #: 146A [id number] 11 Because ethnic data is not always [...] 5 Kidney failure <15 (or dialysis) 12 [facility] - Floor: 1, Rm #: 146A [id number] 13 SEE RESULT BELOW Name: SHARONASHIA : [address]: Alejandra Castanon MD Acct: [id number] Unit: [id number] AGE: 73 Location: PAT Re08/07/18 SEX: F Status: REG REF SPEC: [id number] LUKE: 08/07/18-[address]: Alejandra Castanon MD REQ: [id number] RECD: 08/07/18 STATUS: COMP _ SOURCE: URINE SPDESC: ORDERED: Urine Culture QUERIES: Urine Source: Clean Catch Procedure Result Reported Site Urine Culture Final 08/08/18- 1246 ML No growth of clinically significant organisms * - [facility] . END OF REPORT DEPARTMENT OF PATHOLOGY, [address] [place] [address] Richard Browning M.D. Director [facility] # [id number] 14 Dry Sand Molder: [id number] 15 Dry Sand Molder: [id number] 16 SEE RESULT BELOW Name: ASHIA HERRERA : [address]: Amina Solomon MD Acct: [id number] Unit: [id number] AGE: 72 Location: WOUND Re10/24/17 SEX: F Status: REG REF SPEC: [id number] LUKE: 10/24/17 [facility] DR: Amina Solomon MD REQ: [id number] RECD: 10/24/171 STATUS: JUAN ESTRADA DR: Ashlee [...] and consists of a 0.4 cm scaly deluan-red circular skin punch excised to a depth of 0.2 cm which is bisected and submitted entirely in one cassette. Signed (signature on file) Macie Diamond MD 1552 END OF REPORT * ML=Testing performed at Main Lab DEPARTMENT OF PATHOLOGY, [address] [place] [address] Richard Browning M.D. Director [facility] # [id number] 17 SEE RESULT BELOW Name: ASHIA HERRERA : [address]: Ashlee Arvizu MD Acct: [id number] Unit: [id number] AGE: 71 Location: WOUND Re04/11/17 SEX: F Status: REG REF SPEC: [id number] LUKE: 04/11/17 [facility] DR: Ashlee Arvizu MD REQ: [id number] RECD: 04/11/17 STATUS: TYLOR ESTRADA DR: Blanca Castro DISTRICT BRANCH MANAGER Odalys Adames MD _ SOURCE: FOOT,LEFT SPDESC: [...] for recollect. * ML - MAIN LAB ([facility]) . END OF REPORT * ML=Testing performed at Main Lab DEPARTMENT OF PATHOLOGY, [address] [place] [address] Richard Browning M.D. Director [facility] # [id number] 18 LEFT MEDIAL FOOT ULCER 19 SEE RESULT BELOW Name: ASHIA HERRERA : [address]: Ashlee Arvizu MD Acct: [id number] Unit: [id number] AGE: 71 Location: WOUND Re03/03/17 SEX: F Status: REG REF SPEC: [id number] LUKE: 03/03/17 [facility] DR: Blanca Castro NP REQ: [id number] RECD: 03/03/17 STATUS: TYLOR ESTRADA DR: Ashlee [...] 1+ * ML - MAIN LAB ([facility]) . END OF REPORT * ML=Testing performed at Main Lab DEPARTMENT OF PATHOLOGY, [address] [place] [address] Richard Browning M.D. Director [facility] # [id number] Procedures Date Code Description Status 02/22/2019 07783 Removal Devitalization Tissue Wound Less Than Equal 20 Completed Square CM 02/15/2019 94786 Removal Devitalization Tissue Wound Less Than Equal 20 Completed Square CM 02/08/2019 05585 Removal Devitalization Tissue Wound Less Than Equal 20 Completed Square CM 01/25/2019 22875 Removal Devitalization Tissue Wound Less Than Equal 20 Completed Square CM 11/02/2018 49558 Removal Of Prosthesis, Incl TKR Prosthesis,W Or W/O Completed Insert Spacer 11/02/2018 22560 Removal Of Prosthesis, Incl TKR Prosthesis,W Or W/O Completed Insert Spacer 11/02/2018 41213 Removal Of Prosthesis, Incl TKR Prosthesis,W Or W/O Completed Insert Spacer 11/02/2018 31427 Removal Of Prosthesis, Incl TKR Prosthesis,W Or W/O Completed Insert Spacer 11/02/2018 99796 Removal Of Prosthesis, Incl TKR Prosthesis,W Or W/O Completed Insert Spacer 11/01/2018 78984 ECHO Transthorasic Realtime 2D W Doppler & Color Flow Completed Hosp 10/31/2018 20810 Non-Segmental Instrumentation Posterior 1 Interspace Completed 10/31/2018 86599 Non-Segmental Instrumentation Posterior 1 Interspace Completed 10/31/2018 08700 Non-Segmental Instrumentation Posterior 1 Interspace Completed 10/31/2018 81162 Non-Segmental Instrumentation Posterior 1 Interspace Completed 10/31/2018 13849 Stereotactic Computer-Assisted, Spinal Completed 10/31/2018 53359 Stereotactic Computer-Assisted, Spinal Completed 10/31/2018 32879 Laminectomy;For Intraspinal Lesion/Lumbar Completed 10/31/2018 16506 Laminectomy;For Intraspinal Lesion/Lumbar Completed 10/31/2018 55614 Laminectomy;For Intraspinal Lesion/Lumbar Completed 10/31/2018 19577 Laminectomy;For Intraspinal Lesion/Lumbar Completed 10/31/2018 51236 Use Of Operating Microscope Completed 10/31/2018 63889 Use Of Operating Microscope Completed 08/17/2018 52605 THR Total Hip Replacement Completed 08/17/2018 38580 THR Total Hip Replacement Completed 02/13/2018 33447 Carpal Tunnel Release Completed 02/13/2018 31631 Carpal Tunnel Release Completed 02/13/2018 18639 Carpal Tunnel Release Completed 01/23/2018 27504 Carpal Tunnel Release Completed 01/23/2018 80808 Carpal Tunnel Release Completed 01/23/2018 68035 Carpal Tunnel Release Completed 10/26/201773074 Aspiration &/Or Inj Of Ganglion Cyst(S) Any Location Completed 10/26/201757130 Aspiration &/Or Inj Of Ganglion Cyst(S) Any Location Completed 10/26/201770548 Aspiration &/Or Inj Of Ganglion Cyst(S) Any Location Completed 10/24/2017 17185 Removal Devitalization Tissue Wound Less Than Equal 20 Completed Square CM 03/28/2017 76062 Removal Devitalization Tissue Wound Less Than Equal 20 Completed Square CM 03/07/2017 44504 Removal Devitalized Tissue Wound Greater Than 20 Square Completed CM 03/07/2017 45657 Removal Devitalization Tissue Wound Less Than Equal 20 Completed Square CM 03/03/2017 58727 Removal Devitalization Tissue Wound Less Than Equal 20 Completed Square CM 10/06/2015 60245254 Mammogram Completed 09/25/2015 55587259 Mammogram Completed 11/17/2012 04018514 Mammogram Completed 11/14/2012 80257304 Mammogram Completed 03/08/2012 11590109 Mammogram Completed Encounters Type Date Location Provider Dx Diagnosis Office Visit 03/12/2019 Orthopedic Alejandra Castanon, T84.54xD Infect/inflm 11:15a Services Of Porsha Parker reaction due to internal left knee prosth, subs M46.26 Osteomyelitis of vertebra, lumbar region B95.1 Streptococcus, group B, causing diseases classd elswhr M25.562 Pain in left knee M25.462 Effusion, left knee Office Visit 03/02/2019 [facility] Abi Harding M46.26 Osteomyelitis of 11:00a For Infectious Veliz, DISTRICT BRANCH MANAGER vertebra, lumbar Diseases region G06.1 Intraspinal abscess and granuloma E11.622 Type 2 diabetes mellitus with other skin ulcer T84.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, subs Office Visit 03/01/2019 1:00p Wound Care Manuel Berry E11.9 Type 2 diabetes [facility] Keith Schaffer mellitus without complications M46.26 Osteomyelitis of vertebra, lumbar region G06.1 Intraspinal abscess and granuloma I10 Essential (primary) hypertension Office Visit 02/16/2019 Neurosurgery Vassilios Z48.89 Encounter for 10:30a Services Of Allen Freeman MD other specified surgical aftercare 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 Office Visit 01/30/2019 10:50a [facility] Keanu Astudillo E11.622 Type 2 Infectious Keith Uribe diabetes Diseases mellitus with other skin ulcer M46.26 Osteomyelitis of vertebra, lumbar region G06.1 Intraspinal abscess and granuloma Office Visit 01/25/2019 12:45p Wound Care Manuel Berry L98.429 Non-pressure Center [facility] Keith Schaffer chronic ulcer of back with unspecified severity E11.622 Type 2 diabetes mellitus with other skin ulcer M46.26 Osteomyelitis of vertebra, lumbar region G06.1 Intraspinal abscess and granuloma I10 Essential (primary) hypertension Office Visit 12/27/2018 [facility] Devin Astudillo T84.54xD Infect/inflm 10:50a For Infectious Keith Uribe reaction due to Diseases internal left knee prosth, subs M46.26 Osteomyelitis of vertebra, lumbar region G06.1 Intraspinal abscess and granuloma 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 I82.409 Acute embolism 10:03a Assoc,davidson Cervantes M.D. and [facility] Hospitalists unsp deep vn unsp lower extremity M25.551 Pain in right hip D64.9 Anemia, unspecified I10 Essential (primary) hypertension Z96.641 Presence of right artificial hip joint T84.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, subs E11.69 Type 2 diabetes mellitus with other specified complication Office Visit 12/16/2018 [facility] I82.409 Acute embolism 10:02a Assoc,davidson Cervantes M.D. and [facility] Hospitalists unsp deep vn unsp lower extremity M25.551 Pain in right hip D64.9 Anemia, unspecified I10 Essential (primary) hypertension Z96.641 Presence of right artificial hip joint T84.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, subs E11.69 Type 2 diabetes mellitus with other specified complication Office Visit 12/15/2018 10:02a [facility] Susan M25.551 Pain in Assoc,davidson Kelly, DISTRICT BRANCH MANAGER right hip Hospitalists D64.9 Anemia, unspecified G06.2 Extradural and subdural abscess, unspecified I10 Essential (primary) hypertension T84.54xA Infect/inflm reaction due to internal left knee prosth, init E11.69 Type 2 diabetes mellitus with other specified complication I82.409 Acute embolism and thombos unsp deep vn unsp lower extremity Office Visit 12/15/2018 [facility] Devin Astudillo T84.54xA Infect/inflm 10:41a For [...] 12/14/2018 10:19a Orthopedic Luly Guidry, Services Of Porsha BAIG Office Visit 12/14/2018 10:33a [facility] Devin Astudillo M86.651 Other chronic Infectious Keith Uribe osteomyelitis, Diseases right thigh E11.69 Type 2 diabetes mellitus with other specified complication M46.26 Osteomyelitis of vertebra, lumbar region M46.46 Discitis, unspecified, lumbar region T84.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 Susan M25.551 Pain in Assoc,davidson Kelly, MARILOU right hip Hospitalists D64.9 Anemia, unspecified G06.2 Extradural and subdural abscess, unspecified I10 Essential (primary) hypertension T84.54xA Infect/inflm reaction due to internal left knee prosth, init E11.69 Type 2 diabetes mellitus with other specified complication I82.409 Acute embolism and thombos unsp deep vn unsp lower extremity Office Visit 12/13/2018 [facility] Scott B95.1 Streptococcus, group 10:01a Assoc,pc [...] following joint replacement surgery Office Visit 11/27/2018 [facility] Alysha T81.89xA Oth complications 10:23a Assocdavidson M.D. of procedures, Hospitalists NEC, init G06.1 Intraspinal abscess and granuloma Office Visit 11/17/2018 Orthopedic Nghia Jose, T84.54xA Infect/inflm 2:30p Services Of MD reaction due to C.M.A. internal left knee prosth, init M25.551 Pain in right hip Office Visit 11/10/2018 [facility] Diya A40.1 Sepsis due to 1:07p Assdavidson davies M.D. 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 Diya G06.2 Extradural and Assocdavidson M.D. subdural abscess, Hospitalists unspecified T84.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, subs D64.9 Anemia, unspecified I10 Essential (primary) hypertension E11.9 Type 2 diabetes mellitus without complications B85.2 Pediculosis, unspecified Office Visit 11/08/2018 1:34p [facility] Devin Astudillo G06.1 Intraspinal Infectious Keith Uribe abscess and Diseases granuloma T84.54xA Infect/inflm reaction due to internal left knee prosth, init E11.9 Type 2 diabetes mellitus without complications R19.7 Diarrhea, unspecified Office Visit 11/08/2018 1:07p [facility] Diya G06.2 Extradural and Assocdavidson M.D. subdural abscess, Hospitalists unspecified T84.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, subs D64.9 Anemia, unspecified I10 Essential (primary) hypertension E11.9 Type 2 diabetes mellitus without complications B85.2 Pediculosis, unspecified Office 11/07/2018 [facility] T84.54xD Infect/inflm Visit 1:07p davidson De Guzman M.D. 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, unspecified I10 Essential (primary) hypertension B85.2 Pediculosis, unspecified E11.9 Type 2 diabetes mellitus without complications Office Visit 11/06/2018 1:02p [facility] Devin Astudillo G06.1 Intraspinal Infectious Keith Uribe abscess and Diseases granuloma T84.54xA Infect/inflm reaction due to internal left knee prosth, init E11.9 Type 2 diabetes mellitus without complications Office 11/06/2018 [facility] T84.54xD Infect/inflm Visit 1:06p davidson De Guzman M.D. 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, unspecified I10 Essential (primary) hypertension B85.2 Pediculosis, unspecified E11.9 Type 2 diabetes mellitus without complications Office 11/05/2018 [facility] T84.54xD Infect/inflm Visit 1:06p davidson De Guzman M.D. 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, unspecified I10 Essential (primary) hypertension B85.2 Pediculosis, unspecified E11.9 Type 2 diabetes mellitus without complications Office Visit 11/04/2018 [facility] T84.54xD Infect/inflm 1:05p davidson De Guzman D.O. 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, unspecified N17.9 Acute kidney failure, unspecified I10 Essential (primary) hypertension K59.00 Constipation, unspecified B85.2 Pediculosis, unspecified Office Visit 11/03/2018 [facility] Isa T84.54xA Infect/inflm 1:05p Assoc,davidson Gasca D.O. 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, unspecified N17.9 Acute kidney failure, unspecified E11.9 Type 2 diabetes mellitus without complications I10 Essential (primary) hypertension K59.00 Constipation, unspecified B85.2 Pediculosis, unspecified Office Visit 11/02/2018 [facility] 1:05p Assoc,pc Leticia, DISTRICT BRANCH MANAGER Hospitalists Office Visit 11/01/2018 [facility] G06.2 Extradural and 1:05p Assoc,pc Henna, DISTRICT BRANCH MANAGER subdural abscess, Hospitalists unspecified M43.26 Fusion of spine, lumbar region N17.9 Acute kidney failure, unspecified I10 Essential (primary) hypertension E11.9 Type 2 diabetes mellitus without complications B85.2 Pediculosis, unspecified K59.00 Constipation, unspecified Office Visit 11/01/2018 Orthopedic Luly T84.54xA Infect/inflm 10:09a Services Of JOVANNI Guidry reaction due to C.M.A. internal left knee prosth, init Office Visit 11/01/2018 [facility] Devin Astudillo G06.1 Intraspinal 12:31p For Infectious [place]que[place], abscess and Diseases M.D. granuloma M25.562 Pain in left knee Z96.652 Presence of left artificial knee joint R78.81 Bacteremia B95.1 Streptococcus, group B, causing diseases classd elswhr Office Visit 11/01/2018 Orthopedic Nghiaakira Garcia, T84.54xA Infect/inflm 3:20p Services Of reaction due to C.M.A. internal left knee prosth, init Office Visit 10/31/2018 [facility] G06.2 Extradural and 1:04p Assoc,pc Henna, DISTRICT BRANCH MANAGER subdural abscess, Hospitalists unspecified N17.9 Acute kidney failure, unspecified I10 Essential (primary) hypertension E87.1 Hypo-osmolality and hyponatremia E11.9 Type 2 diabetes mellitus without complications M53.2x6 Spinal instabilities, lumbar region K59.00 Constipation, unspecified Office Visit 10/30/2018 1:04p [facility] Isa G06.2 Extradural and Assoc,davidson Gasca D.O. subdural abscess, Hospitalists unspecified E87.1 Hypo-osmolality and hyponatremia N17.9 Acute kidney failure, unspecified E11.9 Type 2 diabetes mellitus without complications D64.9 Anemia, unspecified Office Visit 10/30/2018 12:13p [facility] Devin Astudillo G06.1 Intraspinal Infectious Keith Uribe abscess and Diseases granuloma G95.29 Other cord compression R78.81 Bacteremia Z96.641 Presence of right artificial hip joint E11.9 Type 2 diabetes mellitus without complications Office Visit 10/30/2018 Neurosurgery Vassilios G06.1 Intraspinal 7:00a Services Of Allen Freeman MD abscess and granuloma M53.2x6 Spinal instabilities, lumbar region Office Visit 08/21/2018 11:30a [facility] Yolanda Daly Z47.1 Aftercare Assoc,pc N.P. following joint Hospitalists replacement surgery Z96.641 Presence of right artificial hip joint E87.1 Hypo-osmolality and hyponatremia N17.9 Acute kidney failure, unspecified I10 Essential (primary) hypertension E11.9 Type 2 diabetes mellitus without complications Office Visit 08/20/2018 11:30a [facility] Yolandalibra Daly Z47.1 Aftercare Assoc,pc N.P. following joint Hospitalists replacement surgery Z96.641 Presence of right artificial hip joint E87.1 Hypo-osmolality and hyponatremia N17.9 Acute kidney failure, unspecified I10 Essential (primary) hypertension E11.9 Type 2 diabetes mellitus without complications Office Visit 08/19/2018 [facility] Crystal Z47.1 Aftercare 11:29a Assoc,davidson Mathis NP following joint Hospitalists replacement surgery Z96.641 Presence of right artificial hip joint E87.1 Hypo-osmolality and hyponatremia I10 Essential (primary) hypertension E11.9 Type 2 diabetes mellitus without complications N17.9 Acute kidney failure, unspecified Office Visit 08/18/2018 [facility] Crystal Z96.641 Presence of 11:23a Assoc,davidson Mathis NP right artificial Hospitalists hip joint Z47.1 Aftercare following joint replacement surgery I10 Essential (primary) hypertension E11.9 Type 2 diabetes mellitus without complications E87.1 Hypo-osmolality and hyponatremia N17.9 Acute kidney failure, unspecified Office Visit 08/17/2018 11:07a 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 bilateral upper limbs Office Visit 10/26/2017 8:00a [facility] M67.441 Ganglion, right Services Of MD Jac hand C.M.A. 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 L97.822 Non-prs chronic ulcer oth prt l low leg w fat layer exposed I87.313 Chronic venous hypertension w ulcer of bilateral low extrm I10 Essential (primary) hypertension Office Visit 03/07/2017 12:10p Wound Care Blanca Castro, E11.621 Type 2 diabetes Center AT [facility] HEIDI RN, PHARMACY ORDER ENTRY TECHNICIAN-BC mellitus with foot ulcer L97.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 L97.822 Non-prs chronic ulcer oth prt l low leg w fat layer exposed R60.0 Localized edema M79.662 Pain in left lower leg I87.2 Venous insufficiency (chronic) (peripheral) Office Visit 03/03/2017 10:55a Wound Care Blanca Castro, E11.621 Type 2 diabetes Center AT [facility] JOHN GORDON, PHARMACY ORDER ENTRY TECHNICIAN-BC mellitus with foot ulcer L97.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 left lower limb Diseases Z96.652 Presence of left artificial knee joint Office Visit 06/30/2016 [facility] Alysha Boo, L03.116 Cellulitis of 2:18p davidson De Guzman M.D. left lower limb Hospitalists E11.621 Type 2 diabetes mellitus with foot ulcer R65.20 Severe sepsis without septic shock Office Visit 06/29/2016 9:16a [facility] Devin Astudillo L03.116 Cellulitis of For Halle Uribe M.D. left lower limb Diseases Z96.652 Presence of left artificial knee joint I87.2 Venous insufficiency (chronic) (peripheral) E11.40 Type 2 diabetes mellitus with diabetic neuropathy, unsp Office Visit 06/28/2016 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 at [facility]04/10/2019 1:45 pm - JOVANNI [place] at [facility]04/10/2019 1:45 pm - Denis Bermudez PA-C at [facility]04/10/2019 1:45 pm - Alejandra Castanon M.D. at [facility]04/19/2019 10:00 am - Abi Veliz NP at [facility]32/14/2019 1:00 pm - Estephania Freeman MD at [facility]03/30/2019 - Alejandra Castanon M.D.T84.54xD Infection and inflammatory reaction due to internal left kneFollow up:Follow up: 2 weeks after jeyjxmdO92.562 Pain in left kneeM25.462 Effusion, left knee
--- OUTSIDE RECORDS SUMMARY | 2019-04-10 11:44 | XMS REPORT | Continuity of Care Document ---
:1945 External Reference #:[id number] Author Name Leesa Tish Care Team Providers Name Role Phone Odalys Adames MD Primary Care Physician Unavailable Payers Date Identification Numbers Payment Provider Subscriber Policy Number: [id number] [employer] Ashia Herrera PayID: [id number] [address] [address] Expires: 2018 Policy Number: [id number] [facility] Ashia Herrera Group Number: [id number] [address] PayID: [id number] [address] [address] Effective: 2017 Policy Number: [id number] [employer] Ashia Herrera Onset: 2017 Group Name: Sheron [phone] [address] PayID: [id number] [place] [address] Advance Directives Description No Information Available Problems Date Description Provider Status Onset: 07/07/2018 Localized, primary osteoarthritis Alejandra Castanon M.D. Active Onset: 07/07/2018 Localized, primary osteoarthritis of the Alejandra Castanon M.D. Active pelvic region and thigh Onset: 07/07/2018 Arthroplasty of knee Alejandra Castanon M.D. Active Onset: 09/25/2018 Prosthetic arthroplasty of the hip Alejandra Castanon M.D. Active Onset: 03/12/2019 Infection and inflammatory reaction due Alejandra Castanon M.D. 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 ETOH Use Denies alcohol use Tobacco Use Start: Unknown Patient has never smoked Smoking Status Reviewed: 03/12/19 Patient has never smoked Exercise Type/Frequency Exercises [...] Active Tablets 30mg 30tab 1 by mouth Paul s every day MD Jac Januvia 10/26 Active Tablets 30mg 90tab 1 by mouth Paul s every day MD Jac Metformin HCL Active Tablets 500mg 1 by mouth Unknown /0000 twice a day Furosemide Active Tablets 20mg 1 by mouth Unknown /0000 every day Hydrochlorothiazid Active Capsules 12.5mg 1 by mouth Unknown e /0000 every day Ibuprofen Active Tablets 200mg 4 tabs by Unknown /0000 mouth as needed Oxycodone HCL Active Unknown /0000 Amlodipine Active Tablets 10mg 1 by mouth Unknown Besylate /0000 every day Omeprazole Active Capsules 20mg 1 by mouth Unknown /0000 DR every day Ferrousul Active Tablets 325(65Fe) 1 tab by Unknown /0000 mg mouth once a day Hydrocodone-Acetam Active Tablets 10-325mg 1 tab by Unknown inophen /0000 mouth every 4 hours as needed Ascorbic Acid Active Tablets 500mg 1 by mouth Unknown /0000 every day Eliquis Active Tablets 5mg 1 by mouth Unknown /0000 twice a day Magnesium Active Unknown /0000 Calcium Active Unknown /0000 Amoxicillin 12/27 Hx Capsules 500mg 90cap 1 by mouth Devin s three times D. - a day Rony 02/25 (orders M.D. /2018 written on [facility] consult form) Colace 08/21 Hx Capsules 100mg 90cap 1 [...] /0000 every 6 - hours as 09/24 needed Ibuprofen Hx Tablets 200mg as needed Unknown /0000 - 08/06 Ceftriaxone Sodium Hx Solution 2gm 2 grams Unknown /0000 Rec daily iv at - [facility] x 12/27 56 days /2018 Immunizations Description No Information Available Vital Signs Date Vital Result Comment 03/12/2019 11:58am Height 68 inches 5'8" Heart [...] H/L Range Note Comp Metabolic Panel 01/08/2019 [facility] Sodium 134 mmol/L Low 135-[address] [place] [address] [phone] Potassium 4.6 mmol/L N 3.5-5.0 Chloride 99 [...] Egfr 124.0 >60 2 Laboratory test 01/08/2019 [facility] C Reactive 10.33 mg/L High <8.01 [address] [place] [address] [phone] CBC Auto Diff 01/08/2019 [facility] White Blood 8.1 N 3.5- 10.[address] Count 10^3/[place] [address] [phone] Red Blood Count 4.40 10^6/uL N 4.00-5.40 [...] Cells % 0.1 CBC Auto Diff 01/01/2019 [facility] White Blood 7.3 10^3/uL N 3.5-10.[address] [place] [address] [phone] Red Blood Count 4.58 10^6/uL N 4.00-5.40 [...] Cells % 0 Comp Metabolic Panel 01/01/2019 [facility] Sodium 133 mmol/L Low 135-[address] [place] [address] [phone] Potassium 4.4 mmol/L N 3.5-5.0 Chloride 96 [...] Egfr 117.0 >60 5 Laboratory test 01/01/2019 [facility] C Reactive 9.51 mg/L High <8.01 [address] [place] [address] [phone] Basic Metabolic 12/06/2018 [facility] Sodium 128 Low 135-145 [address] mmol/[place] [address] [phone] Chloride 97 mmol/L Low 101-111 Co2 Carbon Dioxide 24 mmol/L N 22-32 Glucose 116 mg/dL High 70-100 Blood Urea Nitrogen 15 mg/dL N 6-24 Creatinine 0.91 mg/dL N 0.51-0.95 BUN/Creatinine Ratio 16.5 N 8-20 Calcium 9.1 mg/dL N 8.6-10.3 Egfr Non- 60.9 >60 Egfr 73.7 >60 8 Potassium 5.5 mmol/L High 3.5-5.0 Anion Gap 7 mmol/L N 2-11 Laboratory test 12/06/2018 [facility] Osmolality 280 mOsm/kg N 275-295 [address] [place] [address] [phone] CBC Auto Diff 11/13/2018 [facility] White Blood 7.0 10^3/uL N 3.5-10.[address] [place] [address] [phone] Red Blood Count 3.41 10^6/uL Low 4.00-5.40 [...] Cells % 0.1 Comp Metabolic Panel 11/13/2018 [facility] Sodium 131 mmol/L Low 135-[address] [place] [address] [phone] Potassium 4.8 mmol/L N 3.5-5.0 Chloride 94 [...] Egfr 117.0 >60 11 Laboratory test 11/13/2018 [facility] C Reactive 58.17 mg/L High <8.01 [address] Protein [place], [place] [address] [phone] Urine Culture And 08/07/2018 [facility] Urine SEE RESULT [address] [place] [address] [phone] Type & Screen 08/07/2018 [facility] Patient A Positive [address] Blood Type [place], [place] [id number] [phone] Antibody Screen NEGATIVE Laboratory test 08/07/2018 [facility] Partial 30.1 seconds N 26.0-36.[address] [place] [address] PTT [phone] Inr/Protime 08/07/2018 [facility] Inr 0.87 N 0.77-1.[address] [place], [place] [address] [phone] Urinalysis 08/07/2018 [facility] Urine Color Straw Profile [address] [place] [address] [phone] Urine Appearance Clear Urine Specific [place] 1.005 Low 1.010-1.030 Urine pH 7.0 N [...] Cell Present Abnormal Absent Laboratory test 02/13/2018 [facility] Point of Care 134 mg/dL High 70-100 [address] Glucose [place], [place] [address] [phone] Laboratory test 01/23/2018 [facility] Point of Care 133 mg/dL High 70-100 [address] Glucose [place], [place] [address] [phone] Laboratory test 10/24/2017 [facility] Surgical SEE RESULT [address] Pathology BELOW [place], [place] [address] [phone] Wound 04/11/2017 [facility] Wound/Misc SEE RESULT 17 Culture/Sensi [address] [place] [address] Stain [phone] Wound 03/03/2017 [facility] Wound/Misc SEE RESULT 18, 19 Culture/Sensi [address] [place] [address] Stain [phone] 1 [facility] - Floor: 1, Rm #: 146A [id number] 2 Because ethnic data is not always [...] 5 Kidney failure <15 (or dialysis) 3 [facility] - Floor: 1, Rm #: 146A [id number] 5 Because ethnic data is not always [...] 5 Kidney failure <15 (or dialysis) 6 [id number] 7 [facility] - Floor: 1, Rm #: 146A [id number] 8 Because ethnic data is not always [...] 5 Kidney failure <15 (or dialysis) 9 [facility] - Floor: 1, Rm #: 146A [id number] 10 [facility] - Floor: 1, Rm #: 146A [id number] 11 Because ethnic data is not always [...] 5 Kidney failure <15 (or dialysis) 12 [facility] - Floor: 1, Rm #: 146A [id number] 13 SEE RESULT BELOW Name: ASHIA HERRERA: [address]: Alejandra Castanon MD Acct: [id number] Unit: [id number] AGE: 73 Location: PAT Re08/07/18 SEX: F Status: REG REF SPEC: [id number] LUKE: 08/07/18-[address]: Alejandra Castanon MD REQ: [id number] RECD: 08/07/18 STATUS: COMP _ SOURCE: URINE SPDESC: ORDERED: Urine Culture QUERIES: Urine Source: Clean Catch Procedure Result Reported Site Urine Culture Final 08/08/18- 1246 ML No growth of clinically significant organisms * - Main Lab . END OF REPORT DEPARTMENT OF PATHOLOGY, [address] [place] [address] Richard Browning M.D. Director JAYDEN # [id number] Human Performance Professor: [id number] Human Performance Professor: [id number] 16 SEE RESULT BELOW Name: ASHIA HERRERA : [address]: Amina Solomon MD Acct: [id number] Unit: [id number] AGE: 72 Location: WOUND Re10/24/17 SEX: F Status: REG REF SPEC: [id number] LUKE: 10/24/17 [facility] DR: Amina Solomon MD REQ: [id number] RECD: 10/24/17 STATUS: JUAN ESTRADA DR: Ashlee [...] at Main Lab DEPARTMENT OF PATHOLOGY, [address] [place] [address] Richard Browning M.D. Director [facility] # [id number] 17 SEE RESULT BELOW Name: SHARON,ASHIA M : [address]: Ashlee Arvizu MD Acct: [id number] Unit: [id number] AGE: 71 Location: WOUND Re04/11/17 SEX: F Status: REG REF SPEC: [id number] LUKE: 04/11/17-50 [facility] DR: Ashlee Arvizu MD REQ: [id number] RECD: 04/11/17 STATUS: COMP [facility] DR: Blanca Castro SHEET METAL FABRICATOR Odalys Adames MD _ SOURCE: FOOT,LEFT SPDESC: [...] at Main Lab DEPARTMENT OF PATHOLOGY, [address] [place] [address] Richard Browning M.D. Director [facility] # [id number] 18 LEFT MEDIAL FOOT ULCER 19 SEE RESULT BELOW Name: ASHIA HERRERA : [address]: Ashlee Arvizu MD Acct: [id number] Unit: [id number] AGE: 71 Location: WOUND Re03/03/17 SEX: F Status: REG REF SPEC: [id number] LUKE: 03/03/17 [facility] DR: Blanca Castro NP REQ: [id number] RECD: 03/03/17 STATUS: TYLOR ESTRADA DR: Ashlee [...] at Main Lab DEPARTMENT OF PATHOLOGY, [address] [place] [address] Richard Browning M.D. Director [facility] # [id number] Procedures Date Code Description Status 02/22/2019 10527 Removal Devitalization Tissue Wound Less Than Equal 20 Completed Square CM 02/15/2019 94517 Removal Devitalization Tissue Wound Less Than Equal 20 Completed Square CM 02/08/2019 05117 Removal Devitalization Tissue Wound Less Than Equal 20 Completed Square CM 01/25/2019 59038 Removal Devitalization Tissue Wound Less Than Equal 20 Completed Square CM 11/02/2018 13087 Removal Of Prosthesis, Incl TKR Prosthesis,W Or W/O Completed Insert Spacer 11/02/2018 78345 Removal Of Prosthesis, Incl TKR Prosthesis,W Or W/O Completed Insert Spacer 11/02/2018 01507 Removal Of Prosthesis, Incl TKR Prosthesis,W Or W/O Completed Insert Spacer 11/02/2018 51991 Removal Of Prosthesis, Incl TKR Prosthesis,W Or W/O Completed Insert Spacer 11/02/2018 47746 Removal Of Prosthesis, Incl TKR Prosthesis,W Or W/O Completed Insert Spacer 11/01/2018 18347 ECHO Transthorasic Realtime 2D W Doppler & Color Flow Completed [facility] 10/31/2018 64840 Non-Segmental Instrumentation Posterior 1 Interspace Completed 10/31/2018 98104 Non-Segmental Instrumentation Posterior 1 Interspace Completed 10/31/2018 30241 Non-Segmental Instrumentation Posterior 1 Interspace Completed 10/31/2018 07047 Non-Segmental Instrumentation Posterior 1 Interspace Completed 10/31/2018 62696 Stereotactic Computer-Assisted, Spinal Completed 10/31/2018 46895 Stereotactic Computer-Assisted, Spinal Completed 10/31/2018 13945 Laminectomy;For Intraspinal Lesion/Lumbar Completed 10/31/2018 37325 Laminectomy;For Intraspinal Lesion/Lumbar Completed 10/31/2018 43637 Laminectomy;For Intraspinal Lesion/Lumbar Completed 10/31/2018 13563 Laminectomy;For Intraspinal Lesion/Lumbar Completed 10/31/2018 32200 Use Of Operating Microscope Completed 10/31/2018 34023 Use Of Operating Microscope Completed 08/17/2018 25059 THR Total Hip Replacement Completed 08/17/2018 52923 THR Total Hip Replacement Completed 02/13/2018 63618 Carpal Tunnel Release Completed 02/13/2018 23059 Carpal Tunnel Release Completed 02/13/2018 73169 Carpal Tunnel Release Completed 01/23/2018 12281 Carpal Tunnel Release Completed 01/23/2018 50731 Carpal Tunnel Release Completed 01/23/2018 35714 Carpal Tunnel Release Completed 10/26/201789676 Aspiration &/Or Inj Of Ganglion Cyst(S) Any Location Completed 10/26/201771954 Aspiration &/Or Inj Of Ganglion Cyst(S) Any Location Completed 10/26/201750101 Aspiration &/Or Inj Of Ganglion Cyst(S) Any Location Completed 10/24/2017 72544 Removal Devitalization Tissue Wound Less Than Equal 20 Completed Square CM 03/28/2017 84879 Removal Devitalization Tissue Wound Less Than Equal 20 Completed Square CM 03/07/2017 10266 Removal Devitalized Tissue Wound Greater Than 20 Square Completed CM 03/07/2017 08353 Removal Devitalization Tissue Wound Less Than Equal 20 Completed Square CM 03/03/2017 28610 Removal Devitalization Tissue Wound Less Than Equal 20 Completed Square CM 10/06/2015 15266637 Mammogram Completed 09/25/2015 99877239 Mammogram Completed 11/17/2012 37161408 Mammogram Completed 11/14/2012 90295281 Mammogram Completed 03/08/2012 82940168 Mammogram Completed Encounters Type Date Location Provider Dx Diagnosis Office Visit 03/12/2019 Orthopedic Alejandra Castanon, T84.54xD Infect/inflm 11:15a Services Of Porsha Parker reaction due to internal left knee prosth, subs M46.26 Osteomyelitis of vertebra, lumbar region B95.1 Streptococcus, group B, causing diseases classd elswhr M25.562 Pain in left knee M25.462 Effusion, left knee Office Visit 03/02/2019 [facility] Abi Harding M46.26 Osteomyelitis of 11:00a For Infectious Veliz, SHEET METAL FABRICATOR vertebra, lumbar Diseases region G06.1 Intraspinal abscess and granuloma E11.622 Type 2 diabetes mellitus with other skin ulcer T84.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, subs Office Visit 03/01/2019 1:00p Wound Care Manuel Berry E11.9 Type 2 diabetes [facility] Keith Schaffer mellitus without complications M46.26 Osteomyelitis of vertebra, lumbar region G06.1 Intraspinal abscess and granuloma I10 Essential (primary) hypertension Office Visit 01/30/2019 10:50a [facility] Keanu Astudillo E11.622 Type 2 Infectious Keith Uribe diabetes Diseases mellitus with other skin ulcer M46.26 Osteomyelitis of vertebra, lumbar region G06.1 Intraspinal abscess and granuloma Office Visit 01/25/2019 12:45p Wound Care Manuel Berry L98.429 Non-pressure [facility] Keith Schaffer chronic ulcer of back with unspecified severity E11.622 Type 2 diabetes mellitus with other skin ulcer M46.26 Osteomyelitis of vertebra, lumbar region G06.1 Intraspinal abscess and granuloma I10 Essential (primary) hypertension Office Visit 12/27/2018 [facility] Devin Astudillo T84.54xD Infect/inflm 10:50a For Infectious Keith Uribe reaction due to Diseases internal left knee prosth, subs M46.26 Osteomyelitis of vertebra, lumbar region G06.1 Intraspinal abscess and granuloma Z79.2 care home (current) use of antibiotics Office Visit 12/18/2018 [facility] Armani Astudillo M25.451 Effusion, right 10:03a Assocdav[facility]son M.D.,FACP hip Hospitalists M25.151 Fistula, right hip T84.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, subs I82.402 Acute embolism and thombos unsp deep veins of l low extrem D64.9 Anemia, unspecified E11.69 Type 2 diabetes mellitus with other specified complication Office Visit 12/17/2018 [facility] I82.409 Acute embolism 10:03a Assocdav[facility]son M.D. and [facility] Hospitalists unsp deep vn unsp lower extremity M25.551 Pain in right hip D64.9 Anemia, unspecified I10 Essential (primary) hypertension Z96.641 Presence of right artificial hip joint T84.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, subs E11.69 Type 2 diabetes mellitus with other specified complication Office Visit 12/16/2018 [facility] I82.409 Acute embolism 10:02a Assocdavidson M.D. and [facility] Hospitalists unsp deep vn unsp lower extremity M25.551 Pain in right hip D64.9 Anemia, unspecified I10 Essential (primary) hypertension Z96.641 Presence of right artificial hip joint T84.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, subs E11.69 Type 2 diabetes mellitus with other specified complication Office Visit 12/15/2018 10:02a [facility] Susan M25.551 Pain in Assoc,davidson Kelly, SHEET METAL FABRICATOR right hip Hospitalists D64.9 Anemia, unspecified G06.2 Extradural and subdural abscess, unspecified I10 Essential (primary) hypertension T84.54xA Infect/inflm reaction due to internal left knee prosth, init E11.69 Type 2 diabetes mellitus with other specified complication I82.409 Acute embolism and thombos unsp deep vn unsp lower extremity Office Visit 12/15/2018 [facility] Devin Astudillo T84.54xA Infect/inflm 10:41a For Infectious [...] Of Porsha BAIG Office Visit 12/14/2018 10:33a [facility] Devin Astudillo M86.651 Other chronic Infectious Keith Uribe osteomyelitis, Diseases right thigh E11.69 Type 2 diabetes mellitus with other specified complication M46.26 Osteomyelitis of vertebra, lumbar region M46.46 Discitis, unspecified, lumbar region T84.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, subs Office Visit 12/14/2018 10:01a [facility] Susan M25.551 Pain in Assoc,davidson Kelly, MARILOU right hip Hospitalists D64.9 Anemia, unspecified G06.2 Extradural and subdural abscess, unspecified I10 Essential (primary) hypertension T84.54xA Infect/inflm reaction due to internal left knee prosth, init E11.69 Type 2 diabetes mellitus with other specified complication I82.409 Acute embolism and thombos unsp deep vn unsp lower extremity Office Visit 12/13/2018 [facility] Scott B95.1 Streptococcus, group 10:01a Assoc,JOVANNI Marr B, causing diseases Hospitalists classd elswhr T84.54xA [...] following joint replacement surgery Office Visit 11/27/2018 [facility] Alysha T81.89xA Oth complications 10:23a Assoc,davidson Boo M.D. of procedures, Hospitalists NEC, init G06.1 Intraspinal abscess and granuloma Office Visit 11/17/2018 [facility]opedic Nghia Jose, T84.54xA Infect/inflm 2:30p Services Of MD reaction due to C.M.A. internal left knee prosth, init M25.551 Pain in right hip [facility] A[facility].1 Sepsis due to 1:07p Assocdav[facility]son M.D. streptococcus, group Hospitalists B G06.2 Extradural and subdural abscess, unspecified T84.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, subs I10 Essential (primary) hypertension D63.8 Anemia in other chronic diseases classified elsewhere B85.0 Pediculosis due to Pediculus humanus capitis D72.829 Elevated white blood cell count, unspecified E86.0 Dehydration N17.9 Acute kidney failure, unspecified Office Visit 11/09/2018 1:07p [facility] G06.2 Extradural and Assocdavidson M.D. subdural abscess, Hospitalists unspecified T84.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, subs D64.9 Anemia, unspecified I10 Essential (primary) hypertension E11.9 Type 2 diabetes mellitus without complications B85.2 Pediculosis, unspecified Office Visit [facility]08[facility]2018 [facility] G[facility].1 Intraspinal Infectious Keith Uribe abscess and Diseases granuloma T84.54xA Infect/inflm reaction due to internal left knee prosth, init E11.9 Type 2 diabetes mellitus without complications R19.7 Diarrhea, unspecified Office Visit 11/08/2018 1:07p [facility] G06.2 Extradural and Assocdavidson M.D. subdural abscess, Hospitalists unspecified T84.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, subs D64.9 Anemia, unspecified I10 Essential (primary) hypertension E11.9 Type 2 diabetes mellitus without complications B85.2 Pediculosis, unspecified Office 11/07/2018 [facility] T84.54xD Infect/inflm Visit 1:07p Assocdavidson M.D. reaction due to Hospitalists internal left [...] 2 diabetes mellitus without complications Office 11/06/2018 [facility] T84.54xD Infect/inflm Visit 1:06p davidson De Guzman M.D. 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, unspecified I10 Essential (primary) hypertension B85.2 Pediculosis, unspecified E11.9 Type 2 diabetes mellitus without complications Office 11/05/2018 [facility] T84.54xD Infect/inflm Visit 1:06p davidson De Guzamn M.D. 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, unspecified I10 Essential (primary) hypertension B85.2 Pediculosis, unspecified E11.9 Type 2 diabetes mellitus without complications Office Visit 11/04/2018 [facility] T84.54xD Infect/inflm 1:05p davidson De Guzman DKeo. 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, unspecified N17.9 Acute kidney failure, unspecified I10 Essential (primary) hypertension K59.00 Constipation, unspecified B85.2 Pediculosis, unspecified Office Visit 11/03/2018 [facility] T84.54xA Infect/inflm 1:05p davidson De Guzman D.O. 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, unspecified N17.9 Acute kidney failure, unspecified E11.9 Type 2 diabetes mellitus without complications I10 Essential (primary) hypertension K59.00 Constipation, unspecified B85.2 Pediculosis, unspecified Office Visit 11/02/2018 [facility] 1:05p Assoc,pc Leticia, SHEET METAL FABRICATOR Hospitalists Office Visit 11/01/2018 [facility] G06.2 Extradural and 1:05p Assoc,pc Henna, SHEET METAL FABRICATOR subdural abscess, Hospitalists unspecified M43.26 Fusion of spine, lumbar region N17.9 Acute kidney failure, unspecified I10 Essential (primary) hypertension E11.9 Type 2 diabetes mellitus without complications B85.2 Pediculosis, unspecified K59.00 Constipation, unspecified Office Visit 11/01/2018 [facility] L[facility] T84.54xA Infect/inflm 10:09a Services Of JOVANNI Guidry reaction due to C.M.A. internal left knee prosth, init Office Visit 11/01/2018 [facility] Devin Astudillo G06.1 Intraspinal 12:31p For Infectious [place], abscess and Diseases M.D. granuloma M25.562 Pain in left knee Z96.652 Presence of left artificial knee joint R78.81 Bacteremia B95.1 Streptococcus, group B, causing diseases classd elswhr Office Visit 11/01/2018 Orthopedic Nghia Garcia, T84.54xA Infect/inflm 3:20p Services Of reaction due to C.M.A. internal left knee prosth, init Office Visit 10/31/2018 [facility] G06.2 Extradural and 1:04p Assoc,pc Henna, SHEET METAL FABRICATOR subdural abscess, Hospitalists unspecified N17.9 Acute kidney failure, unspecified I10 Essential (primary) hypertension E87.1 Hypo-osmolality and hyponatremia E11.9 Type 2 diabetes mellitus without complications M53.2x6 Spinal instabilities, lumbar region K59.00 Constipation, unspecified Office Visit 10/30/2018 1:04p [facility] G06.2 Extradural and Assoc,pc Fantasma [place] subdural abscess, Hospitalists unspecified E87.1 Hypo-osmolality and hyponatremia N17.9 Acute kidney failure, unspecified E11.9 Type 2 diabetes mellitus without complications D64.9 Anemia, unspecified Office Visit 10/30/2018 12:13p [facility] For Devin Astudillo G06.1 Intraspinal Infectious Keith Uribe abscess and Diseases granuloma G95.29 Other cord compression R78.81 Bacteremia Z96.641 Presence of right artificial hip joint E11.9 Type 2 diabetes mellitus without complications Office Visit 10/30/2018 Neurosurgery Vassilios G06.1 Intraspinal 7:00a Services Of Allen Freeman MD abscess and granuloma M53.2x6 Spinal instabilities, lumbar region Office Visit 08/21/2018 11:30a [facility] Yolanda Addy, Z47.1 Aftercare Assoc,pc N.P. following joint Hospitalists replacement surgery Z96.641 Presence of right artificial hip joint E87.1 Hypo-osmolality and hyponatremia N17.9 Acute kidney failure, unspecified I10 Essential (primary) hypertension E11.9 Type 2 diabetes mellitus without complications Office Visit 08/20/2018 11:30a [facility] Yolanda Addy Z47.1 Aftercare Assoc,pc N.P. following joint Hospitalists replacement surgery Z96.641 Presence of right artificial hip joint E87.1 Hypo-osmolality and hyponatremia N17.9 Acute kidney failure, unspecified I10 Essential (primary) hypertension E11.9 Type 2 diabetes mellitus without complications Office Visit 08/19/2018 [facility] Crystal Z47.1 Aftercare 11:29a Assoc,davidson Mathis NP following joint Hospitalists replacement surgery Z96.641 Presence of right artificial hip joint E87.1 Hypo-osmolality and hyponatremia I10 Essential (primary) hypertension E11.9 Type 2 diabetes mellitus without complications N17.9 Acute kidney failure, unspecified Office Visit 08/18/2018 [facility] Crystal Z96.641 Presence of 11:23a Assoc,davidson Mathis NP right artificial Hospitalists hip joint Z47.1 Aftercare following joint replacement surgery I10 Essential (primary) hypertension E11.9 Type 2 diabetes mellitus without complications E87.1 Hypo-osmolality and hyponatremia N17.9 Acute kidney failure, unspecified Office Visit 08/17/2018 11:07a [facility] Frantz Rebollar, E11.9 Type 2 diabetes Assoc,davidson [...] Center AT [facility], RN, AOC PLANS INTELLIGENCE OFFICER-BC mellitus with foot ulcer L97.522 Non-prs chronic [...] [facility] RN, AOC PLANS INTELLIGENCE OFFICER-BC mellitus with foot ulcer L97.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 left lower limb Diseases Z96.652 Presence of left artificial knee joint Office Visit 06/30/2016 [facility] Alysha Boo, L03.116 Cellulitis of 2:18p Assdavidson davies M.D. left lower limb Hospitalists E11.621 Type 2 diabetes mellitus with foot ulcer R65.20 Severe sepsis without septic shock Office Visit 06/29/2016 9:16a [facility] Devin Astudillo L03.116 Cellulitis of For Halle Uribe M.D. left lower limb Diseases Z96.652 Presence of left artificial knee joint I87.2 Venous insufficiency (chronic) (peripheral) E11.40 Type 2 diabetes mellitus with diabetic neuropathy, unsp Office Visit 06/28/2016 [facility] Sveta L03.116 Cellulitis of 2:16p Assocdavidson NP left lower limb Hospitalists I83.12 Varicose veins of left lower extremity with inflammation I83.11 Varicose veins of right lower extremity with inflammation A41.9 Sepsis, unspecified organism Plan of Treatment Future Appointment(s):03/30/2019 10:30 am - Alejandra Castanon M.D. at [facility]04/19/2019 10:00 am - Abi Veliz NP at [facility] For Infectious Smnmrwkt58/14/2019 1:00 pm - Estephania Freeman MD at Neurosurgery Services [facility]03/12/2019 - Alejandra Castanon M.D.T84.54xD Infection and inflammatory reaction due to internal left kneFollow up:Follow up: 7-10 days before fqxjievF38.26 Osteomyelitis of vertebra, lumbar adelubJ86.1 Streptococcus, group B, as the cause of diseases ervgozkbutW11.562 Pain in left kneeNew Xrays:Knee Left 1-2 VWS, Ordered: 03/12/19M25.462 Effusion, left knee
[2019-04-10] MEDS ORDERED: ceFAZolin 2 GM PREMIX in ORs 2 GM/50 ML BAG IVPB ONE (11:52)
[2019-04-10] MEDS ORDERED: Buffered Lidocaine 1% SYRIN* 1 ML/SYRINGE INTRADERM ONE (11:53)
[2019-04-10] MEDS ORDERED: Lidocaine 2% PF * 5 ML VIAL ONE (11:59)
[2019-04-10] MEDS ORDERED: ROPIVACAINE 5 MG/ML 30 ML BTL (0.5%) ONE (13:31)
[2019-04-10] MEDS ORDERED: Dexamethasone IV* 4 MG/ML 1 ML (4 MG) ONE (14:09)
[2019-04-10] MEDS ORDERED: KETAMINE HCL* 50 MG/ML 10 ML VIAL ONE (14:09)
[2019-04-10] MEDS ORDERED: Ondansetron INJ* 2 MG/ML VIAL ONE (14:13)
[2019-04-10] MEDS ORDERED: Ketorolac INJ* 30 MG/ML 1 ML VIAL ONE (14:13)
[2019-04-10] MEDS ORDERED: Metoclopramide IV* 5 MG/ML 2 ML VIAL ONE (14:13)
[2019-04-10] MEDS ORDERED: Rocuronium* 10 MG/ML VIAL ONE (14:15)
[2019-04-10] MEDS ORDERED: DiMENhydriNATE IV* 50 MG/ML VIAL IV PUSH PRN (14:22)
[2019-04-10] MEDS ORDERED: Naloxone* 0.4 MG/ML 1 ML VIAL IV PRN (14:22)
[2019-04-10] MEDS ORDERED: Acetaminophen IV 1GM/100ML * 100 ML ONE (16:39)
[2019-04-10] MEDS ORDERED: Glycopyrrolate IV* 0.2 MG/ML 1 ML VIAL ONE (16:46)
[2019-04-10] MEDS ORDERED: Neostigmine Methylsulfate* 1 MG/ML 10 ML VIAL (1 mg/ml) ONE (16:46)
[2019-04-10] MEDS ORDERED: HYDROmorphone INJ1* 1 MG/ML SYRINGE ONE ×2 (16:54→17:56)
[2019-04-10] MEDS ORDERED: Midazolam* 1 MG/ML 2 ML VIAL (2 MG) ONE (17:03)
[2019-04-10] MEDS ORDERED: fentaNYL* 50 MCG/ML 2 ML VIAL (100 MCG VIAL) ONE (17:03)
[2019-04-10] MEDS ORDERED: Ondansetron INJ* 2 MG/ML VIAL IV PRN (17:41)
[2019-04-10] MEDS ORDERED: Magnesium Hydroxide LIQ* 30 ML UDC PO PRN ×2 (17:41→17:54)
[2019-04-10] MEDS ORDERED: diPHENhydraMINE PO* 25 MG PO PRN (17:41)
[2019-04-10] MEDS ORDERED: Morphine 4 MG/ML VIAL (1 ml) 4 MG/ML VIAL IV PRN (17:41)
[2019-04-10] MEDS ORDERED: Bisacodyl SUPP* 10 MG SUPP PR PRN (17:41)
[2019-04-10] MEDS ORDERED: Calcium Carbonate CHEW TAB* 500 MG (TUMS) PO PRN (17:54)
[2019-04-10] MEDS ORDERED: oxyCODONE TAB* 5 MG TAB ONE ×2 (17:56→18:01)
[2019-04-10] MEDS: HYDROmorphone INJ1* 1 MG/ML SYRINGE IV PRN ×5 (17:57→18:45)
[2019-04-10] MEDS: oxyCODONE TAB* 5 MG TAB PO PRN ×2 (17:57→18:02)
[2019-04-10] MEDS ORDERED: Lactated Ringers 1000 ML Bag* 1,000 ML IV SCH (18:00)
[2019-04-10] MEDS ORDERED: metFORMIN* 500 MG TAB PO SCH (18:00)
[2019-04-10] MEDS ORDERED: Dextrose 50% Syringe 50 ML* 25 GM/50 ML SYRINGE IV PUSH PRN (19:50)
--- NOTE | 2019-04-10 21:02 | CONS ---
HOSPITAL MEDICINE CONSULTATION REPORT: DATE OF CONSULT: 04/10/19 PROVIDER: Susan Kelly NP ATTENDING PHYSICIAN: Dr. Castanon. CONSULTING PHYSICIAN: Dr. Paul Feliciano (dictated by Susan Kelly NP). REASON FOR CONSULT: Co-management of chronic medical conditions. HISTORY OF PRESENT ILLNESS: Ms. Leon is a 73-year-old female with a past medical history significant for breast cancer, hypertension, type 2 diabetes, history of a DVT, history of epidural abscess, who presented to [facility] on 04/10/19 for revision of her left total knee. Ms. Leon had a left total knee arthroplasty, which became infected. The implants were removed and antibiotic spacer was placed. She completed her IV antibiotics and was cleared by infectious disease to continue with revision of the left total knee arthroplasty and removal of the cement spacer. So, she presented to [facility] to have this procedure done today. Please see dictated H and P by JOVANNI Cervantes for complete details. In the postoperative period, the patient has no complaints. She is resting in the bed in PACU. Hospital Medicine was asked to consult due to her chronic medical conditions. The patient denies any fever, chills, nausea, vomiting, chest pain. She denies any cough, hemoptysis, or shortness of breath. No nausea, vomiting, diarrhea, abdominal pain, gross hematuria, or dysuria. She denies any focal weakness or sensory loss. Denies any visual complaints, dysphagia, arthralgias, myalgias, rashes, lesions, open sore. Denies any psychosis or anxiety. Due to her chronic conditions of hypertension and diabetes, we were asked to help co-manage her care during this hospitalization. PAST MEDICAL HISTORY: 1. History of breast cancer. 2. Hypertension. 3. Type 2 diabetes. 4. History of DVT. 5. History of epidural abscess. 6. History of left knee prosthetic infection. PAST SURGICAL HISTORY: 1. Lumpectomy. 2. . 3. Left total knee arthroplasty. 4. I and D of the left total knee arthroplasty with hardware removal and antibiotic spacer. 5. Right total knee arthroplasty. 6. I and D of the lumbar epidural abscess. MEDICATIONS: Home medications include: 1. Metformin 500 mg p.o. b.i.d. 2. Lisinopril 20 mg p.o. daily. 3. Amlodipine 10 mg p.o. daily. 4. Januvia 50 mg p.o. daily. 5. Omeprazole 20 mg p.o. daily. 6. Ferrous sulfate 325 mg p.o. daily. 7. Vitamin D3, 5000 units p.o. daily. 8. Ascorbic acid 500 mg p.o. daily. 9. Eliquis 5 mg p.o. b.i.d. 10. Magnesium oxide 800 mg p.o. daily. 11. Calcium carbonate 500 mg p.o. t.i.d. 12. Hydrocodone/acetaminophen 1 tab 4 times a day. 13. Tylenol 650 q.6 hours as needed. 14. Milk of magnesia 30 mL p.o. b.i.d. p.r.n. 15. Lactulose 30 mL p.o. daily p.r.n. constipation. ALLERGIES: She has an allergy to LATEX and ADHESIVE. FAMILY HISTORY: Mother with a history of an NE, at the age of 72. Mother with a history of diabetes. No reported history of cancer. SOCIAL HISTORY: Denies any tobacco, alcohol, or illicit drug use. She is single. Surrogate decision maker in the event she is unable to make her own decisions is her sister, Jovany or Enmanuel. She is a full code. REVIEW OF SYSTEMS: An 11-point review of systems is completed, all pertinent positives are mentioned in the HPI, otherwise were negative. PHYSICAL EXAM: General: At this time, Ms. Leon is a 73-year-old female, she is resting comfortably on the bed in PACU. She is in no acute distress. Vital Signs: Heart rate is 63, respirations are 16, O2 saturation 100% on 3 L, blood pressure 108/54. HEENT: Head is atraumatic, normocephalic. Eyes: EOMS are intact. Sclerae anicteric and not pale. Oral mucosa appeared to be moist. Neck is supple. Lungs are clear to auscultation bilaterally. No wheezes, rales , or rhonchi. Cardiac: S1 and S2. Regular rate and rhythm. No murmurs, rubs, or gallops. Abdomen: Obese, soft and nontender. Bowel sounds are present x4. Extremities: She can move all 4 extremities. There is no clubbing or cyanosis. Pedal pulses are +2 bilaterally. Skin is intact. She does have a dressing that is dry and intact to the left knee. Neurologic: She is awake, alert, oriented x3. Speech is clear. Thought process is intact. There are no gross focal deficits. Psych: The patient is alert and oriented x3. She is calm and cooperative. DIAGNOSTIC STUDIES/LAB DATA: WBCs on 04/09/19 were 7.5, RBCs 4.46, hemoglobin 11.9, hematocrit was 36, platelet count was 200. INR on 04/04/19 was 1.10. On 04/09/19, sodium 138, potassium 4.8, chloride 103, carbon dioxide is 27, anion gap was 8, BUN was 21, creatinine 0.73, glucose was 116. Calcium was 9.4. ASTs were 15, ALTs were 15, alkaline phosphatase was 68. Urine color was cloudy , pH was 6.0, specific gravity 1.017. Urine protein, ketones, blood, nitrites, bilirubin, and urobilinogen were all negative. Leukocyte esterase was 3+, wbc' s were 3+, rbc's were 2+, squamous epithelial cells were present. Bacteria was absent. Glucose was negative. Ascorbic acid was negative. ASSESSMENT AND PLAN: Ms. Leon is a 73-year-old female with past medical history significant for breast cancer, hypertension, diabetes, who presented to [facility] for an elective revision of the left total knee, status post hardware infection. Our recommendations are as follows: 1. Status post left total knee revision, management per Orthopedics, PT/OT per Orthopedics, bowel regimen per Orthopedics, DVT prophylaxis per Orthopedics. 2. Hypertension. I will hold her lisinopril as she is low normal with systolic blood pressure in the 110s. She can continue her amlodipine with holding parameters for blood pressure less than 100. 3. Diabetes. I will hold her Januvia and metformin. I will place her on a lispro sliding scale with fingersticks a.c. 4. Gastroesophageal reflux disease. She will continue on her omeprazole 20 mg p.o. daily. 5. History of deep vein thrombosis. The patient should resume Eliquis as soon as possible as the patient does have high risk as she has had a previous deep vein thrombosis. 6. FEN. She can have consistent carb diet. 7. DVT prophylaxis. Per Orthopedics. 8. Code status. She is a full code. TIME SPENT: Time spent on this consultation was 45 minutes; greater than half that time was spent at the bedside reviewing events leading thus far to her hospitalization, performing my physical exam, and reviewing my plan of care. I have discussed with my attending Dr. Paul Feliciano; he is in agreement with my plan. SUSAN KELLY, RESERVATIONS SPECIALIST [id number]/CPS #: [id number] GUMARO
[2019-04-10] MEDS: Acetaminophen TAB* 325 MG PO SCH (21:31)
[2019-04-10] MEDS: oxyCODONE/Acetamin 5/325 MG* TAB PO PRN (21:31)
[2019-04-10] MEDS: Docusate CAP* 100 MG PO SCH (21:32)
[2019-04-10] MEDS: Magnesium Hydroxide LIQ* 30 ML UDC PO SCH (21:32)
[2019-04-10] MEDS: ceFAZolin 1 GM ADVAN(*) 1 GM in NS 0.9% 50 ML* 50 ML IVPB SCH (22:04)
--- NOTE | 2019-04-10 23:48 | OP ---
DATE OF OPERATION: 04/10/19 - ROOM #347 DATE OF : 49 ATTENDING SURGEON: Alejandra Castanon MD NET DEVELOPER CONSULTANT: JOVANNI Cervantes. Ms. Carbajal did help throughout the procedure with preparation of the leg, wound retraction, manipulation of the knee, and wound closure. ANESTHESIOLOGIST: Dr. Beltran. ANESTHESIA: General. PRE-OP DIAGNOSIS: Left knee with cement spacer after infection of the total knee arthroplasty. POST-OP DIAGNOSIS: Left knee with cement spacer after infection of the total knee arthroplasty. OPERATIVE PROCEDURE: Left removal of antibiotic cement spacer and revision total knee arthroplasty, all three components - tibia, femur, and patella. TOURNIQUET TIME: 73 minutes. COMPLICATIONS: None. ESTIMATED BLOOD LOSS: 400 cc. SPECIMENS: Intraoperative frozen section was sent and had 1 neutrophil per 50 high power field per pathology, multiple culture swabs were sent for cultures and sensitivities. Bone and cartilages sent to Pathology. HARDWARE USED: DePuy TC3 revision total knee cemented hardware. For the femur a size 4 left TC3 cemented Sigma femoral component. There was an 8 mm distal augment laterally, 4 mm distal augment medially. There was a 5- degree femoral adapter with neutral bolt and a 75 x 18 mm fluted stem. For the tibia a size 3 MBT tibial revision rotating platform tray was used. This was cemented. There was also a size 37 mm MBT revision metaphyseal sleeve and for the stem a 75 x 14 mm fluted stem. The insert used was a 12.5 mm size 4 rotating platform insert and for the patella, a 32 3-peg oval dome patella was used. Two packages of Simplex cement with tobramycin were used. BRIEF HISTORY/INDICATIONS: Ms. Leon is a 73-year-old female who developed an infection of her left total knee arthroplasty back in October. On 11/02/18 , I did perform and open I and D of the infected total knee arthroplasty with explant of the hardware and antibiotic cement spacer. Over the last 6 months, the patient has been on extensive IV antibiotics. Last month Dr. Neff did deem her a clear of infection in the left knee and she was cleared by her medical doctors to proceed with revision surgery. The patient and I discussed removal of antibiotic spacer and revision of the left total knee arthroplasty. The rest of the surgery were discussed with her. She understood the risks of surgery included but were not limited to bleeding, infection, damage to nearby structures, continued pain, need for further surgery, intraoperative fractures, nerve palsy, hardware failure or loosening, knee stiffness, loss of motion, stroke, heart attack, blood clot, and . She wished to proceed. INTRAOPERATIVE FINDINGS: Intraoperatively the patient had extensive scar formation. Therefore, a V-Y extensor mechanism take down was performed to facilitate exposure. This was repaired at the end of the case. The patient had no obvious purulence. She had extensive bone loss along the medial tibial plateau and along the lateral femoral condyle distally. DESCRIPTION OF PROCEDURE: Ms. Leon was identified in the preanesthesia unit. Her left lower extremity was marked as the correct operative site. Informed consent was signed and placed in the chart. The patient was taken to the operating room and placed under general anesthesia. Vogt catheter was placed. Tourniquet was placed on the left thigh. Left lower extremity was prepped and draped in the usual sterile fashion. Preop time-out was made to correctly identify the patient, side, and site. Appropriate perioperative antibiotics were given within 1 hour of incision. Tourniquet was inflated. The patient's prior midline incision was used. I dissected sharply down to the extensor mechanism. New 10-blade was used to make a medial parapatellar arthrotomy. There was minimal joint fluid and this was collected with culture swabs. There was extensive scar formation in the entire knee joint, medial and lateral gutters, suprapatellar pouch, and peripatellar region. Electrocautery was used to perform a wide scar excision. Soft tissue was elevated off the superomedial tibia. At this point, I can flex the knee only to 20 degrees. This was not enough to perform a revision surgery. Decision was made to perform a V-Y take down of the quadriceps tendon. Sharp knife was used to perform the V-Y take down and the patella was then carefully subluxed laterally. The knee was flexed up. A small oscillating saw was used to make some cuts along the cement spacer. Cement spacer was carefully removed. Any remaining cement was carefully removed from around the bone and implant. Soft tissue and fibrous debris was carefully removed using a rongeur. The tibial canal was carefully opened with a starting reamer. Hand reaming was performed up to size 14. A clean up cut was made along the lateral tibial plateau. There was extensive bone loss along the medial tibial plateau. Metaphyseal sleeve broaching was carried out up to a size 37. The 37 broach had excellent fit and stability. Tibia was sized to a size 3. Size 3 tibial tray with a 14 x 75 mm stem had excellent fit and stability. The bone was well covered. Next attention was given to placing the femoral implant. There was significant bone loss along the lateral femoral condyle distally. Canal finder was used to enter the femoral canal. Hand reaming was performed up to a size 18 mm broach. This was left in while a distal cutting block was pinned to the distal femur. Clean up cuts were made. It was determined we would have an 8 mm distal augment laterally and 4 mm distal augment medially. The size 4 multi-cutting jig was then pinned into place and any clean up cuts were made. The size 4 multi-cutting jig was removed. The TC3 box guide was then pinned into position and reciprocating saw was used to make box cut. A size 4 with the appropriate augment trial with a 75 x 18 mm stem trial was placed and had excellent fit on the distal femur. A 12.[address] and the knee was taken through a range of motion. The knee had full extension and good flexion with good stability medially and laterally. The patella was everted. Scar tissue and fibrous tissue was carefully removed from the patella. A clean-up cut was made along the patella. Patella was sized to a size 32. Three peg holes were drilled through the guide. Trial patella was placed and taken through a range of motion. The patella was satisfactory. All trials were carefully removed. The bone was copiously irrigated with sterile saline. The proper implants were assembled. Using Simplex tobramycin cement the final implants were cemented into place starting with the tibia, followed by the femur, and last the patella. A 12.5 mm insert trial was placed and the knee was brought out into full extension. The cement was allowed to fully cure. Any excess cement was carefully removed from around the implant. Once the cement had fully cured, the insert trial was removed. Any excess cement around the capsule and hardware was carefully removed. Final insert chosen was a 12.5 size 4 TC3 rotating platform polyethylene insert. This was placed without difficulty. Electrocautery was used to obtain meticulous hemostasis. The knee was copiously irrigated with sterile saline. A #5 Ethibonds were used to repair the V-Y take down of the quadriceps tendon. This was performed using Krackow type stitch. The repair was without abnormality or complication. Next #5 Ethibonds and #1 Vicryls were used to perform the extensor mechanism, peripatellar arthrotomy. The rest of the incision was closed in a layered fashion using 0 and 2-0 Vicryls. Skin was closed using running nylon sutures. Sterile Xeroform, 4x4s, and Webril were used to cover the incision. The patient's knee was placed in a knee immobilizer. She will be weightbearing as tolerated and full extension for the next month while the quadriceps repair heals. The patient's anesthesia was reversed without difficulty. She was taken to the PACU in stable condition. Intended DVT prophylaxis will be Eliquis. [id number]/CPS #: [id number] GUMARO
[2019-04-11] MEDS: oxyCODONE/Acetamin 5/325 MG* TAB PO PRN ×5 (02:25→19:38)
[2019-04-11] MEDS: Acetaminophen TAB* 325 MG PO SCH ×3 (04:46→19:36)
[2019-04-11] MEDS: ceFAZolin 1 GM ADVAN(*) 1 GM in NS 0.9% 50 ML* 50 ML IVPB SCH ×2 (06:06→13:24)
[2019-04-11] MEDS ORDERED: Lisinopril TAB* 10 MG PO SCH (09:00)
[2019-04-11] MEDS ORDERED: amLODIPine TAB* 5 MG PO SCH (09:00)
[2019-04-11] MEDS ORDERED: Sitagliptin (NF) 50 MG TAB PO SCH (09:00)
[2019-04-11] MEDS: Pantoprazole TAB * 40 MG TAB PO SCH (09:19)
[2019-04-11] MEDS: Cholecalciferol TAB* 1000 UNITS PO SCH (09:20)
[2019-04-11] MEDS: Ascorbic Acid TAB* 500 MG PO SCH (09:21)
[2019-04-11] MEDS: Docusate CAP* 100 MG PO SCH ×2 (09:21→20:02)
[2019-04-11] MEDS: amLODIPine TAB* 5 MG PO SCH (09:21)
[2019-04-11] MEDS: Apixaban* 5 MG TAB PO SCH ×2 (09:21→20:02)
[2019-04-11] MEDS: Magnesium Oxide TAB* 400 MG PO SCH (09:22)
[2019-04-11] MEDS: Ferrous Sulfate TAB* 325 MG PO SCH (09:22)
[2019-04-11] MEDS: Magnesium Hydroxide LIQ* 30 ML UDC PO SCH ×3 (09:22→20:04)
[2019-04-11] MEDS: Vitamin THERAPEUTIC TAB PO SCH (09:22)
[2019-04-11 09:53] LABS: Hematocrit 26 % (35-47); Hemoglobin 8.5 g/dL (12.0-16.0); Mean Platelet Volume 7.3 fL (7.4-10.4); Platelet Count 185 10^3/uL (150-450)
--- NOTE | 2019-04-11 09:54 | PN ---
Subjective Date of Service: 04/11/19 Objective Active Medications: Acetaminophen (Tylenol Tab*) 975 mg PO Q8H [facility] Amlodipine Besylate (Norvasc Tab*) 10 mg PO 0900 [facility] Apixaban (Eliquis*) 5 mg PO BID [facility] Ascorbic Acid (Vitamin C Tab*) 500 mg PO 0900 [facility] Bisacodyl (Dulcolax Supp*) 10 mg MD DAILY PRN Calcium Carbonate (Tums*) 500 mg PO TID PRN Cholecalciferol (Vitamin D Tab*) 5,000 units PO 0900 [facility] Dextrose (D50w Syringe 50 Ml*) 12.5 gm IV PUSH .FOR FS < 60 - SS PRN Diphenhydramine HCl (Benadryl Po*) 25 mg PO Q6H PRN Docusate Sodium (Colace Cap*) 100 mg PO BID [facility] Ferrous Sulfate (Ferrous Sulfate Tab*) 325 mg PO 0900 [facility] Cefazolin Sodium 1 gm/ Sodium (Chloride) 50 mls @ 200 mls/hr IVPB Q8H [facility] Lactated Ringer's (Lactated Ringers 1000 Ml Bag*) 1,000 mls @ 100 mls/hr IV PER RATE [facility] Insulin Human Lispro (Humalog*) 0 units SUBCUT AC ZANE; Protocol Lactulose (Lactulose*) 30 ml PO Q6H PRN Magnesium Hydroxide (Milk Of Magnesia Liq*) 30 ml PO BID ZANE Magnesium Hydroxide (Milk Of Magnesia Liq*) 30 ml PO Q6H PRN Magnesium Oxide (Magox 400 Tab*) 800 mg PO 0900 [facility] Morphine Sulfate (Morphine 4 Mg/Ml Vial (1 Ml)) 2 mg IV Q2H PRN Multivitamins (Theragran Tab*) 1 tab PO DAILY [facility] Ondansetron HCl (Zofran Inj*) 4 mg IV Q6H PRN Oxycodone/Acetaminophen (Percocet 5/325 Tab*) 1 tab PO Q3H PRN Oxycodone/Acetaminophen (Percocet 5/325 Tab*) 2 tab PO Q4H PRN Pantoprazole Sodium (Protonix Tab*) 20 mg PO DAILY [facility] Vital Signs: Temp Pulse Resp BP Pulse Ox 98.0 F 77 16 107/48 98 04/11/19 07:37 04/11/19 07:37 04/11/19 07:37 04/11/19 07:37 04/11/19 07:37 Oxygen Devices in Use Now: Nasal Cannula Microbiology and Other Data: . Assess/Plan/Problems-Billing Assessment: Ms. Leon is a 73 yo F with a PMH of HTN, DM, DVT, breast cancer and who was admitted on 04/10/19 for a revision of Left total knee replacement due to complications of infection. - Patient Problems (1) Status post revision of total replacement of left knee Comment: - POD # 1 s/p revision left knee replacement. Had explant of infected left knee hardware and antibiotic cement spacer placement on 11/02/18. (2) HTN (hypertension) Comment: - Well controlled - Continue amlodipine, hold lisinopril this AM, resume tomorrow if SBP > 110 (3) Anemia Comment: - Chronic, stable. Likely anemia of chronic disease. (4) Type II diabetes mellitus Comment: - BG 220s - Hold metformin, januvia, Continue lispro sliding scale. (5) DVT prophylaxis Comment: - Hx of DVT, now on Eliquis (6) Full code status Comment:
[2019-04-11 10:15] LABS: BUN/Creatinine Ratio 22.7 (8-20); Calcium 8.4 mg/dL (8.6-10.3); EGFR African American 92.2 (>60); EGFR Non-African American 76.2 (>60); Potassium 4.5 mmol/L (3.5-5.0)
[2019-04-11] MEDS: Insulin LISPRO* 1 UNITS UNIT SUBCUT SCH ×3 (10:47→18:05)
--- NOTE | 2019-04-11 13:45 | PN ---
Progress Note - Progress Note Date of Service: 04/11/19 SOAP: Subjective: []Liz was seen this morning, She is feeling well. Knee pain is well controlled , she did transfer from bed to chair this morning but had not yet had formal PT when I saw her. Denies chest pain, shortness of breath, dizziness, nause.a Objective: []General: Appears well, NAD LLE: immobilizer in place, thigh is soft, dressing CDI. DF/PF intact, DP 2+, sensation intact to light touch distally Calves supple and nontender without erythema, edema or palpable cords Assessment: []Left removal of antibiotic cement spacer and revision total knee arthroplasty , all three components - tibia, femur, and patella. Plan: []WBAT in full extension in immobilizer for the next month. Leg is to be kept in extension in immobilizer at all times Dressing change by ortho 04/12 eliquis 5 mg po BID for DVT prophylaxis Anticipate Return to [facility] 04/12 or 04/13 Repeat sodium tomorrow for hyponatremia Vital Signs Temp 98.0 F 04/11/19 07:37 Pulse 77 04/11/19 07:37 Resp 18 04/11/19 10:49 BP 107/48 04/11/19 07:37 Pulse Ox 98 04/11/19 07:37 Intake & Output 04/10/19 04/11/19 04/11/19 18:59 06:59 18:59 Intake Total 1350 940 55 Output Total 1000 Balance 1350 -60 55 Weight 217 lb Intake: IV Fluids 1350 55 ABX - CEFAZOLIN 55 LR 1300 NS 50ML, Cefazolin 2G 50 IVPB 100 ABX - CEFAZOLIN 100 Oral 840 Output: Vogt 1000 Other: # Bowel Movements 0 Estimated Blood Loss MINIMAL Comment Laboratory Last Values Hgb 8.5 g/dL (12.0-16.0) L 04/11/19 09:45 Hct 26 % (35-47) L 04/11/19 09:45 Plt Count 185 10^3/uL (150-450) 04/11/19 09:45 MPV 7.3 fL (7.4-10.4) L 04/11/19 09:45 Sodium 131 mmol/L (135-145) L 04/11/19 09:45 Potassium 4.5 mmol/L (3.5-5.0) 04/11/19 09:45 Chloride 99 mmol/L (101-111) L 04/11/19 09:45 Carbon Dioxide 27 mmol/L (22-32) 04/11/19 09:45 Anion Gap 5 mmol/L (2-11) 04/11/19 09:45 BUN 17 mg/dL (6-24) 04/11/19 09:45 Creatinine 0.75 mg/dL (0.51-0.95) 04/11/19 09:45 Est GFR ( Amer) 92.2 (>60) 04/11/19 09:45 Est GFR (Non-Af Amer) 76.2 (>60) 04/11/19 09:45 BUN/Creatinine Ratio 22.7 (8-20) H 04/11/19 09:45 Glucose 218 mg/dL (70-100) H 04/11/19 09:45 POC Glucose (mg/dL) 230 mg/dL (70-100) H 04/11/19 11:25 Calcium 8.4 mg/dL (8.6-10.3) L 04/11/19 09:45
--- NOTE | 2019-04-11 15:12 | PN ---
Subjective Date of Service: 04/11/19 Interval History: Ms. Leon reports that she if feeling well this morning. She does have some knee pain but states that is has thus far been well-controlled on the current pain medication regimen. She denies chest pain, SOB, nausea, or abdominal pain. Objective Active Medications: Acetaminophen (Tylenol Tab*) 975 mg PO Q8H ZANE Amlodipine Besylate (Norvasc Tab*) 10 mg PO 0900 ZANE Apixaban (Eliquis*) 5 mg PO BID ZANE Ascorbic Acid (Vitamin C Tab*) 500 mg PO 0900 ZANE Bisacodyl (Dulcolax Supp*) 10 mg FL DAILY PRN Calcium Carbonate (Tums*) 500 mg PO TID PRN Cholecalciferol (Vitamin D Tab*) 5,000 units PO 0900 ZANE Dextrose (D50w Syringe 50 Ml*) 12.5 gm IV PUSH .FOR FS < 60 - SS PRN Diphenhydramine HCl (Benadryl Po*) 25 mg PO Q6H PRN Docusate Sodium (Colace Cap*) 100 mg PO BID ZANE Ferrous Sulfate (Ferrous Sulfate Tab*) 325 mg PO 0900 [facility] Lactated Ringer's (Lactated Ringers 1000 Ml Bag*) 1,000 mls @ 100 mls/hr IV PER RATE [facility] Insulin Human Lispro (Humalog*) 0 units SUBCUT AC ZANE; Protocol Lactulose (Lactulose*) 30 ml PO Q6H PRN Magnesium Hydroxide (Milk Of Magnesia Liq*) 30 ml PO BID ZANE Magnesium Hydroxide (Milk Of Magnesia Liq*) 30 ml PO Q6H PRN Magnesium Oxide (Magox 400 Tab*) 800 mg PO 0900 [facility] Morphine Sulfate (Morphine 4 Mg/Ml Vial (1 Ml)) 2 mg IV Q2H PRN Multivitamins (Theragran Tab*) 1 tab PO DAILY [facility] Ondansetron HCl (Zofran Inj*) 4 mg IV Q6H PRN Oxycodone/Acetaminophen (Percocet 5/325 Tab*) 1 tab PO Q3H PRN Oxycodone/Acetaminophen (Percocet 5/325 Tab*) 2 tab PO Q4H PRN Pantoprazole Sodium (Protonix Tab*) 20 mg PO DAILY [facility] Vital Signs: Temp Pulse Resp BP Pulse Ox 98.0 F 77 18 107/48 98 04/11/19 07:37 04/11/19 07:37 04/11/19 10:49 04/11/19 07:37 04/11/19 07:37 Oxygen Devices in Use Now: Nasal Cannula Appearance: Female lying in bed in NAD Eyes: No Scleral Icterus Ears/Nose/Mouth/Throat: Mucous Membranes Moist Neck: Trachea Midline Respiratory: Symmetrical Chest Expansion and Respiratory Effort, Clear to Auscultation Cardiovascular: NL Sounds; No Murmurs; No JVD, No Edema Abdominal: NL Sounds; No Tenderness; No Distention Extremities: No Edema, - - left knee in immobilizer Skin: No Rash or Ulcers Neurological: Alert and Oriented x 3, NL Muscle Strength and Tone Nutrition: Taking PO's Result Diagrams: 04/11/19 09:45 04/11/19 09:45 Microbiology and Other Data: . Assess/Plan/Problems-Billing Assessment: Ms. Leon is a 73 yo F with a PMH of HTN, DM, DVT, breast cancer and who was admitted on 04/10/19 for a revision of Left total knee replacement due to complications of infection. - Patient Problems (1) Status post revision of total replacement of left knee Comment: - POD # 1 s/p revision left knee replacement. Had explant of infected left knee hardware and antibiotic cement spacer placement on 11/02/18. (2) HTN (hypertension) Comment: - Well controlled - Continue amlodipine, hold lisinopril this AM, resume tomorrow if SBP > 110 (3) Anemia Comment: - Chronic, stable. Likely anemia of chronic disease. (4) Type II diabetes mellitus Comment: - BG 220s - Hold metformin, januvia - Increased sliding scale, add lantus if remains elevated (5) DVT prophylaxis Comment: - Hx of DVT, now on Eliquis (6) Full code status Comment: Status and Disposition: Inpatient. Dispo per ortho, anticipate return to [facility].
[2019-04-12] MEDS: oxyCODONE/Acetamin 5/325 MG* TAB PO PRN ×3 (00:35→09:49)
[2019-04-12] MEDS: Acetaminophen TAB* 325 MG PO SCH ×2 (05:39→12:53)
[2019-04-12 06:39] LABS: Hematocrit 24 % (35-47); Hemoglobin 7.8 g/dL (12.0-16.0); Mean Platelet Volume 7.9 fL (7.4-10.4); Platelet Count 138 10^3/uL (150-450)
[2019-04-12] MEDS: Magnesium Hydroxide LIQ* 30 ML UDC PO SCH (09:28)
[2019-04-12] MEDS: Insulin LISPRO* 1 UNITS UNIT SUBCUT SCH ×2 (09:28→11:44)
[2019-04-12] MEDS: Docusate CAP* 100 MG PO SCH (09:29)
[2019-04-12] MEDS: Magnesium Oxide TAB* 400 MG PO SCH (09:29)
[2019-04-12] MEDS: Ascorbic Acid TAB* 500 MG PO SCH (09:29)
[2019-04-12] MEDS: amLODIPine TAB* 5 MG PO SCH (09:29)
[2019-04-12] MEDS: Vitamin THERAPEUTIC TAB PO SCH (09:29)
[2019-04-12] MEDS: Cholecalciferol TAB* 1000 UNITS PO SCH (09:29)
[2019-04-12] MEDS: Apixaban* 5 MG TAB PO SCH (09:29)
[2019-04-12] MEDS: Ferrous Sulfate TAB* 325 MG PO SCH (09:29)
[2019-04-12] MEDS: Pantoprazole TAB * 40 MG TAB PO SCH (09:29)
[2019-04-12] MEDS ORDERED: oxyCODONE TAB* 5 MG TAB PO PRN ×2 (09:51)
--- NOTE | 2019-04-12 11:29 | DS ---
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 Hospital Course: ASHIA was admitted to [facility] on 04/10/19. Patient underwent a [Left removal of antibiotic cement spacer and revision total knee arthroplasty, all three components - tibia, femur, and patella.] without complication followed by a brief recovery in PACU and transfer to the Short Stay Surgical Unit in stable condition. Our hospitalist service, physical therapy and occupational therapy also participated in this patients care. Post- op day 1: patient was alert and in no acute distress. Dressing was clean, dry and intact. Operative extremity dorsiflexion and plantarflexion intact, sensation intact to light touch distally, DP2+. Post-op day two: dressing was changed, incision was clean, dry and intact. Patient was deemed to be medically and orthopedically stable for discharge to [facility]. Home Medications Medication Instructions Recorded Confirmed Type Cholecalciferol (Vitamin D3) 5,000 unit PO 0900 06/23/18 04/10/19 History [Vitamin D3] Lactulose* 30 ml PO DAILY PRN c 11/09/18 04/04/19 Rx Acetaminophen TAB* [Tylenol TAB*] 650 mg PO Q6H PRN 11/27/18 04/04/19 History Ferrous Sulfate TAB* 325 mg PO 0900 11/27/18 04/10/19 History Omeprazole CAP (NF) [Prilosec CAP* 20 mg PO DAILY@0700 11/27/18 04/10/19 History 20 MG] Ascorbic Acid TAB* [Vitamin C 500 mg PO 0900 12/13/18 04/10/19 History TAB*] Lisinopril TAB* [Prinivil TAB 10 20 mg PO 0900 12/13/18 04/10/19 History MG*] Magnesium Hydroxide LIQ* [Milk of 30 ml PO BID PRN 12/13/18 04/04/19 History Magnesia LIQ*] Sitagliptin (NF) [Januvia (NF)] 50 mg PO 0900 12/13/18 04/10/19 History amLODIPine TAB* [Norvasc 5 mg TAB*] 10 mg PO 0900 12/13/18 04/10/19 History metFORMIN* [Glucophage 500 MG TAB 500 mg PO 0900,1800 12/13/18 04/10/19 History *] Apixaban* [Eliquis*] 5 mg PO BID tab 12/18/18 04/10/19 Rx Calcium Carbonate [Tums] 500 mg PO TID PRN 04/04/19 04/10/19 History Magnesium Oxide TAB* [MagOx 400 800 mg PO 0900 04/04/19 04/10/19 History TAB*] Acetaminophen TAB* [Tylenol TAB*] 975 mg PO Q8H tab MDD 4000 mg 04/12/19 Rx Docusate CAP* [Colace Cap*] 100 mg PO BID cap 04/12/19 Rx oxyCODONE TAB* [Roxycodone TAB 5 5 mg PO Q4H PRN tab MDD 10 04/12/19 Rx mg*] oxyCODONE TAB* [Roxycodone TAB 5 10 mg PO Q4H PRN tab MDD 10 04/12/19 Rx mg*] oxyCODONE/Acetamin 5/325 MG* 1 tab PO Q3H PRN tab 04/12/19 Rx [Percocet 5/325 TAB*] oxyCODONE/Acetamin 5/325 MG* 2 tab PO Q4H PRN tab 04/12/19 Rx [Percocet 5/325 TAB*] Discharge Instructions following Orthopedic Surgery: Activity: * Weight Bearing as tolerated while wearing immobilizer with leg in full extension * leg is to remain straight in full extension at all times, wearing immobilizer. * Continue physical therapy and occupational therapy exercises as shown Wound care: * OK to shower on post-op day 3, no bathing, swimming, or submerging wound. * Use gentle soap, pat dry. Cover with gauze, ENRICO wrap or tape. * nurse to do wound checks. * Daily dressing change with gauze and enrico wrap. Must keep leg straight at all times please take caution and use two people for dressing changes. One to hold the leg in extension and one to do the dressing change. Call Orthopedic office for: * Increased drainage * Redness * Increased pain * Fever Go to ER with shortness of breath or chest pain. Diet: * Regular carb consistent diet * Increase fluids and fiber to prevent constipation. * Continue to use stool softeners, call office if no bowel motion within 48 hours. Medications See Home Medication List in your packet for medications that you should take after discharge. DVT Prophylaxis: Continue Eliquis Dosin mg, 1 tab every 12 hours for DVT prophylaxis as well as history of blood clot Pain Control: Percocet Dosin/325 mg 1-2 tabs by mouth every 4-6 hours as needed for pain. Maximum of 10 tabs per day. OR Oxycodone 5 mg 1-2 tabs every 4 hours as needed for pain, max 10 per day. Please hold both percocet and oxycodone for sedation. caution to avoid using more than 4000 mg tylenol in one day. wean off of narcotics as soon as pain allows. Antibiotics are required prior to any dental work. FOLLOW UP: Follow up with [Lg] Within 10-14 days, call for appointment Please call our office with any questions or concerns ([phone]) No RX needed SAMANTA Lua
[2019-04-12 11:50] VITALS: BP 115/53
== END 2019-04-12 14:20 | DRG 302 ==
LOC: AA 11:23 → SSU 20:29
PROVIDERS: ADMIT Orthopaedic Surgery Adult Reconstructive Orthopaedic Surgery; ATTEND Orthopaedic Surgery Adult Reconstructive Orthopaedic Surgery
PROC: 0SPD0JZ Removal of Synthetic Substitute from Left Knee Joint, Open Approach (ICD-10-PCS; 2019-04-10)
PROC: 0SRD0J9 Replacement of Left Knee Joint with Synthetic Substitute, Cemented, Open Approach (ICD-10-PCS; 2019-04-10)
PROC: 0SPD08Z Removal of Spacer from Left Knee Joint, Open Approach (ICD-10-PCS; principal; 2019-04-10 13:15)
DX: T84.54XA Infection and inflammatory reaction due to internal left knee prosthesis, initial encounter (principal); E87.1 Hypo-osmolality and hyponatremia; Z96.641 Presence of right artificial hip joint; Z96.652 Presence of left artificial knee joint; I10 Essential (primary) hypertension; Y79.2 Prosthetic and other implants, materials and accessory orthopedic devices associated with adverse incidents; K21.9 Gastro-esophageal reflux disease without esophagitis; M25.462 Effusion, left knee; D64.9 Anemia, unspecified; E11.51 Type 2 diabetes mellitus with diabetic peripheral angiopathy without gangrene; Z85.3 Personal history of malignant neoplasm of breast; Z91.040 Latex allergy status; Z91.048 Other nonmedicinal substance allergy status; Y92.9 Unspecified place or not applicable; Z84.1 Family history of disorders of kidney and ureter; Z86.718 Personal history of other venous thrombosis and embolism; Z82.49 Family history of ischemic heart disease and other diseases of the circulatory system; Z82.3 Family history of stroke; Z79.01 Long term (current) use of anticoagulants; Z79.84 Long term (current) use of oral hypoglycemic drugs
CPT/HCPCS: 36415; 76000; 80048; 84300; 85014; 85018; 85049; 87070; 87073; 87205; 88300; 88305; 88311; 88331; A9270-GY; C1776; G8978-GP-CK; G8979-GP-CI; G8987-GO-CL; G8988-GO-CI; J0690; J1100; J1170; J1885; J2250; J2270; J2405; J2710; J2765; J2795; J3010

== ENCOUNTER 2021-11-13 18:04 | Inpatient (IN) ==
[2021-11-13] MEDS ORDERED: Acetaminophen IV 1 GM/100ML 100 ML IV ONE (18:25)
[2021-11-13 18:44] LABS: ABS Lymphocytes 0.5 10^3/ul (1.0-4.8); ABS Monocytes 0.8 10^3/ul (0-0.8); ABS Neutrophils 18.6 10^3/ul (1.5-7.7); Eosinophil % 0.1 %; Hematocrit 33 % (35-47); Hemoglobin 10.8 g/dL (12.0-16.0); Lymphocyte % 2.4 %; Mean Corpuscular HGB Conc 33 g/dL (31-36); Mean Corpuscular Hemoglobin 28 pg (27-31); Mean Corpuscular Volume 84 fL (80-97); Mean Platelet Volume 8.6 fL (7.4-10.4); Platelet Count 135 10^3/uL (150-450); Red Blood Count 3.89 10^6 /uL (3.70-4.87); Red Cell Distribution Width 16 % (10-15); White Blood Count 19.8 10^3/uL (3.5-10.8)
[2021-11-13 18:51] LABS: INR 1.75 (0.86-1.15)
[2021-11-13 19:03] LABS: ALT 20 U/L (7-52); Albumin 2.7 g/dL (3.2-5.2); Albumin/Globulin Ratio 0.8 (1-3); Alkaline Phosphatase 107 U/L (35-149); Blood Urea Nitrogen 39 mg/dL (6-24); C Reactive Protein 157.27 mg/L (<8.01); CO2 Carbon Dioxide 21 mmol/L (22-32); Calcium 8.1 mg/dL (8.6-10.3); Chloride 93 mmol/L (101-111); Creatine Kinase 29 U/L (10-223); Globulin 3.3 g/dL (2-4); Glucose 143 mg/dL (70-100); Lipase 34 U/L (11.0-82.0); Sodium 125 mmol/L (135-145); eGFR CKD-EPI 28.8 (>60)
[2021-11-13] MEDS ORDERED: Lactated Ringers 1000 ml BAG 1,000 ML IV ONE (19:05)
[2021-11-13 19:07] LABS: Troponin I 0.06 ng/mL (<0.03)
[2021-11-13] MEDS ORDERED: Piperacillin/Tazobac ADVAN 3.375 GM in NS 0.9% 100 ml BAG 100 ML IV ONE (19:08)
[2021-11-13 19:42] LABS: AST 47 U/L (13-39); Anion Gap 11 mmol/L (2-11); Potassium 4.8 mmol/L (3.5-5.0)
[2021-11-14] MEDS ORDERED: Dextrose 50% Syringe 50 ml 25 GM/50 ML SYRINGE IV PUSH PRN (02:39)
[2021-11-14 03:13] LABS: Vitamin B12 528 pg/mL (180-914)
[2021-11-14] MEDS ORDERED: Lactated Ringers 1000 ml BAG 1,000 ML IV SCH (04:00)
[2021-11-14 04:10] LABS: Troponin I 0.04 ng/mL (<0.03)
[2021-11-14 06:16] LABS: Prealbumin 7 mg/dL (18-38)
[2021-11-14 07:47] LABS: Osmolality Serum 299 mOsm/kg (275-295)
[2021-11-14 08:47] LABS: ABS Basophils 0.1 10^3/ul (0-0.2); ABS Eosinophils 0.1 10^3/ul (0-0.6); ABS Lymphocytes 0.6 10^3/ul (1.0-4.8); ABS Monocytes 0.7 10^3/ul (0-0.8); ABS Neutrophils 15.8 10^3/ul (1.5-7.7); Eosinophil % 0.3 %; Hematocrit 36 % (35-47); Lymphocyte % 3.7 %; Mean Corpuscular HGB Conc 33 g/dL (31-36); Mean Corpuscular Hemoglobin 28 pg (27-31); Mean Corpuscular Volume 85 fL (80-97); Mean Platelet Volume 8.6 fL (7.4-10.4); Platelet Count 141 10^3/uL (150-450); Red Blood Count 4.27 10^6 /uL (3.70-4.87); Red Cell Distribution Width 16 % (10-15); White Blood Count 17.3 10^3/uL (3.5-10.8)
[2021-11-14] MEDS: Cholecalciferol (VIT D3) 1,000 unit TAB PO SCH (09:23)
[2021-11-14 09:25] LABS: ALT 16 U/L (7-52); Albumin 2.9 g/dL (3.2-5.2); Albumin/Globulin Ratio 0.8 (1-3); Alkaline Phosphatase 88 U/L (35-149); Blood Urea Nitrogen 39 mg/dL (6-24); CO2 Carbon Dioxide 23 mmol/L (22-32); Calcium 8.1 mg/dL (8.6-10.3); Chloride 93 mmol/L (101-111); Globulin 3.5 g/dL (2-4); Glucose 112 mg/dL (70-100); Sodium 127 mmol/L (135-145); Total Protein 6.4 g/dL (6.4-8.9); eGFR CKD-EPI 33.4 (>60)
[2021-11-14] MEDS: Enoxaparin 40 MG/0.4 ML SYR SUBCUT SCH (09:32)
[2021-11-14 09:53] LABS: Anion Gap 11 mmol/L (2-11)
[2021-11-14 12:01] LABS: Potassium Redraw 4.2 mmol/L (3.5-5.0)
[2021-11-14 16:51] LABS: Urine Osmo 580 mOsm/kg (150-1150)
[2021-11-14 16:53] LABS: Urine Appearance Clear; Urine Bilirubin Negative (Negative); Urine Blood 1+ (Negative); Urine Color Yellow; Urine Glucose Negative (Negative); Urine Ketones Trace (Negative); Urine Nitrite Negative (Negative); Urine Protein Negative (Negative); Urine Specific Gravity 1.018 (1.002-1.030); Urine Urobilinogen Negative (Negative)
[2021-11-14 16:57] LABS: Urine Bacteria Absent (Absent); Urine Red Blood Cell 2+(6-10/hpf) (Absent); Urine Squamous Epithelial Cell Present (Absent); Urine White Blood Cell 2+(11-20/hpf) (Absent)
[2021-11-14] MEDS: Calcium Carb (TUMS) 500 mg CHEW TAB PO PRN (20:27)
[2021-11-15] MEDS: Enoxaparin 40 MG/0.4 ML SYR SUBCUT SCH (08:48)
[2021-11-15] MEDS: Cholecalciferol (VIT D3) 1,000 unit TAB PO SCH (08:48)
[2021-11-15] MEDS: Calcium Carb (TUMS) 500 mg CHEW TAB PO PRN (10:23)
[2021-11-15 10:34] LABS: Calcium 8.2 mg/dL (8.6-10.3); Potassium 4.2 mmol/L (3.5-5.0); eGFR CKD-EPI 45.7 (>60)
[2021-11-15 11:12] LABS: ABS Basophils 0.1 10^3/ul (0-0.2); ABS Lymphocytes 0.6 10^3/ul (1.0-4.8); ABS Monocytes 0.8 10^3/ul (0-0.8); ABS Neutrophils 13.7 10^3/ul (1.5-7.7); Eosinophil % 0.3 %; Hematocrit 36 % (35-47); Hemoglobin 11.9 g/dL (12.0-16.0); Lymphocyte % 4.1 %; Mean Corpuscular HGB Conc 33 g/dL (31-36); Mean Corpuscular Hemoglobin 28 pg (27-31); Mean Corpuscular Volume 85 fL (80-97); Platelet Count 181 10^3/uL (150-450); Red Blood Count 4.25 10^6 /uL (3.70-4.87); Red Cell Distribution Width 17 % (10-15); White Blood Count 15.2 10^3/uL (3.5-10.8)
[2021-11-15] MEDS: Ondansetron 4 mg VIAL 2 MG/ML 2 ml VIAL IV PRN ×2 (17:01→22:11)
[2021-11-16 07:18] LABS: ABS Lymphocytes 0.6 10^3/ul (1.0-4.8); ABS Monocytes 0.7 10^3/ul (0-0.8); ABS Neutrophils 7.5 10^3/ul (1.5-7.7); Eosinophil % 0.5 %; Hematocrit 29 % (35-47); Hemoglobin 9.8 g/dL (12.0-16.0); Lymphocyte % 6.6 %; Mean Corpuscular HGB Conc 34 g/dL (31-36); Mean Corpuscular Hemoglobin 28 pg (27-31); Mean Corpuscular Volume 84 fL (80-97); Mean Platelet Volume 8.5 fL (7.4-10.4); Platelet Count 116 10^3/uL (150-450); Red Blood Count 3.46 10^6 /uL (3.70-4.87); Red Cell Distribution Width 16 % (10-15); White Blood Count 8.9 10^3/uL (3.5-10.8)
[2021-11-16 07:37] LABS: Calcium 7.6 mg/dL (8.6-10.3); Potassium 4.5 mmol/L (3.5-5.0); eGFR CKD-EPI 44.4 (>60)
[2021-11-16] MEDS: Enoxaparin 40 MG/0.4 ML SYR SUBCUT SCH ×2 (08:45→12:52)
[2021-11-16] MEDS: Cholecalciferol (VIT D3) 1,000 unit TAB PO SCH (09:00)
[2021-11-16] MEDS: Ondansetron 4 mg VIAL 2 MG/ML 2 ml VIAL IV PRN (09:01)
[2021-11-16 09:52] LABS: INR 1.27 (0.86-1.15)
[2021-11-16] MEDS ORDERED: Ondansetron ODT 4 mg TAB 4 MG TAB ONE (12:36)
[2021-11-16] MEDS: Ondansetron ODT 4 mg TAB 4 MG TAB PO PRN ×2 (12:41→22:38)
[2021-11-16] MEDS ORDERED: NS 0.9% 1000 ml BAG 1,000 ML IV SCH (16:15)
[2021-11-17 06:31] LABS: ABS Lymphocytes 0.6 10^3/ul (1.0-4.8); ABS Monocytes 0.8 10^3/ul (0-0.8); ABS Neutrophils 11.8 10^3/ul (1.5-7.7); Eosinophil % 0.2 %; Hematocrit 31 % (35-47); Hemoglobin 10.2 g/dL (12.0-16.0); Lymphocyte % 4.7 %; Mean Corpuscular HGB Conc 33 g/dL (31-36); Mean Corpuscular Hemoglobin 28 pg (27-31); Mean Corpuscular Volume 85 fL (80-97); Mean Platelet Volume 9.1 fL (7.4-10.4); Platelet Count 104 10^3/uL (150-450); Red Blood Count 3.67 10^6 /uL (3.70-4.87); Red Cell Distribution Width 17 % (10-15); White Blood Count 13.3 10^3/uL (3.5-10.8)
[2021-11-17 06:49] LABS: Calcium 7.6 mg/dL (8.6-10.3); Magnesium 1.9 mg/dL (1.9-2.7); Potassium 4.5 mmol/L (3.5-5.0); eGFR CKD-EPI 33.4 (>60)
[2021-11-17 08:48] LABS: Albumin 2.6 g/dL (3.2-5.2); Albumin/Globulin Ratio 0.9 (1-3); Globulin 2.8 g/dL (2-4); Total Bilirubin 0.7 mg/dL (0.2-1.0); Total Protein 5.4 g/dL (6.4-8.9)
[2021-11-17 08:58] LABS: Direct Bilirubin 0.1 mg/dL (0.03-0.18); Indirect Bilirubin 0.6 mg/dL (0.3-1.0)
[2021-11-17] MEDS: Enoxaparin 40 MG/0.4 ML SYR SUBCUT SCH (09:00)
[2021-11-17 09:07] LABS: C Reactive Protein 128.88 mg/L (<8.01)
[2021-11-17] MEDS: Cholecalciferol (VIT D3) 1,000 unit TAB PO SCH (09:14)
[2021-11-17] MEDS: Ondansetron ODT 4 mg TAB 4 MG TAB PO PRN ×3 (09:15→21:38)
[2021-11-17] MEDS: NS 0.9% 1000 ml BAG 1,000 ML IV SCH ×2 (09:19→21:39)
[2021-11-17] MEDS ORDERED: fentaNYL 100 mcg/2 ml 50 MCG/ML VIAL ONE (11:20)
[2021-11-17] MEDS: Calcium Carb (TUMS) 500 mg CHEW TAB PO PRN (14:28)
[2021-11-18 04:59] LABS: ABS Eosinophils 0.1 10^3/ul (0-0.6); ABS Lymphocytes 0.6 10^3/ul (1.0-4.8); ABS Monocytes 0.8 10^3/ul (0-0.8); Eosinophil % 0.8 %; Hematocrit 29 % (35-47); Hemoglobin 9.7 g/dL (12.0-16.0); Lymphocyte % 7.2 %; Mean Corpuscular HGB Conc 33 g/dL (31-36); Mean Corpuscular Hemoglobin 28 pg (27-31); Mean Corpuscular Volume 85 fL (80-97); Mean Platelet Volume 8.7 fL (7.4-10.4); Platelet Count 95 10^3/uL (150-450); Red Blood Count 3.42 10^6 /uL (3.70-4.87); Red Cell Distribution Width 17 % (10-15); White Blood Count 8.6 10^3/uL (3.5-10.8)
[2021-11-18 05:11] LABS: Calcium 7.3 mg/dL (8.6-10.3); Potassium 4.3 mmol/L (3.5-5.0); eGFR CKD-EPI 45.2 (>60)
[2021-11-18] MEDS ORDERED: cefTRIAXone 2 GM ADDV.VIAL 2 GM in NS 0.9% 100 ml BAG 100 ML IV ONE (06:00)
[2021-11-18] MEDS: NS 0.9% 1000 ml BAG 1,000 ML IV SCH ×3 (06:06→21:26)
[2021-11-18] MEDS: Cholecalciferol (VIT D3) 1,000 unit TAB PO SCH (10:38)
[2021-11-18] MEDS ORDERED: fentaNYL 100 mcg/2 ml 50 MCG/ML VIAL ONE (17:39)
[2021-11-18] MEDS ORDERED: Lidocaine 2% PF 5 ML VIAL ONE (17:39)
[2021-11-18] MEDS ORDERED: Propofol 10 MG/ML 20 ML BTL ONE (17:39)
[2021-11-18] MEDS ORDERED: Dexamethasone IV 4 MG/ML VIAL 1 ml VIAL ONE (17:39)
[2021-11-18] MEDS ORDERED: Ondansetron 4 mg VIAL 2 MG/ML 2 ml VIAL ONE (17:39)
[2021-11-18] MEDS ORDERED: Midazolam 2 mg/2 ml VIAL 1 mg/ml 2 ml VIAL (2 mg) ONE (17:40)
[2021-11-19 07:07] LABS: ABS Lymphocytes 0.4 10^3/ul (1.0-4.8); ABS Monocytes 0.4 10^3/ul (0-0.8); ABS Neutrophils 6.9 10^3/ul (1.5-7.7); Eosinophil % 0.1 %; Hematocrit 31 % (35-47); Hemoglobin 10.2 g/dL (12.0-16.0); Lymphocyte % 5.2 %; Mean Corpuscular HGB Conc 33 g/dL (31-36); Mean Corpuscular Hemoglobin 28 pg (27-31); Mean Corpuscular Volume 85 fL (80-97); Mean Platelet Volume 8.6 fL (7.4-10.4); Platelet Count 109 10^3/uL (150-450); Red Blood Count 3.62 10^6 /uL (3.70-4.87); Red Cell Distribution Width 17 % (10-15); White Blood Count 7.7 10^3/uL (3.5-10.8)
[2021-11-19 07:43] LABS: Calcium 7.1 mg/dL (8.6-10.3); Potassium 4.9 mmol/L (3.5-5.0); eGFR CKD-EPI 55.1 (>60)
[2021-11-19] MEDS: Cholecalciferol (VIT D3) 1,000 unit TAB PO SCH (08:43)
[2021-11-19] MEDS: Ondansetron ODT 4 mg TAB 4 MG TAB PO PRN ×2 (08:44→15:50)
[2021-11-19] MEDS ORDERED: cefTRIAXone 2 GM ADDV.VIAL 2 GM in NS 0.9% 100 ml BAG 100 ML IV SCH (15:30)
[2021-11-20 08:13] LABS: Calcium 7.4 mg/dL (8.6-10.3); Potassium 4.5 mmol/L (3.5-5.0); eGFR CKD-EPI 49.5 (>60)
[2021-11-20] MEDS: Cholecalciferol (VIT D3) 1,000 unit TAB PO SCH (08:38)
[2021-11-20] MEDS: Ondansetron ODT 4 mg TAB 4 MG TAB PO PRN (08:38)
[2021-11-20 08:44] VITALS: BP 117/42
== END 2021-11-20 12:27 | disposition home or self-care (01) | DRG 371 ==
LOC: ED 18:04 → EDHOLD 18:04 → SUATTDRO 11-14 02:28 → INTOOBSV 11-14 02:28 → OBSVTOIN 11-14 02:28 → SSU 11-14 08:40 → SUATTDRO 11-15 14:30
PROVIDERS: ADMIT Student in an Organized Health Care Education/Training Program; ATTEND Student in an Organized Health Care Education/Training Program

== ENCOUNTER 2022-03-30 10:35 | Inpatient (IN) ==
[2022-03-30] MEDS ORDERED: NS 0.9% 1000 ml BAG 1,000 ML IV ONE ×2 (10:50→11:22)
[2022-03-30] MEDS ORDERED: Piperacillin/Tazobac ADVAN 3.375 GM in NS 0.9% 100 ml BAG 100 ML IV ONE (10:51)
[2022-03-30] MEDS ORDERED: fentaNYL 100 mcg/2 ml 50 MCG/ML VIAL IV SLOW PU ONE (11:31)
[2022-03-30 11:32] LABS: Albumin 2.5 g/dL (3.2-5.2); CO2 Carbon Dioxide 16 mmol/L (22-32); Calcium 8.3 mg/dL (8.6-10.3); Chloride 96 mmol/L (101-111); Sodium 126 mmol/L (135-145)
[2022-03-30 11:34] LABS: Anion Gap 14 mmol/L (2-11); High Sens Troponin Baseline 63 pg/mL (<15)
[2022-03-30 11:38] LABS: ALT 76 U/L (7-52); Albumin/Globulin Ratio 1.6 (1-3); Alkaline Phosphatase 995 U/L (35-149); Blood Urea Nitrogen 63 mg/dL (6-24); C Reactive Protein 19.05 mg/L (<8.01); Globulin 1.6 g/dL (2-4); Glucose 144 mg/dL (70-100); Total Protein 4.1 g/dL (6.4-8.9); eGFR CKD-EPI 12.6 (>60)
[2022-03-30 11:51] LABS: Hematocrit 28 % (35-47); Hemoglobin 9.2 g/dL (12.0-16.0); Mean Corpuscular HGB Conc 33 g/dL (31-36); Mean Corpuscular Hemoglobin 34 pg (27-31); Mean Corpuscular Volume 102 fL (80-97); Mean Platelet Volume 8.2 fL (7.4-10.4); Platelet Count 236 10^3/uL (150-450); Red Blood Count 2.73 10^6 /uL (3.70-4.87); Red Cell Distribution Width 16 % (10-15); White Blood Count 13.5 10^3/uL (3.5-10.8)
[2022-03-30 11:59] LABS: Macrocytosis 1+
[2022-03-30 12:04] LABS: ABS Lymphocytes 1.1 10^3/ul (1.0-4.8); ABS Neutrophils 11.3 10^3/ul (1.5-7.7)
[2022-03-30 12:10] LABS: Activated Partial Thrombo Time 54.1 seconds (26.0-38.0)
[2022-03-30 12:13] LABS: INR 9.78 (0.86-1.15)
[2022-03-30 12:56] LABS: High Sensitivity Troponin 1 Hr 57 pg/mL (<15)
[2022-03-30] MEDS ORDERED: Ondansetron 4 mg VIAL 2 MG/ML 2 ml VIAL IV PRN (13:10)
[2022-03-30] MEDS ORDERED: Magnesium Hydroxide LIQ 30 ML UDC PO PRN (13:10)
[2022-03-30] MEDS ORDERED: Ondansetron ODT 4 mg TAB 4 MG TAB SL PRN (13:14)
[2022-03-30] MEDS ORDERED: Atropine 1% (ORAL/SL) 15 ML BTL SL PRN (13:14)
[2022-03-30] MEDS ORDERED: Ondansetron 4 mg VIAL 2 MG/ML 2 ml VIAL IV ONE (13:57)
[2022-03-30 18:42] VITALS: BP 77/37
[2022-03-30] MEDS: Morphine ORAL CONCENTRATE 5 MG/0.25 ML ORAL.SYRIN SL PRN ×2 (19:58→22:41)
[2022-03-31] MEDS: Morphine ORAL CONCENTRATE 5 MG/0.25 ML ORAL.SYRIN SL PRN ×3 (00:36→19:33)
[2022-04-01] MEDS: Morphine ORAL CONCENTRATE 5 MG/0.25 ML ORAL.SYRIN SL PRN ×8 (00:49→22:40)
[2022-04-01] MEDS ORDERED: Lorazepam PYXIS KEY PRN (10:42)
[2022-04-01] MEDS: LORazepam 2 mg VIAL 1 ml IV PUSH PRN (13:55)
[2022-04-02] MEDS: LORazepam 2 mg VIAL 1 ml IV PUSH PRN ×2 (00:22→04:48)
[2022-04-02] MEDS: Morphine ORAL CONCENTRATE 5 MG/0.25 ML ORAL.SYRIN SL PRN ×4 (01:27→09:59)
[2022-04-02] MEDS ORDERED: Morphine ORAL CONCENTRATE 5 MG/0.25 ML ORAL.SYRIN SL PRN (11:48)
[2022-04-02] MEDS: Morphine ORAL CONCENTRATE 5 MG/0.25 ML ORAL.SYRIN SL SCH ×2 (12:26→14:19)
== END 2022-04-02 19:55 | disposition expired | DRG 435 ==
LOC: ED 10:35 → EDHOLD 13:10 → MED 18:13
PROVIDERS: ADMIT Internal Medicine Hematology & Oncology; ATTEND Internal Medicine Hematology & Oncology